=== PATIENT | male | born 1955 | race Caucasian/White ===

== ENCOUNTER 2019-04-13 14:34 | Emergency (ER) | payer MEDICARE ==
[~2019-04-13] VITALS: Ht 182.9 cm; Wt 127.5 kg
[2019-04-13] MEDS ORDERED: MELA3TAB60 PO (15:07)
[2019-04-13] MEDS ORDERED: TRAZ-186 PO (15:07)
[2019-04-13] MEDS ORDERED: CENT1TAB PO (15:07)
[2019-04-13] MEDS ORDERED: GRAL600T PO (15:07)
[2019-04-13] MEDS ORDERED: ACETAMINOPHEN 500 MG TAB PO ONE (15:45)
[2019-04-13] MEDS ORDERED: KETOROLAC 30 MG/ML VIAL (J1885) IM ONE (15:45)
[2019-04-13] MEDS ORDERED: LIDOCAINE 5% (LIDODERM) PATCH TD ONE (15:45)
[2019-04-13] MEDS ORDERED: LISI40TA PO (16:12)
[2019-04-13] MEDS ORDERED: ASPI81CH33 PO (16:12)
[2019-04-13] MEDS ORDERED: CHLO125TA PO (16:12)
[2019-04-13] MEDS ORDERED: XARE15TA PO (16:12)
[2019-04-13] MEDS ORDERED: OXYC-517 PO (16:12)
[2019-04-13] MEDS ORDERED: METO37.5 PO (16:12)
[2019-04-13] MEDS ORDERED: AMLO25TA PO (16:12)
[2019-04-13] MEDS ORDERED: POTA10TA17 PO (16:12)
[2019-04-13] MEDS ORDERED: PERCOCET 5MG/325MG TAB PO ONE (17:00)
[2019-04-13] MEDS ORDERED: PRED20TA PO (17:24)
[2019-04-13 17:30] VITALS: BP 148/78
[2019-04-13] MEDS ORDERED: **NOTE PATIENT COMMENT** MISC XX SCH (21:00)
== END 2019-04-13 17:39 | disposition home or self-care (01) ==
LOC: M ED 14:34
DX: M51.26 Other intervertebral disc displacement, lumbar region (principal); M48.07 Spinal stenosis, lumbosacral region; I10 Essential (primary) hypertension; G47.33 Obstructive sleep apnea (adult) (pediatric); F17.210 Nicotine dependence, cigarettes, uncomplicated
CPT/HCPCS: 96372; 99283; J1885

== ENCOUNTER 2020-01-13 10:28 | Inpatient (IN) | payer MEDICARE ==
[~2020-01-13] VITALS: Ht 182.9 cm; Wt 137.9 kg
[~2020-01-13 10:28] MED LIST: AMLO25TA PO; ASPI81CH33 PO; CENT1TAB PO; CHLO125TA PO; GRAL600T PO; LISI40TA PO; MELA3TAB7 PO; METO37.5 PO; OXYC-517 PO; POTA10TA17 PO; PRED20TA PO; TRAZ-186 PO; XARE15TA PO
[2020-01-13] MEDS ORDERED: NS 500 ML IV ONE (10:45)
[2020-01-13] MEDS ORDERED: AMLO10TA5 PO (10:56)
[2020-01-13] MEDS ORDERED: HYDR50TA70 PO (10:56)
[2020-01-13] MEDS ORDERED: METO1TAB87 PO (10:56)
[2020-01-13] MEDS ORDERED: NS 1,000 ML IV ONE ×2 (11:00→13:30)
[2020-01-13 11:21] LABS: BASO % 0.3 % (0.0-1.0); HEMATOCRIT 34.7 % (42.0-52.0); HEMOGLOBIN 11.5 g/dl (13.5-17.5); LYMPH # 1.6 10^3/uL (1.5-5.0); LYMPH % 11.7 % (24.0-44.0); MEAN CORPUSCULAR HEMOGLOBIN 35.2 pg (27.0-33.0); MEAN CORPUSCULAR HGB CONC 33.1 g/dl (32.0-36.5); MEAN CORPUSCULAR VOLUME 106.1 fl (80.0-96.0); MONO # 0.7 10^3/uL (0.0-0.8); MONO % 5.4 % (0.0-5.0); NEUTROPHILS # 10.9 10^3/uL (1.5-8.5); NEUTROPHILS % 81.8 % (36.0-66.0); PLATELET COUNT, AUTOMATED 211 10^3/uL (150-450); RED BLOOD COUNT 3.27 10^6/uL (4.30-6.10); WHITE BLOOD COUNT 13.3 10^3/uL (4.0-10.0)
[2020-01-13 11:32] LABS: INR 1.77; PROTHROMBIN TIME 20.4 SECONDS (11.8-14.0)
[2020-01-13 11:48] LABS: ALBUMIN 2.6 GM/DL (3.2-5.2); ALT/SGPT 149 U/L (12-78); BILIRUBIN,DIRECT 2.2 MG/DL (0.0-0.2); BILIRUBIN,TOTAL 3.6 MG/DL (0.2-1.0); BLOOD UREA NITROGEN 67 MG/DL (7-18); CALCIUM LEVEL 8.1 MG/DL (8.8-10.2); CARBON DIOXIDE LEVEL 19 MEQ/L (21-32); CHLORIDE LEVEL 91 MEQ/L (98-107); CK-MB VALUE MASS 15.8 NG/ML (<3.6); CPK CREATINE PHOSPHOKINASE 299 U/L (39-308); CREATININE FOR GFR 5.88 MG/DL (0.70-1.30); GLOMERULAR FILTRATION RATE 10.3 (>49); GLUCOSE, FASTING 99 MG/DL (70-100); LIPASE 47 U/L (73-393); MB/CK RELATIVE INDEX 5.28 (< OR =4); POTASSIUM SERUM 4.5 MEQ/L (3.5-5.1); SODIUM LEVEL 124 MEQ/L (136-145); TOTAL PROTEIN 5.9 GM/DL (6.4-8.2); TROPONIN I < 0.02 NG/ML (< 0.10)
[2020-01-13] MEDS ORDERED: ONDANSETRON 4MG/2ML VIAL IV ONE (12:15)
[2020-01-13] MEDS ORDERED: PANTOPRAZOLE SODIUM 40 MG in D5W 50 ML IV SCH (13:45)
[2020-01-13 13:48] LABS: CREATININE,RANDOM URINE 66.9 MG/DL; POTASSIUM RANDOM URINE 11.6 MEQ/L; TOTAL PROTEIN,RANDOM URINE 12.2 MG/DL (0.0-12.0)
[2020-01-13] MEDS ORDERED: OXAZEPAM 10 MG CAP PO PRN (14:00)
[2020-01-13 14:33] LABS: FERRITIN 2281 NG/ML (26-388); IRON (FE) 213 UG/DL (65-175); PERCENT SATURATION 108.1 % (19.7-50.0); TOTAL IRON BINDING CAPACITY 197 UG/DL (250-450)
[2020-01-13 15:07] LABS: FREE T4 0.99 NG/DL (0.76-1.46); MAGNESIUM LEVEL 1.2 MG/DL (1.8-2.4); THYROID STIMULATING HORMONE 0.856 uIU/ML (0.358-3.740)
[2020-01-13] MEDS ORDERED: hydrOXYzine 50 MG TAB PO PRN (15:15)
[2020-01-13] MEDS ORDERED: traZODone 50 MG TAB PO PRN (15:15)
[2020-01-13] MEDS ORDERED: oxyCODONE 5MG TAB PO ONE (15:15)
--- NOTE | 2020-01-13 15:39 | REP ---
REASON FOR EXAM: Hypotension. There are no priors for comparison. The lack of intravenous contrast markedly decreases the sensitivity of the exam. There is no gross mediastinal or hilar adenopathy. There are no pleural or pericardial effusions. For a description of the imaged upper abdomen, see the CT examination of the abdomen and pelvis report made the same day. Bone window technique throughout the exam shows age-related spinal degenerative changes. Evaluation of the lung martin shows basilar respiratory motion artifact obscuring the detail. No significant nodules, masses, or opacities are present. IMPRESSION: Negative limited CT examination of the chest. Electronically Signed by Cole Hernandez DO 01/13/2020 05:22 P
--- NOTE | 2020-01-13 15:52 | REP ---
REASON GIVEN FOR EXAM: Hypotension. The lack of administration of intravenous and oral bowel preparatory contrast decreases the sensitivity of the exam. There are no priors for comparison. There is an abnormal nodular surface to the liver and there is an abnormal caudate left lobe ratio. The images of the upper and mid abdomen obscured by respiratory motion artifact. There are no choleliths. There are no nephroliths. There is bilateral perinephric stranding. There is no hydronephrosis or hydroureter. There are no ureteroliths. Mode artifact from bilateral hip prostheses obscure multiple urinary bladder images. Small urinary bladder calculi cannot be ruled out. Limited evaluation of the intra-abdominal and intrapelvic bowel loops and their mesenteries show no gross abnormalities. Limited evaluation of the abdominal aorta and para-aortic regions show no gross abnormalities. Limited evaluation of the pancreas and adrenal glands show no gross abnormalities. The spleen is unremarkable in appearance although somewhat obscured but motion artifact. There is calcific atherosclerotic change seen in the abdominal aorta. No free fluid or free air is seen in the abdomen or pelvis. Bone window technique throughout the examination shows age-related chronic changes. IMPRESSION: There are cirrhotic features to the liver. This needs to be correlated clinically. Other findings and exam limitations as described above. There is no evidence of acute intra-abdominal or intrapelvic disease on this limited exam. Electronically Signed by Cole Hernandez DO 01/13/2020 05:22 P
[2020-01-13] MEDS: THIAMINE 200MG/2ML VIAL (J3411 PER 100MG) IV SCH ×2 (15:53→22:39)
--- NOTE | 2020-01-13 16:14 | HPE ---
DATE OF ADMISSION: 01/13/2020 CHIEF COMPLAINT: Black, tarry stools. HISTORY OF PRESENT ILLNESS: This is a 64-year-old alcoholic with liver cirrhosis, chronic atrial fibrillation, on Xarelto, who was in his usual state of health until Saturday, when he was driving back from getting blood tests done from his doctor's office with his niece when he had two to three episodes of black vomitus and black, tarry stools with complaints of dizziness and lightheadedness. He was drinking pints of vodka, because he was unable to get pain medications for his back for the past few days. He laid down in bed and put the fan on and had not been eating since Saturday. Patient on Saturday had some bilious emesis and had jet-black voluminous black, tarry stools twice Saturday night and once again Saturday morning, this time accompanied with shortness of breath with some epigastric discomfort without chest pain, pressure, or tightness, again with lightheadedness and dizziness but able to ambulate without falling. Patient says that he had had a prior colonoscopy with two polyps several years ago. No history of gastric varices or esophageal varices but does have a history of liver cirrhosis from alcohol use. Patient felt hot and cold without fever or chills last night. No prior episodes of this. He had been increasingly short of breath for several days and thought it was his chronic obstructive pulmonary disease (COPD). He does still smoke about one and one-half packs a day. Recently has been smoking just a few cigarettes. Patient otherwise denies any fever, chills, bright red blood per rectum, dysuria, urgency, frequency, polyuria, polydipsia, polyphagia, sore throat, changes in vision. He complains of some insomnia, unable to sleep for the last 4 days due to weakness and ongoing gastrointestinal (GI) bleed. Patient denies any nonsteroid anti-inflammatory use and says that he was using oxycodone 5 mg tablets, three tablets during the day, but ran out of prescription, which is why he had been drinking vodka in pints at home. PAST MEDICAL HISTORY: 1. Chronic atrial fibrillation. 2. Alcoholic liver cirrhosis. 3. Hypertension. 4. Chronic back pain. 5. Insomnia. 6. COPD. 7. Obstructive sleep apnea, not compliant. 8. Obesity, body mass index (BMI) of 39.3. 9. Active smoker. 10. Hypertension. PAST SURGICAL HISTORY: 1. Bilateral knee replacement times three. 2. Both hips replaced. SOCIAL HISTORY: Drinks a pint every day of vodka since his teenage years. Smokes one and one-half packs per day of cigarettes since the age of 16. No recreational drug use. Previous worked at [employer]. 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 No healthcare proxy. Full code. FAMILY HISTORY: Father at age 94 with cerebrovascular accident (CVA). No autopsy was performed. Mother at age 93 with coronary artery disease (CAD), myocardial infarction ([place]). He has one brother he does not speak to. REVIEW OF SYSTEMS: Per history of present illness (HPI). A 12-point system otherwise negative. PHYSICAL EXAMINATION: Temperature 97.9, pulse 143, respiratory rate 17, blood pressure 80/56, 98% on room air. GENERAL: Patient is awake, alert, oriented to person, place, and time, answering questions appropriately. No icterus. No jaundice. No pallor. No use of respiratory accessory muscles. No conversational dyspnea. HEENT: Pupils round, reactive. Extraocular muscles are intact. Normocephalic, atraumatic. Patient has no dried blood. Dry mucous membranes. No jugular venous distention (JVD), thyromegaly, cervical lymphadenopathy. No stridor on exam. LUNGS: Diminished with faint wheezing. Prolonged expiratory phase. HEART: S1, S2, irregularly irregular and tachycardic. ABDOMEN: Obese, Soft. Slightly tender in epigastric region. No rebound or guarding. No fluid wave. EXTREMITIES: Trace edema, bilateral lower extremities. EKG: Atrial fibrillation. Telemetry shows rate of 125. White count 13.3, hemoglobin 11.5, hematocrit 34.7, platelet count 211. Sodium 124, potassium 4.5, chloride 91, bicarbonate 19, BUN 67, creatinine 5.88, glucose 99, lactic acid 3.6, calcium 8.1. Iron 213, TIBC 1997, transferrin 108, ferritin 2281. Total bilirubin 3.6, direct bilirubin 2.2. AST 149, alkaline phosphatase 67. Ammonia 36. Total CK 299, MB fraction 15.8, troponin less than 0.02. Total protein 5.9, albumin 2.6. Microbiology: Two sets of blood cultures pending. CT chest, abdomen pelvis: Pending report. Blood type A positive, negative antibody screen. ASSESSMENT AND PLAN: This is a 64-year-old obese male, BMI of 39.3, obstructive sleep apnea (DEYSI), noncompliant, chronic atrial fibrillation, on Xarelto, hypertension, chronic alcohol abuse, active smoker, chronic back pain, presents to the emergency room with complaints of melena since Saturday and black vomitus. Patient is admitted for gastrointestinal (GI) bleed. CURRENT ISSUES: 1. ACUTE GI bleed with complaints of melena. Hemoglobin is 11.5. Patient complained of symptomatic anemia with lightheadedness and dizziness and worsening shortness of breath. This is in the setting of Xarelto use and alcoholic liver cirrhosis with probable portal gastropathy and possible peptic ulcer disease or alcoholic gastritis. He has been started on Protonix intravenous drip 80 mg intravenous (IV) bolus and 8 mg per hour, Carafate 1 gram suspension before food and at bedtime. Clear liquid diet for now. His Xarelto has been held due to active GI bleed. 2 Acute blood loss anemia secondary to melena, most likely upper GI bleed. General surgeon, Dr. Cardenas, has been consulted to schedule for esophagogastroduodenoscopy (EGD). We will need to see if he has clean base ulcers versus oozing versus variceal bleeding, currently on Protonix intravenous drip and Carafate. If varices are seen, we may need to use octreotide drip. At this time, patient has adequate IV access. If that becomes an issue, he may need a peripherally inserted central catheter (PICC) line or a central line placed by surgery. He is currently hemodynamically stable with systolic pressure improving after IV fluid hydration from 80/56 systolic to 120/61. He is 1.5 liter positive with no complaints of worsening shortness of breath. 3. COPD with wheezing, possible acute exacerbation. At this time, patient will be given nebulizer treatments around the clock with Xopenex, as the patient has significant tachycardia from his atrial fibrillation with rapid ventricular response (RVR). No steroid use for now due to active GI bleed. 4. Atrial fibrillation with RVR. Ventricular rate was 143 on arrival. Patient had chronic atrial fibrillation and will be resumed on his home metoprolol 25 twice a day. Xarelto will be held due to active bleeding. 5. Hypertension. Currently with low blood pressure. Will hold patient's lisinopril. He has been given IV fluids to improve his systolic pressure; however, for rate control he has been given 25 mg of Lopressor. 6. If needed, patient can be given IV boluses of normal saline to increase the blood pressure and be able to use the metoprolol for better rate control at 25 mg twice a day. Home dose for now but may be increased to every 6 hours for better rate control. Again, it has been explained to the patient that anticoagulation with Xarelto will be held in light of active GI bleed despite the risk of cerebrovascular accident (CVA). 7. Alcoholic liver cirrhosis. Patient is on Clinical Sarah [facility] Withdrawal Assessment (CIWA) protocol. Serax as needed every 6 hours for withdrawal symptoms. He has been given thiamine, multivitamin, and folic acid. IV fluids given for now. 8. Hyponatremia, most likely secondary to beer potomania. Monitor with every 6 hour metabolic panel. Try to avoid more than 12 mEq increase in the sodium due to central pontine myelolysis. 9. Acute kidney injury, creatinine of 5.88 due to significant diarrhea and vomiting with metabolic acidosis. At this time, patient has been given IV fluids. Will monitor strict intake and output, daily weights. Awaiting result of CT abdomen and pelvis to rule out obstructive causes. At this time it appears to be prerenal azotemia due to dehydration from both vomiting and diarrhea and continued beer and vodka use. 10. Metabolic acidosis secondary to renal failure. Will correct once the hydration is improved. 11. Abnormal liver function tests due to alcohol liver cirrhosis. Check hepatitis serology. 12. Abnormal cardiac markers due to severe anemia with possible demand-mediated ischemia. Will cycle cardiac markers. Unable to provide any anticoagulation due to active GI bleed. Monitor patient's blood pressure and transfuse blood if the hemoglobin is less than 9. 13. Code status is a full code. 14. Deep vein thrombosis (DVT) prophylaxis with compression stockings in light of acute GI bleed. MTDD
[2020-01-13] MEDS: FOLIC ACID 1 MG in NS 50 ML IV SCH (16:22)
--- NOTE | 2020-01-13 16:43 | CR.PDOC ---
General Surgery Consultation Date of Consultation 01/13/20 History and Physical CONSULT REPORT FOR: HOSPITALIST SERVICE (DELANO BARRETO MD) REASON FOR CONSULTATION: gastrointestinal bleeding HISTORY OF PRESENT ILLNESS: I'm being asked to consult on Mr. Johnson who presented himself to the emergency room today with complaints of three-day history of hematemesis and melena. He has a known history of alcoholic liver cirrhosis, continues to be an active drinker. He is also on Xarelto for chronic atrial fibrillation. He reports throwing up blood Saturday having some midepigastric discomfort. Patient reports some mild dizziness and lightheadedness. On Saturday he started having episodes of melena also had some bilious vomiting saturday evening. This prompted him to consult at the emergency room today and subsequently be admitted for suspicion of upper gastrointestinal bleeding probably related to his alcohol drinking and cirrhosis. He denies intake of any NSAIDs recently. He denies any prior episodes of similar symptoms. Last episode of melena was this morning. In the emergency room he is hemodynamically stable. His hemoglobin is 11.5 and hematocrit is 34.7. His platelets are 211 and INR is 1.7. He has elevated LFTs including a tot al bilirubin of 3.6 with a direct fraction of 2.2. PAST MEDICAL HISTORY: 1. Chronic atrial fibrillation 2. Alcoholic liver cirrhosis 3. Hypertension 4. Chronic back pain 5. Obstructive sleep apnea not on CPAP 6. Obesity BMI of 39.3 7. COPD PAST SURGICAL HISTORY: INCLUDES: 1. Bilateral hip replacement 2. Arthroscopic knee surgery PREVIOUS ANESTHESIA REACTIONS: Denies ALLERGIES: Please see below. FAMILY HISTORY: Noncontributory. HOME MEDICATIONS: Please see below. REVIEW OF SYSTEMS: GENERAL: Patient reports about 80 pounds weight gain for the past year. HEENT: Denies blurred vision and double vision. Denies ear symptoms. Denies hoarseness. NECK: Denies any neck pain CARDIOVASCULAR: Reports a vague midsternal chest discomfort. MUSCULOSKELETAL: Reports bed back, has been having problems with obtaining a medications for this. SKIN: Denies rash. NEUROLOGIC: Denies headache, stroke and transient ischemic attack. PSYCHIATRIC: Denies anxiety and depression. ENDOCRINE: Denies thyroid disease. HEMATOLOGY/ONCOLOGY: Patient is on Xarelto. Last intake was Saturday or Saturday. HEART: Denies any chest pains, palpitations, paroxysmal dyspnea, orthopnea. PULMONARY: Denies chronic cough, dyspnea and wheezing. GASTROINTESTINAL: See HPI. GENITOURINARY: Denies dysuria, frequency, hematuria and nocturia. ENDOCRINE: Denies polydipsia, polyphagia, polyuria, heat or cold intolerance. INFECTIOUS: Denies any recent upper respiratory tract infection, UTI, need for use of antibiotics. NUTRITION: Reports good appetite. PHYSICAL EXAMINATION: VITALS SIGNS: Please see below. GENERAL APPEARANCE: Patient seen at the critical care room, relatively comfortable in appearance. He is awake, alert and oriented. SKIN: Warm and dry. HEENT: Normocephalic, atraumatic. [place] palpebral conjunctiva, anicteric s clerae. Lips and mucosa appear dry. NECK: Supple, no thyromegaly. No obvious jugular venous distention. LUNGS: Clear to auscultation bilaterally. No wheezing appreciated. HEART: No chest wall abnormalities. irregular rate and rhythm. ABDOMEN: Abdomen is obese, soft, round. Small visible superficial abdominal veins. No umbilical herniation. Nontender on palpation. EXTREMITIES: No significant extremity edema ANCILLARIES: . LABORATORY DATA: Please see below. IMAGING STUDIES: His CT of abdomen and pelvis as well as a chest CT performed in the emergency room. He does have a cirrhotic-appearing liver. No associated ascites IMPRESSION AND PLAN: Upper gastrointestinal bleeding Liver cirrhosis Patient started having symptoms Saturday with hematemesis and has been having melena for the past 3 days. He looks to be try and he does have some mild acidosis. His hemoglobin is relatively stable at 11.5. His last intake, Xarelto was at least 2 days ago. We will proceed with an upper endoscopy and paper particular attention and local for esophageal varices reviewed and gastric repair see some other sources of possible bleed on the cirrhotic patient. I discussed with him possible need for intervention including variceal banding, injection or sclerosis. Consent was obtained from the patient. He currently is on an octreotide drip as well as a Protonix drip. Likewise is getting IV fluids for hydration. We will proceed with upper endoscopy with availability of the operating room.. Vital Signs Vital Signs Date Time Temp Pulse Resp B/P (MAP) Pulse Ox O2 Delivery O2 Flow Rate FiO2 01/13/20 15:57 96/50 01/13/20 15:47 91 93 Room Air 01/13/20 15:17 18 01/13/20 14:17 97.9 Laboratory Data Labs 24H Laboratory Tests 2 01/13/20 10:58: Immature Granulocyte % (Auto) 0.8, Neutrophils (%) (Auto) 81.8H, Lymphocytes (%) (Auto) 11.7L, Monocytes (%) (Auto) 5.4H, Eosinophils (%) (Auto) 0.0, Basophils (%) (Auto) 0.3, Neutrophils # (Auto) 10.9H, Lymphocytes # (Auto) 1.6, Monocytes # (Auto) 0.7, Eosinophils # (Auto) 0.0, Basophils # (Auto) 0.0, Reticulocyte # (auto) 79.4H, Nucleated Red Blood Cells % (auto) 0.0, Differential Slide Review Report, Peripheral Blood Smear Path Consult PERIPHERAL SMEAR, Percent Reticulocyte Count 2.5H, Reticulocyte Hemoglobin Equivalent 39.7H, Prothrombin Time 20.4H, Prothromb Time International Ratio 1.77, Anion Gap 14, Glomerular Filtration Rate 10.3L, Lactic Acid Level 3.6*H, Calcium Level 8.1L, Iron Level 213H, Total Iron Binding Capacity 197L, Transferrin % Saturation 108.1H, Ferritin 2281H, Total Bilirubin 3.6H, Direct Bilirubin 2.2H, Aspartate Amino Transf (AST/SGOT) 230H, Alanine Aminotransferase (ALT/SGPT) 149H, Alkaline Scout sphatase 67, Ammonia 36H, Total Creatine Kinase 299, Creatine Kinase MB 15.8H, Creatine Kinase MB Relative Index 5.28H, Troponin I < 0.02, Total Protein 5.9L, Albumin 2.6L, Albumin/Globulin Ratio 0.8, Lipase 47L 01/13/20 13:03: Urine Random Osmolality 271L, Urine Random Creatinine 66.9, Urine Random Total Protein 12.2H, Urine Random Sodium 64, Urine Random Potassium 11.6 01/13/20 13:06: Urine Color YELLOW, Urine Appearance CLEAR, Urine pH 5.0, Urine Specific [place] 1.005, Urine Protein NEGATIVE, Urine Glucose (UA) NEGATIVE, Urine Ketones NEGATIVE, Urine Blood 1+H, Urine Nitrite NEGATIVE, Urine Bilirubin NEGATIVE, Urine Urobilinogen 0.2, Urine Leukocyte Esterase NEGATIVE, Urine WBC (Auto) 1, Urine RBC (Auto) 4H, Urine Hyaline Casts (Auto) 0, Urine Bacteria (Auto) NEGATIVE, Urine Squamous Epithelial Cells 0, Urine Sperm (Auto) 01/13/20 14:10: Total Creatine Kinase 378H, Osmolality 304H, Magnesium Level 1.2L, Thyroid Stimulating Hormone (TSH) 0.856, Free Thyroxine 0.99 01/13/20 15:24: 01/13/20 15:55: CBC/BMP Laboratory Tests 01/13/20 10:58 Microbiology Microbiology 01/13/20 Blood Culture, Received Pending 01/13/20 Blood Culture, Received Pending Home Medications Scheduled Amlodipine Besylate (Amlodipine Besylate) 10 Mg Tablet, 10 MG PO DAILY, (Reported) Chlorthalidone (Chlorthalidone) 25 Mg Tablet, 25 MG PO DAILY, (Reported) Lisinopril (Lisinopril) 40 Mg Tablet, 40 MG PO DAILY, (Reported) Metoprolol Tartrate (Metoprolol Tartrate) 25 Mg Tablet, 25 MG PO BID, (Reported) Multivit-Min/FA/Lycopen/Lutein (Centrum Silver Tablet) 1 Each Tablet, 1 TAB PO DAILY, (Reported) Rivaroxaban (Xarelto) 15 Mg Tablet, 15 MG PO DAILY, (Reported) Scheduled PRN Hydroxyzine HCl (Hydroxyzine HCl) 50 Mg Tablet, 50 MG PO QHS PRN for SLEEP, (Reported) Oxycodone HCl (Oxycodone HCl) 5 Mg Tablet, 5 MG PO Q8H PRN for pain, (Reported) Trazodone HCl (Trazodone HCl) 50 Mg Tablet, 75 MG PO QHS PRN for SLEEP, (Reported) Allergies Coded Allergies: No Known Allergies (Unverified , 04/13/19) CONNER BEAN MD Jan 13, 2020 16:43
[2020-01-13 17:00] VITALS: BP 101/74
[2020-01-13] MEDS: METOPROLOL TART 25 MG TABLET PO SCH ×2 (17:40→21:00)
[2020-01-13] MEDS ORDERED: OCTREOTIDE ACETATE 1,200 MCG in NS 238.8 ML IV SCH (18:00)
[2020-01-13] MEDS: NS 1,000 ML IV SCH ×3 (18:41→22:39)
[2020-01-13] MEDS: MULTIVITAMINS/MINERALS THERAP 1 TAB PO SCH (18:41)
[2020-01-13] MEDS: ONDANSETRON 4MG/2ML VIAL IV SCH (18:41)
[2020-01-13] MEDS: SUCRALFATE SUSP 1GM/10ML UD PO SCH ×3 (18:41→22:38)
[2020-01-13 18:44] LABS: HEMATOCRIT 31.8 % (42.0-52.0); HEMOGLOBIN 10.4 g/dl (13.5-17.5)
[2020-01-13 19:07] LABS: CALCIUM LEVEL 7.2 MG/DL (8.8-10.2); CREATININE FOR GFR 4.95 MG/DL (0.70-1.30); GLOMERULAR FILTRATION RATE 12.6 (>49); POTASSIUM SERUM 4.2 MEQ/L (3.5-5.1)
[2020-01-13 20:30] VITALS: BP 114/69
[2020-01-13] MEDS ORDERED: LIDOCAINE 2% 100MG/5ML SDV (FOR ANES.) As Ordered ONE (20:46)
[2020-01-13] MEDS ORDERED: propofoL 200 MG/20 ML VIAL As Ordered ONE ×2 (20:46→21:26)
--- NOTE | 2020-01-13 21:43 | ROOR ---
Patient Name: Sebastian Johnson Procedure Date: 01/13/2020 7:50 PM Date of : 1955 Age: 64 Gender: Male Note Status: Finalized Procedure: Upper GI endoscopy Indications: Acute post hemorrhagic anemia Providers: Dale Cardenas MD Referring MD: 2. Inpatient 2. Inpatient Requesting Provider: Medicines: Monitored Anesthesia Care Complications: No immediate complications. Procedure: Pre-Anesthesia Assessment: - Prior to the procedure, a History and Physical was performed, and patient medications and allergies were reviewed. The patient is competent. The risks and benefits of the procedure and the sedation options and risks were discussed with the patient. All questions were answered and informed consent was obtained. Patient identification and proposed procedure were verified by the physician, the nurse and the anesthesiologist in the procedure room. Mental Status Examination: alert and oriented. Airway Examination: normal oropharyngeal airway and neck mobility. Respiratory Examination: clear to auscultation. CV Examination: irregularly irregular rate and rhythm. Prophylactic Antibiotics: The patient does not require prophylactic antibiotics. Prior Anticoagulants: The patient has taken Xarelto (rivaroxaban), last dose was 2 days prior to procedure. ASA Grade Assessment: III - A patient with severe systemic disease. After reviewing the risks and benefits, the patient was deemed in satisfactory condition to undergo the procedure. The anesthesia plan was to use monitored anesthesia care (MAC). Immediately prior to administration of medications, the patient was re-assessed for adequacy to receive sedatives. The heart rate, respiratory rate, oxygen saturations, blood pressure, adequacy of pulmonary ventilation, and response to care were monitored throughout the procedure. The physical status of the patient was re-assessed after the procedure. The Endoscope was introduced through the mouth, and advanced to the second part of duodenum. The upper GI endoscopy was accomplished without difficulty. The patient tolerated the procedure well. Findings: There is no endoscopic evidence of bleeding, areas of erosion, esophagitis or varices in the entire esophagus. Diffuse mild inflammation with hemorrhage characterized by adherent blood, congestion (edema), friability and linear erosions was found in the gastric body. For hemostasis, one hemostatic clip was successfully placed (MR conditional). There was no bleeding at the end of the procedure. No ulcers, but with diffuse friability, contact bleeding at the mid body. There is ome persistent slow oozing at the distal body that was clipped with good hemostasis. Diffuse granular mucosa was found in the duodenal bulb. The second portion of the duodenum was normal. Impression: - Acute gastritis with hemorrhage. Clip (MR conditional) was placed. - No specimens collected. Recommendation: - Admit the patient to [facility] for [facility] care. - Use Protonix (pantoprazole) 40 mg PO BID for 6 weeks. Dale Cardenas MD Dale Cardenas MD 01/13/2020 9:42:27 PM Electronically signed by Dale Cardenas MD Number of Addenda: 0 Note Initiated On: 01/13/2020 7:50 PM Estimated Blood Loss: Estimated blood loss was minimal.
[2020-01-13 22:30] VITALS: BP 101/75
[2020-01-13] MEDS: oxyCODONE 5MG TAB PO PRN (22:47)
[2020-01-13 23:00] VITALS: BP 98/65
[2020-01-13 23:30] VITALS: BP 106/64
[2020-01-14] VITALS (8 sets, daily range): BP systolic 96–133; BP diastolic 54–84
--- NOTE | 2020-01-14 00:19 | ECGEPIP ---
[facility] - ED Test Date: 2020-01-13 Pat Name: KATHIE FOFANA Department: Room: - Gender: Male Plant [employer]: : 1955 Requested By: Trini Rodriguez Order Number: [id number] Reading MD: Reynold Ray Measurements Intervals [place] Rate: 120 P: [place]: 0 QRS: 56 QRSD: 77 T: 56 QT: 311 QTc: 439 Interpretive Statements ATRIAL FIBRILLATION WITH RAPID VENTRICULAR RESPONSE Low QRS complex voltage in the limb leads Nonspecific ST-T wave abnormalities Comparison tracing not on file Electronically Signed on 01-14-2020 0:18:30 EDT by Reynold Ray
[2020-01-14] MEDS: ONDANSETRON 4MG/2ML VIAL IV SCH ×4 (00:38→17:54)
[2020-01-14 00:42] LABS: HEMATOCRIT 31.8 % (42.0-52.0); HEMOGLOBIN 10.6 g/dl (13.5-17.5)
[2020-01-14 01:25] LABS: CALCIUM LEVEL 7.3 MG/DL (8.8-10.2); CREATININE FOR GFR 4.88 MG/DL (0.70-1.30); GLOMERULAR FILTRATION RATE 12.8 (>49); POTASSIUM SERUM 4.4 MEQ/L (3.5-5.1)
[2020-01-14 07:47] LABS: BASO % 0.4 % (0.0-1.0); EOS # 0.1 10^3/uL (0.0-0.5); EOS % 0.6 % (0.0-3.0); HEMATOCRIT 30.2 % (42.0-52.0); HEMOGLOBIN 9.9 g/dl (13.5-17.5); LYMPH # 2.3 10^3/uL (1.5-5.0); LYMPH % 27.4 % (24.0-44.0); MEAN CORPUSCULAR HEMOGLOBIN 34.9 pg (27.0-33.0); MEAN CORPUSCULAR HGB CONC 32.8 g/dl (32.0-36.5); MEAN CORPUSCULAR VOLUME 106.3 fl (80.0-96.0); MONO # 0.6 10^3/uL (0.0-0.8); MONO % 7.6 % (0.0-5.0); NEUTROPHILS # 5.2 10^3/uL (1.5-8.5); NEUTROPHILS % 63.4 % (36.0-66.0); PLATELET COUNT, AUTOMATED 123 10^3/uL (150-450); RED BLOOD COUNT 2.84 10^6/uL (4.30-6.10); WHITE BLOOD COUNT 8.3 10^3/uL (4.0-10.0)
[2020-01-14 08:07] LABS: ALBUMIN 2.4 GM/DL (3.2-5.2); BILIRUBIN,TOTAL 1.6 MG/DL (0.2-1.0); CALCIUM LEVEL 7.1 MG/DL (8.8-10.2); CREATININE FOR GFR 4.49 MG/DL (0.70-1.30); GLOMERULAR FILTRATION RATE 14.1 (>49); MAGNESIUM LEVEL 1.3 MG/DL (1.8-2.4); POTASSIUM SERUM 4.1 MEQ/L (3.5-5.1); TOTAL PROTEIN 5.3 GM/DL (6.4-8.2)
[2020-01-14] MEDS: THIAMINE 200MG/2ML VIAL (J3411 PER 100MG) IV SCH ×2 (08:21→21:28)
[2020-01-14] MEDS: SUCRALFATE SUSP 1GM/10ML UD PO SCH ×4 (08:21→21:26)
[2020-01-14] MEDS: MULTIVITAMINS/MINERALS THERAP 1 TAB PO SCH (08:22)
[2020-01-14] MEDS: METOPROLOL TART 25 MG TABLET PO SCH ×2 (08:22→21:00)
[2020-01-14] MEDS: oxyCODONE 5MG TAB PO PRN ×3 (08:23→21:27)
[2020-01-14] MEDS ORDERED: NS 500 ML IV ONE (08:30)
[2020-01-14] MEDS ORDERED: PANTOPRAZOLE 40MG VIAL (C9113 PER 1) IV SCH (09:00)
[2020-01-14] MEDS: MAG SULF 1GM/100ML (MAG RUN) 1 GM in IV 1 EA IV SCH ×3 (09:57→12:11)
[2020-01-14] MEDS: NS 1,000 ML IV SCH ×2 (09:57→17:56)
--- NOTE | 2020-01-14 14:50 | IPNPDOC ---
Text Note Date of Service The patient was seen on 01/14/20. NOTE Subjective: Patient is a 64-year-old male with a PMHx of Alcoholic liver cirrhosis, Chronic A. fib (on Xarelto), HTN, COPD, DEYSI (not complaint with CPAP), Obesity, Chronic back pain, Insomnia, Active smoker who presented to the hospital with complaints of dark colored stool and vomiting of dark colored vomitus on Saturday. Patient continues to experience episodes of dark-colored stool Saturday and Saturday morning. Patient came to the emergency room after he began to experience some chest discomfort and shortness of breath. Patient was admitted to the hospitalist service for acute blood loss anemia in general surgery was consulted for EGD Patient was seen and examined at the bedside. Patient reports that he's feeling better. Denies any chest pain, shortness of breath or palpitations. Has not experienced any further nausea or vomiting. Has not had any bowel movements since the ER yesterday. Denies any urinary discomfort. Objective: Vitals (See below) General: Lying in bed, appears comfortable, AAOx3 HEENT: NC, AT CVS: +S1S2 Lungs: Fair air entry b/l, no appreciable wheezing, rhonchi or rales Abdomen: Soft, ND, NT Extremities: No evidence of LE edema, - Calf tenderness Assessment and plan: Acute blood loss anemia / symptomatic anemia - likely 2/2 upper GI bleed - 2/2 - Patient denies any recent nausea, vomiting episodes this morning. Has not had a bowel movement since yesterday when he was in the ER - Reports that he feels significantly better from the point of admission - Hemodynamically stable and afebrile - Hg remains stable; has not required any transfusions - Will continue to follow H&H - EGD 01/12: Acute gastritis with hemorrhage. s/p clip - s/p Octreotide drip - Will DC Protonix IV and transition to Protonix PO - Will advance diet - Case discussed with general surgery, Dr. Cardenas - on consultation; will continue to advance diet and adjust medications to PO form; will continue to hold Xarelto for 14 days Chronic COPD - No evidence of exacerbation - Chest CT 01/12: Negative limited CT examination of the chest. - c/w inhaled therapy as ordered Atrial fibrillation with RVR - Patient was tachycardic on admission - c/w Metoprolol for rate control - s/p Xarelto (re: acute GI bleed) HTN - BP well controlled currently - Chlorthalidone / Lisinopril / Amlodipine on hold for now - c/w metoprolol with hold parameters Alcoholic liver cirrhosis - Abdomen is benign on examination - AST / ALT improving; Ratio at 2:1 - CT abdomen / pelvis 01/12: There are cirrhotic features to the liver. This needs to be correlated clinically. Alcohol abuse - Advised cessation of alcohol consumption - c/w Thiamine, Folate, MVI - c/w [facility] Protocol Acute kidney injury - likely 2/2 pre-renal etiology - c/w IV fluid hydration - Nephrology has been called on consultation Hyponatremia - likely 2/2 hypotonic hypovolemic etiology - s/p IV fluid hydration - Will repeat BMP this afternoon - Nephrology has been called on consultation s/p Metabolic acidosis - possibly 2/2 renal failure DVT prophylaxis - c/w TEDs/Sequentials Disposition: - Awaiting improvement of renal function - Will monitor Na levels - Will ensure H&H stability VS,Dariae, I+O VS, Dariae, I+O Laboratory Tests 01/13/20 18:23 01/14/20 00:18 01/14/20 07:29 Vital Signs Date Time Temp Pulse Resp B/P (MAP) Pulse Ox O2 Delivery O2 Flow Rate FiO2 01/14/20 09:20 18 Room Air 01/14/20 08:23 130/70 01/14/20 08:22 85 01/14/20 06:00 97.4 93 I&O- Last 24 Hours up to 6 AM 01/14/20 06:00 Intake Total 3200 ml Output Total 1000 ml Balance 2200 ml ONUR SOLITARIO MD Jan 14, 2020 14:50
[2020-01-14 16:00] LABS: BASO % 0.4 % (0.0-1.0); EOS # 0.1 10^3/uL (0.0-0.5); EOS % 1.4 % (0.0-3.0); HEMATOCRIT 30.4 % (42.0-52.0); HEMOGLOBIN 9.9 g/dl (13.5-17.5); LYMPH # 2.2 10^3/uL (1.5-5.0); LYMPH % 26.9 % (24.0-44.0); MEAN CORPUSCULAR HEMOGLOBIN 35.4 pg (27.0-33.0); MEAN CORPUSCULAR HGB CONC 32.6 g/dl (32.0-36.5); MEAN CORPUSCULAR VOLUME 108.6 fl (80.0-96.0); MONO # 0.8 10^3/uL (0.0-0.8); MONO % 9.6 % (0.0-5.0); NEUTROPHILS # 4.9 10^3/uL (1.5-8.5); NEUTROPHILS % 61.2 % (36.0-66.0)
--- NOTE | 2020-01-14 16:00 | IPNPDOC ---
Text Note Date of Service The patient was seen on 01/14/20. NOTE I followed up in the patient today. Endoscopy done yesterday shows mainly terry ritis without any ulcerations nor any evidence of varices. He denies any abdominal pain. No clinical signs of bleeding. Vital signs Hemodynamically stable non-tachycardic On exam Patient looks very comfortable Abdomen is soft, nondistended, nontender Irregular, irregular heart rate Impression Upper GI bleed secondary to gastritis Liver cirrhosis Continue with twice a day PPI for at least 6 weeks. I'll advance him to a soft diet if he is able to tolerate it can go home with this type of diet. Continue to hold the surrounding toe for 2 weeks. Patient is advised to refrain from alcohol intake He probably should have an outpatient referral to gastroenterology with regards to his liver cirrhosis, abnormal LFTs. VS,Fishbone, I+O VS, Fishbone, I+O Laboratory Tests 01/13/20 18:23 01/14/20 00:18 01/14/20 07:29 Vital Signs Date Time Temp Pulse Resp B/P (MAP) Pulse Ox O2 Delivery O2 Flow Rate FiO2 01/14/20 14:00 97.3 93 19 133/84 (100) 99 Room Air I&O- Last 24 Hours up to 6 AM 01/14/20 05:59 Intake Total 2900 ml Output Total 625 ml Balance 2275 ml CONNER BEAN MD Jan 14, 2020 16:00
[2020-01-14] MEDS: FOLIC ACID 1 MG in NS 50 ML IV SCH (16:12)
[2020-01-14 17:27] LABS: CALCIUM LEVEL 7.1 MG/DL (8.8-10.2); CREATININE FOR GFR 4.21 MG/DL (0.70-1.30); GLOMERULAR FILTRATION RATE 15.2 (>49); MAGNESIUM LEVEL 2.1 MG/DL (1.8-2.4)
[2020-01-14] MEDS: GABAPENTIN 100 MG CAP PO SCH (17:54)
[2020-01-14] MEDS: PANTOPRAZOLE 40MG TAB (PROTONIX) PO SCH (21:27)
[2020-01-15] MEDS: ONDANSETRON 4MG/2ML VIAL IV SCH ×5 (00:48→23:43)
[2020-01-15 06:00] VITALS: BP 98/72
[2020-01-15] MEDS: SUCRALFATE SUSP 1GM/10ML UD PO SCH ×4 (07:56→20:22)
[2020-01-15] MEDS: METOPROLOL TART 25 MG TABLET PO SCH ×2 (09:00→20:24)
[2020-01-15] MEDS: PANTOPRAZOLE 40MG TAB (PROTONIX) PO SCH ×2 (09:34→20:24)
[2020-01-15] MEDS: MULTIVITAMINS/MINERALS THERAP 1 TAB PO SCH (09:34)
[2020-01-15] MEDS: THIAMINE 200MG/2ML VIAL (J3411 PER 100MG) IV SCH ×2 (09:34→20:22)
[2020-01-15] MEDS: GABAPENTIN 100 MG CAP PO SCH ×2 (09:34→20:23)
[2020-01-15] MEDS: oxyCODONE 5MG TAB PO PRN ×2 (09:45→20:23)
--- NOTE | 2020-01-15 09:48 | CR ---
DATE OF CONSULTATION: 01/14/2020 REQUESTING PHYSICIAN: Dr. Chandra Holley CONSULTING PHYSICIAN: Dr. Lomas REASON FOR CONSULTATION: Management of acute renal failure. CHIEF COMPLAINT: The patient presented to the hospital yesterday with hematemesis and melena. HISTORY OF PRESENT ILLNESS: Mr. Sebastian Johnson is a 64-year-old male with past medical history of hypertension, liver cirrhosis, chronic atrial fibrillation anticoagulated with Xarelto, and unknown baseline renal function. He presented to the emergency room yesterday with about 3-day history of coffee-ground emesis and black tarry stools and because of that the patient was dizzy and lightheaded. He kept taking his pain medications and also admits to drinking alcohol. He drank about a pint of vodka. He was admitted under the hospitalist service with acute upper gastrointestinal (GI) bleed. He was also in atrial fibrillation with rapid ventricular response (RVR) on arrival. The patient was found to have a creatinine of 5.8. He got volume resuscitated on arrival. He got emergent upper GI endoscopy done and two clips were placed. The nephrology service was called for further help in the management of this patient's acute renal failure. I saw and evaluated the patient today morning at the bedside. He was getting IV fluid hydration. The patient was feeling very hungry and he reports no more episodes of vomiting or melena after the procedure. The patient reports that his urine output is improving today as compared with yesterday. PAST MEDICAL HISTORY: Past medical history of liver cirrhosis, history of hypertension, chronic atrial fibrillation, history of alcohol abuse, hypertension, chronic back pain, chronic obstructive pulmonary disease (COPD), obstructive sleep apnea noncompliant with C-PAP. PAST SURGICAL HISTORY: Bilateral knee replacements and hip replacements. ALLERGIES: NO KNOWN DRUG ALLERGIES. FAMILY HISTORY: No significant family history of end-stage renal disease requiring hemodialysis. SOCIAL HISTORY: The patient lives at home. He drinks a pint of Vodka every day. He smokes one and half pack of cigarettes daily since age 16. REVIEW OF SYSTEMS: Constitutional: The patient was weak on arrival; however, he feels much better today. He denies any fevers or chills. Eyes: He denies any blurry vision or double vision. ENT: He denies any dysphagia or odynophagia. Cardiovascular: He denies any chest pain, but he did have atrial fibrillation with RVR on arrival yesterday. Respiratory: He denies any shortness of breath at this time. GI: He had melena and hematemesis on arrival; however, he denies any episodes at this time. Genitourinary: He reports improving urine output. Musculoskeletal: He denies any muscle aches and pains. Skin: He denies any rashes or ulcers. Hematology/Oncology: He had GI bleed on arrival. Skin: He denies any rashes or ulcers. Endocrine: He denies any history of diabetes. PEDIATRIC SPEECH LANGUAGE PATHOLOGIST: He denies any seizures or stroke. All other review of systems is negative. PHYSICAL EXAMINATION: General: The patient is awake, alert, oriented x3, morbidly obese, laying in the bed. Vital Signs: Temperature 97.4 degrees Fahrenheit, blood pressure 102/81, pulse is 93, respiratory rate of 20, saturating 93% on room air. The patient was hypotensive on arrival yesterday with a blood pressure of 80/56 recorded yesterday. Head and Neck Exam: Extraocular muscles intact. Pupils equally round and reactive to light. Mucous membranes are moist. Neck is supple. There is no jugular venous distention (JVD). Cardiovascular: S1, S2. Regular rate. No edema of the bilateral lower extremities. Respiratory: Chest is clear to auscultation bilaterally. Bilateral equal air entry. No rales or rhonchi. Abdomen: Soft, obese, positive bowel sounds. Nontender. No organomegaly was noted. Genitourinary: Bladder is not palpable. Musculoskeletal: No clubbing or cyanosis. Pulses are 2+. PEDIATRIC SPEECH LANGUAGE PATHOLOGIST: No focal deficit. Power is 5/5 in all extremities. Skin: No rashes or ulcers. LAB REVIEW: CBC showed a WBC of 8, hemoglobin is 9.9 and platelets are 123. INR was 1.7 yesterday. Urinalysis on arrival showed 1+ blood, no protein. BMP on arrival showed sodium 124, potassium 4.5, chloride 91, bicarb 19, BUN 67, creatinine 5.8, calcium 8.1, total bilirubin 3.6, AST 230, ALT 149, ammonia was 36. He had a lactate of 3.6 on arrival. BMP done today morning showed sodium 132, potassium 4, chloride 100, bicarb 23, BUN 55, creatinine 4.2, calcium 7.1, and magnesium is 2.1. Microbiology: Blood cultures negative. GI panel is negative. IMAGING: CT scan of the abdomen and pelvis was done on arrival which showed cirrhotic features of the liver, otherwise no acute intra-abdominal pathology. A CT of the chest was done yesterday which showed no acute findings. HOME MEDICATIONS INCLUDE: - amlodipine 10 mg daily - chlorthalidone 25 mg by mouth daily - hydroxyzine p.r.n. - lisinopril 40 mg daily - metoprolol 25 mg by mouth twice a day - multivitamin - oxycodone 5 mg by mouth every 8 hours p.r.n. pain - Xarelto 15 mg by mouth daily - trazodone 75 mg at bedtime p.r.n. to help with sleep CURRENT INPATIENT MEDICATIONS: - IV magnesium sulfate every 1 hour x3 doses - folic acid 1 mg IV daily - he was given normal saline bolus and is getting 100 mL an hour of IV fluid now - he was initially on octreotide drip which has been stopped - gabapentin 100 mg by mouth twice a day - hydroxyzine p.r.n. - metoprolol 25 mg by mouth twice a day - multivitamin - Zofran p.r.n. - oxycodone p.r.n. - Protonix 40 mg by mouth twice a day - Carafate 1 gram before meals and at bedtime - thiamine 100 mg IV twice a day - trazodone at bedtime ASSESSMENT: 64-year-old male with history of hypertension, alcoholic liver cirrhosis, morbid obesity, and COPD admitted at this time with acute upper GI bleed, status post esophagogastroduodenoscopy (EGD), and he has acute renal failure. PLAN: 1. Acute nonoliguric renal failure. It is most likely multifactorial secondary to use of SALOMÓN inhibitors and thiazide diuretic at home. 2. Hemorrhagic shock and hypotension on arrival. 3. History of liver cirrhosis and intravascular volume depletion because of hypoalbuminemia. The patient is responding well after IV fluid hydration and resuscitation. Continue to hold SALOMÓN inhibitors and diuretics. No need of aggressive IV fluid hydration. If the patient starts eating and drinking liquids, that should be enough to keep himself hydrated and I am hopeful that his renal function should keep on improving and should go to baseline over the next 2-3 days. 4. Hyponatremia. The patient had hypovolemic hyponatremia. Sodium level has improved to 132. No further need of aggressive normal saline hydration at this time. 5. Anemia secondary to upper GI bleed. The patient did not require any blood transfusion. He is status post EGD and two clips placement in the stomach. Continue current dose of Protonix and Carafate. 6. History of hypertension. The patient came in with hypotension and shock. Blood pressures are acceptable at this time. Okay to continue current dose of metoprolol only. 7. Atrial fibrillation with RVR. The patient had RVR on arrival; however, heart rate is better controlled with the current dose of metoprolol. Anticoagulation is on hold because of upper GI bleed. 8. History of liver cirrhosis. The patient does not have significant ascites. His blood pressures are stable, although albumin level is low. The patient does not need any IV albumin. The patient does not have hepatorenal syndrome. Acute kidney injury (VANDANA) is secondary to hypotension induced acute tubular necrosis (ATN). 9. History of alcohol abuse. The patient is on thiamine, folic acid and alcohol withdrawal precautions Thank you for involving me in the care of this patient. I shall be happy to follow the patient along with you tomorrow morning.
[2020-01-15 09:51] LABS: BASO # 0.1 10^3/uL (0.0-0.2); BASO % 0.7 % (0.0-1.0); EOS # 0.1 10^3/uL (0.0-0.5); EOS % 1.7 % (0.0-3.0); HEMATOCRIT 34.5 % (42.0-52.0); HEMOGLOBIN 11.4 g/dl (13.5-17.5); LYMPH # 2.1 10^3/uL (1.5-5.0); LYMPH % 27.8 % (24.0-44.0); MEAN CORPUSCULAR HEMOGLOBIN 35.4 pg (27.0-33.0); MEAN CORPUSCULAR VOLUME 107.1 fl (80.0-96.0); MONO # 0.6 10^3/uL (0.0-0.8); MONO % 7.8 % (0.0-5.0); NEUTROPHILS # 4.7 10^3/uL (1.5-8.5); NEUTROPHILS % 61.6 % (36.0-66.0); PLATELET COUNT, AUTOMATED 128 10^3/uL (150-450); RED BLOOD COUNT 3.22 10^6/uL (4.30-6.10); WHITE BLOOD COUNT 7.6 10^3/uL (4.0-10.0)
[2020-01-15 10:25] LABS: ALBUMIN 2.8 GM/DL (3.2-5.2); BILIRUBIN,TOTAL 1.1 MG/DL (0.2-1.0); CALCIUM LEVEL 7.3 MG/DL (8.8-10.2); CREATININE FOR GFR 3.41 MG/DL (0.70-1.30); GLOMERULAR FILTRATION RATE 19.4 (>49); MAGNESIUM LEVEL 1.9 MG/DL (1.8-2.4); POTASSIUM SERUM 4.1 MEQ/L (3.5-5.1); TOTAL PROTEIN 6.5 GM/DL (6.4-8.2)
--- NOTE | 2020-01-15 11:15 | IPNPDOC ---
Text Note Date of Service The patient was seen on 01/15/20. NOTE Subjective: Patient is a 64-year-old male with a PMHx of Alcoholic liver cirrhosis, Chronic A. fib (on Xarelto), HTN, COPD, DEYSI (not complaint with CPAP) , Obesity, Chronic back pain, Insomnia, Active smoker who presented to the hospital with complaints of dark colored stool and vomiting of dark colored vomitus on Saturday. Patient continues to experience episodes of dark-colored stool Saturday and Saturday morning. Patient came to the emergency room after he began to experience some chest discomfort and shortness of breath. Patient was admitted to the hospitalist service for acute blood loss anemia in general surgery was consulted for EGD Patient was seen and examined at the bedside. Patient appears to be comfortable, chest pain, shortness of breath or palpitations. Has not expense any nausea, vomiting, abdominal pain, has yet to have a bowel movement. Objective: Vitals (See below) General: Sitting up in bed, appears to be comfortable, awake and alert, oriented 3 HEENT: NC, AT CVS: +S1S2 Lungs: Auscultation reveals air entry bilaterally, without any auscultated rhonchi, crackles or wheezing Abdomen: Abdomen is soft, without any distention/tenderness Extremities: Lower extremities are free of any pitting edema, - Calf tenderness Assessment and plan: Acute blood loss anemia / symptomatic anemia - likely 2/2 upper GI bleed - 2/2 acute gastritis with hemorrhage - Denies any N/V, has not had any bowel movements in >24 hours - Remains hemodynamically stable and afebrile - Hg remains stable; has not required any transfusions - EGD 01/12: Acute gastritis with hemorrhage. s/p clip - s/p Octreotide drip; s/p Protonix IV - c/w Protonix and Carafate PO - Diet fully advanced - General surgery, Dr. Cardenas, on consultation; discussed and will continue to hold Xarelto for ~ 2 weeks from EGD Chronic COPD - No evidence of exacerbation - Chest CT 01/12: Negative limited CT examination of the chest. - c/w inhaled therapy as ordered Atrial fibrillation with RVR - Patient was tachycardic on admission - c/w Metoprolol for rate control - s/p Xarelto (re: acute GI bleed) HTN - BP well controlled currently - Chlorthalidone / Lisinopril / Amlodipine on hold for now - c/w metoprolol with hold parameters Alcoholic liver cirrhosis - Abdomen is benign on examination - AST / ALT improving; Ratio at 2:1 - CT abdomen / pelvis 01/12: There are cirrhotic features to the liver. This needs to be correlated clinically. Alcohol abuse - Advised cessation of alcohol consumption - c/w Thiamine, Folate, MVI - c/w [facility] Protocol Acute kidney injury - likely 2/2 pre-renal etiology - Cr continues to improve - c/w IV fluid hydration - Nephrology on consultation; appreciate their input Hyponatremia - likely 2/2 hypotonic hypovolemic etiology - s/p IV fluid hydration - Nephrology on consultation; appreciate their input s/p Metabolic acidosis - possibly 2/2 renal failure DVT prophylaxis - c/w TEDs/Sequentials Disposition: - Will continue to monitor for renal improvement - Will have PT evaluate - Anticipate DC within 24-48 hours VS,Fishbone, I+O VS, Fishbone, I+O Laboratory Tests 01/14/20 15:44 01/14/20 16:45 01/15/20 09:39 Vital Signs Date Time Temp Pulse Resp B/P (MAP) Pulse Ox O2 Delivery O2 Flow Rate FiO2 01/15/20 09:45 17 01/15/20 09:00 81 102/62 01/15/20 06:00 98.0 99 Room Air I&O- Last 24 Hours up to 6 AM 01/15/20 06:00 Intake Total 4100.2 ml Output Total 2550 ml Balance 1550.2 ml ONUR SOLITARIO MD Jan 15, 2020 11:15
[2020-01-15 14:00] VITALS: BP 104/58
[2020-01-15 14:16] LABS: CK-MB VALUE MASS 7.5 NG/ML (<3.6); MB/CK RELATIVE INDEX 2.76 (< OR =4); TROPONIN I 0.02 NG/ML (< 0.10)
--- NOTE | 2020-01-15 14:34 | ECGEPIP ---
[facility] Test Date: 2020-01-15 Pat Name: KATHIE FOFANA Department: Room: [place] [address] Gender: Male Pulper Tender: DEE DEE : 1955 Requested By: ONUR SOLITARIO Order Number: [id number] Reading MD: Annabel Lua Measurements Intervals [place] Rate: 92 P: NE: 0 QRS: 35 QRSD: 85 T: 43 QT: 359 QTc: 445 Interpretive Statements ATRIAL FIBRILLATION RATE SLOWER LOW QRS VOLTAGE NOW GENERALIZED ST & T-WAVE ABNORMALITY more MARKED throughout c/w 01/13/20 Electronically Signed on 01-15-2020 14:34:44 EDT by Annabel Lua
[2020-01-15] MEDS: FOLIC ACID 1 MG in NS 50 ML IV SCH (16:41)
--- NOTE | 2020-01-15 17:18 | IPNPDOC ---
Date Seen The patient was seen on 01/15/20. Progress Note SUBJECTIVE: Ed was seen and examined by the nephrology service this morning while lying in bed. When we entered the room for visit, he was sleeping. He reports resuming a normal diet, and is eating and drinking without any issues. He denies any nausea, vomiting, or abdominal pain. He is no longer receiving any IV fluid hydration as time. He denies any fever, chills, night sweats, chest pain, or shortness of breath either overnight or this morning. OBJECTIVE PHYSICAL EXAMINATION: VITAL SIGNS: Please see below. PHYSICAL EXAMINATION: VITAL SIGNS: Please see below. GENERAL APPEARANCE: Morbidly obese male lying in bed. No acute distress. Alert and oriented 3. HEENT: Normocephalic, atraumatic. Noninjected, anicteric sclerae. No conjunctival pallor. Moist mucous membranes. No pharyngeal erythema or exudate. Neck is supple with no thyromegaly, lymphadenopathy, or JVD. RESPIRATORY: Lungs are clear to auscultation bilaterally with no adventitious breath sounds appreciated. Symmetric chest expansion with adequate respiratory effort. Breathing room air. Speaking full sentences. CARDIOVASCULAR: Regular rate. +S1, S2. Fainter heart sounds likely due to habitus. No JVD. 2+ radial pulses bilaterally. ABDOMEN: Soft, obese. Nontender. Normoactive bowel sounds throughout. No guardi ng or rigidity appreciated. Difficult to appreciate for organomegaly due to habitus. EXTREMITIES: 1+ pitting edema of bilateral lower extremities, left greater than right. No clubbing or cyanosis appreciated. NEUROLOGICAL: Awake, alert and oriented 3. No focal neurologic deficits appreciated. Non-dysarthric speech. PSYCHIATRIC: Mood and affect appear appropriate LABORATORY DATA, IMAGING STUDIES, MICROBIOLOGY: Please see below. PROBLEMS: #Acute nonoliguric renal failure We do not know patient's baseline creatinine level, yet his renal function continues to improve and he is making a good amount of daily urine. IV fluid hydration has been stopped and he has resumed a regular diet. This was likely secondary to outpatient administration of thiazide diuretic and SALOMÓN inhibitor. #Hypovolemic hyponatremia This likely occurred as a result of dehydration from GI fluid losses over the past week. Serum sodium improved to 134 today. IV fluid hydration has been stopped and he is resumed a normal diet. #History of hypertension With the exception of metoprolol for atrial fibrillation RVR rate control, all of patient's home antihypertensive medications are on hold at this time due to his soft blood pressures. His pressures did increase slightly today. #Anemia likely due to upper GI bleed He underwent an EGD during this stay with placement of 2 clips in the stomach. Currently receiving both Carafate and Protonix. Hemoglobin improved significantly to 11 today. He did not require any blood transfusion. #Atrial fibrillation with rapid ventricular response. Patient was in atrial fibrillation with rapid ventricular response. Upon presentation the hospital. His heart rate is controlled today and he is currently receiving metoprolol. Due to the upper GI bleed. No anticoagulative medications are being administered. #History of liver cirrhosis Upon presentation, he had intravascular volume depletion due to low albumin. He responded well to IV fluid hydration and has resumed eating and drinking. IV fluid administration has been stopped. Hydration status is good and his renal function continues to improve. He endorses drinking a pint of vodka every other day for the 3 weeks preceding his presentation for this hospital stay. He is currently on folic acid, thiamine, and alcohol withdrawal precautions. Of note, he denies ever having needed to undergo a paracentesis previously. Thank you for involving the nephrology service in AIDS care. We will continue to follow along. Should questions arise from a renal standpoint, please contact us, thank you. VS, I&O, 24H, Fishbone Vital Signs/I&O Vital Signs Date Time Temp Pulse Resp B/P (MAP) Pulse Ox O2 Delivery O2 Flow Rate FiO2 01/15/20 14:00 97.8 105 19 104/58 (73) 98 Room Air I&O- Last 24 Hours up to 6 AM 01/15/20 06:00 Intake Total 4100.2 ml Output Total 2550 ml Balance 1550.2 ml Laboratory Data 24H LABS Laboratory Tests 2 01/15/20 09:39: Immature Granulocyte % (Auto) 0.4, Neutrophils (%) (Auto) 61.6, Lymphocytes (%) (Auto) 27.8, Monocytes (%) (Auto) 7.8H, Eosinophils (%) (Auto) 1.7, Basophils (%) (Auto) 0.7, Neutrophils # (Auto) 4.7, Lymphocytes # (Auto) 2.1, Monocytes # (Auto) 0.6, Eosinophils # (Auto) 0.1, Basophils # (Auto) 0.1, Nucleated Red Blood Cells % (auto) 0.0, Anion Gap 6L, Glomerular Filtration Rate 19.4L, Calcium Level 7.3L, Magnesium Level 1.9, Total Bilirubin 1.1H, Aspartate Amino Transf (AST/SGOT) 173H, Alanine Aminotransferase (ALT/SGPT) 117H, Alkaline Phosphatase 84, Total Protein 6.5#, Albumin 2.8L, Albumin/Globulin Ratio 0.8 01/15/20 13:37: Total Creatine Kinase 272, Creatine Kinase MB 7.5H, Creatine Kinase MB Relative Index 2.76, Troponin I 0.02 CBC/BMP Laboratory Tests 01/15/20 09:39 Microbiology Microbiology 01/13/20 Gastrointestinal Tract Panel (PCR) - Final, Complete 01/13/20 Blood Culture - Preliminary, Resulted No Growth after 48 hours. All Specime... 01/13/20 Blood Culture - Preliminary, Resulted No Growth after 48 hours. All Specime... GME ATTESTATION GME ATTESTATION My faculty preceptor for this patient encounter was physically present during the encounter and was fully available. All aspects of the patient interview, examination, medical decision making process, and medical care plan development were reviewed and approved by the faculty preceptor. The faculty preceptor is aware and concurs with the plan as stated in the body of this note and will attest to such by his/her cosignature. ATTENDING NOTE Acute non Oliguri VANDANA Liver cirrhosis Anemia sec to GI Bleed. s/p EGD and clipsx2 in stomach Hypovolemic hyponatremia Renal function improving. No need of IV fluid Keep SALOMÓN/Diuretics on hold. Na improving. SHANDRA WILSON D.O. Jan 15, 2020 17:18 ADAN PERALTA MD Jan 17, 2020 12:47
[2020-01-15 17:44] LABS: BASO % 0.5 % (0.0-1.0); EOS # 0.1 10^3/uL (0.0-0.5); HEMATOCRIT 31.7 % (42.0-52.0); HEMOGLOBIN 10.3 g/dl (13.5-17.5); LYMPH # 1.4 10^3/uL (1.5-5.0); LYMPH % 23.4 % (24.0-44.0); MEAN CORPUSCULAR HGB CONC 32.5 g/dl (32.0-36.5); MEAN CORPUSCULAR VOLUME 107.8 fl (80.0-96.0); MONO # 0.6 10^3/uL (0.0-0.8); MONO % 10.1 % (0.0-5.0); NEUTROPHILS # 3.9 10^3/uL (1.5-8.5); NEUTROPHILS % 63.3 % (36.0-66.0); PLATELET COUNT, AUTOMATED 109 10^3/uL (150-450); RED BLOOD COUNT 2.94 10^6/uL (4.30-6.10); WHITE BLOOD COUNT 6.1 10^3/uL (4.0-10.0)
[2020-01-15 18:13] LABS: CK-MB VALUE MASS 6.5 NG/ML (<3.6); CPK CREATINE PHOSPHOKINASE 256 U/L (39-308); MB/CK RELATIVE INDEX 2.54 (< OR =4); TROPONIN I < 0.02 NG/ML (< 0.10)
[2020-01-15 22:00] VITALS: BP 96/56
[2020-01-16] MEDS: ONDANSETRON 4MG/2ML VIAL IV SCH ×3 (05:43→17:08)
[2020-01-16] MEDS: SUCRALFATE SUSP 1GM/10ML UD PO SCH ×4 (05:44→21:42)
[2020-01-16] MEDS: oxyCODONE 5MG TAB PO PRN ×3 (05:45→21:44)
[2020-01-16 06:00] VITALS: BP_SYST 96; BP_SYST 99; BP_DIAS 59; BP_DIAS 60
[2020-01-16 06:45] LABS: BASO % 0.5 % (0.0-1.0); EOS # 0.1 10^3/uL (0.0-0.5); EOS % 1.8 % (0.0-3.0); HEMATOCRIT 32.7 % (42.0-52.0); HEMOGLOBIN 10.6 g/dl (13.5-17.5); LYMPH % 31.9 % (24.0-44.0); MEAN CORPUSCULAR HEMOGLOBIN 35.3 pg (27.0-33.0); MEAN CORPUSCULAR HGB CONC 32.4 g/dl (32.0-36.5); MONO # 0.6 10^3/uL (0.0-0.8); MONO % 9.8 % (0.0-5.0); NEUTROPHILS # 3.4 10^3/uL (1.5-8.5); NEUTROPHILS % 55.3 % (36.0-66.0); PLATELET COUNT, AUTOMATED 112 10^3/uL (150-450); WHITE BLOOD COUNT 6.1 10^3/uL (4.0-10.0)
[2020-01-16 07:09] LABS: ALBUMIN 2.7 GM/DL (3.2-5.2); BILIRUBIN,TOTAL 0.9 MG/DL (0.2-1.0); CALCIUM LEVEL 7.5 MG/DL (8.8-10.2); CREATININE FOR GFR 2.53 MG/DL (0.70-1.30); GLOMERULAR FILTRATION RATE 27.4 (>49); MAGNESIUM LEVEL 1.9 MG/DL (1.8-2.4); POTASSIUM SERUM 4.2 MEQ/L (3.5-5.1); TOTAL PROTEIN 6.1 GM/DL (6.4-8.2)
[2020-01-16] MEDS: METOPROLOL TART 25 MG TABLET PO SCH ×2 (07:15→21:00)
[2020-01-16] MEDS: THIAMINE 200MG/2ML VIAL (J3411 PER 100MG) IV SCH ×2 (09:10→21:45)
[2020-01-16] MEDS: GABAPENTIN 100 MG CAP PO SCH ×2 (09:10→21:42)
[2020-01-16] MEDS: PANTOPRAZOLE 40MG TAB (PROTONIX) PO SCH ×2 (09:10→21:42)
[2020-01-16] MEDS: MULTIVITAMINS/MINERALS THERAP 1 TAB PO SCH (09:10)
[2020-01-16 14:00] VITALS: BP 107/79
--- NOTE | 2020-01-16 15:14 | IPNPDOC ---
Text Note Date of Service The patient was seen on 01/16/20. NOTE SUBJECTIVE Mr. Johnson is a 64-year-old male with alcoholic liver cirrhosis. He also has atrial fibrillation for which he has been on chronic anticoagulation with Xarelto. Patient presented with fairly significant GI bleed. Patient was evaluated via upper endoscopy and found to have significant hemorrhagic gastritis; bleeding has been controlled with placement of a clip and treatment with proton pump inhibitor and he has not required transfusion. The patient complains of radicular symptoms due to disc disease. He states his pain is preventing him from participating with physical therapy. OBJECTIVE See vital signs below Physical exam: HENT: Neck is supple with no adenopathy or thyromegaly, he does not display scleral icterus or injection, oral mucosa is moist CV: Regular rate and rhythm with a normal S1 and S2 and no appreciable murmur or bruit. RESP: Clear to auscultation, no cough or wheezing. ABD: Soft, nontender, nondistended, morbid central obesity with a body mass index of 41.2 EXT: No peripheral edema, pedal and radial pulses are palpable, NEURO: Patient does exhibit some radicular pain, but does not have focal motor deficit. Review of laboratory data shows hemoglobin that has stabilized remarkably at 10.6. Platelets are 112. Creatinine has improved from 3.41, down to 2.53. Elevated liver enzymes are improved; AST, ALT of 173 and 117 respectively is improved to 121 and 95 respectively. ASSESSMENT/PLAN: 1. Upper GI bleed--use of anticoagulant contributory; on endoscopy patient is found to have acute gastritis with hemorrhage. This appears to be due to alcohol consumption; patient has had considerable consumption of vodka over the past few days. He is to abstain from alcohol where possible. He is not to resume his Xarelto for at least 2 weeks. 2. Acute kidney injury--creatinine is improving and patient is hemodynamically stable. The injury is felt to have resulted from hypotension related to hypovolemia causing acute tubular necrosis. He is improving with hydration. We appreciate the assistance of the nephrology service. 3. Chronic back pain--patient reports degenerative disc disease. He also reports radicular symptoms. He states he is in the process of arranging to have surgery. Apparently this was to take place in [place]. He has not had full formal consultation as yet. The patient is a suboptimal surgical candidate for multiple reasons--COPD, obstructive sleep apnea, morbid obesity, alcoholic cirrhosis with noncompliance, bleeding episode with anticoagulation, chronic atrial fibrillation. If he remains hemodynamically stable with no further bleeding episodes patient could be discharged to home tomorrow, provided he is sufficiently ambulatory. VS,Fishbone, I+O VS, Fishbone, I+O Laboratory Tests 01/15/20 17:19 01/16/20 05:56 Vital Signs Date Time Temp Pulse Resp B/P (MAP) Pulse Ox O2 Delivery O2 Flow Rate FiO2 01/16/20 14:58 18 01/16/20 07:15 96 102/62 01/16/20 06:15 95 Room Air 01/16/20 06:00 96.6 I&O- Last 24 Hours up to 6 AM 01/16/20 06:00 Intake Total 660 ml Output Total 4035 ml Balance -3375 ml YAKELIN RONDON MD Jan 16, 2020 15:14
[2020-01-16] MEDS: FOLIC ACID 1 MG in NS 50 ML IV SCH (17:08)
[2020-01-16 21:45] VITALS: BP 110/70
[2020-01-16 22:00] VITALS: BP 110/70
[2020-01-17] MEDS: ONDANSETRON 4MG/2ML VIAL IV SCH ×4 (05:59→17:42)
[2020-01-17 06:00] VITALS: BP 112/62
[2020-01-17 06:41] LABS: BASO % 0.5 % (0.0-1.0); EOS # 0.2 10^3/uL (0.0-0.5); EOS % 2.3 % (0.0-3.0); HEMOGLOBIN 10.3 g/dl (13.5-17.5); LYMPH % 30.6 % (24.0-44.0); MEAN CORPUSCULAR HEMOGLOBIN 35.5 pg (27.0-33.0); MEAN CORPUSCULAR HGB CONC 32.2 g/dl (32.0-36.5); MEAN CORPUSCULAR VOLUME 110.3 fl (80.0-96.0); MONO # 0.6 10^3/uL (0.0-0.8); MONO % 9.6 % (0.0-5.0); NEUTROPHILS # 3.7 10^3/uL (1.5-8.5); NEUTROPHILS % 56.2 % (36.0-66.0); WHITE BLOOD COUNT 6.6 10^3/uL (4.0-10.0)
[2020-01-17 07:12] LABS: ALBUMIN 2.6 GM/DL (3.2-5.2); BILIRUBIN,TOTAL 0.8 MG/DL (0.2-1.0); CALCIUM LEVEL 7.6 MG/DL (8.8-10.2); CREATININE FOR GFR 1.99 MG/DL (0.70-1.30); GLOMERULAR FILTRATION RATE 36.1 (>49); MAGNESIUM LEVEL 1.3 MG/DL (1.8-2.4); POTASSIUM SERUM 4.2 MEQ/L (3.5-5.1)
[2020-01-17 07:14] LABS: PLATELET COUNT, AUTOMATED 83 10^3/uL (150-450)
--- NOTE | 2020-01-17 08:06 | IPN ---
DATE OF VISIT: 01/16/2020 Mr. Johnson is seen this morning on his bedside. He is feeling well and denies any new complaints. He has no dyspnea, chest pain, nausea or vomiting. He has chronic back pain and reports that at home he drinks alcohol mostly because of the back pain and not feeling good. He has history of heavy smoking for about 50 years with chronic obstructive pulmonary disease (COPD) and also has obstructive sleep apnea. He was admitted with acute renal failure and kidney function has been improving. He also had hyponatremia, which has improved from 124 on admission up to 138 today. He is currently not receiving any IV fluids. On physical exam, patient is awake and alert and without any acute distress. Temperature 96.6 degrees Fahrenheit, heart rate 96 per minute and respiratory rate 18 per minute. Blood pressure 102/62 mmHg and oxygen saturation 95% on room air. His head is atraumatic. Neck supple and jugular venous distention (JVD) mildly elevated. Heart sounds are somewhat tachycardiac and lungs sound clear to auscultation. Abdomen is obese, soft and nontender. Liver is mildly enlarged about 5 cm below costal margin. Bowel sounds are normal. Extremities have no cyanosis or clubbing. Neurologically, he is awake, alert and oriented times three. Today's labs show sodium 138, potassium 4.2, CO2 27, BUN 40 and creatinine 2.53. Glucose 101 and calcium 7.5. Total protein 6.1 and albumin 2.7. WBC count 6.1, hemoglobin 10.6 and hematocrit 32.7. Platelets 112. PROBLEMS: 1. Acute renal failure superimposed on chronic kidney disease. Kidney function is improving nicely and patient has adequate oral intake. He does not need IV fluid anymore. Renal profile will be checked again tomorrow morning. His electrolytes are within normal range. 2. Hyponatremia. His hyponatremia has corrected completely. Does not need any IV fluid at this point. We will continue to monitor his electrolytes and kidney function. 3. Chronic back pain probably related to degenerative disc disease and chronic arthritis. At this point, I would recommend to avoid any nonsteroidal anti-inflammatory drug (NSAID) due to significant kidney disease. He should probably be evaluated by pain clinic for chronic back pain.
[2020-01-17] MEDS: SUCRALFATE SUSP 1GM/10ML UD PO SCH ×4 (08:07→20:50)
[2020-01-17] MEDS: oxyCODONE 5MG TAB PO PRN ×3 (08:07→20:52)
[2020-01-17] MEDS: THIAMINE 200MG/2ML VIAL (J3411 PER 100MG) IV SCH ×2 (08:08→20:53)
[2020-01-17] MEDS: PANTOPRAZOLE 40MG TAB (PROTONIX) PO SCH ×2 (08:09→20:50)
[2020-01-17] MEDS: METOPROLOL TART 25 MG TABLET PO SCH ×2 (08:14→20:51)
[2020-01-17] MEDS: GABAPENTIN 100 MG CAP PO SCH ×2 (08:14→20:50)
[2020-01-17] MEDS: MULTIVITAMINS/MINERALS THERAP 1 TAB PO SCH (08:14)
[2020-01-17 09:00] VITALS: BP 128/78
[2020-01-17] MEDS: MAG SULF 1GM/100ML (MAG RUN) 1 GM in IV 1 EA IV SCH ×3 (09:12→12:14)
[2020-01-17 10:39] LABS: URIC ACID 9.7 MG/DL (3.5-7.2)
[2020-01-17] MEDS ORDERED: predniSONE 20 MG TAB PO ONE (11:00)
--- NOTE | 2020-01-17 13:17 | IPN ---
DATE OF VISIT: 01/17/2020 Mr. Johnson is seen this morning on his bedside. He has a complaint of pain in his right knee. Denies any dyspnea, chest pain, nausea or vomiting. On physical exam, temperature 97.7 degrees Fahrenheit, heart rate 80 per minute and respiratory rate 18 per minute. Blood pressure 130/80 mmHg and oxygen saturation 93% on room air. His head is atraumatic. Neck supple and jugular venous distention (JVD) mildly elevated. Heart sounds are regular and lungs clear to auscultation. Abdomen soft and nontender and bowel sounds are present. Extremities without any cyanosis or clubbing. Right knee is swollen and mildly warm and tender. Lower extremities have no edema. Neurologically, he is awake, alert and oriented times three. Today's labs show WBC count 6.6, hemoglobin 10.3 and hematocrit 32.0. Platelets are 83,000. Sodium 139, potassium 4.2, CO2 33, BUN 29 and creatinine 1.99. Calcium 7.6 and magnesium 1.3. He is currently receiving intravenous magnesium. I ordered a STAT uric acid level and it came back 9.7. PROBLEMS: 1. Acute renal failure. Kidney function is improving nicely and his oral intake is adequate. I do not feel that any further IV fluid is indicated at this point. 2. Hypomagnesemia. This is nutritional and patient is already receiving intravenous magnesium. I feel that he should be placed on chronic oral magnesium supplement. 3. Right knee pain. Most likely this is acute and chronic gout. He has some effusion, tenderness and increased temperature. I am going to treat him with prednisone 20 mg twice a day and consider to start with uric acid lowering therapy at a later time. 4. Anemia. His anemia is stable and does not need any intervention at this point. [facility]
[2020-01-17 14:00] VITALS: BP 125/61
[2020-01-17] MEDS: FOLIC ACID 1 MG in NS 50 ML IV SCH (15:35)
[2020-01-17] MEDS ORDERED: oxyCODONE 5MG TAB PO ONE (16:00)
--- NOTE | 2020-01-17 17:28 | IPNPDOC ---
Text Note Date of Service The patient was seen on 01/17/20. NOTE SUBJECTIVE Mr. Johnson is a 64-year-old male with alcoholic liver cirrhosis. He also has atrial fibrillation for which he has been on chronic anticoagulation with Xarelto. The patient is status post intervention via endoscopy for GI bleed due to hemorrhagic gastritis. OBJECTIVE See vital signs below Physical exam: GENERAL: Awake, conversant HENT: Neck is supple with no adenopathy or thyromegaly, he does not display scleral icterus or injection, oral mucosa is moist CV: Regular rate and rhythm with a normal S1 and S2 and no appreciable murmur or bruit. RESP: Clear to auscultation, no cough or wheezing. ABD: Soft, nontender, nondistended, morbid central obesity with a body mass index of 41.2 EXT: No peripheral edema, pedal and radial pulses are palpable, some right knee swelling with pain NEURO: Patient does exhibit some radicular pain, but does not have focal motor deficit. Review of laboratory data shows hemoglobin that has stabilized remarkably at 10.3. Platelets are 83. Creatinine has improved from 2.53, down to 1.99. Elevated liver enzymes are improved; AST, ALT of 121 and 95 respectively is improved to 84 and 69 respectively. ASSESSMENT/PLAN: 1. Upper GI bleed--use of anticoagulant contributory; on endoscopy patient is found to have acute gastritis with hemorrhage. This appears to be due to alcohol consumption/alcoholic liver disease; patient has had considerable consumption of vodka over the past few days. He is to abstain from alcohol where possible. He is not to resume his Xarelto for at least 2 weeks. 2. Acute kidney injury--creatinine is improving and patient is hemodynamically stable. The injury is felt to have resulted from hypotension related to hypovolemia causing acute tubular necrosis. He has improved with hydration. We appreciate the assistance of the nephrology service. 3. Chronic back pain--patient reports degenerative disc disease. He also reports radicular symptoms. He states he is in the process of arranging to have surgery. Apparently this was to take place in [place]. He has not had full formal consultation as yet. The patient is a suboptimal surgical candidate for multiple reasons--COPD, obstructive sleep apnea, morbid obesity, alcoholic cirrhosis with noncompliance, bleeding episode with anticoagulation, chronic atrial fibrillation. Patient is being managed with oxycodone. 4. Right knee pain is being attributed to gout. Unfortunately agents such as indomethacin or prednisone would increase this patient's risk of recurrent GI bleed at this time. We'll make use of alternate pain meds. Will check uric acid level and perhaps start allopurinol. If he remains hemodynamically stable with no further bleeding episodes patient could be discharged to home tomorrow. Physical therapy reports that he has ambulated well, up to 300 feet with a walker. VS,Carlitosbone, I+O VS, Fishbone, I+O Laboratory Tests 01/17/20 06:13 Vital Signs Date Time Temp Pulse Resp B/P (MAP) Pulse Ox O2 Delivery O2 Flow Rate FiO2 01/17/20 16:23 16 01/17/20 14:00 98.6 85 125/61 (82) 94 Room Air I&O- Last 24 Hours up to 6 AM 01/17/20 06:00 Intake Total 1970 ml Output Total 3650 ml Balance -1680 ml YAKELIN RONDON MD Jan 17, 2020 17:28
[2020-01-17] MEDS: predniSONE 20 MG TAB PO SCH (20:51)
[2020-01-17 21:00] VITALS: BP 134/75
[2020-01-17 22:00] VITALS: BP 134/75
[2020-01-18] MEDS: ONDANSETRON 4MG/2ML VIAL IV SCH ×4 (05:00→17:54)
[2020-01-18] MEDS: oxyCODONE 5MG TAB PO PRN ×2 (05:05→21:28)
[2020-01-18 06:00] VITALS: BP 130/83
[2020-01-18 06:38] LABS: BASO % 0.1 % (0.0-1.0); HEMOGLOBIN 10.3 g/dl (13.5-17.5); LYMPH # 0.7 10^3/uL (1.5-5.0); LYMPH % 9.4 % (24.0-44.0); MEAN CORPUSCULAR HEMOGLOBIN 34.9 pg (27.0-33.0); MEAN CORPUSCULAR HGB CONC 32.2 g/dl (32.0-36.5); MEAN CORPUSCULAR VOLUME 108.5 fl (80.0-96.0); MONO # 0.4 10^3/uL (0.0-0.8); MONO % 5.4 % (0.0-5.0); NEUTROPHILS # 6.5 10^3/uL (1.5-8.5); NEUTROPHILS % 84.2 % (36.0-66.0); RED BLOOD COUNT 2.95 10^6/uL (4.30-6.10); WHITE BLOOD COUNT 7.7 10^3/uL (4.0-10.0)
[2020-01-18 06:43] LABS: PLATELET COUNT, AUTOMATED 85 10^3/uL (150-450)
[2020-01-18 07:16] LABS: ALBUMIN 2.6 GM/DL (3.2-5.2); BILIRUBIN,TOTAL 0.6 MG/DL (0.2-1.0); CALCIUM LEVEL 8.3 MG/DL (8.8-10.2); CREATININE FOR GFR 1.63 MG/DL (0.70-1.30); GLOMERULAR FILTRATION RATE 45.4 (>49); MAGNESIUM LEVEL 1.9 MG/DL (1.8-2.4); POTASSIUM SERUM 4.6 MEQ/L (3.5-5.1)
[2020-01-18 08:38] LABS: URIC ACID 8.4 MG/DL (3.5-7.2)
[2020-01-18] MEDS: GABAPENTIN 100 MG CAP PO SCH ×2 (08:53→21:27)
[2020-01-18] MEDS: MULTIVITAMINS/MINERALS THERAP 1 TAB PO SCH (08:53)
[2020-01-18] MEDS: THIAMINE 200MG/2ML VIAL (J3411 PER 100MG) IV SCH ×2 (08:53→21:26)
[2020-01-18] MEDS: predniSONE 20 MG TAB PO SCH ×2 (08:53→21:27)
[2020-01-18] MEDS: PANTOPRAZOLE 40MG TAB (PROTONIX) PO SCH ×2 (08:53→21:27)
[2020-01-18] MEDS: SUCRALFATE SUSP 1GM/10ML UD PO SCH ×4 (08:53→21:26)
[2020-01-18] MEDS: METOPROLOL TART 25 MG TABLET PO SCH ×2 (08:54→21:27)
[2020-01-18] MEDS: allopurinoL 100 MG TAB PO SCH (09:45)
[2020-01-18] MEDS: MAGNESIUM GLUCONATE 500 MG TAB PO SCH ×2 (10:58→21:26)
[2020-01-18] MEDS: FOLIC ACID 1 MG TAB PO SCH (10:59)
[2020-01-18 14:00] VITALS: BP 129/83
--- NOTE | 2020-01-18 14:37 | IPNPDOC ---
Text Note Date of Service The patient was seen on 01/18/20. NOTE SUBJECTIVE Mr. Johnson is a 64-year-old male with alcoholic liver cirrhosis. He also has atrial fibrillation for which he has been on chronic anticoagulation with Xarelto. The patient is status post intervention via endoscopy for GI bleed due to hemorrhagic gastritis. Patient has developed gout flare with pain and swelling to his right knee. He has been placed on prednisone. OBJECTIVE See vital signs below Physical exam: GENERAL: Awake, conversant HENT: Neck is supple with no adenopathy or thyromegaly, he does not display scleral icterus or injection, oral mucosa is moist CV: Regular rate and rhythm with a normal S1 and S2 and no appreciable murmur or bruit. RESP: Clear to auscultation, no cough or wheezing. ABD: Soft, nontender, nondistended, morbid central obesity with a body mass index of 41.2 EXT: No peripheral edema, pedal and radial pulses are palpable, some right knee swelling with pain NEURO: Patient does exhibit some radicular pain, but does not have focal motor deficit. SKIN: No jaundice Review of laboratory data shows hemoglobin that has stabilized remarkably at 10.3. Platelets are 85. Creatinine has improved from 1.99, down to 1.63. Uric acid is found to be elevated at 9.8. ASSESSMENT/PLAN: 1. Upper GI bleed--use of anticoagulant contributory; on endoscopy patient is found to have acute gastritis with hemorrhage. This appears to be due to alcohol consumption/alcoholic liver disease--manifestations have included elevated liver enzymes with acute alcoholic hepatitis, relative thrombocytopenia, coagulopathy. Patient has had considerable consumption of vodka over the past few days prior to admission. He is to abstain from alcohol where possible. He is not to resume his Xarelto for at least 2 weeks. 2. Acute kidney injury--creatinine is improving and patient is hemodynamically stable. The injury is felt to have resulted from hypotension related to hypovolemia causing acute tubular necrosis. He has improved with hydration. We appreciate the assistance of the nephrology service. He is not felt to have hepatorenal syndrome. 3. Chronic back pain--patient reports degenerative disc disease. He also reports radicular symptoms. He states he is in the process of arranging to have surgery. Apparently this was to take place in [place]. He has not had full formal consultation as yet. The patient is a suboptimal surgical candidate for multiple reasons--COPD, obstructive sleep apnea, morbid obesity, alcoholic cirrhosis with noncompliance, bleeding episode with anticoagulation, chronic atrial fibrillation. Patient is being managed with oxycodone. 4. Right knee pain is being attributed to gout. Prednisone could increase this patient's risk of recurrent GI bleed at this time. Will monitor closely, have started allopurinol. 5. Chronic atrial fibrillation--again, Xarelto being held for 2 weeks. Heart rate is controlled. VS,Fishbone, I+O VS, Fishbone, I+O Laboratory Tests 01/18/20 05:36 Vital Signs Date Time Temp Pulse Resp B/P (MAP) Pulse Ox O2 Delivery O2 Flow Rate FiO2 01/18/20 08:54 82 132/80 01/18/20 06:00 97.9 20 95 Room Air I&O- Last 24 Hours up to 6 AM 01/18/20 05:59 Intake Total 2330 ml Output Total 2720 ml Balance -390 ml YAKELIN RONDON MD Jan 18, 2020 14:37
--- NOTE | 2020-01-18 14:38 | IPN ---
DATE OF VISIT: 01/18/2020 Mr. Johnson is seen this morning on his bedside. He is feeling better and reports that his right knee pain is slightly better. However, when he gets up and walks then it hurts a lot. He is being treated for acute gout flare with prednisone. Patient presented with gastrointestinal (GI) bleed and was noticed to have gastritis on endoscopy. So, we are avoiding any NSAID. Patient denies any nausea, vomiting, dyspnea or chest pain. On physical exam, temperature 97.9 degrees Fahrenheit, heart rate 82 per minute and respiratory rate 20 per minute. Blood pressure 132/80 mmHg and oxygen saturation 95% on room air. Head is atraumatic. Neck supple and without jugular venous distention (JVD) or thyroid enlargement. Heart sounds are irregular in rhythm. Lungs clear to auscultation. Abdomen soft and nontender and bowel sounds are normal. Extremities without any cyanosis or clubbing. Right knee tenderness and warmth is slightly better today. He still has a slight knee effusion. Neurologically, he is awake, alert and oriented times three. Today's labs show WBC count 7.7, hemoglobin 10.3 and hematocrit 32.0. Platelets are 85,000. Sodium 135, potassium 4.6, CO2 35, BUN 21 and creatinine 1.63. Glucose 143 and uric acid is 8.4. Magnesium level is 1.9. PROBLEMS: 1. Acute renal failure. Kidney function is improving nicely and his oral intake is adequate. I do not feel that he needs any further IV fluid. 2. Gout in right knee. Patient has acute gout in his right knee and is currently on prednisone 20 mg twice a day. I am also starting him on allopurinol 100 mg daily in anticipation for discharge over next 24-48 hours. His prednisone can be stopped after 3 days and he should continue with allopurinol as an outpatient. 3. Muscle cramps and hypomagnesemia. Patient reports muscle cramps at night particularly in his arms. I am starting him on magnesium gluconate 500 mg twice a day to prevent hypomagnesemia. 4. Acute gastritis with GI bleed. His anticoagulation is currently on hold. His GI bleed has stopped and hematocrit is currently stable. Deferred to hospitalist service for resuming his anticoagulation when appropriate. DISPOSITION: I have feel that patient should not be discharged at least today due to acute gout in his right knee. He has difficulty ambulating and is currently on prednisone. We will also need to watch him for GI bleed while he is on prednisone.
[2020-01-18 22:00] VITALS: BP 131/82
[2020-01-19] MEDS: ONDANSETRON 4MG/2ML VIAL IV SCH ×3 (05:35→11:51)
[2020-01-19 05:44] LABS: BASO % 0.1 % (0.0-1.0); HEMATOCRIT 31.2 % (42.0-52.0); HEMOGLOBIN 10.1 g/dl (13.5-17.5); LYMPH % 11.5 % (24.0-44.0); MEAN CORPUSCULAR HEMOGLOBIN 34.9 pg (27.0-33.0); MEAN CORPUSCULAR HGB CONC 32.4 g/dl (32.0-36.5); MONO # 0.5 10^3/uL (0.0-0.8); MONO % 6.2 % (0.0-5.0); NEUTROPHILS # 6.8 10^3/uL (1.5-8.5); NEUTROPHILS % 80.8 % (36.0-66.0); PLATELET COUNT, AUTOMATED 92 10^3/uL (150-450); RED BLOOD COUNT 2.89 10^6/uL (4.30-6.10); WHITE BLOOD COUNT 8.4 10^3/uL (4.0-10.0)
[2020-01-19 06:00] VITALS: BP 155/83
[2020-01-19 06:10] LABS: ALBUMIN 2.4 GM/DL (3.2-5.2); BILIRUBIN,TOTAL 0.3 MG/DL (0.2-1.0); CALCIUM LEVEL 8.6 MG/DL (8.8-10.2); CREATININE FOR GFR 1.57 MG/DL (0.70-1.30); GLOMERULAR FILTRATION RATE 47.4 (>49); MAGNESIUM LEVEL 1.4 MG/DL (1.8-2.4); POTASSIUM SERUM 4.9 MEQ/L (3.5-5.1); TOTAL PROTEIN 5.7 GM/DL (6.4-8.2)
[2020-01-19] MEDS: MAGNESIUM GLUCONATE 500 MG TAB PO SCH (08:49)
[2020-01-19] MEDS: GABAPENTIN 100 MG CAP PO SCH (08:49)
[2020-01-19] MEDS: SUCRALFATE SUSP 1GM/10ML UD PO SCH ×2 (08:49→11:51)
[2020-01-19] MEDS: PANTOPRAZOLE 40MG TAB (PROTONIX) PO SCH (08:50)
[2020-01-19] MEDS: allopurinoL 100 MG TAB PO SCH (08:50)
[2020-01-19] MEDS: FOLIC ACID 1 MG TAB PO SCH (08:50)
[2020-01-19] MEDS: MULTIVITAMINS/MINERALS THERAP 1 TAB PO SCH (08:50)
[2020-01-19] MEDS: METOPROLOL TART 25 MG TABLET PO SCH (08:50)
[2020-01-19] MEDS: predniSONE 20 MG TAB PO SCH (08:50)
[2020-01-19] MEDS: THIAMINE 200MG/2ML VIAL (J3411 PER 100MG) IV SCH (08:51)
[2020-01-19] MEDS: oxyCODONE 5MG TAB PO PRN (08:58)
[2020-01-19] MEDS ORDERED: MAGN50TA PO (11:50)
[2020-01-19] MEDS ORDERED: ALLO10TA PO (11:50)
[2020-01-19] MEDS ORDERED: PANT40TA3 PO ×2 (11:50→16:27)
[2020-01-19] MEDS ORDERED: SUCR1ORA PO (11:59)
[2020-01-19] MEDS ORDERED: amLODIPine 10 MG TAB PO ONE (12:00)
[2020-01-19 12:32] VITALS: BP 141/97
--- NOTE | 2020-01-19 16:22 | DS.PDOC ---
Discharge Summary General Date of Admission Jan 13, 2020 at 13:32 Date of Discharge 01/19/20 Attending Physician: Vani De Anda MD Discharge Summary HISTORY OF PRESENT ILLNESS: This is a 64-year-old alcoholic with liver cirrhosis, chronic atrial fibrillation, on Xarelto, who was in his usual state of health until Saturday, when he was driving back from getting blood tests done from his doctor's office with his niece when he had two to three episodes of black vomitus and black, tarry stools with complaints of dizziness and lightheadedness. He was drinking pints of vodka, because he was unable to get pain medications for his back for the past few days. He laid down in bed and put the fan on and had not been eating since Saturday. Patient on Saturday had some bilious emesis and had jet- black voluminous black, tarry stools twice Saturday night and once again Saturday morning, this time accompanied with shortness of breath with some epigastric discomfort without chest pain, pressure, or tightness, again with lightheadedness and dizziness but able to ambulate without falling. Patient says that he had had a prior colonoscopy with two polyps several years ago. No history of gastric varices or esophageal varices but does have a history of liver cirrhosis from alcohol use. Patient felt hot and cold without fever or chills last night. No prior episodes of this. He had been increasingly short of breath for several days and thought it was his chronic obstructive pulmonary disease (COPD). He does still smoke about one and one-half packs a day. Recently has been smoking just a few cigarettes. Patient otherwise denies any fever, chills, bright red blood per rectum, dysuria, urgency, frequency, polyuria, polydipsia, polyphagia, sore throat, changes in vision. He complains of some insomnia, unable to sleep for the last 4 days due to weakness and ongoing gastrointestinal (GI) bleed. Patient denies any nonsteroid anti-inflammatory use and says that he was using oxycodone 5 mg tablets, three tablets during the day, but ran out of prescription, which is why he had been drinking vodka in pints at home. Patient was admitted for further evaluation of GI bleed HOSPITAL COURSE: The patient underwent endoscopy early into his admission for GI bleed, no acute hemorrhages found; however there was some gastritis believed to be the cause for potential hemorrhage. The patient was started on pantoprazole twice a daily, sucralfate. Xarelto was stopped and was suggested to be stopped for a total of 2 weeks. His acute kidney injury gradually improved with IV fluids and cessation of nephrotoxic medications. The patient had a gout flare with pain and swelling to his right knee developed during his hospitalization, this was treated with prednisone and allopurinol. Nephrology was consult to follow the patient during his hospital stay and will be following up with him after discharge as well. He had no episodes of hematemesis or rectal bleeding during the duration of his [facility] stay after the intervention. On 01/19/2020 the patient was discharged home in improved condition with instructions to follow-up with both his primary care provider and nephrology. He is instructed to not resume Xarelto until after 2 weeks' time. He is also instructed to contact medical professional or come to the ER immediately if he should see any more rectal bleeding, hematemesis either on or off his Xarelto in the future. Multiple medications were held due to his acute kidney injury and he is not to resume those medications until cleared by either nephrology or his primary care provider. The patient denied chest pain, shortness of breath, nausea, vomiting, fevers or chills on discharge is afternoon. PAST MEDICAL HISTORY: 1. Chronic atrial fibrillation. 2. Alcoholic liver cirrhosis. 3. Hypertension. 4. Chronic back pain. 5. Insomnia. 6. COPD. 7. Obstructive sleep apnea, not compliant. 8. Obesity, body mass index (BMI) of 39.3. 9. Active smoker. 10. Hypertension. PAST SURGICAL HISTORY: 1. Bilateral knee replacement times three. 2. Both hips replaced. SOCIAL HISTORY: Drinks a pint every day of vodka since his teenage years. Smokes one and one-half packs per day of cigarettes since the age of 16. No recreational drug use. Previous worked at [employer]. 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 No healthcare proxy. Full code. FAMILY HISTORY: Father at age 94 with cerebrovascular accident (CVA). No autopsy was performed. Mother at age 93 with coronary artery disease (CAD), myocardial infarction (RI). He has one brother he does not speak to. ALLERGIES: Please see below PHYSICAL EXAMINATION: VITAL SIGNS: Please see below GENERAL: AAOx 3, sitting up at the side of bed. Pleasant HENT: Neck is supple with no adenopathy or thyromegaly, he does not display scleral icterus or injection, oral mucosa is moist CV: Regular rate and rhythm with a normal S1 and S2 and no appreciable murmur or bruit. RESP: Clear to auscultation, no cough or wheezing. ABD: Soft, nontender, nondistended, obese EXT: No peripheral edema, pedal and radial pulses are palpable, no right knee swelling this AM NEURO: Patient does exhibit some radicular pain, but does not have focal motor deficit. SKIN: No jaundice LABORATORY: Please see below IMAGING: Endoscopy: - Acute gastritis with hemorrhage. Clip (MR conditional) was placed. ASSESSMENT: 64 y/o M admitted for treatment of GI bleed 2/2 to acute hemorrhagic gastritis discharging home today. PLAN: 1. Upper GI bleed 2/2 to acute hemorrhagic gastritis 2/2 to alcohol consumption/alcoholic liver disease (manifestations have included elevated liver enzymes with acute alcoholic hepatitis, relative thrombocytopenia, coagulopathy) -No further bleeding since intervention, cessation of xarelto -PPI BID, sucralfate should be continued after discharge -He is to abstain from alcohol if possible -He is not to resume his Xarelto for at least 2 weeks and to report any new s/s of bleeding immediately. 2. Acute nonoliguric renal failure likely multifactorial 2/2 to use of SALOMÓN inhibitors and thiazide diuretic at home. -Continue to hold nephrotoxic medications -Cr continues to improve slowly -Encouraging PO intake of fluids regularly -F/u with nephrology service after discharge 3. History of liver cirrhosis and intravascular volume depletion because of hypoalbuminemia, alcohol abuse. -BP stable. -AST/ALT improved -Alcohol cessation encouraged -F/u with PCP closely 4. Gout flare of right knee -Improved s/p prednisone, allopurinol -Will d/c with allopurinol -Avoid foods listed, given to patient -F/u with PCP 5. Chronic back pain 2/2 degenerative disc disease -Stable. -Resume home medications 6. COPD -Stable 7. DEYSI. -F/u with PCP -Encouraged wt loss 8. Chronic atrial fibrillation -Currently controlled. -Holding xarelto for 2 weeks after discharge (date given to patient to resume) -Monitor for s/s of bleeding. DISPOSITION: Discharged home in improved condition with f/u with both PCP and nephrology scheduled. TIME SPENT ON DISCHARGE: Greater than 30 minutes. Vital Signs/I&Os Vital Signs Date Time Temp Pulse Resp B/P (MAP) Pulse Ox O2 Delivery O2 Flow Rate FiO2 01/19/20 12:32 95 141/97 01/19/20 09:28 18 Room Air 01/19/20 06:00 98.3 97 I&O- Last 24 Hours up to 6 AM 01/19/20 06:00 Intake Total 2655 ml Output Total 1850 ml Balance 805 ml Laboratory Data Labs 24H Laboratory Tests 2 01/19/20 05:30: Immature Granulocyte % (Auto) 1.4, Neutrophils (%) (Auto) 80.8H, Lymphocytes (%) (Auto) 11.5L, Monocytes (%) (Auto) 6.2H, Eosinophils (%) (Auto) 0.0, Basophils (%) (Auto) 0.1, Neutrophils # (Auto) 6.8, Lymphocytes # (Auto) 1.0L, Monocytes # (Auto) 0.5, Eosinophils # (Auto) 0.0, Basophils # (Auto) 0.0, Nucleated Red Blood Cells % (auto) 0.0, Immature Platelet Fraction 5.3, Anion Gap 4L, Glomerular Filtration Rate 47.4L, Calcium Level 8.6L, Magnesium Level 1.4L, Total Bilirubin 0.3, Aspartate Amino Transf (AST/SGOT) 48H, Alanine Aminotransferase (ALT/SGPT) 46, Alkaline Phosphatase 54, Total Protein 5.7L, Albumin 2.4L, Albumin/Globulin Ratio 0.7 CBC/BMP Laboratory Tests 01/19/20 05:30 Microbiology Microbiology 01/13/20 Gastrointestinal Tract Panel (PCR) - Final, Complete 01/13/20 Blood Culture - Final, Complete NO GROWTH AFTER 5 DAYS 01/13/20 Blood Culture - Final, Complete NO GROWTH AFTER 5 DAYS Discharge Medications Scheduled Allopurinol (Allopurinol) 100 Mg Tablet, 100 MG PO DAILY Amlodipine Besylate (Amlodipine Besylate) 10 Mg Tablet, 10 MG PO DAILY, (Reported) Magnesium Gluconate (Mag-G) 27 Mg Tablet, 500 MG PO BID Metoprolol Tartrate (Metoprolol Tartrate) 25 Mg Tablet, 25 MG PO BID, (Reported) Multivit-Min/FA/Lycopen/Lutein (Centrum Silver Tablet) 1 Each Tablet, 1 TAB PO DAILY, (Reported) Pantoprazole Sodium (Pantoprazole Sodium) 40 Mg Tablet.dr, 40 MG PO BID Sucralfate (Sucralfate) 1 Gm/10 Ml Oral.susp, 1 GM PO ACHS Scheduled PRN Hydroxyzine HCl (Hydroxyzine HCl) 50 Mg Tablet, 50 MG PO QHS PRN for SLEEP, (Reported) Oxycodone HCl (Oxycodone HCl) 5 Mg Tablet, 5 MG PO Q8H PRN for pain, (Reported) Trazodone HCl (Trazodone HCl) 50 Mg Tablet, 75 MG PO QHS PRN for SLEEP, (R eported) Allergies Coded Allergies: No Known Allergies (Unverified , 04/13/19) Vani De Anda MD Jan 19, 2020 16:22
--- NOTE | 2020-01-19 19:02 | IPN ---
DATE: 01/19/2020 Mr. Johnson is seen this morning on his bedside. He is feeling much better and reports that his right knee pain has improved. He denies any dyspnea, chest pain, nausea or vomiting. He did not have any further black stools. His anticoagulation has been on hold due to GI bleed. PHYSICAL EXAMINATION: Temperature 98.3 degrees Fahrenheit, heart 72 per minute and respiratory rate 18 per minute. Blood pressure 155/83 mmHg and oxygen saturation 97% on room air. Head is atraumatic. Neck: Supple and without JVD or thyroid enlargement. Heart: Sounds are irregular in rhythm. Lungs: Clear to auscultation. Abdomen: Soft and nontender and bowel sounds are normal. Extremities: Without any cyanosis or clubbing. Right knee tenderness has improved. Neurologically, he is awake, alert and oriented x3. Today's labs show WBC count 8.4, hemoglobin 10.1 and hematocrit 31.2. Sodium 134, potassium 4.9, CO2 35, BUN 22 and creatinine 1.57. Calcium 8.6 and magnesium 1.4. PROBLEMS: 1. Acute renal failure superimposed on possible chronic kidney disease. Kidney function is gradually improving. He remains off diuretics and SALOMÓN inhibitor and I would recommend to continue holding his SALOMÓN inhibitor and diuretic at discharge. The patient should follow up as an outpatient. 2. Hypomagnesemia. This is a chronic issue and the patient should continue with oral magnesium supplement 500 mg twice a day. 3. Gout. His acute symptoms have improved. However, uric acid level was very high. He should continue with allopurinol 100 mg daily at this time and we will adjust the dose as an outpatient. 4. GI bleed and anemia. The patient did have gastritis while he was on anticoagulation and GI bleed has been stable. His anticoagulation will need to be resumed at some point due to atrial fibrillation. DISPOSITION: From renal standpoint, the patient can be discharged to home and follow up as an outpatient.
== END 2020-01-19 13:06 | disposition home or self-care (01) | DRG 377 ==
LOC: EDBD 10:28 → EDSEX 10:28 → M ED 10:28 → M ED INP 13:32 → ENRESERV 13:38 → M MSPAV 16:53
PROVIDERS: ADMIT General Practice; ATTEND Internal Medicine
PROC: 0W3P8ZZ Control Bleeding in Gastrointestinal Tract, Via Natural or Artificial Opening Endoscopic (ICD-10-PCS; principal; 2020-01-13 18:00)
DX: K29.71 Gastritis, unspecified, with bleeding (principal); R57.8 Other shock; D62 Acute posthemorrhagic anemia; I48.20 Chronic atrial fibrillation, unspecified; J44.1 Chronic obstructive pulmonary disease with (acute) exacerbation; N17.9 Acute kidney failure, unspecified; E87.2 Acidosis; I24.8 Other forms of acute ischemic heart disease; E87.1 Hypo-osmolality and hyponatremia; K70.30 Alcoholic cirrhosis of liver without ascites; Z79.01 Long term (current) use of anticoagulants; I10 Essential (primary) hypertension; E66.9 Obesity, unspecified; Z68.39 Body mass index [BMI] 39.0-39.9, adult; F17.210 Nicotine dependence, cigarettes, uncomplicated; G47.33 Obstructive sleep apnea (adult) (pediatric); Z96.651 Presence of right artificial knee joint; Z96.652 Presence of left artificial knee joint; Z91.19 Patient's noncompliance with other medical treatment and regimen; Z96.641 Presence of right artificial hip joint; Z96.642 Presence of left artificial hip joint; M10.9 Gout, unspecified; Z79.899 Other long term (current) drug therapy; M19.90 Unspecified osteoarthritis, unspecified site; E83.42 Hypomagnesemia

== ENCOUNTER 2020-06-12 14:03 | Inpatient (IN) | payer MEDICARE ==
[2020-06-12] VITALS (9 sets, daily range): BP systolic 102–136; BP diastolic 56–89
[~2020-06-12] VITALS: Ht 182.9 cm; Wt 139.0 kg
[~2020-06-12 14:03] MED LIST changes: +ALLO10TA PO; +AMLO1TAB25 PO; +HYDR50TA70 PO; +MAGN50TA PO; +METO1TAB87 PO; +PANT40TA29 PO; +SUCR1ORA PO; +allopurinoL 100 MG TAB PO SCH; +amLODIPine 10 MG TAB PO SCH
[2020-06-12] MEDS ORDERED: NS 1,000 ML IV SCH ×2 (14:19→16:43)
[2020-06-12] MEDS ORDERED: PANTOPRAZOLE 40MG VIAL (C9113 PER 1) IV ONE (14:30)
[2020-06-12] MEDS ORDERED: methylPREDNISolone 125MG 2ML VIAL IV ONE (14:30)
[2020-06-12] MEDS ORDERED: IPRATROPIUM 0.5MG/ALBUTEROL 2.5MG INH SOL UD 3ML (DUONEB) NEB ONE (14:30)
[2020-06-12] MEDS ORDERED: ALBUTEROL SULFATE 2.5 MG/0.5 ML INH NEB SOLN INH ONE (14:30)
[2020-06-12 14:46] LABS: BASO # 0.1 10^3/uL (0.0-0.2); BASO % 0.4 % (0.0-1.0); HEMOGLOBIN 13.9 g/dl (13.5-17.5); LYMPH # 1.5 10^3/uL (1.5-5.0); LYMPH % 10.7 % (24.0-44.0); MEAN CORPUSCULAR HGB CONC 31.6 g/dl (32.0-36.5); MONO # 0.8 10^3/uL (0.0-0.8); MONO % 5.7 % (0.0-5.0); NEUTROPHILS # 11.9 10^3/uL (1.5-8.5); NEUTROPHILS % 82.2 % (36.0-66.0); PLATELET COUNT, AUTOMATED 282 10^3/uL (150-450); RED BLOOD COUNT 4.49 10^6/uL (4.30-6.10); WHITE BLOOD COUNT 14.5 10^3/uL (4.0-10.0)
[2020-06-12] MEDS ORDERED: XARE15TA PO (14:47)
[2020-06-12 14:57] LABS: INR 2.2; PARTIAL THROMBOPLASTIN TIME 30.1 SECONDS (24.2-38.5); PROTHROMBIN TIME 24.9 SECONDS (12.5-14.3)
[2020-06-12] MEDS ORDERED: DIGOXIN INJ 0.5 MG/2 ML AMP (J1160) IV STA (15:01)
[2020-06-12] MEDS ORDERED: ZOLP10TA2 PO (15:07)
[2020-06-12] MEDS ORDERED: MAGN500T6 PO (15:07)
[2020-06-12] MEDS ORDERED: CHLO125TA PO (15:07)
--- NOTE | 2020-06-12 15:07 | REP ---
INDICATION: sob. COMPARISON: Comparison is made with a CT study of the chest from January 13, 2020.. TECHNIQUE: Portable semi-erect AP radiograph. FINDINGS: Monitoring electrodes are seen. Mild cardiac enlargement is observed unchanged. Pulmonary vasculature is cephalized. No infiltrate is seen. Pleural angles are sharp. The aorta is calcific and tortuous. No significant bony abnormality. IMPRESSION: Mild cardiomegaly. No acute infiltrate seen. Pulmonary vascular cephalization. <Electronically signed by Humberto Monsivais > 06/12/20 [id number]
[2020-06-12 15:13] LABS: ALBUMIN 3.4 GM/DL (3.2-5.2); ALT/SGPT 34 U/L (12-78); AMYLASE 40 U/L (25-115); BILIRUBIN,DIRECT 0.4 MG/DL (0.0-0.2); BILIRUBIN,TOTAL 0.9 MG/DL (0.2-1.0); BLOOD UREA NITROGEN 34 MG/DL (7-18); CALCIUM LEVEL 9.1 MG/DL (8.8-10.2); CARBON DIOXIDE LEVEL 12 MEQ/L (21-32); CHLORIDE LEVEL 91 MEQ/L (98-107); CK-MB VALUE MASS 7.5 NG/ML (<3.6); CPK CREATINE PHOSPHOKINASE 123 U/L (39-308); CREATININE FOR GFR 2.09 MG/DL (0.70-1.30); GLUCOSE, FASTING 55 MG/DL (70-100); LIPASE 50 U/L (73-393); POTASSIUM SERUM 3.3 MEQ/L (3.5-5.1); SODIUM LEVEL 134 MEQ/L (136-145); TOTAL PROTEIN 7.2 GM/DL (6.4-8.2); TROPONIN I < 0.02 NG/ML (< 0.10)
[2020-06-12] MEDS ORDERED: DEXTROSE 50% 50 ML SYRINGE As Ordered ONE (15:21)
[2020-06-12] MEDS ORDERED: DEXTROSE 50% 50 ML SYRINGE IV STA (15:23)
[2020-06-12] MEDS ORDERED: PIPERACILLIN/TAZOBACTAM SOD 4.5 GM in D5W MINI-BAG PLUS 50 ML IV ONE (15:30)
[2020-06-12] MEDS ORDERED: ONDANSETRON 4MG/2ML VIAL IV ONE (15:30)
[2020-06-12] MEDS ORDERED: NS 2,990 ML in IV 1 EA IV ONE (15:30)
[2020-06-12 15:37] LABS: MAGNESIUM LEVEL 1.7 MG/DL (1.8-2.4)
[2020-06-12 15:50] LABS: C REACTIVE PROTEIN QUANTITATIV < 0.30 MG/DL (0.00-0.30)
[2020-06-12 16:21] LABS: ACETAMINOPHEN LEVEL < 2.0 UG/ML (10.0-30.0); ETHYL ALCOHOL (ETHANOL) 0.099 % (0.000-0.010); SALICYLATE LEVEL 2.1 MG/DL (5.0-30.0)
--- NOTE | 2020-06-12 16:22 | REP ---
INDICATION: abdominal pain. COMPARISON: Comparison chest CT study January 13, 2020.. TECHNIQUE: Helical scanning is acquired. 3 mm axial images are generated and reviewed. Coronal and sagittal MPR images are generated. FINDINGS: Digital preliminary straight cutter machine radiographs show cardiac enlargement. There is extensive vascular calcification in the aorta and great vessels. Vascular calcifications seen extensively in the distribution of the left coronary artery. There is no evidence of pleural or pericardial effusion. Mild cardiac enlargement is present. No infiltrate is seen in the lung martin. There is no evidence of atelectasis, lung mass, or significant pulmonary nodule. No adrenal abnormality is seen. Fatty infiltration of the liver is noted. There are degenerative changes in the thoracic spine. No significant bony abnormality. IMPRESSION: Extensive vascular calcification including coronary artery vascular calcification. Mild cardiac enlargement. Otherwise no acute disease. <Electronically signed by Humberto Monsivais > 06/12/20 [id number]
--- NOTE | 2020-06-12 16:25 | REP ---
INDICATION: abdominal pain COMPARISON: Comparison CT study of the abdomen and pelvis January 13, 2020.. TECHNIQUE: Helical scanning is acquired in 4 mm axial images were reformatted. Coronal and sagittal MPR images were generated and reviewed. FINDINGS: Preliminary digital greeting card editor radiograph shows bilateral hip prostheses. Bowel gas pattern is normal. There is diffuse fatty infiltration of the liver. I somewhat nodular liver contour is again seen question cirrhosis. No abnormality is noted in the gallbladder or the pancreas. There is no evidence of ascites. The umbilical vein appears to have been recannulated. No renal abnormality is observed. Normal adrenal glands are seen. No retroperitoneal mass or adenopathy is seen. Extensive vascular calcification is seen in a normal caliber aorta. Normal appendix is seen in the right lower quadrant. There is mild diverticulosis affecting the sigmoid colon. Mural thickening is seen in the sigmoid colon which may reflect early diverticulitis or enterocolitis. No pericolonic streaking is appreciated. Urinary bladder is intact. [place] artifact is seen obscuring the prostate and seminal vesicles. No bony destructive lesion. IMPRESSION: Status post bilateral hip arthroplasty. Fatty infiltration of the liver. Nodular liver contour consistent with cirrhosis with 3 cannulation of the umbilical vein. Diverticulosis of the sigmoid colon mural thickening question early diverticulitis. Normal appendix. Otherwise unremarkable. <Electronically signed by Humberto Monsivais > 06/12/20 [id number]
[2020-06-12] MEDS ORDERED: LORazepam 2 MG TAB PO PRN (16:45)
[2020-06-12] MEDS ORDERED: ACETAMINOPHEN TAB 650MG DOSE (2X325MG) PO PRN (16:45)
[2020-06-12] MEDS ORDERED: hydrOXYzine 50 MG TAB PO PRN (16:45)
[2020-06-12] MEDS ORDERED: SODIUM BICARBONATE 8.4% INJ 50 ML SYRINGE IV STA (17:04)
--- NOTE | 2020-06-12 17:07 | HPEPDOC ---
General Date of Admission Jun 12, 2020 at 16:37 Date of Service: Jun 12, 2020 Chief Complaint The patient is a 65-year-old male admitted with a reason for visit of Metabolic Acidosis. Source: Patient Exam Limitations: No limitations Timing/Duration: Day(s) Severity: Severe Associated Symptoms: Nausea, Vomiting History of Present Illness Patient is 65 years old male with past medical history of EtOH abuse, liver cirrhosis, atrial fibrillation on Xarelto presented hospital with coffee-ground emesis and black stool. Patient stated that for past 2 days he heavily drinking hard liqueur and he developed black stool with multiple episodes of vomiting. Of note patient was hospitalized in January 2020 with the same symptoms, EGD was done and showed Acute gastritis with hemorrhage. Clip (MR conditional) was placed. In ER patient was found to have atrial fibrillation with rapid ventricular rate, hemoglobin 13.9, leukocytes count 14.5, blood gas showed pH is 7.09, HCO3 9.5, anion gap 34, lactic acid 21. CT abdomen pelvis showed tatus post bilateral hip arthroplasty. Fatty infiltration of the liver. Nodular liver contour consistent with cirrhosis with 3 cannulation of the umbilical vein. Diverticulosis of the sigmoid colon mural thickening question early diverticulitis. CT chest showed Extensive vascular calcification including coronary artery vascular calcification. Mild cardiac enlargement Home Medications Scheduled Allopurinol (Allopurinol) 100 Mg Tablet, 100 MG PO DAILY Amlodipine Besylate (Amlodipine Besylate) 10 Mg Tablet, 10 MG PO DAILY, (Reported) Chlorthalidone (Chlorthalidone) 25 Mg Tablet, 25 MG PO DAILY, (Reported) Magnesium Gluconate (Magnesium Gluconate) 27 Mg Tablet, 500 MG PO DAILY, (Reported) Metoprolol Tartrate (Metoprolol Tartrate) 25 Mg Tablet, 25 MG PO BID, (Reported) Multivit-Min/FA/Lycopen/Lutein (Centrum Silver Tablet) 1 Each Tablet, 1 TAB PO DAILY, (Reported) Rivaroxaban (Xarelto) 15 Mg Tablet, 15 MG PO DAILY, (Reported) Zolpidem Tartrate (Zolpidem Tartrate) 10 Mg Tablet, 10 MG PO QHS, (Reported) Scheduled PRN Hydroxyzine HCl (Hydroxyzine HCl) 50 Mg Tablet, 50 MG PO QHS PRN for SLEEP, (Reported) Allergies Coded Allergies: No Known Allergies (Unverified , 04/13/19) Past Medical History Medical History Past medical history of liver cirrhosis, history of hypertension, chronic atrial fibrillation, history of alcohol abuse, hypertension, chronic back pain, chronic obstructive pulmonary disease (COPD), obstructive sleep apnea noncompliant with C-PAP. Surgical History Bilateral knee replacements and hip replacements. Family History I personally reviewed family history and found not pertinent Social History * Smoker: current smoker Alcohol: heavy Drugs: denies A-FIB/CHADSVASC A-FIB History Current/History of A-Fib/PAF?: Yes Current PO Anticoag Therapy: Yes Review of Systems Constitutional: Denies: Chills, Fever Eyes: Denies: Pain ENT: Denies: Head Aches Skin: Denies: Rash Pulmonary: Reports: Dyspnea Cardiovascular: Reports: Palpitations; Denies: Chest Pain Gastrointestinal: Reports: Nausea, Vomiting Genitourinary: Denies: Dysuria, Frequency Hematologic: Denies: Bruising Endocrine: Denies: Polydipsia, Polyphagia Musculoskeletal: Denies: Neck Pain Neurological: Denies: Weakness Psych: Reports: Anxiety Physical Examination General Exam: Positive: Alert, Cooperative ENT Exam: Positive: Atraumatic Neck Exam: Positive: Supple; Negative: JVD Chest Exam: Positive: Clear to auscultation Heart Exam: Positive: Tachycardic Telemetry: Positive: Atrial fibrillation Abdomen Exam: Positive: BS Hypoactive, Soft, Hepatospenomegaly Extremity Exam: Negative: Cyanosis Skin Exam: Positive: Nl turgor and temperature Neuro Exam: Positive: Strength at 5/5 X4 ext, Cranial Nerves 3-12 NL Psych Exam: Positive: Anxiety Vital Signs Vital Signs Date Time Temp Pulse Resp B/P (MAP) Pulse Ox O2 Delivery O2 Flow Rate FiO2 06/12/20 16:18 156 93 06/12/20 15:30 117/69 (85) 06/12/20 14:21 98.5 24 Room Air Laboratory Data Labs 24H Laboratory Tests 2 06/12/20 14:19: Immature Granulocyte % (Auto) 1.0, Neutrophils (%) (Auto) 82.2H, Lymphocytes (%) (Auto) 10.7L, Monocytes (%) (Auto) 5.7H, Eosinophils (%) (Auto) 0.0, Basophils (%) (Auto) 0.4, Neutrophils # (Auto) 11.9H, Lymphocytes # (Auto) 1.5, Monocytes # (Auto) 0.8, Eosinophils # (Auto) 0.0, Basophils # (Auto) 0.1, Nucleated Red Blood Cells % (auto) 0.0, Prothrombin Time 24.9H, Prothromb Time International Ratio 2.20, Activated Partial Thromboplast Time 30.1, Anion Gap 31H, Glomerular Filtration Rate 34.0L, Lactic Acid Level 21.0*H, Calcium Level 9.1, Magnesium Level 1.7L, Total Bilirubin 0.9, Direct Bilirubin 0.4H, Aspartate Amino Transf (AST/SGOT) 58H, Alanine Aminotransferase (ALT/SGPT) 34, Alkaline Phosphatase 63, Total Creatine Kinase 123, Creatine Kinase MB 7.5H, Creatine Kinase MB Relative Index 6.10H, Troponin I < 0.02, C-Reactive Protein, Quantitative < 0.30, Total Protein 7.2, Albumin 3.4, Albumin/Globulin Ratio 0.9, Amylase Level 40, Lipase 50L, Thyroid Stimulating Hormone (TSH) 0.530, Salicylates Level 2.1L, Acetam inophen Level < 2.0L, Ethyl Alcohol Level 0.099H 06/12/20 15:04: Coronavirus (COVID-19)(PCR) NEGATIVE, Influenza Type A (RT-PCR) NEGATIVE, Influenza Type B (RT-PCR) NEGATIVE, Respiratory Syncytial Virus (PCR) NEGATIVE 06/12/20 16:09: POC pH (Misc Panel) 7.097*L, POC Base Excess (Misc Panel) -20.0L, POC Saturated Percent O2 (Misc) 96, POC pO2 (Misc Panel) 114.0H, POC pCO2 (Misc Panel) 31.0L, POC HCO3 (Misc Panel) 9.5L, POC Total CO2 (Misc Panel) 10.0L 06/12/20 16:22: Bedside Glucose (Misc Panel) 123H 06/12/20 16:29: CBC/BMP Laboratory Tests 06/12/20 14:19 Microbiology Microbiology 06/12/20 Blood Culture, Received Pending Assessment/Plan Patient is 65 years old male with past medical history of EtOH abuse, liver cirrhosis, atrial fibrillation on Xarelto presented hospital with coffee-ground emesis and black stool. Patient stated that for past 2 days he heavily drinking hard liqueur and he developed black stool with multiple episodes of vomiting. Of note patient was hospitalized in January 2020 with the same symptoms, EGD was done and showed Acute gastritis with hemorrhage. Clip (MR conditional) was placed. In ER patient was found to have atrial fibrillation with rapid ventricular rate, hemoglobin 13.9, leukocytes count 14.5, blood gas showed pH is 7.09, HCO3 9.5, anion gap 34, lactic acid 21. CT abdomen pelvis showed tatus post bilateral hip arthroplasty. Fatty infiltration of the liver. Nodular liver contour consistent with cirrhosis with 3 cannulation of the umbilical vein. Diverticulosis of the sigmoid colon mural thickening question early diverticulitis. CT chest showed Extensive vascular calcification including coronary artery vascular calcification. Mild cardiac enlargement Problems (1) Metabolic acidosis Status: Acute Problem Text: Patient developed lactic acidosis non-hypoxic, most likely secondary to alcoholic ketoacidosis Banana bag Also there is possibility for methanol and ethylene glycol metabolites We will check urine and serum osmolality BMP every 4 hours Bicarbonate drip Appreciate/agree with officer captain consult (2) Atrial fibrillation with RVR Status: Acute Problem Text: Lopressor IV with parameters Metoprolol 50 mg now telemetry (3) Alcohol abuse Status: Acute Problem Text: CIWA (4) GI bleed Status: Acute Problem Text: Patient reported black stool and hematemesis In January of 2020 pt was diagnosed with Acute gastritis with hemorrhage. Clip (MR conditional) was placed PPI Hemoglobin stable H&H every 6 hours Plan / VTE VTE Prophylaxis Ordered?: No VTE Exclusion Pharmacological: Active Bleeding AMERICO DENIS DO Jun 12, 2020 17:07
[2020-06-12] MEDS ORDERED: METOPROLOL 5 MG/5 ML VIAL IV PRN (17:15)
[2020-06-12] MEDS ORDERED: METOPROLOL TART 50 MG TAB PO ONE (17:30)
[2020-06-12] MEDS ORDERED: SODIUM BICARBONATE 150 MEQ in D5W 1,000 ML IV SCH (18:00)
[2020-06-12] MEDS ORDERED: POTASSIUM CHLORIDE 10 MEQ SR TABLET PO ONE (18:00)
[2020-06-12] MEDS: ONDANSETRON 4MG/2ML VIAL IV PRN (18:14)
[2020-06-12] MEDS: MAGNESIUM GLUCONATE 500 MG TAB PO SCH (18:16)
[2020-06-12] MEDS: MULTIVITAMINS/MINERALS THERAP 1 TAB PO SCH (18:17)
[2020-06-12] MEDS ORDERED: D5W/0.9% SODIUM CHLORIDE 1,000 ML IV ONE (18:30)
[2020-06-12] MEDS ORDERED: LORazepam 2 MG/ML VIAL IV PRN (18:30)
[2020-06-12 18:51] LABS: VENOUS BASE EXCESS -22.1 (-2.0-2.0); VENOUS HCO3 8.5 MEQ/L (23.0-27.0); VENOUS O2 SATURATION 91.5 % (60.0-80.0); VENOUS PARTIAL PRESSURE CO2 35.6 mmHg (38.0-50.0); VENOUS PARTIAL PRESSURE O2 86.2 mmHg (30.0-50.0); VENOUS PH 6.997 UNITS (7.330-7.430); VENOUS STANDARD HCO3 8.9 MEQ/L; VENOUS TOTAL CO2 9.6 MEQ/L (24.0-28.0)
[2020-06-12 19:06] LABS: AMPHETAMINES LEVEL URINE NEGATIVE (NEGATIVE); BARBITURATES URINE NEGATIVE (NEGATIVE); BENZODIAZEPINES URINE NEGATIVE (NEGATIVE); CANNABINOIDS URINE NEGATIVE (NEGATIVE); COCAINE METABOLITE URINE NEGATIVE (NEGATIVE); METHADONE URINE NEGATIVE (NEGATIVE); OPIATES URINE NEGATIVE (NEGATIVE); PHENCYCLIDINE URINE NEGATIVE (NEGATIVE)
[2020-06-12 19:18] LABS: CALCIUM LEVEL 8.5 MG/DL (8.8-10.2); CREATININE FOR GFR 2.24 MG/DL (0.70-1.30); GLOMERULAR FILTRATION RATE 31.4 (>49); POTASSIUM SERUM 3.7 MEQ/L (3.5-5.1)
[2020-06-12 19:21] LABS: ACETONE/KETONE 19.59 MG/DL (<2.81); MAGNESIUM LEVEL 1.6 MG/DL (1.8-2.4); PHOSPHORUS LEVEL 6.5 MG/DL (2.5-4.9)
[2020-06-12 19:28] LABS: ACETAMINOPHEN LEVEL < 2.0 UG/ML (10.0-30.0); ETHYL ALCOHOL (ETHANOL) 0.019 % (0.000-0.010); SALICYLATE LEVEL < 1.7 MG/DL (5.0-30.0); THYROID STIMULATING HORMONE 0.535 uIU/ML (0.358-3.740)
--- NOTE | 2020-06-12 19:39 | ECGEPIP ---
[facility] - ED Test Date: 2020-06-12 Pat Name: KATHIE FOFANA Department: Room: - Gender: Male Pathologist: SHASHI : 1955 Requested By: Sara aSntos Order Number: [id number] Reading MD: Sara Santos Measurements Intervals [place]man Rate: 137 P: RI: 0 QRS: 86 QRSD: 77 T: 79 QT: 305 QTc: 461 Interpretive Statements ATRIAL FIBRILLATION WITH RAPID VENTRICULAR RESPONSE NONSPECIFIC T-WAVE ABNORMALITY ABNORMAL RHYTHM ECG RIGHTWARD AXIS CW 01/15/[address] T WAVE CHANGES Electronically Signed on 06-12-2020 19:39:07 EST by Sara Santos
[2020-06-12] MEDS: THIAMINE 100 MG TAB PO SCH (19:52)
[2020-06-12] MEDS: METOPROLOL TART 25 MG TABLET PO SCH (19:52)
[2020-06-12] MEDS: PANTOPRAZOLE 40MG VIAL (C9113 PER 1) IV SCH (19:53)
[2020-06-12] MEDS ORDERED: MAG SULF 1GM/100ML (MAG RUN) 1 GM in IV 1 EA IV ONE (20:00)
[2020-06-12] MEDS ORDERED: KCL 10MEQ/100ML SWI (KRUN) 10 MEQ in IV 1 EA IV ONE (21:00)
[2020-06-12 21:40] LABS: CALCIUM LEVEL 8.1 MG/DL (8.8-10.2); CREATININE FOR GFR 2.52 MG/DL (0.70-1.30); GLOMERULAR FILTRATION RATE 27.4 (>49); POTASSIUM SERUM 3.9 MEQ/L (3.5-5.1)
[2020-06-12] MEDS ORDERED: MULTIVITAMIN -ADULT INJECTION 10 ML, THIAMINE INJection 100 MG, FOLIC ACID 1 MG in NS 1... IV ONE (22:00)
[2020-06-12 22:58] LABS: ABG BASE EXCESS -12.7 (-2.0-2.0); ABG HCO3 14.1 MEQ/L (22.0-26.0); ABG O2 SATURATION 92.7 % (95.0-99.0); ABG PARTIAL PRESSURE CO2 35.6 mmHg (35.0-45.0); ABG PARTIAL PRESSURE O2 77.5 mmHg (75.0-100.0); ABG STANDARD HCO3 14.6 MEQ/L (22.0-26.0); ABG TOTAL CO2 15.2 MEQ/L (23.0-31.0)
[2020-06-12 22:59] LABS: ABG pH (ARTERIAL) 7.215 UNITS (7.350-7.450)
[2020-06-13] VITALS (13 sets, daily range): BP systolic 138–164; BP diastolic 74–99
[2020-06-13] MEDS: ONDANSETRON 4MG/2ML VIAL IV PRN (00:39)
[2020-06-13] MEDS ORDERED: GLUCAGON INJ 1MG VIAL SC PRN (00:45)
[2020-06-13] MEDS ORDERED: GLUCOSE 4GM CHEW TABLET PO PRN (00:45)
[2020-06-13] MEDS ORDERED: DEXTROSE 50% 50 ML SYRINGE IV PRN (00:45)
[2020-06-13 02:02] LABS: ACETONE/KETONE 10.48 MG/DL (<2.81); ALBUMIN 3.1 GM/DL (3.2-5.2); CALCIUM LEVEL 7.7 MG/DL (8.8-10.2); CREATININE FOR GFR 2.62 MG/DL (0.70-1.30); GLOMERULAR FILTRATION RATE 26.2 (>49); PHOSPHORUS LEVEL 2.9 MG/DL (2.5-4.9); POTASSIUM SERUM 4.5 MEQ/L (3.5-5.1)
[2020-06-13] MEDS ORDERED: SODIUM BICARBONATE 75 MEQ in NS 0.45% 1,000 ML IV SCH (02:30)
[2020-06-13] MEDS: SUCRALFATE SUSP 1GM/10ML UD PO SCH ×4 (02:47→17:44)
[2020-06-13] MEDS: OCTREOTIDE ACETATE 1,200 MCG in NS 238.8 ML IV SCH (03:00)
[2020-06-13 03:10] LABS: BASO % 0.1 % (0.0-1.0); HEMATOCRIT 37.1 % (42.0-52.0); HEMOGLOBIN 12.1 g/dl (13.5-17.5); LYMPH # 0.6 10^3/uL (1.5-5.0); LYMPH % 3.8 % (24.0-44.0); MEAN CORPUSCULAR HEMOGLOBIN 30.9 pg (27.0-33.0); MEAN CORPUSCULAR HGB CONC 32.6 g/dl (32.0-36.5); MEAN CORPUSCULAR VOLUME 94.9 fl (80.0-96.0); MONO # 0.7 10^3/uL (0.0-0.8); MONO % 4.8 % (0.0-5.0); NEUTROPHILS # 13.9 10^3/uL (1.5-8.5); NEUTROPHILS % 90.8 % (36.0-66.0); RED BLOOD COUNT 3.91 10^6/uL (4.30-6.10); WHITE BLOOD COUNT 15.3 10^3/uL (4.0-10.0)
[2020-06-13 03:11] LABS: VENOUS BASE EXCESS -1.8 (-2.0-2.0); VENOUS HCO3 23.6 MEQ/L (23.0-27.0); VENOUS O2 SATURATION 99.1 % (60.0-80.0); VENOUS PARTIAL PRESSURE CO2 42.5 mmHg (38.0-50.0); VENOUS PARTIAL PRESSURE O2 155.7 mmHg (30.0-50.0); VENOUS PH 7.362 UNITS (7.330-7.430); VENOUS TOTAL CO2 24.9 MEQ/L (24.0-28.0)
[2020-06-13 03:17] LABS: PLATELET COUNT, AUTOMATED 145 10^3/uL (150-450)
[2020-06-13 03:30] LABS: PROTHROMBIN TIME 23.1 SECONDS (12.5-14.3)
[2020-06-13 03:35] LABS: CALCIUM LEVEL 7.5 MG/DL (8.8-10.2); CREATININE FOR GFR 2.55 MG/DL (0.70-1.30); MAGNESIUM LEVEL 1.4 MG/DL (1.8-2.4); POTASSIUM SERUM 3.7 MEQ/L (3.5-5.1)
[2020-06-13] MEDS: MAG SULF 1GM/100ML (MAG RUN) 1 GM in IV 1 EA IV SCH ×3 (06:19→08:39)
[2020-06-13] MEDS ORDERED: SLF 3 ML SYR IV PRN (06:30)
[2020-06-13 06:42] LABS: BASO % 0.1 % (0.0-1.0); HEMATOCRIT 37.5 % (42.0-52.0); HEMOGLOBIN 12.3 g/dl (13.5-17.5); LYMPH # 0.7 10^3/uL (1.5-5.0); LYMPH % 5.2 % (24.0-44.0); MEAN CORPUSCULAR HEMOGLOBIN 30.9 pg (27.0-33.0); MEAN CORPUSCULAR HGB CONC 32.8 g/dl (32.0-36.5); MEAN CORPUSCULAR VOLUME 94.2 fl (80.0-96.0); MONO # 0.6 10^3/uL (0.0-0.8); NEUTROPHILS # 12.8 10^3/uL (1.5-8.5); NEUTROPHILS % 90.3 % (36.0-66.0); PLATELET COUNT, AUTOMATED 115 10^3/uL (150-450); RED BLOOD COUNT 3.98 10^6/uL (4.30-6.10); WHITE BLOOD COUNT 14.1 10^3/uL (4.0-10.0)
--- NOTE | 2020-06-13 06:53 | CR ---
NEPHROLOGY CONSULTATION REQUESTING PHYSICIAN: Dr. Flaco Smalls CONSULTING PHYSICIAN: Dr. Lomas REASON FOR CONSULTATION: Management of severe metabolic acidosis CHIEF COMPLAINT: The patient presented to the hospital today in the Emergency Room with nausea, vomiting and shortness of breath. HISTORY OF PRESENT ILLNESS: Sebastian Johnson is a 65-year-old male with a past medical history of hypertension, chronic gout, history of alcohol abuse, chronic kidney disease stage 4, at baseline with a baseline creatinine of around 1.5 as of January 2020. He has a history of heavy alcohol drinking and alcohol associated liver cirrhosis, atrial fibrillation, on anticoagulation, multiple other comorbidities as mentioned below. He was heavily drinking vodka, hard liquor for the last 3 days after he tried to cut down his opioid pain medications. He started having coffee ground emesis and black, tarry stools, and he was getting more and more short of breath. When he presented to the Emergency Room he was found to be in atrial fibrillation with rapid ventricular rate. He was found to have severe high anion gap metabolic acidosis with lactic acidosis. He was admitted under the Hospitalist Service. Nephrology Service was called for further help in the management of this patient with severe metabolic acidosis. He had a lactic acid level of 21 on arrival. He had a creatinine of 2 on arrival. The patient needed my immediate attention. I emergently saw the patient in the ICU tonight. The patient was able to provide some history. He was awake and in moderately severe respiratory distress. He was getting IV fluid hydration. PAST MEDICAL HISTORY: The patient's past medical history is significant for: 1. Liver cirrhosis. 2. Hypertension. 3. Chronic atrial fibrillation. 4. Alcohol abuse. 5. Hypertension. 6. Chronic kidney disease stage 3 to early stage 4, baseline creatinine of around 1.5 to 1.7. 7. COPD, noncompliant with CPAP. PAST SURGICAL HISTORY: The patient's past surgical history is significant for: 1. Status post bilateral knee replacements. 2. Hip replacement. ALLERGIES: No known drug allergies. FAMILY HISTORY: No significant family history of end-stage renal disease. SOCIAL HISTORY: The patient is an active smoker. He is a heavy alcohol drinker. He denies any other drug abuse. REVIEW OF SYSTEMS: Constitutional: He reports feeling very weak and tired. He denies any fevers or chills. Eyes: He denies any blurry vision, double vision. ENT: He denies any dysphagia or odynophagia. Cardiovascular: He reports palpitations. Respiratory: He reports shortness of breath. GI: He reports coffee ground emesis and melena. Genitourinary: He reports decreased urine output. Musculoskeletal: He reports knees pains and hip pains and back pain. Skin: He denies any rashes or ulcers. Psych: He denies any depression/anxiety. Hematological/Oncological: He denies any easy bleeding or bruising. HEALTH PROMOTER: He denies any strokes or weakness. All other review of systems is negative. PHYSICAL EXAMINATION: GENERAL APPEARANCE: The patient is awake, alert, oriented x3, morbidly obese, laying in the bed. VITAL SIGNS: Temperature is 99 degrees Fahrenheit, blood pressure is 104/65, pulse is 133, respiratory rate of 26, saturating 93% on nasal cannula at one liter. INTAKE AND OUTPUT: Urine output recorded so far as only 325 mL. HEAD AND NECK: Extraocular muscles intact. Pupils are equally round and reactive to light. Mucous membranes are dry. Neck is supple. There is no jugular venous distention. CARDIOVASCULAR: S1, S2, tachycardia, irregular heart rate. EXTREMITIES: No edema of the bilateral lower extremities. RESPIRATORY: The patient has mild expiratory wheezing. Otherwise no active rales or rhonchi. Bilaterally good air entry. ABDOMEN: Soft, obese, positive bowel sounds. I could not appreciate any ascites, no organomegaly. GENITOURINARY: He has an indwelling Godinez catheter. A small amount of dark urine was observed in the bag. MUSCULOSKELETAL: No clubbing, no cyanosis. Pulses are 2+. HEALTH PROMOTER: No focal deficits. Power is 5/5 in all extremities. LABORATORY REVIEW: CBC showed a WBC of 14.5, hemoglobin 13.9, platelets are 282. INR is 2.2. Urinalysis showed 2+ protein and trace ketones. Random osmolarity was 467. Point of care pH was 7.09. Pco2 was 31, pO2 was 114. Bicarbonate was 9.5. O2 sat was not available. BMP on arrival showed sodium 134, potassium 3.3, chloride 91, bicarbonate 12, anion gap 31, BUN 34, creatinine 2.09, sugar was 55, lactic acid was 21, magnesium 1.7. Total bilirubin 0.9, direct bilirubin 0.4, AST 58, ALT 34, alkaline phosphatase is 63, CKMB 7.5, amylase is 40, lipase is 50, TSH is 0.53. Repeat BMP done now after initial resuscitation showed sodium of 132, potassium 3.9, chloride 90, bicarbonate 14, anion gap 28, BUN 36, creatinine is 2.5. Glucose 267, lactic acid level is 19.4 now. Serum osmolality was 316, phosphorous is 6.5, magnesium is 1.6. Alcohol level initially was 0.099. A repeat one after 6 hours was 0.019. Beta hydroxybutyrate was 19.5. Microbiology: Blood cultures are pending. IMAGING: A CAT scan of the abdomen and pelvis was done which showed bilateral hip arthroplasty, fatty infiltration of the liver, nodular liver contour consistent with cirrhosis, diverticulosis of the sigmoid colon, early diverticulitis, normal appendix. A CT of the chest was done which showed extensive vascular calcifications including coronary artery vascular calcifications, mild cardiac enlargement. CURRENT INPATIENT MEDICATIONS: The patient's medications at this time in the ICU include: 1. IV normal saline bolus 2.9 liters. 2. Multivitamin IV. 3. Magnesium Sulfate one gram IV times one dose. 4. He is getting D5W with 150 mEq of bicarbonate at 120 mL an hour. 5. Zosyn 4.5 grams IV times one dose was given. 6. He is on Albuterol p.r.n. 7. He was supposed to receive Allopurinol, Amlodipine and Chlorthalidone which have all been stopped. 8. He got a stat dose of D50 50 mL IV times one dose. 9. He got Digoxin 0.5 mg IV times one dose. 10. He is on Folic Acid one mg p.o. daily. 11. Ativan p.r.n. 12. Magnesium Gluconate 500 mg p.o. daily. 13. Solu-Medrol 125 mg IV times one dose was given. 14. He got Lopressor 5 mg IV q. one hour and 25 mg p.o. twice daily. 15. Multivitamin one tablet p.o. daily. 16. Zofran p.r.n. 17. Protonix 40 mg IV twice daily. 18. Potassium Chloride 40 mEq p.o. times one dose was given and he was also given sodium bicarbonate 50 mEq IV times one dose stat. 19. Thiamine 100 mg p.o. twice daily. 20. He is going to be started on a banana bag soon at 120 mL an hour. ASSESSMENT: A 65-year-old male with a past medical history of chronic kidney disease stage 3 to early stage 4, hypertension, alcohol abuse, chronic gout, admitted this time with alcohol induced lactic acidosis and ketoacidosis along with atrial fibrillation with rapid ventricular rate and acute renal failure superimposed on chronic kidney disease. PLAN: 1. High anion gap metabolic acidosis it is secondary to a combination of alcohol induced lactic acidosis and ketoacidosis. The patient is getting bicarbonate containing fluid. I have ordered an ABG. Continue fingerstick blood sugar monitoring every 4 hourly. Continue the banana bag at this time. The patient is making around 30 mL of urine an hour. If I do not see further improvement of the renal function, I would have a low threshold to start this patient on dialysis. However in the last 6-8 hours with IV fluid hydration, I have seen some improvement in his bicarbonate level. His lactic acidosis is also slowly improving. 2. Hypokalemia - The patient got oral and IV potassium. Potassium level is within the acceptable range. I am going to add potassium in the IV fluid hydration as well. 3. Hypomagnesemia - The patient got magnesium sulfate one gram IV times one dose. 4. Ethanol intoxication - The patient's ethanol level is slowly improving. He is getting a Multivitamin in the IV fluid. He is also getting oral thiamine and folic acid daily. 5. Atrial fibrillation with rapid ventricular rate - The patient got IV Digoxin and IV Metoprolol. We also need to correct is acidosis. 6. History of hypertension - blood pressure is low and he is dehydrated. Hold all the antihypertensives at this time. 7. Chronic gout secondary to chronic kidney disease hold the current dose of Allopurinol at this time until the renal function gets better. 8. Chronic hip pain and knee pains avoid use of NSAIDs at this time. Thank you for involving me in the care of this patient. I shall be happy to follow the patient along with you tomorrow morning. [facility]
[2020-06-13 07:10] LABS: CALCIUM LEVEL 7.9 MG/DL (8.8-10.2); CREATININE FOR GFR 2.25 MG/DL (0.70-1.30); GLOMERULAR FILTRATION RATE 31.2 (>49); POTASSIUM SERUM 3.5 MEQ/L (3.5-5.1)
[2020-06-13 08:02] LABS: ABG BASE EXCESS 3.9 (-2.0-2.0); ABG HCO3 30.7 MEQ/L (22.0-26.0); ABG O2 SATURATION 87.3 % (95.0-99.0); ABG PARTIAL PRESSURE CO2 55.5 mmHg (35.0-45.0); ABG PARTIAL PRESSURE O2 56.8 mmHg (75.0-100.0); ABG STANDARD HCO3 27.7 MEQ/L (22.0-26.0); ABG TOTAL CO2 32.4 MEQ/L (23.0-31.0)
[2020-06-13] MEDS ORDERED: MULTIVITAMINS/MINERALS THERAP 1 TAB PO SCH (09:00)
[2020-06-13] MEDS ORDERED: CHLORTHALIDONE 25 MG TAB PO SCH (09:00)
[2020-06-13] MEDS: FOLIC ACID 1 MG TAB PO SCH (09:26)
[2020-06-13] MEDS: MAGNESIUM GLUCONATE 500 MG TAB PO SCH ×2 (09:26→23:36)
[2020-06-13] MEDS: THIAMINE 100 MG TAB PO SCH ×2 (09:26→20:35)
[2020-06-13] MEDS: MULTIVITAMINS/MINERALS THERAP 1 TAB PO SCH (09:27)
[2020-06-13] MEDS: PANTOPRAZOLE 40MG VIAL (C9113 PER 1) IV SCH ×2 (09:27→20:35)
[2020-06-13] MEDS: METOPROLOL TART 25 MG TABLET PO SCH ×2 (09:27→20:35)
--- NOTE | 2020-06-13 12:26 | IPNPDOC ---
Text Note Date of Service The patient was seen on 06/13/20. NOTE Subjective: Overnight patient developed a few episodes of bloody bowel moveme nts. Patient developed hypoxia and he was placed on a 2 L of oxygen. Objective: GENERAL APPEARANCE: Morbidly obese male HEENT: no scleral icterus, plus JVD, EOMI CARDIOVASCULAR: S1S2 LUNGS: Mild bilateral crackles at the base ABDOMEN: Obese, nontender MUSCULOSKELETAL: no cyanosis, no swelling INTEGUMENT: no generalized palor NEUROLOGICAL: cranial nerve function from 2-12 intact intact, follows commands, speech not dysarthric Assessment/Plan Patient is 65 years old male with past medical history of EtOH abuse, liver cirrhosis, atrial fibrillation on Xarelto presented hospital with coffee-ground emesis and black stool. Patient stated that for past 2 days he heavily drinking hard liqueur and he developed black stool with multiple episodes of vomiting. Of note patient was hospitalized in January 2020 with the same symptoms, EGD was done and showed Acute gastritis with hemorrhage. Clip (MR conditional) was placed. In ER patient was found to have atrial fibrillation with rapid ventricular rate, hemoglobin 13.9, leukocytes count 14.5, blood gas showed pH is 7.09, HCO3 9.5, anion gap 34, lactic acid 21. CT abdomen pelvis showed tatus post bilateral hip arthroplasty. Fatty infiltration of the liver. Nodular liver contour consistent with cirrhosis with 3 cannulation of the umbilical vein. Diverticulosis of the sigmoid colon mural thickening question early diverticulitis. CT chest showed Extensive vascular calcification including coronary artery vascular calcification. Mild cardiac enlargement Problems (1) Metabolic acidosis Patient developed lactic acidosis non-hypoxic, most likely secondary to alcoholic ketoacidosis Patient received Banana bag and bicarbonate with positive effect. ABG markedly improved BMP every 4 hours Continue IV normal saline (2) Atrial fibrillation with RVR Heart rate under control Lopressor IV with parameters Metoprolol PO telemetry (3) Alcohol abuse CIWA (4) GI bleed Patient reported black stool and hematemesis In January of 2020 pt was diagnosed with Acute gastritis with hemorrhage. Clip (MR conditional) was placed PPI Hemoglobin stable H&H every 6 hours Continue octreotide drip Will start ceftriaxone Appreciate/agree with GI consult Liver cirrhosis Follow-up with GI in the outpatient settings Hyponatremia Most likely secondary to aggressive IV fluid replacement Bicarbonate stopped, started IV normal saline VS,Fishbone, I+O VS, Fishbone, I+O Laboratory Tests 06/12/20 14:19 06/12/20 18:34 06/12/20 21:09 06/13/20 01:07 06/13/20 03:03 06/13/20 06:28 Vital Signs Date Time Temp Pulse Resp B/P (MAP) Pulse Ox O2 Delivery O2 Flow Rate FiO2 06/13/20 09:27 92 143/67 06/13/20 08:00 99.1 26 92 Nasal Cannula 2.0 I&O- Last 24 Hours up to 6 AM0 06/13/20 06:00 Intake Total 7085 ml Output Total 770 ml Balance 6315 ml AMERICO DENIS DO Jun 13, 2020 12:26
[2020-06-13] MEDS ORDERED: NS 1,000 ML IV SCH (12:30)
[2020-06-13 13:05] LABS: CALCIUM LEVEL 8.2 MG/DL (8.8-10.2); CREATININE FOR GFR 2.09 MG/DL (0.70-1.30); POTASSIUM SERUM 3.4 MEQ/L (3.5-5.1)
[2020-06-13] MEDS ORDERED: cefTRIAXone SOD 2 GM in D5W MINI-BAG PLUS 50 ML IV SCH (14:00)
[2020-06-13] MEDS: SLF 3 ML SYR IV SCH ×2 (14:00→20:36)
[2020-06-13] MEDS ORDERED: POTASSIUM CHLORIDE 10 MEQ SR TABLET PO ONE (14:45)
[2020-06-13 15:28] LABS: HEMOGLOBIN A1c 5.7 %
[2020-06-13] MEDS: HumaLOG INSULIN (NovoLOG) PER UNIT SC SCH ×2 (17:45→20:35)
[2020-06-13 19:31] LABS: CALCIUM LEVEL 8.1 MG/DL (8.8-10.2); CREATININE FOR GFR 1.98 MG/DL (0.70-1.30); GLOMERULAR FILTRATION RATE 36.2 (>49); POTASSIUM SERUM 3.1 MEQ/L (3.5-5.1)
[2020-06-13] MEDS ORDERED: POTASSIUM CHLORIDE 10% LIQ 20 MEQ/15 ML UDC PO ONE (22:30)
[2020-06-13] MEDS ORDERED: IPRATROPIUM 0.5MG/ALBUTEROL 2.5MG INH SOL UD 3ML (DUONEB) NEB PRN (23:00)
--- NOTE | 2020-06-13 23:47 | IPN ---
PROGRESS NOTE DATE: 06/13/2020. SUBJECTIVE: Patient seen and examined this morning at the bedside in the Intensive Care Unit. Apparently patient had a few episodes of bloody bowel movement overnight and he was made n.p.o. and is pending gastroenterology consultation. His high anion gap metabolic acidosis has resolved with serum bicarbonate, now in the low 30's. His bicarbonate containing I.V. fluids were discontinued this morning and because of n.p.o. status, he was started on low dose maintenance fluids with normal saline at 40 cc an hour. PHYSICAL EXAMINATION: VITAL SIGNS: Temperature 99.0, pulse 73, respiratory rate 24 to 26, blood pressure 138/83, saturating 92% on 2 liters nasal cannula. INTAKE: Yesterday was 5200. OUTPUT: Urine output yesterday was 500, but urine output today is almost 3 liters. Weight in the bed scale today was not recorded. GENERAL: Patient is seen lying in bed, a morbidly obese male,. HEENT: Extraocular muscles are intact. Oral mucosa is moist. Nasal cannula is in place. Neck veins are a little difficult to assess, but do appear elevated. CARDIAC: Heart sounds are irregular S1, S2. There is no leg edema. RESPIRATORY: There are diminished breath sounds at the bases. There is occasional expiratory wheeze. There is no accessory muscle use. ABDOMEN: Markedly obese and nontender. EXTREMITIES: Negative for localized swelling. GENITOURINARY: Shows Godinez catheter. LABORATORY DATA: Sodium 128, potassium 3.4, bicarbonate 33, BUN 30, creatinine 2.0. Lactic acid down trended to 2.8. Hemoglobin 12.3, white count 14.1, platelets 115,000. Blood cultures showed no growth for 24 hours times two sets. IMAGING STUDIES: CT abdomen and pelvis done yesterday showed no evidence of ascites, no adenopathy. INPATIENT MEDICATIONS: He is on I.V. Ceftriaxone. He received multiple runs of magnesium sulfate I.V. His sodium bicarbonate I.V. fluids were stopped earlier this morning. He received normal saline at 40 cc an hour while he was n.p.o. Once he was written for clear liquid diet, his I.V. fluids were discontinued altogether. He is on Octreotide drip. Insulin was adjusted by the primary team. His magnesium was increased to b.i.d. He continues on Metoprolol, Protonix 40 mg I.V. b.i.d. He received potassium chloride 40 mEq p.o. times one. His remainder of medications are unchanged from prior. PROBLEMS: 1. Status post high anion gap metabolic acidosis secondary to alcohol induced lactic acidosis and ketoacidosis: It has resolved, actually his serum bicarbonate levels are up to the low 30's. His bicarbonate containing I.V. fluids were stopped earlier this morning. His renal function has also improved. As he is on a clear liquid diet, I am stopping his I.V. fluids at this time. His lactic acid levels have normalized. 2. VANDANA on CKD stage 3 to stage 4: His baseline creatinine appears to be around 1.6 to 1.9. His renal function has recovered towards baseline. He received aggressive I.V. fluids. He is now requiring nasal cannula. I am discontinuing him off of I.V. fluids at this time. He has made close to 3 liters of urine thus far today. Hence, I am holding off on giving him any sort of diuretic. In addition, he is also potassium and magnesium depleted and these need to be repleted prior to starting any diuretic. 3. Hypervolemic hyponatremia: When I look back at his older labs, the patient's sodium level always runs low and it may be related to his alcoholism, however at present, he also received aggressive I.V. fluids on this admission and is now requiring low dose supplemental oxygen. He may be a little bit on the wet side with some hypervolemia contributing to the hyponatremia. His I.V. fluids are discontinued. Will possibly start him on diuretics tomorrow. 4. Hypokalemia: He is receiving oral supplementation and his electrolytes need to be corrected as he is chronically diuretic dependent (takes Chlorthalidone at home). 5. Hypomagnesemia: He is receiving both I.V. and oral magnesium supplementation 6. Hypertension: He takes Amlodipine and Chlorthalidone at home and both are held at present. I would plan to resume him on diuretic tomorrow once his electrolytes are repleted as long as his renal function stays stable.
[2020-06-14] VITALS (7 sets, daily range): BP systolic 132–151; BP diastolic 71–87
[2020-06-14] MEDS: SUCRALFATE SUSP 1GM/10ML UD PO SCH ×5 (00:39→23:25)
[2020-06-14] MEDS: OCTREOTIDE ACETATE 1,200 MCG in NS 238.8 ML IV SCH (00:39)
[2020-06-14 01:33] LABS: CALCIUM LEVEL 7.5 MG/DL (8.8-10.2); CREATININE FOR GFR 1.71 MG/DL (0.70-1.30); GLOMERULAR FILTRATION RATE 42.9 (>49); POTASSIUM SERUM 3.5 MEQ/L (3.5-5.1)
[2020-06-14] MEDS ORDERED: zolPIDEM TARTRATE 5 MG TAB PO ONE ×2 (02:15→22:00)
[2020-06-14] MEDS: SLF 3 ML SYR IV SCH ×3 (06:00→20:53)
[2020-06-14 06:06] LABS: BASO % 0.1 % (0.0-1.0); HEMATOCRIT 36.9 % (42.0-52.0); HEMOGLOBIN 12.2 g/dl (13.5-17.5); LYMPH # 0.7 10^3/uL (1.5-5.0); LYMPH % 8.4 % (24.0-44.0); MEAN CORPUSCULAR HEMOGLOBIN 31.1 pg (27.0-33.0); MEAN CORPUSCULAR HGB CONC 33.1 g/dl (32.0-36.5); MEAN CORPUSCULAR VOLUME 94.1 fl (80.0-96.0); MONO # 0.5 10^3/uL (0.0-0.8); MONO % 6.1 % (0.0-5.0); NEUTROPHILS # 7.1 10^3/uL (1.5-8.5); NEUTROPHILS % 84.9 % (36.0-66.0); RED BLOOD COUNT 3.92 10^6/uL (4.30-6.10); WHITE BLOOD COUNT 8.4 10^3/uL (4.0-10.0)
[2020-06-14 06:31] LABS: CALCIUM LEVEL 7.6 MG/DL (8.8-10.2); CREATININE FOR GFR 1.59 MG/DL (0.70-1.30); GLOMERULAR FILTRATION RATE 46.6 (>49); POTASSIUM SERUM 3.2 MEQ/L (3.5-5.1)
[2020-06-14 06:42] LABS: PLATELET COUNT, AUTOMATED 79 10^3/uL (150-450)
[2020-06-14] MEDS: HumaLOG INSULIN (NovoLOG) PER UNIT SC SCH ×4 (07:54→20:52)
--- NOTE | 2020-06-14 07:58 | REP ---
INDICATION: sob. COMPARISON: Portable chest dated 06/12/2020. TECHNIQUE: Single AP portable view with the patient upright. FINDINGS: Cardiomegaly is unchanged. Cephalization of the pulmonary vasculature is unchanged. There are no focal infiltrates or pleural effusions. IMPRESSION: No interval change. <Electronically signed by Rip Escobar > 06/14/20 0750
[2020-06-14] MEDS ORDERED: POTASSIUM CHLORIDE 10 MEQ SR TABLET PO SCH (09:00)
[2020-06-14] MEDS: MAGNESIUM GLUCONATE 500 MG TAB PO SCH ×2 (09:25→20:51)
[2020-06-14] MEDS: MULTIVITAMINS/MINERALS THERAP 1 TAB PO SCH (09:25)
[2020-06-14] MEDS: FOLIC ACID 1 MG TAB PO SCH (09:25)
[2020-06-14] MEDS: THIAMINE 100 MG TAB PO SCH ×2 (09:25→20:51)
[2020-06-14] MEDS: PANTOPRAZOLE 40MG VIAL (C9113 PER 1) IV SCH ×2 (09:26→20:53)
[2020-06-14] MEDS: METOPROLOL TART 25 MG TABLET PO SCH ×2 (09:26→20:52)
[2020-06-14] MEDS ORDERED: CEPACOL LOZENGE PO PRN (09:45)
[2020-06-14 10:45] LABS: MAGNESIUM LEVEL 2.1 MG/DL (1.8-2.4)
--- NOTE | 2020-06-14 11:59 | IPNPDOC ---
Text Note Date of Service The patient was seen on 06/14/20. NOTE Subjective: No any acute events overnight. Patient stated that he is doing be tter today and he is hungry. Objective: GENERAL APPEARANCE: Morbidly obese male HEENT: no scleral icterus, plus JVD, EOMI CARDIOVASCULAR: S1S2 LUNGS: Mild bilateral crackles at the base ABDOMEN: Obese, nontender MUSCULOSKELETAL: no cyanosis, no swelling INTEGUMENT: no generalized palor NEUROLOGICAL: cranial nerve function from 2-12 intact intact, follows commands, speech not dysarthric Assessment/Plan Patient is 65 years old male with past medical history of EtOH abuse, liver cir rhosis, atrial fibrillation on Xarelto presented hospital with coffee-ground emesis and black stool. Patient stated that for past 2 days he heavily drinking hard liqueur and he developed black stool with multiple episodes of vomiting. Of note patient was hospitalized in January 2020 with the same symptoms, EGD was done and showed Acute gastritis with hemorrhage. Clip (MR conditional) was placed. In ER patient was found to have atrial fibrillation with rapid ventricular rate, hemoglobin 13.9, leukocytes count 14.5, blood gas showed pH is 7.09, HCO3 9.5, anion gap 34, lactic acid 21. CT abdomen pelvis showed tatus post bilateral hip arthroplasty. Fatty infiltration of the liver. Nodular liver contour consistent with cirrhosis with 3 cannulation of the umbilical vein. Diverticulosis of the sigmoid colon mural thickening question early diverticulitis. CT chest showed Extensive vascular calcification including coronary artery vascular calcification. Mild cardiac enlargement Problems Metabolic acidosis Resolved Patient developed lactic acidosis non-hypoxic, most likely secondary to alcoh olic ketoacidosis Patient received Banana bag and bicarbonate with positive effect. ABG markedly improved Atrial fibrillation with RVR Heart rate under control Lopressor IV with parameters Metoprolol PO telemetry Anticoagulation on hold due to recent GI bleed Alcohol abuse [facility] GI bleed Patient reported black stool and hematemesis In January of 2020 pt was diagnosed with Acute gastritis with hemorrhage. Clip (MR conditional) was placed PPI Hemoglobin stable H&H every 6 hours I talked to Dr. Kee he recommended to discontinue antibiotic therapy and octreotide. Liver cirrhosis Follow-up with GI in the outpatient settings Hypervolemic Hyponatremia Improved Most likely secondary to aggressive IV fluid replacement Bicarbonate stopped, started IV normal saline Hypokalemia Replaced Hypertension Continue home medications VS,Fishbone, I+O VS, Fishbone, I+O Laboratory Tests 06/13/20 12:33 06/13/20 18:55 06/14/20 01:03 06/14/20 05:45 Vital Signs Date Time Temp Pulse Resp B/P (MAP) Pulse Ox O2 Delivery O2 Flow Rate FiO2 06/14/20 09:26 78 151/86 06/14/20 04:00 2.0 06/14/20 04:00 98.6 16 94 Nasal Cannula I&O- Last 24 Hours up to 6 AM 06/14/20 06:00 Intake Total 2980 ml Output Total 5400 ml Balance -2420 ml AMERICO DENIS DO Jun 14, 2020 11:59
[2020-06-14] MEDS ORDERED: amLODIPine 10 MG TAB PO ONE (12:00)
[2020-06-14] MEDS: SPIRONOLACTONE 12.5MG PER 1/2 TABLET PO SCH (12:13)
[2020-06-14 13:23] LABS: CALCIUM LEVEL 8.2 MG/DL (8.8-10.2); CREATININE FOR GFR 1.56 MG/DL (0.70-1.30); GLOMERULAR FILTRATION RATE 47.6 (>49); POTASSIUM SERUM 3.3 MEQ/L (3.5-5.1)
[2020-06-14] MEDS ORDERED: CHLORTHALIDONE 25 MG TAB PO ONE (14:00)
[2020-06-14] MEDS ORDERED: KCL 10MEQ/100ML SWI (KRUN) 10 MEQ in IV 1 EA IV ONE (15:00)
--- NOTE | 2020-06-14 21:08 | IPN ---
NEPHROLOGY PROGRESS NOTE DATE: 06/14/2020 SUBJECTIVE: The patient is seen and examined sitting out of bed to the chair this morning in the Intensive Care Unit. He denies any overnight complaints. Denies any repeat bloody bowel movement. He was advanced to a full liquid diet. He is polyuric at present and laboratory studies show increasing metabolic alkalosis and renal function has recovered to baseline. His Godinez catheter is being removed. VITAL SIGNS: Temperature 97.8, pulse 80, respiratory rate 22, blood pressure 149/77, saturating 93-97% on one liter nasal cannula. Intake yesterday was 4.5 liters. Urine output yesterday was 4 liters. Net positive 500 mL. Urine output this far today is already greater than 4 liters. Weight on the bed scale today is 140 kg. PHYSICAL EXAMINATION: GENERAL APPEARANCE: The patient is seen sitting out of bed to the chair, obese, male, awake alert, oriented x3 in no apparent distress. HEENT: The extraocular muscles are intact. Oral mucosa is moist. Nasal cannula is in place. NECK: Neck veins are a little difficult to assess but do not look elevated while he is sitting upright. HEART: Irregular. S1, S2. EXTREMITIES: No leg edema nor dependent edema. RESPIRATORY: There is prolonged expiration. Breath sounds are distant due to body habitus. No accessory muscle use and no audible crackles. ABDOMEN: Significantly obese and nontender. GENITOURINARY: Godinez catheter was removed. NEUROLOGICAL: He is oriented x3, interactive and conversational. LABORATORY STUDIES: Sodium 131, potassium 3.3, bicarbonate 38, BUN 17, creatinine 1.5, magnesium 2.1, hemoglobin 12.2. Blood cultures no growth for 48 times two sets. INPATIENT MEDICATIONS: He received oral and IV potassium supplementation. Primary Team stopped the Ceftriaxone and the Octreotide. He was started on Amlodipine 10 mg p.o. daily and Spironolactone 12.5 mg p.o. daily. Primary Team also gave him Chlorthalidone 25 mg p.o. times one. PROBLEMS: 1. Acute kidney injury on chronic kidney disease stage 3B his creatinine has recovered to baseline. This is the best renal function he appears to have on available old labs. He is polyuric at present and autodiuresing. He made almost 4 liters of urine in the past 24 hours and thus far today he has already made more than 4 liters of urine. He is total body potassium deplete and he needs aggressive potassium supplementation. I am also starting him on Spironolactone. His Godinez catheter is being discontinued. 2. Metabolic alkalosis - The patient presented initially with high anion gap metabolic acidosis related to alcohol induced lactic acidosis and ketoacidosis. That issue resolved and now the patient is significantly alkalotic with serum bicarbonate of 38 on the latest chemistry. I think most likely this is in compensation for underlying respiratory acidosis. His last blood gas showed a pco2 of 55. 3. Hypervolemic hyponatremia - The patient is chronically hyponatremic and it is likely related to alcoholism and also chronic thiazine diuretic use as an outpatient. I would keep him off thiazides as they can worsen hyponatremia. Lasix and Spironolactone will probably be a better combination for him. His sodium levels are expected to improve with his auto diuresing and correction of volume status. 4. Hypokalemia - This patient is total body potassium deplete as evidenced by the fact that his potassium levels were low even when he was admitted with a high anion gap metabolic acidosis. He needs aggressive supplementation and he is started on Spironolactone. I would keep him off of Dyazide at present until potassium is corrected. 5. Hypomagnesemia he is receiving IV and oral supplementation. It is improving. 6. Hypertension okay to continue Amlodipine. We will hold Chlorthalidone in view of chronic hyponatremia and total body potassium depletion and also in view of his polyuria.
[2020-06-15] VITALS (9 sets, daily range): BP systolic 115–166; BP diastolic 77–94
[2020-06-15 05:15] LABS: BASO % 0.1 % (0.0-1.0); EOS % 0.4 % (0.0-3.0); HEMATOCRIT 41.1 % (42.0-52.0); HEMOGLOBIN 13.5 g/dl (13.5-17.5); LYMPH # 0.9 10^3/uL (1.5-5.0); LYMPH % 10.7 % (24.0-44.0); MEAN CORPUSCULAR HEMOGLOBIN 31.5 pg (27.0-33.0); MEAN CORPUSCULAR HGB CONC 32.8 g/dl (32.0-36.5); MONO # 0.4 10^3/uL (0.0-0.8); MONO % 4.3 % (0.0-5.0); NEUTROPHILS # 7.1 10^3/uL (1.5-8.5); NEUTROPHILS % 83.9 % (36.0-66.0); RED BLOOD COUNT 4.28 10^6/uL (4.30-6.10); WHITE BLOOD COUNT 8.4 10^3/uL (4.0-10.0)
[2020-06-15 05:17] LABS: PLATELET COUNT, AUTOMATED 82 10^3/uL (150-450)
[2020-06-15 05:48] LABS: ALBUMIN 3.1 GM/DL (3.2-5.2); BILIRUBIN,TOTAL 1.1 MG/DL (0.2-1.0); CREATININE FOR GFR 1.3 MG/DL (0.70-1.30); GLOMERULAR FILTRATION RATE 58.8 (>49); MAGNESIUM LEVEL 1.8 MG/DL (1.8-2.4); POTASSIUM SERUM 3.2 MEQ/L (3.5-5.1); TOTAL PROTEIN 6.7 GM/DL (6.4-8.2)
[2020-06-15] MEDS: SUCRALFATE SUSP 1GM/10ML UD PO SCH ×4 (06:29→23:23)
[2020-06-15] MEDS: SLF 3 ML SYR IV SCH ×3 (06:29→22:29)
[2020-06-15] MEDS: POTASSIUM CHLORIDE 10 MEQ SR TABLET PO SCH ×2 (07:05→08:53)
[2020-06-15] MEDS: THIAMINE 100 MG TAB PO SCH (08:51)
[2020-06-15] MEDS: amLODIPine 10 MG TAB PO SCH (08:51)
[2020-06-15] MEDS: MULTIVITAMINS/MINERALS THERAP 1 TAB PO SCH (08:51)
[2020-06-15] MEDS: FOLIC ACID 1 MG TAB PO SCH (08:51)
[2020-06-15] MEDS: SPIRONOLACTONE 12.5MG PER 1/2 TABLET PO SCH (08:52)
[2020-06-15] MEDS: HumaLOG INSULIN (NovoLOG) PER UNIT SC SCH ×4 (08:52→21:00)
[2020-06-15] MEDS: METOPROLOL TART 25 MG TABLET PO SCH ×3 (08:52→22:29)
[2020-06-15] MEDS: PANTOPRAZOLE 40MG VIAL (C9113 PER 1) IV SCH ×2 (08:52→22:27)
[2020-06-15] MEDS ORDERED: CHLORTHALIDONE 25 MG TAB PO SCH (09:00)
[2020-06-15] MEDS ORDERED: FUROSEMIDE 40MG/4ML VIAL (J1940) IV SCH (11:00)
--- NOTE | 2020-06-15 11:00 | IPNPDOC ---
Text Note Date of Service The patient was seen on 06/15/20. NOTE Subjective: No any acute events overnight. Patient denies fever, chills, nausea, vomiting or diarrhea dysuria. Patient continues to have shortness of breath requiring 2 L of oxygen via nasal cannula Objective: GENERAL APPEARANCE: Morbidly obese male HEENT: no scleral icterus, plus JVD, EOMI CARDIOVASCULAR: S1S2 LUNGS: Mild bilateral crackles at the base ABDOMEN: Obese, nontender MUSCULOSKELETAL: no cyanosis, no swelling INTEGUMENT: no generalized palor NEUROLOGICAL: cranial nerve function from 2-12 intact intact, follows commands, speech not dysarthric Assessment/Plan Patient is 65 years old male with past medical history of EtOH abuse, liver cirrhosis, atrial fibrillation on Xarelto presented hospital with coffee-ground emesis and black stool. Patient stated that for past 2 days he heavily drinking hard liqueur and he developed black stool with multiple episodes of vomiting. Of note patient was hospitalized in January 2020 with the same symptoms, EGD was done and showed Acute gastritis with hemorrhage. Clip (MR conditional) was placed. In ER patient was found to have atrial fibrillation with rapid ventricular rate, hemoglobin 13.9, leukocytes count 14.5, blood gas showed pH is 7.09, HCO3 9.5, anion gap 34, lactic acid 21. CT abdomen pelvis showed tatus post bilateral hip arthroplasty. Fatty infiltration of the liver. Nodular liver contour consistent with cirrhosis with 3 cannulation of the umbilical vein. Diverticulosis of the sigmoid colon mural thickening question early diverticulitis. CT chest showed Extensive vascular calcification including coronary artery vascular calcification. Mild cardiac enlargement Problems Metabolic acidosis Resolved Patient developed lactic acidosis non-hypoxic, most likely secondary to alcoholic ketoacidosis Patient received Banana bag and bicarbonate with positive effect. ABG markedly improved Acute hypoxemic respiratory failure Patient requires 2-3 L of oxygen via nasal cannula Most likely due to volume overload, BNP over 3000 Started Lasix IV 40 mg twice a day Echo Cardiac diet Atrial fibrillation with RVR Heart rate under control Lopressor IV with parameters I increased her dose of Metoprolol PO to 25 mg 3 times a day telemetry Anticoagulation on hold due to recent GI bleed Alcohol abuse [facility] GI bleed Patient reported black stool and hematemesis In January of 2020 pt was diagnosed with Acute gastritis with hemorrhage. Clip (MR conditional) was placed PPI Hemoglobin stable H&H every 6 hours I talked to Dr. Kee he recommended to discontinue antibiotic therapy and octreotide, no evidence of varices in previous EGD Liver cirrhosis Follow-up with GI in the outpatient settings Hypervolemic Hyponatremia Improved Most likely secondary to aggressive IV fluid replacement Bicarbonate stopped, started IV normal saline Hypokalemia Replaced Hypertension Continue home medications VS,Fishbone, I+O VS, Fishbone, I+O Laboratory Tests 06/14/20 12:47 06/15/20 04:53 Vital Signs Date Time Temp Pulse Resp B/P (MAP) Pulse Ox O2 Delivery O2 Flow Rate FiO2 06/15/20 08:52 100 131/85 06/15/20 08:00 3.0 06/15/20 07:35 97.6 20 94 Nasal Cannula I&O- Last 24 Hours up to 6 AM 06/15/20 06:00 Intake Total 3171 ml Output Total 4925 ml Balance -1754 ml AMERICO DENIS DO Jun 15, 2020 11:00
[2020-06-15] MEDS ORDERED: POTASSIUM CHLORIDE 10 MEQ SR TABLET PO ONE (11:15)
[2020-06-15] MEDS: MAGNESIUM GLUCONATE 500 MG TAB PO SCH ×2 (11:40→22:28)
[2020-06-15] MEDS: FUROSEMIDE 40MG/4ML VIAL (J1940) IV SCH ×2 (11:40→16:57)
[2020-06-15] MEDS ORDERED: KCL 10MEQ/100ML SWI (KRUN) 10 MEQ in IV 1 EA IV ONE (12:00)
[2020-06-15 13:18] LABS: CALCIUM LEVEL 8.3 MG/DL (8.8-10.2); CREATININE FOR GFR 1.34 MG/DL (0.70-1.30); GLOMERULAR FILTRATION RATE 56.8 (>49); POTASSIUM SERUM 3.7 MEQ/L (3.5-5.1)
[2020-06-15 18:28] LABS: CREATININE FOR GFR 1.45 MG/DL (0.70-1.30); GLOMERULAR FILTRATION RATE 51.8 (>49); POTASSIUM SERUM 3.7 MEQ/L (3.5-5.1)
[2020-06-15] MEDS: zolPIDEM TARTRATE 5 MG TAB PO SCH (22:27)
--- NOTE | 2020-06-15 22:59 | IPN ---
NEPHROLOGY PROGRESS NOTE DATE: 06/15/2020 SUBJECTIVE: The patient was seen and examined this morning at the bedside. He complains of back pain. He is upset that is opioid was discontinued outpatient. He tells me that he was medicating with alcohol and is very frustrated by his inability to get a chronic opioid prescription. He denies any chest pain, nausea, vomiting or diarrhea. He reports that he has no shortness of breath as long as he is not exerting himself. PHYSICAL EXAMINATION: VITAL SIGNS: Temperature 98.4, pulse 84, respiratory rate 20, blood pressure 131/77, saturating 92% on 3 liters nasal cannula. INTAKE AND OUTPUT: Intake yesterday was 2500. Urine output yesterday was 5300, net negative 2700. Weight in the bed scale today is not recorded. GENERAL APPEARANCE: The patient is seen lying in bed, morbidly obese male, barrel chest, in no apparent distress. HEENT: The extraocular muscles are intact. Tongue is moist. NECK: Supple. Jugular veins are elevated. HEART: Regular, S1, S2. There is no leg edema. LUNGS: Diminished breath sounds that are distant bilaterally with prolonged expiration. ABDOMEN: Very obese and nontender. NEUROLOGICAL: He is oriented x3. No focal deficit. SKIN: Dry and normal temperature. No pallor. LABORATORY STUDIES: White count 8.4, hemoglobin 13.5, platelet count 82. Sodium 135, potassium 3.7, bicarbonate 41, BUN 14, creatinine 1.4. INPATIENT MEDICATIONS: His Spironolactone was increased to 25 mg daily. Primary Team started Lasix 40 mg IV twice daily along with Lopressor 25 mg p.o. three times daily. PROBLEMS: 1. Metabolic alkalosis serum bicarbonate is greater than 40. It is most likely in compensation for a chronic respiratory acidosis but there is no blood caths the past couple of days to confirm and his metabolic alkalosis may also be secondary to his significant polyuria. Primary Service has also started Lasix which tends to cause increase in alkalemia. 2. Hypervolemic hyponatremia his sodium levels are coming up. He was polyuric even before loop diuretic was started. His sodium will continue to correct as he diuresis. 3. Hypokalemia He is on Spironolactone 25 mg daily. He will need aggressive potassium supplementation to keep up with his urinary potassium losses as he diureses. 4. Hypoxemia the patient is requiring supplemental oxygen. He may have COPD underlying. I would suspect the same given his significant metabolic alkalosis. There is also mild to moderate fluid overload. He is vigorously diuresing. Echocardiogram is pending. Primary Team started Lasix. I suggest to increase the Spironolactone as well to keep up with his potassium losses. 5. Status post acute kidney injury - renal function has recovered back to baseline. 6. Disposition - renal function has recovered to baseline. Primary Service is managing diuretics. Nephrology will sign off.
[2020-06-16] VITALS (10 sets, daily range): BP systolic 127–139; BP diastolic 70–97
[2020-06-16 00:45] LABS: BLOOD UREA NITROGEN 16 MG/DL (7-18); CALCIUM LEVEL 8.6 MG/DL (8.8-10.2); CARBON DIOXIDE LEVEL 50 MEQ/L (21-32); CHLORIDE LEVEL 86 MEQ/L (98-107); CREATININE FOR GFR 1.47 MG/DL (0.70-1.30); GLUCOSE, FASTING 142 MG/DL (70-100); POTASSIUM SERUM 3.7 MEQ/L (3.5-5.1); SODIUM LEVEL 134 MEQ/L (136-145)
[2020-06-16 06:13] LABS: BASO % 0.2 % (0.0-1.0); EOS # 0.2 10^3/uL (0.0-0.5); EOS % 1.8 % (0.0-3.0); HEMATOCRIT 42.3 % (42.0-52.0); HEMOGLOBIN 13.2 g/dl (13.5-17.5); LYMPH # 1.3 10^3/uL (1.5-5.0); LYMPH % 15.5 % (24.0-44.0); MEAN CORPUSCULAR HEMOGLOBIN 30.6 pg (27.0-33.0); MEAN CORPUSCULAR HGB CONC 31.2 g/dl (32.0-36.5); MEAN CORPUSCULAR VOLUME 97.9 fl (80.0-96.0); MONO # 0.5 10^3/uL (0.0-0.8); NEUTROPHILS # 6.2 10^3/uL (1.5-8.5); NEUTROPHILS % 75.6 % (36.0-66.0); PLATELET COUNT, AUTOMATED 77 10^3/uL (150-450); RED BLOOD COUNT 4.32 10^6/uL (4.30-6.10); WHITE BLOOD COUNT 8.2 10^3/uL (4.0-10.0)
[2020-06-16] MEDS: SLF 3 ML SYR IV SCH ×3 (06:43→21:46)
[2020-06-16] MEDS: SUCRALFATE SUSP 1GM/10ML UD PO SCH ×3 (06:43→17:16)
[2020-06-16 06:58] LABS: BILIRUBIN,TOTAL 1.1 MG/DL (0.2-1.0); CALCIUM LEVEL 8.2 MG/DL (8.8-10.2); CREATININE FOR GFR 1.35 MG/DL (0.70-1.30); GLOMERULAR FILTRATION RATE 56.3 (>49); MAGNESIUM LEVEL 1.6 MG/DL (1.8-2.4); POTASSIUM SERUM 3.5 MEQ/L (3.5-5.1); TOTAL PROTEIN 6.6 GM/DL (6.4-8.2)
[2020-06-16] MEDS ORDERED: MAG SULF 1GM/100ML (MAG RUN) 1 GM in IV 1 EA IV ONE (08:00)
[2020-06-16] MEDS: PANTOPRAZOLE 40MG VIAL (C9113 PER 1) IV SCH ×2 (08:34→21:45)
[2020-06-16] MEDS: MAGNESIUM GLUCONATE 500 MG TAB PO SCH ×2 (08:34→21:45)
[2020-06-16] MEDS: HumaLOG INSULIN (NovoLOG) PER UNIT SC SCH ×4 (08:34→21:00)
[2020-06-16] MEDS: SPIRONOLACTONE 25 MG TAB PO SCH (08:35)
[2020-06-16] MEDS: POTASSIUM CHLORIDE 10 MEQ SR TABLET PO SCH (08:35)
[2020-06-16] MEDS: FUROSEMIDE 40MG/4ML VIAL (J1940) IV SCH ×2 (08:35→17:17)
[2020-06-16] MEDS: FOLIC ACID 1 MG TAB PO SCH (08:35)
[2020-06-16] MEDS: METOPROLOL TART 25 MG TABLET PO SCH ×3 (08:36→21:44)
[2020-06-16] MEDS: MULTIVITAMINS/MINERALS THERAP 1 TAB PO SCH (08:36)
[2020-06-16] MEDS: amLODIPine 10 MG TAB PO SCH (08:37)
--- NOTE | 2020-06-16 11:11 | IPNPDOC ---
Text Note Date of Service The patient was seen on 06/16/20. NOTE Subjective: No any acute events overnight. Patient stated that his breathing improved. Objective: GENERAL APPEARANCE: Morbidly obese male HEENT: no scleral icterus, plus JVD, EOMI CARDIOVASCULAR: S1S2 LUNGS: Mild bilateral crackles at the base ABDOMEN: Obese, nontender MUSCULOSKELETAL: no cyanosis, no swelling INTEGUMENT: no generalized palor NEUROLOGICAL: cranial nerve function from 2-12 intact intact, follows commands, speech not dysarthric Assessment/Plan Patient is 65 years old male with past medical history of EtOH abuse, liver cirrhosis, atrial fibrillation on Xarelto presented hospital with coffee-ground emesis and black stool. Patient stated that for past 2 days he heavily drinking hard liqueur and he developed black stool with multiple episodes of vomiting. Of note patient was hospitalized in January 2020 with the same symptoms, EGD was done and showed Acute gastritis with hemorrhage. Clip (MR conditional) was placed. In ER patient was found to have atrial fibrillation with rapid ventricular rate, hemoglobin 13.9, leukocytes count 14.5, blood gas showed pH is 7.09, HCO3 9.5, anion gap 34, lactic acid 21. CT abdomen pelvis showed tatus post bilateral hip arthroplasty. Fatty infiltration of the liver. Nodular liver contour consistent with cirrhosis with 3 cannulation of the umbilical vein. Diverticulosis of the sigmoid colon mural thickening question early diverticulitis. CT chest showed Extensive vascular calcification including co ronary artery vascular calcification. Mild cardiac enlargement Problems Metabolic acidosis Resolved Patient developed lactic acidosis non-hypoxic, most likely secondary to alcoholic ketoacidosis Patient received Banana bag and bicarbonate with positive effect. ABG markedly improved Acute hypoxemic respiratory failure Patient requires 2-3 L of oxygen via nasal cannula Most likely due to volume overload, BNP over 3000 Started Lasix IV 40 mg twice a day Await Echo Cardiac diet Atrial fibrillation with RVR Heart rate under control Lopressor IV with parameters I increased her dose of Metoprolol PO to 25 mg 3 times a day telemetry Anticoagulation on hold due to recent GI bleed Alcohol abuse [facility] GI bleed Patient reported black stool and hematemesis In January of 2020 pt was diagnosed with Acute gastritis with hemorrhage. Clip (MR conditional) was placed PPI Hemoglobin stable H&H every 6 hours I talked to Dr. Kee he recommended to discontinue antibiotic therapy and octreotide, no evidence of varices in previous EGD Liver cirrhosis Follow-up with GI in the outpatient settings Hypervolemic Hyponatremia Improved Most likely secondary to aggressive IV fluid replacement Bicarbonate stopped, started IV normal saline Hypokalemia Replaced Hypertension Continue home medications VANDANA Resolved Kidney function at baseline Secondary to dehydration VS,Fishbone, I+O VS, Fishbone, I+O Laboratory Tests 06/15/20 11:59 06/15/20 17:47 06/15/20 23:56 06/16/20 05:27 Vital Signs Date Time Temp Pulse Resp B/P (MAP) Pulse Ox O2 Delivery O2 Flow Rate FiO2 06/16/20 08:37 90 135/89 06/16/20 08:00 1.0 06/16/20 07:51 97.7 18 97 Nasal Cannula I&O- Last 24 Hours up to 6 AM 06/16/20 06:00 Intake Total 1020 ml Output Total 3350 ml Balance -2330 ml AMERICO DENIS DO Jun 16, 2020 11:11
[2020-06-16] MEDS: PERCOCET 5MG/325MG TAB PO PRN ×3 (12:32→21:43)
[2020-06-16 13:00] LABS: BLOOD UREA NITROGEN 19 MG/DL (7-18); CALCIUM LEVEL 8.3 MG/DL (8.8-10.2); CARBON DIOXIDE LEVEL 51 MEQ/L (21-32); CHLORIDE LEVEL 85 MEQ/L (98-107); CREATININE FOR GFR 1.34 MG/DL (0.70-1.30); GLOMERULAR FILTRATION RATE 56.8 (>49); GLUCOSE, FASTING 106 MG/DL (70-100); POTASSIUM SERUM 3.7 MEQ/L (3.5-5.1); SODIUM LEVEL 135 MEQ/L (136-145)
--- NOTE | 2020-06-16 16:58 | CR.PDOC ---
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 He was admitted twice in the pat year with alcohol related medical issues, most recently with metabolic acidosis. ALLERGIES: Please see below. HOME MEDICATIONS: Please see below. PAST MEDICAL HISTORY: 1. cirrhosis 2. atrial fib 3. CAD 4.stage 3-4 CKD, creatinine 1-5-1.9 5. morbid obsity 6. sleep apnea, has CPAP does not wear 7. COPD PAST SURGICAL HISTORY: 1. bilateral knee replacements 2. bilateral hip replacements FAMILY HISTORY: Father: d. old age Mother: d. 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 States he did not drink excessively until the past year. Illicit drug use: denies IV drug use: denies Other relevant social factors: served in [employer]; was quite evasive about his experience, stating "I don't want to talk about that". Stated he served "all over" and was in the for 2 years starting at age 18 REVIEW OF SYSTEMS: CONSTITUTIONAL: denie fevers, chills HEENT: no vision changes, no dysphagia CARDIOVASCULAR: A fib RESPIRATORY: dyspnea, wheezing GENITOURINARY: denies dysuria MUSCULOSKELETAL: chronic back pain reports history of lumbar spondylosis, nerve root compression GASTROINTESTINAL: history of black tarry stools improved since admission SKIN: tanner lumps/bumps NEUROLOGICAL: denies tremors, headaches PSYCHIATRIC: denies depression/anxiety ENDOCRINE: denies thirst or excessive hunger HEMATOLOGIC/LYMPHATIC: denies swollen or painful nodes ALLERGIC/IMMUNOLOGIC: na PHYSICAL EXAMINATION: VITAL SIGNS: Please see below. GENERAL APPEARANCE: morbidly obese male in no distress HEENT: pharynx clear RESPIRATORY: scattered wheezes, occasional dyspnea when not seated upright CARDIOVASCULAR: irregular ABDOMEN: obese, +BS. no guarding or rebound EXTREMITIES: no clubbing or edema NEUROLOGICAL: no tremor, good motor strength, oriented x 3 PSYCHIATRIC: appears euthymic LABORATORY DATA: Please see below. ASSESSMENT/PLAN: 1. cirrhosis 2. CKD' 3. chronic nonmalignant pain I explained the purpose of [facility] for Symptom Treatment to Mr. Johnson. We discussed how his drinking behaviors limit treatment options for pain management and also will limit his life span. He expressed the desire to stop drinking alcohol and feels he can be successful with this if his back pain is managed. He was previously prescribed oxycocone/APAP 7.5/325 mg tab 1 tab po tid prn. He was presviously followed by a pain clinic in [place]. He has had spine injections that have not benefitted him in the past. I will make a follow up appointment for him in my clinic for some point in the near future; he understands he will be subjected to regular UDS, possible pill counts, etc and he stated that was fine with him. He understands the goal for his pain management is to get his OTHER medical conditions in better control. I will contact airport planner tomorrow regarding his expected discharge from [facility]. (The patient stated he thinks it will be in 2 to 3 days ). Vital Signs/I&O Vital Signs Date Time Temp Pulse Resp B/P (MAP) Pulse Ox O2 Delivery O2 Flow Rate FiO2 06/16/20 15:51 97.3 79 18 139/97 (111) 93 Nasal Cannula 1.0 I&O- Last 24 Hours up to 6 AM 06/16/20 06:00 Intake Total 1020 ml Output Total 3350 ml Balance -2330 ml Laboratory Data Labs 24H Laboratory Tests 2 06/15/20 17:47: Anion Gap 4L, Glomerular Filtration Rate 51.8, Calcium Level 8.0L 06/15/20 22:14: Bedside Glucose (Misc Panel) 135H 06/15/20 23:56: Anion Gap , Glomerular Filtration Rate 51.0, Calcium Level 8.6L 06/16/20 05:27: Anion Gap 1L, Glomerular Filtration Rate 56.3, Calcium Level 8.2L, Immature Granulocyte % (Auto) 0.9, Neutrophils (%) (Auto) 75.6H, Lymphocytes (%) (Auto) 15.5L, Monocytes (%) (Auto) 6.0H, Eosinophils (%) (Auto) 1.8, Basophils (%) (Auto) 0.2, Neutrophils # (Auto) 6.2, Lymphocytes # (Auto) 1.3L, Monocytes # (Auto) 0.5, Eosinophils # (Auto) 0.2, Basophils # (Auto) 0.0, Nucleated Red B lood Cells % (auto) 0.0, Immature Platelet Fraction 8.8, Magnesium Level 1.6L, Total Bilirubin 1.1H, Aspartate Amino Transf (AST/SGOT) 257H, Alanine Aminotransferase (ALT/SGPT) 136H, Alkaline Phosphatase 89, Total Protein 6.6, Albumin 3.0L, Albumin/Globulin Ratio 0.8 06/16/20 11:48: Anion Gap , Glomerular Filtration Rate 56.8, Calcium Level 8.3L 06/16/20 12:20: Bedside Glucose (Misc Panel) 130H CBC/BMP Laboratory Tests 06/15/20 17:47 06/15/20 23:56 06/16/20 05:27 06/16/20 11:48 Microbiology Microbiology 06/12/20 Blood Culture - Preliminary, Resulted No Growth after 72 hours. All specime... 06/12/20 Blood Culture - Preliminary, Resulted No Growth after 72 hours. All specime... Allergies Coded Allergies: No Known Allergies (Unverified , 04/13/19) Home Medications Scheduled Allopurinol (Allopurinol) 100 Mg Tablet, 100 MG PO DAILY for 30 Days, #14 Amlodipine Besylate (Amlodipine Besylate) 10 Mg Tablet, 10 MG PO DAILY, (Reported) Chlorthalidone (Chlorthalidone) 25 Mg Tablet, 25 MG PO DAILY, (Reported) Magnesium Gluconate (Magnesium Gluconate) 27 Mg Tablet, 500 MG PO DAILY, (Reported) Metoprolol Tartrate (Metoprolol Tartrate) 25 Mg Tablet, 25 MG PO BID, (Reported) Multivit-Min/FA/Lycopen/Lutein (Centrum Silver Tablet) 1 Each Tablet, 1 TAB PO DAILY, (Reported) Rivaroxaban (Xarelto) 15 Mg Tablet, 15 MG PO DAILY, (Reported) Zolpidem Tartrate (Zolpidem Tartrate) 10 Mg Tablet, 10 MG PO QHS, (Reported) Scheduled PRN Hydroxyzine HCl (Hydroxyzine HCl) 50 Mg Tablet, 50 MG PO QHS PRN for SLEEP, (Reported) Geni BERRY [employer] Jun 16, 2020 16:58
[2020-06-16 18:54] LABS: CALCIUM LEVEL 8.4 MG/DL (8.8-10.2); CREATININE FOR GFR 1.46 MG/DL (0.70-1.30); GLOMERULAR FILTRATION RATE 51.4 (>49); POTASSIUM SERUM 3.7 MEQ/L (3.5-5.1)
[2020-06-16] MEDS: zolPIDEM TARTRATE 5 MG TAB PO SCH (21:45)
[2020-06-17] VITALS (8 sets, daily range): BP systolic 131–167; BP diastolic 73–99
[2020-06-17] MEDS: SUCRALFATE SUSP 1GM/10ML UD PO SCH ×4 (00:01→17:00)
[2020-06-17 00:50] LABS: BLOOD UREA NITROGEN 22 MG/DL (7-18); CALCIUM LEVEL 8.9 MG/DL (8.8-10.2); CARBON DIOXIDE LEVEL 50 MEQ/L (21-32); CHLORIDE LEVEL 86 MEQ/L (98-107); GLOMERULAR FILTRATION RATE 46.3 (>49); GLUCOSE, FASTING 115 MG/DL (70-100); POTASSIUM SERUM 3.7 MEQ/L (3.5-5.1); SODIUM LEVEL 134 MEQ/L (136-145)
[2020-06-17 05:28] LABS: BASO % 0.3 % (0.0-1.0); EOS # 0.4 10^3/uL (0.0-0.5); HEMATOCRIT 42.9 % (42.0-52.0); HEMOGLOBIN 13.8 g/dl (13.5-17.5); LYMPH # 1.7 10^3/uL (1.5-5.0); LYMPH % 14.8 % (24.0-44.0); MEAN CORPUSCULAR HEMOGLOBIN 31.7 pg (27.0-33.0); MEAN CORPUSCULAR HGB CONC 32.2 g/dl (32.0-36.5); MEAN CORPUSCULAR VOLUME 98.6 fl (80.0-96.0); MONO # 0.9 10^3/uL (0.0-0.8); MONO % 7.9 % (0.0-5.0); NEUTROPHILS # 8.5 10^3/uL (1.5-8.5); NEUTROPHILS % 72.8 % (36.0-66.0); PLATELET COUNT, AUTOMATED 93 10^3/uL (150-450); RED BLOOD COUNT 4.35 10^6/uL (4.30-6.10); WHITE BLOOD COUNT 11.7 10^3/uL (4.0-10.0)
[2020-06-17 05:53] LABS: BILIRUBIN,TOTAL 1.1 MG/DL (0.2-1.0); CALCIUM LEVEL 8.5 MG/DL (8.8-10.2); CREATININE FOR GFR 1.65 MG/DL (0.70-1.30); GLOMERULAR FILTRATION RATE 44.7 (>49); MAGNESIUM LEVEL 1.6 MG/DL (1.8-2.4); POTASSIUM SERUM 4.7 MEQ/L (3.5-5.1); TOTAL PROTEIN 7.3 GM/DL (6.4-8.2)
[2020-06-17] MEDS: SLF 3 ML SYR IV SCH ×3 (06:35→21:37)
[2020-06-17] MEDS: METOPROLOL TART 25 MG TABLET PO SCH ×3 (08:33→21:36)
[2020-06-17] MEDS: MULTIVITAMINS/MINERALS THERAP 1 TAB PO SCH (08:33)
[2020-06-17] MEDS: HumaLOG INSULIN (NovoLOG) PER UNIT SC SCH ×4 (08:33→21:00)
[2020-06-17] MEDS: POTASSIUM CHLORIDE 10 MEQ SR TABLET PO SCH (08:34)
[2020-06-17] MEDS: MAGNESIUM GLUCONATE 500 MG TAB PO SCH ×2 (08:34→21:35)
[2020-06-17] MEDS: SPIRONOLACTONE 25 MG TAB PO SCH (08:34)
[2020-06-17] MEDS: FUROSEMIDE 40MG/4ML VIAL (J1940) IV SCH ×2 (08:34→16:57)
[2020-06-17] MEDS: FOLIC ACID 1 MG TAB PO SCH (08:35)
[2020-06-17] MEDS: PERCOCET 5MG/325MG TAB PO PRN ×3 (08:35→21:45)
[2020-06-17] MEDS: amLODIPine 10 MG TAB PO SCH (08:35)
[2020-06-17] MEDS: PANTOPRAZOLE 40MG VIAL (C9113 PER 1) IV SCH ×2 (08:36→21:37)
--- NOTE | 2020-06-17 08:47 | ECHO ---
DATE OF PROCEDURE: 06/15/2020 Age: 65 Gender: Male Height: 72 inches Weight: 140 kg REFERRING PHYSICIAN: Flaco Smalls DO INDICATION: Dyspnea, unspecified. MEASUREMENTS: 2D Measurements: Intraventricular septum 1.20 cm Posterior wall 1.23 cm Left ventricle diastole 5.2 cm Aortic root 3.0 cm Inferior vena cava 2.4 cm with more than 50% respiratory variation Doppler Measurements: No aortic stenosis No aortic regurgitation No mitral stenosis No mitral regurgitation Very mild tricuspid regurgitation No pulmonic regurgitation Aortic valve velocity 107 cm/s LVOT velocity 92.7 cm/s Estimated right ventricle systolic pressure 28-33 mmHg Estimated right atrial pressure of 5-10 mmHg Pulmonary artery acceleration time 127 msec MITRAL ANNULAR TISSUE DOPPLER E prime septal 9.1 cm/s, E prime lateral 13.2 cm/s DESCRIPTION: Rhythm appeared to be atrial fibrillation with controlled ventricular response. This was a technically difficult echocardiogram. The study was performed with the patient supine. This was a 2D, M-mode, color flow Doppler, and pulsed wave Doppler examination including mitral annular tissue Doppler. CONCLUSIONS: * Borderline concentric left ventricular hypertrophy. Normal regional left ventricular (LV) wall motion and wall thickening. Normal left ventricular (LV) systolic function. Left ventricular ejection fraction (LVEF) estimated to be 60% by visual assessment. Left ventricular (LV) diastolic function cannot be adequately determined due to presence of atrial fibrillation. * Visual appearance of at least moderate left atrial dilatation. * Normal right ventricle size and systolic function. Estimated right ventricle systolic pressure near the upper limits of normal to slightly elevated. Suggestive of normal central venous pressure (5-10 mmHg). * Technically difficult echocardiogram. MTDD
--- NOTE | 2020-06-17 11:02 | IPNPDOC ---
Text Note Date of Service The patient was seen on 06/17/20. NOTE Subjective: No any acute events overnight. Patient stated that his breathing improved. Objective: GENERAL APPEARANCE: Morbidly obese male HEENT: no scleral icterus, plus JVD, EOMI CARDIOVASCULAR: S1S2 LUNGS: Mild bilateral crackles at the base ABDOMEN: Obese, nontender MUSCULOSKELETAL: no cyanosis, no swelling INTEGUMENT: no generalized pallor NEUROLOGICAL: cranial nerve function from 2-12 intact intact, follows commands, speech not dysarthric Assessment/Plan Patient is 65 years old male with past medical history of EtOH abuse, liver cirrhosis, atrial fibrillation on Xarelto presented hospital with coffee-ground emesis and black stool. Patient stated that for past 2 days he heavily drinking hard liqueur and he developed black stool with multiple episodes of vomiting. Of note patient was hospitalized in January 2020 with the same symptoms, EGD was done and showed Acute gastritis with hemorrhage. Clip (MR conditional) was placed. In ER patient was found to have atrial fibrillation with rapid ventricular rate, hemoglobin 13.9, leukocytes count 14.5, blood gas showed pH is 7.09, HCO3 9.5, anion gap 34, lactic acid 21. CT abdomen pelvis showed tatus post bilateral hip arthroplasty. Fatty infiltration of the liver. Nodular liver contour consistent with cirrhosis with 3 cannulation of the umbilical vein. Diverticulosis of the sigmoid colon mural thickening question early diverticulitis. CT chest showed Extensive vascular calcification including coronary artery vascular calcification. Mild cardiac enlargement Problems Metabolic acidosis Resolved Patient developed lactic acidosis non-hypoxic, most likely secondary to alcoholic ketoacidosis Patient received Banana bag and bicarbonate with positive effect. ABG markedly improved Acute hypoxemic respiratory failure Patient requires 2-3 L of oxygen via nasal cannula Most likely due to volume overload, BNP over 3000 Started Lasix IV 40 mg twice a day Echo Borderline concentric left ventricular hypertrophy. Normal regional left ventricular (LV) wall motion and wall thickening. Normal left ventricular (LV) systolic function. Left ventricular ejection fraction (LVEF) estimated to be 60% by visual assessment. Left ventricular (LV) diastolic function cannot be adequately determined due to presence of atrial fibrillation. Visual appearance of at least moderate left atrial dilatation. Normal right ventricle size and systolic function. Estimated right ventricle systolic pressure near the upper limits of normal to slightly elevated. Suggestive of normal central venous pressure (5-10 mmHg). Technically difficult echocardiogram. CHF exacerbation Diastolic Most likely due to fluid overload secondary to aggressive treatment of metabolic acidosis Cardiac diet Atrial fibrillation with RVR Heart rate under control Lopressor IV with parameters I increased her dose of Metoprolol PO to 25 mg 3 times a day telemetry Alcohol abuse [facility] GI bleed Patient reported black stool and hematemesis In January of 2020 pt was diagnosed with Acute gastritis with hemorrhage. Clip (MR conditional) was placed PPI Hemoglobin stable H&H every 6 hours I talked to Dr. Kee he recommended to discontinue antibiotic therapy and octreotide, no evidence of varices in previous EGD Liver cirrhosis Follow-up with GI in the outpatient settings Hypervolemic Hyponatremia Improved Most likely secondary to aggressive IV fluid replacement Bicarbonate stopped, started IV normal saline Hypokalemia Replaced Hypertension Continue home medications VANDANA Resolved Kidney function at baseline Secondary to dehydration Atrial fibrillation Restarted oral anticoagulation. No signs of bleeding. VS,Fishbone, I+O VS, Fishbone, I+O Laboratory Tests 06/16/20 11:48 06/16/20 17:47 06/16/20 23:41 06/17/20 05:03 Vital Signs Date Time Temp Pulse Resp B/P (MAP) Pulse Ox O2 Delivery O2 Flow Rate FiO2 06/17/20 08:35 20 Nasal Cannula 2.0 06/17/20 08:35 99 137/99 06/17/20 07:46 98.2 90 I&O- Last 24 Hours up to 6 AM 06/17/20 06:00 Intake Total 1740 ml Output Total 2000 ml Balance -260 ml AMERICO DENIS DO Jun 17, 2020 11:02
[2020-06-17] MEDS: IPRATROPIUM 0.5MG/ALBUTEROL 2.5MG INH SOL UD 3ML (DUONEB) NEB SCH ×3 (11:22→18:09)
[2020-06-17 13:16] LABS: CALCIUM LEVEL 9.1 MG/DL (8.8-10.2); CREATININE FOR GFR 1.57 MG/DL (0.70-1.30); GLOMERULAR FILTRATION RATE 47.3 (>49); POTASSIUM SERUM 3.7 MEQ/L (3.5-5.1)
[2020-06-17] MEDS: RIVAROXABAN 15 MG TAB (XARELTO) PO SCH (13:18)
[2020-06-17] MEDS ORDERED: HEPARIN SOD (PORCINE) 5000UNITS/ML 1ML VIAL/SYRINGE SQ SCH (14:00)
[2020-06-17 18:43] LABS: BLOOD UREA NITROGEN 27 MG/DL (7-18); CALCIUM LEVEL 8.8 MG/DL (8.8-10.2); CARBON DIOXIDE LEVEL 53 MEQ/L (21-32); CHLORIDE LEVEL 83 MEQ/L (98-107); CREATININE FOR GFR 1.61 MG/DL (0.70-1.30); GLOMERULAR FILTRATION RATE 45.9 (>49); GLUCOSE, FASTING 177 MG/DL (70-100); POTASSIUM SERUM 3.5 MEQ/L (3.5-5.1); SODIUM LEVEL 130 MEQ/L (136-145)
[2020-06-17] MEDS: zolPIDEM TARTRATE 5 MG TAB PO SCH (21:35)
[2020-06-18] MEDS: SUCRALFATE SUSP 1GM/10ML UD PO SCH ×2 (00:44→05:52)
[2020-06-18] MEDS: IPRATROPIUM 0.5MG/ALBUTEROL 2.5MG INH SOL UD 3ML (DUONEB) NEB SCH ×4 (02:46→11:34)
[2020-06-18] MEDS: SLF 3 ML SYR IV SCH (05:52)
[2020-06-18 06:00] VITALS: BP 124/75
[2020-06-18 06:33] LABS: BASO % 0.3 % (0.0-1.0); EOS # 0.3 10^3/uL (0.0-0.5); EOS % 3.7 % (0.0-3.0); HEMATOCRIT 42.8 % (42.0-52.0); HEMOGLOBIN 13.5 g/dl (13.5-17.5); LYMPH # 1.7 10^3/uL (1.5-5.0); LYMPH % 19.2 % (24.0-44.0); MEAN CORPUSCULAR HEMOGLOBIN 31.8 pg (27.0-33.0); MEAN CORPUSCULAR HGB CONC 31.5 g/dl (32.0-36.5); MEAN CORPUSCULAR VOLUME 100.9 fl (80.0-96.0); MONO # 0.7 10^3/uL (0.0-0.8); MONO % 8.1 % (0.0-5.0); NEUTROPHILS # 6.1 10^3/uL (1.5-8.5); NEUTROPHILS % 67.7 % (36.0-66.0); RED BLOOD COUNT 4.24 10^6/uL (4.30-6.10); WHITE BLOOD COUNT 8.9 10^3/uL (4.0-10.0)
[2020-06-18 06:43] LABS: PLATELET COUNT, AUTOMATED 93 10^3/uL (150-450)
[2020-06-18 07:46] LABS: ALBUMIN 3.3 GM/DL (3.2-5.2); BILIRUBIN,TOTAL 0.8 MG/DL (0.2-1.0); CALCIUM LEVEL 8.8 MG/DL (8.8-10.2); CREATININE FOR GFR 1.58 MG/DL (0.70-1.30); GLOMERULAR FILTRATION RATE 46.9 (>49); MAGNESIUM LEVEL 1.6 MG/DL (1.8-2.4); POTASSIUM SERUM 3.4 MEQ/L (3.5-5.1); TOTAL PROTEIN 6.9 GM/DL (6.4-8.2)
[2020-06-18] MEDS: RIVAROXABAN 15 MG TAB (XARELTO) PO SCH (08:26)
[2020-06-18] MEDS: PANTOPRAZOLE 40MG VIAL (C9113 PER 1) IV SCH (08:26)
[2020-06-18] MEDS: FUROSEMIDE 40MG/4ML VIAL (J1940) IV SCH (08:26)
[2020-06-18] MEDS: FOLIC ACID 1 MG TAB PO SCH (08:27)
[2020-06-18] MEDS: SPIRONOLACTONE 25 MG TAB PO SCH (08:27)
[2020-06-18] MEDS: MAGNESIUM GLUCONATE 500 MG TAB PO SCH (08:27)
[2020-06-18] MEDS: POTASSIUM CHLORIDE 10 MEQ SR TABLET PO SCH (08:32)
[2020-06-18 08:35] VITALS: BP 149/87
[2020-06-18] MEDS: MULTIVITAMINS/MINERALS THERAP 1 TAB PO SCH (08:35)
[2020-06-18] MEDS: amLODIPine 10 MG TAB PO SCH (08:35)
[2020-06-18] MEDS: METOPROLOL TART 25 MG TABLET PO SCH (08:35)
[2020-06-18] MEDS: PERCOCET 5MG/325MG TAB PO PRN (08:37)
[2020-06-18] MEDS: HumaLOG INSULIN (NovoLOG) PER UNIT SC SCH (08:38)
[2020-06-18] MEDS ORDERED: ALDA25TA2 PO (10:12)
[2020-06-18] MEDS ORDERED: FOLI1TAB11 PO (10:12)
[2020-06-18] MEDS ORDERED: CARA1TAB6 PO (10:12)
[2020-06-18] MEDS ORDERED: METO1TAB87 PO (10:12)
[2020-06-18] MEDS ORDERED: OXYC1TAB15 PO (10:12)
[2020-06-18] MEDS ORDERED: KLOR10TA76 PO (10:12)
[2020-06-18] MEDS ORDERED: FURO40TA2 PO (10:12)
--- NOTE | 2020-06-18 20:47 | DS.PDOC ---
Discharge Summary General Date of Admission Jun 12, 2020 at 16:37 Date of Discharge 06/18/2020 Discharge Summary PRIMARY CARE PHYSICIAN: Natanael Rosales MD ATTENDING AT TIME OF DISCHARGE: Dr. Nevin Oliver, DO DISCHARGE DIAGNOS(E)S: Upper GI bleed Acute hypoxemic respiratory failure Acute diastolic CHF decompensation Metabolic acidosis Atrial fibrillation with rapid ventricular response Leukocytosis Alcohol abuse Liver cirrhosis Hypervolemic hyponatremia Hypokalemia Hypertension Acute kidney injury HPI & HOSPITAL COURSE: 65-year-old male presented to the hospital with coffee-ground emesis and black stool. The patient reports that since being discharged from the pain clinic he has been self-medicating his pain with alcohol for the past few days. He had multiple episodes of vomiting. He had a similar hospitalization in January 2020 where EGD showed acute gastritis with hemorrhage. Upon this admission he was found to have atrial fibrillation with RVR, fluid overload, metabolic acidosis (likely secondary to alcoholic ketoacidosis). Patient was treated with diuresis for fluid overload and acute decompensation of CHF, which also helped resolved his acute acute hypoxemic respiratory failure, metabolic acidosis, and hypervolemic hyponatremia. His home dose of metoprolol tartrate was increased to 3 times a day which was sufficient to keep his heart rate under control. Previous EGD did not show varices, therefore antibiotic therapy and octreotide is not necessary for his GI bleed. This was treated conservatively with Carafate. H&H is stable, bleeding appears to have stopped, he was restarted on oral anticoagulation. The patient has shown remarkable improvement, and does appear to be stable for discharge at this time. Regarding ongoing pain management, he was seen and evaluated by Geni Mejia NP while inpatient who has agreed to take him on her clinic. The patient is agreeable to this plan, and feels that if his pain is adequately controlled he will not need to drink alcohol. PHYSICAL EXAMINATION ON DISCHARGE: GENERAL: Awake, alert, is in no acute distress at this time. CARDIOVASCULAR EXAMINATION: Regular rate and rhythm, with no rubs, gallops, or murmur. RESPIRATORY EXAMINATION: Clear to auscultation bilaterally with no wheezes, rales, or rhonchi. ABDOMINAL EXAMINATION: Soft, nontender, nondistended. Bowel sounds present. EXTREMITIES: No clubbing or edema noted. 2+ pulses in the radial bilaterally. DISPOSITION: Home DISCHARGE INSTRUCTIONS: Follow-up with her primary care physician within 7-14 days. He will also need to be seen at the pain clinic within 7 days, as I have only prescribe 7 days worth of oxycodone. Recommend cardiac diet/DASH diet, limit sodium intake. Activity as tolerated. If symptoms return, or if you experience worsening of your symptoms, please call your doctor or return to the emergency department. DISCHARGE MEDICATIONS: Continue taking from home: Allopurinol 100 mg daily Amlodipine 10 mg daily Chlorthalidone 25 mg daily Hydroxyzine 50 mg by mouth daily at bedtime as needed for sleep Magnesium 500 mg by mouth daily Multivitamin 1 tablet daily Xarelto 15 mg daily Zolpidem 10 mg by mouth daily at bedtime New Medications: Folic acid 1 mg by mouth daily Furosemide 1 tablet by mouth daily Metoprolol tartrate by mouth 3 times a day (this was increased from his prior home dose of twice a day) Oxycodone/acetaminophen 7.5-325 by mouth 3 times a day Potassium chloride 40 mEq by mouth daily Spironolactone 25 mg by mouth daily Carafate 1 tablet by mouth 4 times a day Vital Signs/I&Os Vital Signs Date Time Temp Pulse Resp B/P (MAP) Pulse Ox O2 Delivery O2 Flow Rate FiO2 06/18/20 09:07 17 Room Air 06/18/20 08:37 96 06/18/20 08:35 78 149/87 06/18/20 06:00 97.9 2.0 I&O- Last 24 Hours up to 6 AM 06/18/20 06:00 Intake Total 960 ml Output Total 2200 ml Balance -1240 ml Laboratory Data Labs 24H Laboratory Tests 2 06/18/20 06:02: Immature Granulocyte % (Auto) 1.0, Neutrophils (%) (Auto) 67.7H, Lymphocytes (%) (Auto) 19.2L, Monocytes (%) (Auto) 8.1H, Eosinophils (%) (Auto) 3.7H, Basophils (%) (Auto) 0.3, Neutrophils # (Auto) 6.1, Lymphocytes # (Auto) 1.7, Monocytes # (Auto) 0.7, Eosinophils # (Auto) 0.3, Basophils # (Auto) 0.0, Nucleated Red Blood Cells % (auto) 0.0, Immature Platelet Fraction 11.9H, Anion Gap 2L, Glomerular Filtration Rate 46.9L, Calcium Level 8.8, Magnesium Level 1.6L, Total Bilirubin 0.8, Aspartate Amino Transf (AST/SGOT) 168H, Alanine Aminotransferase (ALT/SGPT) 108H, Alkaline Phosphatase 106, Total Protein 6.9, Albumin 3.3, Albumin/Globulin Ratio 0.9 CBC/BMP Laboratory Tests 06/18/20 06:02 Microbiology Microbiology 06/12/20 Blood Culture - Final, Complete NO GROWTH AFTER 5 DAYS 06/12/20 Blood Culture - Final, Complete NO GROWTH AFTER 5 DAYS Discharge Medications Scheduled Allopurinol (Allopurinol) 100 Mg Tablet, 100 MG PO DAILY Amlodipine Besylate (Amlodipine Besylate) 10 Mg Tablet, 10 MG PO DAILY, (Reported) Chlorthalidone (Chlorthalidone) 25 Mg Tablet, 25 MG PO DAILY, (Reported) Folic Acid (Folic Acid) 1 Mg Tablet, 1 MG PO DAILY Furosemide (Furosemide) 40 Mg Tablet, 1 TAB PO DAILY Magnesium Gluconate (Magnesium Gluconate) 27 Mg Tablet, 500 MG PO DAILY, (Reported) Metoprolol Tartrate (Metoprolol Tartrate) 25 Mg Tablet, 25 MG PO TID Multivit-Min/FA/Lycopen/Lutein (Centrum Silver Tablet) 1 Each Tablet, 1 TAB PO DAILY, (Reported) Potassium Chloride (Klor-Con M10) 10 Meq Tab.er.prt, 40 MEQ PO DAILY Rivaroxaban (Xarelto) 15 Mg Tablet, 15 MG PO DAILY, (Reported) Spironolactone (Aldactone) 25 Mg Tablet, 25 MG PO DAILY Sucralfate (Carafate) 1 Gm Tablet, 1 TAB PO QID Zolpidem Tartrate (Zolpidem Tartrate) 10 Mg Tablet, 10 MG PO QHS, (Reported) Scheduled PRN Hydroxyzine HCl (Hydroxyzine HCl) 50 Mg Tablet, 50 MG PO QHS PRN for SLEEP, (Reported) Oxycodone HCl/Acetaminophen (Oxycodon-Acetaminophen 7.5-325) 1 Each Tablet, 1 TAB PO TIDP PRN for pain Allergies Coded Allergies: No Known Allergies (Unverified , 04/13/19) NEVIN OLIVER DO Jun 18, 2020 20:47
[2020-06-18] MEDS ORDERED: POTASSIUM CHLORIDE 10 MEQ SR TABLET PO ONE (21:00)
== END 2020-06-18 12:35 | disposition home or self-care (01) | DRG 377 ==
LOC: M ED 14:03 → M ED INP 16:37 → ENRESERV 17:00 → M ICU 17:47 → M PCU 06-15 05:52 → M MSPAV 06-17 15:18
PROVIDERS: ADMIT Internal Medicine; ATTEND Neuromusculoskeletal Medicine & OMM
DX: K92.2 Gastrointestinal hemorrhage, unspecified (principal); J96.01 Acute respiratory failure with hypoxia; I50.33 Acute on chronic diastolic (congestive) heart failure; E87.2 Acidosis; I48.20 Chronic atrial fibrillation, unspecified; N18.4 Chronic kidney disease, stage 4 (severe); N17.9 Acute kidney failure, unspecified; E87.1 Hypo-osmolality and hyponatremia; E87.4 Mixed disorder of acid-base balance; I13.0 Hypertensive heart and chronic kidney disease with heart failure and stage 1 through stage 4 chronic kidney disease, or unspecified chronic kidney disease; F10.129 Alcohol abuse with intoxication, unspecified; K70.30 Alcoholic cirrhosis of liver without ascites; E83.42 Hypomagnesemia; F17.200 Nicotine dependence, unspecified, uncomplicated; E87.6 Hypokalemia; M10.30 Gout due to renal impairment, unspecified site; K76.0 Fatty (change of) liver, not elsewhere classified; K57.30 Diverticulosis of large intestine without perforation or abscess without bleeding; I25.10 Atherosclerotic heart disease of native coronary artery without angina pectoris; M54.5 Low back pain; E66.01 Morbid (severe) obesity due to excess calories; G47.33 Obstructive sleep apnea (adult) (pediatric); Z91.19 Patient's noncompliance with other medical treatment and regimen; Z96.643 Presence of artificial hip joint, bilateral; Z96.653 Presence of artificial knee joint, bilateral; Z79.01 Long term (current) use of anticoagulants; Z79.899 Other long term (current) drug therapy; Z20.828 Contact with and (suspected) exposure to other viral communicable diseases

== ENCOUNTER 2020-09-23 08:56 | Observation (INO) | payer MEDICARE ==
[~2020-09-23] VITALS: Ht 170.2 cm; Wt 131.2 kg
[~2020-09-23 08:56] MED LIST changes: +ALDA25TA2 PO; +CARA1TAB6 PO; +FOLI1TAB11 PO; +FURO40TA2 PO; +KLOR10TA76 PO; -LISI40TA PO; +LISI40TA4 PO; +MAGN500T6 PO; +OXYC1TAB15 PO; +ZOLP10TA2 PO; -allopurinoL 100 MG TAB PO SCH; -amLODIPine 10 MG TAB PO SCH
[2020-09-23] MEDS ORDERED: NITR0.4S14 SL (09:10)
[2020-09-23] MEDS ORDERED: PANTOPRAZOLE 40MG VIAL (C9113 PER 1) IV ONE (09:55)
[2020-09-23 10:42] LABS: BASO % 0.1 % (0.0-1.0); EOS % 0.1 % (0.0-3.0); HEMATOCRIT 45.9 % (42.0-52.0); HEMOGLOBIN 15.8 g/dl (13.5-17.5); LYMPH # 2.8 10^3/uL (1.5-5.0); LYMPH % 20.8 % (24.0-44.0); MEAN CORPUSCULAR HEMOGLOBIN 31.7 pg (27.0-33.0); MEAN CORPUSCULAR HGB CONC 34.4 g/dl (32.0-36.5); MEAN CORPUSCULAR VOLUME 92.2 fl (80.0-96.0); MONO # 1.4 10^3/uL (0.0-0.8); MONO % 10.6 % (2.0-8.0); NEUTROPHILS # 9.1 10^3/uL (1.5-8.5); NEUTROPHILS % 67.9 % (36.0-66.0); PLATELET COUNT, AUTOMATED 199 10^3/uL (150-450); RED BLOOD COUNT 4.98 10^6/uL (4.30-6.10); WHITE BLOOD COUNT 13.3 10^3/uL (4.0-10.0)
[2020-09-23 10:52] LABS: INR 1.72; PARTIAL THROMBOPLASTIN TIME 30.4 SECONDS (24.2-38.5); PROTHROMBIN TIME 20.5 SECONDS (12.5-14.3)
[2020-09-23] MEDS ORDERED: FOLI1TAB11 PO (10:53)
[2020-09-23] MEDS ORDERED: SPIR-10 PO (10:53)
[2020-09-23] MEDS ORDERED: METO1TAB87 PO ×2 (10:53)
[2020-09-23] MEDS ORDERED: ALLO100T PO (10:53)
[2020-09-23] MEDS ORDERED: OXYC10TA3 PO (10:53)
[2020-09-23] MEDS ORDERED: POTA10TA67 PO (10:53)
[2020-09-23] MEDS ORDERED: SUCR1TAB56 PO (10:53)
[2020-09-23] MEDS ORDERED: FURO40TA2 PO (10:53)
[2020-09-23 11:31] LABS: CALCIUM LEVEL 9.3 MG/DL (8.8-10.2); CREATININE FOR GFR 1.86 MG/DL (0.70-1.30); GLOMERULAR FILTRATION RATE 38.9 (>49); POTASSIUM SERUM 3.9 MEQ/L (3.5-5.1)
[2020-09-23 11:32] LABS: ALBUMIN 3.5 GM/DL (3.2-5.2); BILIRUBIN,DIRECT 0.2 MG/DL (0.0-0.2); BILIRUBIN,TOTAL 1.2 MG/DL (0.2-1.0); TOTAL PROTEIN 7.5 GM/DL (6.4-8.2)
[2020-09-23 13:05] LABS: RSV AMPLIFICATION NEGATIVE (NEGATIVE)
[2020-09-23] MEDS: IPRATROPIUM 0.5MG/ALBUTEROL 2.5MG INH SOL UD 3ML (DUONEB) NEB SCH ×2 (16:00→23:39)
--- NOTE | 2020-09-23 16:03 | HPEPDOC ---
General Date of Admission 09/23/20 Date of Service: Sep 23, 2020 Chief Complaint The patient is a 65-year-old male admitted with a reason for visit of Blood In Stool. Source: Patient, RN/MD History of Present Illness This is a 65-year-old male with a past medical history of DEYSI, Morbid obesity, COPD, hypertension, gout, history of alcohol abuse, cirrhosis of liver, atria l fibrillation on xarelto , chronic kidney disease stage 4, with a baseline creatinine of around 1.6 presented to ED with black tarry stools since last night. He had 3 episodes. No abdominal pain. He did have upper abdominal pain, nausea and vomiting which lasted for 2 days earlier this week when he could not even keep his food down. However that got better 2 days ago. He did not have any blood or cofee grounds int eh vomitus . It was bilious. He reports he last drank 2 beers 5 days ago. He was admitted for GIB. Home Medications Scheduled Allopurinol (Allopurinol) 100 Mg Tablet, 100 MG PO DAILY, (Reported) Amlodipine Besylate (Amlodipine Besylate) 10 Mg Tablet, 10 MG PO DAILY, (Reported) Folic Acid (Folic Acid) 1 Mg Tablet, 1 MG PO DAILY, (Reported) Furosemide (Furosemide) 40 Mg Tablet, 40 MG PO DAILY, (Reported) Metoprolol Tartrate (Metoprolol Tartrate) 25 Mg Tablet, 50 MG PO QAM, (Reported) Metoprolol Tartrate (Metoprolol Tartrate) 25 Mg Tablet, 25 MG PO QHS, (Reported) Pantoprazole Sodium (Pantoprazole Sodium) 40 Mg Tablet.dr, 40 MG PO DAILY Potassium Chloride (Potassium Chloride) 10 Meq Tab.er.prt, 10 MEQ PO DAILY, (Reported) Spironolactone (Spironolactone) 25 Mg Tablet, 25 MG PO DAILY, (Reported) Sucralfate (Sucralfate) 1 Gm Tablet, 1 GM PO ACHS, (Reported) Scheduled PRN Nitroglycerin (Nitroglycerin) 0.4 Mg Tab.subl, 0.4 MG SL NITRO PRN for CHEST PAIN, (Reported) Oxycodone HCl/Acetaminophen (Oxycodone-Acetaminophen 10-325) 1 Each Tablet, 1 TAB PO TID PRN for PAIN, (Reported) Zolpidem Tartrate (Zolpidem Tartrate) 10 Mg Tablet, 10 MG PO QHS PRN for SLEEP, (Reported) Allergies Coded Allergies: No Known Allergies (Unverified , 04/13/19) Past Medical History Medical History Chronic atrial fibrillation. Alcoholic liver cirrhosis. CKD stage 4 Hypertension. Chronic back pain. Insomnia. COPD. Obstructive sleep apnea, not compliant. Morbid Obesity, body mass index (BMI) 45.7 Active smoker. Hypertension. Gout Surgical History Bilateral knee replacement times three. Both hips replaced. Family History Father at age 94 with cerebrovascular accident (CVA). Mother at age 93 with coronary artery disease (CAD), myocardial infarction (ID). He has one brother he does not speak to. Social History * Smoker: current smoker Alcohol: heavy (drinks vodka every day) A-FIB/CHADSVASC A-FIB History Current/History of A-Fib/PAF?: Yes Current PO Anticoag Therapy: Yes Review of Systems Constitutional: Denies: Chills, Fever, Night Sweats Eyes: Denies: Pain, Vision change ENT: Denies: Head Aches, Ear Pain, Dysphagia Skin: Denies: Rash, Lesions, Breakdown Pulmonary: Denies: Dyspnea, Cough Cardiovascular: Denies: Chest Pain, Palpitations, Orthopnea, Paroxysmal Noc. Dyspnea, Lt [place] Gastrointestinal: Reports: Nausea, Vomiting, Abdominal Pain, Melena Genitourinary: Denies: Dysuria, Frequency, Incontinence, Retention Musculoskeletal: Reports: Back Pain Physical Examination General Exam: Positive: Alert, Cooperative, No Acute Distress Eye Exam: Positive: PERRLA, Conjunctiva & lids normal, EOMI; Negative: Sclera icteric ENT Exam: Positive: Atraumatic, Mucous membr. moist/pink, Pharynx Normal Chest Exam: Positive: Clear to auscultation, Normal air movement Heart Exam: Positive: Rate Normal, Regular Rhythm, Normal S1, Normal S2; Negative: Murmurs, Rubs Abdomen Exam: Positive: Normal bowel sounds, Soft, Other (very obese); Negative: Tenderness Extremity Exam: Negative: Clubbing, Cyanosis, Edema Skin Exam: Positive: Nl turgor and temperature; Negative: Breakdown, Lesion Vital Signs Vital Signs Date Time Temp Pulse Resp B/P (MAP) Pulse Ox O2 Delivery O2 Flow Rate FiO2 09/23/20 11:59 93 18 133/80 (97) 96 Room Air 09/23/20 08:57 98.0 Laboratory Data Labs 24H Laboratory Tests 2 09/23/20 10:01: Immature Granulocyte % (Auto) 0.5, Neutrophils (%) (Auto) 67.9H, Lymphocytes (%) (Auto) 20.8L, Monocytes (%) (Auto) 10.6H, Eosinophils (%) (Auto) 0.1, Basophils (%) (Auto) 0.1, Neutrophils # (Auto) 9.1H, Lymphocytes # (Auto) 2.8, Monocytes # (Auto) 1.4H, Eosinophils # (Auto) 0.0, Basophils # (Auto) 0.0, Nucleated Red Blood Cells % (auto) 0.0, Prothrombin Time 20.5H, Prothromb Time International Ratio 1.72, Activated Partial Thromboplast Time 30.4, Urine Color YELLOW, Urine Appearance HAZY, Urine pH 6.0, Urine Specific [place] 1.011, Urine Protein NEGATIVE, Urine Glucose (UA) NEGATIVE, Urine Ketones NEGATIVE, Urine Blood NEGATIVE, Urine Nitrite NEGATIVE, Urine Bilirubin NEGATIVE, Urine Urobilinogen 0.2, Urine Leukocyte Esterase NEGATIVE, Urine WBC (Auto) 1, Urine RBC (Auto) 0, Urine Hyaline Casts (Auto) 1, Urine Bacteria (Auto) NEGATIVE, Urine Squamous Epithelial Cells 0, Urine Sperm (Auto) , Anion Gap 8, Glomerular Filtration Rate 38.9L, Calcium Level 9.3, Total Bilirubin 1.2H, Direct Bilirubin 0.2, Aspartate Amino Transf (AST/SGOT) 77H, Alanine Aminotransferase (ALT/SGPT) 29, Alkaline Phosphatase 62, Total Protein 7.5, Albumin 3.5, Albumin/Globulin Ratio 0.9, Amylase Level 64, Lipase 226 09/23/20 10:25: POC Glucose (Misc Panel) 113H, POC Sodium (Misc Panel) 127L, POC Potassium (Misc Panel) 3.4L, POC Chloride (Misc Panel) 85L, POC Total CO2 (Misc Panel) 34.0H, POC Blood Urea Nitrogen (Misc Panel 43H, POC Ionized Calcium (Misc Panel) 4.2L, POC Creatinine (Misc Panel) 1.8H, POC Hematocrit (Misc Panel) 50.0 09/23/20 12:14: CBC/BMP Laboratory Tests 09/23/20 10:01 Assessment/Plan This is a 65-year-old male with a past medical history of DEYSI, Morbid obesity, COPD, hypertension, gout, history of alcohol abuse, cirrhosis of liver, atrial fibrillation on xarelto , chronic kidney disease stage 4, with a baseline creatinine of around 1.6 presented to ED with black tarry stools since last night. He had 3 episodes. No abdominal pain. He did have upper abdominal pain, nausea and vomiting which lasted for 2 days earlier this week when he could not even keep his food down. However that got better 2 days ago. He did not have any blood or cofee grounds int eh vomitus . It was bilious. He reports he last drank 2 beers 5 days ago. He was admitted for GIB. GIB hb in normal range, no drop from before could be related to acute gastritis on the back ground of being on xarelto had EGD in Jun 2020 found to have gastritis , no varices. will start PPI infusion continue sucralfate. monitor cbc. Hypertension continue metoprolol and amlodipine Afib rate controlled continue metoprolol, stop xarelto Morbid obesity / DEYSI untreated. COPD not on any meds at home. Alcoholic cirrhosis will hold lasix and spironolactone tonight. patient also on Chlorthalidone at home will stop it. Hyponatremia likely related to diuretics on the back ground of cirrhosis of liver will stop chlorthalidone CKD stage 4 baseline creatinine about 1.6. creatinine close to baseline. Plan / VTE VTE Prophylaxis Ordered?: Yes TOMÁS LAZARO MD Sep 23, 2020 13:05
[2020-09-23] MEDS: SUCRALFATE 1 GM TAB PO SCH ×2 (16:05→21:04)
[2020-09-23] MEDS: PANTOPRAZOLE SODIUM 40 MG in D5W 50 ML IV SCH ×2 (16:05→21:03)
[2020-09-23 16:25] VITALS: BP 134/62
[2020-09-23] MEDS: PERCOCET 5MG/325MG TAB PO PRN (17:26)
[2020-09-23 18:09] LABS: HEMATOCRIT 44.7 % (42.0-52.0); HEMOGLOBIN 15.5 g/dl (13.5-17.5); MEAN CORPUSCULAR HEMOGLOBIN 32.1 pg (27.0-33.0); MEAN CORPUSCULAR HGB CONC 34.7 g/dl (32.0-36.5); MEAN CORPUSCULAR VOLUME 92.5 fl (80.0-96.0); PLATELET COUNT, AUTOMATED 161 10^3/uL (150-450); RED BLOOD COUNT 4.83 10^6/uL (4.30-6.10); WHITE BLOOD COUNT 10.8 10^3/uL (4.0-10.0)
[2020-09-23] MEDS ORDERED: METOPROLOL TART 25 MG TABLET PO SCH (21:00)
[2020-09-23 22:00] VITALS: BP 128/65
[2020-09-24] MEDS: PANTOPRAZOLE SODIUM 40 MG in D5W 50 ML IV SCH ×3 (02:18→09:40)
[2020-09-24] MEDS: PERCOCET 5MG/325MG TAB PO PRN ×2 (02:18→10:50)
[2020-09-24 06:00] VITALS: BP 126/70
[2020-09-24 06:31] LABS: BASO % 0.4 % (0.0-1.0); EOS # 0.1 10^3/uL (0.0-0.5); EOS % 0.7 % (0.0-3.0); HEMATOCRIT 43.6 % (42.0-52.0); HEMOGLOBIN 14.9 g/dl (13.5-17.5); LYMPH # 3.2 10^3/uL (1.5-5.0); LYMPH % 35.4 % (24.0-44.0); MEAN CORPUSCULAR HEMOGLOBIN 31.5 pg (27.0-33.0); MEAN CORPUSCULAR HGB CONC 34.2 g/dl (32.0-36.5); MEAN CORPUSCULAR VOLUME 92.2 fl (80.0-96.0); MONO % 10.7 % (2.0-8.0); NEUTROPHILS # 4.7 10^3/uL (1.5-8.5); NEUTROPHILS % 52.4 % (36.0-66.0); PLATELET COUNT, AUTOMATED 135 10^3/uL (150-450); RED BLOOD COUNT 4.73 10^6/uL (4.30-6.10); WHITE BLOOD COUNT 9.1 10^3/uL (4.0-10.0)
[2020-09-24 06:58] LABS: CALCIUM LEVEL 8.7 MG/DL (8.8-10.2); CREATININE FOR GFR 1.83 MG/DL (0.70-1.30); GLOMERULAR FILTRATION RATE 39.6 (>49)
[2020-09-24] MEDS: IPRATROPIUM 0.5MG/ALBUTEROL 2.5MG INH SOL UD 3ML (DUONEB) NEB SCH (07:18)
[2020-09-24] MEDS ORDERED: FOLIC ACID 1 MG TAB PO SCH (09:00)
[2020-09-24] MEDS ORDERED: allopurinoL 100 MG TAB PO SCH (09:00)
[2020-09-24] MEDS ORDERED: POTASSIUM CHLORIDE 10 MEQ SR TABLET PO ONE (09:00)
[2020-09-24] MEDS ORDERED: FUROSEMIDE 40 MG TAB PO SCH (09:00)
[2020-09-24] MEDS ORDERED: SPIRONOLACTONE 25 MG TAB PO SCH (09:00)
[2020-09-24] MEDS ORDERED: METOPROLOL TART 50 MG TAB PO SCH (09:00)
[2020-09-24] MEDS ORDERED: PANT40TA29 PO (09:09)
[2020-09-24] MEDS: SUCRALFATE 1 GM TAB PO SCH ×2 (09:36→10:49)
[2020-09-24 09:38] VITALS: BP 136/82
--- NOTE | 2020-09-24 11:26 | DS.PDOC ---
Discharge Summary General Date of Admission Sep 23, 2020 at 08:57 Date of Discharge 09/24/20 Discharge Summary PROCEDURES PERFORMED DURING STAY: [None]. DISCHARGE DIAGNOSES: GIB second episode on the back ground of Xarelto. Hyponatremia Hypokalemia SECONDARY DIAGNOSIS: Cirrhosis of liver, No varices Gastritis in jun 2020. DEYSI, Morbid obesity, COPD, hypertension, gout, history of alcohol abuse, atrial fibrillation on xarelto, chronic kidney disease stage 4, with a baseline creatinine of around 1.6 COMPLICATIONS/CHIEF COMPLAINT: Gi Bleed. HOSPITAL COURSE: This is a 65-year-old male with a past medical history of DEYSI, Morbid obesity, COPD, hypertension, gout, history of alcohol abuse, cirrhosis of liver, atrial fibrillation on xarelto , chronic kidney disease stage 4, with a baseline creatinine of around 1.6 presented to ED with black tarry stools since last night. He had 3 episodes. No abdominal pain. He did have upper abdominal pain, nausea and vomiting which lasted for 2 days earlier this week when he could not even keep his food down. However that got better 2 days ago. He did not have any blood or cofee grounds int eh vomitus . It was bilious. He reports he last drank 2 beers 5 days ago. He was admitted for GIB. GIB hb in normal range, no drop from before could be related to acute gastritis on the back ground of being on xarelto had EGD in Jun 2020 found to have gastritis , no varices. will start PPI infusion continue sucralfate. CBC stable did not need any transfusion Will need Colonoscopy as outpatient. Hypertension continue metoprolol and amlodipine Afib rate controlled continue metoprolol, stop xarelto Morbid obesity / DEYSI untreated. COPD not on any meds at home. Alcoholic cirrhosis will hold lasix and spironolactone tonight. patient also on Chlorthalidone at home will stop it. Hyponatremia likely related to diuretics on the back ground of cirrhosis of liver will stop chlorthalidone CKD stage 4 baseline creatinine about 1.6. creatinine close to baseline. DISCHARGE MEDICATIONS: Please see below. ALLERGIES: Please see below. PHYSICAL EXAMINATION ON DISCHARGE: VITAL SIGNS: Please see below. General Exam: Positive: Alert, Cooperative, No Acute Distress Eye Exam: Positive: PERRLA, Conjunctiva & lids normal, EOMI; Negative: Sclera icteric ENT Exam: Positive: Atraumatic, Mucous membr. moist/pink, Pharynx Normal Chest Exam: Positive: Clear to auscultation, Normal air movement Heart Exam: Positive: Rate Normal, Regular Rhythm, Normal S1, Normal S2; Negative: Murmurs, Rubs Abdomen Exam: Positive: Normal bowel sounds, Soft, Other (very obese); Negative: Tenderness Extremity Exam: Negative: Clubbing, Cyanosis, Edema Skin Exam: Positive: Nl turgor and temperature; Negative: Breakdown, Lesion LABORATORY DATA: Please see below. ACTIVITY: [As tolerated]. DIET: As tolerated DISCHARGE PLAN: Home DISCHARGE INSTRUCTIONS: PMD in 1 week Needs referral to GI for colonoscopy DISCHARGE CONDITION: [Stable]. TIME SPENT ON DISCHARGE: 35 minutes. Vital Signs/I&Os Vital Signs Date Time Temp Pulse Resp B/P (MAP) Pulse Ox O2 Delivery O2 Flow Rate FiO2 09/24/20 10:50 18 Room Air 09/24/20 09:38 104 136/82 09/24/20 06:00 97.2 93 I&O- Last 24 Hours up to 6 AM 09/24/20 06:00 Intake Total 1460 ml Output Total 700 ml Balance 760 ml Laboratory Data Labs 24H Laboratory Tests 2 09/23/20 12:14: Coronavirus (COVID-19)(PCR) NEGATIVE, Influenza Type A (RT-PCR) NEGATIVE, Influenza Type B (RT-PCR) NEGATIVE, Respiratory Syncytial Virus (PCR) NEGATIVE 09/23/20 17:34: Nucleated Red Blood Cells % (auto) 0.0 09/24/20 05:39: Nucleated Red Blood Cells % (auto) 0.0, Immature Granulocyte % (Auto) 0.4, Neutrophils (%) (Auto) 52.4, Lymphocytes (%) (Auto) 35.4, Monocytes (%) (Auto) 10.7H, Eosinophils (%) (Auto) 0.7, Basophils (%) (Auto) 0.4, Neutrophils # (Auto) 4.7, Lymphocytes # (Auto) 3.2, Monocytes # (Auto) 1.0H, Eosinophils # (Auto) 0.1, Basophils # (Auto) 0.0, Anion Gap 9, Glomerular Filtration Rate 39.6L, Calcium Level 8.7L CBC/BMP Laboratory Tests 09/23/20 17:34 09/24/20 05:39 Discharge Medications Scheduled Allopurinol (Allopurinol) 100 Mg Tablet, 100 MG PO DAILY, (Reported) Amlodipine Besylate (Amlodipine Besylate) 10 Mg Tablet, 10 MG PO DAILY, (Reported) Folic Acid (Folic Acid) 1 Mg Tablet, 1 MG PO DAILY, (Reported) Furosemide (Furosemide) 40 Mg Tablet, 40 MG PO DAILY, (Reported) Metoprolol Tartrate (Metoprolol Tartrate) 25 Mg Tablet, 50 MG PO QAM, (Reported) Metoprolol Tartrate (Metoprolol Tartrate) 25 Mg Tablet, 25 MG PO QHS, (Reported) Pantoprazole Sodium (Pantoprazole Sodium) 40 Mg Tablet.dr, 40 MG PO DAILY Potassium Chloride (Potassium Chloride) 10 Meq Tab.er.prt, 10 MEQ PO DAILY, (Reported) Spironolactone (Spironolactone) 25 Mg Tablet, 25 MG PO DAILY, (Reported) Sucralfate (Sucralfate) 1 Gm Tablet, 1 GM PO ACHS, (Reported) Scheduled PRN Nitroglycerin (Nitroglycerin) 0.4 Mg Tab.subl, 0.4 MG SL NITRO PRN for CHEST PAIN, (Reported) Oxycodone HCl/Acetaminophen (Oxycodone-Acetaminophen 10-325) 1 Each Tablet, 1 TAB PO TID PRN for PAIN, (Reported) Zolpidem Tartrate (Zolpidem Tartrate) 10 Mg Tablet, 10 MG PO QHS PRN for SLEEP, (Reported) Allergies Coded Allergies: No Known Allergies (Unverified , 04/13/19) TOMÁS LAZARO MD Sep 24, 2020 11:26
--- NOTE | 2020-09-25 07:56 | ECGEPIP ---
[facility] - ED Test Date: 2020-09-23 Pat Name: KATHIE FOFANA Department: Room: - Gender: Male Patient Relations Manager: RAIZA : [id number] Requested By: DALY Zee Order Number: [id number] Reading MD: Trini Rodriguez Measurements Intervals [place] Rate: 93 P: [place]: QRS: 52 QRSD: 74 T: 46 QT: 374 QTc: 465 Interpretive Statements Atrial fibrillation Nonspecific ST and T wave abnormality decreased rate 06/12/20 Electronically Signed on 09-25-2020 7:56:18 EDT by Trini Rodriguez
== END 2020-09-24 11:22 | disposition home or self-care (01) ==
LOC: M ED 08:56 → M ED INP 08:57 → M MSPAV 16:27
PROVIDERS: ADMIT Internal Medicine Nephrology; ATTEND Internal Medicine Nephrology
DX: K92.2 Gastrointestinal hemorrhage, unspecified (principal); Z79.01 Long term (current) use of anticoagulants; E87.1 Hypo-osmolality and hyponatremia; E87.6 Hypokalemia; I48.20 Chronic atrial fibrillation, unspecified; K70.30 Alcoholic cirrhosis of liver without ascites; K29.70 Gastritis, unspecified, without bleeding; G47.33 Obstructive sleep apnea (adult) (pediatric); Z91.19 Patient's noncompliance with other medical treatment and regimen; E66.01 Morbid (severe) obesity due to excess calories; Z68.42 Body mass index [BMI] 45.0-49.9, adult; G47.00 Insomnia, unspecified; J44.9 Chronic obstructive pulmonary disease, unspecified; I12.9 Hypertensive chronic kidney disease with stage 1 through stage 4 chronic kidney disease, or unspecified chronic kidney disease; M10.9 Gout, unspecified; N18.4 Chronic kidney disease, stage 4 (severe); Z79.899 Other long term (current) drug therapy; F17.200 Nicotine dependence, unspecified, uncomplicated
CPT/HCPCS: 36415; 80047; 80048; 80076; 81001; 82150; 83690; 85025; 85027; 85610; 85730; 86850; 86900; 86901; 87631; 93005; 93041; 94640; 96365; 96366; 96375; 99285; C9113; G0378

== ENCOUNTER → 2020-12-21 | Outpatient (CLI) | payer MEDICARE ==
[~2020-12-21] MED LIST changes: +ALBU8.5H; +ALLO100T PO; +CHLO125TA; +NITR0.4S14 SL; +OXYC10TA3 PO; +POTA10TA67 PO; +SPIR-10 PO; +SUCR1TAB56 PO
== END ==
LOC: M LABSMTC 11:49
PROVIDERS: ATTEND Anesthesiology
DX: Z01.818 Encounter for other preprocedural examination (principal); Z11.52 Encounter for screening for COVID-19

== ENCOUNTER 2020-12-26 07:57 | Day surgery (SDC) | payer MEDICARE ==
[~2020-12-26] VITALS: Ht 175.3 cm; Wt 133.5 kg
[~2020-12-26 07:57] MED LIST changes: +LR 1,000 ML IV ONE; -OXYC1TAB15 PO; +OXYC7.5T3 PO
[2020-12-26] MEDS ORDERED: OXYMETAZOLINE 0.05% NASAL SPRAY (AFRIN) As Ordered ONE (09:49)
[2020-12-26] MEDS ORDERED: ALBUTEROL SULFATE 2.5 MG/0.5 ML INH NEB SOLN INH ONE (10:00)
[2020-12-26] MEDS ORDERED: fentaNYL 100 MCG/2 ML INJECTION (J3010) As Ordered ONE (10:54)
[2020-12-26] MEDS ORDERED: LIDOCAINE 2% 100MG/5ML SDV (FOR ANES.) As Ordered ONE (10:54)
[2020-12-26] MEDS ORDERED: dexameTHASONE 4 MG/ML 1ML VIAL (J1100 PER 1MG) As Ordered ONE ×2 (10:54→11:09)
[2020-12-26] MEDS ORDERED: MIDAZOLAM INJ 2MG/2ML VIAL (J2250 PER 1MG) As Ordered ONE (10:54)
[2020-12-26] MEDS ORDERED: SUGAMMADEX SODIUM 500 MG/5 ML VIAL (BRIDION) As Ordered ONE (10:54)
[2020-12-26] MEDS ORDERED: PHENYLephrine 500MCG 5ML (100MCG/ML) SYRINGE As Ordered ONE (10:54)
[2020-12-26] MEDS ORDERED: ONDANSETRON 4MG/2ML VIAL As Ordered ONE (10:54)
[2020-12-26] MEDS ORDERED: ROCURONIUM BROMIDE 50 MG/5 ML VIAL As Ordered ONE (10:54)
[2020-12-26] MEDS ORDERED: propofoL 200 MG/20 ML VIAL As Ordered ONE (10:54)
[2020-12-26] MEDS ORDERED: METOCLOPRAMIDE INJ 10MG/2ML VIAL (J2765 PER 1) As Ordered ONE (10:54)
[2020-12-26] MEDS ORDERED: ACETAMINOPHEN 1000MG 100ML IV BTL (OFIRMEV) (J0131 PER 10MG) As Ordered ONE (10:59)
[2020-12-26] MEDS ORDERED: LR 1,000 ML IV SCH ×2 (11:45)
[2020-12-26] MEDS ORDERED: fentaNYL 100 MCG/2 ML INJECTION (J3010) IV PRN (11:45)
[2020-12-26] MEDS ORDERED: ONDANSETRON 4MG/2ML VIAL IV PRN (11:45)
--- NOTE | 2020-12-26 12:23 | POST-OPPD ---
Postoperative Procedure Note Date Of Procedure: Dec 26, 2020 Time Of Procedure: 11:11 PREOPERATIVE DIAGNOSIS: [Laryngeal mass] POSTOPERATIVE DIAGNOSIS: [Same] FINDINGS: [Same] PROCEDURE: [Suspension microlaryngoscopy and biopsy of laryngeal mass] SURGEON: [Moise] CLOTH DRIER: [Kristel] ANESTHESIA: [None] SPECIMENS: [Laryngeal mass left side] ESTIMATED BLOOD LOSS: [Less than 5 mL] REPLACED: [None] DRAINS: [None] COMPLICATIONS: [9] POSTOPERATIVE CONDITION: [Stable] Sebastian is a 65-year-old gentleman who was seen in the office and diagnosed with the above condition. Decision was made in consultation with the patient after explanation of the risks and benefits to undergo the above-named procedure. He was admitted through same day surgery program and taken to the operating room where he was ministered general anesthetic by intravenous injection. He was then intubated endotracheally. The upper dentition was protected with a tooth guard. The Dedo laryngoscope was placed into the airway and advanced to the laryngeal area. 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 The laryngeal surface of the epiglottis and the false cord on the left side. The post cricoid area, vallecula, and puriform areas were clear. The Lewy suspension apparatus was connected to the laryngoscope. This was secured to [place] stand. The microscope was brought into position. The left vocal cord mass was visualized. The cup biopsy forceps were used to harvest tissue from this area. Hemostasis was achieved with pledgets soaked in Afrin. These were then removed. The Lewy suspension apparatus was released. The microscope was swung out of position and the laryngoscope was removed from the airway. Patient was then a llowed to recover from the anesthetic and taken to the postanesthesia care area in stable condition. Reynold Phipps MD Dec 26, 2020 12:23
[2020-12-26 12:45] VITALS: BP 120/75
== END 2020-12-26 13:04 | disposition home or self-care (01) ==
LOC: M SDC 07:57
PROVIDERS: ATTEND Otolaryngology
DX: D14.1 Benign neoplasm of larynx (principal); J34.2 Deviated nasal septum; I48.91 Unspecified atrial fibrillation; I10 Essential (primary) hypertension; I25.10 Atherosclerotic heart disease of native coronary artery without angina pectoris; M10.9 Gout, unspecified; E78.5 Hyperlipidemia, unspecified; R01.0 Benign and innocent cardiac murmurs; N28.9 Disorder of kidney and ureter, unspecified; K57.90 Diverticulosis of intestine, part unspecified, without perforation or abscess without bleeding; K74.60 Unspecified cirrhosis of liver; Z86.718 Personal history of other venous thrombosis and embolism; F17.210 Nicotine dependence, cigarettes, uncomplicated; F10.21 Alcohol dependence, in remission; G47.33 Obstructive sleep apnea (adult) (pediatric); Z79.899 Other long term (current) drug therapy; Z79.01 Long term (current) use of anticoagulants
CPT/HCPCS: 31536; 88305; J0131; J1100; J2250; J2370; J2405; J2765; J3010

== ENCOUNTER 2021-02-14 14:59 | Emergency (ER) | payer MEDICARE ==
[~2021-02-14] VITALS: Ht 175.3 cm; Wt 135.5 kg
[~2021-02-14 14:59] MED LIST changes: -LR 1,000 ML IV ONE
[2021-02-14 15:00] VITALS: BP 130/83
== END 2021-02-14 18:50 | disposition left against medical advice (07) ==
LOC: M ED 14:59
DX: Z53.29 Procedure and treatment not carried out because of patient's decision for other reasons (principal)

== ENCOUNTER 2021-04-25 12:58 | Emergency (ER) | payer MEDICARE ==
[~2021-04-25] VITALS: Ht 182.9 cm; Wt 131.8 kg
[~2021-04-25 12:58] MED LIST changes: -KLOR10TA76 PO; +POTA-136 PO
[2021-04-25 13:41] VITALS: BP 174/89
--- NOTE | 2021-04-25 14:17 | REPVR ---
PROCEDURE INFORMATION: Exam: CT Head Without Contrast Exam date and time: 04/25/2021 2:04 PM Age: 65 years old Clinical indication: Injury or trauma. TECHNIQUE: Imaging protocol: Computed tomography of the head without contrast. Radiation optimization: All CT scans at this facility use at least one of these dose optimization techniques: automated exposure control; mA and/or kV adjustment per patient size (includes targeted exams where dose is matched to clinical indication); or iterative reconstruction. COMPARISON: No relevant prior studies available. FINDINGS: Brain: There are occasional foci of low density in the reddy radiata and centrum semiovale, likely reflecting areas of gliosis, demyelination, and/or ischemic change. Cerebral ventricles: No ventriculomegaly. Paranasal sinuses: Visualized sinuses are unremarkable. No fluid levels. Mastoid air cells: Visualized mastoid air cells are well aerated. Bones/joints: Unremarkable. No acute fracture. Soft tissues: Unremarkable. IMPRESSION: 1. No posttraumatic intracranial findings. Please see details above. 2. There are occasional foci of low density in the reddy radiata and centrum semiovale, likely reflecting areas of gliosis, demyelination, and/or ischemic change. Electronically signed by: Parmindre Coronado On 04/25/2021 14:16:31 PM
--- NOTE | 2021-04-25 15:02 | REP ---
INDICATION: trauma COMPARISON: None. TECHNIQUE: Three views of the left shoulder FINDINGS: There is an acute angulated displaced fracture through the mid humeral shaft with overlying soft tissue swelling. IMPRESSION: Acute displaced fracture through the mid humeral shaft. <Electronically signed by Jensen Tadeo > 04/25/21 [id number]
--- NOTE | 2021-04-25 15:03 | REP ---
INDICATION: trauma COMPARISON: None. TECHNIQUE: Two views of the left humerus FINDINGS: There is an oblique significantly displaced fracture through the mid humeral shaft with overlying soft tissue swelling. IMPRESSION: Oblique displaced fracture through the mid humeral shaft.. <Electronically signed by Jensen Tadeo > 04/25/21 [id number]
--- NOTE | 2021-04-25 15:04 | REP ---
INDICATION: trauma COMPARISON: None. TECHNIQUE: AP, lateral, bilateral oblique views of the left elbow. FINDINGS: There is a known displaced fracture through the mid umol shaft. The elbow demonstrates age-related changes without acute fracture or dislocation and no obvious effusion or elevation to the fat pads. IMPRESSION: Age-related changes at the elbow. <Electronically signed by Jnesen Tadeo > 04/25/21 [id number]
--- OUTSIDE RECORDS SUMMARY | 2021-04-25 15:16 | CCD | Continuity of Care Document ---
Author Author Sebastian PHIPPS MD Organization Unknown Address [address] [facility], [address] [place] [address] Phone [phone] Care Team Providers Care Restorative Art Embalmer Name Role Phone Reynold Ray M.D. 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 Social History Type Date Description Comments Sex Unknown Smokeless Tobacco Never Used Smokeless Tobacco ETOH Use Pint a week Tobacco Use Start: 07/08/71 Patient is a current smoker, smo kes every day 1-2 cigs qd hx 1 - 1 1/2ppd Recreational Drug Use Current Drug User Brandonan a Smoking Status Reviewed: 12/15/20 Patient is a current smoker, smokes every day 1-2 cigs qd hx 1 - 1 1/2ppd Allergies, Adverse Reactions, Alerts Description No Known Drug Allergies Medications Active Medications SIG Qnty Indications Ordering Provide r Date Potassium Chloride Clotilde ER 10Meq Tablets ER 1 tab by mouth every day Unknown Amlodipine Besylate 10mg Tablets 1 by mouth every day Unknown Nitrostat 0.4mg Tablets Sub 1 sl every 5min x3 as needed for chest pain Unknown Oxycodone-Acetaminophen 5-325mg Ta blets 1 tab by mouth every 8 hours as needed Unknown Multivitamin Tablets 1 tab by mouth every day Unknown Allopurinol 100mg Tablets 1 by mouth every day Unknown Furosemide 40mg Tablets 1 by mouth every day Unknown Xarelto 15mg Tablets Take One Tablet By Mouth Every Day With Food Unknown Albuterol Sulfate HFA 108(90Base) mcg/Act Aerosol Inhale Two Puffs By Mouth Four Times A Day as Needed Unknown Folic Acid 1mg Tablets 1 tab by mouth every day 90tabs Unknown Metoprolol Tartrate 25mg Tablets 1 tab by mouth three times a day Unknown 00 Spironolactone 25mg Tablets Take One Tablet By Mouth Every Day Unknown Zolpidem Tartrate 10mg Tablets Take One Tablet By Mouth AT Bedtime as Needed as Directed Maximum Daily Dose 1 Unknown History Medications Hydrocodone-Acetaminophen 5-325mg Tablets 1 tab by mouth every 4 hours as needed reference #: [id number] 30tabs Reynold Phipps MD 12/26/2020 - 12/30/2020 Immunizations Description No Information Available Vital Signs Date Vital Result Comment 04/04/2021 1:32pm BP Systolic 110 mmHg BP Diastolic 80 mmHg Heart Rate 71 /min O2 % BldC Oximetry 92 % Height 68.5 inches 5'8.50" Weight 305.00 lb BMI (Body Mass Index) 45.7 kg/m2 [place] Body Weight 154 lb Weight 138.348 kg BSA (Body Surface Area) 2.46 m2 01/03/2021 9:53am BP Systolic 114 mmHg BP Diastolic 80 mmHg Heart Rate 59 /min O2 % BldC Oximetry 95 % Height 68.5 inches 5'8.50" Weight 304.00 lb BMI (Body Mass Index) 45.5 kg/m2 [place] Body Weight 154 lb Weight 137.894 kg BSA (Body Surface Area) 2.46 m2 Results Test Acquired Date Facility Test Result H/L Range Note Laboratory test finding 12/26/2020 [facility] Main Lab [address] [place] [address] [phone] Pathology Request For Service (SEE NOTE) 1 1 FINAL DIAGNOSIS 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 12/27/2020 - 1016 CLINICAL DIAGNOSIS Left laryngeal lesion 12/26/2020 - 1538 GROSS DIAGNOSIS Received in formalin labeled "left laryngeal biopsy" and consists of multiple fragments of tissue, 2 x 2 x 0.2 cm in aggregate. All in one. -OA 12/26/2020 - 1538 Signed MATHEW SHIELDS MD 12/27/2020 1018 Procedures Date Code Description Status 01/03/2021 80140 Office/Outpatient Established Mo d MDM 30-39 Min Completed 12/26/2020 95016 Laryngoscopy Direct Biopsy W/Ope rating Microscope Completed 12/15/2020 05237 Office/Outpatient New Moderate M DM 45-59 Minutes Completed 12/15/2020 83991 Laryngoscopy Flexible Fiberoptic Diagnostic Completed Medical Devices Description No Information Available Encounters Type Date Location Provider Dx Diagnosis Office Visit 01/03/2021 10:00a [facility] Pravin Grace B97.7 Papillomavirus as the cause of diseases classified elsewhere 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 Office Visit 12/15/2020 1:00p [facility] Pravin Grace 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 Assessments Date Code Description Provider 04/04/2021 B97.7 Papillomavirus as the cause of d iseases classified elsewhere Reynold Phipps MD 01/03/2021 B97.7 Papillomavirus as the cause of d iseases classified elsewhere Reynold Phipps MD 01/03/2021 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 [facility] Closed [address] [address] [phone]
--- OUTSIDE RECORDS SUMMARY | 2021-04-25 15:16 | CCD | Continuity of Care Document ---
Author Author Sebastian PHIPPS MD Organization Unknown Address [address] [facility], [address] [place] [address] Phone [phone] Care Team Providers Care Kayaking Instructor Name Role Phone Reynold Ray M.D. AUTM [phone] Natanael Rosales M.D AUTM [phone] AUTM Unavailable Sdio AUTM [phone] Problems Active Problems Provider Date Essential hypertension [...] every 4 hours as needed reference #: [id number] 30tabs Reynold Phipps MD 12/26/2020 - 12/30/2020 Immunizations Description No Information Available Vital Signs Date Vital Result Comment 04/04/2021 1:32pm BP Systolic 110 mmHg BP Diastolic 80 mmHg Heart Rate 71 /min O2 % BldC Oximetry 92 % Height 68.5 inches 5'8.50" Weight 305.00 lb BMI (Body Mass Index) 45.7 kg/m2 [place] Body Weight 154 lb Weight 138.348 kg BSA (Body Surface Area) 2.46 m2 01/03/2021 9:53am BP Systolic 114 mmHg BP Diastolic 80 mmHg Heart Rate 59 /min O2 % BldC Oximetry 95 % Height 68.5 inches 5'8.50" Weight 304.00 lb BMI (Body Mass Index) 45.5 kg/m2 [place] Body Weight 154 lb Weight 137.894 kg BSA (Body Surface Area) 2.46 m2 Results Test Acquired Date Facility Test Result H/L Range Note Laboratory test finding 12/26/2020 [facility] Main Lab [address] [place] [address] [phone] Pathology Request For Service (SEE NOTE) 1 [...] 1018 Procedures Date Code Description Status 01/03/2021 30703 Office/Outpatient Established Mo d MDM 30-39 Min Completed 12/26/2020 15791 Laryngoscopy Direct Biopsy W/Ope rating Microscope Completed 12/15/2020 13491 Office/Outpatient New Moderate M DM 45-59 Minutes Completed 12/15/2020 54063 Laryngoscopy Flexible Fiberoptic Diagnostic Completed Medical Devices Description No Information Available Encounters Type Date Location Provider Dx Diagnosis Office Visit 01/03/2021 10:00a [facility] Pravin Grace B97.7 Papillomavirus as the cause of diseases classified elsewhere 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 [facility] Closed [address] [address] [phone]
--- OUTSIDE RECORDS SUMMARY | 2021-04-25 15:16 | CCD | Continuity of Care Document ---
Author Author Sebastian PHIPPS MD Organization Unknown Address [address] [facility], [address] [place] [address] Phone [phone] Care Team Providers Care Wire Temperer Name Role Phone Reynold Ray M.D. AUTM [phone] Natanael Rosales M.D AUTM [phone] AUTM Unavailable Sdio AUTM [phone] Problems Active Problems Provider Date Essential hypertension [...] every 4 hours as needed reference #: [id number] 30tabs Reynold Phipps MD 12/26/2020 - 12/30/2020 Immunizations Description No Information Available Vital Signs Date Vital Result Comment 04/04/2021 1:32pm BP Systolic 110 mmHg BP Diastolic 80 mmHg Heart Rate 71 /min O2 % BldC Oximetry 92 % Height 68.5 inches 5'8.50" Weight 305.00 lb BMI (Body Mass Index) 45.7 kg/m2 [place] Body Weight 154 lb Weight 138.348 kg BSA (Body Surface Area) 2.46 m2 01/03/2021 9:53am BP Systolic 114 mmHg BP Diastolic 80 mmHg Heart Rate 59 /min O2 % BldC Oximetry 95 % Height 68.5 inches 5'8.50" Weight 304.00 lb BMI (Body Mass Index) 45.5 kg/m2 [place] Body Weight 154 lb Weight 137.894 kg BSA (Body Surface Area) 2.46 m2 Results Test Acquired Date Facility Test Result H/L Range Note Laboratory test finding 12/26/2020 [facility] Main Lab [address] [place] [address] [phone] Pathology Request For Service (SEE NOTE) 1 [...] 1018 Procedures Date Code Description Status 01/03/2021 50191 Office/Outpatient Established Mo d MDM 30-39 Min Completed 12/26/2020 25444 Laryngoscopy Direct Biopsy W/Ope rating Microscope Completed 12/15/2020 65978 Office/Outpatient New Moderate M DM 45-59 Minutes Completed 12/15/2020 30061 Laryngoscopy Flexible Fiberoptic Diagnostic Completed Medical Devices Description No Information Available Encounters Type Date Location Provider Dx Diagnosis Office Visit 01/03/2021 10:00a [facility] Pravin Grace B97.7 Papillomavirus as the cause of diseases classified elsewhere 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 [facility] Cl[facility] [address] [address] [phone]
--- OUTSIDE RECORDS SUMMARY | 2021-04-25 15:17 | CCD | Continuity of Care Document ---
Author Author Sebastian PHIPPS MD Organization Unknown Address [address] [facility], [address] [place] [address] Phone [phone] Care Team Providers Care Manager Facility Name Role Phone Reynold Ray M.D. AUTM [phone] Natnaael Rosales M.D AUTM [phone] AUTM Unavailable Sdio AUTM [phone] Problems Active Problems Provider Date Essential hypertension [...] every 4 hours as needed reference #: [id number] 30tabs Reynold Phipps MD 12/26/2020 - 12/30/2020 Immunizations Description No Information Available Vital Signs Date Vital Result Comment 04/04/2021 1:32pm BP Systolic 110 mmHg BP Diastolic 80 mmHg Heart Rate 71 /min O2 % BldC Oximetry 92 % Height 68.5 inches 5'8.50" Weight 305.00 lb BMI (Body Mass Index) 45.7 kg/m2 [place] Body Weight 154 lb Weight 138.348 kg BSA (Body Surface Area) 2.46 m2 01/03/2021 9:53am BP Systolic 114 mmHg BP Diastolic 80 mmHg Heart Rate 59 /min O2 % BldC Oximetry 95 % Height 68.5 inches 5'8.50" Weight 304.00 lb BMI (Body Mass Index) 45.5 kg/m2 [place] Body Weight 154 lb Weight 137.894 kg BSA (Body Surface Area) 2.46 m2 Results Test Acquired Date Facility Test Result H/L Range Note Laboratory test finding 12/26/2020 [facility] Main Lab [address] [place] [address] [phone] Pathology Request For Service (SEE NOTE) 1 [...] 1018 Procedures Date Code Description Status 01/03/2021 20514 Office/Outpatient Established Mo d MDM 30-39 Min Completed 12/26/2020 66888 Laryngoscopy Direct Biopsy W/Ope rating Microscope Completed 12/15/2020 20049 Office/Outpatient New Moderate M DM 45-59 Minutes Completed 12/15/2020 62392 Laryngoscopy Flexible Fiberoptic Diagnostic Completed Medical Devices Description No Information Available Encounters Type Date Location Provider Dx Diagnosis Office Visit 01/03/2021 10:00a [facility] Pravin Grace B97.7 Papillomavirus as the cause of diseases classified elsewhere 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 [facility] Closed [address] [address] [phone]
--- OUTSIDE RECORDS SUMMARY | 2021-04-25 15:17 | CCD | Continuity of Care Document ---
Author Author Sebastian PHIPPS MD Organization Unknown Address [address] [facility], [address] [place] [address] Phone [phone] Care Team Providers Care Felt Carbonizer Name Role Phone Reynold Ray M.D. AUTM [phone] Natanael Rosales M.D AUTM [phone] AUTM Unavailable Sdio AUTM [phone] Problems Active Problems Provider Date Essential hypertension [...] every 4 hours as needed reference #: [id number] 30tabs Reynold Phipps MD 12/26/2020 - 12/30/2020 Immunizations Description No Information Available Vital Signs Date Vital Result Comment 04/04/2021 1:32pm BP Systolic 110 mmHg BP Diastolic 80 mmHg Heart Rate 71 /min O2 % BldC Oximetry 92 % Height 68.5 inches 5'8.50" Weight 305.00 lb BMI (Body Mass Index) 45.7 kg/m2 [place] Body Weight 154 lb Weight 138.348 kg BSA (Body Surface Area) 2.46 m2 01/03/2021 9:53am BP Systolic 114 mmHg BP Diastolic 80 mmHg Heart Rate 59 /min O2 % BldC Oximetry 95 % Height 68.5 inches 5'8.50" Weight 304.00 lb BMI (Body Mass Index) 45.5 kg/m2 [place] Body Weight 154 lb Weight 137.894 kg BSA (Body Surface Area) 2.46 m2 Results Test Acquired Date Facility Test Result H/L Range Note Laboratory test finding 12/26/2020 [facility] Main Lab [address] [place] [address] [phone] Pathology Request For Service (SEE NOTE) 1 [...] 1018 Procedures Date Code Description Status 01/03/2021 04541 Office/Outpatient Established Mo d MDM 30-39 Min Completed 12/26/2020 10994 Laryngoscopy Direct Biopsy W/Ope rating Microscope Completed 12/15/2020 58917 Office/Outpatient New Moderate M DM 45-59 Minutes Completed 12/15/2020 42342 Laryngoscopy Flexible Fiberoptic Diagnostic Completed Medical Devices Description No Information Available Encounters Type Date Location Provider Dx Diagnosis Office Visit 01/03/2021 10:00a [facility] Pravin Grace B97.7 Papillomavirus as the cause of diseases classified elsewhere 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 [facility] Closed [address] [address] [phone]
--- OUTSIDE RECORDS SUMMARY | 2021-04-25 15:19 | CCD ---
Author Author [facility] Organization [facility] Address Unknown Phone Unavailable Care Team Providers Care Electronic Sales And Service Technician Name Role Phone Reji Luis Unavailable Unavailable PORTER, A HUEY PA Unavailable Unavailable PORTER, A HUEY PA Unavailable Unavailable PORTER, A HUEY PA Unavailable Unavailable PORTER, A HUEY PA Unavailable Unavailable PORTER, A HUEY PA Unavailable Unavailable PORTER, A HUEY PA Unavailable Unavailable PORTER, A HUEY PA Unavailable Unavailable PORTER, A HUEY PA Unavailable Unavailable PORTER, A HUEY PA Unavailable Unavailable PORTER, A HUEY PA Unavailable Unavailable PORTER, A HUEY PA Unavailable Unavailable PORTER, A HUEY PA Unavailable Unavailable PORTER, A HUEY PA Unavailable Unavailable Shalom MODI MD Unavailable Unavailable Shalom MODI MD Unavailable Unavailable Shalom MODI MD Unavailable Unavailable Shalom MODI MD Unavailable Unavailable Shalom MODI MD Unavailable Unavailable Shalom MODI MD Unavailable Unavailable Shalom MODI MD Unavailable Unavailable Shalom MODI MD Unavailable Unavailable Shalom MODI MD Unavailable Unavailable Shalom MODI MD Unavailable Unavailable Shalom MODI MD Unavailable Unavailable Shalom MODI MD Unavailable Unavailable Shalom MODI MD Unavailable Unavailable Shalom MODI MD Unavailable Unavailable Shalom MODI MD Unavailable Unavailable Shalom MODI MD Unavailable Unavailable Shalom MODI MD Unavailable Unavailable Shalom MODI MD Unavailable Unavailable Shalom MODI MD Unavailable Unavailable Shalom MODI MD Unavailable Unavailable Shalom MODI MD Unavailable Unavailable Shalom MODI MD Unavailable Unavailable Shalom MODI MD Unavailable Unavailable Shalom MODI MD Unavailable Unavailable Shalom MODI MD Unavailable Unavailable Shalom MODI MD Unavailable Unavailable Shalom MODI MD Unavailable Unavailable Shalom MODI MD Unavailable Unavailable Shalom MODI MD Unavailable Unavailable Shalom MODI MD Unavailable Unavailable Shalom MODI MD Unavailable Unavailable Shalom MODI MD Unavailable Unavailable Shalom MODI MD Unavailable Unavailable Shalom MODI MD Unavailable Unavailable Shalom MODI MD Unavailable Unavailable Shalom MODI MD Unavailable Unavailable Shalom MODI MD Unavailable Unavailable Shalom MODI MD Unavailable Unavailable Shalom MODI MD Unavailable Unavailable Shalom MODI MD Unavailable Unavailable Shalom MODI MD Unavailable Unavailable Shalom MODI MD Unavailable Unavailable Shalom MODI MD Unavailable Unavailable Shalom MODI MD Unavailable Unavailable Shalom MODI MD Unavailable Unavailable Shalom MODI MD Unavailable Unavailable Shalom MODI MD Unavailable Unavailable Shalom MODI MD Unavailable Unavailable Shalom MODI MD Unavailable Unavailable Shalom MODI MD Unavailable Unavailable Shalom MODI MD Unavailable Unavailable Shalom MODI MD Unavailable Unavailable Shalom MODI MD Unavailable Unavailable Shalom MODI MD Unavailable Unavailable Shalom MODI MD Unavailable Unavailable Shalom MODI MD Unavailable Unavailable Shalom MODI MD Unavailable Unavailable Shalom MODI MD Unavailable Unavailable Shalom MODI MD Unavailable Unavailable Shalom MODI MD Unavailable Unavailable Shalom MODI MD Unavailable Unavailable Shalom MODI MD Unavailable Unavailable Shalom MODI MD Unavailable Unavailable Shalom MODI MD Unavailable Unavailable Shalom MODI MD Unavailable Unavailable Shalom MODI MD Unavailable Unavailable Shalom MODI MD Unavailable Unavailable Shalom MODI MD Unavailable Unavailable Shalom MODI MD Unavailable Unavailable Shalom MODI MD Unavailable Unavailable Shalom MODI MD Unavailable Unavailable Shalom MODI MD Unavailable Unavailable Shalom MODI MD Unavailable Unavailable Shalom MODI MD Unavailable Unavailable JUAN, Shalom KEY MD Unavailable Unavailable JUAN, Shalom KEY MD Unavailable Unavailable JUAN, Shalom KEY MD Unavailable Unavailable JUAN, Shalom KEY MD Unavailable Unavailable JUAN, Shalom KEY MD Unavailable Unavailable JUAN, J YESI GRAJEDA Unavailable Unavailable JUAN, J YESI GRAJEDA Unavailable Unavailable JUAN, J YESI GRAJEDA Unavailable Unavailable JUAN, J YESI GRAJEDA Unavailable Unavailable JUAN, J YESI GRAJEDA Unavailable Unavailable JUAN, J YESI GRAJEDA Unavailable Unavailable JUAN, J YESI GRAJEDA Unavailable Unavailable JUAN, J YESI GRAJEDA Unavailable Unavailable JUAN, J YESI GRAJEDA Unavailable Unavailable JUAN, J YESI GRAJEDA Unavailable Unavailable JUAN, J YESI GRAJEDA Unavailable Unavailable JUAN, J YESI GRAJEDA Unavailable Unavailable JUAN, J YESI GRAJEDA Unavailable Unavailable JUAN, J YESI MD Unavailable Unavailable JUAN, J YESI GRAJEDA Unavailable Unavailable Hadian, Natanael Unavailable Unavailable Hadian, Natanael Unavailable Unavailable Hadian, Natanael Unavailable Unavailable Hadian, Natanael Unavailable Unavailable Hadian, Natanael Unavailable Unavailable Hadian, Natanael Unavailable Unavailable Hadian, Natanael Unavailable Unavailable Hadian, Nataneal Unavailable Unavailable Hadian, Natanael Unavailable Unavailable Hadian, Natanael Unavailable Unavailable Hadian, Natanael Unavailable Unavailable Hadian, Natanael Unavailable Unavailable Hadian, Natanael Unavailable Unavailable Hadian, Natanael Unavailable Unavailable Hadian, Natanael Unavailable Unavailable Hadian, Natanael Unavailable Unavailable Hadian, Natanael Unavailable Unavailable Hadian, Natanael Unavailable Unavailable Hadian, Natanael Unavailable Unavailable Hadian, Natanael Unavailable Unavailable Hadian, Natanael Unavailable Unavailable Hadian, Natanael Unavailable Unavailable Hadian, Natanael Unavailable Unavailable Hadian, Natanael Unavailable Unavailable Hadian, Natanael Unavailable Unavailable Hadian, Natanael Unavailable Unavailable Hadian, Natanael Unavailable Unavailable Hadian, Natanael Unavailable Unavailable Hadian, Natanael Unavailable Unavailable Hadian, Natanael Unavailable Unavailable Hadian, Natanael Unavailable Unavailable Hadian, Natanael Unavailable Unavailable Hadian, Natanael Unavailable Unavailable Hadian, Natanael Unavailable Unavailable Hadian, Natanael Unavailable Unavailable Hadian, Natanael Unavailable Unavailable Hadian, Natanael Unavailable Unavailable Hadian, Natanael Unavailable Unavailable Hadian, Natanael Unavailable Unavailable Hadian, Natanael Unavailable Unavailable Hadian, Natanael Unavailable Unavailable Hadian, Natanael Unavailable Unavailable Leela Nguyen Unavailable Nguyen, R Regis PA Unavailable Nguyen, R Regis PA Unavailable Nguyen, R Regis PA Unavailable Nguyen, R Regis PA Unavailable Nguyen, R Regis PA Unavailable Nguyen, R Regis PA Unavailable Nguyen, R Regis PA Unavailable Nguyen, R Regis PA Unavailable Nguyen, R Regis PA Unavailable Nguyen, R Regis PA Unavailable Marcelino FARMER M.D. Unavailable Unavailable Marcelino FARMER M.D. Unavailable Unavailable Marcelino FARMER M.D. Unavailable Unavailable Marcelino FARMER M.D. Unavailable Unavailable Marcelino FARMER M.D. Unavailable Unavailable Marcelino FARMER M.D. Unavailable Unavailable Marcelino FARMER M.D. Unavailable Unavailable Marcelino FARMER PARRY M.D. Unavailable Unavailable Marcelino FARMER M.D. Unavailable Unavailable Marcelino FARMER M.D. Unavailable Unavailable Marcelino FARMER PARRY M.D. Unavailable Unavailable Marcelino FARMER M.D. Unavailable Unavailable Marcelino FARMER M.D. Unavailable Unavailable Marcelino FARMER PARRY M.D. Unavailable Unavailable DOWD, EMILIANO CATHERINE DISTRIBUTED GENERATION PROJECT MANAGER Unavailable Unavailable DOWD, EMILIANO CATHERINE DISTRIBUTED GENERATION PROJECT MANAGER Unavailable Unavailable DOWD, EMILIANO CATHERINE DISTRIBUTED GENERATION PROJECT MANAGER Unavailable Unavailable DOWD, EMILIANO CATHERINE DISTRIBUTED GENERATION PROJECT MANAGER Unavailable Unavailable DOWD, EMILIANO CATHERINE DISTRIBUTED GENERATION PROJECT MANAGER Unavailable Unavailable DOWD, EMILIANO CATHERINE DISTRIBUTED GENERATION PROJECT MANAGER Unavailable Unavailable DOWD, EMILIANO CATHERINE DISTRIBUTED GENERATION PROJECT MANAGER Unavailable Unavailable DOWD, EMILIANO CATHERINE DISTRIBUTED GENERATION PROJECT MANAGER Unavailable Unavailable DOWD, EMILIANO CATHERINE DISTRIBUTED GENERATION PROJECT MANAGER Unavailable Unavailable DOWD, EMILIANO CATHERINE DISTRIBUTED GENERATION PROJECT MANAGER Unavailable Unavailable DOWD, EMILIANO CATHERINE DISTRIBUTED GENERATION PROJECT MANAGER Unavailable Unavailable DOWD, EMILIANO CATHERINE DISTRIBUTED GENERATION PROJECT MANAGER Unavailable Unavailable DOWD, EMILIANO CATHERINE DISTRIBUTED GENERATION PROJECT MANAGER Unavailable Unavailable DOWD, EMILIANO CATHERINE DISTRIBUTED GENERATION PROJECT MANAGER Unavailable Unavailable DOWD, EMILIANO CATHERINE DISTRIBUTED GENERATION PROJECT MANAGER Unavailable Unavailable DOWD, EMILIANO CATHERINE DISTRIBUTED GENERATION PROJECT MANAGER Unavailable Unavailable DOWD, EMILIANO CATHERINE DISTRIBUTED GENERATION PROJECT MANAGER Unavailable Unavailable DOWD, EMILIANO CATHERINE DISTRIBUTED GENERATION PROJECT MANAGER Unavailable Unavailable DOWD, EMILIANO CATHERINE DISTRIBUTED GENERATION PROJECT MANAGER Unavailable Unavailable DOWD, EMILIANO CATHERINE DISTRIBUTED GENERATION PROJECT MANAGER Unavailable Unavailable DOWD, EMILIANO CATHERINE DISTRIBUTED GENERATION PROJECT MANAGER Unavailable Unavailable DOWD, EMILIANO CATHERINE DISTRIBUTED GENERATION PROJECT MANAGER Unavailable Unavailable DOWD, EMILIANO CATHERINE DISTRIBUTED GENERATION PROJECT MANAGER Unavailable Unavailable DOWD, EMILIANO CATHERINE DISTRIBUTED GENERATION PROJECT MANAGER Unavailable Unavailable DOWD, EMILIANO CATHERINE DISTRIBUTED GENERATION PROJECT MANAGER Unavailable Unavailable DOWD, EMILIANO CATHERINE DISTRIBUTED GENERATION PROJECT MANAGER Unavailable Unavailable DOWD, EMILIANO CATHERINE DISTRIBUTED GENERATION PROJECT MANAGER Unavailable Unavailable DOWD, EMILIANO CATHERINE DISTRIBUTED GENERATION PROJECT MANAGER Unavailable Unavailable DOWD, EMILIANO CATHERINE DISTRIBUTED GENERATION PROJECT MANAGER Unavailable Unavailable DOWD, EMILIANO CATHERINE DISTRIBUTED GENERATION PROJECT MANAGER Unavailable Unavailable DOWD, EMILIANO CATHERINE DISTRIBUTED GENERATION PROJECT MANAGER Unavailable Unavailable DOWD, EMILIANO CATHERINE DISTRIBUTED GENERATION PROJECT MANAGER Unavailable Unavailable DOWD, EMILIANO CATHERINE DISTRIBUTED GENERATION PROJECT MANAGER Unavailable Unavailable DOWD, EMILIANO CATHERINE DISTRIBUTED GENERATION PROJECT MANAGER Unavailable Unavailable DOWD, EMILIANO CATHERINE DISTRIBUTED GENERATION PROJECT MANAGER Unavailable Unavailable DOWD, EMILIANO CATHERINE DISTRIBUTED GENERATION PROJECT MANAGER Unavailable Unavailable DOWD, EMILIANO CATHERINE DISTRIBUTED GENERATION PROJECT MANAGER Unavailable Unavailable DOWD, EMILIANO CATHERINE DISTRIBUTED GENERATION PROJECT MANAGER Unavailable Unavailable DOWD, EMILIANO CATHERINE DISTRIBUTED GENERATION PROJECT MANAGER Unavailable Unavailable DOWD, EMILIANO CATHERINE DISTRIBUTED GENERATION PROJECT MANAGER Unavailable Unavailable DOWD, EMILIANO CATHERINE DISTRIBUTED GENERATION PROJECT MANAGER Unavailable Unavailable DOWD, EMILIANO CATHERINE DISTRIBUTED GENERATION PROJECT MANAGER Unavailable Unavailable DOWD, EMILIANO CATHERINE DISTRIBUTED GENERATION PROJECT MANAGER Unavailable Unavailable DOWD, EMILIANO CATHERINE DISTRIBUTED GENERATION PROJECT MANAGER Unavailable Unavailable DOWD, EMILIANO CATHERINE DISTRIBUTED GENERATION PROJECT MANAGER Unavailable Unavailable DOWD, EMILIANO CATHERINE DISTRIBUTED GENERATION PROJECT MANAGER Unavailable Unavailable DOWD, EMILIANO CATHERINE DISTRIBUTED GENERATION PROJECT MANAGER Unavailable Unavailable DOWD, EMILIANO CATHERINE DISTRIBUTED GENERATION PROJECT MANAGER Unavailable Unavailable DOWD, EMILIANO CATHERINE DISTRIBUTED GENERATION PROJECT MANAGER Unavailable Unavailable DOWD, EMILIANO CATHERINE DISTRIBUTED GENERATION PROJECT MANAGER Unavailable Unavailable Shalom MODI MD Unavailable Unavailable Shalom MODI MD Unavailable Unavailable Shalom MODI MD Unavailable Unavailable Shalom MODI MD Unavailable Unavailable Shalom MODI MD Unavailable Unavailable Shalom MODI MD Unavailable Unavailable Shalom MODI MD Unavailable Unavailable Shalom MODI MD Unavailable Unavailable Shalom MODI MD Unavailable Unavailable Shalom MODI MD Unavailable Unavailable Shalom MODI MD Unavailable Unavailable Shalom MODI MD Unavailable Unavailable Shalom MODI MD Unavailable Unavailable Shalom MODI MD Unavailable Unavailable Shalom MODI MD Unavailable Unavailable Shalom MODI MD Unavailable Unavailable Shalom MODI MD Unavailable Unavailable Shalom MODI MD Unavailable Unavailable Shalom MODI MD Unavailable Unavailable Shalom MODI MD Unavailable Unavailable Shalom MODI MD Unavailable Unavailable Shalom MODI MD Unavailable Unavailable Shalom MODI MD Unavailable Unavailable Shalom MODI MD Unavailable Unavailable Shalom MODI MD Unavailable Unavailable Shalom MODI MD Unavailable Unavailable Shalom MODI MD Unavailable Unavailable Shalom MODI MD Unavailable Unavailable Shalom MODI MD Unavailable Unavailable Shalom MODI MD Unavailable Unavailable Shalom MODI MD Unavailable Unavailable Shalom MODI MD Unavailable Unavailable Shalom MODI MD Unavailable Unavailable Shalom MODI MD Unavailable Unavailable Shalom MODI MD Unavailable Unavailable Shalom MODI MD Unavailable Unavailable Shalom MODI MD Unavailable Unavailable Shalom MODI MD Unavailable Unavailable Shalom MODI MD Unavailable Unavailable Shalom MODI MD Unavailable Unavailable Shalom MODI MD Unavailable Unavailable Shalom MODI MD Unavailable Unavailable Shalom MODI MD Unavailable Unavailable Shalom MODI MD Unavailable Unavailable Shalom MODI MD Unavailable Unavailable Shalom MODI MD Unavailable Unavailable Shalom MODI MD Unavailable Unavailable Shalom MODI MD Unavailable Unavailable Shalom MODI MD Unavailable Unavailable Shalom MODI MD Unavailable Unavailable Shalom MODI MD Unavailable Unavailable Shalom MODI MD Unavailable Unavailable Shalom MODI MD Unavailable Unavailable Shalom MODI MD Unavailable Unavailable Shalom MODI MD Unavailable Unavailable Shalom MODI MD Unavailable Unavailable Shalom MODI MD Unavailable Unavailable Shalom OMDI MD Unavailable Unavailable Shalom MODI MD Unavailable Unavailable Shalom MODI MD Unavailable Unavailable Shalom MODI MD Unavailable Unavailable Shalom MODI MD Unavailable Unavailable Shalom MODI MD Unavailable Unavailable Shalom MODI MD Unavailable Unavailable Shalom MODI MD Unavailable Unavailable Shalom MODI MD Unavailable Unavailable Shalom MODI MD Unavailable Unavailable Shalom MODI MD Unavailable Unavailable Shalom MODI MD Unavailable Unavailable Shalom MODI MD Unavailable Unavailable Shalom MODI MD Unavailable Unavailable Shalom MODI MD Unavailable Unavailable Shalom MODI MD Unavailable Unavailable Shalom MODI MD Unavailable Unavailable Shalom MODI MD Unavailable Unavailable Shalom MODI MD Unavailable Unavailable Shalom MODI MD Unavailable Unavailable Shalom MODI MD Unavailable Unavailable Shalom MODI MD Unavailable Unavailable Shalom MODI MD Unavailable Unavailable Shalom MODI MD Unavailable Unavailable Shalom MODI MD Unavailable Unavailable Shalom MODI MD Unavailable Unavailable Shalom MODI MD Unavailable Unavailable Shalom MODI MD Unavailable Unavailable Shalom MODI MD Unavailable Unavailable Shalom MODI MD Unavailable Unavailable Shalom MODI MD Unavailable Unavailable Shalom MODI MD Unavailable Unavailable Shalom MODI MD Unavailable Unavailable Shalom MODI MD Unavailable Unavailable Shalom MODI MD Unavailable Unavailable Shalom MODI MD Unavailable Unavailable Shalom MODI MD Unavailable Unavailable Nano Kirk MD Unavailable Unavailable Ross, H Christiana PRODUCT DESIGNER Unavailable [phone] Ross, H Christiana PRODUCT DESIGNER Unavailable [phone] Ross, H Christiana PRODUCT DESIGNER Unavailable [phone] Ross, H Christiana PRODUCT DESIGNER Unavailable [phone] Ross, H Christiana PRODUCT DESIGNER Unavailable [phone] Ross, H Christiana PRODUCT DESIGNER Unavailable [phone] Ross, H Christiana PRODUCT DESIGNER Unavailable [phone] Ross, H Christiana PRODUCT DESIGNER Unavailable [phone] Qandah, Basem Raj Aziz DO Unavailable Unavailab le Qandah, Basem Raj Aziz DO Unavailable Unavailab le Qandah, Basem Raj Aziz DO Unavailable Unavailab le Qandah, Basem Raj Aziz DO Unavailable Unavailab le Qandah, Basem Raj Aziz DO Unavailable Unavailab le Qandah, Basem Raj Aziz DO Unavailable Unavailab le Qandah, Basem Raj Aziz DO Unavailable Unavailab le Qandah, Basem Raj Aziz DO Unavailable Unavailab le Qandah, Basem Raj Aziz DO Unavailable Unavailab le Qandah, Basem Raj Aziz DO Unavailable Unavailab le Qandah, Basem Raj Aziz DO Unavailable Unavailab le Qandah, Basem Raj Aziz DO Unavailable Unavailab le Qandah, Basem Raj Aziz DO Unavailable Unavailab le Qandah, Basem Raj Aziz DO Unavailable Unavailab le Qandah, Basem Raj Aziz DO Unavailable Unavailab le Qandah, Basem Raj Aziz DO Unavailable Unavailab le Qandah, Basem Raj Aziz DO Unavailable Unavailab le Qandah, Basem Raj Aziz DO Unavailable Unavailab le Qandah, Basem Raj Aziz DO Unavailable Unavailab le Qandah, Basem Raj Aziz DO Unavailable Unavailab le Qandah, Basem Raj Aziz DO Unavailable Unavailab le Qandah, Basem Raj Aziz DO Unavailable Unavailab le Qandah, Basem Raj Aziz DO Unavailable Unavailab le Qandah, Basem Raj Aziz DO Unavailable Unavailab le Qandah, Basem Raj Aziz DO Unavailable Unavailab le Qandah, Basem Raj Aziz DO Unavailable Unavailab le Qandah, Basem Raj Aziz DO Unavailable Unavailab le Qandah, Basem Raj Aziz DO Unavailable Unavailab le Qandah, Basem Raj Aziz DO Unavailable Unavailab le Qandah, Basem Raj Aziz DO Unavailable Unavailab le Qandah, Basem Raj Aziz DO Unavailable Unavailab le Qandah, Basem Raj Aziz DO Unavailable Unavailab le Qandah, Basem Raj Aziz DO Unavailable Unavailab le Qandah, Basem Raj Aziz DO Unavailable Unavailab le Qandah, Basem Raj Aziz DO Unavailable Unavailab le Qandah, Basem Raj Aziz DO Unavailable Unavailab le Qandah, Basem Raj Aziz DO Unavailable Unavailab le Qandah, Basem Raj Aziz DO Unavailable Unavailab le Qandah, Basem Raj Aziz DO Unavailable Unavailab le Qandah, Basem Raj Aziz DO Unavailable Unavailab le Qandah, Basem Raj Aziz DO Unavailable Unavailab le Qandah, Basem Raj Aziz DO Unavailable Unavailab le Qandah, Basem Raj Aziz DO Unavailable Unavailab le Qandah, Basem Raj Aziz DO Unavailable Unavailab le Qandah, Basem Raj Aziz DO Unavailable Unavailab le Qandah, Basem Raj Aziz DO Unavailable Unavailab le Qandah, Basem Raj Aziz DO Unavailable Unavailab le Qandah, Basem Raj Aziz DO Unavailable Unavailab le Qandah, Basem Raj Aziz DO Unavailable Unavailab le Qandah, Basem Raj Aziz DO Unavailable Unavailab le Qandah, Basem Raj Aziz DO Unavailable Unavailab le Qandah, Basem Raj Aziz DO Unavailable Unavailab le Qandah, Basem Raj Aziz DO Unavailable Unavailab le Qandah, Basem Raj Aziz DO Unavailable Unavailab le Qandah, Basem Raj Aziz DO Unavailable Unavailab le Qandah, Basem Raj Aziz DO Unavailable Unavailab le Qandah, Basem Raj Aziz DO Unavailable Unavailab le Qandah, Basem Raj Aziz DO Unavailable Unavailab le Qandah, Basem Raj Aziz DO Unavailable Unavailab le Qandah, Basem Raj Aziz DO Unavailable Unavailab le Qandah, Basem Raj Aziz DO Unavailable Unavailab le Qandah, Basem Raj Aziz DO Unavailable Unavailab le Qandah, Basem Raj Aziz DO Unavailable Unavailab le Qandah, Basem Raj Aziz DO Unavailable Unavailab le Qandah, Basem Raj Aziz DO Unavailable Unavailab le Qandah, Basem Raj Aziz DO Unavailable Unavailab le Qandah, Basem Arj Aziz DO Unavailable Unavailab le Qandah, Basem Raj Aziz DO Unavailable Unavailab le Qandah, Basem Raj Aziz DO Unavailable Unavailab le Qandah, Basem Raj Aziz DO Unavailable Unavailab le Qandah, Basem Raj Aziz DO Unavailable Unavailab le Qandah, Basem Raj Aziz DO Unavailable Unavailab le Qandah, Basem Raj Aziz DO Unavailable Unavailab le Qandah, Basem Raj Aziz DO Unavailable Unavailab le Qandah, Basem Raj Aziz DO Unavailable Unavailab le Qandrell, Basenano Dangelo DO Unavailable Unavailab le Bolla, Akua Jones MD Unavailable Unavailable Bolgabi, Akua Jones MD Unavailable Unavailable Bolla, Akua Jones MD Unavailable Unavailable Bolgabi, Akua Jones MD Unavailable Unavailable Bolla, Akua Jones MD Unavailable Unavailable Bolgabi, Akua Jones MD Unavailable Unavailable Bolla, Akua Jones MD Unavailable Unavailable Bolla, Akua Jones MD Unavailable Unavailable Bolla, Akua Jones MD Unavailable Unavailable Bolgabi, Akua Jones MD Unavailable Unavailable Bolla, Akua Jones MD Unavailable Unavailable Bolla, Akua Jones MD Unavailable Unavailable Bolla, Akua Jones MD Unavailable Unavailable Bolla, Akua Jones MD Unavailable Unavailable Bolla, Akua Jones MD Unavailable Unavailable Bolla, Akua Jones MD Unavailable Unavailable Bolla, Akua Jones MD Unavailable Unavailable Bolla, Akua Jones MD Unavailable Unavailable Bolgabi, Akua Jones MD Unavailable Unavailable Bolgabi, Akua Jones MD Unavailable Unavailable Bolgabi, Akua Jones MD Unavailable Unavailable Bolgabi, Akua Jones MD Unavailable Unavailable Bolgabi, Akua Jones MD Unavailable Unavailable BolAkua ashley MD Unavailable Unavailable Bolgabi, Akua Jones MD Unavailable Unavailable Bolgabi, Akua Jones MD Unavailable Unavailable BolAkua ashley MD Unavailable Unavailable Bolgabi, Akua Jones MD Unavailable Unavailable Bolgabi, Akua Jones MD Unavailable Unavailable BolAkua ashley MD Unavailable Unavailable BolAkua ashley MD Unavailable Unavailable BolAkua ashley MD Unavailable Unavailable BolAkua ashley MD Unavailable Unavailable Bolgabi, Akua Jones MD Unavailable Unavailable BolAkua ashley MD Unavailable Unavailable BolAkua ashley MD Unavailable Unavailable BolAkua ashley MD Unavailable Unavailable BolAkua ashley MD Unavailable Unavailable BolAkua ashley MD Unavailable Unavailable BolAkua ashley MD Unavailable Unavailable Bolgabi, Akua Jones MD Unavailable Unavailable BolAkua ashley MD Unavailable Unavailable Bolgabi, Akua Jones MD Unavailable Unavailable BolAkua ashley MD Unavailable Unavailable Bolgabi, Akua Jones MD Unavailable Unavailable Bolgabi, Akua Jones MD Unavailable Unavailable Bolgabi, Akua Jones MD Unavailable Unavailable Bolla, Akua Jones MD Unavailable Unavailable BolAkua ashley MD Unavailable Unavailable Shalom KERNS MD Unavailable Unavailable Shalom KERNS MD Unavailable Unavailable Shalom KERNS MD Unavailable Unavailable Shalom KERNS MD Unavailable Unavailable Shalom KERNS MD Unavailable Unavailable Shalom KERNS MD Unavailable Unavailable Shalom KERNS MD Unavailable Unavailable Shalom KERNS MD Unavailable Unavailable Shalom KERNS MD Unavailable Unavailable Shalom KERNS MD Unavailable Unavailable Shalom KERNS MD Unavailable Unavailable Shalom KERNS MD Unavailable Unavailable Shalom KERNS MD Unavailable Unavailable Shalom KERNS MD Unavailable Unavailable Shalom KERNS MD Unavailable Unavailable Shalom KERNS MD Unavailable Unavailable Shalom KERNS MD Unavailable Unavailable Shalom KERNS MD Unavailable Unavailable Shalom KERNS MD Unavailable Unavailable Shalom KERNS MD Unavailable Unavailable Shalom KERNS MD Unavailable Unavailable Shalom KERNS MD Unavailable Unavailable Shalom KERNS MD Unavailable Unavailable Shalom KERNS MD Unavailable Unavailable Shalom KERNS MD Unavailable Unavailable Shalom KERNS MD Unavailable Unavailable Shalom KERNS MD Unavailable Unavailable Shalom KERNS MD Unavailable Unavailable Shalom KERNS MD Unavailable Unavailable Shalom KERNS MD Unavailable Unavailable Shalom KERNS MD Unavailable Unavailable Shalom KERNS MD Unavailable Unavailable Shalom KERNS MD Unavailable Unavailable Shalom KERNS MD Unavailable Unavailable Shalom KERNS MD Unavailable Unavailable Shalom KERNS MD Unavailable Unavailable Shalom KERNS MD Unavailable Unavailable Shalom KERNS MD Unavailable Unavailable Shalom KERNS MD Unavailable Unavailable Shalom KERNS MD Unavailable Unavailable Shalom KERNS MD Unavailable Unavailable Shalom KERNS MD Unavailable Unavailable Shalom KERNS MD Unavailable Unavailable Shalom KERNS MD Unavailable Unavailable Shalom KERNS MD Unavailable Unavailable Shalom KERNS MD Unavailable Unavailable Shalom KERNS MD Unavailable Unavailable Shalom KERNS MD Unavailable Unavailable Shalom KERNS MD Unavailable Unavailable Shalom KERNS MD Unavailable Unavailable Shalom KERNS MD Unavailable Unavailable Shalom KERNS MD Unavailable Unavailable Shalom KERNS MD Unavailable Unavailable Shalom KERNS MD Unavailable Unavailable Shalom KERNS MD Unavailable Unavailable Shalom KERNS MD Unavailable Unavailable Shalom KERNS MD Unavailable Unavailable Shalom KERNS MD Unavailable Unavailable Shalom KERNS MD Unavailable Unavailable Shalom KERNS MD Unavailable Unavailable Shalom KERNS MD Unavailable Unavailable Shalom KERNS MD Unavailable Unavailable Shalom KERNS MD Unavailable Unavailable Shalom KERNS MD Unavailable Unavailable Shalom KERNS MD Unavailable Unavailable Shalom KERNS MD Unavailable Unavailable Shalom KERNS MD Unavailable Unavailable Shalom KERNS MD Unavailable Unavailable Shalom KERNS MD Unavailable Unavailable Shalom KERNS MD Unavailable Unavailable Shalom KERNS MD Unavailable Unavailable Shalom KERNS MD Unavailable Unavailable Hadian, Natanael Unavailable Unavailable Hadian, Natanael Unavailable Unavailable Hadian, Natanael Unavailable Unavailable Hadian, Natanael Unavailable Unavailable Hadian, Natanael Unavailable Unavailable Hadian, Natanael Unavailable Unavailable Hadian, Natanael Unavailable Unavailable Hadian, Natanael Unavailable Unavailable Hadian, Natanael Unavailable Unavailable Hadian, Natanael Unavailable Unavailable Hadian, Natanael Unavailable Unavailable Hadian, Natanael Unavailable Unavailable Hadian, Natanael Unavailable Unavailable Hadian, Natanael Unavailable Unavailable Hadian, Natanael Unavailable Unavailable Hadian, Natanael Unavailable Unavailable Hadian, Natanael Unavailable Unavailable Hadian, Natanael Unavailable Unavailable Hadian, Natanael Unavailable Unavailable Hadian, Natanael Unavailable Unavailable Hadian, Natanael Unavailable Unavailable Hadian, Natanael Unavailable Unavailable Hadian, Natanael Unavailable Unavailable Hadian, Natanael Unavailable Unavailable Hadian, Natanael Unavailable Unavailable Hadian, Natanael Unavailable Unavailable Hadian, Natanael Unavailable Unavailable Hadian, Natanael Unavailable Unavailable Hadian, Natanael Unavailable Unavailable Hadian, Natanael Unavailable Unavailable Hadian, Natanael Unavailable Unavailable Hadian, Natanael Unavailable Unavailable Hadian, Natanael Unavailable Unavailable Hadian, Natanael Unavailable Unavailable Hadian, Natanael Unavailable Unavailable Hadian, Natanael Unavailable Unavailable Hadian, Natanael Unavailable Unavailable Hadian, Natanael Unavailable Unavailable Hadian, Natanael Unavailable Unavailable Hadian, Natanael Unavailable Unavailable Hadian, Natanael Unavailable Unavailable Hadian, Natanael Unavailable Unavailable ZEGIL, D HARIS CRIMINALIST TECHNICIAN Unavailable Unavailable ZEGIL, D HARIS CRIMINALIST TECHNICIAN Unavailable Unavailable ZEGIL, D HARIS CRIMINALIST TECHNICIAN Unavailable Unavailable SOUTH PAL MD Unavailable Unavailable SOUTH PAL MD Unavailable Unavailable SOUTH PAL MD Unavailable Unavailable SOUTH PAL MD Unavailable Unavailable SOUTH PAL MD Unavailable Unavailable SOUTH PAL MD Unavailable Unavailable SOUTH PAL MD Unavailable Unavailable SOUTH PAL MD Unavailable Unavailable SOUTH PAL MD Unavailable Unavailable SOUTH PAL MD Unavailable Unavailable SOUTH PAL MD Unavailable Unavailable SOUTH PAL MD Unavailable Unavailable SOUTH PAL MD Unavailable Unavailable DEMARCO, SOUTH GRAJEDA Unavailable Unavailable DEMARCO, SOUTH GRAJEDA Unavailable Unavailable DEMARCO, SOUTH GRAJEDA Unavailable Unavailable DEMARCO, SOUTH GRAJEDA Unavailable Unavailable DEMARCO, SOUTH GRAJEDA Unavailable Unavailable DEMARCO, SOUTH GRAJEDA Unavailable Unavailable DEMARCO, SOUTH GRAJEDA Unavailable Unavailable DEMARCO, SOUTH GRAJEDA Unavailable Unavailable DEMARCO, SOUTH GRAJEDA Unavailable Unavailable DEMARCO, SOUTH GRAJEDA Unavailable Unavailable DEMARCO, SOUTH GRAJEDA Unavailable Unavailable DEMARCO, SOUTH GRAJEDA Unavailable Unavailable DEMARCO, SOUTH GRAJEDA Unavailable Unavailable DEMARCO, SOUTH GRAJEDA Unavailable Unavailable DEMARCO, SOUTH GRAJEDA Unavailable Unavailable DEMARCO, SOUTH GRAJEDA Unavailable Unavailable DEMARCO, SOUTH GRAJEDA Unavailable Unavailable DEMARCO, SOUTH GRAJEDA Unavailable Unavailable DEMARCO, SOUTH GRAJEDA Unavailable Unavailable DEMARCO, SOUTH GRAJEDA Unavailable Unavailable DEMARCO, SOUTH GRAJEDA Unavailable Unavailable DEMARCO, SOUTH GRAJEDA Unavailable Unavailable DEMARCO, SOUTH GRAJEDA Unavailable Unavailable DEMARCO, SOUTH GRAJEDA Unavailable Unavailable DEMARCO, SOUTH GRAJEDA Unavailable Unavailable DEMARCO, SOUTH GRAJEDA Unavailable Unavailable DEMARCO, SOUTH GRAJEDA Unavailable Unavailable DEMARCO, SOUTH GRAJEDA Unavailable Unavailable DEMARCO, SOUTH GRAJEDA Unavailable Unavailable DEMARCO, SOUTH GRAJEDA Unavailable Unavailable DEMARCO, SOUTH GRAJEDA Unavailable Unavailable DEMARCO, SOUTH GRAJEDA Unavailable Unavailable DEMARCO, SOUTH GRAJEDA Unavailable Unavailable DEMARCO, SOUTH GRAJEDA Unavailable Unavailable DEMARCO, SOUTH GRAJEDA Unavailable Unavailable DEMARCO, SOUTH GRAJEDA Unavailable Unavailable DEMARCO, SOUTH GRAJEDA Unavailable Unavailable DEMARCO, SOUTH GRAJEDA Unavailable Unavailable DEMARCO, SOUTH GRAJEDA Unavailable Unavailable DEMARCO, SOUTH GRAJEDA Unavailable Unavailable DEMARCO, SOUTH GRAJEDA Unavailable Unavailable DEMARCO, SOUTH GRAJEDA Unavailable Unavailable Jessica Kirk MD, ND Unavailable [phone] Jessica Kirk MD, ND Unavailable [phone] Jessica Kirk MD, ND Unavailable [phone] Jessica Kirk MD, ND Unavailable [phone] Jessica Kirk MD, ND Unavailable [phone] Jessica Kirk MD, ND Unavailable [phone] Jessica Kirk MD, ND Unavailable [phone] Jessica Kirk MD, ND Unavailable [phone] Jessica Kirk MD, ND Unavailable [phone] Jessica Kirk MD, ND Unavailable [phone] Jessica Kirk MD, ND Unavailable [phone] Reagan GRAJEDA, Jessica ND Unavailable [phone] Reagan GRAJEDADanaly ND Unavailable [phone] Reagan GRAJEDADanaly ND Unavailable [phone] Reagan GRAJEDAJessica ND Unavailable [phone] Reagan GRAJEDADanaly ND Unavailable [phone] Reagan GRAJEDADanaly ND Unavailable [phone] Reagan GRAJEDADanaly ND Unavailable [phone] Reagan GRAJEDADanaly ND Unavailable [phone] Reagan GRAJEDADanaly ND Unavailable [phone] Reagan GRAJEDAJessica ND Unavailable [phone] Reagan GRAJEDAJessica ND Unavailable [phone] Reagan GRAJEDAJessica ND Unavailable [phone] Reagan GRAJEDAJessica ND Unavailable [phone] Reagan GRAJEDAJessica ND Unavailable [phone] Reagan GRAJEDAJessica ND Unavailable [phone] Reagan GRAJEDAJessica ND Unavailable [phone] Reagan GRAJEDAJessica ND Unavailable [phone] Reagan GRAJEDAJessica ND Unavailable [phone] Reagan GRAJEDAJessica ND Unavailable [phone] Reagan GRAJEDAJessica ND Unavailable [phone] Bandar Spangler JR Unavailable Unavailable Bandar Spangler JR Unavailable Unavailable Bandar Spangler JR Unavailable Unavailable Bandar Spangler JR Unavailable Unavailable Bandar Spangler JR Unavailable Unavailable Bandar Spangler JR Unavailable Unavailable Bandar Spangler JR Unavailable Unavailable Bandar Spangler JR Unavailable Unavailable VanArnam JR, W Carlos PA Unavailable Unavailable VanArnam JR, W Carlos PA Unavailable Unavailable VanArnam JR, W Carlos PA Unavailable Unavailable VanArnam JR, W Carlos PA Unavailable Unavailable VanArnam JR, W Carlos PA Unavailable Unavailable VanArnam JR, W Carlos PA Unavailable Unavailable VanArnam JR, W Carlos PA Unavailable Unavailable VanArnam JR, W Carlos PA Unavailable Unavailable VanArnam JR, W Carlos PA Unavailable Unavailable VanArnam JR, W Carlos PA Unavailable Unavailable VanArnam JR, W Carlos PA Unavailable Unavailable VanArnam JR, W Carlos PA Unavailable Unavailable VanArnam JR, W Carlos PA Unavailable Unavailable VanArnam JR, W Carlos PA Unavailable Unavailable VanArnam JR, W Carlos PA Unavailable Unavailable VanArnam JR, W Carlos PA Unavailable Unavailable VanArnam JR, W Carlos PA Unavailable Unavailable VanArnam JR, W Carlos PA Unavailable Unavailable VanArnam JR, W Carlos PA Unavailable Unavailable VanArnam JR, W Carlos PA Unavailable Unavailable VanArnam JR, W Carlos PA Unavailable Unavailable VanArnam JR, W Carlos PA Unavailable Unavailable VanArnam JR, W Carlos PA Unavailable Unavailable VanArnam JR, W Carlos PA Unavailable Unavailable VanArnam JR, W Carlos PA Unavailable Unavailable VanArnam JR, W Carlos PA Unavailable Unavailable VanArnam JR, W Carlos PA Unavailable Unavailable VanArnam JR, W Carlos PA Unavailable Unavailable VanArnam JR, W Carlos PA Unavailable Unavailable VanArnam JR, W Carlos PA Unavailable Unavailable VanArnam JR, W Carlos PA Unavailable Unavailable VanArnam JR, W Carlos PA Unavailable Unavailable VanArnam JR, W Carlos PA Unavailable Unavailable VanArnam JR, W Carlos PA Unavailable Unavailable VanArnam JR, W Carlos PA Unavailable Unavailable Pradip Earl MD Unavailable Unavailable Shalom Saab MD Unavailable [phone] Shalom Saab MD Unavailable [phone] Shalom Saab MD Unavailable [phone] Shalom Saab MD Unavailable [phone] Shalom Saab MD Unavailable [phone] Shalom Saab MD Unavailable [phone] Shalom Saab MD Unavailable [phone] Shalom Saab MD Unavailable [phone] Shalom Saab MD Unavailable [phone] Shalom Saab MD Unavailable [phone] Shalom Saab MD Unavailable [phone] Pradip Earl MD Unavailable Unavailable Pradip Earl MD Unavailable Unavailable Carangelo, Jose PA Unavailable Unavailable Carangelo, Jose PA Unavailable Unavailable Carangelo, Jose PA Unavailable Unavailable Carangelo, Jose PA Unavailable Unavailable Carangelo, Jose PA Unavailable Unavailable Carangelo, Jose PA Unavailable Unavailable Carangelo, Jose PA Unavailable Unavailable Carangelo, Jose PA Unavailable Unavailable Carangelo, Jose PA Unavailable Unavailable Carangelo, Jose PA Unavailable Unavailable Carangelo, Jose PA Unavailable Unavailable Carangelo, Jose PA Unavailable Unavailable Carangelo, Jose PA Unavailable Unavailable Carangelo, Jose PA Unavailable Unavailable Carangelo, Jose PA Unavailable Unavailable Carangelo, Jose PA Unavailable Unavailable Carangelo, Jose PA Unavailable Unavailable Carangelo, Jose PA Unavailable Unavailable Carangelo, Jose PA Unavailable Unavailable Carangelo, Jose PA Unavailable Unavailable Carangelo, Jose PA Unavailable Unavailable Carangelo, Jose PA Unavailable Unavailable Carangelo, Jose PA Unavailable Unavailable Carangelo, Jose PA Unavailable Unavailable Carangelo, Jose PA Unavailable Unavailable Carangelo, Jose PA Unavailable Unavailable Carangelo, Jose PA Unavailable Unavailable Carangelo, Jose PA Unavailable Unavailable Carangelo, Jose PA Unavailable Unavailable Carangelo, Jose PA Unavailable Unavailable Nguyen, R Regis PA Unavailable Unavailable Pradip Phipps PH.D., M.D. Unavailable Unavailable Pradip Phipps PH.D., M.D. Unavailable Unavailable Pradip Phipps PH.D., M.D. Unavailable Unavailable Pradip Phipps PH.D., M.D. Unavailable Unavailable Pradip Phipps PH.D., M.D. Unavailable Unavailable Pradip Phipps PH.D., M.D. Unavailable Unavailable Pradip Phipps PH.D., M.D. Unavailable Unavailable Pradip Phipps PH.D., M.D. Unavailable Unavailable Pradip Phipps PH.D., M.D. Unavailable Unavailable Pradip Phipps PH.D., M.D. Unavailable Unavailable Pradip Phipps PH.D., M.D. Unavailable Unavailable Pradip Phipps PH.D., M.D. Unavailable Unavailable Moise, C Reynold PH.D., M.D. Unavailable Unavailable Moise, C Reynold PH.D., M.D. Unavailable Unavailable Moise, C Reynold PH.D., M.D. Unavailable Unavailable Moise, C Reynold PH.D., M.D. Unavailable Unavailable Moise, C Reynold PH.D., M.D. Unavailable Unavailable Moise, C Reynold PH.D., M.D. Unavailable Unavailable Moise, C Reynold PH.D., M.D. Unavailable Unavailable Moise, C Reynold PH.D., M.D. Unavailable Unavailable Moise, C Reynold PH.D., M.D. Unavailable Unavailable Moise, C Reynold PH.D., M.D. Unavailable Unavailable Moise, C Reynold PH.D., M.D. Unavailable Unavailable Moise, C Reynold PH.D., M.D. Unavailable Unavailable Moise, C Reynold PH.D., M.D. Unavailable Unavailable Moise, C Reynold PH.D., M.D. Unavailable Unavailable Moise, C Reynold PH.D., M.D. Unavailable Unavailable Moise, C Reynold PH.D., M.D. Unavailable Unavailable Moise, C Reynold PH.D., M.D. Unavailable Unavailable Moise, C Reynold PH.D., M.D. Unavailable Unavailable Moise, C Reynold PH.D., M.D. Unavailable Unavailable Moise, C Reynold PH.D., M.D. Unavailable Unavailable Moise, C Reynold PH.D., M.D. Unavailable Unavailable Moise, C Reynold PH.D., M.D. Unavailable Unavailable Moise, C Reynold PH.D., M.D. Unavailable Unavailable Moise, C Reynold PH.D., M.D. Unavailable Unavailable Moise, C Reynold PH.D., M.D. Unavailable Unavailable Moise, C Reynold PH.D., M.D. Unavailable Unavailable Moise, C Reynold PH.D., M.D. Unavailable Unavailable Moise, C Reynold PH.D., M.D. Unavailable Unavailable Moise, C Reynold PH.D., M.D. Unavailable Unavailable Moise, C Reynold PH.D., M.D. Unavailable Unavailable Moise, C Reynold PH.D., M.D. Unavailable Unavailable Moise, C Reynold PH.D., M.D. Unavailable Unavailable Moise, C Reynold PH.D., M.D. Unavailable Unavailable Moise, C Renyold PH.D., M.D. Unavailable Unavailable Moise, C Reynold PH.D., M.D. Unavailable Unavailable Moise, C Reynold PH.D., M.D. Unavailable Unavailable Moise, C Reynold PH.D., M.D. Unavailable Unavailable Moise, C Reynold PH.D., M.D. Unavailable Unavailable Moise, C Reynold PH.D., M.D. Unavailable Unavailable Moise, C Reynold PH.D., M.D. Unavailable Unavailable Moise, C Reynold PH.D., M.D. Unavailable Unavailable Moise, C Reynold PH.D., M.D. Unavailable Unavailable Moise, C Reynold PH.D., M.D. Unavailable Unavailable Moise, C Reynold PH.D., M.D. Unavailable Unavailable Moise, C Reynold PH.D., M.D. Unavailable Unavailable Moise, C Reynold PH.D., M.D. Unavailable Unavailable Moise, C Reynold PH.D., M.D. Unavailable Unavailable Moise, C Reynold PH.D., M.D. Unavailable Unavailable Moise, C Reynold PH.D., M.D. Unavailable Unavailable Moise, C Reynold PH.D., M.D. Unavailable Unavailable Moise, C Reynold PH.D., M.D. Unavailable Unavailable Moise, C Reynold PH.D., M.D. Unavailable Unavailable Moise, C Reynold PH.D., M.D. Unavailable Unavailable Moise, C Reynold PH.D., M.D. Unavailable Unavailable Moise, C Reynold PH.D., M.D. Unavailable Unavailable Moise, C Reynold PH.D., M.D. Unavailable Unavailable Moise, C Reynold PH.D., M.D. Unavailable Unavailable Moise, C Reynold PH.D., M.D. Unavailable Unavailable Moise, C Reynold PH.D., M.D. Unavailable Unavailable Moise, C Reynold PH.D., M.D. Unavailable Unavailable Moise, C Reynold PH.D., M.D. Unavailable Unavailable Moise, C Reynold PH.D., M.D. Unavailable Unavailable Moise, C Reynold PH.D., M.D. Unavailable Unavailable Moise, C Reynold PH.D., M.D. Unavailable Unavailable Moise, C Reynold PH.D., M.D. Unavailable Unavailable Moise, C Reynold PH.D., M.D. Unavailable Unavailable Moise, C Reynold PH.D., M.D. Unavailable Unavailable Moise, C Reynold PH.D., M.D. Unavailable Unavailable Pradip Phipps PH.D., M.Bonnie. Unavailable Unavailable Pradip Phipps PH.D., M.Bonnie. Unavailable Unavailable Re-disclosure Warning The records that you are about to access may contain information from federally-assisted alcohol or drug abuse programs. If such information is present, then the following federally mandated warning applies: This information has been disclosed to you from records protected by federal confidentiality rules (42 CFR part 2). The federal rules prohibit you from making any further disclosure of this information unless further disclosure is expressly permitted by the written consent of the person to whom it pertains or as otherwise permitted by 42 CFR part 2. A general authorization for the release of medical or other information is NOT sufficient for this purpose. The Federal rules restrict any use of the information to criminally investigate or prosecute any alcohol or drug abuse patient.The records that you are about to access may contain highly sensitive health information, the redisclosure of which is protected by Article 27-F of the [facility] Public Health law. If you continue you may have access to information: Regarding HIV / AIDS; Provided by facilities licensed or operated by the [facility] Office of Mental Health; or Provided by the [facility] Office for People With Developmental Disabilities. If such information is present, then the following [facility] mandated warning applies: This information has been disclosed to you from confidential records which are protected by state law. State law prohibits you from making any further disclosure of this information without the specific written consent of the person to whom it pertains, or as otherwise permitted by law. Any unauthorized further disclosure in violation of state law may result in a fine or penitentiary sentence or both. A general authorization for the release of medical or other information is NOT sufficient authorization for further disc losure. Allergies and Adverse Reactions Type Description Substance Reaction Status Data Source(s ) Drug allergy Drug allergy No Known Allergies [facility] Propensity to adverse reactions IBUPROFEN Ibuprofen Acti ve [facility] Encounters Encounter Providers Location Date Indications Data Source(s ) Emergency Attender: Regis Hicks nder: Regis Diazender: Krista Earl MDAttender: Krista Earl MD ED-ED 03/21/2021 0 6:58:00 PM EDT - 03/22/2021 09:45:00 AM EDT CP, SOB [facility] CP, SOB Patient discharged. Outpatient Attender: YESI MODI MDReferrer: Natanael Fer chan 03/17/2021 01:38:33 PM EDT [facility] Outpatient Attender: Natanael Bobby CPSCAORT-CPSGNIMD 021 09:01:00 AM EDT - 02/20/2021 09:02:00 AM EDT [facility] Patient discharged. Emergency Attender: HUEY ARANDA ED-ED 02/14 08:34:00 PM EDT - 02/14/2021 09:46:00 PM EDT BIG LUMP ON LEFT LEG [facility] BIG LUMP ON LEFT LEG Patient discharged. Outpatient Attender: Carlos Spangler JRReferrer: Natanael Eun danielson 02/13/2021 02:35:53 PM EDT [facility] Recurring Patient Referrer: Natanael Rosales 02/02/2021 01:03: 06 PM EDT [facility] Recurring Patient Referrer: Natanael Rosales 02/02/2021 01:02: 59 PM EDT [facility] Outpatient Attender: YESI MODI MDReferrer: Natanael Fer chan 01/25/2021 12:09:31 PM EDT [facility] Recurring Patient Referrer: Natanael Rosales 01/25/2021 11:37: 30 AM EDT [facility] Recurring Patient Referrer: Natanael Rosales 01/25/2021 11:36: 30 AM EDT [facility] Recurring Patient Referrer: Natanael Rosales 01/25/2021 11:36: 24 AM EDT [facility] Recurring Patient Referrer: Natanael Rosales 01/25/2021 11:31: 59 AM EDT [facility] Outpatient Admitter: YESI MODI MD MOB-MOB.PAT 0 01/25/2021 09:13:56 AM EDT - 01/25/2021 09:14:01 AM EDT [facility] Outpatient Attender: YESI MODI MDAdmitter: YESI MODI MD MOB-MOB.PAT 01/25/2021 12:00:00 AM EDT - 01/25/2021 11:34:[address] [facility] Outpatient Attender: Reynold Phipps PH.Michell, Marcelino Magaña/Darnell capps/Teri 01/03/2021 10:00:00 AM EDT [facility] Patient Referrer: Natanael Rosales 12/26/2020 11:07: 02 AM EDT [facility] Inpatient Attender: NEVIN KERNS MDAt tender: YESI MODI MDAdmitter: YESI MODI MD [id number] 12/26/2020 08:25:16 AM EDT - 02/03/2021 07:09:[address] [facility] Patient discharged. Outpatient Attender: Jessica RUVALCABAORT-CPSGNIMD 12/23/2020 10:34:00 AM EDT - 12/23/2020 10:35:00 AM EDT [facility] pital Patient discharged. Outpatient Attender: Reynold Phipps PH.Michell, MJaswinder Magaña/Dranell capps/Teri 12/15/2020 01:00:00 PM EDT [facility] ([facility] jean, ) Outpatient Attender: Max Saab MD CPSCAORT-[id number] 03/2021 02:34:00 PM EDT - 12/14/2020 02:35:[facility] Out[facility] Attender: Natanael Rosales CPSCAORT-CPSGNIMD 08:21:00 AM EDT - 12/07/2020 08:22:00 AM EDT [facility] Patient discharged. Outpatient Attender: Max Saab MD CPSCAORT-IMAPD 2020 11:35:00 AM EDT - 12/06/2020 11:36:00 AM EDT A-FIB,CHEST PAIN [facility] A-FIB,CHEST PAIN Patient discharged. Outpatient Attender: Max Saab MD CPSCAORT-CARPD 2020 12:52:00 PM EDT - 11/29/2020 12:53:00 PM EDT A-FIB,CHEST PAIN [facility] A-FIB,CHEST PAIN Patient discharged. Outpatient Attender: Max Saab MD [id number]-[id number] 01/2021 08:32:00 AM EDT - 11/11/2020 08:33:00 AM EDT [facility] Patient discharged. Outpatient Attender: YESI MODI MDAdmitter: YESI MODI MD MOB-MOB.PAT 11/09/2020 11:01:17 AM EDT - 11/09/2020 12:51:[address] [facility] Outpatient Admitter: YESI MODI MD MOB-MOB.PAT 0 11/09/2020 10:03:45 AM EDT - 11/09/2020 10:03:52 AM EDT [facility] Outpatient Attender: Natanael Rosales ED-LAB 02:37:00 PM EDT - 11/08/2020 02:38:00 PM EDT [id number] [facility] [id number] Patient discharged. Outpatient Attender: Natanael Rosales CPSCAORT-CPSGNIMD 021 01:59:00 PM EDT - 11/08/2020 02:00:00 PM EDT [facility] Patient discharged. Outpatient Attender: YESI MODI MDReferrer: Natanael chan 10/27/2020 11:50:52 AM EDT [facility] Recurring Patient Referrer: Natanael Rosales 10/27/2020 10:49: 03 AM EDT [facility] Inpatient Attender: NEVIN KERNS MDAt tender: YESI MDOI MDAdmitter: YESI MODI MD [id number] 10/13/2020 01:37:[address] [facility] Recurring Patient Referrer: Natanael Rosales 10/06/2020 08:17: 07 AM EDT [facility] Outpatient Attender: YESI Noonan: Natanael Monroe rocio 09/29/2020 05:21:27 PM EDT [facility] Outpatient Attender: YESI MODI MDReferrer: Natanael Monroe rocio 09/15/2020 09:14:37 PM EST [facility] Recurring Patient Referrer: Natanael Isaacsjonah 09/15/2020 01:30: 47 PM EST [facility] Outpatient SJ-SJ 09/13/2020 11:43:[address] [facility] Outpatient Referrer: SOUTH PAL MD [facility] 09/13/2020 12:00:[address] [facility] Recurring Patient Referrer: Natanael Isaacsjonah 08/29/2020 03:25: 25 PM EST [facility] Outpatient Attender: Natanael Rosales CPSCAORT-CPSGNIMD 021 02:54:00 PM EST - 07/21/2020 02:55:00 PM EST [facility] Patient discharged. Robert Watson MD: [id number] [address], [place] [address], Ph. Attender: Robert Watson MD [place] - [facility] Main Office 06/06/2020 12:00:00 AM EST [facility] ([facility]) Office Visit Attender: Jose Rees [facility] 05/20/2020 12:15:00 PM EST [facility] ([facility]) Outpatient Attender: Jessica Kirk MDAttender: Jessica Kirk MD ED-[id number] 02/24/2020 09:19:00 AM EDT - 02/24/2020 09:20:00 AM EDT [facility] Patient discharged. Outpatient Attender: Christiana Luis RNPAttender: Christiana Swenson NP ED-LAB 01/11/2020 03:28:00 PM EDT - 01/11/2020 03:29:00 PM EDT [id number] [facility] [id number] Patient discharged. Outpatient Attender: Antolin Ramirez DO CPSCAORT-IMACN 020 09:48:00 AM EDT - 12/01/2019 09:49:00 AM EDT LUMBAR SPONDYLOSIS W/ RADICULOPATHY [facility] LUMBAR SPONDYLOSIS W/ RADICULOPATHY Patient discharged. Outpatient Attender: Antolin Ramirez ED-IMAG 020 10:43:00 AM EDT - 11/24/2019 10:44:00 AM EDT M51.36 [facility] M51.36 Patient discharged. Outpatient Attender: SOHAN FARMER M.D. ED-SDCSDC 020 01:22:00 PM EDT - 09/22/2019 02:20:00 PM EDT BACK PAIN [facility] BACK PAIN Patient discharged. Emergency Attender: Regis ARANDA ED-ED 020 03:29:00 PM EST - 08/28/2019 04:25:00 PM EST sore throat [facility] sore throat Patient discharged. Emergency Attender: [facility] ED-ED 03/2019 11:58:00 PM EDT - 03/17/2019 05:01:00 AM EDT SOB,confused [facility] SOB,confused Patient discharged. Outpatient Attender: CATHERINE DOWD NP -HCCANTPC 11:48:00 AM EDT - 10/28/2018 11:49:00 AM EDT [facility] Emergency Attender: [facility] ED-ED 03/2019 01:37:00 PM EDT - 10/14/2018 04:41:00 PM EDT SOB, LEFT HIP PAIN [facility] SOB, LEFT HIP PAIN Medications Medication Brand Name Start Date Product Form Dose Route Admi nistrative Instructions Pharmacy Instructions Status Indications Reaction Description Data Source(s) 100 mg 04/12/2021 12:00:00 AM EDT tablet 90 TAKE ONE TABLET BY MOUTH EVERY DAY TAKE ONE TABLET BY MOUTH EVERY DAY SOLD: 04/13/2021 [facility] 10 mg 04/12/2021 12:00:00 AM EDT tablet 120 TAKE ONE TO TWO TABLETS BY MOUTH EVERY 4 HOURS NEEDED FOR PAIN MAXIMUM DAILY DOSE = 8 TAKE ONE TO TWO TABLETS BY MOUTH EVERY 4 HOURS NEEDED FOR PAIN MAXIMUM DAILY DOSE = 8 SOLD: 04/13/2021 [facility] 10 mg 03/28/2021 12:00:00 AM EDT tablet 128 TAKE ONE TO TWO TABLETS BY MOUTH EVERY 4 HOURS NEEDED FOR PAIN MAXIMUM DAILY DOSE = 8 TAKE ONE TO TWO TABLETS BY MOUTH EVERY 4 HOURS NEEDED FOR PAIN MAXIMUM DAILY DOSE = 8 SOLD: 03/28/2021 [facility] 250 mg 03/22/2021 12:00:00 AM EDT tablet 4 TAKE ONE TABLET BY MOUTH EVERY DAY TAKE ONE TABLET BY MOUTH EVERY DAY SOLD: 03/22/2021 [facility] 2.5 mg /3 mL (0.083 %) 03/22/2021 12:00:00 AM EDT solu tion for nebulization 75 INHALE THE CONTENTS OF ONE VIAL VIA NEBU LIZER EVERY 6 HOURS INHALE THE CONTENTS OF ONE VIAL VIA NEBULIZER EVERY 6 HOURS SOLD: 03/22/2021 [facility] 90 mcg/actuation 03/22/2021 12:00:00 AM EDT HFA aerosol inha ler 18 INHALE TWO PUFFS BY MOUTH EVERY 4 HOURS NEEDED FOR SHORTNESS OF BREATH INHALE TWO PUFFS BY MOUTH EVERY 4 HOURS NEEDED FOR SHORTNESS OF BREATH SOLD: 03/22/2021 [facility] 10 mg 03/15/2021 12:00:00 AM EDT tablet 240 TAKE ONE TO TWO TABLETS BY MOUTH EVERY 4 HOURS NEEDED FOR PAIN MAXIMUM DAILY DOSE = 8 TAKE ONE TO TWO TABLETS BY MOUTH EVERY 4 HOURS NEEDED FOR PAIN MAXIMUM DAILY DOSE = 8 SOLD: 03/22/2021 [facility] 10 mg 03/01/2021 12:00:00 AM EDT tablet 30 TAKE ONE TABLET BY MOUTH AT BEDTIME NEEDED MAXIMUM DAILY DOSE = 1 TAKE ONE TABLET BY MOUTH AT BEDTIME NEEDED MAXIMUM DAILY DOSE = 1 SOLD: 04/07/2021 [facility] 10 mg 03/01/2021 12:00:00 AM EDT tablet 30 TAKE ONE TABLET BY MOUTH AT BEDTIME NEEDED MAXIMUM DAILY DOSE = 1 TAKE ONE TABLET BY MOUTH AT BEDTIME NEEDED MAXIMUM DAILY DOSE = 1 SOLD: 03/04/2021 [facility] 20 mg 02/28/2021 12:00:00 AM EDT tablet 5 TAKE ONE TABLET BY MOUTH EVERY DAY FOR 5 DAYS TAKE ONE TABLET BY MOUTH EVERY DAY FOR 5 DAYS SOLD: 02/28/2021 [facility] 10 mg 02/27/2021 12:00:00 AM EDT tablet 30 TAKE ONE TABLET BY MOUTH EVERY DAY TAKE ONE TABLET BY MOUTH EVERY DAY SOLD: 03/04/2021 [facility] 10 mg 02/27/2021 12:00:00 AM EDT tablet 30 TAKE ONE TABLET BY MOUTH EVERY DAY TAKE ONE TABLET BY MOUTH EVERY DAY SOLD: 04/07/2021 [facility] 10 mg 02/23/2021 12:00:00 AM EDT tablet 240 TAKE 1-2 TABLETS BY MOUTH EVERY 4 HOURS NEEDED FOR PAIN MAXIMUM DAILY DOSE = 8 TAKE 1-2 TABLETS BY MOUTH EVERY 4 HOURS NEEDED FOR PAIN MAXIMUM DAILY DOSE = 8 SOLD: 02/23/2021 [facility] 20 mg 02/20/2021 12:00:00 AM EDT tablet 10 TAKE TWO TABLETS BY MOUTH ONCE DAILY FOR 5 DAYS TAKE TWO TABLETS BY MOUTH ONCE DAILY FOR 5 DAYS SOLD: 02/20/2021 [facility] 25 mg 02/20/2021 12:00:00 AM EDT capsule 10 TAKE ONE CAPSULE BY MOUTH TWICE A DAY WITH FOOD OR MILK FOR 5 DAYS TAKE ONE CAPSULE BY MOUTH TWICE A DAY WI TH FOOD OR MILK FOR 5 DAYS SOLD: 02/20/2021 [facility] Clindamycin 300 MG Oral Capsule CLINDAMYCIN HCL 02/15/2021 12:00 :00 AM EDT capsule 40 TAKE ONE CAPSULE BY MOUTH FOUR T IMES A DAY TAKE ONE CAPSULE BY MOUTH FOUR TIMES A DAY SOLD: 02/15/2021 [facility] 15 mg 02/07/2021 12:00:00 AM EDT tablet 240 TAKE 1-2 TABLETS BY MOUTH EVERY 4 HOURS NEEDED FOR PAIN MAXIMUM DAILY DOSE = 8 TAKE 1-2 TABLETS BY MOUTH EVERY 4 HOURS NEEDED FOR PAIN MAXIMUM DAILY DOSE = 8 SOLD: 02/07/2021 [facility] rivaroxaban 15 MG Oral Tablet rivaroxaban (Xarelto) 15 MG TABS rivaroxaban (Xarelto) 15 MG TABS 02/06/2021 12:00:00 AM EDT 15 mg Oral active Take 1 tablet (15 mg total) by mouth daily [facility] Oxycodone Hydrochloride 15 MG Oral Table t oxyCODONE (ROXICODONE) 15 MG immediate release tablet oxyCODONE (ROXICODONE) 15 MG immediate release tablet 02/03/2021 12:00:00 AM EDT 15 mg Oral active Take 1 tablet (15 mg total) by mouth every 4 (four) hours as needed Max Daily Amount: [address] [facility] 25 mg 02/01/2021 12:00:00 AM EDT tablet 90 TAKE ONE TABLET BY MOUTH THREE TIMES A DAY WITH FOOD TAKE ONE TABLET BY MOUTH THREE TIMES A DAY WITH FOOD S OLD: 02/04/2021 [facility] 40 mg 02/01/2021 12:00:00 AM EDT tablet 30 TAKE ONE TABLET BY MOUTH EVERY DAY TAKE ONE TABLET BY MOUTH EVERY DAY SOLD: 02/04/2021 [facility] 1 mg 02/01/2021 12:00:00 AM EDT tablet 30 TAKE ONE TABLET BY MOUTH EVERY DAY TAKE ONE TABLET BY MOUTH EVERY DAY SOLD: 04/07/2021 [facility] 40 mg 02/01/2021 12:00:00 AM EDT tablet 30 TAKE ONE TABLET BY MOUTH EVERY DAY TAKE ONE TABLET BY MOUTH EVERY DAY SOLD: 03/04/2021 [facility] 1 mg 02/01/2021 12:00:00 AM EDT tablet 30 TAKE ONE TABLET BY MOUTH EVERY DAY TAKE ONE TABLET BY MOUTH EVERY DAY SOLD: 03/04/2021 [facility] 40 mg 02/01/2021 12:00:00 AM EDT tablet 30 TAKE ONE TABLET BY MOUTH EVERY DAY TAKE ONE TABLET BY MOUTH EVERY DAY SOLD: 04/07/2021 [facility] 1 mg 02/01/2021 12:00:00 AM EDT tablet 30 TAKE ONE TABLET BY MOUTH EVERY DAY TAKE ONE TABLET BY MOUTH EVERY DAY SOLD: 02/04/2021 [facility] Potassium Chloride 10 MEQ Extended Release Oral Tablet POTAS SIUM CHLORIDE 02/01/2021 12:00:00 AM EDT tablet extended release 60 TAKE ONE TABLET BY MOUTH TWICE A DAY WITH FOOD TAKE ONE TABLET BY MOUTH TWICE A DAY WITH FOOD SOLD: 02/04/2021 [facility] Potassium Chloride 10 MEQ Extended Release Oral Tablet POTAS SIUM CHLORIDE 02/01/2021 12:00:00 AM EDT tablet extended release 60 TAKE ONE TABLET BY MOUTH TWICE A DAY WITH FOOD TAKE ONE TABLET BY MOUTH TWICE A DAY WITH FOOD SOLD: 03/04/2021 [facility] 25 mg 02/01/2021 12:00:00 AM EDT tablet 30 TAKE ONE TABLET BY MOUTH EVERY DAY TAKE ONE TABLET BY MOUTH EVERY DAY SOLD: 02/04/2021 [facility] 25 mg 02/01/2021 12:00:00 AM EDT tablet 30 TAKE ONE TABLET BY MOUTH EVERY MORNING WITH FOOD TAKE ONE TABLET BY MOUTH EVERY MORNING WITH FOOD SOLD: 02/04/2021 [facility] 25 mg 02/01/2021 12:00:00 AM EDT tablet 90 TAKE ONE TABLET BY MOUTH THREE TIMES A DAY WITH FOOD TAKE ONE TABLET BY MOUTH THREE TIMES A DAY WITH FOOD S OLD: 04/07/2021 [facility] 25 mg 02/01/2021 12:00:00 AM EDT tablet 30 TAKE ONE TABLET BY MOUTH EVERY DAY TAKE ONE TABLET BY MOUTH EVERY DAY SOLD: 02/28/2021 [facility] 25 mg 02/01/2021 12:00:00 AM EDT tablet 90 TAKE ONE TABLET BY MOUTH THREE TIMES A DAY WITH FOOD TAKE ONE TABLET BY MOUTH THREE TIMES A DAY WITH FOOD S OLD: 03/04/2021 [facility] 25 mg 02/01/2021 12:00:00 AM EDT tablet 30 TAKE ONE TABLET BY MOUTH EVERY DAY TAKE ONE TABLET BY MOUTH EVERY DAY SOLD: 04/07/2021 [facility] Oxycodone Hydrochloride 10 MG Oral Tablet Oxycodone HC l TABS 20 mg Oxycodone HCl TABS 20 mg 01/31/2021 11:02:11 AM EDT 20 mg Oral active 20 mg, Oral, Every 4 hours PRN, severe pain (7-10), Starting on Sat01/31/21 at 1102, For 149 hours, Post-op [facility] Medication administered onsite oxyCODONE (ROXICODONE) immediate release tablet 15 mg 01/31/2021 11:01:59 AM EDT 15 mg Oral active 15 mg, O ral, Every 4 hours PRN, moderate pain (4-6), Starting on Sat01/31/21 at 1101, For 149 hours, Post-op [facility] Medication administered onsite fentaNYL Citrate (PF) (SUBLIMAZE) injection 25 mcg [id number] -32 01/31/2021 11:00:00 AM EDT 25 ug Intravenous completed 25 mcg, Intravenous, Once, On Sat01/31/21 at 1100, For [address] [facility] Medication administered onsite POLYETHYLENE GLYCOL 3350 142 MG/ML Oral Solution polyethylene glycol (GLYCOLAX) packet 17 g polyethylene glycol (GLYCOLAX) packet 17 g 01/31/2021 09:00:00 AM EDT 17 g Oral active 17 g, Or al, Daily, First dose on Sat01/31/21 at 0900, Post-op
Start POD #[address]
[facility] Medication administered onsite Amlodipine 10 MG Oral Tablet amLODIPine (NORVASC) tabl et 10 mg amLODIPine (NORVASC) tablet 10 mg 01/31/2021 09:00:00 AM EDT 10 mg Oral active 10 mg, Oral, Daily, First dose on Sat01/31/21 at 0900, Post-op [facility] Medication administered onsite Chlorthalidone 25 MG Oral Tablet chlorthalidone (HYGRO TEN) tablet 25 mg chlorthalidone (HYGROTEN) tablet 25 mg 01/31/2021 09:00:00 AM EDT 2 5 mg Oral active 25 mg, Oral, Daily, First dose on Sat01/31/21 at 0900, Post-op [facility] Medication administered onsite Bisacodyl 10 MG Rectal Suppository bisacodyl (DULCOLAX ) suppository 10 mg bisacodyl (DULCOLAX) suppository 10 mg 01/31/2021 12:00:00 AM EDT 10 mg Rectal active 10 mg, Rectal, Daily PRN, constipation, Starting on Sat01/31/21 at 0000, For 4 days, Post-op
For post-op day #1, #3, and #4 Hold for BM
[facility] Medication administered onsite cefazolin (ANCEF) injection 2 g drug or medication 01/30/2021 11:00 :00 PM EDT 2 g Intravenous aborted Perioperative Pharmacoprophy laxis 2 g, Intravenous, Administer over 6 Minutes, Every 8 hours (relative), First dose (after last modification) on Sat01/30/21 at 2300, Post-op
Start 4 hours after pre-op dose, then every 8 hours until hemovac removed. Give a minimum of 3 doses. Time pre-op dose hun RN may administer IV push or infuse this medication through syringe adapter set ref [id number]. Flush line after use
[facility] Perioperative Pharmacoprophylaxis Medication administered onsite Docusate Sodium 50 MG / sennosides, HALF-WAY 8.6 MG Oral Tablet senna-docusate (PERICOLACE) 8.6-50 MG 2 tablet senna-docusate (PERICOLACE) 8.6-50 MG 2 tablet 01/30/2021 09:00:00 PM EDT 2 {tbl} Oral active 2 tablet, Oral, Nightly, First dose on Sat01/30/21 at 2100, Post-op
hold for loose stools
[facility] Medication administered onsite Acetaminophen 500 MG Oral Tablet acetaminophen (TYLENO L) tablet 1,000 mg acetaminophen (TYLENOL) tablet 1,000 mg 01/30/2021 09:00:00 PM EDT 1000 mg Oral active 1,000 mg, Oral , Every 6 hours (scheduled), First dose on Sat01/30/21 at 2100, Post-op [facility] Medication administered onsite Metoprolol Tartrate 25 MG Oral Tablet me toprolol tartrate (LOPRESSOR) tablet 25 mg metoprolol tartrate (LOPRESSOR) tablet 25 mg 01/30/2021 09:00:00 PM EDT 25 mg Oral active 25 mg, Ora l, 3 times daily, First dose on Sat01/30/21 at 2100, Post-op [facility] Medication administered onsite Hydroxyzine Hydrochloride 25 MG Oral Tablet hydrOXYzin e (ATARAX) tablet 50 mg hydrOXYzine (ATARAX) tablet 50 mg 01/30/2021 09:00:00 PM EDT 50 mg Oral active 50 mg, Oral, Nightly PRN, For insomnia, Starting on Sat01/30/21 at 2100, Post-op [facility] Medication administered onsite Zolpidem tartrate 5 MG Oral Tablet zolpidem (AMBIEN) t ablet 10 mg zolpidem (AMBIEN) tablet 10 mg 01/30/2021 09:00:00 PM EDT 10 mg Oral active 10 mg, Oral, Nightly PRN, sleep, Starting on Sat01/30/21 at 2100, For 7 days, Post-op [facility] Medication administered onsite Methocarbamol 500 MG Oral Tablet methocarbamol (ROBAXI N) tablet 750 mg methocarbamol (ROBAXIN) tablet 750 mg 01/30/2021 08:59:58 PM EDT 75 0 mg Oral active 750 mg, Oral, 4 times daily PRN, muscle spasms, Starting on Sat01/30/21 at 2059, Post-op [facility] Medication administered onsite oxyCODONE (ROXICODONE) immediate release tablet 15 mg 01/30/2021 08:59:37 PM EDT 15 mg Oral aborted 15 mg, O ral, Every 4 hours PRN, severe pain (7- 10), Starting on Sat01/30/21 at 2059, For 163 hours, Post-op [facility] Medication administered onsite cefazolin (ANCEF) injection 2 g drug or medication 01/30/2021 07:00 :00 PM EDT 2 g Intravenous aborted Perioperative Pharmacoprophy laxis 2 g, Intravenous, Administer over 6 Minutes, Every 8 hours (relative), First dose on Sat01/30/21 at 1900, Post-op
Start 4 hours after pre-op dose, then every 8 hours until hemovac removed. Give a minimum of 3 doses. Time pre-op dose hun RN may administer IV push or infuse this medication through syringe adapter set ref [id number]. Flush line after use
[facility] Perioperative Pharmacoprophylaxis Medication administered onsite Folic Acid 1 MG Oral Tablet folic acid (FOLVITE) table t 1 mg folic acid (FOLVITE) tablet 1 mg 01/30/2021 06:00:00 PM EDT 1 mg Oral active 1 mg, Oral, Daily, First dose on Sat01/30/21 at 1800, Post-op [facility] Medication administered onsite Furosemide 40 MG Oral Tablet furosemide (LASIX) tablet 40 mg furosemide (LASIX) tablet 40 mg 01/30/2021 06:00:00 PM EDT 40 mg Oral activ e 40 mg, Oral, Daily, First dose on Sat01/30/21 at 1800, Post-op [facility] Medication administered onsite Allopurinol 100 MG Oral Tablet allopurinol (ZYLOPRIM) tablet 100 mg allopurinol (ZYLOPRIM) tablet 100 mg 01/30/2021 05:00:00 PM EDT 100 mg Oral active 100 mg, Oral, Daily, First dose on Sat01/30/21 at 1700 , Post-op [facility] Medication administered onsite Spironolactone 25 MG Oral Tablet spironolactone (ALDAC TONE) tablet 25 mg spironolactone (ALDACTONE) tablet 25 mg 01/30/2021 05:00:00 PM EDT 25 mg Oral active 25 mg, Oral, Da maritza, First dose on Sat01/30/21 at 1700, Post- op
For administration and preparation considerations, refer to [facility] Drugs in the Workplace Policy on Intranet.
[facility] Medication administered onsite potassium chloride SA (K-DUR,KLOR-CON) CR tablet 10 mEq [id number] 01/30/2021 05:00:00 PM EDT 10 meq Oral active 10 mEq, Oral, Daily, First dose on Sat01/30/21 at 1700, Post-op [facility] Medication administered onsite sodium chloride 0.9% (NS) infusion 0890-3482-72 01/30/2021 05:00:00 P M EDT Intravenous aborted at 100 mL/hr, Intravenous, Continuous, Starting on Sat01/30/21 at 1700, Post-op [facility] Medication administered onsite Mineral Oil 1000 MG/ML Enema mineral oil enema 1 enema mineral oil enema 1 enema 01/30/2021 04:44:16 PM EDT 1 {enema} Rectal active 1 enema, Rectal, Daily PRN, constipation, if bisacodyl is ineffective, Starting on Sat01/30/21 at 1644, Post-op
hold for loose stools
[facility] Medication administered onsite Oxycodone Hydrochloride 10 MG Oral Tablet Oxycodone HC l TABS 10 mg Oxycodone HCl TABS 10 mg 01/30/2021 04:44:16 PM EDT 10 mg Oral aborted 10 mg, Oral, Every 4 hours PRN, severe pain (7-10), Starting on Sat01/30/21 at 1644, For 7 days, Post-op [facility] Medication administered onsite Methocarbamol 500 MG Oral Tablet methocarbamol (ROBAXI N) tablet 500 mg methocarbamol (ROBAXIN) tablet 500 mg 01/30/2021 04:44:16 PM EDT 50 0 mg Oral aborted 500 mg, Oral, 4 times daily PRN, muscle spasms, Starting on Sat01/30/21 at 1644, Post-op [facility] Medication administered onsite Nitroglycerin 0.4 MG Sublingual Tablet n itroglycerin (NITROSTAT) SL tablet 0.4 mg nitroglycerin (NITROSTAT) SL tablet 0.4 mg 01/30/2021 04:44:16 P M EDT 0.4 mg Sublingual active 0.4 mg, S ublingual, Every 5 min PRN, chest pain, Starting on Sat01/30/21 at 1644, Post-op
May administer up to 3 doses per episode.
[facility] Medication administered onsite Ondansetron 4 MG Disintegrating Oral Tab let ondansetron (ZOFRAN-ODT) disintegrating tablet 4 mg ondansetron (ZOFRAN-ODT) disintegrating tablet 4 mg 01/30/2021 04:44:16 PM EDT 4 mg Oral active 4 mg, Oral, Every 4 hours PRN, nausea, vomiting, Starting on Sat01/30/21 at 1644, Post-op [facility] Medication administered onsite ondansetron (ZOFRAN) injection 4 mg [id number] 01/30/2021 04:44:1 6 PM EDT 4 mg Intravenous active 4 mg, In travenous, Every 4 hours PRN, nausea, vomiting, Starting on Sat01/30/21 at 1644, Post-op [facility] Medication administered onsite Calcium Carbonate 500 MG Chewable Tablet calcium carbonate (TUMS) chewable tablet 500-1,000 mg calcium carbonate (TUMS) chewable tablet 500-1,000 mg 01/30/2021 04:44:15 PM EDT mg Oral active 500-1,000 mg, Oral, Every 4 hours PRN, indigestion, moderate or severe, Starting on Sat01/30/21 at 1644, Post-op [facility] Medication administered onsite fentaNYL Citrate (PF) (SUBLIMAZE) injection 50 mcg [id number] -[id number] 01/30/2021 04:44:15 PM EDT 50 ug Intravenous active 50 mcg, Intravenous, Every 3 hours PRN, for severe breakthrough pain (7-10) if oral opioid ineffective within one hour, Starting on Sat01/30/21 at 1644, For 7 days, Post-op [facility] Medication administered onsite Benzocaine 6 MG / Menthol 10 MG Oral Joaquin enge benzocaine-menthol (CHLORASEPTIC) 1 lozenge benzocaine-menthol (CHLORASEPTIC) 1 lozenge 01/30/2021 04:44 :15 PM EDT 1 {lozenge} Oral active 1 lozenge, O ral, Every 2 hour PRN, sore throat, Starting on Sat01/30/21 at 1644, Post-op [facility] Medication administered onsite Albuterol 0.83 MG/ML Inhalant Solution a lbuterol (PROVENTIL) nebulizer solution 2.5 mg albuterol (PROVENTIL) nebulizer solution 2.5 mg 2020 04:44:14 PM EDT 2.5 mg active 2.5 mg, Nebulization, RT every 4 hours as needed, wheezing, shortness of breath, Starting on Sat01/30/21 at 1644, Post-op [facility] Medication administered onsite HYDROmorphone (DILAUDID) injection 0.5 mg [id number] 01/30/2021 02:17:02 PM EDT 0.5 mg Intravenous aborted 0.5 mg, Intravenous, Every 5 min PRN, severe pain (7-10), Starting on Sat01/30/21 at 1417, For 5 doses, PACU (only) [facility] Medication administered onsite fentaNYL Citrate (PF) (SUBLIMAZE) injection 25 mcg [id number] 01/30/2021 02:17:02 PM EDT 25 ug Intravenous completed 25 mcg, Intravenous, Every 5 min PRN, moderate pain (4 to 6), Starting on Sat01/30/21 at 1417, For 5 doses, PACU (only) 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
To be administered just prior to to transport to operating room
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
To be administered just prior to to transport to operating room
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
To be administered just prior to to transport to operating room
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
To be administered just prior to to transport to operating room. Hold if patient is diabetic or if stress dose yaneli roids are ordered
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
Swish for 30 seconds and spit in pre-induction unit
[facility] Medication administered onsite Magnesium Chloride 0.50592 MEQ/ML / Pota ssium Chloride 0.0497 MEQ/ML / Sodium Acetate 0.0163 MEQ/ML / Sodium Chloride 0.0899 MEQ/ML / Sodium gluconate 5.02 MG/ML Injectable Solution [Normosol-R] electrolyte-R (NORMOSOL-R/PLASMALYTE-R) solution electrolyte-R (NORMOSOL-R/PLASMALYTE-R) solution 01/30 10:00:00 AM EDT Intravenous aborted at 1 00 mL/hr, Intravenous, Continuous, Starting on Sat01/30/[address] [facility] Medication administered onsite 2 % 01/25/2021 12:00:00 AM EDT ointment 22 APPLY TO EACH NARE WITH A COTTON SWAB TWO TIMES A DAY STARTING 5 DAYS BEFORE SURGERY APPLY TO EACH NARE WITH A COTTON SWAB TWO TIMES A DAY STARTING 5 DAYS BEFORE SURGERY SOLD: 01/25/2021 [facility] Mupirocin 0.02 MG/MG Topical Ointment mupirocin (BACTR OBAN) 2 % ointment mupirocin (BACTROBAN) 2 % ointment 01/25/2021 12:00:00 AM EDT Topical aborted Apply topically 2 (t wo) times a day for 5 days Apply with a cotton swab to each nare twice a day starting the five days prior to surgery. [facility] 10-325 mg 01/17/2021 12:00:00 AM EDT tablet 240 TAKE 1 TO 2 TABLETS BY MOUTH EVERY 4 HOURS NEEDED FOR PAIN MAXIMUM DAILY DOSE = 8 TAKE 1 TO 2 TABLETS BY MOUTH EVERY 4 HOURS NEEDED FOR PAIN MAXIMUM DAILY DOSE = 8 SOLD: 01/18/2021 [facility] 150 mg/mL 01/05/2021 12:00:00 AM EDT syringe 8 INJECT 130MG UNDER THE SKIN EVERY 12 HOURS INJECT 130MG UNDER THE SKIN EVERY 12 HOURS SOLD: 01/06/2021 [facility] 50 mg 01/05/2021 12:00:00 AM EDT tablet 30 TAKE ONE TABLET BY MOUTH AT BEDTIME NEEDED FOR INSOMNIA TAKE ONE TABLET BY MOUTH AT BEDTIME N EEDED FOR INSOMNIA SOLD: 01/06/2021 [facility] Acetaminophen 325 MG / Hydrocodone Bitartrate 5 MG Ora l Tablet Hydrocodone-Acetaminophen 12/26/2020 12:00:00 AM EDT ORAL completed [facility] ([facility], ) 10-325 mg 12/24/2020 12:00:00 AM EDT tablet 90 TAKE ONE TABLET BY MOUTH THREE TIMES A DAY NEEDED FOR PAIN MAXIMUM DAILY DOSE = 3 TAKE ONE TABLET BY MOUTH THREE TIMES A DAY NEEDED FOR PAIN MAXIMUM DAILY DOSE = 3 SOLD: 12/25/2020 [facility] 15 mg 12/08/2020 12:00:00 AM EDT tablet 90 TAKE ONE TABLET BY MOUTH EVERY DAY WITH FOOD TAKE ONE TABLET BY MOUTH EVERY DAY WITH FOOD SOLD: 04/07/2021 [facility] 15 mg 12/08/2020 12:00:00 AM EDT tablet 90 TAKE ONE TABLET BY MOUTH EVERY DAY WITH FOOD TAKE ONE TABLET BY MOUTH EVERY DAY WITH FOOD SOLD: 12/08/2020 [facility] 90 mcg/actuation 12/07/2020 12:00:00 AM EDT HFA aerosol inha ler 8 INHALE TWO PUFFS BY MOUTH FOUR TIMES A DAY NEEDED INHALE TWO PUFFS BY MOUTH FOUR TIMES A DAY NEEDED SOLD: 02/07/2021 [facility] 90 mcg/actuation 12/07/2020 12:00:00 AM EDT HFA aerosol inha ler 8 INHALE TWO PUFFS BY MOUTH FOUR TIMES A DAY NEEDED INHALE TWO PUFFS BY MOUTH FOUR TIMES A DAY NEEDED SOLD: 12/08/2020 [facility] 10-325 mg 11/26/2020 12:00:00 AM EDT tablet 90 TAKE 1 TABLET BY MOUTH 3 TIMES A DAY NEEDED FOR PAIN MAXIMUM DAILY DOSE = 3 TAKE 1 TABLET BY MOUTH 3 TIMES A DAY NEEDED FOR PAIN MAXIMUM DAILY DOSE = 3 SOLD: 11/26/2020 [facility] 10 mg 10/31/2020 12:00:00 AM EDT tablet 30 TAKE ONE TABLET BY MOUTH AT BEDTIME NEEDED DIRECTED MAXIMUM DAILY DOSE = 1 TAKE ONE TABLET BY MOUTH AT BEDTIME NEEDED DIRECTED MAXIMUM DAILY DOSE = 1 SOLD: 12/25/2020 [facility] 10 mg 10/31/2020 12:00:00 AM EDT tablet 30 TAKE ONE TABLET BY MOUTH AT BEDTIME NEEDED DIRECTED MAXIMUM DAILY DOSE = 1 TAKE ONE TABLET BY MOUTH AT BEDTIME NEEDED DIRECTED MAXIMUM DAILY DOSE = 1 SOLD: 01/25/2021 [facility] 10 mg 10/31/2020 12:00:00 AM EDT tablet 30 TAKE ONE TABLET BY MOUTH AT BEDTIME NEEDED DIRECTED MAXIMUM DAILY DOSE = 1 TAKE ONE TABLET BY MOUTH AT BEDTIME NEEDED DIRECTED MAXIMUM DAILY DOSE = 1 SOLD: 11/07/2020 [facility] 10-325 mg 10/27/2020 12:00:00 AM EDT tablet 90 TAKE 1 TABLET BY MOUTH 3 TIMES A DAY NEEDED FOR PAIN MAXIMUM DAILY DOSE = 3 TAKE 1 TABLET BY MOUTH 3 TIMES A DAY NEEDED FOR PAIN MAXIMUM DAILY DOSE = 3 SOLD: 10/28/2020 [facility] 10-325 mg 09/29/2020 12:00:00 AM EDT tablet 90 TAKE ONE TABLET BY MOUTH THREE TIMES A DAY NEEDED FOR PAIN MAXIMUM DAILY DOSE = THREE TABLETS TAKE ONE TABLET BY MOUTH THREE TIMES A DAY NEEDED FOR PAIN MAXIMUM DAILY DOSE = THREE TABLETS SOLD: 09/29/2020 [facility] pantoprazole 40 MG Delayed Release Oral Tablet PANTOPRAZOLE SODIUM 09/24/2020 12:00:00 AM EDT tablet,delayed release (DR/EC) 30 T CASEY ONE TABLET BY MOUTH EVERY DAY TAKE ONE TABLET BY MOUTH EVERY DAY SOLD: 09/24/2020 [facility] 10-325 mg 08/30/2020 12:00:00 AM EST tablet 90 TAKE 1 TABLET BY MOUTH 3 TIMES A DAY NEEDED FOR PAIN MAXIMUM DAILY DOSE = 3 TAKE 1 TABLET BY MOUTH 3 TIMES A DAY NEEDED FOR PAIN MAXIMUM DAILY DOSE = 3 SOLD: 08/31/2020 [facility] 10-325 mg 08/02/2020 12:00:00 AM EST tablet 90 TAKE ONE TABLET BY MOUTH THREE TIMES A DAY NEEDED MAXIMUM DAILY DOSE = THREE TABLETS TAKE ONE TABLET BY MOUTH THREE TIMES A DAY NEEDED MAXIMUM DAILY DOSE = THREE TABLETS SOLD: 08/02/2020 [facility] 90 mcg/actuation 07/27/2020 12:00:00 AM EST HFA aerosol inha ler 8 INHALE 2 PUFFS BY MOUTH FOUR TIMES DAILY NEEDED INHALE 2 PUFFS BY MOUTH FOUR TIMES DAILY NEEDED SOLD: 08/02/2020 [facility] 25 mg 07/22/2020 12:00:00 AM EST tablet 30 TAKE ONE TABLET BY MOUTH EVERY MORNING WITH FOOD TAKE ONE TABLET BY MOUTH EVERY MORNING WITH FOOD SOLD: 07/25/2020 [facility] 10 mg 07/22/2020 12:00:00 AM EST tablet 30 TAKE ONE TABLET BY MOUTH AT BEDTIME NEEDED MAXIMUM DAILY DOSE = 1 TAKE ONE TABLET BY MOUTH AT BEDTIME NEEDED MAXIMUM DAILY DOSE = 1 SOLD: 10/01/2020 [facility] 40 mg 07/22/2020 12:00:00 AM EST tablet 30 TAKE ONE TABLET BY MOUTH EVERY DAY TAKE ONE TABLET BY MOUTH EVERY DAY SOLD: 08/31/2020 [facility] 25 mg 07/22/2020 12:00:00 AM EST tablet 90 TAKE ONE TABLET BY MOUTH THREE TIMES A DAY WITH FOOD TAKE ONE TABLET BY MOUTH THREE TIMES A DAY WITH FOOD S OLD: 10/28/2020 [facility] 1 mg 07/22/2020 12:00:00 AM EST tablet 30 TAKE ONE TABLET BY MOUTH EVERY DAY TAKE ONE TABLET BY MOUTH EVERY DAY SOLD: 10/28/2020 [facility] 10 mg 07/22/2020 12:00:00 AM EST tablet 30 TAKE ONE TABLET BY MOUTH AT BEDTIME NEEDED MAXIMUM DAILY DOSE = 1 TAKE ONE TABLET BY MOUTH AT BEDTIME NEEDED MAXIMUM DAILY DOSE = 1 SOLD: 08/28/2020 [facility] 10 mg 07/22/2020 12:00:00 AM EST tablet 30 TAKE ONE TABLET BY MOUTH AT BEDTIME NEEDED MAXIMUM DAILY DOSE = 1 TAKE ONE TABLET BY MOUTH AT BEDTIME NEEDED MAXIMUM DAILY DOSE = 1 SOLD: 07/25/2020 [facility] 25 mg 07/22/2020 12:00:00 AM EST tablet 30 TAKE ONE TABLET BY MOUTH EVERY MORNING WITH FOOD TAKE ONE TABLET BY MOUTH EVERY MORNING WITH FOOD SOLD: 08/28/2020 [facility] 40 mg 07/22/2020 12:00:00 AM EST tablet 30 TAKE ONE TABLET BY MOUTH EVERY DAY TAKE ONE TABLET BY MOUTH EVERY DAY SOLD: 09/24/2020 [facility] 1 mg 07/22/2020 12:00:00 AM EST tablet 30 TAKE ONE TABLET BY MOUTH EVERY DAY TAKE ONE TABLET BY MOUTH EVERY DAY SOLD: 09/24/2020 [facility] 25 mg 07/22/2020 12:00:00 AM EST tablet 90 TAKE ONE TABLET BY MOUTH THREE TIMES A DAY WITH FOOD TAKE ONE TABLET BY MOUTH THREE TIMES A DAY WITH FOOD S OLD: 09/24/2020 [facility] Potassium Chloride 10 MEQ Extended Release Oral Tablet POTAS SIUM CHLORIDE 07/22/2020 12:00:00 AM EST tablet extended release 30 TAKE ONE TABLET BY MOUTH EVERY DAY WITH FOOD TAKE ONE TABLET BY MOUTH EVERY DAY WITH FOOD SOLD: 01/06/2021 [facility] 25 mg 07/22/2020 12:00:00 AM EST tablet 30 TAKE ONE TABLET BY MOUTH EVERY DAY TAKE ONE TABLET BY MOUTH EVERY DAY SOLD: 07/25/2020 [facility] 1 gram 07/22/2020 12:00:00 AM EST tablet 120 TAKE ONE TABLET BY MOUTH FOUR TIMES A DAY ON EMPTY STOMACH TAKE ONE TABLET BY MOUTH FOUR TIMES A DA Y ON EMPTY STOMACH SOLD: 12/08/2020 [facility] Potassium Chloride 10 MEQ Extended Release Oral Tablet POTAS SIUM CHLORIDE 07/22/2020 12:00:00 AM EST tablet extended release 30 TAKE ONE TABLET BY MOUTH EVERY DAY WITH FOOD TAKE ONE TABLET BY MOUTH EVERY DAY WITH FOOD SOLD: 12/08/2020 [facility] 25 mg 07/22/2020 12:00:00 AM EST tablet 90 TAKE ONE TABLET BY MOUTH THREE TIMES A DAY WITH FOOD TAKE ONE TABLET BY MOUTH THREE TIMES A DAY WITH FOOD S OLD: 08/28/2020 [facility] 1 gram 07/22/2020 12:00:00 AM EST tablet 120 TAKE ONE TABLET BY MOUTH FOUR TIMES A DAY ON EMPTY STOMACH TAKE ONE TABLET BY MOUTH FOUR TIMES A DA Y ON EMPTY STOMACH SOLD: 10/28/2020 [facility] Potassium Chloride 10 MEQ Extended Release Oral Tablet POTAS SIUM CHLORIDE 07/22/2020 12:00:00 AM EST tablet extended release 30 TAKE ONE TABLET BY MOUTH EVERY DAY WITH FOOD TAKE ONE TABLET BY MOUTH EVERY DAY WITH FOOD SOLD: 10/28/2020 [facility] 25 mg 07/22/2020 12:00:00 AM EST tablet 90 TAKE ONE TABLET BY MOUTH THREE TIMES A DAY WITH FOOD TAKE ONE TABLET BY MOUTH THREE TIMES A DAY WITH FOOD S OLD: 07/25/2020 [facility] 40 mg 07/22/2020 12:00:00 AM EST tablet 30 TAKE ONE TABLET BY MOUTH EVERY DAY TAKE ONE TABLET BY MOUTH EVERY DAY SOLD: 07/25/2020 [facility] 25 mg 07/22/2020 12:00:00 AM EST tablet 30 TAKE ONE TABLET BY MOUTH EVERY DAY TAKE ONE TABLET BY MOUTH EVERY DAY SOLD: 08/31/2020 [facility] 1 gram 07/22/2020 12:00:00 AM EST tablet 120 TAKE ONE TABLET BY MOUTH FOUR TIMES A DAY ON EMPTY STOMACH TAKE ONE TABLET BY MOUTH FOUR TIMES A DA Y ON EMPTY STOMACH SOLD: 09/24/2020 [facility] 25 mg 07/22/2020 12:00:00 AM EST tablet 30 TAKE ONE TABLET BY MOUTH EVERY MORNING WITH FOOD TAKE ONE TABLET BY MOUTH EVERY MORNING WITH FOOD SOLD: 12/08/2020 [facility] Potassium Chloride 10 MEQ Extended Release Oral Tablet POTAS SIUM CHLORIDE 07/22/2020 12:00:00 AM EST tablet extended release 30 TAKE ONE TABLET BY MOUTH EVERY DAY WITH FOOD TAKE ONE TABLET BY MOUTH EVERY DAY WITH FOOD SOLD: 09/24/2020 [facility] 25 mg 07/22/2020 12:00:00 AM EST tablet 30 TAKE ONE TABLET BY MOUTH EVERY DAY TAKE ONE TABLET BY MOUTH EVERY DAY SOLD: 09/24/2020 [facility] 1 gram 07/22/2020 12:00:00 AM EST tablet 120 TAKE ONE TABLET BY MOUTH FOUR TIMES A DAY ON EMPTY STOMACH TAKE ONE TABLET BY MOUTH FOUR TIMES A DA Y ON EMPTY STOMACH SOLD: 08/31/2020 [facility] 25 mg 07/22/2020 12:00:00 AM EST tablet 30 TAKE ONE TABLET BY MOUTH EVERY DAY TAKE ONE TABLET BY MOUTH EVERY DAY SOLD: 10/28/2020 [facility] 1 mg 07/22/2020 12:00:00 AM EST tablet 30 TAKE ONE TABLET BY MOUTH EVERY DAY TAKE ONE TABLET BY MOUTH EVERY DAY SOLD: 07/25/2020 [facility] 1 gram 07/22/2020 12:00:00 AM EST tablet 120 TAKE ONE TABLET BY MOUTH FOUR TIMES A DAY ON EMPTY STOMACH TAKE ONE TABLET BY MOUTH FOUR TIMES A DA Y ON EMPTY STOMACH SOLD: 07/25/2020 [facility] 25 mg 07/22/2020 12:00:00 AM EST tablet 30 TAKE ONE TABLET BY MOUTH EVERY MORNING WITH FOOD TAKE ONE TABLET BY MOUTH EVERY MORNING WITH FOOD SOLD: 01/06/2021 [facility] Potassium Chloride 10 MEQ Extended Release Oral Tablet POTAS SIUM CHLORIDE 07/22/2020 12:00:00 AM EST tablet extended release 30 TAKE ONE TABLET BY MOUTH EVERY DAY WITH FOOD TAKE ONE TABLET BY MOUTH EVERY DAY WITH FOOD SOLD: 08/31/2020 [facility] 25 mg 07/22/2020 12:00:00 AM EST tablet 30 TAKE ONE TABLET BY MOUTH EVERY DAY TAKE ONE TABLET BY MOUTH EVERY DAY SOLD: 01/06/2021 [facility] 25 mg 07/22/2020 12:00:00 AM EST tablet 30 TAKE ONE TABLET BY MOUTH EVERY MORNING WITH FOOD TAKE ONE TABLET BY MOUTH EVERY MORNING WITH FOOD SOLD: 09/24/2020 [facility] Potassium Chloride 10 MEQ Extended Release Oral Tablet POTAS SIUM CHLORIDE 07/22/2020 12:00:00 AM EST tablet extended release 30 TAKE ONE TABLET BY MOUTH EVERY DAY WITH FOOD TAKE ONE TABLET BY MOUTH EVERY DAY WITH FOOD SOLD: 07/25/2020 [facility] 25 mg 07/22/2020 12:00:00 AM EST tablet 30 TAKE ONE TABLET BY MOUTH EVERY DAY TAKE ONE TABLET BY MOUTH EVERY DAY SOLD: 12/08/2020 [facility] 1 mg 07/22/2020 12:00:00 AM EST tablet 30 TAKE ONE TABLET BY MOUTH EVERY DAY TAKE ONE TABLET BY MOUTH EVERY DAY SOLD: 08/28/2020 [facility] 40 mg 07/22/2020 12:00:00 AM EST tablet 30 TAKE ONE TABLET BY MOUTH EVERY DAY TAKE ONE TABLET BY MOUTH EVERY DAY SOLD: 10/28/2020 [facility] 40 mg 07/22/2020 12:00:00 AM EST tablet 30 TAKE ONE TABLET BY MOUTH EVERY DAY TAKE ONE TABLET BY MOUTH EVERY DAY SOLD: 12/08/2020 [facility] 25 mg 07/22/2020 12:00:00 AM EST tablet 30 TAKE ONE TABLET BY MOUTH EVERY MORNING WITH FOOD TAKE ONE TABLET BY MOUTH EVERY MORNING WITH FOOD SOLD: 10/28/2020 [facility] 25 mg 07/22/2020 12:00:00 AM EST tablet 90 TAKE ONE TABLET BY MOUTH THREE TIMES A DAY WITH FOOD TAKE ONE TABLET BY MOUTH THREE TIMES A DAY WITH FOOD S OLD: 01/06/2021 [facility] 1 mg 07/22/2020 12:00:00 AM EST tablet 30 TAKE ONE TABLET BY MOUTH EVERY DAY TAKE ONE TABLET BY MOUTH EVERY DAY SOLD: 12/08/2020 [facility] 40 mg 07/22/2020 12:00:00 AM EST tablet 30 TAKE ONE TABLET BY MOUTH EVERY DAY TAKE ONE TABLET BY MOUTH EVERY DAY SOLD: 01/06/2021 [facility] 25 mg 07/22/2020 12:00:00 AM EST tablet 90 TAKE ONE TABLET BY MOUTH THREE TIMES A DAY WITH FOOD TAKE ONE TABLET BY MOUTH THREE TIMES A DAY WITH FOOD S OLD: 12/08/2020 [facility] 1 mg 07/22/2020 12:00:00 AM EST tablet 30 TAKE ONE TABLET BY MOUTH EVERY DAY TAKE ONE TABLET BY MOUTH EVERY DAY SOLD: 01/06/2021 [facility] 7.5-325 mg 07/13/2020 12:00:00 AM EST tablet 63 TAKE 1 TABLET BY MOUTH 3 TIMES A DAY NEEDED FOR PAIN MAXIMUM DAILY DOSE = 3 TAKE 1 TABLET BY MOUTH 3 TIMES A DAY NEEDED FOR PAIN MAXIMUM DAILY DOSE = 3 SOLD: 07/14/2020 [facility] 7.5-325 mg 07/07/2020 12:00:00 AM EST tablet 21 TAKE 1 TABLET BY MOUTH 3 TIMES A DAY NEEDED FOR PAIN MAXIMUM DAILY DOSE = 3 TAKE 1 TABLET BY MOUTH 3 TIMES A DAY NEEDED FOR PAIN MAXIMUM DAILY DOSE = 3 SOLD: 07/08/2020 [facility] 1 gram 06/18/2020 12:00:00 AM EST tablet 120 TAKE 1 TABLET BY MOUTH FOUR TIMES DAILY TAKE 1 TABLET BY MOUTH FOUR TIMES DAILY SOLD: 06/18/2020 [facility] 25 mg 06/18/2020 12:00:00 AM EST tablet 30 TAKE 1 TABLET BY MOUTH ONCE DAILY TAKE 1 TABLET BY MOUTH ONCE DAILY SOLD: 06/18/2020 [facility] 25 mg 06/18/2020 12:00:00 AM EST tablet 90 TAKE 1 TABLET BY MOUTH THREE TIMES DAILY TAKE 1 TABLET BY MOUTH THREE TIMES DAILY SOLD: 06/18/2020 [facility] 10 mEq 06/18/2020 12:00:00 AM EST tablet,ER particles/cry stals 30 TAKE 1 TABLET BY MOUTH ONCE DAILY TAKE 1 TABLET BY MOUTH ONCE DAILY SOLD: 06/18/2020 [facility] 1 mg 06/18/2020 12:00:00 AM EST tablet 30 TAKE ONE TABLET BY MOUTH EVERY DAY TAKE ONE TABLET BY MOUTH EVERY DAY SOLD: 06/18/2020 [facility] 40 mg 06/18/2020 12:00:00 AM EST tablet 30 TAKE 1 TABLET BY MOUTH ONCE DAILY TAKE 1 TABLET BY MOUTH ONCE DAILY SOLD: 06/18/2020 [facility] 7.5-325 mg 06/17/2020 12:00:00 AM EST tablet 63 TAKE ONE TABLET BY MOUTH THREE TIMES A DAY NEEDED FOR PAIN MAXIMUM DAILY DOSE = THREE TABLETS TAKE ONE TABLET BY MOUTH THREE TIMES A DAY NEEDED FOR PAIN MAXIMUM DAILY DOSE = THREE TABLETS SOLD: 06/18/2020 [facility] tizanidine 4 MG Oral Tablet TIZANIDINE HCL 06/06/2020 12:00:00 AM EST tablet 21 TAKE ONE TABLET BY MOUTH THREE TIMES A DAY NEEDED T CASEY ONE TABLET BY MOUTH THREE TIMES A DAY NEEDED SOLD: 06/06/2020 [facility] 25 mg 05/21/2020 12:00:00 AM EST tablet 42 TAKE ONE TABLET BY MOUTH TWICE A DAY TAKE ONE TABLET BY MOUTH TWICE A DAY SOLD: 05/24/2020 [facility] 7.5-325 mg 05/14/2020 12:00:00 AM EST tablet 45 TAKE 1 TABLET BY MOUTH EVERY 8 HOURS NEEDED MAXIMUM DAILY DOSE = 3 TABLETS TAKE 1 TABLET BY MOUTH EVERY 8 HOURS NEEDED MAXIMUM DAILY DOSE = 3 TABLETS SOLD: 05/14/2020 [facility] 50 mg 05/12/2020 12:00:00 AM EST tablet 30 TAKE ONE TABLET BY MOUTH EVERY DAY AT BEDTIME NEEDED FOR INSOMNIA TAKE ONE TABLET BY MOUTH EVERY DAY AT BEDTIME NEEDED FOR INSOMNIA SOLD: 06/18/2020 [facility] 10 mg 05/12/2020 12:00:00 AM EST tablet 30 TAKE ONE TABLET BY MOUTH EVERY DAY TAKE ONE TABLET BY MOUTH EVERY DAY SOLD: 09/24/2020 [facility] 50 mg 05/12/2020 12:00:00 AM EST tablet 30 TAKE ONE TABLET BY MOUTH EVERY DAY AT BEDTIME NEEDED FOR INSOMNIA TAKE ONE TABLET BY MOUTH EVERY DAY AT BEDTIME NEEDED FOR INSOMNIA SOLD: 05/14/2020 [facility] 10 mg 05/12/2020 12:00:00 AM EST tablet 30 TAKE ONE TABLET BY MOUTH EVERY DAY TAKE ONE TABLET BY MOUTH EVERY DAY SOLD: 12/08/2020 [facility] 10 mg 05/12/2020 12:00:00 AM EST tablet 30 TAKE ONE TABLET BY MOUTH EVERY DAY TAKE ONE TABLET BY MOUTH EVERY DAY SOLD: 05/14/2020 [facility] 10 mg 05/12/2020 12:00:00 AM EST tablet 30 TAKE ONE TABLET BY MOUTH EVERY DAY TAKE ONE TABLET BY MOUTH EVERY DAY SOLD: 10/28/2020 [facility] 10 mg 05/12/2020 12:00:00 AM EST tablet 30 TAKE ONE TABLET BY MOUTH EVERY DAY TAKE ONE TABLET BY MOUTH EVERY DAY SOLD: 02/04/2021 [facility] 10 mg 05/12/2020 12:00:00 AM EST tablet 30 TAKE ONE TABLET BY MOUTH EVERY DAY TAKE ONE TABLET BY MOUTH EVERY DAY SOLD: 08/28/2020 [facility] 10 mg 05/12/2020 12:00:00 AM EST tablet 30 TAKE ONE TABLET BY MOUTH EVERY DAY TAKE ONE TABLET BY MOUTH EVERY DAY SOLD: 06/18/2020 [facility] 10 mg 05/12/2020 12:00:00 AM EST tablet 30 TAKE ONE TABLET BY MOUTH EVERY DAY TAKE ONE TABLET BY MOUTH EVERY DAY SOLD: 07/25/2020 [facility] 10 mg 05/12/2020 12:00:00 AM EST tablet 30 TAKE ONE TABLET BY MOUTH EVERY DAY TAKE ONE TABLET BY MOUTH EVERY DAY SOLD: 01/06/2021 [facility] 7.5-325 mg 04/29/2020 12:00:00 AM EDT tablet 45 TAKE ONE TABLET BY MOUTH EVERY 8 HOURS NEEDED MAXIMUM DAILY DOSE = 3 TAKE ONE TABLET BY MOUTH EVERY 8 HOURS NEEDED MAXIMUM DAILY DOSE = 3 SOLD: 04/30/2020 [facility] 7.5-325 mg 04/16/2020 12:00:00 AM EDT tablet 45 TAKE ONE TABLET BY MOUTH EVERY 8 HOURS NEEDED MAXIMUM DAILY DOSE = 3 TAKE ONE TABLET BY MOUTH EVERY 8 HOURS NEEDED MAXIMUM DAILY DOSE = 3 SOLD: 04/16/2020 [facility] 7.5-325 mg 04/02/2020 12:00:00 AM EDT tablet 45 TAKE ONE TABLET BY MOUTH EVERY 8 HOURS NEEDED MAXIMUM DAILY DOSE = THREE TABLETS TAKE ONE TABLET BY MOUTH EVERY 8 HOURS NEEDED MAXIMUM DAILY DOSE = THREE TABLETS SOLD: 04/02/2020 [facility] 0.6 mg 03/23/2020 12:00:00 AM EDT tablet 21 TAKE ONE TABLET BY MOUTH THREE TIMES A DAY FOR 7 DAYS TAKE ONE TABLET BY MOUTH THREE TIMES A DAY FOR 7 DAYS SOLD: 03/25/2020 [facility] 7.5-325 mg 03/17/2020 12:00:00 AM EDT tablet 45 TAKE ONE TABLET BY MOUTH EVERY 8 HOURS NEEDED MAXIMUM DAILY DOSE = 3 TAKE ONE TABLET BY MOUTH EVERY 8 HOURS NEEDED MAXIMUM DAILY DOSE = 3 SOLD: 03/19/2020 [facility] 40 mg 03/15/2020 12:00:00 AM EDT tablet 30 TAKE ONE TABLET BY MOUTH EVERY DAY TAKE ONE TABLET BY MOUTH EVERY DAY SOLD: 04/16/2020 [facility] 25 mg 03/15/2020 12:00:00 AM EDT tablet 30 TAKE ONE TABLET BY MOUTH EVERY DAY TAKE ONE TABLET BY MOUTH EVERY DAY SOLD: 05/14/2020 [facility] 25 mg 03/15/2020 12:00:00 AM EDT tablet 30 TAKE ONE TABLET BY MOUTH EVERY DAY TAKE ONE TABLET BY MOUTH EVERY DAY SOLD: 04/16/2020 [facility] 40 mg 03/15/2020 12:00:00 AM EDT tablet 30 TAKE ONE TABLET BY MOUTH EVERY DAY TAKE ONE TABLET BY MOUTH EVERY DAY SOLD: 03/21/2020 [facility] 25 mg 03/15/2020 12:00:00 AM EDT tablet 30 TAKE ONE TABLET BY MOUTH EVERY DAY TAKE ONE TABLET BY MOUTH EVERY DAY SOLD: 03/21/2020 [facility] 40 mg 03/15/2020 12:00:00 AM EDT tablet 30 TAKE ONE TABLET BY MOUTH EVERY DAY TAKE ONE TABLET BY MOUTH EVERY DAY SOLD: 07/03/2020 [facility] 25 mg 03/15/2020 12:00:00 AM EDT tablet 30 TAKE ONE TABLET BY MOUTH EVERY DAY TAKE ONE TABLET BY MOUTH EVERY DAY SOLD: 06/18/2020 [facility] 40 mg 03/15/2020 12:00:00 AM EDT tablet 30 TAKE ONE TABLET BY MOUTH EVERY DAY TAKE ONE TABLET BY MOUTH EVERY DAY SOLD: 05/14/2020 [facility] 7.5-325 mg 03/03/2020 12:00:00 AM EDT tablet 45 TAKE ONE TABLET BY MOUTH EVERY 8 HOURS NEEDED MAXIMUM DAILY DOSE = 3 TAKE ONE TABLET BY MOUTH EVERY 8 HOURS NEEDED MAXIMUM DAILY DOSE = 3 SOLD: 03/04/2020 [facility] 100 mg 02/24/2020 12:00:00 AM EDT tablet 30 TAKE ONE TABLET BY MOUTH EVERY DAY TAKE ONE TABLET BY MOUTH EVERY DAY SOLD: 10/28/2020 [facility] 10 mg 02/24/2020 12:00:00 AM EDT tablet 30 TAKE ONE TABLET BY MOUTH EVERY DAY AT BEDTIME NEEDED MAXIMUM DAILY DOSE = ONE TABLET TAKE ONE TABLET BY MOUTH EVERY DAY AT BEDTIME NEEDED MAXIMUM DAILY DOSE = ONE TABLET SOLD: 03/04/2020 [facility] 10 mg 02/24/2020 12:00:00 AM EDT tablet 30 TAKE ONE TABLET BY MOUTH EVERY DAY AT BEDTIME NEEDED MAXIMUM DAILY DOSE = ONE TABLET TAKE ONE TABLET BY MOUTH EVERY DAY AT BEDTIME NEEDED MAXIMUM DAILY DOSE = ONE TABLET SOLD: 05/16/2020 [facility] 100 mg 02/24/2020 12:00:00 AM EDT tablet 30 TAKE ONE TABLET BY MOUTH EVERY DAY TAKE ONE TABLET BY MOUTH EVERY DAY SOLD: 12/08/2020 [facility] 15 mg 02/24/2020 12:00:00 AM EDT tablet 30 TAKE ONE TABLET BY MOUTH EVERY DAY WITH FOOD TAKE ONE TABLET BY MOUTH EVERY DAY WITH FOOD SOLD: 04/16/2020 [facility] 100 mg 02/24/2020 12:00:00 AM EDT tablet 30 TAKE ONE TABLET BY MOUTH EVERY DAY TAKE ONE TABLET BY MOUTH EVERY DAY SOLD: 08/28/2020 [facility] 15 mg 02/24/2020 12:00:00 AM EDT tablet 30 TAKE ONE TABLET BY MOUTH EVERY DAY WITH FOOD TAKE ONE TABLET BY MOUTH EVERY DAY WITH FOOD SOLD: 05/14/2020 [facility] 90 mcg/actuation 02/24/2020 12:00:00 AM EDT HFA aerosol inha ler 18 INHALE ONE PUFF BY MOUTH EVERY 4 HOURS NEEDED INHALE ONE PUFF BY MOUTH EVERY 4 HOURS NEEDED SOLD: 03/04/2020 [facility] 100 mg 02/24/2020 12:00:00 AM EDT tablet 30 TAKE ONE TABLET BY MOUTH EVERY DAY TAKE ONE TABLET BY MOUTH EVERY DAY SOLD: 09/24/2020 [facility] 15 mg 02/24/2020 12:00:00 AM EDT tablet 25 TAKE ONE TABLET BY MOUTH EVERY DAY WITH FOOD TAKE ONE TABLET BY MOUTH EVERY DAY WITH FOOD SOLD: 03/04/2020 [facility] 10 mg 02/24/2020 12:00:00 AM EDT tablet 30 TAKE ONE TABLET BY MOUTH EVERY DAY AT BEDTIME NEEDED MAXIMUM DAILY DOSE = ONE TABLET TAKE ONE TABLET BY MOUTH EVERY DAY AT BEDTIME NEEDED MAXIMUM DAILY DOSE = ONE TABLET SOLD: 04/20/2020 [facility] 15 mg 02/24/2020 12:00:00 AM EDT tablet 30 TAKE ONE TABLET BY MOUTH EVERY DAY WITH FOOD TAKE ONE TABLET BY MOUTH EVERY DAY WITH FOOD SOLD: 06/18/2020 [facility] 100 mg 02/24/2020 12:00:00 AM EDT tablet 30 TAKE ONE TABLET BY MOUTH EVERY DAY TAKE ONE TABLET BY MOUTH EVERY DAY SOLD: 07/25/2020 [facility] 100 mg 02/24/2020 12:00:00 AM EDT tablet 30 TAKE ONE TABLET BY MOUTH EVERY DAY TAKE ONE TABLET BY MOUTH EVERY DAY SOLD: 06/18/2020 [facility] 15 mg 02/24/2020 12:00:00 AM EDT tablet 30 TAKE ONE TABLET BY MOUTH EVERY DAY WITH FOOD TAKE ONE TABLET BY MOUTH EVERY DAY WITH FOOD SOLD: 07/25/2020 [facility] 100 mg 02/24/2020 12:00:00 AM EDT tablet 30 TAKE ONE TABLET BY MOUTH EVERY DAY TAKE ONE TABLET BY MOUTH EVERY DAY SOLD: 05/14/2020 [facility] 100 mg 02/24/2020 12:00:00 AM EDT tablet 30 TAKE ONE TABLET BY MOUTH EVERY DAY TAKE ONE TABLET BY MOUTH EVERY DAY SOLD: 02/04/2021 [facility] 15 mg 02/24/2020 12:00:00 AM EDT tablet 30 TAKE ONE TABLET BY MOUTH EVERY DAY WITH FOOD TAKE ONE TABLET BY MOUTH EVERY DAY WITH FOOD SOLD: 08/28/2020 [facility] 100 mg 02/24/2020 12:00:00 AM EDT tablet 30 TAKE ONE TABLET BY MOUTH EVERY DAY TAKE ONE TABLET BY MOUTH EVERY DAY SOLD: 04/16/2020 [facility] 100 mg 02/24/2020 12:00:00 AM EDT tablet 30 TAKE ONE TABLET BY MOUTH EVERY DAY TAKE ONE TABLET BY MOUTH EVERY DAY SOLD: 01/06/2021 [facility] 100 mg 02/24/2020 12:00:00 AM EDT tablet 15 TAKE ONE TABLET BY MOUTH EVERY DAY TAKE ONE TABLET BY MOUTH EVERY DAY SOLD: 03/04/2020 [facility] 15 mg 02/24/2020 12:00:00 AM EDT tablet 30 TAKE ONE TABLET BY MOUTH EVERY DAY WITH FOOD TAKE ONE TABLET BY MOUTH EVERY DAY WITH FOOD SOLD: 09/24/2020 [facility] 10 mg 01/14/2020 12:00:00 AM EDT tablet 30 TAKE ONE TABLET BY MOUTH EVERY DAY TAKE ONE TABLET BY MOUTH EVERY DAY SOLD: 04/16/2020 [facility] 25 mg 01/14/2020 12:00:00 AM EDT tablet 60 TAKE ONE TABLET BY MOUTH TWICE A DAY TAKE ONE TABLET BY MOUTH TWICE A DAY SOLD: 04/16/2020 [facility] 10 mg 01/14/2020 12:00:00 AM EDT tablet 30 TAKE ONE TABLET BY MOUTH EVERY DAY TAKE ONE TABLET BY MOUTH EVERY DAY SOLD: 03/21/2020 [facility] 25 mg 01/14/2020 12:00:00 AM EDT tablet 60 TAKE ONE TABLET BY MOUTH TWICE A DAY TAKE ONE TABLET BY MOUTH TWICE A DAY SOLD: 03/21/2020 [facility] 50 mg 01/10/2020 12:00:00 AM EDT tablet 30 TAKE ONE TABLET BY MOUTH AT BEDTIME NEEDED FOR INSOMNIA TAKE ONE TABLET BY MOUTH AT BEDTIME N EEDED FOR INSOMNIA SOLD: 04/16/2020 [facility] 50 mg 01/10/2020 12:00:00 AM EDT tablet 30 TAKE ONE TABLET BY MOUTH AT BEDTIME NEEDED FOR INSOMNIA TAKE ONE TABLET BY MOUTH AT BEDTIME N EEDED FOR INSOMNIA SOLD: 03/21/2020 [facility] 50 mg 12/09/2019 12:00:00 AM EDT tablet 45 TAKE ONE AND ONE-HALF TABLETS BY MOUTH AT BEDTIME TAKE ONE AND ONE-HALF TABLETS BY MOUTH AT BEDTIME SOLD : 04/16/2020 [facility] 50 mg 12/09/2019 12:00:00 AM EDT tablet 45 TAKE ONE AND ONE-HALF TABLETS BY MOUTH AT BEDTIME TAKE ONE AND ONE-HALF TABLETS BY MOUTH AT BEDTIME SOLD : 05/14/2020 [facility] 50 mg 12/09/2019 12:00:00 AM EDT tablet 45 TAKE ONE AND ONE-HALF TABLETS BY MOUTH AT BEDTIME TAKE ONE AND ONE-HALF TABLETS BY MOUTH AT BEDTIME SOLD : 03/21/2020 [facility] Prednisone 20 MG Oral Tablet prednisone 20 mg tablet prednisone 20 mg tablet completed prednisone 20 MG Oral Tablet PL[facility]ID[facility] ([facility]) pantoprazole 40 MG Delayed Release Oral Tablet pantoprazole 40 mg tablet,delayed release TAKE ONE TABLET BY MOUTH TWICE A DAY pantoprazole 40 mg tablet,delayed release TAKE ONE TABLET BY MOUTH TWICE A DAY completed pantoprazole 40 MG Delayed Release Oral Tablet [facility] ([facility]) Sucralfate 100 MG/ML Oral Suspension sucralfate 100 mg /mL oral suspension sucralfate 100 mg/mL oral suspension c ompleted sucralfate 100 MG/ML Oral Suspension [facility] ([facility]) albuterol sulfate HFA 90 mcg/actuation aerosol inhaler [id number] completed [id number] 200 ACTUAT albuterol 0.09 MG/ACTUAT Metered Dose Inhaler PLACIDO ([facility]) Acetaminophen 325 MG / Oxycodone Hydroch loride 5 MG Oral Tablet oxycodone- acetaminophen 5 mg-325 mg tablet oxycodone-acetaminophen 5 mg-325 mg tablet completed acetaminop hen 325 MG / oxycodone hydrochloride 5 MG Oral Tablet [facility] ([facility]) rivaroxaban 15 MG Oral Tablet rivaroxaban (Xarelto) 15 MG TABS rivaroxaban (Xarelto) 15 MG TABS 1 {tbl} Oral aborted Take 1 tablet by mouth daily [facility] pantoprazole 40 MG Delayed Release Oral Tablet pantoprazole (PROTONIX) 40 MG tablet pantoprazole (PROTONIX) 40 MG tablet 40 mg Oral aborted Take 40 mg [address] mouth [address] [facility] Sucralfate 1000 MG Oral Tablet sucralfate (CARAFATE) 1 g tablet sucralfate (CARAFATE) 1 g tablet 1 g Oral aborted Take 1 g by mouth 4 (four) times a day [facility] Spironolactone 25 MG Oral Tablet spironolactone (ALDAC TONE) 25 MG tablet spironolactone (ALDACTONE) 25 MG tablet 25 mg Oral aborted Take 25 mg [address] mouth [address] [facility] 1 ML Enoxaparin sodium 150 MG/ML Prefill ed Syringe enoxaparin (LOVENOX) 150 MG/ML injection enoxaparin (LOVENOX) 150 MG/ML injection 130 mg Subcutaneous aborted Inject 130 mg under the skin every 12 (twelve) hours [facility] Daily Gabriel (THERAGRAN) per tablet 85137-683-02 1 {tbl} Oral aborted Take 1 tablet by mouth daily [facility] Nitroglycerin 0.4 MG Sublingual Tablet n itroglycerin 0.[address] ONE TABLET UNDER THE TONGUE EVERY 5 MINUTES FOR UP TO 3 DOSES NEEDED FOR CHEST PAIN. IF CHEST PAIN STILL PERSISTS CONTACT 911 nitroglycerin 0.[address] ONE TABLET UNDER THE TONGUE EVERY 5 MINUTES FOR UP TO 3 DOSES NEEDED FOR CHEST PAIN. IF CHEST PAIN STILL PERSISTS CONTACT 911 completed nitroglycerin 0.4 MG Sublingual Tablet [facility]IDO ([facility]) Oxycodone Hydrochloride 5 MG Oral Tablet oxycodone 5 m g tablet oxycodone 5 mg tablet completed oxycodone hydro chloride 5 MG Oral Tablet [facility]IDO ([facility]) Lisinopril 40 MG Oral Tablet lisinopril 40 mg tablet TAKE ONE TABLET BY MOUTH EVERY DAY lisinopril 40 mg tablet TAKE ONE TABLET BY MOUTH EVERY DAY completed lisinopril 40 MG Oral Tablet PLACIDO ([facility]) gabapentin 300 MG Oral Tablet [Gralise] Gralise 300 mg tablet,extended release TAKE THREE TABLETS BY MOUTH EVERY DAY Gralise 300 mg tablet,extended release TAKE THREE TABLETS BY MOUTH EVERY DAY completed Once-Daily gabapentin 300 MG Oral Tablet [Gralise] PLACIDO ([facility]) Acetaminophen 325 MG / Oxycodone Hydroch loride 7.5 MG Oral Tablet oxycodone- acetaminophen 7.5 mg-325 mg tablet oxycodone-acetaminophen 7.5 mg-325 mg tablet completed acetam inophen 325 MG / oxycodone hydrochloride 7.5 MG Oral Tablet [facility] ([facility]) Hydroxyzine Hydrochloride 25 MG Oral Tab let hydroxyzine HCl 25 mg tablet TAKE 1 TABLET BY MOUTH AT BEDTIME NEEDED FOR INSOMNIA hydroxyzine HCl 25 mg tablet TAKE 1 TABLET BY MOUTH AT BEDTIME NEEDED FOR INSOMNIA completed hydroxyzine hydrochloride 25 MG Oral Tab let [facility] ([facility]) Acetaminophen 325 MG / Oxycodone Hydroch loride 10 MG Oral Tablet oxyCODONE- acetaminophen (PERCOCET) 10-325 MG per tablet oxyCODONE-acetaminophen (PERCOCET) 10-325 MG per tablet 1 {tbl} Oral aborted Take 1 tablet by mouth every 4 (four) hours as needed for pain MDD [address] [facility] Colchicine 0.6 MG Oral Tablet colchicine 0.6 mg tablet colch icine 0.6 mg tablet completed colchicine 0.6 MG Oral Tablet [facility] ([facility]) Insurance Providers Payer name Policy type / Coverage type Policy ID Covered alliance party ID Covered alliance party's relationship to kim Policy Kim Plan Information MEDICARE [id number] Attending [id number] A AETNA MEDICARE Medicare [id number] Aetna Medicare F MEBVRTTY SELF MEBVR TTY AETNA MEDICARE [id number] Geno 10 [id number] AETNA MEDICARE [id number] Geno MEBVR TTY Aetna Medicare F [id number] SELF 10 [id number] INSURANCE COVID-19 COVID Geno C OVID INSURANCE COVID-19 [id number] Aetna Medicare F MEBVRTTY SELF MEBVR TTY AETNA MEDICARE ADVANTAGE [id number] Retired MEBVRTTY AETNA MEDICARE ADVANTAGE MEBVRTTY Other MEBVRTTY AETNA MEDICARE [id number] SP [id number] AETNA MEDICARE MEBVRTTY SP MEBVR TTY AETNA MEDICARE [id number] SP [id number] AETNA MEDICARE ADVANTAGE MEBVRTTY Other MEBVRTTY MEDICARE [id number] Other [id number] AETNA MEDICARE ADVANTAGE [id number] Other [id number] AETNA MEDICARE ADVANTAGE [id number] Other [id number] AETNA MEDICARE ADVANTAGE [id number] S [id number] AETNA MEDICARE [id number] SP [id number] MEDICARE [id number] SP [id number] A MEDICARE [id number] SP [id number] AETNA MEDICARE O [id number] S [id number] AETNA MEDICARE ADVANTAGE [id number] Other [id number] WELLCARE [id number] Other [id number] AETNA MEDICARE [id number] SP [id number] WELLCARE [id number] SP [id number] AETNA MEDICARE ADVANTAGE [id number] S [id number] WELLCARE -RECURRING [id number] 18 [id number] MEDICARE -RECURRING [id number] 18 [id number] MEDICARE [id number] S [id number] A MEDICARE [id number] S [id number] A MEDICAID [id number] S [id number] AETNA MEDICARE MEBVRTTY SP MEBVR TTY MEDICARE [id number] S [id number] WELLCARE [id number] S [id number] MEDICARE [id number] S [id number] A MEDICARE [id number] S [id number] A AETNA MEDICARE ADVANTAGE [id number] Retired [id number] MEDICARE [id number] Retired [id number] AETNA MEDICARE ADVANTAGE MEBVRTTY Other MEBVRTTY FINANCIAL ASSISTANCE [id number] Other [id number] AETNA MEDICARE ADVANTAGE [id number] Other [id number] AETNA MEDICARE ADVANTAGE [id number] Retired [id number] Problems, Conditions, and Diagnoses Code Display Name Description Problem Type Effective Dates Data Source(s) Z79.01 alf (current) use 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 joetal Z96.643 Presence of artificial hip joint, bilate ral PRESENCE OF ARTIFICIAL HIP JOINT, BILATERAL Diagnosis 03/21/2021 06:58:00 PM EDT [facility] joetal F17.200 Nicotine dependence, unspecified, uncomp licated NICOTINE DEPENDENCE, UNSPECIFIED, UNCOMPLICATED Diagnosis 03/21/2021 06:58:00 PM [facility] I25.2 Old myocardial infarction OLD MYOCARDIAL INFARCTION Di agnosis 03/21/2021 06:58:00 PM [facility] I10 Essential (primary) hypertension ESSENTIAL (PRIMARY) H YPERTENSION Diagnosis 03/21/2021 06:58:00 PM [facility] I25.10 Atherosclerotic heart diseas e of [place] coronary artery without angina pectoris ATHSCL HEART DISEASE OF [place] CORONARY ARTERY W/O ANG PCTRS Diagnosis 03/21/2021 06:58:00 PM [facility] J44.9 Chronic obstructive pulmonary disease, u nspecified CHRONIC OBSTRUCTIVE PULMONARY DISEASE, UNSPECIFIED Diagnosis 03/21/2021 06:58:00 PM [facility] Z20.822 CONTACT WITH AND (SUSPECTED) EXPOSURE TO COVID-19 CONTACT WITH AND (SUSPECTED) EXPOSURE TO COVID-19 Diagnosis 03/21/2021 06:58:00 PM EDT [facility] 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, right ankle and foot ID IOPATHIC GOUT, RIGHT ANKLE AND FOOT Diagnosis 02/20/2021 09:01:00 AM T [facility] R22.42 Localized swelling, mass and lump, left lower limb LOCALIZED SWELLING, MASS AND LUMP, LEFT LOWER LIMB Diagnosis 02/14/2021 08:34:00 PM EDT [facility] M48.062 Spinal stenosis, lumbar region with neur ogenic claudication SPINAL STENOSIS, LUMBAR REGION WITH NEUROGENIC CLAUDICATION Diagnosis 0 12/23/2020 10:34:[address] [facility] J38.3 Other diseases of vocal cords OTHER DISEASES OF VOCAL CORDS Diagnosis 12/23/2020 10:34:[address] [facility] Z01.818 Encounter for other preprocedural examin ation ENCOUNTER FOR OTHER PREPROCEDURAL EXAMINATION Diagnosis 12/23/2020 10:34:[address] [facility] I10 Essential (primary) hypertension ESSENTIAL (PRIMARY) H YPERTENSION Diagnosis 12/07/2020 08:21:00 AM T [facility] J44.9 Chronic obstructive pulmonary disease, u nspecified CHRONIC OBSTRUCTIVE PULMONARY DISEASE, UNSPECIFIED Diagnosis 12/07/2020 08:21:00 AM EDT [facility] F17.200 Nicotine dependence, unspecified, uncomp licated NICOTINE DEPENDENCE, UNSPECIFIED, UNCOMPLICATED Diagnosis 12/07/2020 08:21:[address] [facility] Z12.2 Encounter for screening for malignant ne oplasm of respiratory organs ENCNTR SCREEN FOR MALIGNANT NEOPLASM OF RESPIRATORY ORGANS Diagnosis 12/07/2020 08:21:[address] [facility] R49.0 Dysphonia DYSPHONIA Diagnosis 12/07/2020 08:21:[address] [facility] I07.1 Rheumatic tricuspid insufficiency RHEUMATIC TRIC USPID INSUFFICIENCY Diagnosis 12/06/2020 11:35:[address] [facility] I34.0 Nonrheumatic mitral (valve) insufficienc y NONRHEUMATIC MITRAL (VALVE) INSUFFICIENCY Diagnosis 12/06/2020 11:35:00 AM [facility] I51.7 Cardiomegaly CARDIOMEGALY Diagnosis 12/06/2020 11:35:[address] [facility] I50.30 Unspecified diastolic (congestive) heart failure UNSPECIFIED DIASTOLIC (CONGESTIVE) HEART FAILURE Diagnosis 12/06/2020 11:35:[address] [facility] R07.9 Chest pain, unspecified CHEST PAIN, UNSPECIFIED Diagno sis 12/06/2020 11:35:[address] [facility] I48.91 Unspecified atrial fibrillation UNSPECIFIED ATRI AL FIBRILLATION Diagnosis 12/06/2020 11:35:[address] [facility] G47.33 Obstructive sleep apnea (adult) (pediatr ic) OBSTRUCTIVE SLEEP APNEA (ADULT) (PEDIATRIC) Diagnosis 11/29/2020 12:52:00 PM [facility] E66.9 Obesity, unspecified OBESITY, UNSPECIFIED Diagnosis 11/29/2020 12:52:[address] [facility] F17.210 Nicotine dependence, cigarettes, uncompl icated NICOTINE DEPENDENCE, CIGARETTES, UNCOMPLICATED Diagnosis 11/29/2020 12:52:[address] [facility] E78.5 Hyperlipidemia, unspecified HYPERLIPIDEMIA, UNSPECIFIE D Diagnosis 11/29/2020 12:52:[address] [facility] N18.30 CHRONIC KIDNEY DISEASE, STAGE 3 UNSPECIF IED CHRONIC KIDNEY DISEASE, STAGE 3 UNSPECIFIED Diagnosis 11/11/2020 08:32:00 AM [facility] I12.9 Hypertensive chronic kidney disease with stage 1 through stage 4 chronic kidney disease, or unspecified chronic kidney disease HYPERTENSIVE CHRONIC KIDNEY DISEASE W STG 1-4/UNSP CHR KDNY Diagnosis 11/11/2020 08:32:00 A M EDT [facility] I48.21 PERMANENT ATRIAL FIBRILLATION PERMANENT ATRIAL FIBRILL ATION Diagnosis 11/11/2020 08:32:00 AM EDT [facility] M48.062 Spinal stenosis, lumbar region with neur ogenic claudication Spinal stenosis, lumbar region with neur Diagnosis 11/09/2020 11:01:[address] [facility] M51.36 Other intervertebral disc degeneration, lumbar region Other intervertebral disc degeneration, Diagnosis 11/09/2020 11:01:[address] [facility] U07.1 COVID-19 COVID-19 Diagnosis 11/09/2020 10:03:[address] [facility] Z01.818 Encounter for other preprocedural examin ation ENCOUNTER FOR OTHER PREPROCEDURAL EXAMINATION Diagnosis 11/08/2020 02:37:00 PM EDT [facility] Z86.79 Personal history of other diseases of th e circulatory system PERSONAL HISTORY OF OTHER DISEASES OF THE CIRCULATORY SYSTEM Diagnosis 01:59:00 PM EDT [facility] M54.9 Dorsalgia, unspecified DORSALGIA, UNSPECIFIED Diagnosi s 11/08/2020 01:59:00 PM EDT [facility] I48.91 Atrial fibrillation Atrial fibrillation [id number] 01/30/2021 12:00:[address] [facility] J44.9 COPD (chronic obstructive pulmonary dise ase) COPD (chronic obstructive pulmonary disease) [id number] 01/30/2021 12:00:[address] [facility] K21.9 GERD (gastroesophageal reflux disease) G ERD (gastroesophageal reflux disease) [id number] 01/30/2021 12:00:[address] [facility] E78.5 Hyperlipidemia Hyperlipidemia [id number] 01/30/2021 12:00: [address] [facility] I10 Hypertension Hypertension [id number] 01/30/2021 12:00:[address] [facility] G47.30 Sleep apnea Sleep apnea [id number] 01/30/2021 12:00:[address] 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 Problem 12/15/2020 12:00:00 AM EDT [facility] ([facility], ) [id number] Essential hypertension Essential hypertension Problem 12/12/2020 12:00:00 AM [facility] ([facility], ) Surgeries/Procedures Procedure Description Date Indications Data Source(s) CT THORAX W/CONTRAST MATERIAL CT THORAX W/DYE 03/21/2021 12:00:00 A M [facility] Low osmolar contrast material, 300-399 mg/ml iodine co ncentration, per ml Locm 300-399mg/ml iodine,1ml Long 03/21/2021 12:00:00 AM [facility] [address]26 X-RAY EXAM CHEST 1 VIEW 03/21/2021 12:00:00 AM [facility] ECG ROUTINE ECG W/LEAST 12 LDS TRCG ONLY W/O I&R ELECTROCARD IOGRAM TRACING 03/21/2021 12:00:00 AM [facility] [address]99 SARS-COV-2 COVID-19 AMP PRB 03/21/2021 12:00:00 AM [facility] COLLECTION VENOUS BLOOD VENIPUNCTURE ROUTINE VENIPUNCTURE 12:00:00 AM [facility] THROMBOPLASTIN TIME PARTIAL PLASMA/WHOLE BLOOD THROMBOPLASTI N TIME PARTIAL 03/21/2021 12:00:00 AM [facility] PROTHROMBIN TIME PROTHROMBIN TIME 03/21/2021 12:00:00 AM [facility] BLOOD COUNT COMPLETE AUTO&AUTO DIFRNTL WBC COUNT COMPLETE CB C W/AUTO DIFF WBC 03/21/2021 12:00:00 AM [facility] NATRIURETIC PEPTIDE ASSAY OF NATRIURETIC PEPTIDE 03/21/2021 12:00:0 0 AM [facility] TROPONIN QUANTITATIVE ASSAY OF TROPONIN QUANT 03/21/2021 12:00:00 A M [facility] LIPASE ASSAY OF LIPASE 03/21/2021 12:00:00 AM [facility] COMPREHENSIVE METABOLIC PANEL COMPREHEN METABOLIC PANEL 03/08 12:00:00 AM [facility] FIBRIN DGRADJ PRODUCTS D-DIMER QUANTITATIVE FIBRIN DEGRADATI ON QUANT 03/21/2021 12:00:00 AM [facility] Non-covered item or service NON-COVERED ITEM OR SERVICE 03/08 12:00:00 AM [facility] PRESSURIZED/NONPRESSURIZED INHALATION TREATMENT AIRWAY INHAL ATION TREATMENT 03/21/2021 12:00:00 AM [facility] EMERGENCY DEPT VISIT HIGH SEVERITY&THREAT FUNCJ EMERGENCY DE PT VISIT 03/21/2021 12:00:00 AM [facility] outpatient clinic visit for assessment and ma nagement of a patient Hospital Outpatient Clinic Visit 02/20/2021 12:00:[address] [facility] EMERGENCY DEPARTMENT VISIT MODERATE SEVERITY EMERGENCY DEPT VISIT 02/14/2021 12:00:00 AM [facility] PHOSPHORUS INORGANIC <td>PHOSPHORUS</td><td>STAT< /td><td>02/03/2021 11:55 AM EDT</td><td></td><td> </td> 02/03/2021 11:55:[address] [facility] MAGNESIUM <td>MAGNESIUM</td><td>STAT</ td><td>02/03/2021 11:55 AM EDT</td><td></td><td> </td> 02/03/2021 11:55:[address] [facility] BLOOD COUNT HEMATOCRIT <td>HEMATOCRIT</td><td>Timed </td><td>02/02/2021 6:31 AM EDT</td><td></td><td> </td> 02/02/2021 06:31:[address] [facility] URNLS DIP STICK/TABLET REAGENT AUTO MICROSCOPY <td>URI NALYSIS, MICROSCOPIC ONLY</td><td>Routine</td><td>02/01/2021 3:00 PM EDT</td><td></td><td> </td> 02/01/2021 03:00:[address] [facility] BLOOD COUNT HEMATOCRIT <td>HEMATOCRIT</td><td>Timed </td><td>02/01/2021 5:01 AM EDT</td><td></td><td> </td> 02/01/2021 05:01:[address] [facility] BLOOD COUNT COMPLETE AUTOMATED <td>CBC</td><td>Routine </td><td>01/31/2021 5:00 AM EDT</td><td></td><td> </td> 01/31/2021 05:00:[address] [facility] BASIC METABOLIC PANEL CALCIUM TOTAL <td>BASIC METABOLI C PANEL</td><td>Routine</td><td>01/31/2021 5:00 AM EDT</td><td></td><td> </td> 01/31/2021 05:00:[address] [facility] RADEX SPINE 1 VIEW SPECIFY LEVEL <td>XR OR SPINE LUMBA R CONTINUATION</td><td>STAT</td><td>01/30/2021 3:13 PM EDT</td><td></td><td> </td> 01/30/2021 03:13:[address] [facility] XR OR SPINE LUMBAR <td>XR OR SPINE LUMBAR</td>< td>STAT</td><td>01/30/2021 11:57 AM EDT</td><td></td><td> </td> 01/30/2021 11:57:[address] [facility] KAM FACETEC&FORAMOT 1 SEGMENT LUMBAR <td>LAMINECTOMY, SPINE, THORACOLUMBAR, 3 OR MORE LEVELS, WITH DECOMPRESSION</td><td></td><td>01/30/2021 11:17 AM EDT</td><td> Degenerative lumbar disc Spinal stenosis of lumbar region with neurogenic claudication</td><td></td> 01/30/2021 11:17:00 AM EDT - 01/30/2021 02:59:00 PM EDT Spinal stenosis of lumbar region with neurogenic claudicationDegenerative lumbar disc [facility] Spinal stenosis of lumbar region with ne urogenic claudication Degenerative lumbar disc THROMBOPLASTIN TIME PARTIAL PLASMA/WHOLE BLOOD <td>APTT</td><td>Routine</td><td>01/25/2021 10:55 AM EDT</td><td> Degenerative lumbar disc Spinal stenosis of lumbar region with neurogenic claudication</td><td> </td> 01/25/2021 10:55:00 AM EDT Spinal stenosis of lumbar region with ne urogenic claudicationDegenerative lumbar disc [facility] Spinal stenosis of lumbar region with ne urogenic claudication Degenerative lumbar disc PROTHROMBIN TIME <td>PROTIME-INR</td><td>Rout ine</td><td>01/25/2021 10:55 AM EDT</td><td> Degenerative lumbar disc Spinal stenosis of lumbar region with neurogenic claudication</td><td> </td> 01/25/2021 10:55:00 AM EDT Spinal stenosis of lumbar region with ne urogenic claudicationDegenerative lumbar disc [facility] Spinal stenosis of lumbar region with ne urogenic claudication Degenerative lumbar disc BLOOD COUNT COMPLETE AUTOMATED <td>CBC</td><td>Routine </td><td>01/25/2021 10:55 AM EDT</td><td> Degenerative lumbar disc Spinal stenosis of lumbar region with neurogenic claudication</td><td> </td> 01/25/2021 10:55:00 AM EDT Spinal stenosis of lumbar region with ne urogenic claudicationDegenerative lumbar disc [facility] Spinal stenosis of lumbar region with ne urogenic claudication Degenerative lumbar disc BLOOD TYPING ABO <td>TYPE AND SCREEN</td><td> Routine</td><td>01/25/2021 10:55 AM EDT</td><td> Degenerative lumbar disc Spinal stenosis of lumbar region with neurogenic claudication</td><td> </td> 01/25/2021 10:55:00 AM EDT Spinal stenosis of lumbar region with ne urogenic claudicationDegenerative lumbar disc [facility] Spinal stenosis of lumbar region with ne urogenic claudication Degenerative lumbar disc HEMOGLOBIN GLYCOSYLATED A1C <td>HEMOGLOBIN A1C</td><td>Routine</td><td>01/25/2021 10:55 AM EDT</td><td> Degenerative lumbar disc Spinal stenosis of lumbar region with neurogenic claudication</td><td> </td> 01/25/2021 10:55:00 AM EDT Spinal stenosis of lumbar region with ne urogenic claudicationDegenerative lumbar disc [facility] Spinal stenosis of lumbar region with ne urogenic claudication Degenerative lumbar disc COMPREHENSIVE METABOLIC PANEL <td>COMPREHENSIVE METABO LIC PANEL</td><td>Routine</td><td>01/25/2021 10:55 AM EDT</td><td> Degenerative lumbar disc Spinal stenosis of lumbar region with neurogenic claudication</td><td> </td> 01/25/2021 10:55:00 AM EDT Spinal stenosis of lumbar region with ne urogenic claudicationDegenerative lumbar disc [facility] Spinal stenosis of lumbar region with ne urogenic claudication Degenerative lumbar disc OFFICE OUTPATIENT VISIT 25 MINUTES 01/03/2021 12:00:00 AM [facility] ([facility], ) Laryngoscopy Direct Biopsy W/Operating Microscope 12/26/2020 12:00:00 AM [facility] ([facility] ) LARYNGOSCOPY FLEXIBLE FIBEROPTIC DIAGNOSTIC 12/15/2020 12:00:00 AM [facility] ([facility], ) OFFICE OUTPATIENT NEW 45 MINUTES 12/15/2020 12:00:00 A M [facility] ([facility] ) ECHO TTHRC R-T 2D W/WOM-MODE COMPL SPEC&COLR DOP TTE W/DOPPL ER COMPLETE 12/06/2020 12:00:[address] [facility] Injection, perflutren lipid microspheres, per ml 12/06 12:00:[address] [facility] Technetium tc-99m sestamibi, diagnostic, per study dose 11/29/2020 12:00:[address] [facility] MYOCARDIAL SPECT MULTIPLE STUDIES HT MUSCLE IMAGE SPECT MULT 11/29/2020 12:00:[address] [facility] CV STRS TST XERS&/OR RX CONT ECG TRCG ONLY CARDIOVASCULAR ST RESS TEST 11/29/2020 12:00:[address] [facility] Injection, regadenoson, 0.1 mg 11/29/2020 12:00:[address] [facility] ECG ROUTINE ECG W/LEAST 12 LDS TRCG ONLY W/O I&R ELECTROCARD IOGRAM TRACING 11/11/2020 12:00:[address] [facility] ECG ROUTINE ECG W/LEAST 12 LDS TRCG ONLY W/O I&R <td>E CG 12- LEAD</td><td>Routine</td><td>11/09/2020 12:45 PM EDT</td><td> Other intervertebral disc degeneration, lumbar region Spinal stenosis of lumbar region with neurogenic claudication</td><td></td> 11/09/2020 12:45:32 PM EDT Spinal stenosis of lumbar region with ne urogenic claudicationOther intervertebral disc degeneration, lumbar region [facility] Spinal stenosis of lumbar region with ne urogenic claudication Other intervertebral disc degeneration, lumbar region BILIRUBIN UNCONJ (INDIRECT) <td>BILIRUBIN UNCONJ (INDIRECT)</td><td>Routine</td><td>11/09/2020 12:35 PM EDT</td><td></td><td> </td> 11/09/2020 12:35:[address] [facility] THROMBOPLASTIN TIME PARTIAL PLASMA/WHOLE BLOOD <td>APTT</td><td>Routine</td><td>11/09/2020 12:35 PM EDT</td><td> Other intervertebral disc degeneration, lumbar region Spinal stenosis of lumbar region with neurogenic claudication</td><td> </td> 11/09/2020 12:35:00 PM EDT Spinal stenosis of lumbar region with ne urogenic claudicationOther intervertebral disc degeneration, lumbar region [facility] Spinal stenosis of lumbar region with ne urogenic claudication Other intervertebral disc degeneration, lumbar region PROTHROMBIN TIME <td>PROTIME-INR</td><td>Rout ine</td><td>11/09/2020 12:35 PM EDT</td><td> Other intervertebral disc degeneration, lumbar region Spinal stenosis of lumbar region with neurogenic claudication</td><td> </td> 11/09/2020 12:35:00 PM EDT Spinal stenosis of lumbar region with ne urogenic claudicationOther intervertebral disc degeneration, lumbar region [facility] Spinal stenosis of lumbar region with ne urogenic claudication Other intervertebral disc degeneration, lumbar region BLOOD COUNT COMPLETE AUTOMATED <td>CBC</td><td>Routine </td><td>11/09/2020 12:35 PM EDT</td><td> Other intervertebral disc degeneration, lumbar region Spinal stenosis of lumbar region with neurogenic claudication</td><td> </td> 11/09/2020 12:35:00 PM EDT Spinal stenosis of lumbar region with ne urogenic claudicationOther intervertebral disc degeneration, lumbar region [facility] Spinal stenosis of lumbar region with ne urogenic claudication Other intervertebral disc degeneration, lumbar region BLOOD TYPING ABO <td>TYPE AND SCREEN</td><td> Routine</td><td>11/09/2020 12:35 PM EDT</td><td> Other intervertebral disc degeneration, lumbar region Spinal stenosis of lumbar region with neurogenic claudication</td><td> </td> 11/09/2020 12:35:00 PM EDT Spinal stenosis of lumbar region with ne urogenic claudicationOther intervertebral disc degeneration, lumbar region [facility] Spinal stenosis of lumbar region with ne urogenic claudication Other intervertebral disc degeneration, lumbar region HEMOGLOBIN GLYCOSYLATED A1C <td>HEMOGLOBIN A1C</td><td>Routine</td><td>11/09/2020 12:35 PM EDT</td><td> Other intervertebral disc degeneration, lumbar region Spinal stenosis of lumbar region with neurogenic claudication</td><td> </td> 11/09/2020 12:35:00 PM EDT Spinal stenosis of lumbar region with ne urogenic claudicationOther intervertebral disc degeneration, lumbar region [facility] Spinal stenosis of lumbar region with ne urogenic claudication Other intervertebral disc degeneration, lumbar region BILIRUBIN DIRECT <td>BILIRUBIN, DIRECT</td><t d>Routine</td><td>11/09/2020 12:35 PM EDT</td><td></td><td> </td> 11/09/2020 12:35:[address] [facility] COMPREHENSIVE METABOLIC PANEL <td>COMPREHENSIVE METABO LIC PANEL</td><td>Routine</td><td>11/09/2020 12:35 PM EDT</td><td> Other intervertebral disc degeneration, lumbar region Spinal stenosis of lumbar region with neurogenic claudication</td><td> </td> 11/09/2020 12:35:00 PM EDT Spinal stenosis of lumbar region with ne urogenic claudicationOther intervertebral disc degeneration, lumbar region [facility] Spinal stenosis of lumbar region with ne urogenic claudication Other intervertebral disc degeneration, lumbar region Results ID Date Data Source [id number] 03/22/2021 07:21:00 AM EDT [facility] Name Value Range Interpretation Code Description Data Simran rce(s) Supporting Document(s) Troponin I 0.000-0.056 Normal (applies to non-numeric resu lts) [facility] ID Date Data Source [id number] 03/22/2021 01:28:00 AM EDT [facility] Imaging Services Department Imaging Report [address], [place] [address] %(RAD)RES..mtdd.print.filter("line") Name: SEBASTIAN FOFANA Leela : 1955 Age/Sex: 65M Ordering Provider: ROSI Poon Med Rec #: [id number] Reg Status: REG ER Room #: Date of Service: 03/21/21 Report Number: [id number] cc:ROSI Poon; Natanael Rosales MD Send Report To: EXAM: CTA Chest with Intravenous Contrast for PE evaluation CLINICAL HISTORY: Elevated D dimer SOB TECHNIQUE: Axial CTA images of the chest with intravenous contrast using a pulmonary embolism protocol. Multiplanar reconstructed images were created and reviewed. All CT scans at this facility use dose modulation, iterative reconstruction, and/or weight-based dosing when appropriate to reduce radiation dose to as low as reasonably achievable. CONTRAST: With; 100/370 was administered without incident. COMPARISON: None provided. FINDINGS: PULMONARY ARTERIES: No evidence of central or segmental pulmonary embolism is seen. AORTA: There is no evidence for aneurysm or dissection of the thoracic aorta. LUNGS: The lungs appear clear. PLEURAL SPACES: No pneumothorax evident. No pleural effusions. HEART: Normal heart size. No significant pericardial effusion. LYMPH NODES: No lymphadenopathy is evident. BONES: No focal osseous abnormality or acute fracture. Old rib fractures posteriorly on the left UPPER ABDOMEN: Images of the upper abdomen demonstrate a nodular contour of theliver.Impressions: 1. No pulmonary M was impaired no dissection, acute fracture or pneumothorax. 2. No consolidation or effusion. 3. Nodular liver suggest cirrhosis. Time portable performed: Fluoroscopy time in seconds: Number of Exposures: Contrast Agent in ml: Isovue 370 Method of Administration: Existing IV REPORT SIGNATURE ON FILE Reported By: Michele Choe MD 03/22/21127 Dictation Date/Time: 03/22/21127 Transcribed Date/Time: 03/22/21127 Pipeline Inspector: Name Value Range Interpretation Code Description Data Simran rce(s) Supporting Document(s) ID Date Data Source [id number] 03/21/2021 11:09:00 PM EDT [facility] Name Value Range Interpretation Code Description Data Simran rce(s) Supporting Document(s) Troponin I 0.000-0.056 Normal (applies to non-numeric resu lts) [facility] ID Date Data Source [id number] 03/21/2021 09:10:00 PM EDT [facility] Name Value Range Interpretation Code Description Data Simran rce(s) Supporting Document(s) Respiratory specimen severe acute respir atory syndrome coronavirus 2 (SARS-CoV-2) RNA Negative (qualifier value) [facility] This lab was ordered by [facility] leon and reported by . ID Date Data Source [id number] 03/21/2021 09:42:00 PM EDT [facility] Name Value Range Interpretation Code Description Data Simran rce(s) Supporting Document(s) SARS-CoV-2 RNA Negative Normal (applies to non-numeric r esults) [facility] Negative results should be treated as pr esumptive and, if inconsistent with clinical signs and symptoms or necessary for patient management, should be tested with different authorized or cleared molecular tests. Negative results do not preclude SARS-CoV-2 infection and should not be used as the sole basis for patient management decisions. Negative results should be considered in the context of a patient???s recent exposures, history and the presence of clinical signs and symptoms consistent with COVID-19. This test has not been FDA cleared or approved; this test has been authorized by FDA under an Emergency Use Authorization for use by laboratories certified under the Clinical Laboratory Improvement Amendments of 1988 (CLIA), 42 U.S.C. ???263a, to perform moderate complexity/high complexity tests and at the Point of Care (POC), i.e., in patient care settings operating under a CLIA Certificate of Waiver, Certificate of Compliance, or Certificate of Accreditation. Factsheets for healthcare providers: https://www.fda.gov/media/991119/download Factsheets for patients: https://www.fda.gov/media/089906/download The ID NOW Instrument is a rapid molecular in vitro diagnostic test utilizing an isothermal nucleic acid amplification technology intended for the qualitative detection of nucleic acid from the SARS-CoV-2 viral RNA. THIS IS A STATE REPORTABLE COMMUNICABLE DISEASE. Manual entry verified by Arabella Tan 03/21/21 2141 ID Date Data Source [id number] 03/21/2021 11:09:00 PM EDT [facility] Name Value Range Interpretation Code Description Data Simran rce(s) Supporting Document(s) D-Dimer,Quant 0.19-0.50 Above high normal [facility] The negative predictive value for DVT or PE is at 98% when the result is below the cut off value of 0.50 mg/L FEU. Increases in D-Dimer concentration observed with thromboembolic events can be variable due to localization, size, and age of thrombus. Therefore, a thromboembolic event cannot be diagnosed with certainty on the basis of the reference range. D-Dimers may also be elevated for a variety of disorders including: advanced age, , coronary disease, cancer, liver disease, infection, inflammation, hematoma, DIC, trauma, post surgery, diabetes, thrombolytic therapy, stress, and general hospitialization. D-Dimer levels may be decreased in patients on anticoagulant therapy. ID Date Data Source [id number] 03/21/2021 10:32:00 PM EDT [facility] Name Value Range Interpretation Code Description Data Simran rce(s) Supporting Document(s) PT 9.1-10.8 Above high normal [facility] ospital INR Normal (applies to non-numeric results) [facility] The use of INR is restricted to patients on stable oral anticoagulant. Therapeutic Range: 2.0 - 3.0 High Risk Range: 2.5 - 3.5 ID Date Data Source [id number] [facility] Value Range Interpretation Code Description Data Simran rce(s) Supporting Document(s) PTT 23.5-34.6 Normal (applies to non-numeric results) [facility] ID Date Data Source [id number] 03/21/2021 07:43:00 PM T [facility] Name Value Range Interpretation Code Description Data Simran rce(s) Supporting Document(s) B-Type Natriuretic Peptide BNP <125 Above high normal [facility] Results of this test should always be us ed in conjunction with the patients medical history, clinical presentation, and other findings. ID Date Data Source [id number] 03/21/2021 07:43:00 PM [facility] Name Value Range Interpretation Code Description Data Simran rce(s) Supporting Document(s) Sodium 134 mmol/L 136-145 Below low normal [facility] Potassium 3.5-5.1 Normal (applies to non-numeric resul ts) [facility] Chloride 92 mmol/L 98-107 Below low normal [facility] sp[facility] Carbon Dioxide CO2 21-32 Normal (applies to non-numer ic results) [facility] Anion Gap 5.0-16.0 Normal (applies to non-numeric resul ts) [facility] BUN 29 mg/dL 7-18 Above high normal [facility] Creatinine,Serum 0.8-1.5 Normal (applies to non-numeric results) [facility] GFR >60 Normal (applies to non-numeric results) [facility] Glucose Level 120 mg/dL 60-99 Above high normal [facility] Reference range is only applicable when patient is fasting Note the following drug interference: Sulfasalazine Sulfapyridine Can see falsely depressed Can see falsely elevated result with up to 17% results with up to 11% decrease in measurement increase in measurement Recommend patients be collected for this test prior to administration of either drug. Calcium 8.5-10.1 Normal (applies to non-numeric resul ts) [facility] Bilirubin,Total 0.1-1.9 Normal (applies to non-numeric results) [facility] SGOT(AST) 63 U/L 15-37 Above high normal [facility] Note the following drug interference: Sulfasalazine Sulfapyridine Can see falsely depressed Can see falsely elevated result with up to 10% results with up to 10% decrease in measurement increase in measurement Recommend patients be collected for this test prior to administration of either drug. SGPT(ALT) 26 U/L 12-78 Normal (applies to non-numeric resul ts) [facility] Note the following drug interference: Sulfasalazine Sulfapyridine Can see falsely depressed Can see falsely elevated result with up to 29% results with up to 10% decrease in measurement increase in measurement Recommend patients be collected for this test prior to administration of either drug. Alkaline Phosphatase 79 U/L 38-126 Normal (applies to non-num angelia results) [facility] can increase Alkaline Phosp le vels up to 2 times the normal adult value. Normal values for children and adolescents are 2 to 3 times the normal adult value. Total Protein 6.0-8.2 Normal (applies to non-numeric re sults) [facility] Albumin Level 3.4-5.0 Below low normal [facility] ID Date Data Source [id number] 03/21/2021 07:43:00 PM EDT [facility] Name Value Range Interpretation Code Description Data Simran rce(s) Supporting Document(s) Troponin I 0.000-0.056 Normal (applies to non-numeric resu lts) [facility] ID Date Data Source [id number] 03/21/2021 07:43:00 PM EDT [facility] Name Value Range Interpretation Code Description Data Simran rce(s) Supporting Document(s) Lipase 31 U/L 73-393 Below low normal [facility] spital ID Date Data Source [id number] 03/21/2021 07:20:00 PM EDT [facility] Name Value Range Interpretation Code Description Data Simran rce(s) Supporting Document(s) White Blood Count 3.5-10.5 Normal (applies to non-numeri c results) [facility] Red Blood Count 4.30-5.70 Normal (applies to non-numeric results) [facility] Hemoglobin 13.5-17.5 Normal (applies to non-numeric resul ts) [facility] Hematocrit 38.8-50.0 Normal (applies to non-numeric resul ts) [facility] Mean Corpuscular Volume 81.2-95.1 Normal (applies to non- numeric results) [facility] Mean Corpuscular Hgb 25.6-32.2 Normal (applies to non-num angelia results) [facility] Mean Corpuscular Hgb Conc 32.0-36.0 Normal (applies to no n-numeric results) [facility] Red Cell Distribution Width 11.8-15.6 Normal (appli es to non-numeric results) [facility] Platelet Count 188 x10 3/uL 150-450 Normal (applies to non-numeric results) [facility] Mean Platelet Volume 9.4-12.4 Normal (applies to non-num angelia results) [facility] Neutrophils% (Auto) 31.0-71.0 Normal (applies to non-nume max results) [facility] Lymphocytes% (Auto) 20.0-55.0 Below low normal [facility] Monocytes% (Auto) 4.0-12.0 Normal (applies to non-numeri c results) [facility] Eosinophils% (Auto) 1.0-8.0 Normal (applies to non-nume max results) [facility] Basophils% (Auto) 0.0-2.0 Normal (applies to non-numeri c results) [facility] Immature Granulocytes% (Auto) 0.0-2.0 Normal (trey lies to non-numeric results) [facility] Neutrophils# (Auto) 1.50-6.20 Normal (applies to non-nume max results) [facility] Lymphocytes# (Auto) 1.20-4.00 Normal (applies to non-nume max results) [facility] Monocytes# (Auto) 0.00-0.90 Normal (applies to non-numeri c results) [facility] Eosinophils# (Auto) 0.00-0.50 Normal (applies to non-nume max results) [facility] Basophils# (Auto) 0.00-0.20 Normal (applies to non-numeri c results) [facility] Immature Granulocytes# (Auto) 0.00-7.00 No rmal (applies to non-numeric results) [facility] ID Date Data Source [id number] 03/22/2021 05:07:00 AM EDT [facility] Department Imaging Report [address], [place] [address] %(RAD)RES..mtdd.print.filter("line") Name: SEBASTIAN FOFANA : 1955 Age/Sex: 65M Ordering Provider: Krista Earl MD Med Rec #: [id number] Reg Status: [facility] ER Room #: Date of Service: 03/21/21 Report Number: [id number] cc:Natanael Rosales MD Send Report To: [id number] XRP/XR Chest Xray Portable Reason for exam: shortness of breath FINDINGS: The lungs are well expanded with mild pulmonary vascular congestion. The cardiac silhouette is mildly enlarged. No acute osseous abnormality. IMPRESSION: Mild pulmonary vascular congestion and mild cardiomegaly. Time portable performed: 1999 Fluoroscopy time in seconds: Number of Exposures: Contrast Agent in ml: Method of Administration: REPORT SIGNATURE ON FILE Reported By: Jann Brody MD <Electronically signed by Jann Brody MD> 03/22/21 1031 Dictation Date/Time: 03/21/211944 Transcribed Date/Time: 03/22/21 0507 Pipeline Inspector: ROE Name Value Range Interpretation Code Description Data Simran rce(s) Supporting Document(s) ID Date Data Source [id number] 03/17/2021 01:38:33 PM EDT [facility] PCName: Sebastian PengB: 4Provider: Maira Modi: 03/17/2021 Reason For Tonia Fofana is here today for Lumbar spine. Patient denies any symptoms of or pending results for COVID 19 or contact with anyone with COVID 19. Patient refuses Covid vaccine as of 03/17/2021. Sebastian Fofana is an established patient here for follow up. Surgery DOS: 01/30/21. Surgery Description: L3-S1 Laminectomy. Patient states the injury occurred after a fall. 3/4 years ago. Patient is retired. History of Present IllnessFollow-up lumbar surgeryOccasional low back painPreoperative leg pain is goneNo neurological plaintsNo signs of infectionStates he is ambulating better now before surgeryWorking on increasing his endurance Results/DataXRays were ordered, obtained and interpreted today in the office. Indication: pain/dysfunction. Site: Lumbar Spine Views: 2 Views, AP/Lateral Standing Findings:. degenerative disc disease of a severe degree. Results/Reese a OtherBelow diagnostic testing were independently reviewed as well as reviewed the official corresponding reports:MRI lumbar [facility] 12/01/2019: L3-4 right synovial cyst with severe central stenosis; L4-5 severe stenosis; L5-S1 foraminal narrowingMRI lumbar SOS 09/29/2020: Comparison 12/01/2019-no significant change. L3-4 severe stenosis; L4-5 severe stenosis; L5- S1 moderate stenosis. Multilevel DDDReviewed in detail the results of the diagnostic testing. Reviewed the pertinent applicable clinical implications relating to the patient. Also provided a copy of the results for their personal records. Assessment 1. Lower back pain (724.2) (M54.5) Condition: Chronicetiology: age-related spine/joint degenerationlevels: L3-4, L4-5 and L5- S1 Plan X-Ray I Lumbosacral - 2 views (XRays were ordered, obtained and interpreted today inthe office. Indication: pain/dysfunction.); Status:Complete; Done: 17Mar2021 Perform:SOS22; Due:31Mar2021; Last Updated By:Haris Somers; 03/17/2021 1:29:05 PM;Ordered; For:Lower back pain; Ordered By:Yesi Modi; Plan, Assessment and Recommendation(s) Follow up as needed, if not improving, or getting worse. Long discussion reviewing the differ ent treatment conservative options(observation, medication(s), physical therapy, health care assistant, acupuncture, pain clinic, home exercise program, etc.)--- with pros and cons, potential risks/potential benefits of each option, as well as the chances of successes/failures of each option.At this time, they wish to proceed with:Home exercise program This document was dictated and electronically signed using [employer] Speaking software. A reasonable attempt at proof reading has been made to minimize errors. Please call with any questions. Signatures Electronically signed by : Yesi Modi M.D.; Mar 17 2021 1:38PM EST (Author) Name Value Range Interpretation Code Description Data Simran rce(s) Supporting Document(s) ID Date Data Source [id number] 02/13/2021 02:35:53 PM EDT [facility] PCName: Aubreycolby AleksandarB: 4Provider: Liang Montgomery: 02/13/2021 Reason For Koficolby Fofana is here today for Lumbar spine. Patient denies any symptoms of or pending results for COVID 19 or contact with anyone with COVID 19. Sebastian has not had the Covid vaccine. Sebastian Fofana is here for first post-op appointment. Post Op #1, L3-S1 laminectomy on 01/30/21, taking oxycodone for pain, ambulates with cane Surgery DOS: 01/30/21. Surgery Description: L3-S1 Laminectomy. Patient states the injury occurred after a fall. 3/4 years ago. Patient is retired. History of Present IllnessPatient is a 65-year-old male presents to the office for his first postop visit following lumbar surgery on 01/30/2021. Complaining of low back soreness. Denies any signs of infection. Still has radicular pain in his lower extremities with prolonged standing. He is finding the ability to walk further without needing his walker like he did preoperatively. AssessmentLow back painAftercare following musculoskeletal surgery PlanPatient is status post lumbar laminectomy/foraminotomies on 01/30/2021. I encouraged him to continue with walking and normal ADLs. Follow-up in 4 weeks. Work / School Note Sebastian Fofana is retired. DisclaimersThis document was dictated and electronically signed using [employer] Speaking software. A reasonable attempt at proof reading has been made to minimize errors. Please call with any questions. Signatures Electronically signed by : Romulo Chan; Feb 13 2021 1:06PM EST (Author) Electronically signed by : Yesi Modi M.D.; Feb 13 2021 2:35PM EST Name Value Range Interpretation Code Description Data Simran rce(s) Supporting Document(s) ID Date Data Source [id number] 02/03/2021 04:29:34 PM [facility]FORMATIONPatient MRN Name Date of Age Gend*PT [id number] Sebastian Fofana 1955 65 years M IPPT Location Admission Date/Time Visit ID Attending [id number] 01/30/21 0852 --- Yesi Modi MD([id number]) EPI ID CSN Admitting Provider [id number] Yesi Modi MD([id number]) Attestation signed by Yesi Modi MD at 02/03/2021 4:29 PMSignature: CICI Quinonezate: February 03, 2021Time: 4:29 PM --ORTHOPEDIC DISCHARGE SUMMARYPatient Name: Sebastian Fofana of : 1955 Age 65 yearsPrimary Physician: Fernando Fernandes MD PCP Rltmoqtem Date: 01/30/2021 Discharge Date: 02/03/2021dmission Provider: Yesi Modi MD Discharge Provider: Robert Clarke Diagnoses:Principal Problem: Spinal stenosis of lumbar region with neurogenic claudicationActive Problems: Sleep apnea Hypertension Hyperlipidemia GERD (gastroesophageal reflux disease) DVT (deep venous thrombosis) COPD (chronic obstructive pulmonary disease) Atrial fibrillationResolved Problems: * No resolved hospital problems. *Surgical Procedures:Procedure(s) with comments:LUMBAR 3 4 4 5 5 SACRAL 1 LAMINECTOMY FORAMINOTOMIES (N/A) - [facility] Hospital Course:Patient was admitted through ambulatory unit. Patient underwent procedurewithout any complications. Postoperatively, patient had DVT prophylaxis withMechanical means. Hospital course was uneventful. Patient had physical therapywhile in the hospital. Pain control was maintained with IV and oral painmedications initially and transitioned to only oral when tolerating pain withoutany IV medications. Once discharge criteria was met, the patient was found to bestable for discharge. Please see discharge instructions and medications forfurther details.Discharge disposition: He will be discharged from [facility] to home in stable condition.Discharge Weight Bearing Status:WBATDischarge Medications:Patient was instructed to refrain from driving or operating machinery untilcleared by surgeon.Current Discharge Medication ListCONTINUE these medications which have NOT CHANGED Detailsalbuterol (PROVENTIL HFA;VENTOLIN HFA) 108 (90 Base) MCG/ACT inhaler Inhale 2puffs every 4 (four) hours as needed for wheezingallopurinol (ZYLOPRIM) 100 MG tablet Take 100 mg by mouth dailyamLODIPine (NORVASC) 10 MG t ablet Take 10 mg by mouth dailychlorthalidone (HYGROTEN) 25 MG tablet Take 25 mg by mouth dailyenoxaparin (LOVENOX) 150 MG/ML injection Inject 130 mg under the skin every 12(twelve) hoursfolic acid (FOLVITE) 1 MG tablet Take 1 mg by mouth dailyfurosemide (LASIX) 40 MG tablet Take 40 mg by mouth dailyhydrOXYzine (ATARAX) 50 MG tablet Take 50 mg by mouth nightly as needed (Forinsomnia)metoprolol tartrate (LOPRESSOR) 25 MG tablet Take 25 mg by mouth 3 (three) timesa daynitroglycerin (NITROSTAT) 0.[address] 0.4 mg under the tongue every 5(five) minutes as needed for chest painoxyCODONE-acetaminophen (PERCOCET) 10-325 MG per tablet Take 1 tablet by mouthevery 4 (four) hours as needed for pain MDD 8 tabletspotassium chloride SA (K-DUR,KLOR-CON) 10 MEQ tablet Take 10 mEq by mouth dailyrivaroxaban (Xarelto) 15 MG TABS Take 1 tablet by mouth dailyspironolactone (ALDACTONE) 25 MG tablet Take 25 mg by mouth dailyzolpidem (AMBIEN) 10 MG tablet Take 10 mg by mouth nightly as needed for sleepSTOP taking these medications mupirocin (BACTROBAN) 2 % ointmentFollow Up Instructions:An After Visit Summary was printed and given to the patient.Items needing special attention: noneDischarge Exam:Blood Pressure: BP: 110/83 Pulse: Heart Rate: 103Temperature: Temp: 99 F Respirations: Resp: 16Admission Weight: Weight: (!) 137 kg (302 lb) O2 Saturation: SpO2: 95 %Discharge Weight: Weight: (!) 137 kg (302 lb) BMI: Body mass index is 45.93kg/m .Physical ExamGeneral: A/O x 3, NAD.Respiratory: Breathing unlaboredOrthopedic: lumbar spine exam: Dressing clean, dry and intact. Sensation intactbilaterally. Strength intact bilaterally, 5/5 DF/PF bilaterally.Diagnostics:Lab ResultsComponent Value Date WBC 7.1 01/31/2021 HGB 12.1 (L) 01/31/2021 HCT 35.6 (L) 02/02/2021 MCV 98.0 (H) 01/31/2021 PLT 120 (L) 01/31/2021ab ResultsComponent Value Date INR 1.14 01/25/2021 PROTIME 11.8 01/25/2021ab ResultsComponent Value Date CREATININE 1.54 (H) 01/31/2021 BUN 29 (H) 01/31/2021 NA 133 (L) 01/31/2021 K 4.8 01/31/2021 CL 93 (L) 01/31/2021 CO2 33 (H) 01/31/2021 GLU 140 (H) 01/31/2021ignificant Imaging:noneConsults:noneSignature: [phone]: February 03, 2021Time: 8:31 AM Name Value Range Interpretation Code Description Data Simran rce(s) Supporting Document(s) ID Date Data Source [id number] 02/03/2021 02:19:59 PM EDT [facility] [place] phillip JULIAN Name Value Range Interpretation Code Description Data Simran rce(s) Supporting Document(s) PHOSPHORUS 3.7 mg/dL (2.5-4.5) [facility] [place] IESHA ID Date Data Source [id number] 02/03/2021 02:19:59 PM EDT [facility] [place] [facility] Name Value Range Interpretation Code Description Data Simran rce(s) Supporting Document(s) MAGNESIUM 1.8 mg/dL (1.7-2.4) [facility] [place] [facility] ID Date Data Source [id number] 02/02/2021 08:18:04 AM EDT [facility] [place] [facility] JULIAN Name Value Range Interpretation Code Description Data Simran rce(s) Supporting Document(s) HCT 35.6 % (41.0-53.0) L [facility] [place] [facility] ID Date Data Source [id number] 02/01/2021 05:02:40 PM EDT [facility] [place] [facility] Name Value Range Interpretation Code Description Data Simran rce(s) Supporting Document(s) COLOR [facility] [place] [facility] APPEARANCE [facility] [place] [facility] SPEC GRAV URINE 1.013 (1.003-1.030) [facility] PH URINE 5.5 (5.0-7.5) [facility] [place] [facility] LEUK ESTERASE (NEG) [facility] [place] [facility] NITRITE URINE (NEG) [facility] [place] [facility] PROTEIN URINE (NEG) [facility] [place] [facility] GLUCOSE URINE (NEG) [facility] [place] [facility] KETONE URINE (NEG) [facility] [place] [facility] [place] UROBILINOGEN 0.2 mg/dL (0-1.0) [facility] [place] [facility] [place] BILIRUBIN URINE (NEG) [facility] [place] [facility] BLOOD/HGB URINE (NEG) [facility] [place] [facility] EPITHELIAL CELLS (NEG) [facility] [place] [facility] HYALINE CASTS 1.2 [LPF] (0-5) [facility] [place] [facility] BACTERIA (NEG) [facility] [place] [facility] URINE WBC 1.3 [HPF] (0-8) [facility] [place] [facility] URINE RBC 0.5 [HPF] (0-3) [facility] [place] [facility] ID Date Data Source [id number] 02/01/2021 06:00:53 AM EDT [facility] [place] [facility] Name Value Range Interpretation Code Description Data Simran rce(s) Supporting Document(s) HCT 36.3 % (41.0-53.0) L [facility] [place] [facility] ID Date Data Source [id number] 01/31/2021 05:58:15 AM EDT [facility] [place] [facility] Name Value Range Interpretation Code Description Data Simran rce(s) Supporting Document(s) SODIUM 133 mmol/L (136-145) L [facility] [place] [facility] POTASSIUM 4.8 mmol/L (3.6-5.2) [facility] [place] [facility] CHLORIDE 93 mmol/L (100-108) L [facility] [place] [facility] CO2 33 mmol/L (22-31) H [facility] [place] [facility] ANION GAP 7 mmol/L (7-16) [facility] [place] [facility] UREA NITROGEN 29 mg/dL (7-24) H [facility] CREATININE 1.54 mg/dL (0.80-1.30) [facility] BUN/CREAT RATIO 18.8 RATIO (10.0-20.0) [facility] GLUCOSE 140 mg/dL (70-99) [facility] CALCIUM 7.9 mg/dL (8.4-10.2) L [facility] GFR 45 ml/min/1.73m2 (>59) L [facility] GFR ( AMER) 55 ml/min/1.73m2 (>59) L [facility] GFR INTERPRETATION [facility] --NORMAL KIDNEY FUNCTION OR MILD DISEASE - GFR >OR= 60CHRONIC KIDNEY DISEASE - GFR 15 - 59RENAL FAILURE - GFR <15 Est. GFR calculation based on the MDRDstudy equation, which assumes a steadystate for creatinine. Est. GFR should notbe used for medication dosing. ID Date Data Source [id number] 01/31/2021 05:25:46 AM EDT [facility] Name Value Range Interpretation Code Description Data Simran rce(s) Supporting Document(s) WBC 7.1 10*3/uL (4.1-11.0) [facility] RBC 3.68 10*6/uL (4.60-6.10) L [facility] HGB 12.1 g/dL (13.5-18.0) [facility] HCT 36.0 % (41.0-53.0) [facility] PERFORMED AT [address] [place] [address] [address] [place] [address] MCV 98.0 fL (80.0-95.0) [facility] MCH 33.0 pg (27.0-32.0) [facility] MCHC 33.7 g/dL (32.0-36.0) [facility] RDW 14.6 % (10.5-14.5) [facility] PLT 120 10*3/uL (150-450) [facility] MPV 9.1 fL (7.1-10.7) [facility] ID Date Data Source [id number] 01/30/2021 03:17:02 PM EDT [address] [id number] Name: SEBASTIAN PENGB: 1955Sex: MOrdering Provider: YESI MODIAuthorizing Prov: YESI MODIReferrjuve Provider: Procedure Performed: / XR OR SPINE LUMBAR CONTINUATIONExam Date: 01/30/2021 15:13MRN: [id number] Number: [id number] Class: InpatientAccount #: [id number] for Exam: Degenerative lumbar disc [M51.36]Spinal stenosis of lumbar region with neurogenic claudication [M48.062]Technique: Lateral view obtained.Comparison: NoneFindings: Spine labeling performed from L1-S1. Superior localizer tip posterior to L3-L4 disc space and inferior localizer tip posterior to L5-S1 disc space.IMPRESSION: Intraoperative localization.Report electronically signed by: Alexander Quiñones On 01/30/2021 3:17 PMWorkstation ID: [id number] Name Value Range Interpretation Code Description Data Simran rce(s) Supporting Document(s) ID Date Data Source [id number] 01/30/2021 02:40:45 PM EDT [facility] NT INFORMATIONPatient MRN Name Date of Age Gend*PT [id number] Sebastian Fofana 1955 65 years M SDCXPT Location Admission Date/Time [facility] --- Yesi Modi MD([id number]) EPI ID CSN Admitting Provider [id number] Yesi Modi MD([id number])Operative ReportPatient Name: Sebastian Fofana of : 1955 Age 65 yearsPrimary Physician: Fernando Fernandes MD PCP Hjst of Surgery: 1Diagnostic InformationPre- Op Diagnosis: Lumbar yeisfbsf-plbgsscirtmvrwDuup-Ct Diagnosis: SameProcedure(s) Procedure(s) with comments:LUMBAR 3 4 4 5 5 SACRAL 1 LAMINECTOMY FORAMINOTOMIES (N/A) - MEDTRONICSurgical StaffSurgeon: VERN Quinonezurgical Staff: OR Capital Project Engineer: Gonzalo Garcia, RN; So Gutierrez, JOSE ANTONIOurgical Assist: ROSI YingOR Relief Capital Project Engineer: Lyndsey Rogers RNOR Relief Scrub: Gaurav Crowe Scrub Person: Citlalli Gómez; Alexander Wilson Child Care Supervisor is a Physician's Cvt Rn (ROSI), the Orthopedic Resident wasnot availableAnesthesiaAnesthesia Staff: Anesthesiologist: FORTINO BuitragoRNA: Vlad Mrash CRNAAnesthesia: *Anesthesia ServicesOperative DescriptionProcedure:1. L3 and L4 and L5 and S1 laminectomies with partial facetectomies andbilateral foraminotomies with decompression of the cauda equina in the midlineat each level as well as decompression of bilateral L3, L4, L5 and S1 nerveroots.Anesthesia: GeneralEBL 200 ccFluid: CrystalloidComplications: NoneDrains: HemovacIndications: Patient is a 65 years Male with back pain and leg pain.Evaluation including x-rays and MRI did show multilevel lumbar stenosis.Options were reviewed with risks and benefits with the choice of operativeintervention-no guarantees given. Again did review what the surgery wouldinvolve including risks and benefits as well as the chances of successes andfailures and potential complications with no guarantees given.Operative findings: Severe multilevel lumbar stenosis noted. Also of note, asmall spike of bone causing incidental durotomy that was repaired primarily forwatertight closure.Antibiotics: Intravenous Kefzol was given within one hour of incision time andordered to be stopped within 24 hours of surgery.Procedure:Patient operating room and received antibiotics as above. General anesthesia.Godinez catheter was placed. Then rolled onto the Deion table in the proneposition on the Rah frame. All pressure points checked and padded. Nextpatient back was prepped and draped in usual fashion using ChloraPrep system.Please note throughout the procedure, 3.5 loupe magnification was used.Physician senior office assistant needed to assist in a safe transfer the patient from thesupine position on the stretcher to the prone position on the operating roomtable/frame. Next use skin knife, midline incision from L3 to S1. Carried deeply until thefascia was encounter. Fascia incised on each side using electrocautery andcarried down to the level of lamina. Intra operative x-rays obtained forlocalization. Next Leksell, inferior 1/2 spinous process of L3, all of L4, allthe L5 and the superior 1/2 of S1 was removed. Next using the Kerrison rongeurs,a nice wide midline laminectomy performed by removing the inferior 1/2 lamina ofL3, all of L4, of L5 and the superior half of S1. This decompressed the caudaequina in the midline nicely each level. Physician senior office assistant needed for softtissue retraction, suctioning for visualization and for protection of theneuralelements during this part of the procedure.Again using the Kerrison rongeurs, lateral recesses were decompressed byperforming partial facetectomies and bilateral foraminotomies decompress thebilateral L3, L4, L5 and S1 nerve roots. Physician senior office assistant needed for softtissue retraction, suctioning for visualization and for protection of the neuralelements during this part of the procedure as well.Of note-a small spike of bone causing incidental durotomy was repaired primarilywith watertight closure using 5-0 Prolene in a qonzgd-en-uthnk fashion.Valsalva 5 count revealed no CSF egressWound wascopiously irrigated. Wound was hemostatic. Deep drain inserted.Fascia closed using #1 Vicryl suture. Subcutaneous tissues injected 30 cc of0.5% marcaine with epinephrine. Skin closed using 2 0 Vicryl for subcu and 3-0Monocryl for skin with application Steri-Strips and sterile dressing.Patient rolled onto stretcher, extubated, moving all 4 extremities and broughtto recovery room stable condition. Physician senior office assistant needed to assist in thesafe transfer the patient from the prone position on the operating table/frameto the supine position on the patient's stretcher.Operative InformationSpecimen(s): @ORSPECMN@Grafts/Implants: * No implants in log *All tasks completed under the direction of the primary surgeonYesi Modi MD Name Value Range Interpretation Code Description Data Simran rce(s) Supporting Document(s) ID Date Data Source [id number] 01/30/2021 12:04:43 PM EDT [address] [address]Gakxlmv Name: SEBASTIAN PENGB: 1955Sex: MOrdering Provider: YESI MODIAuthorizing Prov: YESI MODIReferrjuve Provider: Procedure Performed: / XR OR SPINE LUMBARExam Date: 01/30/2021 11:57MRN: [id number] Number: [id number] Class: InpatientAccount #: [id number] for Exam: Degenerative lumbar disc [M51.36]Spinal stenosis of lumbar region with neurogenic claudication [M48.062]Technique: Lateral view obtained.Comparison: NoneFindings: Localizing needles at the levels of L2-3 and L5-S1.IMPRESSION: Loc alizing needles at L2-3 and L5-S1.Report electronically signed by: HUEY TAYLOR On 01/30/2021 12:04 PMWorkstation ID: [id number] Name Value Range Interpretation Code Description Data [facility] rce(s) Supporting Document(s) ID Date Data Source [id number] 01/30/2021 11:42:01 AM EDT [facility] NT INFORMATIONPatient MRN Name Date of Age Gend*PT [id number] Sebastian Fofana 1955 65 years M SDCXPT Location Admission Date/Time Visit ID Attending Provider --- --- --- --- EPI ID CSN Admitting Provider [id number] ---AirwayPatient location during procedure: ORUrgency: electiveDifficult airway: noAdvanced airway equipment used: noStaffingPerformed by: Vlad Marsh CRNAAnesthesiologist: Naseem Medrano MDIndications and Patient ConditionIndications for airway management: anesthesiaPreoxygenated: yesPatient position: sniffingIn-line stabilization: noMask ventilation: 1 - vent by maskFinal Airway/ApproachesFinal airway type: ETTNumber of attempts at final approach: 1Number of other approaches attempted: 0Final Airway DetailsFinal ETT airway: ETT - singleCuffed: yesTechnique used for successful ETT placement: direct laryngoscopyCricoid pressure: yesRSI: noInsertion site: oralBlade type/size: MAC 3.5ETT size: 7.5 mmMeasured from: lipsETT to lips: 23 cmPlacement verified by: + [id number] view: grade IIa - partial view of glottis Name Value Range Interpretation Code Description Data Simran rce(s) Supporting Document(s) ID Date Data Source [id number] 01/30/2021 11:05:20 AM EDT [facility] NT INFORMATIONPatient MRN Name Date of Age Gend*PT [id number] Sebastian Fofana 1955 65 years M SDCXPT Location Admission Date/Time Visit ID [facility] 0852 --- Yesi Modi MD([id number]) EPI ID CSN Admitting Provider [id number] Yesi Modi MD([id number])Pre- op note/discusson/H&P review:Long discussion today.Options were reviewedProcedure was reviewedRisks/potential complications were reviewedSebastian Fofana wishes to proceed with surgeryNo guarantees givenPlease refer to the patient's H&P completed within 30 days prior to admissionfor details.I have reviewed the patient's H&P and there are no significant changes in thepatient's history nor physical exam.--Yesi Modi MD Name Value Range Interpretation Code Description Data Simran rce(s) Supporting Document(s) ID Date Data Source [id number] 01/25/2021 02:13:16 PM EDT [facility] NT INFORMATIONPatient MRN Name Date of Age Gend*PT [id number] Sebastian Fofana 1955 65 years M OPPT Location Admission Date/Time Visit ID Attending Provider --- --- --- Yesi Modi MD([id number]) EPI ID CSN Admitting Provider [id number] Yesi Modi MD([id number])OUTPATIENT / OBSERVATIONAL SURGICAL OR INVASIVE PROCEDUREName: Sebastian Fofana : 1955 Sex: male Care Provider: Fernando Fernandes MDAttending Physician: Dr. Modi.HISTORY OF PRESENT ILLNESS: 65 years old white male with a 5+ year history oflow back pain. Pain has been progressive and most severe over the last 3 years.He is getting pain from the low back that radiates to bilateral legs. Symptomsare aggravated with standing. He denies any numbness, tingling, or falls.Patient met with Dr. Modi, options were discussed, and he has now electedto undergo surgical intervention.Patient was previously scheduled for this procedure in November but was postponed dueto request for cardiac or stratification.PAST MEDICAL HISTORY:Past Medical History:Diagnosis Date Atrial fibrillation Cardiac murmur Chest pain Abnormal EKG on 11/09/2020; will require cardiac clearance prior to surgery;apparently he has been noncompliant with cardiac appointments Cirrhosis Remote history; states he has cut down on his drinking COPD (chronic obstructive pulmonary disease) Has seen Dr. Marr in the [facility] in the past. Has not seen him recently Degenerative lumbar disc DVT (deep venous thrombosis) 2014 Right lower extremity; was anticoagulated Early cataract left GERD (gastroesophageal reflux disease) Gout Hyperlipidemia Hypertension Lesion of vocal cord Loosening of tooth Tooth #4 lower; advised to address prior to surgery Renal calculi Sleep apnea does not use CPAP Spinal stenosis of lumbar region with neurogenic claudication TIA (transient ischemic attack) remotePAST SURGICAL HISTORY:Past Surgical History:Procedure Laterality Date CATARACT EXTRACTION W/ INTRAOCULAR LENS IMPLANT Right KNEE ARTHROSCOPY Bilateral X3 each side TOTAL HIP ARTHROPLASTY Bilateral VOCAL CORD LESIONALLERGIES:AllergiesAllergen Reactions Motrin [Ibuprofen] Other (See Comments) Patient stated it rips up his stomachMEDICATIONS:Prior to Admission medicationsMedication Sig Start Date End Date Taking? Authorizing Provideralbuterol (PROVENTIL HFA;VENTOLIN HFA) 108 (90 Base) MCG/ACT inhaler Inhale 2puffs every 4 (four) hours as needed for wheezing Historical Provider, MDallopurinol (ZYLOPRIM) 100 MG tablet Take 100 mg by mouth daily HistoricalProvider, MDamLODIPine (NORVASC) 10 MG tablet Take 10 mg by mouth daily HistoricalProvider, Fortinohlorthalidone (HYGROTEN) 25 MG tablet Take 25 mg by mouth daily HistoricalProvider, enoxaparin (LOVENOX) 150 MG/ML injection Inject 130 mg under the skin every 12(twelve) hours Historical Provider, folic acid (FOLVITE) 1 MG tablet Take 1 mg by mouth daily HistoricalProvider, furosemide (LASIX) 40 MG tablet Take 40 mg by mouth daily HistoricalProvider, hydrOXYzine (ATARAX) 50 MG tablet Take 50 mg by mouth nightly as needed (Forinsomnia) Historical Provider, Ewaetoprolol tartrate (LOPRESSOR) 25 MG tablet Take 25 mg by mouth 3 (three) timesa day Historical Provider, nitroglycerin (NITROSTAT) 0.[address] 0.4 mg under the tongue every 5(five) minutes as needed for chest pain Historical Provider, oxyCODONE-acetaminophen (PERCOCET) 10-325 MG per tablet Take 1 tablet by mouthevery 4 (four) hours as needed for pain MDD 8 tablets Historical Provider, Catalinootassium chloride SA (K-DUR,KLOR-CON) 10 MEQ tablet Take 10 mEq by mouth dailyHistorical Provider, Vernpironolactone (ALDACTONE) 25 MG tablet Take 25 mg by mouth daily HistoricalProvider, zolpidem (AMBIEN) 10 MG tablet Take 10 mg by mouth nightly as needed for sleepHistorical Provider, CICIaily Gabriel (THERAGRAN) per tablet Take 1 tablet by mouth daily 01/25/21Historical Provider, MDpantoprazole (PROTONIX) 40 MG tablet Take 40 mg by mouth daily 01/25/21Historical Provider, MDspironolactone (ALDACTONE) 25 MG tablet Take 25 mg by mouth daily 01/25/21Historical Provider, Vernucralfate (CARAFATE) 1 g tablet Take 1 g by mouth 4 (four) times a day 01/25/21Historical Provider, Reyna HistoryTobacco Use Smoking status: Current Every Day Smoker Packs/day: 1.00 Years: 39.00 Pack years: 39.00 Types: Cigarettes Smokeless tobacco: Never UsedVaping Use Vaping Use: Never usedSubstance Use Topics Alcohol use: Yes Comment: 1 pint per week Drug use: Yes Types: Marijuana Comment: 0-1/monthFamily HistoryProblem Relation Age of Onset Dementia Mother Stroke Father Malig Hyperthermia Neg HxREVIEW OF SYSTEMS:Respiratory: Reports dyspnea on exertion and shortness of breath at rest.Reports chronic productive cough- phlegm, color unknown.Cardiovascular: Denies any chest pain, pressure or tightness. Denies anyparoxysmal nocturnal dyspnea or orthopnea.GI: Denies nausea, vomiting, diarrhea, constipation or melena.Musculoskeletal: Reports pain to the low back and bilateral legs as above. Usesa cane or walker for ambulation.Neurologic: Denies any numbness, tingling, tremors or syncope.Vascular: Denies any edema. Denies claudication.PHYSICAL EXAM:GENERAL: He is a 65 years old, pleasant white male, in no acute distress at timeof examination. Vitals on arrival to the office are BP 121/56 (BP Location: Leftupper arm, Patient Position: Sitting) | Pulse 59 | Ht 1.727 m (5' 8") | Wt(!) 137 kg (302 lb) | SpO2 93% | BMI 45.92 kg/m Body mass index is 45.92kg/m ..Skin is pink, warm, and dry.NECK: He has a grade 3 airway. Neck is supple, midline, without cervicaladenopathy. No thyromegaly. No carotid bruits.MENTAL / NEUROLOGICAL STATUS: [id number]: Clear to auscultation. No wheezes, rhonchi or crackles.HEART: Rate rhythm regular. S1, S2. No murmur, rub or gallop.ABDOMEN: Bowel sounds positive times four. Soft, non tender. No reboundtenderness. No hepatosplenomegaly. Negative CVAT.EXTREMITIES: Pulses are symmetrical. No edema.OPERATIVE SITE: Denies rash or lesion.Anesthesia complications: Denies degenerative lumbar disc; spinal stenosis oflumbar region with neurogenic claudicationCSHA Frailty Scale :: 5/10 Mildly Frail (more evident slowing and need help inhigh order IADLs (finances, transportation, heavy housework, medications).Typically, mild frailty progressively impairs shopping and walking outsidealone, meal preparation and housework).Stop Bang Questionnaire - Total Score:ASSESSMENT: Primary Diagnosis/Indication: Degenerative lumbar disc; spinalstenosis of lumbar region with neurogenic claudication.PLAN: Procedure: Lumbar 12313 sacral 1 laminectomy foraminotomies.Patient was previously scheduled to postpone for above surgery. He has sincebeen seen by cardiology for restratification. Will need office visit notes andany testing completed.01/25/2021 11:46 Adelita [place] document or parts of this document, were dictated using [employer] software. A reasonable attempt at proofreading has beenmade to minimize errors. Please call with any questions or corrections.* Name Value Range Interpretation Code Description Data Simran rce(s) Supporting Document(s) ID Date Data Source [id number] 01/25/2021 12:09:31 PM EDT [facility], PCName: Sebastian PengB: 4Provider: Juan YesiS: 01/25/2021 Reason For Tonia Fofana is here today for Lumbar spine. Sebastian has not had the Covid vaccine. Sebastian Fofana is an established patient here for follow up and Sebastian Fofana is here for a history and physical. Surgery Description: L3-S1 Laminectomy. Expected DOS: 01/30/2021. Patient states the injury occurred after a fall. 3/4 years ago. Patient is retired. History of Present IllnessAgain no new significant clinical changes compared to last office visitStates he stopped his Xarelto and now taking LovenoxStates instructed per cardiology last dose of Lovenox 01/28/2021 PM for surgery 01/30/2021lso had his vocal cord surgeryMore surgery planned after his lower back surgeryChronic low back painEpisodic bilateral lower extremity painPhysical therapy 2019Also saw pain management in [facility] and [place]--injections not helpfulAlso saw neurosurgery in [place], Dr. Akhtar The patient complains of pain in the lumbar spine . The pain radiates to both, buttock(s), thigh(s) and leg(s) . Right worse than left The patient denies signs of bladder dysfunction, bowel dysfunction, cancer/metastasis, infection and myelopathy . The pain is achy . The pain severity is rated 8 out of 10. Pain is aggravated by standing and walking . There is no numbness or weakness. Results/Data OtherBelow diagnostic testing were independently reviewed as well as reviewed the official corresponding reports:MRI lumbar [facility] 12/01/2019: L3-4 right synovial cyst with severe central stenosis; L4-5 severe stenosis; L5-S1 foraminal narrowingMRI lumbar SOS 09/29/2020: Comparison 12/01/2019-no significant change. L3-4 severe stenosis; L4-5 severe stenosis; L5- S1 moderate stenosis. Multilevel DDDReviewed in detail the results of the diagnostic testing. Reviewed the pertinent applicable clinical implications relating to the patient. Also provided a copy of the results for their personal records. Assessment 1. Degenerative lumbar disc (722.52) (M51.36) 2. Spinal stenosis of lumbar region with neurogenic claudication (724.03) (M48.062) 3. Synovial cyst (727.40) (M71.30) Condition: Chronicetiology: age-related spine/joint degenerationlevels: L3-4, L4-5 and L5-S1 PlanAgain--long discussion reviewing the different treatment conservative options(observation, medication(s), physical therapy, health care assistant, acupuncture, pain clinic, home exercise program, another Orthopedic/spine opinion, additional testing, etc.)--- with pros and cons, potential risks/potential benefits of each option, as well as the chances of successes/failures of each option.Also discussed the option of surgery with pros and cons, risks and benefits as well as the risks of not having surgery. Also discussed the option of getting a second surgical opinion, if desired.Again at this time, they wish to proceed with:Surgery-lumbar laminectomyPlan L3-S1 laminectomy/foraminotomies This document was dictated and electronically signed using [employer] software. A reasonable attempt at proof reading has been made to minimize errors. Please call with any questions. Signatures Electronically signed by : Yesi Modi M.D.; Jan 25 2021 12:09PM EST (Author) Name Value Range Interpretation Code Description Data Simran rce(s) Supporting Document(s) ID Date Data Source [id number] 01/25/2021 07:52:06 PM EDT [facility] [place] [facility] SPEC EXP DATE 1PATI ENT ABO/Rh A POSITIVEANTIBODY SCREEN NEGATIVETESTING SITE PERFORMED AT [address] [place] [id number] COMMENT BLOOD TYPE CONFIRMED. Name Value Range Interpretation Code Description Data Simran rce(s) Supporting Document(s) TYPE AND SCREEN [facility] [place] [facility] ID Date Data Source [id number] 01/25/2021 05:59:55 PM EDT [facility] [place] [place] [facility] Name Value Range Interpretation Code Description Data Simran rce(s) Supporting Document(s) SODIUM 131 mmol/L (136-145) L [facility] [place] [place] [facility] POTASSIUM 3.6 mmol/L (3.6-5.2) [facility] [place] [place] [facility] CHLORIDE 91 mmol/L (100-108) L [facility] [place] [place] [facility] CO2 33 mmol/L (22-31) H [facility] [place] [place] [facility] ANION GAP 7 mmol/L (7-16) [facility] [place] [place] [facility] UREA NITROGEN 39 mg/dL (7-24) H [facility] [place] [place] [facility] CREATININE 1.73 mg/dL (0.80-1.30) H [facility] [place] [place] [facility] BUN/CREAT RATIO 22.5 RATIO (10.0-20.0) [facility] GLUCOSE 114 mg/dL (70-99) H [facility] [place] [place] [facility] CALCIUM 9.1 mg/dL (8.4-10.2) [facility] [place] [facility] TOTAL PROTEIN 7.2 g/dL (6.4-8.2) [facility] [place] [facility] ALBUMIN 3.7 g/dL (3.2-4.5) [facility] [place] [facility] GLOBULIN 3.5 g/dL (2.7-4.3) [facility] [place] [facility] ALB/GLOB RATIO 1.1 RATIO [facility] [place] [place] [facility] ALKALINE PHOSPHATASE 52 U/L (45-117) [facility] BILIRUBIN,TOTAL 0.5 mg/dL (0.0-1.0) [facility] [place] [facility] PLEASE NOTE:Total bilirubin results may be falselyelevated in patients taking Eltrombopag. AST (SGOT) 35 U/L (11-39) [facility] [place] [place] [facility] ALT (SGPT) 17 U/L (12-78) [facility] GFR 40 ml/min/1.73m2 (>59) L [facility] [place] GFR ( AMER) 48 ml/min/1.73m2 (>59) L [facility] GFR INTERPRETATION [facility] --NORMAL KIDNEY FUNCTION OR MILD DISEASE - GFR >OR= 60CHRONIC KIDNEY DISEASE - GFR 15 - 59RENAL FAILURE - GFR <15 Est. GFR calculation based on the MDRDstudy equation, which assumes a steadystate for creatinine. Est. GFR should notbe used for medication dosing. ID Date Data Source [id number] 01/25/2021 05:47:52 PM EDT [facility] Name Value Range Interpretation Code Description Data Simran rce(s) Supporting Document(s) APTT 32.5 s (22.0-34.3) Lab [facility] ID Date Data Source [id number] 01/25/2021 05:47:52 PM EDT [facility] [place] [facility] JULIAN Name Value Range Interpretation Code Description Data Simran rce(s) Supporting Document(s) PT 11.8 s (9.2-11.9) [facility] INR 1.14 [facility] SUGGESTED THERAPEUTIC RANGES USING INR F ORSTABILIZED ANTICOAGULATED PATIENTS:STANDARD DOSE THERAPY INR 2.0-3.0 DVT, PE, PREVENT DVT OR EMBOLISMHIGH DOSE THERAPY INR 2.5-3.5 PREVENT EMBOLISM FROM MECHANICAL HEART VALVE ID Date Data Source [id number] 01/25/2021 05:24:31 PM EDT [facility] Name Value Range Interpretation Code Description Data Simran rce(s) Supporting Document(s) HEMOGLOBIN A1C @ 5.8 % (4.0-6.0) [facility] Performed using Siemens Sher[place] immunoassa y.Care must be taken when interpreting BbM5uolocaxd in patients with a hemoglobin variantor decreased erythrocyte lifespan. Values 5.7 - 6.4% suggest prediabetes.Values >=6.5% are diagnostic for diabetes.REFERENCE: DIABETES CARE 2018: 41(S13-S27). EST AVERAGE GLUCOSE 120 mg/dL [facility] ID Date Data Source [id number] 01/25/2021 05:06:17 PM EDT [facility] [place] [facility] Name Value Range Interpretation Code Description Data Simran rce(s) Supporting Document(s) WBC 9.7 10*3/uL (4.1-11.0) [facility] [place] [facility] [place] RBC 4.26 10*6/uL (4.60-6.10) L [facility] [place] [facility] HGB 14.0 g/dL (13.5-18.0) [facility] [place] [facility] HCT 41.9 % (41.0-53.0) [facility] [place] [facility] MCV 98.5 fL (80.0-95.0) H [facility] [place] [facility] MCH 32.8 pg (27.0-32.0) H [facility] [place] [facility] MCHC 33.3 g/dL (32.0-36.0) [facility] [place] [facility] RDW 14.6 % (10.5-14.5) H [facility] [place] [facility] [place] PLT 186 10*3/uL (150-450) [facility] [place] [facility] MPV 10.2 fL (7.1-10.7) [facility] [place] [facility] [place] ID Date Data Source [id number] 01/30/2021 12:00:13 PM EDT [facility] [place] [facility] J[facility] Name Value Range Interpretation Code Description Data Simran rce(s) Supporting Document(s) SARS-COV-2 ROBERT [facility] [place] [facility] J[facility]IAN Not DetectedReference range: Not Detecte d This nucleic acid amplification test was developed and its performance characteristics determined by [employer]. Nucleic acid amplification tests include RT-PCR and TMA. This test has not been FDA cleared or approved. This test has been authorized by FDA under an Emergency Use Authorization (EUA). This test is only authorized for the duration of time the declaration that circumstances exist justifying the authorization of the emergency use of in vitro diagnostic tests for detection of SARS-CoV-2 virus and/or diagnosis of COVID-19 infection under section 564(b)(1) of the Act, 21 U.S.C. 360bbb-3(b) (1), unless the authorization is terminated or revoked sooner. When diagnostic testing is negative, the possibility of a false negative result should be considered in the context of a patient's recent exposures and the presence of clinical signs and symptoms consistent with COVID- 19. An individual without symptoms of COVID- 19 and who is not shedding S ARS-CoV-2 virus would expect to have a negative (not detected) result in this assay. Performed At: [employer] [place], [place] [id number] Yamile Mary Lou PhD Ph:[phone] ID Date Data Source [id number] 01/23/2021 09:13:00 AM EDT [facility] Name Value Range Interpretation Code Description Data Simran rce(s) Supporting Document(s) SARS coronavirus 2 RNA Not Detected [facility] This lab was ordered by [facility] [place] [facility] and reported by [facility]. 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 12/27/2020 - 1016 CLINICAL DIAGNOSIS Left laryngeal lesion 12/26/2020 - 1538 GROSS DIAGNOSIS Received in formalin labeled "left laryngeal biopsy" and consists of multiple fragments of tissue, 2 x 2 x 0.2 cm in aggregate. All in one. -OA 12/26/2020 - 153 Signed MATHEW SHIELDS MD 12/27/2020 1018 ID Date Data Source [id number] 12/21/2020 12:00:00 PM EDT [facility] Name Value Range Interpretation Code Description Data Simran rce(s) Supporting Document(s) SARS-CoV-2 (COVID-19) RNA [Presence] in Respiratory specimen by ROBERT with probe detection Not Detected [facility] This lab was ordered by [facility] and reported by [employer]. ID Date Data Source [id number] 12/12/2020 07:47:00 AM EDT [facility] Name: SEBASTIAN FOFANA : 1955 Age/Sex: 65M Ordering Provider: Max Saab MD Med Rec #: [id number] Reg Status: DEP REF Room #: Date of Service: 12/06/20 Report Number: [id number] cc:Natanael Rosales MD; Max Saab MD Send Report To: NMSPECT No Charge [id number] SPECT/NMSPECT No Charge Reason for exam: ATRIAL FIBRILLATION BY ELECTROCARDIOGRAM, CHEST PAIN UNSPECIFIED TYPE FINDINGS: Please see dictated report dated 11/29/2020 @ [address] Khoa Gómez. Fluoroscopy time in seconds: CT Dose in mSv: Contrast Agent in ml: Method of Administration: Intraveneous REPORT SIGNATURE ON FILE Reported By: Khoa Gómez MD 12/12/20 0748 Dictation Date/Time: 11/29/201410 Transcribed Date/Time: 12/12/20746 Pipeline Inspector: AGNES Name Value Range Interpretation Code Description Data Simran rce(s) Supporting Document(s) ID Date Data Source [id number] 12/06/2020 11:37:00 AM EDT [facility] Name: SEBASTIAN FOFANA : 1955 A ge/Sex: 65M Ordering Provider: Max Saab MD Med Rec #: [id number] Reg Status:REG REF Room #: Date of Service: 12/06/20 Report Number: [id number] cc: Max Saab MD; Natanael Rosales MD Send Report To: Echocardiogram Complete Ordering Phys: MAMTA, Accession Number: [id number] Exam Date: 12/06/2020 11:54 Indications: AFIB CHEST PAIN BP 172 / 80 Rhythm: Atrial fibrillation Technical Quality: Very technically difficult study Contrast: Definity Total Dose (mL): 2 MEASUREMENTS (Male / Female) Normal Values 2D ECHO Measurement LV Diastolic Diameter PLAX 5.3 cm 4.2 - 6.0 / 3.9 - 5.4 cm LV Systolic Diameter PLAX 3.5 cm 2.1 - 4.0 cm IVS Diastolic Thickness 1.3 cm 0.6 - 1.1 / 0.6 - 1.0 cm LVPW Diastolic Thickness 1.3 cm 0.6 - 1.1 / 0.6 - 1.0 LV Relative Wall Thickness 0.48 LVOT Diameter 2 cm Aortic Root Diameter 3.5 cm Aortic Root Diameter Index 1.3 cm/m2 LA Systolic Diameter LX 5.5 cm 3.0 - 4.1 / 2.7 - 3.9 cm LA Volume Index 29.5 cm3/m2 16 - 28 cm3/m2 DOPPLER Measurement AV Peak Velocity 123 cm/s AV Peak Gradient 6.1 mmHg LVOT Peak Velocity 97.3 cm/s LVOT Peak Gradient 3.8 mmHg AV Area Cont Eq vti 2.4 cm2 AV Area Cont Eq pk 2.5 cm2 Mitral E Point Velocity 94.7 cm/s MV Area PHT 5 cm2 MV Deceleration Time 152 ms TR Peak Velocity 269 cm/s TR Peak Gradient 28.9 mmHg PV Peak Velocity 110 cm/s PV Peak Gradient 4.8 mmHg Mitral E to LV E' Lateral Ratio 7.4 LV E' Septal Velocity 8.7 cm/s Mitral E to LV E' Septal Ratio 10.9 FINDINGS Left Ventricle: Normal LV size with left ventricular ejection fraction 50-55%. LVH with grade I diastolic dysfunction. No regional wall motion abnormalities. Right Ventricle: Right ventricular dilatation. Right Atrium: Severe right atrial dilation. Normal collapse of IVC Left Atrium: Moderate LAE (5.0 cm) Intravenous Agitated Saline: Mitral Valve: Mild mitral regurgitation. Aortic Valve: No aortic stenosis. No aortic regurgitation. Aortic valve not well visualized. Tricuspid Valve: Tricuspid valve not well visualized. Mild tricuspid regurgitation. Right ventricular systolic pressure is approximately 32 mmHg. Pulmonic Valve: Pulmonic valve not well visualized. Pericardium: Normal pericardium. Aorta: Normal size aortic root. CONCLUSIONS 1 Normal LV size with left ventricular ejection fraction 50- 55%. LVH with grade I diastolic dysfunction. No regional wall motion abnormalities. 2 Mild mitral regurgitation. Moderate LAE (5.0 cm) 3 Mild pulmonary hypertension (estimated PA systolic pressure 32 mmHg). Right ventricular dilatation. 4 Normal pericardium. REPORT SIGNATURE ON FILE 12/06/20 1533 Reported By: Max Saab MD <Electronically signed by Max Saab MD in OV> Exam Date/Time: 12/06/20 1137 Order #: [id number] Dictation Date/Time: 12/06/20 1154 Transcribed Date/Time: Pipeline Inspector: Name Value Range Interpretation Code Description Data Simran rce(s) Supporting Document(s) ID Date Data Source [id number] 11/29/2020 12:54:00 PM EDT [facility] Name: SEBASTIAN FOFANA : 1955 Age/Sex: 65M Ordering Provider: Max Saab MD Med Rec #: [id number] Reg Status: DEP REF Room #: Date of Service: 11/29/20 Report Number: [id number] cc:Natanael Rosales MD; Max Saab MD Send Report To: NMSPECT Nasim Spect Ex/Rest Mult Ht (in): 70 Wt (lb): 299 Tech/RN: Gunner Ureña Accession Number: [id number] Procedure: Myocardial Perfusion Study Indications: Persistent atrial fibrillation IMAGE PROTOCOL Rest/Stress 1 Day Radiopharm Dose(mCi) Duration(min) Img Date Img Time Rest: Tc-99m 35.1 12/06/2020 Sestamibi Stress: Tc-99m 36.7 20 12/06/2020 Sestamibi Administration Site: Intravenous SPECT RESULTS Technical Quality: Raw Data Analysis: Summed Stress Score: Summed Rest Score: 0 Summed Difference Score:0 Perfusion: FUNCTION Resting LV EF: % EDV: ml Post Stress LV EF: % EDVI: ml/m2 TID: ESV: ml ESVI: ml/m2 Technical Quality: LV Size Function: LV Regional Function: The review of post stress and rest images demonstrate the following scintigraphic activity: The left ventricle is normal in size. There is a moderate size reverse distribution defect involving the inferior wall, with normal wall thickness and wall motion. This finding most likely represents diaphragmatic attenuation artifact. There are no definitive reversible perfusion defects consistent with ischemia. There are no definitive fixed perfusion defects consistent with scar/infarct The summed stress score is 5, the summed rest score is 15. The SDS score is 0 There is no transient ischemic dilatation There is normal wall thickness and wall motion. By gated SPECT the post stress LVEF is 66% Right Ventricle: IMPRESSIONS No definitive scintigraphic activity consistent with significant ischemia or scar Findings consistent with diaphragmatic attenuation artifact is noted. There is no transient ischemic dilatation. Normal wall thickness and wall motion By gated SPECT the post-stress LVEF is 66%. Fluoroscopy time in seconds: CT Dose in mSv: Contrast Agent in ml: Method of Administration: Intraveneous REPORT SIGNATURE ON FILE Reported By: Khoa Gómez MD <Electronically signed by Khoa Gómez MD in OV> 12/09/20 1636 Dictation Date/Time: 11/29/20 1411 Transcribed Date/Time: Pipeline Inspector: Name Value Range Interpretation Code Description Data Simran rce(s) Supporting Document(s) ID Date Data Source [id number] 11/29/2020 12:54:00 PM EDT [facility] Name: SEBASTIAN FOFANA : 1955 A ge/Sex: 65M Ordering Provider: Max Saab MD Med Rec #: [id number] Reg Status:REG REF Room #: Date of Service: 11/29/20 Report Number: [id number] cc: Max Saab MD; Natanael Rosales MD Send Report To: [facility] Stress Test Accession Number: [id number] Ht (in): 70 Wt (lb): 299 Tech/RN: Yulissa Napoles RN Procedure: [facility] Stress Test Indications: Chest Pain,Atrial Fibrillation Patient History: Hyperlipidemia, Atrial Fibrillation, Hypertension, Smoker, COPD, Obesity, Sleep Apnea Cardiac Medications: STRESS TEST: [facility] Stress Test Exercise Duration (min:sec) 02:30 METS: 1.0 Expected Exercise Duration: Resting HR (bpm): 93 Resting BP (mmHg): 136 / 88 Peak HR (bpm): 111 Peak BP (mmHg): 142 / 80 MPHR: 154 Target HR: 131 % MPHR: 72 Double Product: 74806 BP Response: Stress Termination: On completion of Protocol Stress Summary: The patient had a maximal dose of 0.4 mg of regadenoson bolus over 10 seconds. There was no chest pain. The test was terminated upon protocol completion. The recovery period was uneventful. The patient had myocardial perfusion imaging per protocol. ECG ANALYSIS Resting ECG: Atrial fibrillation, nonspecific ST changes Stress ECG: No ischemic EKG changes. CONCLUSIONS Normal EKG response to regadenoson with no ischemic changes noted. Nonischemic clinical response SPECT imaging to be completed REPORT SIGNATURE ON FILE 11/29/20 1426 Reported By: Daquan shafer MD <Electronically signed by Daquan Maldonado MD in OV> Exam Date/Time: 11/29/20 1254 Order #: [id number] Dictation Date/Time: 11/29/20 1304 Transcribed Date/Time: Pipeline Inspector: Name Value Range Interpretation Code Description Data Simran rce(s) Supporting Document(s) ID Date Data Source [id number] 11/09/2020 03:29:28 PM [facility]T [facility] INFORMATIONPatient MRN Name Date of Age Gend*PT [id number] Sebastian Fofana 1955 65 years M OPPT Location Admission Date/Time Visit ID Attending Provider --- --- --- Yesi Modi MD([id number]) EPI ID CSN Admitting Provider [id number] Yesi Modi MD([id number])OUTPATIENT / OBSERVATIONAL SURGICAL OR INVASIVE PROCEDUREName: Sebastian Fofana : 1955 Sex: male Care Provider: Fernando Fernandes MDAttending Physician: Dr. Modi.HISTORY OF PRESENT ILLNESS: 65 years old male . He has had a long history oflumbar sacral pain. He states that his pain radiates from his lumbar regioninto both of his legs accompanied by weakness. He also experiences numbness andtingling. He uses a walker and/or cane to ambulate. A diagnosis of spinalstenosis has been made. The patient has been seen and evaluated by , and treatment options have been reviewed with him. He is nowelecting for L3-4 L4-5 L5-S1 laminectomy with foraminotomies. These proceduresare scheduled on 11/14/2020.PAST MEDICAL HISTORY:Past Medical History:Diagnosis Date Chest pain Abnormal EKG on 11/09/2020; will require cardiac clearance prior to surgery;apparently he has been noncompliant with cardiac appointments Cirrhosis Remote history; states he has cut down on his drinking COPD (chronic obstructive pulmonary disease) Has seen Dr. Marr in the [facility] in the past. Has not seen him recently DVT (deep venous thrombosis) 2014 Right lower extremity; was anticoagulated GERD (gastroesophageal reflux disease) Hyperlipidemia Hypertension Loosening of tooth Tooth #4 lower; advised to address prior to surgery Sleep apnea does not use CPAPPAST SURGICAL HISTORY:Past Surgical History:Procedure Laterality Date CATARACT EXTRACTION Bilateral JOINT REPLACEMENT Bilateral Hips KNEE ARTHROSCOPY Bilateral X3 each sideALLERGIES: No Known Drug AllergiesMEDICATIONS:Prior to Admission medicationsMedication Sig Start Date End Date Taking? Authorizing Provideralbuterol (PROVENTIL HFA;VENTOLIN HFA) 108 (90 Base) MCG/ACT inhaler Inhale 2puffs every 4 (four) hours as needed for wheezing Historical Provider, Jaspreetllopurinol (ZYLOPRIM) 100 MG tablet Take 100 mg by mouth daily HistoricalProvider, MDamLODIPine (NORVASC) 10 MG tablet Take 10 mg by mouth daily HistoricalProvider, MDchlorthalidone (HYGROTEN) 25 MG tablet Take 25 mg by mouth daily HistoricalProvider, MDfolic acid (FOLVITE) 1 MG tablet Take 1 mg by mouth daily HistoricalProvider, MDfurosemide (LASIX) 40 MG tablet Take 40 mg by mouth daily HistoricalProvider, MDmetoprolol tartrate (LOPRESSOR) 25 MG tablet Take 25 mg by mouth 3 (three) timesa day Historical Provider, nitroglycerin (NITROSTAT) 0.[address] 0.4 mg under the tongue every 5(five) minutes as needed for chest pain Historical Provider, oxyCODONE-acetaminophen (PERCOCET) 10-325 MG per tablet Take 1 tablet by mouthevery 8 (eight) hours as needed for pain Historical Provider, MDpantoprazole (PROTONIX) 40 MG tablet Take 40 mg by mouth daily HistoricalProvider, MDpotassium chloride SA (K-DUR,KLOR-CON) 10 MEQ tablet Take 10 mEq by mouth dailyHistorical Provider, MDspironolactone (ALDACTONE) 25 MG tablet Take 25 mg by mouth daily HistoricalProvider, MDsucralfate (CARAFATE) 1 g tablet Take 1 g by mouth 4 (four) times a dayHistorical Provider, zolpidem (AMBIEN) 10 MG tablet Take 10 mg by mouth nightly as needed for sleepHistorical Provider, VERNocial HistoryTobacco Use Smoking status: Current Every Day Smoker Packs/day: 1.00 Years: 35.00 Pack years: 35.00 Types: Cigarettes Smokeless tobacco: Never UsedSubstance Use Topics Alcohol use: Yes Comment: 1 pint per week Drug use: Yes Types: Marijuana Comment: rare;last 2 weeks agoFamily HistoryProblem Relation Age of Onset Dementia Mother Stroke FatherREVIEW OF SYSTEMS:Respiratory: Denies any shortness of breath, cough, yellow sputum production orwheezing.Cardiovascular: Denies any chest pain, pressure or tightness. Denies anyparoxysmal nocturnal dyspnea or orthopnea.GI: Denies nausea, vomiting, diarrhea, constipation or melena.Neurologic: Denies any numbness, tingling, tremors or syncope.Vascular: Denies any edema. Denies claudication.PHYSICAL EXAM:GENERAL: He is a 65 years old, pleasant obese male, in no acute distress at timeof examination. Vitals on arrival to the office are BP 130/88 (BP Location: Leftupper arm, Patient Position: Sitting) | Pulse 75 | Ht 1.727 m (5' 8") | Wt(!) 133.8 kg (294 lb 14.4 oz) | SpO2 92% | BMI 44.84 kg/m Body mass index is44.84 kg/m ..Skin is pink, warm, and dry.NECK: He has a grade 4 airway. Neck is supple, midline, without cervicaladenopathy. No thyromegaly. No carotid bruits.MENTAL / NEUROLOGICAL STATUS: [id number]: Clear to auscultation. No wheezes, rhonchi or crackles.HEART: Rate rhythm regular. S1, S2. No murmur, rub or gallop.ABDOMEN: Bowel sounds positive times four. Soft, non tender. No reboundtenderness. No hepatosplenomegaly. Negative CVAT.EXTREMITIES: Pulses are symmetrical. Trace edema.OPERATIVE SITE: Clean and dry.Anesthesia complications: None knownCSHA Frailty Scale :: 4/10 Vulnerable (while not dependent on others for dailyhelp, often symptoms limit activities. A common complaint is being "slowed up",and /or being tired during the day).Stop Bang Questionnaire - Total Score:ASSESSMENT: Primary Diagnosis/Indication: Spinal stenosis lumbar region withneurogenic claudication.PLAN: Procedure: L3-4 L4-5 L5-S1 laminectomy with foraminotomies.Patient was advised to seek dental attention regarding his loose tooth.11/09/2020 3:26 PMKathljosafat Pereira, Adelitas document or parts of this document, were dictated using [employer] speaking software. A reasonable attempt at proofreading has beenmade to minimize errors. Please call with any questions or corrections.* Name Value Range Interpretation Code Description Data Simran rce(s) Supporting Document(s) ID Date Data Source [id number] 11/09/2020 12:56:[address] [facility] Name Value Range Interpretation Code Description Data Simran rce(s) Supporting Document(s) EKG [facility] [id number] [file] [id number] ID Date Data Source [id number] 11/10/2020 12:05:26 PM EDT [facility] [place] [facility] Name Value Range Interpretation Code Description Data Simran rce(s) Supporting Document(s) SPECIMEN DESCRIPTION [facility] STAPH SCREEN RESULTS (ONEGSA) A [facility] [place] COMMENT [facility] [place] [facility] [place] GENE TO DETECT STAPH AUREUS. (2) RT-P CR WAS PERFORMED FOR THE mecA AND [employer] GENES TO DETECT METHICILLIN RESISTANCE IN STAPH AUREUS. ID Date Data Source [id number] 11/09/2020 07:32:43 PM EDT [facility] [place] [facility] [place] SPEC EXP DATE 11/15/2020ATI ENT ABO/Rh A POSITIVEANTIBODY SCREEN NEGATIVETESTING SITE PERFORMED AT [address] [place] [address] Name Value Range Interpretation Code Description Data Simran rce(s) Supporting Document(s) TYPE AND SCREEN [facility] [place] [facility] [place] ID Date Data Source [id number] 11/09/2020 06:27:22 PM EDT [facility] [place] [facility] [place] Name Value Range Interpretation Code Description Data Simran rce(s) Supporting Document(s) APTT 26.8 s (22.0-34.3) [facility] [place] [facility] [place] [facility] ID Date Data Source [id number] 11/09/2020 06:27:22 PM EDT [facility] [place] [facility] [place] Name Value Range Interpretation Code Description Data Simran rce(s) Supporting Document(s) PT 11.2 s (9.2-11.9) [facility] [place] [facility] [place] INR 1.08 [facility] [place] [facility] [place] SUGGESTED THERAPEUTIC RANGES USING INR F ORSTABILIZED ANTICOAGULATED PATIENTS:STANDARD DOSE THERAPY INR 2.0-3.0 DVT, PE, PREVENT DVT OR EMBOLISMHIGH DOSE THERAPY INR 2.5-3.5 PREVENT EMBOLISM FROM MECHANICAL HEART VALVE ID Date Data Source [id number] 11/09/2020 06:10:49 PM EDT [facility] [place] [facility] Name Value Range Interpretation Code Description Data Simran rce(s) Supporting Document(s) HEMOGLOBIN A1C @ 5.5 % (4.0-6.0) [facility] [place] ph[facility]ip JULIAN Performed using Siemens [place] immunoassa y.Care must be taken when interpreting [id number] in patients with a hemoglobin variantor decreased erythrocyte lifespan. Values 5.7 - 6.4% suggest prediabetes.Values >=6.5% are diagnostic for diabetes.REFERENCE: DIABETES CARE 2018: 41(S13-S27). EST AVERAGE GLUCOSE 111 mg/dL [facility] ID Date Data Source [id number] 11/09/2020 06:09:18 PM EDT [facility] [place] [facility] Name Value Range Interpretation Code Description Data Simran rce(s) Supporting Document(s) SODIUM 133 mmol/L (136-145) L [facility] [place] [facility] POTASSIUM 3.6 mmol/L (3.6-5.2) [facility] [place] [facility] CHLORIDE 91 mmol/L (100-108) L [facility] [place] [facility] CO2 32 mmol/L (22-31) H [facility] [place] [facility] ANION GAP 10 mmol/L (7-16) [facility] [place] [facility] UREA NITROGEN 46 mg/dL (7-24) H [facility] [place] [facility] CREATININE 1.83 mg/dL (0.80-1.30) H [facility] [place] [facility] BUN/CREAT RATIO 25.1 RATIO (10.0-20.0) H [facility] GLUCOSE 122 mg/dL (70-99) H [facility] [place] [facility] CALCIUM 10.0 mg/dL (8.4-10.2) [facility] [place] [facility] TOTAL PROTEIN 7.9 g/dL (6.4-8.2) [facility] [place] [facility] ALBUMIN 4.1 g/dL (3.2-4.5) [facility] [place] [facility] GLOBULIN 3.8 g/dL (2.7-4.3) [facility] [place] [facility] ALB/GLOB RATIO 1.1 RATIO [facility] [place] [facility] ALKALINE PHOSPHATASE 66 U/L (45-117) [facility] BILIRUBIN,TOTAL 1.2 mg/dL (0.0-1.0) H [facility] [place] [facility] PLEASE NOTE:Total bilirubin results may be falselyelevated in patients taking Eltrombopag. AST (SGOT) 30 U/L (11-39) [facility] [place] [facility] ALT (SGPT) 20 U/L (12-78) [facility] [place] [facility] GFR 37 ml/min/1.73m2 (>59) L [facility] [place] [facility] GFR ( AMER) 45 ml/min/1.73m2 (>59) L [facility] [place] [facility] GFR INTERPRETATION [facility] --NORMAL KIDNEY FUNCTION OR MILD DISEASE - GFR >OR= 60CHRONIC KIDNEY DISEASE - GFR 15 - 59RENAL FAILURE - GFR <15 Est. GFR calculation based on the MDRDstudy equation, which assumes a steadystate for creatinine. Est. GFR should notbe used for medication dosing. ID Date Data Source [id number] 11/09/2020 06:09:18 PM EDT [facility] [place] [facility] Name Value Range Interpretation Code Description Data Simran rce(s) Supporting Document(s) BILIRUBIN,UNCONJ. 0.8 mg/dL (0.0-0.7) H [facility] [place] [facility] ID Date Data Source [id number] 11/09/2020 06:09:18 PM EDT [facility] [place] [facility] Name Value Range Interpretation Code Description Data Simran rce(s) Supporting Document(s) BILIRUBIN,CONJUGATED 0.4 mg/dL (0.0-0.3) H [facility] ID Date Data Source [id number] 11/09/2020 05:54:09 PM EDT [facility] [place] [facility] Name Value Range Interpretation Code Description Data Simran rce(s) Supporting Document(s) WBC 12.7 10*3/uL (4.1-11.0) H [facility] [place] [facility] RBC 4.84 10*6/uL (4.60-6.10) [facility] [place] [facility] HGB 15.9 g/dL (13.5-18.0) [facility] [place] [facility] HCT 47.1 % (41.0-53.0) [facility] [place] [facility] MCV 97.3 fL (80.0-95.0) H [facility] [place] [facility] MCH 32.9 pg (27.0-32.0) H [facility] [place] [facility] MCHC 33.8 g/dL (32.0-36.0) [facility] [place] [facility] RDW 14.9 % (10.5-14.5) H [facility] [place] Vahid Payan PLT 211 10*3/uL (150-450) [facility] [place] [facility]an MPV 11.2 fL (7.1-10.7) H [facility] [place] phillip JULIAN ID Date Data Source [id number] 11/09/2020 10:15:00 AM EDT [facility] Name Value Range Interpretation Code Description Data Simran rce(s) Supporting Document(s) SARS coronavirus 2 RNA Not Detected [facility] [place] This lab was ordered by [facility] [place] [facility] and reported by [employer]. ID Date Data Source [id number] 11/10/2020 03:09:05 PM EDT [facility] phillip JULIAN Name Value Range Interpretation Code Description Data Simran rce(s) Supporting Document(s) SARS-COV-2 ROBERT [facility] [place] [facility] JULIAN Not DetectedReference range: Not Detecte d This nucleic acid amplification test was developed and its performance characteristics determined by [employer]. Nucleic acid amplification tests include RT-PCR and TMA. This test has not been FDA cleared or approved. This test has been authorized by FDA under an Emergency Use Authorization (EUA). This test is only authorized for the duration of time the declaration that circumstances exist justifying the authorization of the emergency use of in vitro diagnostic tests for detection of SARS-CoV-2 virus and/or diagnosis of COVID-19 infection under section 564(b)(1) of the Act, 21 U.S.C. 360bbb-3(b) (1), unless the authorization is terminated or revoked sooner. When diagnostic testing is negative, the possibility of a false negative result should be considered in the context of a patient's recent exposures and the presence of clinical signs and symptoms consistent with COVID- 19. An individual without symptoms of COVID- 19 and who is not shedding S ARS-CoV-2 virus would expect to have a negative (not detected) result in this assay. Performed At: [employer] [place], [place] [id number] Quan Greer PhD Ph:[phone] ID Date Data Source [id number] 11/08/2020 04:14:00 PM EDT [facility] Name Value Range Interpretation Code Description Data Simran rce(s) Supporting Document(s) Sodium 135 mmol/L 136-145 Below low normal [facility] Potassium 3.5-5.1 Normal (applies to non-numeric resul ts) [facility] Chloride 94 mmol/L 98-107 Below low normal [facility] Carbon Dioxide CO2 21-32 Normal (applies to non-numer ic results) [facility] Anion Gap 5.0-16.0 Above high normal [facility] BUN 41 mg/dL 7-18 Above high normal [facility] Creatinine,Serum 0.8-1.5 Above high normal [facility] GFR 43 mL/min >60 Below low normal [facility] Glucose Level 115 mg/dL 60-99 Above high normal [facility] Reference range is only applicable when patient is fasting Note the following drug interference: Sulfasalazine Sulfapyridine Can see falsely depressed Can see falsely elevated result with up to 17% results with up to 11% decrease in measurement increase in measurement Recommend patients be collected for this test prior to administration of either drug. Calcium 8.5-10.1 Above high normal [facility] Bilirubin,Total 0.1-1.9 Normal (applies to non-numeric results) [facility] SGOT(AST) 38 U/L 15-37 Above high normal [facility] Note the following drug interference: Sulfasalazine Sulfapyridine Can see falsely depressed Can see falsely elevated result with up to 10% results with up to 10% decrease in measurement increase in measurement Recommend patients be collected for this test prior to administration of either drug. SGPT(ALT) 33 U/L 12-78 Normal (applies to non-numeric resul ts) [facility] Note the following drug interference: Sulfasalazine Sulfapyridine Can see falsely depressed Can see falsely elevated result with up to 29% results with up to 10% decrease in measurement increase in measurement Recommend patients be collected for this test prior to administration of either drug. Alkaline Phosphatase 68 U/L 38-126 Normal (applies to non-num angelia results) [facility] can increase Alkaline Phosp le vels up to 2 times the normal adult value. Normal values for children and adolescents are 2 to 3 times the normal adult value. Total Protein 6.0-8.2 Normal (applies to non-numeric re sults) [facility] Albumin Level 3.4-5.0 Normal (applies to non-numeric re sults) [facility] ID Date Data Source [id number] 11/08/2020 03:44:00 PM EDT [facility] Name Value Range Interpretation Code Description Data Simran rce(s) Supporting Document(s) White Blood Count 3.5-10.5 Above high normal [facility] Red Blood Count 4.30-5.70 Normal (applies to non-numeric results) [facility] Hemoglobin 13.5-17.5 Normal (applies to non-numeric resul ts) [facility] Hematocrit 38.8-50.0 Normal (applies to non-numeric resul ts) [facility] Mean Corpuscular Volume 81.2-95.1 Normal (applies to non- numeric results) [facility] Mean Corpuscular Hgb 25.6-32.2 Normal (applies to non-num angelia results) [facility] Mean Corpuscular Hgb Conc 32.0-36.0 Normal (applies to no n-numeric results) [facility] Red Cell Distribution Width 11.8-15.6 Normal (appli es to non-numeric results) [facility] Platelet Count 279 x10 3/uL 150-450 Normal (applies to non-numeric results) [facility] Mean Platelet Volume 9.4-12.4 Normal (applies to non-num angelia results) [facility] Neutrophils% (Auto) 31.0-71.0 Above high normal [facility] Lymphocytes% (Auto) 20.0-55.0 Below low normal [facility] Monocytes% (Auto) 4.0-12.0 Normal (applies to non-numeri c results) [facility] Eosinophils% (Auto) 1.0-8.0 Normal (applies to non-nume max results) [facility] Basophils% (Auto) 0.0-2.0 Normal (applies to non-numeri c results) [facility] Immature Granulocytes% (Auto) 0.0-2.0 Normal (trey lies to non-numeric results) [facility] Neutrophils# (Auto) 1.50-6.20 Above high normal [facility] Lymphocytes# (Auto) 1.20-4.00 Normal (applies to non-nume max results) [facility] Monocytes# (Auto) 0.00-0.90 Normal (applies to non-numeri c results) [facility] Eosinophils# (Auto) 0.00-0.50 Normal (applies to non-nume max results) [facility] Basophils# (Auto) 0.00-0.20 Normal (applies to non-numeri c results) [facility] Immature Granulocytes# (Auto) 0.00-7.00 No rmal (applies to non-numeric results) [facility] ID Date Data Source [id number] 10/27/2020 11:54:04 AM EDT [facility] PCName: Sebastian PengB: 4Provider: Maira Modi: 10/27/2020 Reason For Tonia Fofana is here today for Lumbar spine. Sebastian has not had the Covid vaccine. Sebastian Fofana is an established patient here for follow up. Surgery Description: L3-S1 laminectomy/foramintomies. Expected DOS: 11/14/2020. Patient states the injury occurred after a fall. 3/4 years ago. Patient is retired. History of Present IllnessStill no new significant clinical changes compared to last office visitChronic low back painEpisodic bilateral lower extremity painPhysical ther apy 2019Also saw pain management in [facility] and [place]--injections not helpfulAlso saw neurosurgery in [place], Dr. Akhtar The patient complains of pain in the lumbar spine . The pain radiates to both, buttock(s), thigh(s) and leg(s) . Right worse than left The patient denies signs of bladder dysfunction, bowel dysfunction, cancer/metastasis, infection and myelopathy . The pain is achy . The pain severity is rated 8 out of 10. Pain is aggravated by standing and walking . There is no numbness or weakness. Results/Data OtherBelow diagnostic testing were independently reviewed as well as reviewed the official corresponding reports:MRI lumbar [facility] 12/01/2019: L3-4 right synovial cyst with severe central stenosis; L4-5 severe stenosis; L5-S1 foraminal narrowingMRI lumbar SOS 09/29/2020: Comparison 12/01/2019-no significant change. L3-4 severe stenosis; L4-5 severe stenosis; L5-S1 moderate stenosis. Multilevel DDDReviewed in detail the results of the diagnostic testing. Reviewed the pertinent applicable clinical implications relating to the patient. Also provided a copy of the results for their personal records. Assessment 1. Spinal stenosis of lumbar region with neurogenic claudication (724.03) (M48.062) 2. Lower back pain (724.2) (M54.5) 3. Degenerative lumbar disc (722.52) (M51.36) Condition: Chronicetiology: age-related spine/joint degenerationlevels: L3-4, L4-5 and L5-S1 PlanAgain--long discussion reviewing the different treatment conservative options(observation, medication(s), physical therapy, health care assistant, acupuncture, pain clinic, home exercise program, another Orthopedic/spine opinion, additional testing, etc.)--- with pros and cons, potential risks/potential benefits of each option, as well as the chances of successes/failures of each option.Also discussed the option of surgery with pros and cons, risks and benefits as well as the risks of not having surgery. Also discussed the option of getting a second surgical opinion, if desired.At this time, they wish to proceed with:Surgery-lumbar laminectomyPlan L3-S1 laminectomy/foraminotomies This document was dictated and electronically signed using Law[employer]ite software. A reasonable attempt at proof reading has been made to minimize errors. Please call with any questions. Signatures Electronically signed by : Yesi Modi M.D.; Oct 27 2020 11:50AM EST (Author) Electronically signed by : Yesi Modi M.D.; Oct 27 2020 11:54AM EST (Author) Name Value Range Interpretation Code Description Data Simran rce(s) Supporting Document(s) ID Date Data Source [id number] 09/29/2020 05:21:27 PM EDT [facility] PCName: Sebastian PengB: 4Provider: Maira Modi: 09/29/2020 Reason For VisitEdcolby Fofana is here today for Lumbar spine. Sebastian has not had the Covid vaccine. Sebastian Fofana is here for evaluation of MRI results. Patient is here for same day MRI results. The patient is currently residing at home. Other DOI/DOO: 3-4 years. Patient states the injury occurred after a fall. The patient has had a course of physical therapy for greater than 4 weeks. Physical therapy and/or home exercise program has not been effective. The patient's pain is managed by . Patient is retired. History of Present IllnessPatient is seen in follow up from last visit. Since last visit he has been evaluated with an MRI. No new significant clinical changes compared to last office visitChronic low back painEpisodic bilateral lower extremity painPhysical therapy 2019Also saw pain management in [facility] and [place]--injections not helpfulAlso saw neurosurgery in [place], Dr. Akhtar The patient complains of pain in the lumbar spine . The pain radiates to both, buttock(s), thigh(s) and leg(s) . Right worse than left The patient denies signs of bladder dysfunction, bowel dysfunction, cancer/metastasis, infection and myelopathy . The pain is achy . The pain severity is rated 8 out of 10. Pain is aggravated by standing and walking . There is no numbness or weakness. Results/Data XRays previously taken at [facility] were reviewed today. Site: Lumbar Spine Views: 2 Views, AP/Lateral Standing Findings:. degenerative disc disease of a moderate degree. Results/Data OtherBelow diagnostic testing were independently reviewed as well as reviewed the official corresponding reports:MRI lumbar [facility] 12/01/2019: L3-4 right synovial cyst with severe central stenosis; L4-5 severe stenosis; L5-S1 foraminal narrowingMRI lumbar [facility] 09/29/2020: Comparison 12/01/2019-no significant change. L3-4 severe stenosis; L4-5 severe stenosis; L5-S1 moderate stenosis. Multilevel DDDReviewed in detail the results of the diagnostic testing. Reviewed the pertinent applicable clinical implications relating to the patient. Also provided a copy of the results for their personal records. Assessment 1. Degenerative lumbar disc (722.52) (M51.36) 2. Spinal stenosis of lumbar region with neurogenic claudication (724.03) (M48.062) Condition: Chronicetiology: age-related spine/joint degenerationlevels: L3-4, L4-5 and L5-S1 Plan You need to quit smoking.; Status:Complete; Done: 29Sep2020 Last Updated By:Benigno Love; 09/29/2020 2:49:27 PM;Ordered; For:SocHx: Current every day smoker; Ordered By:Yesi Modi; Long discussion reviewing the different treatment conservative options(observation, medication(s), physical therapy, health care assistant, acupuncture, pain clinic, home exercise program, another Orthopedic/spine opinion, additional testing, etc.)--- with pros and cons, potential risks/potential benefits of each option, as well as the chances of successes/failures of each option.Also discussed the option of surgery with pros and cons, risks and benefits as well as the risks of not having surgery. Also discussed the option of getting a second surgical opinion, if desired.At this time, they wish to proceed with:Surgery-lumbar laminectomyPlan L3-S1 laminectomy/foraminotomies This document was dictated and electronically signed using LawBite software. A reasonable attempt at proof reading has been made to minimize errors. Please call with any questions. Signatures Electronically signed by : Yesi Modi M.D.; Sep 29 2020 5:21PM EST (Author) Name Value Range Interpretation Code Description Data Simran rce(s) Supporting Document(s) ID Date Data Source [id number] 09/29/2020 02:59:00 PM EDT [facility] PATIENT MR#: [id number] NAME: SEBASTIAN COYNE RDATE OF : 4REFERRING PHYSICIAN: Yesi ModiEXJED DATE: 09/29/2020XAM: MR Lumbosacral Spine Without ContrastINDICATION: Low back pain.COMPARISON: Lumbar spine x-ray dated 09/15/2020. Lumbar spine MRI dated12/01/2019.TECHNIQUE: Multiplanar multisequence MR imaging of the lumbosacral spine wasperformed on a 1.5T GE Scanner using various scan planes and pulse sequences. Intravenous contrast was not administered.FINDINGS: For the purposes of nomenclature, the most inferior intervertebraldisc level fully included within the axial series will be designated L5-S1. Mild chronic anterior wedging of the T12 vertebral body. No edema to suggestacute fracture. Diffuse moderate disc desiccation and and height lossthroughout the lumbar spine. Normal lumbar lordosis. Conus terminates at L1and is unremarkable.T11-T12: Sagittal images only. Left foraminal disc protrusion causes mild tomoderate narrowing of the left neural foramen. No significant spinal canalstenosis or right neural foraminal narrowing. No change.T12-L1: Broad-based left paracentral disc protrusion and mild facet degenerativechanges causes mild narrowing of the left lateral recess. No significant spinalcanal stenosis or neural foraminal narrowing. No change. L1-L2: Small broad-based disc protrusion and mild facet degenerative changesresults in mild narrowing of the left lateral recess. No significant spinalcanal stenosis or neural foraminal narrowing. No change.L2-L3: Diffuse disc bulge with foraminal components, facet hypertrophy, andligamentum flavum t hickening results in mild spinal canal stenosis, mild lateralrecess narrowing, and mild bilateral neural foraminal narrowing, left greaterthan right. No change.L3-L4: Diffuse disc bulge with foraminal components, facet hypertrophy, andligamentum flavum thickening results in severe spinal canal stenosis, severelateral recess narrowing and moderate to severe bilateral neural foraminalnarrowing, right greater than left. No change. There is laxity of nerve rootsabove this level.L4-L5: Diffuse disc bulge with foraminal components, severe facet degenerativechanges, and ligamentum flavum thickening results in severe spinal canalstenosis, severe lateral recess narrowing, and moderate to severe right andmoderate left neural foraminal narrowing. There is compression of the exitingright L4 nerve root. No change.L5-S1: Prominence of the epidural fat. Diffuse disc bulge and moderate facetdegenerative changes result in moderate canal stenosis, moderate bilateralneural foraminal narrowing greater on the left, severe left and mild rightneural foraminal narrowing. No change fromThere is moderate fatty infiltration of the paraspinal musculature.IMPRESSION: No significant change from previous MRI. Advanced multilevel lumbar spinedegenerative changes with severe spinal canal stenosis at L3-L4 and L4-L5. Moderate to severe bilateral neural foraminal narrowing at L3- L4. Moderate tosevere right and moderate left neural foraminal narrowing at L4- L5.Read by: Katya ToneyTranscribed by: Katya ToneyTranscribed Date: 09/29/2020 2:59:29 PMElectronically signed by: Katya ToneyDate signed: 09/29/2020 2:59:29 PM Name Value Range Interpretation Code Description Data Simran rce(s) Supporting Document(s) ID Date Data Source [id number] 09/23/2020 12:14:00 PM EDT [facility] Name Value Range Interpretation Code Description Data Simran rce(s) Supporting Document(s) SARS coronavirus 2 RNA [Presence] in Res piratory specimen by ROBERT with probe detection NEGATIVE [facility] This lab was ordered by [facility] a nd reported by [facility]. ID Date Data Source [id number] 09/15/2020 09:14:37 PM EST [facility] PCName: Sebastian PengB: 4Provider: Maira Modi: 09/15/2020 Reason For Tonia Fofana is here today for Lumbar spine. Sebastian has not had the Covid vaccine. Sebastian Fofana is a new patient. Images imported from [facility]. Patient reports pain in Lumbar spine radiating down both legs. Patient states he cannot stand for long periods of time. Patient reports throbbing pain in both legs, R>L The patient is currently residing at home. Other DOI/DOO: 3-4 years. Patient states the injury occurred after a fall. The patient has had a course of physical therapy for greater than 4 weeks. Physical therapy and/or home exercise program has not been effective. The patient's pain is managed by . Patient is retired. History of Present IllnessChronic low back painEpisodic bilateral lower extremity painPhysical therapy 2019Also saw pain management in [facility] and [place]--injections not helpfulAlso saw neurosurgery in Dr. Hermilo Harp The patient complains of pain in the lumbar spine . The pain radiates to both, buttock(s), thigh(s) and leg(s) . Right worse than left The patient denies signs of bladder dysfunction, bowel dysfunction, cancer/metastasis, infection and myelopathy . The pain is achy . The pain severity is rated 8 out of 10. Pain is aggravated by standing and walking . There is no numbness or weakness. Results/DataXRays were ordered, obtained and interpreted today in the office. Indication: pain/dysfunction. Site: Lumbar Spine Views: 2 Views, AP/Lateral Standing Findings:. degenerative disc disease of a moderate degree. Results/Data OtherBelow diagnostic testing were independently reviewed as well as reviewed the official corresponding reports:MRI [facility] 12/01/2019: L3-4 right synovial cyst with severe central stenosis; L4-5 severe stenosis; L5-S1 foraminal narrowingReviewed in detail the results of the diagnostic testing. Reviewed the pertinent applicable clinical implications relating to the patient. Also provided a copy of the results for their personal records. Assessment 1. Lower back pain (724.2) (M54.5) 2. Degenerative lumbar disc (722.52) (M51.36) 3. Spinal stenosis of lumbar region with neurogenic claudication (724.03) (M48.062) 4. Synovial cyst (727.40) (M71.30) Condition: Chronicetiology: age-related spine/joint degenerationlevels: L3-4, L4-5 and L5- S1 Plan X-Ray I Lumbosacral - 2 views (XRays were ordered, obtained and interpreted today inthe office. Indication: pain/dysfunction.); Status:Complete; Done: 15Sep2020 Perform:SOS22; Due:29Sep2020; Last Updated By:Haleigh Tate; 09/15/2020 2:02:59 PM;Ordered; For:Lower back pain; Ordered By:Yesi Modi; You need to quit smoking.; Status:Complete; Done: 15Sep2020 Last Updated By:Benigno Love; 09/15/2020 1:50:18 PM;Ordered; For:SocHx: Current every day smoker; Ordered By:Yesi Modi; MRI (SOS) Referral Diagnostic Diagnostic Status: Need Information - FinancialAuthorization Requested for: 15Sep2020 Ordered;For: Lower back pain; Ordered By: Yesi Modi Performed: Order Comments: Wide [place]ore. Same Day Follow Up Due: 29Sep2020; Last Updated By: Catherine Rodríguez; 09/15/2020 2:25:06 PMPatient will follow up with: : Dr. Modi---same day follow upMRI Ordered Contrast : 01: without gadoLaterality: : _Not Applicable Plan, Assessment and Recommendation(s) Schedule appointment: After further diagnostic testing is completed and a vailable for review. Long discussion reviewing the different treatment conservative options(observation, medication(s), physical therapy, health care assistant, acupuncture, pain clinic, home exercise program, another Orthopedic/spine opinion, additional testing, etc.)--- with pros and cons, potential risks/potential benefits of each option, as well as the chances of successes/failures of each option.Also discussed the option of surgery with pros and cons, risks and benefits as well as the risks of not having surgery. Also discussed the option of getting a second surgical opinion, if desired.At this t yandel, they wish to proceed with:Surgery-lumbar laminectomyNeed updated MRI lumbar spine for preoperative planning This document was dictated and electronically signed using LawBite software. A reasonable attempt at proof reading has been made to minimize errors. Please call with any questions. Signatures Electronically signed by : Yesi Modi M.D.; Sep 15 2020 9:14PM EST (Author) Name Value Range Interpretation Code Description Data [facility] rce(s) Supporting Document(s) ID Date Data Source [id number] 09/13/2020 11:36:[address] [facility] Name Value Range Interpretation Code Description Data [facility] rce(s) Supporting Document(s) &PDF [facility] FSNWBr7fWySPFnRz65/ANKufYPPbg1FeELhpHNt7DEtoQINmO2NizWzwUNdAR5xKDIWTN7UMHFZBHM7f [facility] [file] GIw6LEj6/vocational education professional/FZ6ZECGPMpbDOAgWICG85FyFZBlCVq OjHEGiEsGN+qUz6AKZLYaOHqWYfRWyyED9LAoo4P4/WI/ipztQ4EnlnFbRNmtSkOR+dF8Z8aXty5fhS2 MkBFdmW0D86rFsmrzC1oisU1a3qvWTgDcR6JYvV26BKlQVnV+D2/e84Xm3VgCFCUqVNffMDRQehHBuj7 E5y5iy94o45IZsV3ZAJwtg4r0j6Y1bvK3M69NkuH0E SFifdtN9hRdS7QYPc38Ndm3NjZmoVt8yUFor894O7lBuGLFl5SgKTV+qPEyWHpxhGIZhGMYK+QfBURo1 DHepwqAiiPSwKI5JSxEsDP1cam5YXiQvMHYaHadBQya3MYbcLT7DhFUaS4gKDirgS5ElQ7FvsSufJR7A jPRjRY4JAM7nK7alTeRbEij6l7WtkoSnuPRmnmNxxO X7A9KajC3bH9LbI5LmBGB9fPAlQ4KvjJ8WsQA1cBOnYSSbRTDrS5s5UPW7FT4HUI5jjCxvCkW2Oh4ArU g8PPVaQr9YoXS9URRyJ18jPP6WPh5+QWpuqFOdAR7GXmoM8L75RQJCOt0uRuepZLwxqNGLUVcaxlJWPr wXXCUACLOWILXPTcFOBqcGMEVNMTIJ0CPF8OjbkRXF [file] scheduling clerk/4wT9jjFO9u2ZYAttczn23Ea0Nm3A+20TxDsdCKl38eLJVvpuG+cjjhn6zRAb1iwpwqZYNqr02Jq39 Xx5HpXsExb3pC7nxmaxjhHtyv4jqdi0zZVNNC9l8gEBnc3Rada+13ruCNlefSlPsTkLqo04kp0sbKP8K W/1cDoEu96/uD+LSLutTltRn4hlGKrh5OQ+FeO2fkP qo5m5F4Eb/bovuCfEYpBF6t8Q2un4Id2MZoLiAsPsOhwawXJwfCl81jCMxAKmRw/GMcNQSkwzO6diMkV RWbWFYQ9R8f2cN9RpwW+1XiX9tQpmM+6kqjw1aDe8nGvQHHl1/PdiijjApPJzIHoRv9v1C2+JP2dom3f liOJwVz+TvF+hlIvEQC2CeqkJeAhPr//V/gvOGSyyw 7XCG3ap2QlVTKeCPynuvRuCozRAzC2FVVmg9RjPYp5HM3WBTZfBBtpNF9GL9IeRTL1E8D0KsO9cPVqIX 0uX3WsAcHyLY4hyXclIE0OfUMnOQHiL56eaZ9mIV03SHfoB67rd5UIlTNcDP5WEMHyP2JZS0ElT4ruxK pxDOv8T3mkcJrbqDVnFlFyHATgK6KyOPG9PfYcDlgg wZYzCBhxNcpeuJKIYSYlLUKbDPzpQF1FCRHmvqCyEvLkSCJbLUw+Wi0Go8ZeZULmUVmMfg4uxYstEAWA BQ8e3D/j0DSJMrquZIgh6aZIdSUToNDCuOMLuSrVZsVDrmCnpjp9rcY7kPUF/x5STF67gLqj5pAMkO8q KZLSYOMHKLRSVFZSPOTM7p9rsmgSGVeITKTKYJSYwG rKXprRtxT40rYw9h+n/+L4nSxon0+W9TQHc2GLaMnxr9q3V7mOwHKkK/HDxZINKxTmCmA8vd6i4cYkD9 w0F6AnpjbEfvnGPfqtDRkAEWN2je9FkYnJxzho1n0eXiq22udv324j8kCyQX39zrPvfkR8l/Wdy/e7tk TrHDTHexNCUfSKXX44GOLUNVAQSSBNOEPYKWXTLWTN [file] AgICAgICAgICAgICAgICAgICAgICAgICAgICAgICAgICAgICAgICAgICAgICAgICAgICAgICAgICAgIC AxLIDeBHDkWKHxPZDjZETuBBZzOA3IPMEfKYFfEFJn ICAgICAgICAgICAgICAgICAgICAgICAgICAgICAgICAgICAgICAgICAgICAgICAgICAgICAgICAgICAg GDWhMBAwDAJrQLCqFDWfMGMpAIIzVOJiLNNaYAQlVN3ZXFIpUHLkRVLsJPIqJOVyHYAaATAiEAGgCPGz ICAgICAgICAgICAgICAgICAgICAgICAgICAgICAgIC VdXBAlCZDqDCPjQQQhVJRyHFWdSOFgZWDzGJZiRDFpRRGqJBSgBCKwCE2EHADzDPPhKNGoJFQyGMDhZR AgICAgICAgICAgICAgICAgICAgICAgICAgICAgICAgICAgICAgICAgICAgICAgICAgICAgICAgICAgIC HvNTIyEDWlQNKcPXDbQPNsIUFbCGKzEZ2ZHFSuRCMt ICAgICAgICAgICAgICAgICAgICAgICAgICAgICAgICAgICAgICAgICAgICAgICAgICAgICAgICAgICAg FJOgTGAiPBVvDQKaEVMmGZKmPGUtXXDkRZUlVWDxRPYzAN9XTBZnXKRiDKLoJYGvFFRrJLLwHKLsWQIs ICAgICAgICAgICAgICAgICAgICAgICAgICAgICAgIC NpPALsGOTxLMGhKSCoNHEmESYlYDSbFLWbOEIyCOJiUXIuVCHgXMIxEQVcML4SVXDxQUMtFHOcEBTbQX AgICAgICAgICAgICAgICAgICAgICAgICAgICAgICAgICAgICAgICAgICAgICAgICAgICAgICAgICAgIC QkRVPgEPCrBBBkHHWsOCJtVCGaBIHiFLMfHP7GLLOr ICAgICAgICAgICAgICAgICAgICAgICAgICAgICAgICAgICAgICAgICAgICAgICAgICAgICAgICAgICAg GMLhQJJdBPFrIGSnUKFrWWUiBOMkLCApYESlLEOsMPJmYGEdCH0JIBLeGEUfUREzMIFiBYLxLLSqGEBq ICAgICAgICAgICAgICAgICAgICAgICAgICAgICAgIC DwACXvJUWlIUMfNPUeLMIzHBTaYFUdKINjSCKtWXUvWZUuORRmSIScQYVjGJAtYF0FNVQuJAGiQQVkJB AgICAgICAgICAgICAgICAgICAgICAgICAgICAgICAgICAgICAgICAgICAgICAgICAgICAgICAgICAgIC XvUEKqTNCsQUUvISLjEDTgHWOnESItCBEnZYBeOT1B PA31qGLci2U9AORqIS2vxle/Vs4JBCyxqrGigGHwCX7GDeRcXI3ntu1BXdYpNI5uqy3SLFdBWyVfG4C4 rTHbCVOsDHMWNoDdQ15eLNglOz67TMkkLECjRoLqMIj5Iq6XBwGaK2kiCAPzYiR3GHMbHoM9QKIwFxLb XRwoXV8Uj4FgsKPbPQi+Qy9UBZ0xl8WaYSd9FSDuTV 8zwf5GFYcWXoUjL1D3yPKgQ6F2LJlyDk7OEFPiXPKcXgrpSCSYKXjsMR7HLX9lsqX1OU9MoFDaVNLjQL WvwFQoYCc3O20tsYZvCQzpTT2DZLK+Sapphire+Ej7TFNPjEIEdAGYfCsMtVFJVCiDqV35cdKUbUSAaQSF0WR KyBj3REWItT4HjfaYuqVkebcQqKOJaMIZCXG8TSOwi cgKgsDXxdHfoZX90hNyeNR1POz6TSxOlRV4zzh3JpTAqYz9FWWW1OA5SQHSrOJRxXESgRZA1CJVuNfKs RFquOMMiHOStIMU1XLYkMFWnNP5RPxGaEWUoYvK0XHXtBBFgYZFxld2NRNNePEG3TGqyWqWlRJZaWGId RShnEUUhZTIiHMjgGTSdZIPaFH2SJnFqPQGhELVvTQ FqDODlDRYgkf9GYGKyRKLcDdO3OINeKGCgWIWxKGpgMLKiDIY9VcK7ZHXzEBRqIF0WHgKpFPRiUYG7XF RqPLDyFOZivw5DTMDfGVPlOxv3HjIySWUdQFPtIOazQKLoTHQ6PLC5UUDgDDXzSD3PQmCaRYFqVDrsGK tkZMZsRKVgmu4KCFHvSQBjSADkWGKhDXCkHHFfXHff EFAhRGA8YJFzGFByBHPpTF4SWaMjXDXhIDz1BUglTINjVWZidl4TSGLcOBFxTtK1EGJuKPSbFWHbBEgk QXWjCGZfQvgdJRYhHJZiOT9NLaXuQTTcKLO9DSQzMDJgXKRuzj4SPWDjKCUyHVEdAvIyMEMhPICpUQdy PQGeFSK2IxmrZFEhDNMyQV0IOlOsFTBcQWIlASMxAQ KoCOOani4AGXXzWDGnBTW5MsWgVXUbRVXnWRdoDACaUHJ5IdeqWJXsCWDlBM9PSmOtYRBfJlSyGQTpBP JmZWUaba0PRSRlTWLdJAA8VbNaPDBrNCEyMIqhBEIwPJS3JhQ6DSAkTVHcPQ3WInNjADRdSglbHDKdHY QyQETwla8MUXOdBPXsCBx2CeKeFIOyASQbQWehJCPj BHZeMHzfSMVlPZMwHC2PJwZxXNHvKxS6RrRzJBTqNPBfkw4OBDOuTPFaKJK3XbLfCAWvPFJdKYmeMBOa ZRAjJvE1OGGuFKOgVV3WAfVvEFCsIBH4JBGvUQAkQGLxgc8KVBFsNZC1FCL2GFDcHZPmFATkWWnnGBJd PPXjENY9PSDoZGFxLX3MZaDaECYdUVA2VWdrFBOvWQ Hzjh6EUCJqNPR3DVK4RoXkLYTyPDExYSttCPVaTURtYNFmWYEdVDHePM2JReLaDLHiRhC0NbhvREOnVW Hlqb4HRVMzQNP7MrM0KjRqQDTrCMTdDDevWCXcJJW6BCY7WJQfIGYxKA2RRtLvGVjcVMEMVvo2ILkcJ6 i3GHG3VO6NX9Iel2LqEWXdPZRJBQdkQA0feyDkSZIl Zp7DQ1mOZzmzUEPnMtAoPoLpMca5ZsD1VKIxZwR0LVD2OlJeFUshVX8bIBIlTKJdS3BxAVK0GOM0Qdoz LZClXPqkVAYlDuS9MLIfToQsOU0NGt7LVqC4DAU4wAGrVz0GBeauHTUMObIgHG0BKIc= ID Date Data Source [id number] 06/12/2020 03:04:00 PM EST [facility] Name Value Range Interpretation Code Description Data Simran rce(s) Supporting Document(s) SARS coronavirus 2 RNA [Presence] in Res piratory specimen by ROBERT with probe detection [facility] This lab was ordered by [facility] a nd reported by [facility]. Procedure Social History Code Duration Value Status Description Data Source(s ) Alcohol intake 01/31/2021 12:00:00 AM EDT Current drinker of al cohol (finding) completed Current drinker of alcohol (finding) [facility] Alcohol intake 01/25/2021 12:00:00 AM EDT Current drinker of al cohol (finding) completed Current drinker of alcohol (finding) [facility] Tobacco use and exposure 11/09/2020 12:00:00 AM EDT Never used co mpleted Never used [facility] Cigarette pack-years 11/09/2020 12:00:00 AM EDT UNK completed [facility] Cigarettes smoked current (pack per day) - Reported 11/10/19 12:00:00 AM EDT UNK completed [facility] Smoking 11/09/2020 12:00:00 AM EDT Current every day smoker co mpleted Current every day smoker [facility] Alcohol intake 11/09/2020 12:00:00 AM EDT Current drinker of al cohol (finding) completed Current drinker of alcohol (finding) [facility] Vital Signs ID Date Data Source UNK Name Value Range Interpretation Code Description Data Source(s) Diastolic blood pressure 80 mm[Hg] 80 mm[Hg] [facility] ([facility], ) Body height 68.5 [in_i] 68.5 [in_i] [facility] ([facility], ) 5'8.50" Body weight 305.00 [lb_av] 305.00 [lb_av] [facility] Systolic blood pressure 110 mm[Hg] 110 mm[Hg] M [facility] ([facility]) Heart rate 71 /min 71 /min [facility] ([facility]) Oxygen saturation in Arterial blood by Pulse oximetry 92 % 92 % [facility] ([facility]) Body mass index (BMI) [Ratio] 45.7 kg/m2 45.7 k g/m2 [facility] ([facility]) [place] body weight 154 [lb_av] 154 [lb_av] [facility] Body weight 138.348 kg 138.348 kg [facility] ([facility]) Body surface area Derived from formula 2.46 m2 2.46 m2 [facility] ([facility]) Systolic blood pressure 110 mm[Hg] 110 mm[Hg] [facility] Diastolic blood pressure 83 mm[Hg] 83 mm[Hg] [facility] Heart rate 103 /min 103 /min [facility] Body temperature 37.22 Angie 37.22 Angie [facility] Oxygen saturation in Arterial blood by Pulse oximetry 95 % 95 % [facility] Respiratory rate 16 /min 16 /min [facility] Body height 172.[address] [facility] Body weight 136.[address] [facility] Body mass index (BMI) [Ratio] 45.93 kg/m2 45.93 kg/m2 [facility] Systolic blood pressure 121 mm[Hg] 121 mm[Hg] S [facility] Diastolic blood pressure 56 mm[Hg] 56 mm[Hg] [facility] Heart rate 59 /min 59 /min [facility] Body height 172.[address] [facility] Body weight 136.[address] [facility] Body mass index (BMI) [Ratio] 45.92 kg/m2 45.92 kg/m2 [facility] Oxygen saturation in Arterial blood by Pulse oximetry 93 % 93 % [facility] Systolic blood pressure 114 mm[Hg] 114 mm[Hg] M EDE[facility] ([facility], ) Heart rate 59 /min 59 /min [facility] ([facility], ) Body height 68.5 [in_i] 68.5 [in_i] [facility] ([facility], ) 5'8.50" [place] body weight 154 [lb_av] 154 [lb_av] [facility] Diastolic blood pressure 80 mm[Hg] 80 mm[Hg] [facility] ([facility]) Oxygen saturation in Arterial blood by Pulse oximetry 95 % 95 % [facility] ([facility]) Body weight 304.00 [lb_av] 304.00 [lb_av] [facility] ([facility], ) Body mass index (BMI) [Ratio] 45.5 kg/m2 45.5 k g/m2 [facility] ([facility]) Body weight 137.894 kg 137.894 kg [facility] ([facility], ) Body surface area Derived from formula 2.46 m2 2.46 m2 [facility] ([facility]) Oxygen saturation in Arterial blood by Pulse oximetry 95 % 95 % [facility] ([facility]) Body height 68.5 [in_i] 68.5 [in_i] [facility] ([facility], ) 5'8.50" Body weight 304.00 [lb_av] 304.00 [lb_av] [facility] ([facility]) Body mass index (BMI) [Ratio] 45.5 kg/m2 45.5 k g/m2 [facility] ([facility]) [place] body weight 154 [lb_av] 154 [lb_av] [facility] ([facility]) Body weight 137.894 kg 137.894 kg [facility] ([facility]) Body surface area Derived from formula 2.46 m2 2.46 m2 [facility] ([facility]) Systolic blood pressure 110 mm[Hg] 110 mm[Hg] [facility] Diastolic blood pressure 82 mm[Hg] 82 mm[Hg] [facility] ([facility]) Heart rate 86 /min 86 /min [facility] ([facility]) Oxygen saturation in Arterial blood by Pulse oximetry 93 % 93 % [facility] ([facility]) Body height 68.5 [in_i] 68.5 [in_i] [facility] ([facility]) 5'8.50" Body weight 290.00 [lb_av] 290.00 [lb_av] [facility] Body mass index (BMI) [Ratio] 43.4 kg/m2 43.4 k g/m2 [facility] ([facility]) [place] body weight 154 [lb_av] 154 [lb_av] [facility] Body weight 131.544 kg 131.544 kg [facility] ([facility]) Body surface area Derived from formula 2.41 m2 2.41 m2 [facility] ([facility]) Systolic blood pressure 130 mm[Hg] 130 mm[Hg] [facility] Diastolic blood pressure 88 mm[Hg] 88 mm[Hg] [facility] Heart rate 75 /min 75 /min [facility] Body height 172.[address] [facility] Body weight 133.[address] [facility] Body mass index (BMI) [Ratio] 44.84 kg/m2 44.84 kg/m2 [facility] Oxygen saturation in Arterial blood by Pulse oximetry 92 % 92 % [facility] Diastolic blood pressure 95 mm[Hg] 95 mm[Hg] [facility] ([facility]) Body height 72 [in_i] 72 [in_i] [facility] ([facility]) Body mass index (BMI) [Ratio] 40.6 kg/m2 40.6 k g/m2 [facility] ([facility]) Systolic blood pressure 137 mm[Hg] 137 mm[Hg] A THENA ([facility]) Body weight 299.5 [lb_av] 299.5 [lb_av] [facility] ([facility]) Body height 72 [in_i] 72 [in_i] [facility] ([facility]) 6'0" Body weight 190.00 [lb_av] 190.00 [lb_av] [facility] T ([facility]) Body mass index (BMI) [Ratio] 25.8 kg/m2 25.8 k g/m2 [facility] ([facility]) ID Date Data Source [id number] 04/11/2021 09:48:00 AM EDT [facility] Name Value Range Interpretation Code Description Data Source(s) Weight Measurement Method 8 8 [facility] Weight 4640 4640 [facility] pital Temperature Source 1 1 [facility] Temperature 98 98 [facility] spital Respiratory Effort 1 1 [facility] Respiratory Rate 19 19 [facility] Pulse Assessment Method 4 4 [facility] Pulse Rate 95 95 [facility] pital Height 72 72 [facility] 169/85 169/85 [facility] Weight Measurement Method 8 8 [facility] Weight 4640 4640 [facility] pital Temperature Source 7 7 [facility] Temperature 98.3 98.3 [facility] spital Respiratory Effort 1 1 [facility] Respiratory Rate 20 20 [facility] Pulse Assessment Method 4 4 [facility] Pulse Rate 105 105 [facility] 72 [facility] Blood Pressure 126/69 126/69 [facility] ID Date Data Source [id number] 03/09/2021 10:58:00 AM EDT [facility] Name Value Range Interpretation Code Description Data Source(s) Weight (Calculated Kilograms) 127.14 127.14 [facility] Height (Calculated Centimeters) 180.34 180. 34 [facility] Body Mass Index (BMI) 39.1 39.1 [facility] ID Date Data Source [id number] 04/11/2021 09:39:00 AM EDT [facility] spital Name Value Range Interpretation Code Description Data Source(s) Weight 4800 4800 [facility] pital Temperature Source 7 7 [facility] Temperature 98 98 [facility] spital Respiratory Effort 1 1 [facility] Respiratory Rate 18 18 [facility] Pulse Assessment Method 4 4 [facility] Pulse Rate 85 85 [facility] 140/111 140/111 [facility] Weight 4800 4800 [facility] pital Temperature Source 7 7 [facility] Temperature 98 98 [facility] spital Respiratory Effort 1 1 [facility] Respiratory Rate 18 18 [facility] Pulse Assessment Method 4 4 [facility] Pulse Rate 112 112 [facility] Blood Pressure 133/89 133/89 [facility] Weight 4800 4800 [facility] pital Temperature Source 7 7 [facility] Temperature 98 98 [facility] spital Respiratory Effort 1 1 [facility] Respiratory Rate 18 18 [facility] Pulse Assessment Method 4 4 [facility] Pulse Rate 112 112 [facility] pital ID Date Data Source [id number] 01/31/2021 08:26:00 AM EDT [facility] Name Value Range Interpretation Code Description Data Source(s) Weight (Calculated Kilograms) 127.14 127.14 [facility] Height (Calculated Centimeters) 180.34 180. 34 [facility] Body Mass Index (BMI) 39.1 39.1 [facility] ID Date Data Source [id number] 12/15/2020 12:35:00 AM EDT [facility] Name Value Range Interpretation Code Description Data Source(s) Weight (Calculated Kilograms) 127.14 127.14 [facility] Height (Calculated Centimeters) 180.34 180. 34 [facility] Body Mass Index (BMI) 39.1 39.1 [facility] ID Date Data Source [id number] 02/20/2021 07:24:00 AM EDT [facility] Name Value Range Interpretation Code Description Data Source(s) Weight (Calculated Kilograms) 127.14 127.14 [facility] Height (Calculated Centimeters) 180.34 180. 34 [facility] Body Mass Index (BMI) 39.1 39.1 [facility] ID Date Data Source [id number] 12/22/2020 09:21:00 AM EDT [facility] Name Value Range Interpretation Code Description Data Source(s) Weight (Calculated Kilograms) 127.14 127.14 [facility] Height (Calculated Centimeters) 180.34 180. 34 [facility] Body Mass Index (BMI) 39.1 39.1 [facility] ID Date Data Source [id number] 12/16/2020 08:16:00 AM T [facility] Name Value Range Interpretation Code Description Data Source(s) Weight (Calculated Kilograms) 127.14 127.14 [facility] Weight 4784 4784 [facility] Height (Calculated Centimeters) 180.34 180. 34 [facility] Height 70 70 [facility] Body Mass Index (BMI) 39.1 39.1 [facility] Weight (Calculated Kilograms) 127.14 127.14 [facility] Weight 4784 4784 [facility] Height (Calculated Centimeters) 180.34 180. 34 [facility] Height 70 70 [facility] Body Mass Index (BMI) 39.1 39.1 [facility] ID Date Data Source [id number] 11/29/2020 09:47:00 AM EDT [facility] Name Value Range Interpretation Code Description Data Source(s) Weight (Calculated Kilograms) 127.14 127.14 [facility] Height (Calculated Centimeters) 180.34 180. 34 [facility] Body Mass Index (BMI) 39.1 39.1 [facility] ID Date Data Source [id number] 11/18/2020 07:36:00 AM EDT [facility] Name Value Range Interpretation Code Description Data Source(s) Weight (Calculated Kilograms) 127.14 127.14 [facility] Height (Calculated Centimeters) 180.34 180. 34 [facility] Body Mass Index (BMI) 39.1 39.1 [facility] ID Date Data Source [id number] 07/22/2020 12:33:00 AM EST [facility] Name Value Range Interpretation Code Description Data Source(s) Weight (Calculated Kilograms) 127.14 127.14 [facility] Height (Calculated Centimeters) 180.34 180. 34 [facility] Body Mass Index (BMI) 39.1 39.1 [facility] ID Date Data Source [id number] 05/27/2020 08:06:00 AM EST [facility] Name Value Range Interpretation Code Description Data Source(s) Weight (Calculated Kilograms) 127.14 127.14 [facility] Height (Calculated Centimeters) 180.34 180. 34 [facility] Body Mass Index (BMI) 39.1 39.1 [facility] Weight (Calculated Kilograms) 127.14 127.14 [facility] Height (Calculated Centimeters) 180.34 180. 34 [facility] Body Mass Index (BMI) 39.1 39.1 [facility] Weight (Calculated Kilograms) 127.14 127.14 [facility] Height (Calculated Centimeters) 180.34 180. 34 [facility] Body Mass Index (BMI) 39.1 39.1 [facility] ID Date Data Source [id number] 04/11/2021 09:39:00 AM EDT [facility] Name Value Range Interpretation Code Description Data Source(s) Weight 4656 4656 [facility] pital Height 72 72 [facility] pital Weight Measurement Method 8 8 [facility] Weight 4656 4656 [facility] pital Temperature 97.1 97.1 [place] [facility] spital Respiratory Effort 1 1 [facility] Respiratory Rate 18 18 [facility] Pulse Rate 75 75 [facility]ital Height 72 72 [facility] pital Blood Pressure 148/84 148/84 [facility] Weight Measurement Method 8 8 [facility] Weight 4656 4656 [facility] pital Temperature 97.1 97.1 [place] [facility] sp[facility] Respiratory Effort 1 1 [facility] Respiratory Rate 18 18 [facility] Pulse Rate 75 75 [facility] pital Height 72 72 [facility] pital Blood Pressure 148/84 148/84 [facility] Weight 4656 4656 [facility] pital Respiratory Rate 17 17 [facility] Pulse Rate 80 80 [facility] pital Height 72 72 [facility] pital Weight 4656 4656 [facility] pital Height 72 72 [facility] pital ID Date Data Source [id number] 04/11/2021 09:39:00 AM EDT [place] [facility] Name Value Range Interpretation Code Description Data Source(s) Weight Measurement Method 8 8 [facility] Weight 4480 4480 [facility] pital Temperature Source 7 7 [facility] Temperature 97.4 97.4 [place] [facility] Respiratory Effort 1 1 [facility] Respiratory Rate 18 18 [facility] Pulse Assessment Method 4 4 [facility] Pulse Rate 98 98 [facility] pital Blood Pressure 142/98 142/98 [facility] Weight Measurement Method 8 8 [facility] Weight 4480 4480 [facility] pital Temperature Source 7 7 [facility] Temperature 97.4 97.4 [place] [facility] Respiratory Effort 1 1 [facility] Respiratory Rate 18 18 [facility] Pulse Assessment Method 4 4 [facility] Pulse Rate 98 98 [facility] pital Blood Pressure 142/98 142/98 [facility] ID Date Data Source [id number] 04/11/2021 09:39:00 AM EDT [place] [facility] Name Value Range Interpretation Code Description Data Source(s) Weight Measurement Method 8 8 [facility] Weight 4648 4648 [facility] pital Temperature Source 7 7 [facility] Temperature 100.3 100.3 [place] [facility] Respiratory Effort 1 1 [facility] Respiratory Rate 20 20 [facility] Pulse Assessment Method 4 4 [facility] Pulse Rate 141 141 [facility] pital Height 72 72 [facility] pital Blood Pressure 128/80 128/80 [facility] Weight Measurement Method 8 8 [facility] Weight 4648 4648 [facility] pital Temperature Source 7 7 [facility] Temperature 100.3 100[facility] Res[facility] Effort 1 1 [facility] Respiratory Rate 20 20 [facility] Pulse Assessment Method 4 4 [facility] Pulse Rate 141 141 [facility] pital Height 72 72 [facility] pital Blood Pressure 128/80 128/80 [facility] ID Date Data Source [id number] 04/11/2021 09:39:00 AM EDT [facility] Name Value Range Interpretation Code Description Data Source(s) Weight Measurement Method 8 8 [facility] Weight 4560 4560 [facility] pital Temperature Source 1 1 [facility] Temperature 98.8 98.8 [facility] Respiratory Effort 1 1 [facility] Respiratory Rate 20 20 [facility] Pulse Assessment Method 4 4 [facility] Pulse Rate 133 133 [facility] pital Height 72 72 [facility] pital Blood Pressure 126/98 126/98 [facility] Weight Measurement Method 8 8 [facility] Weight 4560 4560 [facility] pital Temperature Source 7 7 [facility] Temperature 98.2 98.2 [place] [facility] spital Respiratory Effort 1 1 [facility] Respiratory Rate 20 20 [facility] Pulse Assessment Method 4 4 [facility] Pulse Rate 123 123 [facility] pital Height 72 72 [facility] pital Blood Pressure 125/68 125/68 [facility] Weight Measurement Method 8 8 [facility] Weight 4560 4560 [facility] pital Temperature Source 7 7 [facility] Temperature 98.2 98.2 [facility] Respiratory Effort 1 1 [facility] Respiratory Rate 22 22 [facility] Pulse Assessment Method 4 4 [facility] Pulse Rate 113 113 [facility] pital Height 72 72 [facility] pital Blood Pressure 130/100 130/100 [facility] Weight Measurement Method 8 8 [facility] [facility] Weight 4560 4560 [facility] pital Temperature Source 7 7 [facility] Temperature 98.2 98.2 [facility] Res[facility] Effort 1 1 [facility] Respiratory Rate 22 22 [facility] Pulse Assessment Method 4 4 [facility] Pulse Rate 113 113 [facility] pital Height 72 72 [facility] pital Blood Pressure 130/100 130/100 [facility] Weight Measurement Method 8 8 [facility] Weight 4560 4560 [facility] pital Temperature Source 7 7 [facility] Temperature 98.2 98.2 [facility] Respiratory Effort 1 1 [facility] Respiratory Rate 22 22 [facility] Pulse Assessment Method 4 4 [facility] Pulse Rate 113 113 [facility] pital Height 72 72 [facility] pital Blood Pressure 130/100 130/100 [facility] Weight Measurement Method 8 8 [facility] Weight 4560 4560 [facility] pital Temperature Source 7 7 [facility] Temperature 98.2 98.2 [facility] Respiratory Effort 1 1 [facility] Respiratory Rate 22 22 [facility] Pulse Assessment Method 4 4 [facility] Pulse Rate 113 113 [facility] pital Height 72 72 [facility] pital Blood Pressure 130/100 130/100 [facility] Patient Treatment Plan of Care Planned Activity Planned Date Details Description Data Source (s) rivaroxaban 15 MG Oral Tablet 02/06/2021 12:00:[address] [facility] Oxycodone Hydrochloride 15 MG Oral Tablet 02/03/2021 12:00:[address] [facility] oxyCODONE (ROXICODONE) immediate release tablet 15 mg 01/31/2021 11:01:59 AM EDT [facility] Bisacodyl 10 MG Rectal Suppository 01/31/2021 12:00:[address] [facility] Hydroxyzine Hydrochloride 25 MG Oral Tablet 01/30/2021 09:00:[address] [facility] Nitroglycerin 0.4 MG Sublingual Tablet 01/30/2021 04:44:[address] [facility] Ondansetron 4 MG Disintegrating Oral Tablet 01/30/2021 04:44:[address] [facility] ondansetron (ZOFRAN) injection 4 mg 01/30/2021 04:44:[address] [facility] Mineral Oil 1000 MG/ML Enema 01/30/2021 04:44:[address] [facility] Calcium Carbonate 500 MG Chewable Tablet 01/30/2021 04:44:[address] [facility] Benzocaine 6 MG / Menthol 10 MG Oral Lozenge 01/30/2021 04:44:[address] [facility] Mupirocin 0.02 MG/MG Topical Ointment 01/25/2021 12:00:[address] [facility] rivaroxaban [address] [facility] Daily Gabriel (THERAGRAN) per tablet [facility] 1 ML Enoxaparin sodium 150 MG/ML Prefilled Syringe [facility] pantoprazole 40 MG Delayed Release Oral Tablet [facility] Sucralfate [address] [facility] Spironolactone [address] [facility] Acetaminophen 325 MG / Oxycodone Hydrochloride [address] [facility] Sucralfate 100 MG/ML Oral Suspension PLACIDO ([facility]) Prednisone 20 MG Oral Tablet PLACIDO ([facility]) pantoprazole 40 MG Delayed Release Oral Tablet PLACIDO ([facility]) Acetaminophen 325 MG / Oxycodone Hydrochloride 7.5 MG Oral Tablet PLACIDO ([facility]) Acetaminophen 325 MG / Oxycodone Hydrochloride 5 MG Oral Tablet PLACIDO ([facility]) Oxycodone Hydrochloride 5 MG Oral Tablet PLACIDO ([facility]) Nitroglycerin 0.4 MG Sublingual Tablet PLACIDO ([facility]) Lisinopril 40 MG Oral Tablet PLACIDO ([facility]) Hydroxyzine Hydrochloride 25 MG Oral Tablet PLACIDO ([facility]) gabapentin 300 MG Oral Tablet [Gralise] PLACIDO ([facility]) Colchicine 0.6 MG Oral Tablet PLACIDO ([facility]) albuterol sulfate HFA 90 mcg/actuation aerosol inhaler PLACIDO ([facility])
[2021-04-25] MEDS ORDERED: HYDR-3713 PO (15:28)
[2021-04-25] MEDS ORDERED: PERCOCET 5MG/325MG TAB PO ONE ×2 (15:45→16:00)
[2021-04-25] MEDS ORDERED: PERC5TAB12 PO (16:45)
[2021-04-25] MEDS ORDERED: MORPHINE 2 MG/ML 1ML VIAL (J2270) IM ONE (17:30)
--- NOTE | 2021-04-25 17:44 | HPE ---
HISTORY AND PHYSICAL DATE OF ADMISSION: 04/25/2021 CHIEF COMPLAINT: Left midshaft humerus fracture. HISTORY OF PRESENT ILLNESS: This patient was consulted to me by Dr. Trini Sánchez at approximately 2:25 p.m. today. The patient presented to the emergency department after a ground-level fall and FOOSH, upper extremity pain. A CT of the head was negative. No other injuries. MEDICAL HISTORY: Per Dr. Sánchez, includes: 1. Obstructive sleep apnea (DEYSI). 2. Atrial fibrillation, on Xarelto. 3. Hypertension. 4. Morbid obesity. Patient was using alcohol at the time of the injury. PHYSICAL EXAMINATION: This is a closed, neurovascularly intact injury, according to the QMP. Radiographs were reviewed of the elbow that showed no acute injury. Radiographs of the humerus demonstrated a short oblique, relatively midshaft fracture that appears widely displaced. ASSESSMENT AND PLAN: This 65-year-old man with a complex medical history, including atrial fibrillation, on Xarelto, with a widely displaced left midshaft humerus fracture. His options would be nonoperative management in a sugar-tong splint followed by Abarcamichael burnett verus open reduction, internal fixation with plate fixation. This is complicated by the fact that he is on anticoagulation. After a discussion with Dr. Sánchez, decision was made to have outpatient followup early this week to discuss his options and in the meantime place him in a sugar-tong type splint with either cuff and collar or sling for pain control. It sounds like the patient does have some supports at home with his . Myself and Dr. Sánchez are in agreement with the plan, and if anything changes she will reach out and let me know, but for now the plan is to followup as an outpatient this week to discuss options.
== END 2021-04-25 18:25 | disposition home or self-care (01) ==
LOC: EDBD 12:58 → M ED 12:58
DX: S42.332A Displaced oblique fracture of shaft of humerus, left arm, initial encounter for closed fracture (principal); W18.39XA Other fall on same level, initial encounter; Y92.018 Other place in single-family (private) house as the place of occurrence of the external cause; I12.9 Hypertensive chronic kidney disease with stage 1 through stage 4 chronic kidney disease, or unspecified chronic kidney disease; N18.9 Chronic kidney disease, unspecified; I48.91 Unspecified atrial fibrillation; G47.33 Obstructive sleep apnea (adult) (pediatric); K74.69 Other cirrhosis of liver; M10.9 Gout, unspecified; E66.8 Other obesity; Z79.899 Other long term (current) drug therapy; Z79.01 Long term (current) use of anticoagulants; F17.210 Nicotine dependence, cigarettes, uncomplicated
CPT/HCPCS: 29105; 70450; 73030; 73060; 73080; 96372; 99284; J2270

== ENCOUNTER 2021-05-05 13:02 | Inpatient (IN) | payer MEDICARE ==
[~2021-05-05] VITALS: Ht 182.9 cm; Wt 151.8 kg
[~2021-05-05 13:02] MED LIST changes: -ALBU8.5H; +ALBU8.5H INH; +HYDR-3713 PO; +LIDOCAINE 2% 100MG/5ML SDV (FOR ANES.) As Ordered ONE; +MIDAZOLAM INJ 2MG/2ML VIAL (J2250 PER 1MG) As Ordered ONE; +ONDANSETRON 4MG/2ML VIAL As Ordered ONE; +PERC5TAB12 PO; +PHENYLephrine 500MCG 5ML (100MCG/ML) SYRINGE As Ordered ONE; +ROCURONIUM BROMIDE 50 MG/5 ML VIAL As Ordered ONE; +SUGAMMADEX SODIUM 500 MG/5 ML VIAL (BRIDION) As Ordered ONE; +dexameTHASONE 4 MG/ML 1ML VIAL (J1100 PER 1MG) As Ordered ONE; +ePHEDrine SULFATE 25 MG/5 ML(5MG/ML) SYRINGE As Ordered ONE; +fentaNYL 250 MCG/5 ML INJECTION (J3010) As Ordered ONE; +propofoL 200 MG/20 ML VIAL As Ordered ONE
[2021-05-05] MEDS ORDERED: propofoL 200 MG/20 ML VIAL As Ordered ONE (16:30)
[2021-05-05] MEDS ORDERED: SUGAMMADEX SODIUM 500 MG/5 ML VIAL (BRIDION) As Ordered ONE (16:30)
[2021-05-05] MEDS ORDERED: ROCURONIUM BROMIDE 50 MG/5 ML VIAL As Ordered ONE ×3 (16:30→20:06)
[2021-05-05] MEDS ORDERED: TRANEXAMIC ACID 100 MG/ML 10ML VIAL As Ordered ONE ×5 (16:35→21:16)
[2021-05-05] MEDS ORDERED: ceFAZolin 2 GM/D5W 50 ML IV BAG (J0690 PER 500MG) As Ordered ONE (17:17)
[2021-05-05] MEDS ORDERED: ceFAZolin 1GM VIAL (J0690 PER 500MG) As Ordered ONE ×2 (17:18→21:13)
[2021-05-05] MEDS ORDERED: ceFAZolin SOD 2 GM in IV 1 EA IV ONE (17:30)
[2021-05-05] MEDS ORDERED: ceFAZolin SOD 1 GM in D5W MINI-BAG PLUS 50 ML IV ONE (17:30)
[2021-05-05] MEDS ORDERED: BUPIVACAINE HCL 0.25% 30ML VIAL As Ordered ONE (17:47)
[2021-05-05] MEDS ORDERED: ACETAMINOPHEN 1000MG 100ML IV BTL (OFIRMEV) (J0131 PER 10MG) As Ordered ONE (18:16)
[2021-05-05] MEDS ORDERED: VANCOMYCIN 1000MG/20ML VIAL As Ordered ONE ×2 (21:01→21:13)
--- NOTE | 2021-05-05 21:58 | REPVR ---
PROCEDURE INFORMATION: Exam: FL Fluoroscopy, Up to 1 Hour Physician Time; Radiologist Not Present For Fluoroscopy Exam date and time: 05/05/2021 9:18 PM Age: 65 years old Clinical indication: Symptoms: Humeral intramedullary nail insertion; Additional info: Left orif, humeral intramedullary nail insertional TECHNIQUE: Imaging protocol: Fluoroscopy , up to 1 hour physician or other qualified health health care specialist time. This radiologist did not supervise this procedure. Exam supervised by facility personnel. Report for radiation dosage reporting and documentation only. COMPARISON: No relevant prior studies available. RADIATION DOSE METRICS: Fluoroscopy time (seconds): 58.9 seconds Number of fluoro spot images: 15 Reference air kerma (SIRENA): Not provided. FINDINGS: Procedural imaging: The submitted images demonstrate a long bone which is apparently the humerus. There is a ventral placement of a metallic plate across the site of fracture with several screws affixing the plate and an additional screw which does not cross the plate but apparently crosses the site of fracture. Notes: Fluoroscopy supervised by facility personnel. See also separate procedure report. IMPRESSION: Fluoroscopy dosage documentation. See also separate procedure notes. Electronically signed by: Colton Hood On 05/05/2021 21:57:57 PM
[2021-05-05] MEDS ORDERED: LABETALOL 100MG/20ML VIAL As Ordered ONE (22:45)
[2021-05-05] MEDS ORDERED: METOCLOPRAMIDE INJ 10MG/2ML VIAL (J2765 PER 1) IV PRN (23:00)
[2021-05-05] MEDS ORDERED: fentaNYL 100 MCG/2 ML INJECTION (J3010) IV PRN (23:00)
[2021-05-05] MEDS ORDERED: ONDANSETRON 4MG/2ML VIAL IV PRN (23:00)
[2021-05-05] MEDS ORDERED: oxyCODONE 5MG TAB PO PRN (23:00)
[2021-05-05] MEDS ORDERED: LR 1,000 ML IV SCH (23:00)
[2021-05-05] MEDS ORDERED: ALBUTEROL SULFATE 2.5 MG/0.5 ML INH NEB SOLN INH ONE (23:15)
[2021-05-05] MEDS ORDERED: FUROSEMIDE 20MG/2ML VIAL (J1940) IV ONE (23:25)
[2021-05-05] MEDS ORDERED: FUROSEMIDE 20MG/2ML VIAL (J1940) As Ordered ONE (23:28)
[2021-05-05] MEDS ORDERED: FUROSEMIDE 100MG/10ML VIAL (J1940) As Ordered ONE (23:28)
[2021-05-05 23:34] LABS: HEMOGLOBIN 9.9 g/dl (13.5-17.5); MEAN CORPUSCULAR HEMOGLOBIN 31.2 pg (27.0-33.0); MEAN CORPUSCULAR HGB CONC 30.9 g/dl (32.0-36.5); MEAN CORPUSCULAR VOLUME 100.9 fl (80.0-96.0); PLATELET COUNT, AUTOMATED 179 10^3/uL (150-450); RED BLOOD COUNT 3.17 10^6/uL (4.30-6.10); WHITE BLOOD COUNT 9.4 10^3/uL (4.0-10.0)
--- NOTE | 2021-05-05 23:36 | REPVR ---
PROCEDURE INFORMATION: Exam: XR Left Hand Exam date and time: 05/05/2021 11:22 PM Age: 65 years old Clinical indication: Swelling; Hand; Left; Additional info: L hand swelling and pain TECHNIQUE: Imaging protocol: XR Left hand. Views: 1 or 2 views. COMPARISON: CR Elbow, complete LEFT 04/25/2021 1:52 PM FINDINGS: Bones/joints: No acute fracture or dislocation. Soft tissues: Diffuse soft tissue swelling of the hand and distal forearm extending into the proximal fingers. IMPRESSION: 1. Diffuse soft tissue swelling. 2. Otherwise negative limited left hand. Electronically signed by: Colton Hood On 05/05/2021 23:36:02 PM
[2021-05-06] VITALS (17 sets, daily range): BP systolic 118–162; BP diastolic 57–84; O2SAT 89–97
[2021-05-06] MEDS ORDERED: MORPHINE 1MG/ML IN 0.9% NACL 100ML IV BAG As Ordered ONE (00:16)
[2021-05-06] MEDS ORDERED: NALOXONE INJ 0.4MG/1ML VIAL (J2310 PER 1MG) IV PRN (00:20)
[2021-05-06] MEDS ORDERED: NS 1,000 ML IV SCH (00:20)
[2021-05-06] MEDS ORDERED: ONDANSETRON 4MG/2ML VIAL IV PRN (00:20)
[2021-05-06] MEDS ORDERED: diphenhydrAMINE 50MG/ML VIAL (J1200) IV PRN (00:20)
[2021-05-06] MEDS ORDERED: EPIDURAL/PCA KEYS XX PRN (00:20)
[2021-05-06] MEDS ORDERED: MOM 30ML SUSPENSION UDC PO PRN (00:25)
[2021-05-06] MEDS ORDERED: LORazepam 2 MG TAB PO PRN (00:25)
--- NOTE | 2021-05-06 00:54 | HPEPDOC ---
[facility] Medical History & Physical Date of Admission May 06, 2021 Date of Service: May 06, 2021 Attending Physician: TIFFANIE ARANA MD History and Physical CHIEF COMPLAINT: [65 y/o male transferred from [facility] for orif of left humeral fracture] HISTORY OF PRESENT ILLNESS: [This is a 65 y/o male with a pmh of a-fib on xarelto, htn, liver cirrhosis, copd, gout, fatou who does not wear cpap and obesity who was originally seen in our ED on 04/25 after he suffered a fall and was subsequently diagnosed with a left humeral fracture. At that time, it was decided that patient was safe to go home with a splint on his arm and follow up for outpatient surgery. Before that could happen, he presented to [facility] and was found to be hyponatremic with elevated white count and was admitted for workup and treatment as well as pain control. During his stay with [facility], he developed persistent severe left arm pain and edema. A duplex us of the extremity showed a large hematoma had formed. At this time, hospital physicians at [facility] reached out to one of our orthopedic surgeons, Dr. Hernandez, for recommendations and who facilitated transfer to us for urgent surgical intervention. I saw patient in the PACU on 05/06 after patient underwent ORIF of left humeral fracture with left humeral intramedullary nail insertion. He is alert but still somewhat groggy from anesthesia and agitated secondary to pain. He tells me that other than the pain in his arm, he has been feeling mostly well. Patient denies any chest pain, palpitations, sob, wheezing, abd pain, n/v/d/c, dysuria, pedal edema, paresthesias. While in pacu, patient developed some acute hypoxia requiring 3L nasal cannula, tachycardia up to 120s.] PAST MEDICAL HISTORY: 1. [See HPI PAST SURGICAL HISTORY: 1. [Colonoscopy]. 2. [Endoscopy]. 3. [B/l total hip arthroplasties 4. Unspec. b/l knee surgeries]. SOCIAL HISTORY: Tobacco use:[Former smoker. States that he quit yesterday] ETOH: [Admits to drinking one pint of bourbon per week] Illicit drug use: [Occasional marijuana] FAMILY HISTORY: Reviewed - none pertinent ALLERGIES: Please see below. REVIEW OF SYSTEMS: CONSTITUTIONAL: [Denies fevers, chills]. HEENT: [Denies uri sx]. CARDIOVASCULAR: [Denies chest pain, palpitations]. RESPIRATORY: [Denies sob, wheezing]. GASTROINTESTINAL: [Denies abd pain, n/v/d/c]. GENITOURINARY: [Denies dysuria]. SKIN: [Denies rash]. MUSCULOSKELETAL: [See HPI]. NEUROLOGICAL: [Denies syncope, paresthesias]. ENDOCRINE: [Denies hx of dm]. HEMATOLOGIC/LYMPHATIC: [Hx of dvt]. HOME MEDICATIONS: Please see below. PHYSICAL EXAMINATION: VITAL SIGNS: Please see below. GENERAL APPEARANCE: [Overweight 65 y/o male resting in bed in PACU. His left arm is in a sling. Patient is somnolent but easily arousable. He does not appear to be in any acute distress]. HEENT: [No mass or lesion. EOMI. No scleral icterus. Nares patent. Voice hoarse. Oral mucosa moist]. CARDIOVASCULAR: [Tachy rate, irregularly irregular rhythm. No murmurs, rubs, gallops]. LUNGS: [Decreased breath sounds throughout. No wheezing, rales, rhonchi]. ABDOMEN: [Soft, nontender]. MUSCULOSKELETAL: [Left upper extremity in a sling. The arm is noted to be diffusely edematous and ecchymotic. No palpation or manual manipulation of the limb is attempted by me]. EXTREMITIES: [No pedal edema appreciated. No overlying skin changes. Pulses intact]. NEUROLOGICAL: [Speech clear. A+Ox3. No focal deficits]. PSYCHIATRIC: [Mood and affect appear appropriate]. LABORATORY DATA: See below. IMAGING: [Hand XR: FINDINGS: Bones/joints: No acute fracture or dislocation. Soft tissues: Diffuse soft tissue swelling of the hand and distal forearm extending into the proximal fingers. IMPRESSION: 1. Diffuse soft tissue swelling. 2. Otherwise negative limited left hand. ] MICROBIOLOGY: Please see below. ASSESSMENT: [This is a 65 y/o male with a pmh of a-fib on xarelto, htn, liver cirrhosis, copd, gout, fatou who does not wear cpap and obesity who was originally seen in our ED on 04/25 after he suffered a fall and was subsequently diagnosed with a left humeral fracture. Before outpatient repair, patient admitted to [facility] for management of electrolyte abnormalities. During his stay there, developed a large hematoma and severe pain in the left upper extremity. Patient transferred here for surgical intervention. [facility]]. . PLAN: 1. [Left humeral fx - S/p orif with orthopedics - begin morphine quality control expert for pain control - bowel regimen - surgical f/u per ortho - admit to pcu 2. A-fib - pt had transient episode of rvr while in the pacu most likely 2/2 pain - will place pt on tele and monitor rate - continue at home metoprolol - will continue to hold xarelto for now, will ask day team to coordinate with ortho when it is safe to restart anticoagulation 3. Alcoholic liver cirrhosis - pt continues to drink, will place them on ciwa protocol - will check ammonia level - liver enzymes showing 2:1 ast:alt ratio, typical of alcoholic liver dz 4. COPD - pt requiring oxygen at this time, however this is more likely secondary to anesthesia - will continue o2 titrated to 88-92 - monitor - continue at home inhalers 5. CKD - cr at baseline 6. HTN - continue amlodipine, lasix, spironolactone 7. Gout - continue allopurinol DVT prophylaxis - mechanical for now]. Vital Signs Vital Signs Date Time Temp Pulse Resp B/P (MAP) Pulse Ox O2 Delivery O2 Flow Rate FiO2 05/06/21 00:27 95 24 130/78 (95) 100 Nasal Cannula 2.0 05/06/21 00:04 97.5 Laboratory Data Labs 24H Laboratory Tests 2 05/05/21 23:23: Nucleated Red Blood Cells % (auto) 0.0 CBC/BMP Laboratory Tests 05/05/21 23:23 Home Medications Scheduled Allopurinol (Allopurinol) 100 Mg Tablet, 100 MG PO DAILY Amlodipine Besylate (Amlodipine Besylate) 10 Mg Tablet, 10 MG PO DAILY Folic Acid (Folic Acid) 1 Mg Tablet, 1 MG PO DAILY Furosemide (Furosemide) 40 Mg Tablet, 40 MG PO DAILY Metoprolol Tartrate (Metoprolol Tartrate) 25 Mg Tablet, 25 MG PO TID Potassium Chloride (Potassium Chloride) 10 Meq Tab.er.prt, 10 MEQ PO DAILY Rivaroxaban (Xarelto) 15 Mg Tablet, 15 MG PO DAILY Spironolactone (Spironolactone) 25 Mg Tablet, 25 MG PO DAILY Scheduled PRN Albuterol Sulfate (Albuterol Sulfate Hfa) 8.5 Gm Hfa.aer.ad, 2 PUFFS INH QID PRN for SHORTNESS OF BREATH Nitroglycerin (Nitroglycerin) 0.4 Mg Tab.subl, 0.4 MG SL NITRO PRN for CHEST PAIN Oxycodone HCl/Acetaminophen (Oxycodone-Acetaminophen 10-325) 1 Each Tablet, 1 TAB PO TID PRN for PAIN Oxycodone HCl/Acetaminophen (Percocet 5-325 mg Tablet) 1 Each Tablet, 1 TAB PO Q6H PRN for PAIN Zolpidem Tartrate (Zolpidem Tartrate) 10 Mg Tablet, 10 MG PO QHS PRN for SLEEP Allergies Coded Allergies: No Known Allergies (Unverified , 05/02/21) A-FIB/CHADSVASC A-FIB History Current/History of A-Fib/PAF?: Yes Current PO Anticoag Therapy: Yes Attending Note Attending Note TIME OF SERVICE 1205AM is a 65 yr old M w a hx of A fib, COPD, CKD and liver disease who had a left humus shaft fx that was initially managed conservatively but the patient developed a hematoma and underwent urgent surgery yesterday. At the time of my assessment he appeared to be in pain and his left arm was wrapped in clean and dry dressings with a wound vac and BOUBACAR drain. We will admit him to our service, control his pain w a MEDICAL GENETICS DIRECTOR pump, monitor for alcohol w/d and infection. Rest per ROSI Gilliam's H&P DARRIUS GILLIAM May 06, 2021 00:54 TIFFANIE ARANA MD May 06, 2021 05:11
[2021-05-06] MEDS ORDERED: MIRALAX *UNIT DOSE* 17GM PACKET PO PRN (01:00)
[2021-05-06] MEDS ORDERED: ALBUTEROL 90 MCG/ACT 8GM HFA INHALER INH PRN (01:00)
[2021-05-06] MEDS ORDERED: NITROGLYCERIN 0.4 MG SUBL TABLET SL PRN (01:00)
[2021-05-06 01:09] LABS: HEMATOCRIT 30.5 % (42.0-52.0); HEMOGLOBIN 9.6 g/dl (13.5-17.5); MEAN CORPUSCULAR HEMOGLOBIN 31.8 pg (27.0-33.0); MEAN CORPUSCULAR HGB CONC 31.5 g/dl (32.0-36.5); PLATELET COUNT, AUTOMATED 175 10^3/uL (150-450); RED BLOOD COUNT 3.02 10^6/uL (4.30-6.10); WHITE BLOOD COUNT 14.8 10^3/uL (4.0-10.0)
--- OUTSIDE RECORDS SUMMARY | 2021-05-06 01:20 | CCD | Continuity of Care Document ---
Author Author Sebastian HERNANDEZ MD Organization Unknown Address [address] , [facility] [place] [address] Phone [phone] Care Team Providers Care Bag Repairer Name Role Phone Reynold Ray M.D. AUTM [phone] Natanael Rosales M.D AUTM [phone] AUTM Unavailable Sdio AUTM [phone] AUTM Unavailable Problems Active Problems Provider Date Essential hypertension [...] 1/2ppd Recreational Drug Use Current Drug User Marijuan a Smoking Status Reviewed: 12/15/20 Patient is a current smoker, smokes every day 1-2 cigs qd hx 1 - 1 1/2ppd Allergies and adverse reactions Description No Known Drug Allergies Medications Active [...] every 4 hours as needed reference #: [id number] 30tabs Reynold Phipps MD 12/26/2020 - 12/30/2020 Immunizations Description No Information Available Vital Signs Date Vital Result Comment 04/27/2021 1:52pm Body Temperature 96.8 F 04/04/2021 1:32pm BP Systolic 110 mmHg BP Diastolic 80 mmHg Heart Rate 71 /min O2 % BldC Oximetry 92 % Height 68.5 inches 5'8.50" Weight 305.00 lb BMI (Body Mass Index) 45.7 kg/m2 [place] Body Weight 154 lb Weight 138.348 kg BSA (Body Surface Area) 2.46 m2 Results Test Acquired Date Facility Test Result H/L Range Note Laboratory test finding 12/26/2020 [facility] Main [facility] [address] [place], [place] [id number] [phone] Pathology Request For Service (SEE NOTE) 1 1 FINAL DIAGNOSIS 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 12/27/2020 - 1016 CLINICAL DIAGNOSIS Left laryngeal lesion 12/26/2020 - 1537 GROSS DIAGNOSIS Received in formalin labeled "left laryngeal biopsy" and consists of multiple fragments of tissue, 2 x 2 x 0.2 cm in aggregate. All in one. -OA 12/26/2020 - 1537 Signed MATHEW SHIELDS MD 12/27/2020 1018 Procedures Date Code Description Status 04/27/2021 11438 Office/Outpatient New Moderate M DM 45-59 Minutes Completed 04/27/2021 32870 Office/Outpatient New Moderate M DM 45-59 Minutes Completed 01/03/2021 20698 Office/Outpatient Established Mo d MDM 30-39 Min Completed 12/26/2020 80839 Laryngoscopy Direct Biopsy W/Ope rating Microscope Completed 12/15/2020 26485 Office/Outpatient New Moderate M DM 45-59 Minutes Completed 12/15/2020 20591 Laryngoscopy Flexible Fiberoptic Diagnostic Completed Medical Devices Description No Information Available Encounters Type Date Location Provider Dx Diagnosis Office Visit 04/27/2021 2:15p [facility] Wayne lynch MD S42.302A Unsp fracture of shaft of humerus, left arm, init Office Visit 01/03/2021 10:00a [facility] Pravin Grace 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 [facility] Closed [address] [place] [id number] [phone]
--- OUTSIDE RECORDS SUMMARY | 2021-05-06 01:20 | CCD | Continuity of Care Document ---
Author Author Sebastian HERNANDEZ MD Organization Unknown Address [address] , [facility] [place] [address] Phone [phone] Care Team Providers Care Restaurant Area Director Name Role Phone Reynold Ray M.D. AUTM [phone] Natanael Rosales M.D AUTM [phone] AUTM Unavailable Sdio AUTM [phone] AUTM Unavailable Problems Active Problems Provider Date [...] every 4 hours as needed reference #: [id number] 30tabs Reynold Phipps MD 12/26/2020 - 12/30/2020 Immunizations Description No Information Available Vital Signs Date Vital Result Comment 04/27/2021 1:52pm Body Temperature 96.8 F 04/04/2021 1:32pm BP Systolic 110 mmHg BP Diastolic 80 mmHg Heart Rate 71 /min O2 % BldC Oximetry 92 % Height 68.5 inches 5'8.50" Weight 305.00 lb BMI (Body Mass Index) 45.7 kg/m2 [place] Body Weight 154 lb Weight 138.348 kg BSA (Body Surface Area) 2.46 m2 Results Test Acquired Date Facility Test Result H/L Range Note Laboratory test finding 12/26/2020 [facility] Main Lab [address] [place], [place] [id number] [phone] Pathology Request For Service (SEE NOTE) 1 [...] 1018 Procedures Date Code Description Status 04/27/2021 18329 Office/Outpatient New Moderate M DM 45-59 Minutes Completed 01/03/2021 32889 Office/Outpatient Established Mo d MDM 30-39 Min Completed 12/26/2020 69506 Laryngoscopy Direct Biopsy W/Ope rating Microscope Completed 12/15/2020 42685 Office/Outpatient New Moderate M DM 45-59 Minutes Completed 12/15/2020 53966 Laryngoscopy Flexible Fiberoptic Diagnostic Completed Medical Devices Description No Information Available Encounters Type Date Location Provider Dx Diagnosis Office Visit 01/03/2021 10:00a [facility] Pravin Grace 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 [facility] Closed [address] [address] [phone]
--- OUTSIDE RECORDS SUMMARY | 2021-05-06 01:20 | CCD | Continuity of Care Document ---
Author Author Sebastian HERNANDEZ MD Organization Unknown Address [address] , [facility] [place] [address] Phone [phone] Care Team Providers Care Ground Equipment Mechanic Name Role Phone Reynold Ray M.D. AUTM [phone] Natanael Rosales M.D AUTM [phone] AUTM Unavailable Sdio AUTM [phone] AUTM Unavailable Problems Active Problems Provider Date [...] every 4 hours as needed reference #: [id number] 30tabs Reynold Pihpps MD 12/26/2020 - 12/30/2020 Immunizations Description No Information Available Vital Signs Date Vital Result Comment 04/27/2021 1:52pm Body Temperature 96.8 F 04/04/2021 1:32pm BP Systolic 110 mmHg BP Diastolic 80 mmHg Heart Rate 71 /min O2 % BldC Oximetry 92 % Height 68.5 inches 5'8.50" Weight 305.00 lb BMI (Body Mass Index) 45.7 kg/m2 [place] Body Weight 154 lb Weight 138.348 kg BSA (Body Surface Area) 2.46 m2 Results Test Acquired Date Facility Test Result H/L Range Note Laboratory test finding 12/26/2020 [facility] [address] [place], [place] [id number] [phone] Pathology Request For Service (SEE NOTE) 1 [...] 1018 Procedures Date Code Description Status 04/27/2021 83152 Office/Outpatient New Moderate M DM 45-59 Minutes Completed 01/03/2021 29727 Office/Outpatient Established Mo d MDM 30-39 Min Completed 12/26/2020 00778 Laryngoscopy Direct Biopsy W/Ope rating Microscope Completed 12/15/2020 91545 Office/Outpatient New Moderate M DM 45-59 Minutes Completed 12/15/2020 59975 Laryngoscopy Flexible Fiberoptic Diagnostic Completed Medical Devices Description No Information Available Encounters Type Date Location Provider Dx Diagnosis Office Visit 01/03/2021 10:00a [facility] Pravin Grace 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 [facility] Closed [address] [address] [phone]
[2021-05-06 01:23] LABS: ALBUMIN 2.6 GM/DL (3.2-5.2); ALT/SGPT 21 U/L (12-78); BILIRUBIN,TOTAL 1.1 MG/DL (0.2-1.0); BLOOD UREA NITROGEN 23 MG/DL (7-18); CALCIUM LEVEL 8.3 MG/DL (8.8-10.2); CARBON DIOXIDE LEVEL 32 MEQ/L (21-32); CHLORIDE LEVEL 94 MEQ/L (98-107); CK-MB VALUE MASS 1.9 NG/ML (<3.6); CPK CREATINE PHOSPHOKINASE 175 U/L (39-308); CREATININE FOR GFR 1.46 MG/DL (0.70-1.30); GLOMERULAR FILTRATION RATE 51.4 (>49); GLUCOSE, FASTING 165 MG/DL (70-100); MAGNESIUM LEVEL 1.5 MG/DL (1.8-2.4); MB/CK RELATIVE INDEX 1.09 (< OR =4); NT-PRO BNP 494 PG/ML (<125); POTASSIUM SERUM 4.9 MEQ/L (3.5-5.1); SODIUM LEVEL 130 MEQ/L (136-145); TOTAL PROTEIN 5.8 GM/DL (6.4-8.2); TROPONIN I < 0.02 NG/ML (< 0.10)
--- OUTSIDE RECORDS SUMMARY | 2021-05-06 01:23 | CCD ---
Author Author [facility] Address Unknown Phone Unavailable Care Team Providers Care Hotel Valet Attendant Name Role Phone PORTER, A HUEY PA Unavailable Unavailable PORTER, [...] Unavailable PORTER, A HUEY PA Unavailable Unavailable Nguyen, R Regis PA Unavailable Nguyen, R Regis PA Unavailable Nguyen, R Regis PA Unavailable Nguyen, R Regis PA Unavailable Nguyen, R Regis PA Unavailable Nguyen, R Regis PA Unavailable Nguyen, R Regis PA Unavailable Nguyen, R Regis PA Unavailable Nguyen, R Regis PA Unavailable Nguyen, R Regis PA Unavailable Nguyen, R Regis PA Unavailable DARIAN, M.D. PARRY M.D. Unavailable Unavailable DARAIN, M.D. PARRY M.D. Unavailable Unavailable DARIAN, M.D. PARRY M.D. Unavailable Unavailable DARIAN, M.D. PARRY M.D. Unavailable Unavailable DARIAN, M.D. PARRY M.D. Unavailable Unavailable DARIAN, M.D. PARRY M.D. Unavailable Unavailable DARIAN, M.D. PARRY M.D. Unavailable Unavailable DARIAN, M.D. PARRY M.D. Unavailable Unavailable DARIAN, M.D. PARRY M.D. Unavailable Unavailable DARIAN, M.D. PARRY M.D. Unavailable Unavailable DARIAN, M.D. PARRY M.D. Unavailable Unavailable DARIAN, M.D. PARRY M.D. Unavailable Unavailable DARIAN, M.D. PARRY M.D. Unavailable Unavailable DARIAN, M.D. PARRY M.D. Unavailable Unavailable DOWD, EMILIANO CATEHRINE DRY CLEANING TEACHER Unavailable Unavailable DOWD, EMILIANO CATHERINE DRY CLEANING TEACHER Unavailable Unavailable DOWD, EMILIANO CATHERINE DRY CLEANING TEACHER Unavailable Unavailable DOWD, EMILIANO CATHERINE DRY CLEANING TEACHER Unavailable Unavailable DOWD, EMILIANO CATHERINE DRY CLEANING TEACHER Unavailable Unavailable DOWD, EMILIANO CATHERINE DRY CLEANING TEACHER Unavailable Unavailable DOWD, EMILIANO CATHERINE DRY CLEANING TEACHER Unavailable Unavailable DOWD, EMILIANO CATHERINE DRY CLEANING TEACHER Unavailable Unavailable DOWD, EMILIANO CATHERINE DRY CLEANING TEACHER Unavailable Unavailable DOWD, EMILIANO CATHERINE DRY CLEANING TEACHER Unavailable Unavailable DOWD, EMILIANO CATHERINE DRY CLEANING TEACHER Unavailable Unavailable DOWD, EMILIANO CATHERINE DRY CLEANING TEACHER Unavailable Unavailable DOWD, EMILIANO CATHERINE DRY CLEANING TEACHER Unavailable Unavailable DOWD, EMILIANO CATHERINE DRY CLEANING TEACHER Unavailable Unavailable DOWD, EMILIANO CATHERINE DRY CLEANING TEACHER Unavailable Unavailable DOWD, EMILIANO CATHERINE DRY CLEANING TEACHER Unavailable Unavailable DOWD, EMILIANO CATHERINE DRY CLEANING TEACHER Unavailable Unavailable DOWD, EMILIANO CATHERINE DRY CLEANING TEACHER Unavailable Unavailable DOWD, EMILIANO CATHERINE DRY CLEANING TEACHER Unavailable Unavailable DOWD, EMILIANO CATHERINE DRY CLEANING TEACHER Unavailable Unavailable DOWD, EMILIANO CATHERINE DRY CLEANING TEACHER Unavailable Unavailable DOWD, EMILIANO CATHERINE DRY CLEANING TEACHER Unavailable Unavailable DOWD, EMILIANO CATHERINE DRY CLEANING TEACHER Unavailable Unavailable DOWD, EMILIANO CATHERINE DRY CLEANING TEACHER Unavailable Unavailable DOWD, EMILIANO CATHERINE DRY CLEANING TEACHER Unavailable Unavailable DOWD, EMILIANO CATHERINE DRY CLEANING TEACHER Unavailable Unavailable DOWD, EMILIANO CATHERINE DRY CLEANING TEACHER Unavailable Unavailable DOWD, EMILIANO CATHERINE DRY CLEANING TEACHER Unavailable Unavailable DOWD, EMILIANO CATHERINE DRY CLEANING TEACHER Unavailable Unavailable DOWD, EMILIANO CATHERINE DRY CLEANING TEACHER Unavailable Unavailable DOWD, EMILIANO CATHERINE DRY CLEANING TEACHER Unavailable Unavailable DOWD, EMILIANO CATHERINE DRY CLEANING TEACHER Unavailable Unavailable DOWD, EMILIANO CATHERINE DRY CLEANING TEACHER Unavailable Unavailable DOWD, EMILIANO CATHERINE DRY CLEANING TEACHER Unavailable Unavailable DOWD, EMILIANO CATHERINE DRY CLEANING TEACHER Unavailable Unavailable DOWD, EMILIANO CATHERINE DRY CLEANING TEACHER Unavailable Unavailable DOWD, EMILIANO CATHERINE DRY CLEANING TEACHER Unavailable Unavailable DOWD, EMILIANO CATHERINE DRY CLEANING TEACHER Unavailable Unavailable DOWD, EMILIANO CATHERINE DRY CLEANING TEACHER Unavailable Unavailable DOWD, EMILIANO CATHERINE DRY CLEANING TEACHER Unavailable Unavailable DOWD, EMILIANO CATHERINE DRY CLEANING TEACHER Unavailable Unavailable DOWD, EMILIANO CATHERINE DRY CLEANING TEACHER Unavailable Unavailable DOWD, EMILIANO CATHERINE DRY CLEANING TEACHER Unavailable Unavailable DOWD, EMILIANO CATHERINE DRY CLEANING TEACHER Unavailable Unavailable DOWD, EMILIANO CATHERINE DRY CLEANING TEACHER Unavailable Unavailable DOWD, EMILIANO CATHERINE DRY CLEANING TEACHER Unavailable Unavailable DOWD, EMILIANO CATHERINE DRY CLEANING TEACHER Unavailable Unavailable DOWD, EMILIANO CATHERINE DRY CLEANING TEACHER Unavailable Unavailable DOWD, EMILIANO CATHERINE DRY CLEANING TEACHER Unavailable Unavailable DOWD, EMILIANO CATHERINE DRY CLEANING TEACHER Unavailable Unavailable Pravin Kirk MD Unavailable Unavailable Qandah, Basem Raj Aziz DO Unavailable Unavailab [...] Basem Raj Aziz DO Unavailable Unavailab le Hadian, Natanael Unavailable Unavailable Hadian, Natanael Unavailable [...] Natanael Unavailable Unavailable Hadian, Natanael Unavailable Unavailable Reagan GRAJEDA, Jessica ND Unavailable [phone] Reagan GRAJEDA, Jessica ND Unavailable + [phone] Reagan GRAJEDA, Jessica ND Unavailable + [phone] Reagan GRAJEDA, Jessica ND Unavailable + [phone] Reagan GRAJEDA, Jessica ND Unavailable + [phone] Reagan GRAJEDA, Jessica ND Unavailable + [phone] Reagan GRAJEDA, Jessica ND Unavailable [phone] Reagan GRAJEDA, Jessica ND Unavailable + 6 Reagan GRAJEDA, Jessica ND Unavailable + 6 Reagan GRAJEDA, Jessica ND Unavailable [phone] Reagan GRAJEDA, Jessica ND Unavailable [phone] Reagan GRAJEDA, Jessica ND Unavailable + 6 Reagan GRAJEDA, Jessica ND Unavailable [phone] Reagan GRAJEDA, Jessica ND Unavailable [phone] Reagan GRAJEDA, Jessica ND Unavailable [phone] Reagan GRAJEDA, Jessica ND Unavailable [phone] Reagan GRAJEDAJessica ND Unavailable [phone] Reagan GRAJEDAJessica ND Unavailable [phone] Reagan GRAJEDAJessica ND Unavailable [phone] Reagan GRAJEDAJessica ND Unavailable [phone] Reagan GRAJEDAJessica ND Unavailable [phone] Reagan GRAJEDAJessica ND Unavailable [phone] Reagan GRAJEDAJessica ND Unavailable [phone] Reagan GRAJEDAJessica ND Unavailable [phone] Reagan GRAJEDAJessica ND Unavailable [phone] Reagan GRAJEDAJessica ND Unavailable [phone] Reagan GRAJEDAJessica ND Unavailable [phone] Reagan GRAJEDAJessica ND Unavailable [phone] Reagan GRAJEDAJessica ND Unavailable [phone] Reagan GRAJEDAJessica ND Unavailable [phone] Reagan GRAJEDAJessica ND Unavailable [phone] Pradip Earl MD Unavailable Unavailable Shalom Saab MD Unavailable [phone] Shalom Saab MD Unavailable [phone] Shalom Saab MD Unavailable [phone] Shalom Saab MD Unavailable [phone] Shalom Saab MD Unavailable [phone] Shalom Saab MD Unavailable [phone] Shalom Saab MD Unavailable [phone] Shalom Saab MD Unavailable [phone] Shalom Saab MD Unavailable [phone] Shalom Saab MD Unavailable [phone] Shalom Saab MD Unavailable [phone] Carangelo, Jose PA Unavailable Unavailable Carangelo, Jose [...] Unavailable Unavailable Carangelo, Jose PA Unavailable Unavailable Pradip Phipps PH.D., M.D. Unavailable Unavailable Moise, Pradip Flaherty PH.D., M.D. Unavailable Unavailable Moise, Pradip Flaherty PH.D., M.D. Unavailable Unavailable MoisePradip PH.D., M.D. Unavailable Unavailable MoisePradip PH.D., M.D. Unavailable Unavailable MoisePradip PH.D., M.D. Unavailable Unavailable MoisePradip PH.D., M.D. Unavailable Unavailable MoisePradip PH.D., M.D. Unavailable Unavailable MoisePradip PH.D., M.D. Unavailable Unavailable MoisePradip PH.D., M.D. Unavailable Unavailable MoisePradip PH.D., M.D. Unavailable Unavailable MoisePradip PH.D., M.D. Unavailable Unavailable MoisePradip PH.D., M.D. Unavailable Unavailable MoisePradip PH.D., M.D. Unavailable Unavailable MoisePradip PH.D., M.D. Unavailable Unavailable MoisePradip PH.D., M.D. Unavailable Unavailable MoisePradip PH.D., M.D. Unavailable Unavailable Moise, C Reynold [...] Moise, C Reynold PH.D., M.D. Unavailable Unavailable Miose, C Reynold PH.D., M.D. Unavailable Unavailable Moise, [...] Moise, C Reynold PH.D., M.D. Unavailable Unavailable Reji Luis Unavailable Unavailable DORINDA, Shalom KEY MD Unavailable Unavailable DORINDA, Shalom KEY MD Unavailable Unavailable DORINDA, J YESI MD Unavailable Unavailable Shalom MODI MD Unavailable [...] Unavailable Unavailable Shalom MODI MD Unavailable Unavailable hSalom MODI MD Unavailable Unavailable Shalom MODI MD [...] Unavailable Unavailable Shalom MODI MD Unavailable Unavailable DORINDAShalom MD Unavailable Unavailable DORINDAShalom MD Unavailable Unavailable DORINDAShalom MD Unavailable Unavailable DORINDAShalom MD Unavailable Unavailable DORINDAShalom MD Unavailable Unavailable DORINDAShalom MD Unavailable Unavailable DORINDAShalom MD Unavailable Unavailable DORINDAShalom MD Unavailable Unavailable DORINDAShalom SMILEY MD Unavailable Unavailable DORINDAShalom MD Unavailable Unavailable DORINDAShalom SMILEY MD Unavailable Unavailable DORINDAShalom SMILEY MD Unavailable Unavailable DORINDAShalom MD Unavailable Unavailable DORINDAShalom MD Unavailable Unavailable DORINDAShalom MD Unavailable Unavailable DORINDAShalom MD Unavailable Unavailable DORINDAShalom MD Unavailable Unavailable DORINDAShalom SMILEY MD Unavailable Unavailable DORINDAShalom MD Unavailable Unavailable DORINDAShalom SMILEY MD Unavailable Unavailable DORINDAShalom SMILEY MD Unavailable Unavailable DORINDAShalom SMILEY MD Unavailable Unavailable DORINDAShalom SMILEY MD Unavailable Unavailable DORINDAShalom SMILEY MD Unavailable Unavailable Shalom MODI MD Unavailable Unavailable DORINDAShalom SMILEY MD Unavailable Unavailable DORINDAShalom SMILEY MD Unavailable Unavailable DORINDAShalom MD Unavailable Unavailable DORINDAShalom SMILEY MD Unavailable Unavailable DORINDAShalom SMILEY MD Unavailable Unavailable DORINDAShalom MD Unavailable Unavailable DORINDAShalom MD Unavailable Unavailable DORINDAShalom MD Unavailable Unavailable DORINDAShalom MD Unavailable Unavailable DORINDAShalom MD Unavailable Unavailable DORINDAShalom SMILEY MD Unavailable Unavailable DORINDAShalom MD Unavailable Unavailable Hadian, Natanael Unavailable Unavailable [...] Natanael Unavailable Unavailable Hadian, Natanael Unavailable Unavailable BiedronPravin MD Unavailable Unavailable BiedronPravin MD Unavailable Unavailable BidorindaronPravin MD Unavailable Unavailable BiedronPravin MD Unavailable Unavailable BiedronPravin MD Unavailable Unavailable BiedronPravin MD Unavailable Unavailable BiPravin berry MD Unavailable Unavailable BiPravin berry MD Unavailable Unavailable BiPravin berry MD Unavailable Unavailable Shalom MODI MD Unavailable [...] Unavailable Unavailable Shalom MODI MD Unavailable Unavailable DORINDAShalom BRADY MD Unavailable Unavailable Shalom MODI MD Unavailable Unavailable Shalom MODI MD Unavailable Unavailable Shalom MODI MD Unavailable Unavailable Shalom MODI MD Unavailable Unavailable Shalom MODI MD Unavailable Unavailable DORINDAShalom BRADY MD Unavailable Unavailable DORINDA, J YESI MD Unavailable Unavailable Shalom MODI MD Unavailable [...] Unavailable Unavailable Shalom MODI MD Unavailable Unavailable Shalmo MODI MD Unavailable Unavailable Ross, H Christiana JR. JAVA DEVELOPER Unavailable [phone] Ross, H Christiana JR. JAVA DEVELOPER Unavailable [phone] Ross, H Christiana JR. JAVA DEVELOPER Unavailable [phone] Ross, H Christiana JR. JAVA DEVELOPER Unavailable [phone] Ross, H Christiana JR. JAVA DEVELOPER Unavailable [phone] Ross, H Christiana JR. JAVA DEVELOPER Unavailable [phone] Ross, H Christiana JR. JAVA DEVELOPER Unavailable [phone] Ross, H Christiana JR. JAVA DEVELOPER Unavailable [phone] Akua Watson MD Unavailable Unavailable Akua Watson MD Unavailable Unavailable Akua Watson MD Unavailable Unavailable Akua Watson MD Unavailable Unavailable Akua Watson MD Unavailable Unavailable Akua Watson MD Unavailable Unavailable Akua Watson MD Unavailable Unavailable Akua Watson MD Unavailable Unavailable Akua Watson MD Unavailable Unavailable Akua Watson MD Unavailable Unavailable Akua Watson MD Unavailable Unavailable Akua Watson MD Unavailable Unavailable Akua Watson MD Unavailable Unavailable Akua Watson MD Unavailable Unavailable Akua Watson MD Unavailable Unavailable Akua Watson MD Unavailable Unavailable Akua Watson MD Unavailable Unavailable Akua Watson MD Unavailable Unavailable Akua Watson MD Unavailable Unavailable Akua Watson MD Unavailable Unavailable Akua Watson MD Unavailable Unavailable Akua Watson MD Unavailable Unavailable Akua Watson MD Unavailable Unavailable Akua Watson MD Unavailable Unavailable Akua Watson MD Unavailable Unavailable Akua Watson MD Unavailable Unavailable Akua Watson MD Unavailable Unavailable Akua Watson MD Unavailable Unavailable Akua Watson MD Unavailable Unavailable BolAkua ashley MD Unavailable Unavailable BolAkua ashley MD Unavailable Unavailable BolAkua ashley MD Unavailable Unavailable Bolla, S Robert GRAJEDA Unavailable Unavailable Bolla, S Robert GRAJEDA Unavailable Unavailable Bolla, S Robert GRAJEDA Unavailable Unavailable Bolla, S Robert GRAJEDA Unavailable Unavailable Bolla, S Robert GRAJEDA Unavailable Unavailable Bolla, Akua Jones MD Unavailable Unavailable Bolla, S Robert GRAJEDA Unavailable Unavailable Bolla, S Robert GRAJEDA Unavailable Unavailable Bolla, S Robert GRAJEDA Unavailable Unavailable Bolla, S Robert GRAJEDA Unavailable Unavailable Bolla, S Robert GRAJEDA Unavailable Unavailable Bolla, S Robert GRAJEDA Unavailable Unavailable Bolla, S Robert GRAJEDA Unavailable Unavailable Bolla, S Robert GRAJEDA Unavailable Unavailable Bolla, S Robert GRAJEDA Unavailable Unavailable Bolla, S Robert GRAJEDA Unavailable Unavailable Bolgabi, Akua Jones MD Unavailable Unavailable Shalom KERNS MD Unavailable [...] Unavailable Unavailable Shalom KERNS MD Unavailable Unavailable ZEGIL D HARIS COMPENSATION PROGRAMS MANAGER Unavailable Unavailable ZEGIL, D HARIS COMPENSATION PROGRAMS MANAGER Unavailable Unavailable ZEGIL D HARIS COMPENSATION PROGRAMS MANAGER Unavailable Unavailable SOUTH PAL MD Unavailable Unavailable SOUTH PAL MD Unavailable Unavailable SOUTH PAL MD Unavailable Unavailable SOUTH PAL MD Unavailable Unavailable SOUTH PAL MD Unavailable Unavailable SOUTH PAL MD Unavailable Unavailable DEMARCOSOUTH MD Unavailable Unavailable DEMARCOSOUTH MD Unavailable Unavailable DEMARCOSOUTH MD Unavailable Unavailable DEMARCOSOUTH MD Unavailable Unavailable DEMARCOSOUTH MD Unavailable Unavailable DEMARCOSOUTH MD Unavailable Unavailable DEMARCOSOUTH MD Unavailable Unavailable DEMARCOSOUTH MD Unavailable Unavailable SOUTH PAL MD Unavailable Unavailable SOUTH PAL MD Unavailable Unavailable DEMARCOSOUTH MD Unavailable Unavailable DEMARCOSOUTH MD Unavailable Unavailable SOUTH PAL MD Unavailable Unavailable DEMARCOSOUTH MD Unavailable Unavailable SOUTH PAL MD Unavailable Unavailable SOUTH PAL MD Unavailable Unavailable DEMARCOSOUTH MD Unavailable Unavailable DEMARCOSOUTH MD Unavailable Unavailable DEMARCOSOUTH MD Unavailable Unavailable DEMARCOSOUTH MD Unavailable Unavailable DEMARCOSOUTH MD Unavailable Unavailable DEMARCOSOUTH MD Unavailable Unavailable DEMARCO, DIA MD Unavailable Unavailable DEMARCO, DIA MD Unavailable Unavailable DEMARCO, DIA MD Unavailable Unavailable DEMARCO, DIA MD Unavailable Unavailable DEMARCO, DIA MD Unavailable Unavailable DEMARCO, DIA MD Unavailable Unavailable DEMARCO, DIA MD Unavailable Unavailable DEMARCO, DIA MD Unavailable Unavailable DEMARCO, DIA MD Unavailable Unavailable DEMARCO, DIA MD Unavailable Unavailable DEMARCO, DIA MD Unavailable Unavailable DEMARCO, DIA MD Unavailable Unavailable DEMARCO, DIA MD Unavailable Unavailable DEMARCO, DIA MD Unavailable Unavailable DEMARCO, DIA MD Unavailable Unavailable DEMARCO, DIA MD Unavailable Unavailable DEMARCO, DIA MD Unavailable Unavailable DEMARCO, DIA MD Unavailable Unavailable DEMARCO, DIA MD Unavailable Unavailable DEMARCO, DIA MD Unavailable Unavailable DEMARCO, DIA MD Unavailable Unavailable DEMARCO, DIA MD Unavailable Unavailable DEMARCO, DIA MD Unavailable Unavailable DEMARCO, DIA MD Unavailable Unavailable DEMARCO, DIA MD Unavailable Unavailable DEMARCO, DIA MD Unavailable Unavailable DEMARCO, DIA MD Unavailable Unavailable Porcartyler Chapincito MD Unavailable Unavailable Porcartyler Chapincito Unavailable Unavailable Porcartyler Chapincito MD Unavailable Unavailable Porcartyler Chapincito MD Unavailable Unavailable Porcartyler Chapincito MD Unavailable Unavailable Porcartyler Chapincito MD Unavailable Unavailable Porcartyler Chapincito Unavailable Unavailable Porcartyler Chapincito Unavailable Unavailable Porcari Chapincito Unavailable Unavailable Porcartyler Chapincito MD Unavailable Unavailable Porcartyler Chapincito MD Unavailable Unavailable Porcartyler Chapincito Unavailable Unavailable Porcari Chapincito Unavailable Unavailable Porcari Chapincito MD Unavailable Unavailable Porcari Chapincito Unavailable Unavailable Porcartyler Chapincito MD Unavailable Unavailable PorcarChapincito scott MD Unavailable Unavailable Porcartyler Chapincito MD Unavailable Unavailable Porcartyler Chapincito Unavailable Unavailable Porcari Chapincito Unavailable Unavailable Porcari Chapincito MD Unavailable Unavailable Porcari Chapincito MD Unavailable Unavailable Porcari Chapincito MD Unavailable Unavailable Porcari Chapincito Unavailable Unavailable Porcartyler Chapincito Unavailable Unavailable Porcari Chapincito Unavailable Unavailable Porcari Chapincito Unavailable Unavailable Porcari Chapincito MD Unavailable Unavailable Porcari, Chapincito MD Unavailable Unavailable VanArnam JR, W Carlos PA [...] Unavailable Unavailable Pradip Earl MD Unavailable Unavailable Pradip Earl MD Unavailable Unavailable Leela Nguyen Unavailable Unavailable Re-disclosure Warning The records that [...] is protected by Article 27-F of the [facility] Public Health law. If you continue you may have access to information: Regarding HIV / AIDS; Provided by facilities licensed or operated by the [facility] Office of Mental Health; or Provided by the [facility] Office for People With Developmental Disabilities. If such information is present, then the following [facility] mandated warning applies: This information has been [...] law may result in a fine or correction sentence or both. A general authorization for the release of medical or other information is NOT sufficient authorization for further disc losure. Allergies and Adverse Reactions Type Description Substance Reaction Status Data Source(s ) Drug allergy Drug allergy No Known Allergies [facility] Propensity to adverse reactions IBUPROFEN Ibuprofen Acti ve [facility] Encounters Encounter Providers Location Date Indications Data Source(s ) Outpatient CPSCAORT-[id number] 05/04/2021 09:41:00 AM EDT [facility] Inpatient Attender: Chapincito Dias MDA ttender: Krista Earl MDAttender: Krista Earl MDAdmitter: Chapincito Dias MD ED-MSP 2020 04:20:00 PM EDT - 05/05/2021 11:30:00 AM EDT DEHYDRATION [facility] DEHYDRATION Patient discharged. Outpatient Attender: Wayne Magaña/Janelle/Kai hilton 04/27/2021 02:15:00 PM EDT [facility] ([facility] Emergency Attender: Regis Hicks nder: Regis Diazender: Krista Earl MDAttender: Krista Earl MD ED-ED 03/21/2021 0 6:58:00 PM EDT - 03/22/2021 09:45:00 AM EDT CP, SOB [facility] CP, SOB Patient discharged. Outpatient Attender: YESI MODI MDReferrer: Natanael Monroe rocio 03/17/2021 01:38:33 PM EDT [facility] Outpatient Attender: Natanael Bobby CPSCAORT-CPSGNIMD 021 09:01:00 AM EDT - 02/20/2021 09:02:00 AM EDT [facility] Patient discharged. Emergency Attender: HUEY AARNDA ED-ED 02/14 08:34:00 PM EDT - 02/14/2021 09:46:00 PM EDT BIG LUMP ON LEFT LEG [facility] BIG LUMP ON LEFT LEG Patient discharged. Outpatient Attender: Carlos Spangler JRReferrer: Natanael Eun danielson 02/13/2021 02:35:53 PM EDT [facility] Recurring Patient Referrer: Natanael Fernyjonah 02/02/2021 01:03: 06 PM EDT [facility] Recurring Patient Referrer: Natanael Rosales 02/02/2021 01:02: 59 PM EDT [facility] Outpatient Attender: YESI MODI MDReferrer: Natanael Fer chan 01/25/2021 12:09:31 PM EDT [facility] Recurring Patient Referrer: Natanael Rosales 01/25/2021 11:37: 30 AM EDT [facility] Recurring Patient Referrer: Natanael Rosales 01/25/2021 11:36: 30 AM EDT [facility] Recurring Patient Referrer: Natanael Rosales 01/25/2021 11:36: 24 AM EDT [facility] Recurring Patient Referrer: Natanael Rosales 01/25/2021 11:31: 59 AM EDT [facility] Outpatient Admitter: YESI MODI MD MOB-MOB.PAT 0 01/25/2021 09:13:56 AM EDT - 01/25/2021 09:14:01 AM EDT [facility] Outpatient Attender: YESI MODI MDAdmitter: YESI MODI MD MOB-MOB.PAT 01/25/2021 12:00:00 AM EDT - 01/25/2021 11:34:54 AM EDT [facility] Outpatient Attender: Reynold Phipps PH.Michell, Marcelino Magaña/Darnell capps/Teri 01/03/2021 10:00:00 AM EDT [facility] ([facility]) Recurring Patient Referrer: Natanael Rosales 12/26/2020 11:07: 02 AM EDT [facility] Inpatient Attender: NEVIN KERNS MDAt tender: YESI MODI MDAdmitter: YESI MODI MD [id number] 12/26/2020 08:25:16 AM EDT - 02/03/2021 07:09:00 PM EDT [facility] Patient discharged. Outpatient Attender: Jessica DE LA ROSA-CPSGNIMBonnie 12/23/2020 10:34:00 AM EDT - 12/23/2020 10:35:00 AM EDT [facility] Patient discharged. Outpatient Attender: Reynold Phipps PH.Bonnie., MJaswinder Magaña/Janelle/Percy capps/Teri 12/15/2020 01:00:00 PM EDT [facility] ([facility]) Outpatient Attender: Max Saab MD CPSCAORT-[id number] 03/2021 02:34:00 PM EDT - 12[facility]14[facility] Attender: Natanael Rosales CPSCAORT-CPSGNIMD 08:21:00 AM EDT - 12/07/2020 08:22:00 AM EDT [facility] Patient discharged. Outpatient Attender: Max FUNESCASHEMAR-IMAPD 2020 11:35:00 AM EDT - 12/06/2020 11:36:00 AM EDT A-FIB,CHEST PAIN [facility] A-FIB,CHEST PAIN Patient discharged. Outpatient Attender: Max Saab MD CPSCAORT-CARPD 2020 12:52:00 PM EDT - 11/29/2020 12:53:00 PM EDT A-FIB,CHEST PAIN [facility] A-FIB,CHEST PAIN Patient discharged. Outpatient Attender: Max Saab MD CPSCASHEMAR-[id number] 01/2021 08:32:00 AM EDT - 11/11/2020 08:33:00 AM EDT [facility] Patient discharged. Outpatient Attender: YESI MODI MDAdmitter: YESI MODI MD MOB-MOB.PAT 11/09/2020 11:01:17 AM EDT - 11/09/2020 12:51:05 PM EDT [facility] Outpatient Admitter: YESI MODI MD MOB-MOB.PAT 0 11/09/2020 10:03:45 AM EDT - 11/09/2020 10:03:52 AM EDT [facility] Outpatient Attender: Natanael Rosales ED-LAB 02:37:00 PM EDT - 11/08/2020 02:38:00 PM EDT [id number] [facility] [id number] Patient discharged. Outpatient Attender: Natanael Rosales CPSCAORT-CPSGNIMD 021 01:59:00 PM EDT - 11/08/2020 02:00:00 PM EDT [facility] Patient discharged. Outpatient Attender: YESI MODI MDReferrer: Natanael chan 10/27/2020 11:50:52 AM EDT [facility] Recurring Patient Referrer: Natanael Rosales 10/27/2020 10:49: 03 AM EDT [facility] Inpatient Attender: NEVIN KERNS MDAt tender: YESI MODI MDAdmitter: YESI MODI MD [id number] 10/13/2020 01:37:52 PM EDT [facility] Recurring Patient Referrer: Natanael Rosales 10/06/2020 08:17: 07 AM EDT [facility] [facility] Outpatient Attender: YESI MODI MDReferrer: Natanael Monroe rocio 09/29/2020 05:21:27 PM EDT [facility] Outpatient Attender: YESI COLMENARESEFANO MDReferrer: Natanael Monroe rocio 09/15/2020 09:14:37 PM EST [facility] Recurring Patient Referrer: Natanael Isaacsjonah 09/15/2020 01:30: 47 PM EST [facility] Outpatient [facility] 09/13/2020 11:43:13 PM EST [facility] Outpatient Referrer: SOUTH PAL MD [facility] 09/13/2020 12:00:00 AM EST [facility] Recurring Patient Referrer: Natanael Bobby 08/29/2020 03:25: 25 PM EST [facility] Outpatient Attender: Natanael Isaacsjonah CPSCAORT-CPSGNIMD 021 02:54:00 PM EST - 07/21/2020 02:55:00 PM EST [facility] Patient discharged. Robert Watson MD: [id number] [address], [facility] [place] [address], Ph. Attender: Robert Watson MD [facility] - Main Office 06/06/2020 12:00:00 AM EST [facility] ([facility]) Office Visit Attender: Jose Rees [facility] Office 05/20/2020 12:15:00 PM EST [facility] ([facility]) Outpatient Attender: Jessica Kirk MDAttender: Jessica Kirk MD ED-HCCDEKPCP 02/24/2020 09:19:00 AM EDT - 02/24/2020 09:20:00 AM EDT [facility] Patient discharged. Outpatient Attender: Christiana Luis RNPAttender: Christiana Swenson NP ED-LAB 01/11/2020 03:28:00 PM EDT - 01/11/2020 03:29:00 PM EDT [id number] [facility] [id number] Patient discharged. Outpatient Attender: Antolin Ramirez CPSCAORT-IMACN 020 09:48:00 AM EDT - 12/01/2019 09:49:00 AM EDT LUMBAR SPONDYLOSIS W/ RADICULOPATHY [facility] LUMBAR SPONDYLOSIS W/ RADICULOPATHY Patient discharged. Outpatient Attender: Antolin Ramirez ED-IMAGH 020 10:43:00 AM EDT - 11/24/2019 10:44:00 AM EDT M51.36 [facility] M51.36 Patient discharged. Outpatient Attender: SOHAN FARMER M.D. ED-SDDC 020 01:22:00 PM EDT - 09/22/2019 02:20:00 PM EDT BACK PAIN [facility] BACK PAIN Patient discharged. Emergency Attender: Regis ARANDA ED-ED 020 03:29:00 PM EST - 08/28/2019 04:25:00 PM EST sore throat [facility] sore throat Patient discharged. Emergency Attender: HARIS LEE [facility] ED-ED 03/2019 11:58:00 PM EDT - 03/17/2019 05:01:00 AM EDT SOB,confused [facility] SOB,confused Patient discharged. Outpatient Attender: [facility] 11:48:00 AM EDT - 10/28/2018 11:49:00 AM EDT [facility] Emergency Attender: HARIS LEE [facility] ED-ED 03/2019 01:37:00 PM EDT - 10/14/2018 04:41:00 PM EDT SOB, LEFT HIP PAIN [facility] SOB, LEFT HIP PAIN Medications Medication Brand Name Start Date Product Form Dose Route Admi nistrative Instructions Pharmacy Instructions Status Indications Reaction Description Data Source(s) 10 mg 04/27/2021 12:00:00 AM EDT tablet 120 TAKE 1-2 TABLETS BY MOUTH EVERY 4 HOURS NEEDED MAXIMUM DAILY DOSE = EIGHT TABLETS TAKE 1-2 TABLETS BY MOUTH EVERY 4 HOURS NEEDED MAXIMUM DAILY DOSE = EIGHT TABLETS SOLD: 04/27/2021 [facility] 5-325 mg 04/25/2021 12:00:00 AM EDT tablet 8 TAKE ONE TABLET BY MOUTH EVERY 6 HOURS NEEDED FOR PAIN MAXIMUM DAILY DOSE = FOUR TABLETS TAKE ONE TABLET BY MOUTH EVERY 6 HOURS NEEDED FOR PAIN MAXIMUM DAILY DOSE = FOUR TABLETS SOLD: 04/25/2021 [facility] Acetaminophen 325 MG / Hydrocodone Bitartrate 5 MG Ora l Tablet 5-325 mg HYDROCODONE/ACETAMINOPHEN 04/25/2021 12:00:00 AM EDT tablet 12 TAKE ONE TABLET BY MOUTH EVERY 6 HOURS NEEDED FOR PAIN MAXIMUM DAILY DOSE = 4 TAKE ONE TABLET BY MOUTH EVERY 6 HOURS NEEDED FOR PAIN MAXIMUM DAILY DOSE = 4 SOLD: 04/25/2021 [facility] 100 mg 04/12/2021 12:00:00 AM EDT tablet [...] tablet (15 mg total) by mouth daily [facility] Oxycodone Hydrochloride 15 MG Oral Table t oxyCODONE (ROXICODONE) 15 MG immediate release tablet oxyCODONE (ROXICODONE) 15 MG immediate release tablet 02/03/2021 12:00:00 AM EDT 15 mg Oral active Take 1 tablet (15 mg total) by mouth every 4 (four) hours as needed Max Daily Amount: 90 mg [facility] 25 mg 02/01/2021 12:00:00 AM EDT [...] Sat01/31/21 at 1102, For 149 hours, Post-op [facility] Medication administered onsite oxyCODONE (ROXICODONE) immediate release tablet 15 mg 01/31/2021 11:01:59 AM EDT 15 mg Oral active 15 mg, O ral, Every 4 hours PRN, moderate pain (4-6), Starting on Sat01/31/21 at 1101, For 149 hours, Post-op [facility] Medication administered onsite fentaNYL Citrate (PF) (SUBLIMAZE) injection 25 mcg [id number] 01/31/2021 11:00:00 AM EDT 25 ug Intravenous completed 25 mcg, Intravenous, Once, On Sat01/31/21 at 1100, For 1 dose [facility] Medication administered onsite POLYETHYLENE GLYCOL 3350 142 MG/ML Oral Solution polyethylene glycol (GLYCOLAX) packet 17 g polyethylene glycol (GLYCOLAX) packet 17 g 01/31/2021 09:00:00 AM EDT 17 g Oral active 17 g, Or al, Daily, First dose on Sat01/31/21 at 0900, Post-op
Start POD #1
[facility] Medication administered onsite Amlodipine 10 MG Oral Tablet amLODIPine (NORVASC) tabl et 10 mg amLODIPine (NORVASC) tablet 10 mg 01/31/2021 09:00:00 AM EDT 10 mg Oral active 10 mg, Oral, Daily, First dose on Sat01/31/21 at 0900, Post-op [facility] Medication administered onsite Chlorthalidone 25 MG Oral Tablet chlorthalidone (HYGRO TEN) tablet 25 mg chlorthalidone (HYGROTEN) tablet 25 mg 01/31/2021 09:00:00 AM EDT 2 5 mg Oral active 25 mg, Oral, Daily, First dose on Sat01/31/21 at 0900, Post-op [facility] Medication administered onsite Bisacodyl 10 MG Rectal Suppository bisacodyl (DULCOLAX ) suppository 10 mg bisacodyl (DULCOLAX) suppository 10 mg 01/31/2021 12:00:00 AM EDT 10 mg Rectal active 10 mg, Rectal, Daily PRN, constipation, Starting on Sat01/31/21 at 0000, For 4 days, Post-op
For post-op day #1, #3, and #4 Hold for BM
[facility] Medication administered onsite cefazolin (ANCEF) injection [...] this medication through syringe adapter set ref [id number]. Flush line after use
[facility] Perioperative Pharmacoprophylaxis Medication administered onsite Docusate Sodium 50 MG / sennosides, [facility] 8.6 MG Oral Tablet senna-docusate (PERICOLACE) 8.6-50 MG 2 tablet senna-docusate (PERICOLACE) 8.6-50 MG 2 tablet 01/30/2021 09:00:00 PM EDT 2 {tbl} Oral active 2 tablet, Oral, Nightly, First dose on Sat01/30/21 at 2100, Post-op
hold for loose stools
[facility] Medication administered onsite Acetaminophen 500 MG Oral Tablet acetaminophen (TYLENO L) tablet 1,000 mg acetaminophen (TYLENOL) tablet 1,000 mg 01/30/2021 09:00:00 PM EDT 1000 mg Oral active 1,000 mg, Oral , Every 6 hours (scheduled), First dose on Sat01/30/21 at 2100, Post-op [facility] Medication administered onsite Metoprolol Tartrate 25 MG Oral Tablet me toprolol tartrate (LOPRESSOR) tablet 25 mg metoprolol tartrate (LOPRESSOR) tablet 25 mg 01/30/2021 09:00:00 PM EDT 25 mg Oral active 25 mg, Ora l, 3 times daily, First dose on Sat01/30/21 at 2100, Post-op [facility] Medication administered onsite Hydroxyzine Hydrochloride 25 MG Oral Tablet hydrOXYzin e (ATARAX) tablet 50 mg hydrOXYzine (ATARAX) tablet 50 mg 01/30/2021 09:00:00 PM EDT 50 mg Oral active 50 mg, Oral, Nightly PRN, For insomnia, Starting on Sat01/30/21 at 2100, Post-op [facility] Medication administered onsite Zolpidem tartrate 5 MG Oral Tablet zolpidem (AMBIEN) t ablet 10 mg zolpidem (AMBIEN) tablet 10 mg 01/30/2021 09:00:00 PM EDT 10 mg Oral active 10 mg, Oral, Nightly PRN, sleep, Starting on Sat01/30/21 at 2100, For 7 days, Post-op [facility] Medication administered onsite Methocarbamol 500 MG Oral Tablet methocarbamol (ROBAXI N) tablet 750 mg methocarbamol (ROBAXIN) tablet 750 mg 01/30/2021 08:59:58 PM EDT 75 0 mg Oral active 750 mg, Oral, 4 times daily PRN, muscle spasms, Starting on Sat01/30/21 at 2058, Post-op [facility] Medication administered onsite oxyCODONE (ROXICODONE) immediate release tablet 15 mg 01/30/2021 08:59:37 PM EDT 15 mg Oral aborted 15 mg, O ral, Every 4 hours PRN, severe pain (7- 10), Starting on Sat01/30/21 at 2058, For 163 hours, Post-op [facility] Medication administered onsite cefazolin (ANCEF) injection [...] this medication through syringe adapter set ref [id number]. Flush line after use
[facility] Perioperative Pharmacoprophylaxis Medication administered onsite Folic Acid 1 MG Oral Tablet folic acid (FOLVITE) table t 1 mg folic acid (FOLVITE) tablet 1 mg 01/30/2021 06:00:00 PM EDT 1 mg Oral active 1 mg, Oral, Daily, First dose on Sat01/30/21 at 1800, Post-op [facility] Medication administered onsite Furosemide 40 MG Oral Tablet furosemide (LASIX) tablet 40 mg furosemide (LASIX) tablet 40 mg 01/30/2021 06:00:00 PM EDT 40 mg Oral activ e 40 mg, Oral, Daily, First dose on Sat01/30/21 at 1800, Post-op [facility] Medication administered onsite Allopurinol 100 MG Oral Tablet allopurinol (ZYLOPRIM) tablet 100 mg allopurinol (ZYLOPRIM) tablet 100 mg 01/30/2021 05:00:00 PM EDT 100 mg Oral active 100 mg, Oral, Daily, First dose on Sat01/30/21 at 1700 , Post-op [facility] Medication administered onsite Spironolactone 25 MG Oral Tablet spironolactone (ALDAC TONE) tablet 25 mg spironolactone (ALDACTONE) tablet 25 mg 01/30/2021 05:00:00 PM EDT 25 mg Oral active 25 mg, Oral, Da maritza, First dose on Sat01/30/21 at 1700, Post- op
For administration and preparation considerations, refer to [facility] in the Workplace Policy on Intranet.
[facility] Medication administered onsite potassium chloride SA (K-DUR,KLOR-CON) CR tablet 10 mEq [id number] 01/30/2021 05:00:00 PM EDT 10 meq Oral active 10 mEq, Oral, Daily, First dose on Sat01/30/21 at 1700, Post-op [facility] Medication administered onsite sodium chloride 0.9% (NS) infusion 7314-9625-49 01/30/2021 05:00:00 P M EDT Intravenous aborted at 100 mL/hr, Intravenous, Continuous, Starting on Sat01/30/21 at 1700, Post-op [facility] Medication administered onsite Mineral Oil 1000 MG/ML Enema mineral oil enema 1 enema mineral oil enema 1 enema 01/30/2021 04:44:16 PM EDT 1 {enema} Rectal active 1 enema, Rectal, Daily PRN, constipation, if bisacodyl is ineffective, Starting on Sat01/30/21 at 1644, Post-op
hold for loose stools
[facility] Medication administered onsite Oxycodone Hydrochloride 10 MG Oral Tablet Oxycodone HC l TABS 10 mg Oxycodone HCl TABS 10 mg 01/30/2021 04:44:16 PM EDT 10 mg Oral aborted 10 mg, Oral, Every 4 hours PRN, severe pain (7-10), Starting on Sat01/30/21 at 1644, For 7 days, Post-op [facility] Medication administered onsite Methocarbamol 500 MG Oral Tablet methocarbamol (ROBAXI N) tablet 500 mg methocarbamol (ROBAXIN) tablet 500 mg 01/30/2021 04:44:16 PM EDT 50 0 mg Oral aborted 500 mg, Oral, 4 times daily PRN, muscle spasms, Starting on Sat01/30/21 at 1644, Post-op [facility] Medication administered onsite Nitroglycerin 0.4 MG Sublingual Tablet n itroglycerin (NITROSTAT) SL tablet 0.4 mg nitroglycerin (NITROSTAT) SL tablet 0.4 mg 01/30/2021 04:44:16 P M EDT 0.4 mg Sublingual active 0.4 mg, S ublingual, Every 5 min PRN, chest pain, Starting on Sat01/30/21 at 1644, Post-op
May administer up to 3 doses per episode.
[facility] Medication administered onsite Ondansetron 4 MG Disintegrating Oral Tab let ondansetron (ZOFRAN-ODT) disintegrating tablet 4 mg ondansetron (ZOFRAN-ODT) disintegrating tablet 4 mg 01/30/2021 04:44:16 PM EDT 4 mg Oral active 4 mg, Oral, Every 4 hours PRN, nausea, vomiting, Starting on Sat01/30/21 at 1644, Post-op [facility] Medication administered onsite ondansetron (ZOFRAN) injection 4 mg [id number] 01/30/2021 04:44:1 6 PM EDT 4 mg Intravenous active 4 mg, In travenous, Every 4 hours PRN, nausea, vomiting, Starting on Sat01/30/21 at 1644, Post-op [facility] Medication administered onsite Calcium Carbonate 500 MG Chewable Tablet calcium carbonate (TUMS) chewable tablet 500-1,000 mg calcium carbonate (TUMS) chewable tablet 500-1,000 mg 01/30/2021 04:44:15 PM EDT mg Oral active 500-1,000 mg, Oral, Every 4 hours PRN, indigestion, moderate or severe, Starting on Sat01/30/21 at 1644, Post-op [facility] Medication administered onsite fentaNYL Citrate (PF) (SUBLIMAZE) injection 50 mcg [id number] 01/30/2021 04:44:15 PM EDT 50 ug Intravenous active 50 mcg, Intravenous, Every 3 hours PRN, for severe breakthrough pain (7-10) if oral opioid ineffective within one hour, Starting on Sat01/30/21 at 1644, For 7 days, Post-op [facility] Medication administered onsite Benzocaine 6 MG / Menthol 10 MG Oral Joaquin enge benzocaine-menthol (CHLORASEPTIC) 1 lozenge benzocaine-menthol (CHLORASEPTIC) 1 lozenge 01/30/2021 04:44 :15 PM EDT 1 {lozenge} Oral active 1 lozenge, O ral, Every 2 hour PRN, sore throat, Starting on Sat01/30/21 at 1644, Post-op [facility] Medication administered onsite Albuterol 0.83 MG/ML Inhalant Solution a lbuterol (PROVENTIL) nebulizer solution 2.5 mg albuterol (PROVENTIL) nebulizer solution 2.5 mg 2020 04:44:14 PM EDT 2.5 mg active 2.5 mg, Nebulization, RT every 4 hours as needed, wheezing, shortness of breath, Starting on Sat01/30/21 at 1644, Post-op [facility] Medication administered onsite HYDROmorphone (DILAUDID) injection 0.5 mg [id number] 01/30/2021 02:17:02 PM EDT 0.5 mg Intravenous aborted 0.5 mg, Intravenous, Every 5 min PRN, severe pain (7-10), Starting on Sat01/30/21 at 1417, For 5 doses, PACU (only) [facility] Medication administered onsite fentaNYL Citrate (PF) (SUBLIMAZE) injection 25 mcg [id number] 01/30/2021 02:17:02 PM EDT 25 ug Intravenous completed 25 mcg, Intravenous, Every 5 min PRN, moderate pain (4 to 6), Starting on Sat01/30/21 at 1417, For 5 doses, PACU (only) [facility] Medication administered onsite Acetaminophen 500 MG Oral Tablet acetaminophen (TYLENO L) tablet 1,000 mg acetaminophen (TYLENOL) tablet 1,000 mg 01/30/2021 10:00:00 AM EDT 1000 mg Oral completed 1,000 mg, Oral , call center support representative, On Sat01/30/21 at 1000, For 1 dose, Pre-op
To be administered just prior to to transport to operating room
[facility] Medication administered onsite ondansetron (ZOFRAN) injection 4 mg [id number] 01/30/2021 10:00:0 0 AM EDT 4 mg Intravenous completed 4 mg, In travenous, call center support representative, On Sat01/30/21 at 1000, For 1 dose, Pre-op
To be administered just prior to to transport to operating room
[facility] Medication administered onsite 2 ML Metoclopramide 5 MG/ML Prefilled Sy ringe metoclopramide (REGLAN) injection 10 mg metoclopramide (REGLAN) injection 10 mg 01/30/2021 10:00:00 AM E DT 10 mg Intravenous completed 10 mg, I ntravenous, call center support representative, On Sat01/30/21 at 1000, For 1 dose, Pre-op
To be administered just prior to to transport to operating room
[facility] Medication administered onsite dexamethasone (DECADRON) injection 4 mg [id number] 01/31/20 10:00:00 AM EDT 4 mg Intravenous completed 4 mg, Intr avenous, call center support representative, On Sat01/30/21 at 1000, For 1 dose, Pre-op
To be administered just prior to to transport to operating room. Hold if patient is diabetic or if stress dose yaneli roids are ordered
[facility] Medication administered onsite chlorhexidine gluconate 1.2 MG/ML Mouthw kellen chlorhexidine (PERIDEX) 0.12 % oral solution 15 mL chlorhexidine (PERIDEX) 0.12 % oral solution 15 mL 10:00:00 AM EDT 15 mL Mouth/Throat completed 15 mL, Mouth/Throat, call center support representative, On Sat01/30/21 at 1000, For 1 dose, Pre-op
Swish for 30 seconds and spit in pre-induction unit
[facility] Medication administered onsite Magnesium Chloride 0.82570 MEQ/ML / Pota ssium Chloride 0.0497 MEQ/ML / Sodium Acetate 0.0163 MEQ/ML / Sodium Chloride 0.0899 MEQ/ML / Sodium gluconate 5.02 MG/ML Injectable Solution [Normosol-R] electrolyte-R (NORMOSOL-R/PLASMALYTE-R) solution electrolyte-R (NORMOSOL-R/PLASMALYTE-R) solution 01/30 10:00:00 AM EDT Intravenous aborted at 1 00 mL/hr, Intravenous, Continuous, Starting on Sat01/30/21 at 1000 [facility] Medication administered onsite 2 % 01/25/2021 [...] starting the five days prior to surgery. [facility] 10-325 mg 01/17/2021 12:00:00 AM EDT [...] 12/26/2020 12:00:00 AM EDT ORAL completed [facility] ([facility]) 10-325 mg 12/24/2020 12:00:00 AM EDT tablet [...] TIMES A DAY NEEDED SOLD: 12/08/2020 [facility] 10-325 mg 11/26/2020 12:00:00 AM EDT [...] DAILY DOSE = THREE TABLETS SOLD: 09/29/2020 [facility] pantoprazole 40 MG Delayed Release [...] DA Y ON EMPTY STOMACH SOLD: 12/08/2020 [facility] Potassium Chloride 10 MEQ Extended [...] DA Y ON EMPTY STOMACH SOLD: 10/28/2020 [facility] Potassium Chloride 10 MEQ Extended [...] TABLET BY MOUTH EVERY DAY SOLD: 09/24/2020 [facility] 1 gram 07/22/2020 12:00:00 AM EST tablet 120 TAKE ONE TABLET BY MOUTH FOUR TIMES A DAY ON EMPTY STOMACH TAKE ONE TABLET BY MOUTH FOUR TIMES A DA Y ON EMPTY STOMACH SOLD: 08/31/2020 [facility] 25 mg 07/22/2020 12:00:00 AM EST tablet 30 TAKE ONE TABLET BY MOUTH EVERY DAY TAKE ONE TABLET BY MOUTH EVERY DAY SOLD: 10/28/2020 [facility] 1 mg 07/22/2020 12:00:00 AM EST tablet 30 TAKE ONE TABLET BY MOUTH EVERY DAY TAKE ONE TABLET BY MOUTH EVERY DAY SOLD: 07/25/2020 [facility] 1 gram 07/22/2020 12:00:00 AM EST [...] TABLET BY MOUTH ONCE DAILY SOLD: 06/18/2020 [facility] 1 mg 06/18/2020 12:00:00 AM EST [...] DAY WITH FOOD SOLD: 05/14/2020 [facility] 100 mg 02/24/2020 12:00:00 AM EDT tablet 30 TAKE ONE TABLET BY MOUTH EVERY DAY TAKE ONE TABLET BY MOUTH EVERY DAY SOLD: 09/24/2020 [facility] 10 mg 02/24/2020 12:00:00 AM [...] MOUTH EVERY DAY SOLD: 01/06/2021 [facility] 15 mg 02/24/2020 12:00:00 AM [...] 20 MG Oral Tablet [facility] ([facility]) pantoprazole 40 MG Delayed Release Oral Tablet pantoprazole 40 mg tablet,delayed release TAKE ONE TABLET BY MOUTH TWICE A DAY pantoprazole 40 mg tablet,delayed release TAKE ONE TABLET BY MOUTH TWICE A DAY completed pantoprazole 40 MG Delayed Release Oral Tablet [facility] ([facility]) Sucralfate 100 MG/ML Oral Suspension sucralfate 100 mg /mL oral suspension sucralfate 100 mg/mL oral suspension c ompleted sucralfate 100 MG/ML Oral Suspension [facility] ([facility]) albuterol sulfate HFA 90 mcg/actuation aerosol inhaler [id number] completed [id number] 200 ACTUAT albuterol 0.09 MG/ACTUAT Metered Dose Inhaler [facility] ([facility]) Acetaminophen 325 MG / Oxycodone Hydroch loride 5 MG Oral Tablet oxycodone- acetaminophen 5 mg-325 mg tablet oxycodone-acetaminophen 5 mg-325 mg tablet completed acetaminop hen 325 MG / oxycodone hydrochloride 5 MG Oral Tablet [facility] ([facility]) rivaroxaban 15 MG Oral Tablet rivaroxaban (Xarelto) 15 MG TABS rivaroxaban (Xarelto) 15 MG TABS 1 {tbl} Oral aborted Take 1 tablet by mouth daily [facility] pantoprazole 40 MG Delayed Release Oral Tablet pantoprazole (PROTONIX) 40 MG tablet pantoprazole (PROTONIX) 40 MG tablet 40 mg Oral aborted Take 40 mg by mouth daily [facility] Sucralfate 1000 MG Oral Tablet sucralfate (CARAFATE) 1 g tablet sucralfate (CARAFATE) 1 g tablet 1 g Oral aborted Take 1 g by mouth 4 (four) times a day [facility] Spironolactone 25 MG Oral Tablet spironolactone (ALDAC TONE) 25 MG tablet spironolactone (ALDACTONE) 25 MG tablet 25 mg Oral aborted Take 25 mg by mouth daily [facility] 1 ML Enoxaparin sodium 150 MG/ML Prefill ed Syringe enoxaparin (LOVENOX) 150 MG/ML injection enoxaparin (LOVENOX) 150 MG/ML injection 130 mg Subcutaneous aborted Inject 130 mg under the skin every 12 (twelve) hours [facility] Daily Gabriel (THERAGRAN) per tablet [id number] 1 {tbl} Oral aborted Take 1 tablet by mouth daily [facility] Nitroglycerin 0.4 MG Sublingual Tablet n [...] 0.4 MG Sublingual Tablet [facility] ([facility]) Oxycodone Hydrochloride 5 MG Oral Tablet oxycodone 5 m g tablet oxycodone 5 mg tablet completed oxycodone hydro chloride 5 MG Oral Tablet [facility] ([facility]) Lisinopril 40 MG Oral Tablet lisinopril 40 mg tablet TAKE ONE TABLET BY MOUTH EVERY DAY lisinopril 40 mg tablet TAKE ONE TABLET BY MOUTH EVERY DAY completed lisinopril 40 MG Oral Tablet [facility] ([facility]) gabapentin 300 MG Oral Tablet [Gralise] Gralise 300 mg tablet,extended release TAKE THREE TABLETS BY MOUTH EVERY DAY Gralise 300 mg tablet,extended release TAKE THREE TABLETS BY MOUTH EVERY DAY completed Once-Daily gabapentin 300 MG Oral Tablet [Gralise] [facility] ([facility]) Acetaminophen 325 MG / Oxycodone Hydroch loride 7.5 MG Oral Tablet oxycodone- acetaminophen 7.5 mg-325 mg tablet oxycodone-acetaminophen 7.5 mg-325 mg tablet completed acetam inophen 325 MG / oxycodone hydrochloride 7.5 MG Oral Tablet [facility] ([facility]) Hydroxyzine Hydrochloride 25 MG Oral Tab let hydroxyzine HCl 25 mg tablet TAKE 1 TABLET BY MOUTH AT BEDTIME NEEDED FOR INSOMNIA hydroxyzine HCl 25 mg tablet TAKE 1 TABLET BY MOUTH AT BEDTIME NEEDED FOR INSOMNIA completed hydroxyzine hydrochloride 25 MG Oral Tab let [facility] ([facility]) Acetaminophen 325 MG / Oxycodone Hydroch loride 10 MG Oral Tablet oxyCODONE- acetaminophen (PERCOCET) 10-325 MG per tablet oxyCODONE-acetaminophen (PERCOCET) 10-325 MG per tablet 1 {tbl} Oral aborted Take 1 tablet by mouth every 4 (four) hours as needed for pain MDD 8 tablets [facility] Colchicine 0.6 MG Oral Tablet colchicine 0.6 mg tablet colch icine 0.6 mg tablet completed colchicine 0.6 MG Oral Tablet [facility] ([facility]) Insurance Providers Payer name Policy type / Coverage type Policy ID Covered constitution party ID Covered constitution party's relationship to kim Policy Kim Plan Information MEDICARE [id number] Attending [id number] A AETNA MEDICARE Medicare [id number] 20 [id number] AETNA MEDICARE [id number] Geno MEBVR TTY Aetna Medicare F [id number] SELF [id number] Aetna Medicare F MEBVRTTY SELF MEBVR TTY AETNA MEDICARE [id number] Geno 10 [id number] INSURANCE COVID-19 COVID Geno C OVID INSURANCE COVID-19 [id number] AETNA MEDICARE ADVANTAGE [id number] Retired MEBVRTTY Aetna Medicare F MEBVRTTY SELF MEBVR TTY AETNA MEDICARE ADVANTAGE [id number] Retired [id number] AETNA MEDICARE [id number] SP 10 [id number] AETNA MEDICARE MEBVRTTY SP MEBVR TTY AETNA MEDICARE [id number] SP [id number] AETNA MEDICARE ADVANTAGE [id number] Other MEBVRTTY MEDICARE [id number] Other [id number] AETNA MEDICARE ADVANTAGE [id number] Other [id number] AETNA MEDICARE ADVANTAGE [id number] Other [id number] AETNA MEDICARE ADVANTAGE [id number] S [id number] AETNA MEDICARE [id number] SP [id number] MEDICARE [id number] SP [id number] A MEDICARE [id number] SP [id number] AETNA MEDICARE O [id number] S [id number] AETNA MEDICARE ADVANTAGE [id number] Other [id number] WELLCARE [id number] Other [id number] AETNA MEDICARE [id number] SP [id number] WELLCARE [id number] SP [id number] AETNA MEDICARE ADVANTAGE [id number] S [id number] WELLCARE -RECURRING [id number] 18 [id number] MEDICARE -RECURRING [id number] 18 [id number] MEDICARE [id number] S [id number] A MEDICARE [id number] S [id number] A MEDICAID [id number] AETNA MEDICARE MEBVRTTY SP MEBVR TTY MEDICARE [id number] S [id number] AETNA MEDICARE ADVANTAGE MEBVRTTY Other MEBVRTTY FINANCIAL ASSISTANCE [id number] Other [id number] WELLCARE [id number] S [id number] MEDICARE [id number] S [id number] A MEDICARE [id number] S [id number] A AETNA MEDICARE ADVANTAGE [id number] Retired [id number] MEDICARE [id number] Retired [id number] AETNA MEDICARE ADVANTAGE MEBVRTTY Other MEBVRTTY AETNA MEDICARE ADVANTAGE [id number] Other [id number] Problems, Conditions, and Diagnoses Code Display Name Description Problem Type Effective Dates Data Source(s) 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 ASSISTED (CURRENT) USE OF ANTICOAGULANTS Diagnosis 03/21/2021 06:58[facility].899 Other half-way (current) drug therapy O THER CHECK OUT CLERK (CURRENT) DRUG THERAPY Diagnosis 03/21/2021 06:58:00 PM EDT [facility] Z96.643 Presence of artificial hip joint, bilate ral PRESENCE OF ARTIFICIAL HIP JOINT, BILATERAL Diagnosis 03/21/2021 06:58:00 PM EDT [facility] F17.200 Nicotine dependence, unspecified, uncomp licated NICOTINE DEPENDENCE, UNSPECIFIED, UNCOMPLICATED Diagnosis 03/21/2021 06:58:00 PM [facility] I25.2 Old myocardial infarction OLD MYOCARDIAL INFARCTION Di agnosis 03/21/2021 06:58:00 PM [facility] I10 Essential (primary) hypertension ESSENTIAL (PRIMARY) H YPERTENSION Diagnosis 03/21/2021 06:58:00 PM [facility] I25.10 Atherosclerotic heart diseas e of [place] coronary artery without angina pectoris ATHSCL HEART DISEASE OF [place] CORONARY ARTERY W/O ANG PCTRS Diagnosis 03/21/2021 06:58:00 PM EDT [facility] J44.9 Chronic obstructive pulmonary disease, u nspecified CHRONIC OBSTRUCTIVE PULMONARY DISEASE, UNSPECIFIED Diagnosis 03/21/2021 06:58:00 PM EDT [facility] Z20.822 CONTACT WITH AND (SUSPECTED) EXPOSURE TO COVID-19 CONTACT WITH AND (SUSPECTED) EXPOSURE TO COVID-19 Diagnosis 03/21/2021 06:58:00 PM EDT [facility] 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, right ankle and foot ID IOPATHIC GOUT, RIGHT ANKLE AND FOOT Diagnosis 02/20/2021 09:01:00 AM EDT [facility] R22.42 Localized swelling, mass and lump, left lower limb LOCALIZED SWELLING, MASS AND LUMP, LEFT LOWER LIMB Diagnosis 02/14/2021 08:34:00 PM EDT [facility] M48.062 Spinal stenosis, lumbar region with neur ogenic claudication SPINAL STENOSIS, LUMBAR REGION WITH NEUROGENIC CLAUDICATION Diagnosis 0 12/23/2020 10:34:00 AM [facility] 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 F17.200 Nicotine dependence, unspecified, uncomp licated NICOTINE DEPENDENCE, UNSPECIFIED, UNCOMPLICATED Diagnosis 12/07/2020 08:21:00 AM [facility] Z12.2 Encounter for screening for malignant ne oplasm of respiratory organs ENCNTR SCREEN FOR MALIGNANT NEOPLASM OF RESPIRATORY ORGANS Diagnosis 12/07/2020 08:21:00 AM [facility] R49.0 Dysphonia DYSPHONIA Diagnosis 12/07/2020 08:21:[address] [facility] I07.1 Rheumatic tricuspid insufficiency RHEUMATIC TRIC USPID INSUFFICIENCY Diagnosis 12/06/2020 11:35:00 AM [facility] I34.0 Nonrheumatic mitral (valve) insufficienc y NONRHEUMATIC MITRAL (VALVE) INSUFFICIENCY Diagnosis 12/06/2020 11:35:00 AM [facility] I51.7 Cardiomegaly CARDIOMEGALY Diagnosis 12/06/2020 11:35:00 A M [facility] I50.30 Unspecified diastolic (congestive) heart failure UNSPECIFIED DIASTOLIC (CONGESTIVE) HEART FAILURE Diagnosis 12/06/2020 11:35:00 AM [facility] R07.9 Chest pain, unspecified CHEST PAIN, UNSPECIFIED Diagno sis 12/06/2020 11:35:00 AM [facility] I48.91 Unspecified atrial fibrillation UNSPECIFIED ATRI AL FIBRILLATION Diagnosis 12/06/2020 11:35:00 AM [facility] G47.33 Obstructive sleep apnea (adult) (pediatr ic) OBSTRUCTIVE SLEEP APNEA (ADULT) (PEDIATRIC) Diagnosis 11/29/2020 12:52:00 PM [facility] E66.9 Obesity, unspecified OBESITY, UNSPECIFIED Diagnosis 11/29/2020 12:52:00 PM [facility] F17.210 Nicotine dependence, cigarettes, uncompl icated NICOTINE DEPENDENCE, CIGARETTES, UNCOMPLICATED Diagnosis 11/29/2020 12:52:00 PM [facility] E78.5 Hyperlipidemia, unspecified HYPERLIPIDEMIA, UNSPECIFIE D Diagnosis 11/29/2020 12:52:00 PM [facility] N18.30 CHRONIC KIDNEY DISEASE, STAGE 3 UNSPECIF IED CHRONIC KIDNEY DISEASE, STAGE 3 UNSPECIFIED Diagnosis 11/11/2020 08:32:00 AM [facility] I12.9 Hypertensive chronic kidney disease with stage 1 through stage 4 chronic kidney disease, or unspecified chronic kidney disease HYPERTENSIVE CHRONIC KIDNEY DISEASE W STG 1-4/UNSP CHR KDNY Diagnosis 11/11/2020 08:32:00 A M [facility] I48.21 PERMANENT ATRIAL FIBRILLATION PERMANENT ATRIAL FIBRILL ATION Diagnosis 11/11/2020 08:32:00 AM EDT [facility] M48.062 Spinal stenosis, lumbar region with neur ogenic claudication Spinal stenosis, lumbar region with neur Diagnosis 11/09/2020 11:01:17 AM EDT [facility] M51.36 Other intervertebral disc degeneration, lumbar region Other intervertebral disc degeneration, Diagnosis 11/09/2020 11:01:17 AM EDT [facility] U07.1 COVID-19 COVID-19 Diagnosis 11/09/2020 10:03:45 AM ED T [facility] Z01.818 Encounter for other preprocedural examin ation ENCOUNTER FOR OTHER PREPROCEDURAL EXAMINATION Diagnosis 11/08/2020 02:37:00 PM EDT [facility] Z86.79 Personal history of other diseases of th e circulatory system PERSONAL HISTORY OF OTHER DISEASES OF THE CIRCULATORY SYSTEM Diagnosis 01:59:00 PM EDT [facility] M54.9 Dorsalgia, unspecified DORSALGIA, UNSPECIFIED Diagnosi s 11/08/2020 01:59:00 PM EDT [facility] I48.91 Atrial fibrillation Atrial fibrillation [id number] 01/30/2021 12:00:00 AM EDT [facility] J44.9 COPD (chronic obstructive pulmonary dise ase) COPD (chronic obstructive pulmonary disease) [id number] 01/30/2021 12:00:00 AM EDT [facility] K21.9 GERD (gastroesophageal reflux disease) G ERD (gastroesophageal reflux disease) [id number] 01/30/2021 12:00:00 AM EDT [facility] E78.5 Hyperlipidemia Hyperlipidemia [id number] 01/30/2021 12:00: 00 AM EDT [facility] I10 Hypertension Hypertension [id number] 01/30/2021 12:00:00 A M EDT [facility] G47.30 Sleep apnea Sleep apnea [id number] 01/30/2021 12:00:00 AM EDT [facility] M48.062 Spinal stenosis of lumbar region with ne urogenic claudication Spinal stenosis of lumbar region with neurogenic claudication [id number] 01/30/2021 12:00:00 AM EDT [facility] B97.7 Human papilloma virus infection Human papilloma virus infection Problem 01/03/2021 12:00:00 AM EDT [facility] ([facility], ) 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 Problem 12/15/2020 12:00:00 AM EDT [facility] ([facility], ) [id number] Essential hypertension Essential hypertension Problem 12/12/2020 12:00:00 AM EDT [facility] ([facility], ) Surgeries/Procedures Procedure Description Date Indications Data Source(s) IADNA MYCOPLSM PNEUMONIAE AMPLIFIED PROBE [facility] AMPLIF[facility] PROBE TQ 04/30/20 12:[facility] NOS AMPLIFIED PROBE TQ EACH ORGANISM 04/30/2021 12:00:00 AM [facility] [id number] 04/30/2021 12:00:00 AM [facility] PROTHROMBIN TIME PROTHROMBIN TIME 04/30/2021 12:00:00 AM [facility] BLOOD COUNT COMPLETE AUTO&AUTO DIFRNTL WBC COUNT COMPLETE CB C W/AUTO DIFF WBC 04/30/2021 12:00:00 AM [facility] MAGNESIUM 04/30/2021 12:00:00 AM [facility] COMPREHENSIVE METABOLIC PANEL COMPREHEN METABOLIC PANEL 04/08 12:00:00 AM [facility] Injection, magnesium sulfate, per 500 mg 04/30/2021 12 :00:00 AM [facility] Non-covered item or service NON-COVERED ITEM OR SERVICE 04/08 12:00:00 AM [facility] Injection, morphine sulfate, up to 10 mg 04/30/2021 12 :00:00 AM [facility] OFFICE OUTPATIENT NEW 45 MINUTES 04/27/2021 12:00:00 A M EDT [facility] ([facility], ) OFFICE OUTPATIENT NEW 45 MINUTES 04/27/2021 12:00:00 A M [facility] ([facility], ) CT THORAX W/CONTRAST MATERIAL CT THORAX W/DYE 03/21/2021 12:00:00 A M [facility] Low osmolar contrast material, 300-399 mg/ml iodine co ncentration, per ml Locm 300-399mg/ml iodine,1ml Long 03/21/2021 12:00:00 AM [facility] [address] X-RAY EXAM CHEST 1 VIEW 03/21/2021 12:00:00 AM [facility] ECG ROUTINE ECG W/LEAST 12 LDS TRCG ONLY W/O I&R ELECTROCARD IOGRAM TRACING 03/21/2021 12:00:00 AM [facility] [address] SARS-COV-2 COVID-19 AMP PRB 03/21/2021 12:00:00 AM [facility] COLLECTION VENOUS BLOOD VENIPUNCTURE ROUTINE VENIPUNCTURE 12:00:00 AM [facility] THROMBOPLASTIN TIME PARTIAL PLASMA/WHOLE BLOOD THROMBOPLASTI N TIME PARTIAL 03/21/2021 12:00:00 AM [facility] NATRIURETIC PEPTIDE ASSAY OF NATRIURETIC PEPTIDE 03/21/2021 12:00:0 0 AM [facility] TROPONIN QUANTITATIVE ASSAY OF TROPONIN QUANT 03/21/2021 12:00:00 A M [facility] LIPASE ASSAY OF LIPASE 03/21/2021 12:00:00 AM [facility] FIBRIN DGRADJ PRODUCTS D-DIMER QUANTITATIVE FIBRIN DEGRADATI ON QUANT 03/21/2021 12:00:00 AM [facility] PRESSURIZED/NONPRESSURIZED INHALATION TREATMENT AIRWAY INHAL ATION TREATMENT 03/21/2021 12:00:00 AM [facility] EMERGENCY DEPT VISIT HIGH SEVERITY&THREAT FUNCJ EMERGENCY DE PT VISIT 03/21/2021 12:00:00 AM [facility] outpatient clinic visit for assessment and ma nagement of a patient Hospital Outpatient Clinic Visit 02/20/2021 12:00:00 AM [facility] EMERGENCY DEPARTMENT VISIT MODERATE SEVERITY EMERGENCY DEPT VISIT 02/14/2021 12:00:00 AM EDT [facility] PHOSPHORUS INORGANIC <td>PHOSPHORUS</td><td>STAT< /td><td>02/03/2021 11:55 AM EDT</td><td></td><td> </td> 02/03/2021 11:55:00 AM EDT [facility] MAGNESIUM <td>MAGNESIUM</td><td>STAT</ td><td>02/03/2021 11:55 AM EDT</td><td></td><td> </td> 02/03/2021 11:55:00 AM EDT [facility] BLOOD COUNT HEMATOCRIT <td>HEMATOCRIT</td><td>Timed </td><td>02/02/2021 6:31 AM EDT</td><td></td><td> </td> 02/02/2021 06:31:00 AM EDT [facility] URNLS DIP STICK/TABLET REAGENT AUTO MICROSCOPY <td>URI NALYSIS, MICROSCOPIC ONLY</td><td>Routine</td><td>02/01/2021 3:00 PM EDT</td><td></td><td> </td> 02/01/2021 03:00:00 PM EDT [facility] BLOOD COUNT HEMATOCRIT <td>HEMATOCRIT</td><td>Timed </td><td>02/01/2021 5:01 AM EDT</td><td></td><td> </td> 02/01/2021 05:01:00 AM EDT [facility] BLOOD COUNT COMPLETE AUTOMATED <td>CBC</td><td>Routine </td><td>01/31/2021 5:00 AM EDT</td><td></td><td> </td> 01/31/2021 05:00:00 AM EDT [facility] BASIC METABOLIC PANEL CALCIUM TOTAL <td>BASIC METABOLI C PANEL</td><td>Routine</td><td>01/31/2021 5:00 AM EDT</td><td></td><td> </td> 01/31/2021 05:00:00 AM EDT [facility] RADEX SPINE 1 VIEW SPECIFY LEVEL <td>XR OR SPINE LUMBA R CONTINUATION</td><td>STAT</td><td>01/30/2021 3:13 PM EDT</td><td></td><td> </td> 01/30/2021 03:13:14 PM EDT [facility] XR OR SPINE LUMBAR <td>XR OR SPINE LUMBAR</td>< td>STAT</td><td>01/30/2021 11:57 AM EDT</td><td></td><td> </td> 01/30/2021 11:57:41 AM EDT [facility] KAM FACETEC&FORAMOT 1 SEGMENT LUMBAR <td>LAMINECTOMY, SPINE, THORACOLUMBAR, 3 OR MORE LEVELS, WITH DECOMPRESSION</td><td></td><td>01/30/2021 11:17 AM EDT</td><td> Degenerative lumbar disc Spinal stenosis of lumbar region with neurogenic claudication</td><td></td> 01/30/2021 11:17:00 AM EDT - 01/30/2021 02:59:00 PM EDT Spinal stenosis of lumbar region with neurogenic claudicationDegenerative lumbar disc [facility] Spinal stenosis of lumbar region with ne urogenic claudication Degenerative lumbar disc THROMBOPLASTIN TIME PARTIAL PLASMA/WHOLE BLOOD <td>APTT</td><td>Routine</td><td>01/25/2021 10:55 AM EDT</td><td> Degenerative lumbar disc Spinal stenosis of lumbar region with neurogenic claudication</td><td> </td> 01/25/2021 10:55:00 AM EDT Spinal stenosis of lumbar region with ne urogenic claudicationDegenerative lumbar disc [facility] Spinal stenosis of lumbar region with ne urogenic claudication Degenerative lumbar disc PROTHROMBIN TIME <td>PROTIME-INR</td><td>Rout ine</td><td>01/25/2021 10:55 AM EDT</td><td> Degenerative lumbar disc Spinal stenosis of lumbar region with neurogenic claudication</td><td> </td> 01/25/2021 10:55:00 AM EDT Spinal stenosis of lumbar region with ne urogenic claudicationDegenerative lumbar disc [facility] Spinal stenosis of lumbar region with ne urogenic claudication Degenerative lumbar disc BLOOD COUNT COMPLETE AUTOMATED <td>CBC</td><td>Routine </td><td>01/25/2021 10:55 AM EDT</td><td> Degenerative lumbar disc Spinal stenosis of lumbar region with neurogenic claudication</td><td> </td> 01/25/2021 10:55:00 AM EDT Spinal stenosis of lumbar region with ne urogenic claudicationDegenerative lumbar disc [facility] Spinal stenosis of lumbar region with ne urogenic claudication Degenerative lumbar disc BLOOD TYPING ABO <td>TYPE AND SCREEN</td><td> Routine</td><td>01/25/2021 10:55 AM EDT</td><td> Degenerative lumbar disc Spinal stenosis of lumbar region with neurogenic claudication</td><td> </td> 01/25/2021 10:55:00 AM EDT Spinal stenosis of lumbar region with ne urogenic claudicationDegenerative lumbar disc [facility] Spinal stenosis of lumbar region with ne urogenic claudication Degenerative lumbar disc HEMOGLOBIN GLYCOSYLATED A1C <td>HEMOGLOBIN A1C</td><td>Routine</td><td>01/25/2021 10:55 AM EDT</td><td> Degenerative lumbar disc Spinal stenosis of lumbar region with neurogenic claudication</td><td> </td> 01/25/2021 10:55:00 AM EDT Spinal stenosis of lumbar region with ne urogenic claudicationDegenerative lumbar disc [facility] Spinal stenosis of lumbar region with ne urogenic claudication Degenerative lumbar disc COMPREHENSIVE METABOLIC PANEL <td>COMPREHENSIVE METABO LIC PANEL</td><td>Routine</td><td>01/25/2021 10:55 AM EDT</td><td> Degenerative lumbar disc Spinal stenosis of lumbar region with neurogenic claudication</td><td> </td> 01/25/2021 10:55:00 AM EDT Spinal stenosis of lumbar region with ne urogenic claudicationDegenerative lumbar disc [facility] Spinal stenosis of lumbar region with ne urogenic claudication Degenerative lumbar disc OFFICE OUTPATIENT VISIT 25 MINUTES 01/03/2021 12:00:00 AM [facility] ([facility], ) Laryngoscopy Direct Biopsy W/Operating Microscope 12/26/2020 12:00:00 AM [facility] ([facility], ) LARYNGOSCOPY FLEXIBLE FIBEROPTIC DIAGNOSTIC 12/15/2020 12:00:00 AM [facility] ([facility], ) OFFICE OUTPATIENT NEW 45 MINUTES 12/15/2020 12:00:00 A M [facility] ([facility], ) ECHO TTHRC R-T 2D W/WOM-MODE COMPL SPEC&COLR DOP TTE W/DOPPL ER COMPLETE 12/06/2020 12:00:00 AM [facility] Injection, perflutren lipid microspheres, per ml 12/06 12:00:00 AM [facility] Technetium tc-99m sestamibi, diagnostic, per study dose 11/29/2020 12:00:00 AM [facility] MYOCARDIAL SPECT MULTIPLE STUDIES HT MUSCLE IMAGE SPECT MULT 11/29/2020 12:00:00 AM EDT [facility] CV STRS TST XERS&/OR RX CONT ECG TRCG ONLY CARDIOVASCULAR ST RESS TEST 11/29/2020 12:00:00 AM EDT [facility] Injection, regadenoson, 0.1 mg 11/29/2020 12:00:00 AM EDT [facility] ECG ROUTINE ECG W/LEAST 12 LDS TRCG ONLY W/O I&R ELECTROCARD IOGRAM TRACING 11/11/2020 12:00:00 AM EDT [facility] ECG ROUTINE ECG W/LEAST 12 LDS TRCG ONLY W/O I&R <td>E CG 12- LEAD</td><td>Routine</td><td>11/09/2020 12:45 PM EDT</td><td> Other intervertebral disc degeneration, lumbar region Spinal stenosis of lumbar region with neurogenic claudication</td><td></td> 11/09/2020 12:45:32 PM EDT Spinal stenosis of lumbar region with ne urogenic claudicationOther intervertebral disc degeneration, lumbar region [facility] Spinal stenosis of lumbar region with ne urogenic claudication Other intervertebral disc degeneration, lumbar region BILIRUBIN UNCONJ (INDIRECT) <td>BILIRUBIN UNCONJ (INDIRECT)</td><td>Routine</td><td>11/09/2020 12:35 PM EDT</td><td></td><td> </td> 11/09/2020 12:35:00 PM EDT [facility] THROMBOPLASTIN TIME PARTIAL PLASMA/WHOLE BLOOD <td>APTT</td><td>Routine</td><td>11/09/2020 12:35 PM EDT</td><td> Other intervertebral disc degeneration, lumbar region Spinal stenosis of lumbar region with neurogenic claudication</td><td> </td> 11/09/2020 12:35:00 PM EDT Spinal stenosis of lumbar region with ne urogenic claudicationOther intervertebral disc degeneration, lumbar region [facility] Spinal stenosis of lumbar region with ne urogenic claudication Other intervertebral disc degeneration, lumbar region PROTHROMBIN TIME <td>PROTIME-INR</td><td>Rout ine</td><td>11/09/2020 12:35 PM EDT</td><td> Other intervertebral disc degeneration, lumbar region Spinal stenosis of lumbar region with neurogenic claudication</td><td> </td> 11/09/2020 12:35:00 PM EDT Spinal stenosis of lumbar region with ne urogenic claudicationOther intervertebral disc degeneration, lumbar region [facility] Spinal stenosis of lumbar region with ne urogenic claudication Other intervertebral disc degeneration, lumbar region BLOOD COUNT COMPLETE AUTOMATED <td>CBC</td><td>Routine </td><td>11/09/2020 12:35 PM EDT</td><td> Other intervertebral disc degeneration, lumbar region Spinal stenosis of lumbar region with neurogenic claudication</td><td> </td> 11/09/2020 12:35:00 PM EDT Spinal stenosis of lumbar region with ne urogenic claudicationOther intervertebral disc degeneration, lumbar region [facility] Spinal stenosis of lumbar region with ne urogenic claudication Other intervertebral disc degeneration, lumbar region BLOOD TYPING ABO <td>TYPE AND SCREEN</td><td> Routine</td><td>11/09/2020 12:35 PM EDT</td><td> Other intervertebral disc degeneration, lumbar region Spinal stenosis of lumbar region with neurogenic claudication</td><td> </td> 11/09/2020 12:35:00 PM EDT Spinal stenosis of lumbar region with ne urogenic claudicationOther intervertebral disc degeneration, lumbar region [facility] Spinal stenosis of lumbar region with ne urogenic claudication Other intervertebral disc degeneration, lumbar region HEMOGLOBIN GLYCOSYLATED A1C <td>HEMOGLOBIN A1C</td><td>Routine</td><td>11/09/2020 12:35 PM EDT</td><td> Other intervertebral disc degeneration, lumbar region Spinal stenosis of lumbar region with neurogenic claudication</td><td> </td> 11/09/2020 12:35:00 PM EDT Spinal stenosis of lumbar region with ne urogenic claudicationOther intervertebral disc degeneration, lumbar region [facility] Spinal stenosis of lumbar region with ne urogenic claudication Other intervertebral disc degeneration, lumbar region BILIRUBIN DIRECT <td>BILIRUBIN, DIRECT</td><t d>Routine</td><td>11/09/2020 12:35 PM EDT</td><td></td><td> </td> 11/09/2020 12:35:00 PM EDT [facility] COMPREHENSIVE METABOLIC PANEL <td>COMPREHENSIVE METABO LIC PANEL</td><td>Routine</td><td>11/09/2020 12:35 PM EDT</td><td> Other intervertebral disc degeneration, lumbar region Spinal stenosis of lumbar region with neurogenic claudication</td><td> </td> 11/09/2020 12:35:00 PM EDT Spinal stenosis of lumbar region with ne urogenic claudicationOther intervertebral disc degeneration, lumbar region [facility] Spinal stenosis of lumbar region with ne urogenic claudication Other intervertebral disc degeneration, lumbar region Results ID Date Data Source [id number] 05/05/2021 07:58:00 AM EDT [facility] Name Value Range Interpretation Code Description Data Simran rce(s) Supporting Document(s) Sodium 130 mmol/L 136-145 Below low normal [facility] Potassium 3.5-5.1 Normal (applies to non-numeric resul ts) [facility] Chloride 94 mmol/L 98-107 Below low normal [facility] Carbon Dioxide CO2 21-32 Normal (applies to non-numer ic results) [facility] Anion Gap 5.0-16.0 Normal (applies to non-numeric resul ts) [facility] BUN 20 mg/dL 7-18 Above high normal [facility] Creatinine,Serum 0.8-1.5 Normal (applies to non-numeric results) [facility] GFR >60 Normal (applies to non-numeric results) [facility] Glucose Level 93 mg/dL 60-99 Normal (applies to non-numeric re sults) [facility] Reference range is only applicable when patient is fasting Note the following drug interference: Sulfasalazine Sulfapyridine Can see falsely depressed Can see falsely elevated result with up to 17% results with up to 11% decrease in measurement increase in measurement Recommend patients be collected for this test prior to administration of either drug. Calcium 8.5-10.1 Normal (applies to non-numeric resul ts) [facility] Bilirubin,Total 0.1-1.9 Normal (applies to non-numeric results) [facility] SGOT(AST) 44 U/L 15-37 Above high normal [facility] Note the following drug interference: Sulfasalazine Sulfapyridine Can see falsely depressed Can see falsely elevated result with up to 10% results with up to 10% decrease in measurement increase in measurement Recommend patients be collected for this test prior to administration of either drug. SGPT(ALT) 21 U/L 12-78 Normal (applies to non-numeric resul ts) [facility] Note the following drug interference: Sulfasalazine Sulfapyridine Can see falsely depressed Can see falsely elevated result with up to 29% results with up to 10% decrease in measurement increase in measurement Recommend patients be collected for this test prior to administration of either drug. Alkaline Phosphatase 78 U/L 38-126 Normal (applies to non-num angelia results) [facility] can increase Alkaline Phosp le vels up to 2 times the normal adult value. Normal values for children and adolescents are 2 to 3 times the normal adult value. Total Protein 6.0-8.2 Normal (applies to non-numeric re sults) [facility] Albumin Level 3.4-5.0 Below low normal [facility] ID Date Data Source [id number] 05/05/2021 06:51:00 AM EDT [facility] Name Value Range Interpretation Code Description Data Simran rce(s) Supporting Document(s) White Blood Count 3.5-10.5 Normal (applies to non-numeri c results) [facility] Red Blood Count 4.30-5.70 Below low normal [facility] Hemoglobin 13.5-17.5 Below low normal [facility] Hematocrit 38.8-50.0 Below low normal [facility] Mean Corpuscular Volume 81.2-95.1 Above high normal [facility] Mean Corpuscular Hgb 25.6-32.2 Normal (applies to non-num angelia results) [facility] Mean Corpuscular Hgb Conc 32.0-36.0 Below low normal [facility] Red Cell Distribution Width 11.8-15.6 Above high normal [facility] Platelet Count 194 x10 3/uL 150-450 Normal (applies to non-numeric results) [facility] Mean Platelet Volume 9.4-12.4 Normal (applies to non-num angelia results) [facility] Neutrophils% (Auto) 31.0-71.0 Normal (applies to non-nume max results) [facility] Lymphocytes% (Auto) 20.0-55.0 Below low normal [facility] Monocytes% (Auto) 4.0-12.0 Normal (applies to non-numeri c results) [facility] Eosinophils% (Auto) 1.0-8.0 Normal (applies to non-nume max results) [facility] Basophils% (Auto) 0.0-2.0 Normal (applies to non-numeri c results) [facility] Immature Granulocytes% (Auto) 0.0-2.0 Normal (trey lies to non-numeric results) [facility] Neutrophils# (Auto) 1.50-6.20 Normal (applies to non-nume max results) [facility] Lymphocytes# (Auto) 1.20-4.00 Normal (applies to non-nume max results) [facility] Monocytes# (Auto) 0.00-0.90 Normal (applies to non-numeri c results) [facility] Eosinophils# (Auto) 0.00-0.50 Normal (applies to non-nume max results) [facility] Basophils# (Auto) 0.00-0.20 Normal (applies to non-numeri c results) [facility] Immature Granulocytes# (Auto) 0.00-7.00 No rmal (applies to non-numeric results) [facility] ID Date Data Source [id number] 05/04/2021 06:04:00 PM EDT [facility] Name Value Range Interpretation Code Description Data Simran rce(s) Supporting Document(s) SARS-CoV-2 RNA Negative Normal (applies to non-numeric r esults) [facility] Negative results should be treated as pr [...] Certificate of Accreditation. Factsheets for healthcare providers: https://www.fda.gov/media/385341/download Factsheets for patients: https://www.fda.gov/media/612766/download The ID NOW Instrument is a rapid molecular in vitro diagnostic test utilizing an isothermal nucleic acid amplification technology intended for the qualitative detection of nucleic acid from the SARS-CoV-2 viral RNA. THIS IS A STATE REPORTABLE COMMUNICABLE DISEASE. Manual entry verified by Miah Medina 05/04/211802 ID Date Data Source [id number] 05/03/2021 07:52:00 AM EDT [facility] Name Value Range Interpretation Code Description Data Simran rce(s) Supporting Document(s) Sodium 130 mmol/L 136-145 Below low normal [facility] Potassium 3.5-5.1 Normal (applies to non-numeric resul ts) [facility] Chloride 93 mmol/L 98-107 Below low normal [facility] Carbon Dioxide CO2 21-32 Normal (applies to non-numer ic results) [facility] Anion Gap 5.0-16.0 Normal (applies to non-numeric resul ts) [facility] BUN 22 mg/dL 7-18 Above high normal [facility] Creatinine,Serum 0.8-1.5 Normal (applies to non-numeric results) [facility] GFR >60 Normal (applies to non-numeric results) [facility] Glucose Level 105 mg/dL 60-99 Above high normal [facility] Reference range is only applicable [...] Normal (applies to non-numeric resul ts) [facility] ID Date Data Source [id number] 05/02/2021 07:20:00 AM EDT [facility] Name Value Range Interpretation Code Description Data Simran rce(s) Supporting Document(s) White Blood Count 3.5-10.5 Above high normal [facility] Red Blood Count 4.30-5.70 Below low normal [facility] Hemoglobin 13.5-17.5 Below low normal [facility] Hematocrit 38.8-50.0 Below low normal [facility] Mean Corpuscular Volume 81.2-95.1 Above high normal [facility] Mean Corpuscular Hgb 25.6-32.2 Normal (applies to non-num angelia results) [facility] Mean Corpuscular Hgb Conc 32.0-36.0 Below low normal [facility] Red Cell Distribution Width 11.8-15.6 Above high normal [facility] Platelet Count 210 x10 3/uL 150-450 Normal (applies to non-numeric results) [facility] Mean Platelet Volume 9.4-12.4 Normal (applies to non-num angelia results) [facility] Total Cells Counted (Manual) 100 Normal (applies to non-numeric results) [facility] Neutrophils% (Manual) 62 % 31-71 Normal (applies to non-nu meric results) [facility] Lymphocytes% (Manual) 27 % 20-55 Normal (applies to non-nu meric results) [facility] Monocytes% (Manual) 5 % 4-12 Normal (applies to non-nume max results) [facility] Eosinophils% (Manual) 2 % 1-8 Normal (applies to non-nu meric results) [facility] Basophils% (Manual) 1 % 0-2 Normal (applies to non-nume mxa results) [facility] Myelocytes% (Manual) 3 % 0-0 Above high normal [facility] Platelet Estimate (Manual) Agreement Normal (applie s to non-numeric results) [facility] Slide Reviewed By Normal (applies to non-numeri c results) [facility] Slide has been reviewed and findings con firmed by a technologist/power tool repair technician. ID Date Data Source [id number] 05/02/2021 07:13:00 AM EDT [facility] Name Value Range Interpretation Code Description Data Simran rce(s) Supporting Document(s) Sodium 129 mmol/L 136-145 Below low normal [facility] Potassium 3.5-5.1 Normal (applies to non-numeric resul ts) [facility] Chloride 92 mmol/L 98-107 Below low normal [facility] Carbon Dioxide CO2 21-32 Normal (applies to non-numer ic results) [facility] Anion Gap 5.0-16.0 Normal (applies to non-numeric resul ts) [facility] BUN 23 mg/dL 7-18 Above high normal [facility] Creatinine,Serum 0.8-1.5 Normal (applies to non-numeric results) [facility] GFR >60 Normal (applies to non-numeric results) [facility] Glucose Level 102 mg/dL 60-99 Above high normal [facility] Reference range is only applicable [...] Normal (applies to non-numeric resul ts) [facility] ID Date Data Source [id number] 05/02/2021 07:13:00 AM EDT [facility] Name Value Range Interpretation Code Description Data Simran rce(s) Supporting Document(s) Magnesium 1.8-2.4 Normal (applies to non-numeric resul ts) [facility] ID Date Data Source [id number] 05/01/2021 08:45:00 AM [facility] Name Value Range Interpretation Code Description Data Simran rce(s) Supporting Document(s) PT 9.1-10.8 Normal (applies to non-numeric results) [facility] INR Normal (applies to non-numeric results) [facility] The use of INR is restricted to patients on stable oral anticoagulant. Therapeutic Range: 2.0 - 3.0 High Risk Range: 2.5 - 3.5 ID Date Data Source [id number] 05/01/2021 08:45:00 AM [facility] Name Value Range Interpretation Code Description Data Simran rce(s) Supporting Document(s) PTT 23.5-34.6 Below low normal [facility] ID Date Data Source [id number] 05/01/2021 08:34:00 AM [facility] Name Value Range Interpretation Code Description Data Simran rce(s) Supporting Document(s) Sodium 131 mmol/L 136-145 Below low normal [facility] Potassium 3.5-5.1 Normal (applies to non-numeric resul ts) [facility] Chloride 96 mmol/L 98-107 Below low normal [facility] Carbon Dioxide CO2 21-32 Normal (applies to non-numer ic results) [facility] Anion Gap 5.0-16.0 Normal (applies to non-numeric resul ts) [facility] BUN 26 mg/dL 7-18 Above high normal [facility] Creatinine,Serum 0.8-1.5 Normal (applies to non-numeric results) [facility] GFR >60 Normal (applies to non-numeric results) [facility] Glucose Level 121 mg/dL 60-99 Above high normal [facility] Reference range is only applicable [...] Normal (applies to non-numeric resul ts) [facility] ID Date Data Source [id number] 05/01/2021 07:19:00 AM EDT [facility] Name Value Range Interpretation Code Description Data Simran rce(s) Supporting Document(s) White Blood Count 3.5-10.5 Above high normal [facility] Red Blood Count 4.30-5.70 Below low normal [facility] Hemoglobin 13.5-17.5 Below low normal [facility] Hematocrit 38.8-50.0 Below low normal [facility] Mean Corpuscular Volume 81.2-95.1 Normal (applies to non- numeric results) [facility] Mean Corpuscular Hgb 25.6-32.2 Normal (applies to non-num angelia results) [facility] Mean Corpuscular Hgb Conc 32.0-36.0 Normal (applies to no n-numeric results) [facility] Red Cell Distribution Width 11.8-15.6 Normal (appli es to non-numeric results) [facility] Platelet Count 193 x10 3/uL 150-450 Normal (applies to non-numeric results) [facility] Mean Platelet Volume 9.4-12.4 Normal (applies to non-num angelia results) [facility] Neutrophils% (Auto) 31.0-71.0 Normal (applies to non-nume max results) [facility] Lymphocytes% (Auto) 20.0-55.0 Below low normal [facility] Monocytes% (Auto) 4.0-12.0 Normal (applies to non-numeri c results) [facility] Eosinophils% (Auto) 1.0-8.0 Normal (applies to non-nume max results) [facility] Basophils% (Auto) 0.0-2.0 Normal (applies to non-numeri c results) [facility] Immature Granulocytes% (Auto) 0.0-2.0 Normal (trey lies to non-numeric results) [facility] Neutrophils# (Auto) 1.50-6.20 Above high normal [facility] Lymphocytes# (Auto) 1.20-4.00 Normal (applies to non-nume max results) [facility] Monocytes# (Auto) 0.00-0.90 Above high normal [facility] Eosinophils# (Auto) 0.00-0.50 Normal (applies to non-nume max results) [facility] Basophils# (Auto) 0.00-0.20 Normal (applies to non-numeri c results) [facility] Immature Granulocytes# (Auto) 0.00-7.00 No rmal (applies to non-numeric results) [facility] ID Date Data Source [id number] 05/02/2021 03:30:00 PM EDT [facility] Imaging Services Department Imaging Report [address], [place] [address] %(RAD)RES..mtdd.print.filter("line") Name: SEBASTIAN FOFANA : 1955 Age/Sex: 65M Ordering Provider: Sebastian Mars, Med Rec #: [id number] Reg Status: ADM IN Room #: 156-2 Date of Service: 05/01/21 Report Number: [id number] cc:Sebastian Olivarez Reason, DO; Natanael Rosales MD Send Report To: [id number] US/US Dup Upper Ext Vein Lt Reason for exam: Swelling left arm/Fractured humerus Technique: Ultrasound imaging performed using color flow and spectral Doppler interrogation. FINDINGS: Duplex sonography of the major deep venous system to the left upper extremity does not well evaluate the proximal brachial vein due to marked soft tissue swelling. There is no other evidence of DVT demonstrated on the currentstudy. Duplex color sonography does demonstrate flow and compressibility where possible in the subclavian, axial and visualized portions of the mid and distal brachial vein. Again, the proximal brachial vein is not adequately visualized. IMPRESSION: Limited evaluation of the proximal brachial vein due to soft tissueswelling. There is otherwise no evidence of DVT demonstrated on the current study. REPORT SIGNATURE ON FILE Reported By: David De Los Santos MD <Electronically signed by David De Los Santos MD> 05/03/21 1138 Dictation Date/Time: 05/01/21 1745 Transcribed Date/Time: 05/02/21 1530 Ditch Tender: AMELIA Name Value Range Interpretation Code Description Data Simran rce(s) Supporting Document(s) ID Date Data Source [id number] 04/30/2021 01:16:00 PM [facility] Name Value Range Interpretation Code Description Data Simran rce(s) Supporting Document(s) PT 9.1-10.8 Above high normal [facility] INR Normal (applies to non-numeric results) [facility] The use of INR is restricted to patients on stable oral anticoagulant. Therapeutic Range: 2.0 - 3.0 High Risk Range: 2.5 - 3.5 ID Date Data Source [id number] 04/30/2021 01:15:00 PM [facility] Name Value Range Interpretation Code Description Data Simran rce(s) Supporting Document(s) Sodium 126 mmol/L 136-145 Below low normal [facility] Potassium 3.5-5.1 Normal (applies to non-numeric resul ts) [facility] Chloride 89 mmol/L 98-107 Below low normal [facility] Carbon Dioxide CO2 21-32 Normal (applies to non-numer ic results) [facility] Anion Gap 5.0-16.0 Normal (applies to non-numeric resul ts) [facility] BUN 26 mg/dL 7-18 Above high normal [facility] Creatinine,Serum 0.8-1.5 Normal (applies to non-numeric results) [facility] GFR 54 mL/min >60 Below low normal [facility] Glucose Level 115 mg/dL 60-99 Above high normal [facility] Reference range is only applicable [...] Normal (applies to non-numeric resul ts) [facility] Bilirubin,Total 0.1-1.9 Normal (applies to non-numeric results) [facility] SGOT(AST) 61 U/L 15-37 Above high normal [facility] Note the following drug interference: Sulfasalazine Sulfapyridine Can see falsely depressed Can see falsely elevated result with up to 10% results with up to 10% decrease in measurement increase in measurement Recommend patients be collected for this test prior to administration of either drug. SGPT(ALT) 23 U/L 12-78 Normal (applies to non-numeric resul ts) [facility] Note the following drug interference: Sulfasalazine Sulfapyridine Can see falsely depressed Can see falsely elevated result with up to 29% results with up to 10% decrease in measurement increase in measurement Recommend patients be collected for this test prior to administration of either drug. Alkaline Phosphatase 67 U/L 38-126 Normal (applies to non-num angelia results) [facility] can increase Alkaline Phosp le vels up to 2 times the normal adult value. Normal values for children and adolescents are 2 to 3 times the normal adult value. Total Protein 6.0-8.2 Normal (applies to non-numeric re sults) [facility] Albumin Level 3.4-5.0 Below low normal [facility] ID Date Data Source [id number] 04/30/2021 01:15:00 PM EDT [facility] Name Value Range Interpretation Code Description Data Simran rce(s) Supporting Document(s) Magnesium 1.8-2.4 Below low normal [facility] ID Date Data Source [id number] 04/30/2021 12:59:00 PM EDT [facility] Name Value Range Interpretation Code Description Data Simran rce(s) Supporting Document(s) White Blood Count 3.5-10.5 Above high normal [facility] Red Blood Count 4.30-5.70 Below low normal [facility] Hemoglobin 13.5-17.5 Below low normal [facility] Hematocrit 38.8-50.0 Below low normal [facility] Mean Corpuscular Volume 81.2-95.1 Normal (applies to non- numeric results) [facility] Mean Corpuscular Hgb 25.6-32.2 Normal (applies to non-num angelia results) [facility] Mean Corpuscular Hgb Conc 32.0-36.0 Normal (applies to no n-numeric results) [facility] Red Cell Distribution Width 11.8-15.6 Normal (appli es to non-numeric results) [facility] Platelet Count 233 x10 3/uL 150-450 Normal (applies to non-numeric results) [facility] Mean Platelet Volume 9.4-12.4 Normal (applies to non-num angelia results) [facility] Neutrophils% (Auto) 31.0-71.0 Normal (applies to non-nume max results) [facility] Lymphocytes% (Auto) 20.0-55.0 Below low normal [facility] Monocytes% (Auto) 4.0-12.0 Normal (applies to non-numeri c results) [facility] Eosinophils% (Auto) 1.0-8.0 Normal (applies to non-nume max results) [facility] Basophils% (Auto) 0.0-2.0 Normal (applies to non-numeri c results) [facility] Immature Granulocytes% (Auto) 0.0-2.0 Normal (trey lies to non-numeric results) [facility] Neutrophils# (Auto) 1.50-6.20 Above high normal [facility] Lymphocytes# (Auto) 1.20-4.00 Normal (applies to non-nume max results) [facility] Monocytes# (Auto) 0.00-0.90 Above high normal [facility] Eosinophils# (Auto) 0.00-0.50 Normal (applies to non-nume max results) [facility] Basophils# (Auto) 0.00-0.20 Normal (applies to non-numeri c results) [facility] Immature Granulocytes# (Auto) 0.00-7.00 No rmal (applies to non-numeric results) [facility] ID Date Data Source [id number] 04/30/2021 12:35:00 PM EDT [facility] Name Value Range Interpretation Code Description Data Simran rce(s) Supporting Document(s) Respiratory specimen severe acute respir atory syndrome coronavirus 2 (SARS-CoV-2) RNA Not Detected [facility] This lab was ordered by [facility] leon and reported by . ID Date Data Source [id number] 04/30/2021 01:41:00 PM EDT [facility] Name Value Range Interpretation Code Description Data Simran rce(s) Supporting Document(s) RP Internal Control Passed Normal (applies to non-nume max results) [facility] Adenovirus None Detect Normal (applies to non-numeric resu lts) [facility] Coronavirus 229E None Detect Normal (applies to non-numeri c results) [facility] Coronavirus HKU1 None Detect Normal (applies to non-numeri c results) [facility] Coronavirus NL63 None Detect Normal (applies to non-numeri c results) [facility] Coronavirus OC43 None Detect Normal (applies to non-numeri c results) [facility] SARS-CoV-2 Not Detect Normal (applies to non-numeric resul ts) [facility] Negative results do not preclude SARS-Co V-2 infection and should not be used as the sole basis for treatment or other patient management decisions. Negative results must be combined with clinical observations, patient history, and epidemiological information. Testing was performed using the [employer] real-time nested multiplexed PCR Respiratory Panel 2.1 This test has not been FDA cleared or approved. This test has been authorized by FDA under an (Emergency Use Authorization) EUA for use by authorized laboratories. This test is only authorized for the duration of the declaration that circumstances exist justifying the authorization of emergency use of in vitro diagnostic tests for detection and/or diagnosis of SARS-CoV-2. Fact sheets for this EUA assay can be found at the following links: General: https://www.cdc.gov/COVID19 Healthcare Professionals: https://www.cdc.gov/coronavirus/2019-nCoV/guidance-hcp.html THIS IS A STATE REPORTABLE COMMUNICABLE DISEASE. Human Metapneumovirus None Detect Normal (applies to non-n umeric results) [facility] Rhino/Enterovirus None Detect Normal (applies to non-numer ic results) [facility] Influenza A None Detect Normal (applies to non-numeric res ults) [facility] Influenza B None Detect Normal (applies to non-numeric res ults) [facility] Parainfluenza Virus 1 None Detect Normal (applies to non-n umeric results) [facility] Parainfluenza Virus 2 None Detect Normal (applies to non-n umeric results) [facility] Parainfluenza Virus 3 None Detect Normal (applies to non-n umeric results) [facility] Parainfluenza Virus 4 None Detect Normal (applies to non-n umeric results) [facility] Respiratory Syncytial Virus None Detect Norm al (applies to non-numeric results) [facility] Bordetella Parapertussis None Detect Normal (applies to non-numeric results) [facility] Bordetella Pertussis None Detect Normal (applies to non-nu meric results) [facility] Chlamydia Pneumoniae None Detect Normal (applies to non-nu meric results) [facility] Mycoplasma Pneumoniae None Detect Normal (applies to non-n umeric results) [facility] Methodology: Multiplexed PCR Refer ence Range: None detected ID Date Data Source [id number] 03/22/2021 07:21:00 AM EDT [facility] Name Value Range Interpretation Code Description Data Simran rce(s) Supporting Document(s) Troponin I 0.000-0.056 Normal (applies to non-numeric resu lts) [facility] ID Date Data Source [id number] 03/22/2021 01:28:00 AM EDT [facility] Imaging Services Department Imaging Report [address], [place] [address] %(RAD)RES..mtdd.print.filter("line") Name: SEBASTIAN FOFANA : 1955 Age/Sex: 65M Ordering Provider: ROSI Poon Med Rec #: [id number] Reg Status: REG ER Room #: Date of Service: 03/21/21 Report Number: [id number] cc:ROSI Poon; Natanael Rosales MD Send Report [...] 03/22/21127 Dictation Date/Time: 03/22/21127 Transcribed Date/Time: 03/22/21127 Ditch Tender: Name Value Range Interpretation Code Description Data Simran rce(s) Supporting Document(s) ID Date Data Source [id number] 03/21/2021 11:09:00 PM EDT [facility] Name Value Range Interpretation Code Description Data Simran rce(s) Supporting Document(s) Troponin I 0.000-0.056 Normal (applies to non-numeric resu lts) [facility] ID Date Data Source [id number] 03/21/2021 09:10:00 PM EDT [facility] Name Value Range Interpretation Code Description Data Simran rce(s) Supporting Document(s) Respiratory specimen severe acute respir atory syndrome coronavirus 2 (SARS-CoV-2) RNA Negative (qualifier value) [facility] This lab was ordered by [facility] leon and reported by . ID Date Data Source [id number] 03/21/2021 09:42:00 PM EDT [facility] Name Value Range Interpretation Code Description Data Simran rce(s) Supporting Document(s) SARS-CoV-2 RNA Negative Normal (applies to non-numeric r esults) [facility] Negative results should be treated as pr [...] Certificate of Accreditation. Factsheets for healthcare providers: https://www.fda.gov/media/472425/download Factsheets for patients: https://www.fda.gov/media/388895/download The ID NOW Instrument is a rapid molecular in vitro diagnostic test utilizing an isothermal nucleic acid amplification technology intended for the qualitative detection of nucleic acid from the SARS-CoV-2 viral RNA. THIS IS A STATE REPORTABLE COMMUNICABLE DISEASE. Manual entry verified by Arabella Tan 03/21/212140 ID Date Data Source [id number] 03/21/2021 11:09:00 PM EDT [facility] Name Value Range Interpretation Code Description Data Simran rce(s) Supporting Document(s) D-Dimer,Quant 0.19-0.50 Above high normal [facility] The negative predictive value for [...] on anticoagulant therapy. ID Date Data Source [id number] 03/21/2021 10:32:00 PM EDT [facility] Name Value Range Interpretation Code Description Data Simran rce(s) Supporting Document(s) PT 9.1-10.8 Above high normal [facility] INR Normal (applies to non-numeric results) [facility] The use of INR is restricted to patients on stable oral anticoagulant. Therapeutic Range: 2.0 - 3.0 High Risk Range: 2.5 - 3.5 ID Date Data Source [id number] 03/21/2021 10:32:00 PM [facility] Name Value Range Interpretation Code Description Data Simran rce(s) Supporting Document(s) PTT 23.5-34.6 Normal (applies to non-numeric results) [facility] ID Date Data Source [id number] 03/21/2021 07:43:00 PM [facility] Name Value Range Interpretation Code Description Data Sirman rce(s) Supporting Document(s) B-Type Natriuretic Peptide BNP <125 Above high normal [facility] Results of this test should always be us ed in conjunction with the patients medical history, clinical presentation, and other findings. ID Date Data Source [id number] 03/21/2021 07:43:00 PM [facility] Name Value Range Interpretation Code Description Data Simran rce(s) Supporting Document(s) Sodium 134 mmol/L 136-145 Below low normal [facility] Potassium 3.5-5.1 Normal (applies to non-numeric resul ts) [facility] Chloride 92 mmol/L 98-107 Below low normal [facility] Carbon Dioxide CO2 21-32 Normal (applies to non-numer ic results) [facility] Anion Gap 5.0-16.0 Normal (applies to non-numeric resul ts) [facility] BUN 29 mg/dL 7-18 Above high normal [facility] Creatinine,Serum 0.8-1.5 Normal (applies to non-numeric results) [facility] GFR >60 Normal (applies to non-numeric results) [facility] Glucose Level 120 mg/dL 60-99 Above high normal [facility] Reference range is only applicable [...] Normal (applies to non-numeric resul ts) [facility] Bilirubin,Total 0.1-1.9 Normal (applies to non-numeric results) [facility] SGOT(AST) 63 U/L 15-37 Above high normal [facility] Note the following drug interference: Sulfasalazine Sulfapyridine Can see falsely depressed Can see falsely elevated result with up to 10% results with up to 10% decrease in measurement increase in measurement Recommend patients be collected for this test prior to administration of either drug. SGPT(ALT) 26 U/L 12-78 Normal (applies to non-numeric resul ts) [facility] Note the following drug interference: Sulfasalazine Sulfapyridine Can see falsely depressed Can see falsely elevated result with up to 29% results with up to 10% decrease in measurement increase in measurement Recommend patients be collected for this test prior to administration of either drug. Alkaline Phosphatase 79 U/L 38-126 Normal (applies to non-num angelia results) [facility] can increase Alkaline Phosp le vels up to 2 times the normal adult value. Normal values for children and adolescents are 2 to 3 times the normal adult value. Total Protein 6.0-8.2 Normal (applies to non-numeric re sults) [facility] Albumin Level 3.4-5.0 Below low normal [facility] ID Date Data Source [id number] 03/21/2021 07:43:00 PM EDT [facility] Name Value Range Interpretation Code Description Data Simran rce(s) Supporting Document(s) Troponin I 0.000-0.056 Normal (applies to non-numeric resu lts) [facility] ID Date Data Source [id number] 03/21/2021 07:43:00 PM EDT [facility] Name Value Range Interpretation Code Description Data Simran rce(s) Supporting Document(s) Lipase 31 U/L 73-393 Below low normal [facility] ID Date Data Source [id number] 03/21/2021 07:20:00 PM EDT [facility] Name Value Range Interpretation Code Description Data [facility] rce(s) Supporting Document(s) White Blood Count 3.5-10.5 Normal (applies to non-numeri c results) [facility] Red Blood Count 4.30-5.70 Normal (applies to non-numeric results) [facility] Hemoglobin 13.5-17.5 Normal (applies to non-numeric resul ts) [facility] Hematocrit 38.8-50.0 Normal (applies to non-numeric resul ts) [facility] Mean Corpuscular Volume 81.2-95.1 Normal (applies to non- numeric results) [facility] Mean Corpuscular Hgb 25.6-32.2 Normal (applies to non-num angelia results) [facility] Mean Corpuscular Hgb Conc 32.0-36.0 Normal (applies to no n-numeric results) [facility] Red Cell Distribution Width 11.8-15.6 Normal (appli es to non-numeric results) [facility] Platelet Count 188 x10 3/uL 150-450 Normal (applies to non-numeric results) [facility] Mean Platelet Volume 9.4-12.4 Normal (applies to non-num angelia results) [facility] Neutrophils% (Auto) 31.0-71.0 Normal (applies to non-nume max results) [facility] Lymphocytes% (Auto) 20.0-55.0 Below low normal [facility] Monocytes% (Auto) 4.0-12.0 Normal (applies to non-numeri c results) [facility] Eosinophils% (Auto) 1.0-8.0 Normal (applies to non-nume max results) [facility] Basophils% (Auto) 0.0-2.0 Normal (applies to non-numeri c results) [facility] Immature Granulocytes% (Auto) 0.0-2.0 Normal (trey lies to non-numeric results) [facility] Neutrophils# (Auto) 1.50-6.20 Normal (applies to non-nume max results) [facility] Lymphocytes# (Auto) 1.20-4.00 Normal (applies to non-nume max results) [facility] Monocytes# (Auto) 0.00-0.90 Normal (applies to non-numeri c results) [facility] Eosinophils# (Auto) 0.00-0.50 Normal (applies to non-nume max results) [facility] Basophils# (Auto) 0.00-0.20 Normal (applies to non-numeri c results) [facility] Immature Granulocytes# (Auto) 0.00-7.00 No rmal (applies to non-numeric results) [facility] ID Date Data Source [id number] 03/22/2021 05:07:00 AM EDT [facility] Imaging Services Department Imaging Report [address] [place], [place] [address] %(RAD)RES..mtdd.print.filter("line") Name: SEBASTIAN FOFANA : 1955 Age/Sex: 65M Ordering Provider: Krista Earl MD Med Rec #: [id number] Reg Status: DEP ER Room #: Date of Service: 03/21/21 Report Number: [id number] cc:Natanael Rosales MD Send Report To: [id number] XRP/XR Chest Xray Portable Reason for exam: [...] Jann Brody MD> 03/22/21 1031 Dictation Date/Time: 03/21/21 1945 Transcribed Date/Time: 03/22/21 0507 Ditch Tender: ROE Name Value Range Interpretation Code Description Data Simran rce(s) Supporting Document(s) ID Date Data Source [id number] 03/17/2021 01:38:33 PM EDT [facility] PCName: Sebastian PengB: 4Provider: Maira [...] as reviewed the official corresponding reports:MRI lumbar [facility] 12/01/2019: L3-4 right synovial cyst with [...] ent treatment conservative options(observation, medication(s), physical therapy, care worker, acupuncture, pain clinic, home exercise program, etc.)--- with pros and cons, potential risks/potential benefits of each option, as well as the chances of successes/failures of each option.At this time, they wish to proceed with:Home exercise program This document was dictated and electronically signed using Oneexchangestreet software. A reasonable attempt at proof reading has been made to minimize errors. Please call with any questions. Signatures Electronically signed by : Yesi Modi M.D.; Mar 17 2021 1:38PM EST (Author) Name Value Range Interpretation Code Description Data Simran rce(s) Supporting Document(s) ID Date Data Source [id number] 02/13/2021 02:35:53 PM EDT [facility] PCName: Dorindacolby AleksandarB: 4Provider: Liang Montgomery: 02/13/2021 Reason For Tonia Fofana is here today [...] document was dictated and electronically signed using Oneexchangestreet software. A reasonable attempt at proof reading has been made to minimize errors. Please call with any questions. Signatures Electronically signed by : Romulo Chan; Feb 13 2021 1:06PM EST (Author) Electronically signed by : Yesi Modi M.D.; Feb 13 2021 2:35PM EST Name Value Range Interpretation Code Description Data Simran rce(s) Supporting Document(s) ID Date Data Source [id number] 02/03/2021 04:29:34 PM EDT [facility] INFORMATIONPatient MRN Name Date of Age Gend*PT [id number] Sebastian Fofana 1955 65 years M IPPT Location Admission Date/Time Visit ID Attending [id number] 01/30/21 0852 --- Yesi Modi MD([id number]) EPI ID CSN Admitting Provider [id number] Yesi Modi MD([id number]) Attestation signed by Yesi Modi MD at 02/03/2021 4:29 PMSignature: CICI Quinonezate: February 03, 2021Time: 4:29 PM --ORTHOPEDIC DISCHARGE SUMMARYPatient Name: Sebastian Fofana of : 1955 Age 65 yearsPrimary Physician: Fernando Fernandes MD PCP Iyrhxdwnj Date: 01/30/2021 Discharge Date: 02/03/2021dmission Provider: Yesi [...] 5 SACRAL 1 LAMINECTOMY FORAMINOTOMIES (N/A) - [facility] Hospital Course:Patient was admitted through ambulatory unit. [...] details.Discharge disposition: He will be discharged from [facility] to home in stable condition.Discharge Weight [...] 140 (H) 01/31/2021ignificant Imaging:noneConsults:noneSignature: [phone]: February 03, 2021Time: 8:31 AM Name Value Range Interpretation Code Description Data Simran rce(s) Supporting Document(s) ID Date Data Source [id number] 02/03/2021 02:19:59 PM EDT [facility] Name Value Range Interpretation Code Description Data Simran rce(s) Supporting Document(s) PHOSPHORUS 3.7 mg/dL (2.5-4.5) [facility] ID Date Data Source [id number] 02/03/2021 02:19:59 PM EDT [facility] Name Value Range Interpretation Code Description Data Simran rce(s) Supporting Document(s) MAGNESIUM 1.8 mg/dL (1.7-2.4) [facility] ID Date Data Source [id number] 02/02/2021 08:18:04 AM EDT [facility] Name Value Range Interpretation Code Description Data Simran rce(s) Supporting Document(s) HCT 35.6 % (41.0-53.0) L [facility] ID Date Data Source [id number] 02/01/2021 05:02:40 PM EDT [facility] Name Value Range Interpretation Code Description Data Simran rce(s) Supporting Document(s) COLOR [facility] APPEARANCE [facility] SPEC GRAV URINE 1.013 (1.003-1.030) [facility] PH URINE 5.5 (5.0-7.5) [facility] LEUK ESTERASE (NEG) [facility] NITRITE URINE (NEG) [facility] PROTEIN URINE (NEG) [facility] GLUCOSE URINE (NEG) [facility] KETONE URINE (NEG) [facility] UROBILINOGEN 0.2 mg/dL (0-1.0) [facility] BILIRUBIN URINE (NEG) [facility] BLOOD/HGB URINE (NEG) [facility] EPITHELIAL CELLS (NEG) [facility] HYALINE CASTS 1.2 [LPF] (0-5) [facility] BACTERIA (NEG) [facility] URINE WBC 1.3 [HPF] (0-8) [facility] URINE RBC 0.5 [HPF] (0-3) [facility] ID Date Data Source [id number] 02/01/2021 06:00:53 AM EDT [facility] Name Value Range Interpretation Code Description Data Simran rce(s) Supporting Document(s) HCT 36.3 % (41.0-53.0) L [facility] ID Date Data Source [id number] 01/31/2021 05:58:15 AM EDT [facility] Name Value Range Interpretation Code Description Data Simran rce(s) Supporting Document(s) SODIUM 133 mmol/L (136-145) L [facility] POTASSIUM 4.8 mmol/L (3.6-5.2) [facility] CHLORIDE 93 mmol/L (100-108) L [facility] CO2 33 mmol/L (22-31) H [facility] ANION GAP 7 mmol/L (7-16) [facility] UREA NITROGEN 29 mg/dL (7-24) H [facility] CREATININE 1.54 mg/dL (0.80-1.30) H [facility] BUN/CREAT RATIO 18.8 RATIO (10.0-20.0) [facility] GLUCOSE 140 mg/dL (70-99) H [facility] CALCIUM 7.9 mg/dL (8.4-10.2) L [facility] GFR 45 ml/min/1.73m2 (>59) L [facility] GFR ( AMER) 55 ml/min/1.73m2 (>59) L [facility] GFR INTERPRETATION [facility] --NORMAL KIDNEY FUNCTION OR MILD DISEASE - GFR >OR= 60CHRONIC KIDNEY DISEASE - GFR 15 - 59RENAL FAILURE - GFR <15 Est. GFR calculation based on the MDRDstudy equation, which assumes a steadystate for creatinine. Est. GFR should notbe used for medication dosing. ID Date Data Source [id number] 01/31/2021 05:25:46 AM EDT [facility] Name Value Range Interpretation Code Description Data Simran rce(s) Supporting Document(s) WBC 7.1 10*3/uL (4.1-11.0) [facility] RBC 3.68 10*6/uL (4.60-6.10) L [facility] HGB 12.1 g/dL (13.5-18.0) L [facility] HCT 36.0 % (41.0-53.0) L [facility] PERFORMED AT [address] [place] [address] [address] [place] [address] MCV 98.0 fL (80.0-95.0) H [facility] MCH 33.0 pg (27.0-32.0) H [facility] MCHC 33.7 g/dL (32.0-36.0) [facility] RDW 14.6 % (10.5-14.5) H [facility] PLT 120 10*3/uL (150-450) L [facility] MPV 9.1 fL (7.1-10.7) [facility] ID Date Data Source [id number] 01/30/2021 03:17:02 PM EDT [address] [id number] Name: SEBASTIAN PENGB: 1955Sex: MOrdering Provider: YESI MODIAuthorizing Prov: YESI MODIReferrjuve Provider: Procedure Performed: / XR OR SPINE LUMBAR CONTINUATIONExam Date: 01/30/2021 15:13MRN: [id number] Number: [id number] Class: InpatientAccount #: [id number] for Exam: Degenerative lumbar disc [M51.36]Spinal stenosis of lumbar region with neurogenic claudication [M48.062]Technique: Lateral view obtained.Comparison: NoneFindings: Spine labeling performed from L1-S1. Superior localizer tip posterior to L3-L4 disc space and inferior localizer tip posterior to L5-S1 disc space.IMPRESSION: Intraoperative localization.Report electronically signed by: Alexander Quiñones On 01/30/2021 3:17 PMWorkstation ID: [id number] Name Value Range Interpretation Code Description Data Simran rce(s) Supporting Document(s) ID Date Data Source [id number] 01/30/2021 02:40:45 PM EDT [facility] NT INFORMATIONPatient MRN Name Date of Age Gend*PT [id number] Sebastian Fofana 1955 65 years M SDCXPT Location Ad[facility] Date[facility] --- Yesi Modi MD([id number]) EPI ID CSN Admitting Provider [id number] Yesi Modi MD([id number])Operative ReportPatient Name: Sebastian Fofana of : 1955 Age 65 yearsPrimary Physician: Fernando Fernandes MD PCP Qxmr of Surgery: 01/30/2021iagnostic InformationPre- Op Diagnosis: Lumbar rykjzrge-clwflliuxtdqjqAucd-Vr Diagnosis: SameProcedure(s) Procedure(s) with comments:LUMBAR 3 4 4 5 5 SACRAL 1 LAMINECTOMY FORAMINOTOMIES (N/A) - MEDTRONICSurgical StaffSurgeon: VERN Quinonezurgical Staff: OR Bus Driver Supervisor: Gonzalo Garcia, RN; So Gutierrez, JOSE ANTONIOurgical Assist: ROSI YingOR Relief Bus Driver Supervisor: Lyndsey Rogers RNOR Relief Scrub: Gaurav Crowe Scrub Person: Citlalli Gómez; Alexander Wilson Intensive Care Medicine Specialist is a Physician's Plow And Boring Machine Tender (ROSI), the Orthopedic Resident wasnot availableAnesthesiaAnesthesia Staff: Anesthesiologist: FORTINO BuitragoRNA: Vlad Marsh CRNAAnesthesia: *Anesthesia ServicesOperative DescriptionProcedure:1. L3 and L4 [...] the procedure, 3.5 loupe magnification was used.Physician assistant to the vice president needed to assist in a safe transfer [...] in the midline nicely each level. Physician assistant to the vice president needed for softtissue retraction, suctioning for visualization and for protection of theneuralelements during this part of the procedure.Again using the Kerrison rongeurs, lateral recesses were decompressed byperforming partial facetectomies and bilateral foraminotomies decompress thebilateral L3, L4, L5 and S1 nerve roots. Physician assistant to the vice president needed for softtissue retraction, suctioning for visualization and for protection of the neuralelements during this part of the procedure as well.Of note-a small spike of bone causing incidental durotomy was repaired primarilywith watertight closure using 5-0 Prolene in a iicyua-kt-djraf fashion.Valsalva 5 count revealed no CSF egressWound wascopiously irrigated. Wound was hemostatic. Deep drain inserted.Fascia closed using #1 Vicryl suture. Subcutaneous tissues injected 30 cc of0.5% marcaine with epinephrine. Skin closed using 2 0 Vicryl for subcu and 3-0Monocryl for skin with application Steri-Strips and sterile dressing.Patient rolled onto stretcher, extubated, moving all 4 extremities and broughtto recovery room stable condition. Physician assistant to the vice president needed to assist in thesafe transfer the patient from the prone position on the operating table/frameto the supine position on the patient's stretcher.Operative InformationSpecimen(s): @ORSPECMN@Grafts/Implants: * No implants in log *All tasks completed under the direction of the primary surgeonYesi Modi MD Name Value Range Interpretation Code Description Data Simran rce(s) Supporting Document(s) ID Date Data Source [id number] 01/30/2021 12:04:43 PM EDT [address] [address]Dbcqjwj Name: SEBASTIAN PENGB: 1955Sex: MOrdering Provider: YESI MODIAuthorizing Prov: YESI MODIReferrjuve Provider: Procedure Performed: / XR OR SPINE LUMBARExam Date: 01/30/2021 11:57MRN: [id number] Number: [id number] Class: InpatientAccount #: [id number] for Exam: Degenerative lumbar disc [M51.36]Spinal stenosis of lumbar region with neurogenic claudication [M48.062]Technique: Lateral view obtained.Comparison: NoneFindings: Localizing needles at the levels of L2-3 and L5-S1.IMPRESSION: Loc alizing needles at L2-3 and L5-S1.Report electronically signed by: HUEY TAYLOR On 01/30/2021 12:04 PMWorkstation ID: [id number] Name Value Range Interpretation Code Description Data Simran rce(s) Supporting Document(s) ID Date Data Source [id number] 01/30/2021 11:42:01 AM EDT [facility] NT INFORMATIONPatient MRN Name Date of Age Gend*PT [id number] Sebastian Fofana 1955 65 years M SDCXPT Location Admission Date/Time Visit ID Attending Provider --- --- --- --- EPI ID CSN Admitting Provider [id number] ---AirwayPatient location during procedure: ORUrgency: electiveDifficult airway: [...] to lips: 23 cmPlacement verified by: + [id number] view: grade IIa - partial view of glottis Name Value Range Interpretation Code Description Data Simran rce(s) Supporting Document(s) ID Date Data Source [id number] 01/30/2021 11:05:20 AM EDT [facility] NT INFORMATIONPatient MRN Name Date of Age Gend*PT [id number] Sebastian Fofana 1955 65 years M SDCXPT Location Admission Date/Time [facility]852 --- Yesi Modi MD([id number]) EPI ID CSN Admitting Provider [id number] Yesi Modi MD([id number])Pre- op note/discusson/H&P review:Long discussion today.Options were reviewedProcedure [...] rce(s) Supporting Document(s) ID Date Data Source [id number] 01/25/2021 02:13:16 PM EDT [facility] NT INFORMATIONPatient MRN Name Date of Age Gend*PT [id number] Sebastian Fofana 1955 65 years M OPPT Location Admission Date/Time Visit ID Attending Provider --- --- --- Yesi Modi MD([id number]) EPI ID CSN Admitting Provider [id number] Yesi Modi MD([id number])OUTPATIENT / OBSERVATIONAL SURGICAL OR INVASIVE PROCEDUREName: Sebastian [...] disease) Has seen Dr. Marr in the [facility] in the past. Has not [...] for pain MDD 8 tablets Historical Provider, MDpotassium chloride SA (K-DUR,KLOR-CON) 10 MEQ tablet Take 10 mEq by mouth dailyHistorical Provider, MDspironolactone (ALDACTONE) 25 MG tablet Take 25 mg by mouth daily HistoricalProvider, zolpidem (AMBIEN) 10 MG tablet Take 10 mg by mouth nightly as needed for sleepHistorical Provider, MDDaily Gabriel (THERAGRAN) per tablet Take 1 tablet by mouth daily 01/25/21Historical Provider, MDpantoprazole (PROTONIX) 40 MG tablet Take 40 mg by mouth daily 01/25/21Historical Provider, MDspironolactone (ALDACTONE) 25 MG tablet Take 25 mg by mouth daily 01/25/21Historical Provider, MDsucralfate (CARAFATE) 1 g tablet Take 1 [...] Age of Onset Dementia Mother Stroke Father Malantoine Hyperthermia Neg HxREVIEW OF SYSTEMS:Respiratory: Reports dyspnea [...] thyromegaly. No carotid bruits.MENTAL / NEUROLOGICAL STATUS: [id number]: Clear to auscultation. No wheezes, rhonchi or [...] lumbar region with neurogenic claudication.PLAN: Procedure: Lumbar 51912 sacral 1 laminectomy foraminotomies.Patient was previously scheduled to postpone for above surgery. He has sincebeen seen by cardiology for restratification. Will need office visit notes andany testing completed.01/25/2021 11:46 Bienvenido Wakefield document or parts of this document, were dictated using [employer] software. A reasonable attempt at proofreading has beenmade to minimize errors. Please call with any questions or corrections.* Name Value Range Interpretation Code Description Data Simran rce(s) Supporting Document(s) ID Date Data Source [id number] 01/25/2021 12:09:31 PM EDT [facility] PCName: Sebastian PengB: 4Provider: Maira Modi: 01/25/2021 Reason For Tonia Fofana is here [...] painPhysical therapy 2019Also saw pain management in [facility] and [place]--injections not helpfulAlso saw neurosurgery in [place], Dr. Akhtar The patient complains of pain [...] as reviewed the official corresponding reports:MRI lumbar [facility] 12/01/2019: L3-4 right synovial cyst with [...] different treatment conservative options(observation, medication(s), physical therapy, care worker, acupuncture, pain clinic, home exercise program, another [...] document was dictated and electronically signed using [employer] software. A reasonable attempt at proof reading has been made to minimize errors. Please call with any questions. Signatures Electronically signed by : Yesi Modi M.D.; Jan 25 2021 12:09PM EST (Author) Name Value Range Interpretation Code Description Data Simran rce(s) Supporting Document(s) ID Date Data Source [id number] 01/25/2021 07:52:06 PM EDT [facility] SPEC EXP DATE 1PATI ENT ABO/Rh A POSITIVEANTIBODY SCREEN NEGATIVETESTING SITE PERFORMED AT [address] [place] [id number] BANK COMMENT BLOOD TYPE CONFIRMED. Name Value Range Interpretation Code Description Data Simran rce(s) Supporting Document(s) TYPE AND SCREEN [facility] ID Date Data Source [id number] 01/25/2021 05:59:55 PM EDT [facility] Name Value Range Interpretation Code Description Data Simran rce(s) Supporting Document(s) SODIUM 131 mmol/L (136-145) L [facility] POTASSIUM 3.6 mmol/L (3.6-5.2) [facility] CHLORIDE 91 mmol/L (100-108) L [facility] CO2 33 mmol/L (22-31) H [facility] ANION GAP 7 mmol/L (7-16) [facility] UREA NITROGEN 39 mg/dL (7-24) H [facility] CREATININE 1.73 mg/dL (0.80-1.30) H [facility] BUN/CREAT RATIO 22.5 RATIO (10.0-20.0) H [facility] GLUCOSE 114 mg/dL (70-99) H [facility] CALCIUM 9.1 mg/dL (8.4-10.2) [facility] TOTAL PROTEIN 7.2 g/dL (6.4-8.2) [facility] ALBUMIN 3.7 g/dL (3.2-4.5) [facility] GLOBULIN 3.5 g/dL (2.7-4.3) [facility] ALB/GLOB RATIO 1.1 RATIO [facility] ALKALINE PHOSPHATASE 52 U/L (45-117) [facility] BILIRUBIN,TOTAL 0.5 mg/dL (0.0-1.0) [facility] PLEASE NOTE:Total bilirubin results may be falselyelevated in patients taking Eltrombopag. AST (SGOT) 35 U/L (11-39) [facility] ALT (SGPT) 17 U/L (12-78) [facility] GFR 40 ml/min/1.73m2 (>59) L [facility] GFR ( AMER) 48 ml/min/1.73m2 (>59) L [facility] GFR INTERPRETATION [facility] --NORMAL KIDNEY FUNCTION OR MILD DISEASE - GFR >OR= 60CHRONIC KIDNEY DISEASE - GFR 15 - 59RENAL FAILURE - GFR <15 Est. GFR calculation based on the MDRDstudy equation, which assumes a steadystate for creatinine. Est. GFR should notbe used for medication dosing. ID Date Data Source [id number] 01/25/2021 05:47:52 PM EDT [facility]ill[facility] JULIAN Name Value Range Interpretation Code Description Data Simran rce(s) Supporting Document(s) APTT 32.5 s (22.0-34.3) [facility] MARIA Y ID Date Data Source [id number] 01/25/2021 05:47:52 PM EDT [facility] IESHA Name Value Range Interpretation Code Description Data Simran rce(s) Supporting Document(s) PT 11.8 s (9.2-11.9) [facility] JULIAN INR 1.14 [facility] I[facility]HA SUGGESTED THERAPEUTIC RANGES USING INR F ORSTABILIZED ANTICOAGULATED PATIENTS:STANDARD DOSE THERAPY INR 2.0-3.0 DVT, PE, PREVENT DVT OR EMBOLISMHIGH DOSE THERAPY INR 2.5-3.5 PREVENT EMBOLISM FROM MECHANICAL HEART VALVE ID Date Data Source [id number] 01/25/2021 05:24:31 PM EDT [facility]ill[facility] JULIAN Name Value Range Interpretation Code Description Data Simran rce(s) Supporting Document(s) HEMOGLOBIN A1C @ 5.8 % (4.0-6.0) [facility] JULIAN Performed using Siemens Cottonwood immunoassa y.Care must be taken when interpreting RbS9grjskifp in patients with a hemoglobin variantor decreased erythrocyte lifespan. Values 5.7 - 6.4% suggest prediabetes.Values >=6.5% are diagnostic for diabetes.REFERENCE: DIABETES CARE 2018: 41(S13-S27). EST AVERAGE GLUCOSE 120 mg/dL [facility] ce [facility] IESHA ID Date Data Source [id number] 01/25/2021 05:06:17 PM EDT [facility] Name Value Range Interpretation Code Description Data Simran rce(s) Supporting Document(s) WBC 9.7 10*3/uL (4.1-11.0) [facility] C [place] RBC 4.26 10*6/uL (4.60-6.10) L [facility] HGB 14.0 g/dL (13.5-18.0) [facility] HCT 41.9 % (41.0-53.0) [facility] MCV 98.5 fL (80.0-95.0) H [facility] MCH 32.8 pg (27.0-32.0) H [facility] MCHC 33.3 g/dL (32.0-36.0) [facility] RDW 14.6 % (10.5-14.5) H [facility] PLT 186 10*3/uL (150-450) [facility] MPV 10.2 fL (7.1-10.7) [facility] MARIA[facility] ID Date Data Source [id number] 01/30/2021 12:00:13 PM EDT [facility] Name Value Range Interpretation Code Description Data Simran rce(s) Supporting Document(s) SARS-COV-2 ROBERT [facility] Not DetectedReference range: Not Detecte d This nucleic acid amplification test was developed and its performance characteristics determined by [employer]. Nucleic acid amplification tests include RT-PCR and [...] detected) result in this assay. Performed At: [facility] [address] [place], [place] [id number] Yamile Barreto PhD Ph:[phone] ID Date Data Source [id number] 01/23/2021 09:13:00 AM EDT [facility] Name Value Range Interpretation Code Description Data Simran rce(s) Supporting Document(s) SARS coronavirus 2 [facility] This lab was ordered by [facility] and reported by [facility]. 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 12/27/2020 - 1016 CLINICAL DIAGNOSIS Left laryngeal lesion 12/26/2020 - 1538 GROSS DIAGNOSIS Received in formalin labeled "left laryngeal biopsy" and consists of multiple fragments of tissue, 2 x 2 x 0.2 cm in aggregate. All in one. -OA 12/26/2020 - 1538 Signed MATHEW SHIELDS MD 12/27/2020 1018 ID Date Data Source [id number] 12/21/2020 12:00:00 PM EDT [facility] Name Value Range Interpretation Code Description Data Simran rce(s) Supporting Document(s) SARS-CoV-2 (COVID-19) RNA [Presence] in Respiratory specimen by ROBERT with probe detection Not Detected [facility] This lab was ordered by [facility] and reported by [employer]. ID Date Data Source [id number] 12/12/2020 07:47:00 AM EDT [facility] Name: SEBASTIAN FOFANA : 1955 Age/Sex: 65M Ordering Provider: Max Saab MD Med Rec #: [id number] Reg Status: DEP REF Room #: Date of Service: 12/06/20 Report Number: [id number] cc:Natanael Rosales MD; Max Saab MD Send Report To: NMSPECT No Charge [id number] SPECT/NMSPECT No Charge Reason for exam: ATRIAL FIBRILLATION BY ELECTROCARDIOGRAM, CHEST PAIN UNSPECIFIED TYPE FINDINGS: Please see dictated report dated 11/29/2020 @ [address] Khoa Gómez. Fluoroscopy time in seconds: CT Dose in mSv: Contrast Agent in ml: Method of Administration: Intraveneous REPORT SIGNATURE ON FILE Reported By: Khoa Gómez MD 12/12/20 0748 Dictation Date/Time: 11/29/201410 Transcribed Date/Time: 12/12/20746 Ditch Tender: AGNES Name Value Range Interpretation Code Description Data Simran rce(s) Supporting Document(s) ID Date Data Source [id number] 12/06/2020 11:37:00 AM EDT [facility] Name: SEBASTIAN FOFANA : 1955 A ge/Sex: 65M Ordering Provider: Max Saab MD Med Rec #: [id number] Reg Status:REG REF Room #: Date of Service: 12/06/20 Report Number: [id number] cc: Max Saab MD; Natanael Rosales MD Send Report To: Echocardiogram Complete Ordering Phys: MAMTA, Accession Number: [id number] Exam Date: 12/06/2020 11:54 Indications: AFIB CHEST [...] OV> Exam Date/Time: 12/06/20 1137 Order #: [id number] Dictation Date/Time: 12/06/20 1154 Transcribed Date/Time: Ditch Tender: Name Value Range Interpretation Code Description Data Simran rce(s) Supporting Document(s) ID Date Data Source [id number] 11/29/2020 12:54:00 PM EDT [facility] Name: SEBASTIAN FOFANA : 1955 Age/Sex: 65M Ordering Provider: Max Saab MD Med Rec #: [id number] Reg Status: DEP REF Room #: Date of Service: 11/29/20 Report Number: [id number] cc:Natanael Rosales MD; Max Saab MD Send [facility] Nas[facility] Spect Ex/Rest Mult Ht (in): 70 Wt (lb): 299 Tech/RN: Gunner Ureña Accession Number: [id number] Procedure: Myocardial Perfusion Study Indications: Persistent atrial fibrillation IMAGE PROTOCOL Rest/Stress 1 Day Radiopharm Dose(mCi) Duration(min) Img Date Img Time Rest: Tc-99m 35.1 20 12/06/2020 Sestamibi Stress: Tc-99m 36.7 12/06/2020 Sestamibi Administration Site: Intravenous SPECT RESULTS [...] 1636 Dictation Date/Time: 11/29/20 1411 Transcribed Date/Time: Ditch Tender: Name Value Range Interpretation Code Description Data Simran rce(s) Supporting Document(s) ID Date Data Source [id number] 11/29/2020 12:54:00 PM EDT [facility] Name: SEBASTIAN FOFANA : 1955 A ge/Sex: 65M Ordering Provider: Max Saab MD Med Rec #: [id number] Reg Status:REG REF Room #: Date of Service: 11/29/20 Report Number: [id number] cc: Max Saab MD; Natanael Rosales MD Send Report To: [facility] Accession Number: [id number] Ht (in): 70 Wt (lb): 299 Tech/RN: [...] HR: 131 % MPHR: 72 Double Product: 54760 BP Response: Stress Termination: On completion of [...] OV> Exam Date/Time: 11/29/20 1254 Order #: [id number] Dictation Date/Time: 11/29/20 1304 Transcribed Date/Time: Ditch Tender: Name Value Range Interpretation Code Description Data Simran rce(s) Supporting Document(s) ID Date Data Source [id number] 11/09/2020 03:29:28 PM EDT [facility] INFORMATIONPatient MRN Name Date of Age Gend*PT [id number] Sebastian Fofana 1955 65 years M OPPT Location Admission Date/Time Visit ID Attending Provider --- --- --- Yesi Modi MD([id number]) EPI ID CSN Admitting Provider [id number] Yesi Modi MD([id number])OUTPATIENT / OBSERVATIONAL SURGICAL OR INVASIVE PROCEDUREName: Sebastian [...] disease) Has seen Dr. Marr in the [facility] in the past. Has not [...] Take 25 mg by mouth daily HistoricalProvider, folic acid (FOLVITE) 1 MG tablet Take [...] thyromegaly. No carotid bruits.MENTAL / NEUROLOGICAL STATUS: [id number]: Clear to auscultation. No wheezes, rhonchi or [...] dental attention regarding his loose tooth.11/09/2020 3:26 PMKathleen Kelli, NPThis document or parts of this document, were dictated using [employer] speaking software. A reasonable attempt at proofreading has beenmade to minimize errors. Please call with any questions or corrections.* Name Value Range Interpretation Code Description Data Simran rce(s) Supporting Document(s) ID Date Data Source [id number] 11/09/2020 12:56:32 PM EDT [facility] Name Value Range Interpretation Code Description Data Simran rce(s) Supporting Document(s) EKG [facility] [id number]fpku2C7S5jPMeI4SnjLRgd5ozH4ZrH7PsEIKcTNQIYB8VbSVg jb2 [file] [id number]+KtizvAMmmYgiVZPCTXXsLlABORPIY7I= ID Date Data Source [id number] 11/10/2020 12:05:26 PM EDT [facility] Name Value Range Interpretation Code Description Data Simran rce(s) Supporting Document(s) SPECIMEN DESCRIPTION [facility] IESHA STAPH SCREEN RESULTS (ONEGSA) A [facility] IESHA COMMENT [facility] GENE TO DETECT STAPH AUREUS. (2) RT-P CR WAS PERFORMED FOR THE mecA AND [employer] GENES TO DETECT METHICILLIN RESISTANCE IN STAPH AUREUS. ID Date Data Source [id number] 11/09/2020 07:32:43 PM EDT [facility] SPEC EXP DATE 11/15/2020ATI ENT ABO/Rh A POSITIVEANTIBODY SCREEN NEGATIVETESTING SITE PERFORMED AT [address] [place] [address] Name Value Range Interpretation Code Description Data Simran rce(s) Supporting Document(s) TYPE AND SCREEN [facility] o f IESHA ID Date Data Source [id number] 11/09/2020 06:27:22 PM EDT [facility] Name Value Range Interpretation Code Description Data Simran rce(s) Supporting Document(s) APTT 26.8 s (22.0-34.3) [facility] MARIA Payan ID Date Data Source [id number] 11/09/2020 06:27:22 PM EDT [facility] Name Value Range Interpretation Code Description Data Simran rce(s) Supporting Document(s) PT 11.2 s (9.2-11.9) [facility] phillip JULIAN INR 1.08 [facility]illip JULIAN SUGGESTED THERAPEUTIC RANGES USING INR F ORSTABILIZED ANTICOAGULATED PATIENTS:STANDARD DOSE THERAPY INR 2.0-3.0 DVT, PE, PREVENT DVT OR EMBOLISMHIGH DOSE THERAPY INR 2.5-3.5 PREVENT EMBOLISM FROM MECHANICAL HEART VALVE ID Date Data Source [id number] 11/09/2020 06:10:49 PM EDT [facility] phillip JULIAN Name Value Range Interpretation Code Description Data Simran rce(s) Supporting Document(s) HEMOGLOBIN A1C @ 5.5 % (4.0-6.0) Lab María Elena Performed using Siemens Cottonwood immunoassa y.Care must be taken when interpreting HuV2soshvpck in patients with a hemoglobin variantor decreased erythrocyte lifespan. Values 5.7 - 6.4% suggest prediabetes.Values >=6.5% are diagnostic for diabetes.REFERENCE: DIABETES CARE 2018: 41(S13-S27). EST AVERAGE GLUCOSE 111 mg/dL [facility] ID Date Data Source [id number] 11/09/2020 06:09:18 PM EDT [facility] Name Value Range Interpretation Code Description Data Simran rce(s) Supporting Document(s) SODIUM 133 mmol/L (136-145) L [facility] POTASSIUM 3.6 mmol/L (3.6-5.2) [facility] CHLORIDE 91 mmol/L (100-108) L [facility] CO2 32 mmol/L (22-31) H [facility] ANION GAP 10 mmol/L (7-16) [facility] UREA NITROGEN 46 mg/dL (7-24) H [facility] CREATININE 1.83 mg/dL (0.80-1.30) H [facility] BUN/CREAT RATIO 25.1 RATIO (10.0-20.0) H [facility] GLUCOSE 122 mg/dL (70-99) H [facility] CALCIUM 10.0 mg/dL (8.4-10.2) [facility] TOTAL PROTEIN 7.9 g/dL (6.4-8.2) [facility] ALBUMIN 4.1 g/dL (3.2-4.5) [facility] GLOBULIN 3.8 g/dL (2.7-4.3) [facility] ALB/GLOB RATIO 1.1 RATIO [facility] ALKALINE PHOSPHATASE 66 U/L (45-117) [facility] BILIRUBIN,TOTAL 1.2 mg/dL (0.0-1.0) H [facility] PLEASE NOTE:Total bilirubin results may be falselyelevated in patients taking Eltrombopag. AST (SGOT) 30 U/L (11-39) [facility] ALT (SGPT) 20 U/L (12-78) [facility] GFR 37 ml/min/1.73m2 (>59) L [facility] GFR ( AMER) 45 ml/min/1.73m2 (>59) L [facility] GFR INTERPRETATION [facility] --NORMAL KIDNEY FUNCTION OR MILD DISEASE - GFR >OR= 60CHRONIC KIDNEY DISEASE - GFR 15 - 59RENAL FAILURE - GFR <15 Est. GFR calculation based on the MDRDstudy equation, which assumes a steadystate for creatinine. Est. GFR should notbe used for medication dosing. ID Date Data Source [id number] 11/09/2020 06:09:18 PM EDT [facility] Name Value Range Interpretation Code Description Data Simran rce(s) Supporting Document(s) BILIRUBIN,UNCONJ. 0.8 mg/dL (0.0-0.7) H [facility] ID Date Data Source [id number] 11/09/2020 06:09:18 PM EDT [facility] Name Value Range Interpretation Code Description Data Simran rce(s) Supporting Document(s) BILIRUBIN,CONJUGATED 0.4 mg/dL (0.0-0.3) H [facility] ID Date Data Source [id number] 11/09/2020 05:54:09 PM EDT [facility] Name Value Range Interpretation Code Description Data Simran rce(s) Supporting Document(s) WBC 12.7 10*3/uL (4.1-11.0) H [facility] RBC 4.84 10*6/uL (4.60-6.10) [facility] HGB 15.9 g/dL (13.5-18.0) [facility] HCT 47.1 % (41.0-53.0) [facility] MCV 97.3 fL (80.0-95.0) H [facility] MCH 32.9 pg (27.0-32.0) H [facility] MCHC 33.8 g/dL (32.0-36.0) Shannon Payan RDW 14.9 % (10.5-14.5) H Shannon Payan PLT 211 10*3/uL (150-450) Shannon Payan MPV 11.2 fL (7.1-10.7) H [facility] María Elena ID Date Data Source [id number] 11/09/2020 10:15:00 AM EDT [facility] Name Value Range Interpretation Code Description Data Simran rce(s) Supporting Document(s) SARS coronavirus 2 RNA Not Detected [facility] This lab was ordered by [facility] and reported by [employer]. ID Date Data Source [id number] 11/10/2020 03:09:05 PM EDT [facility] María Elena Name Value Range Interpretation Code Description Data Simran rce(s) Supporting Document(s) SARS-COV-2 ROBERT [facility] phillip JULIAN Not DetectedReference range: Not Detecte d This nucleic acid amplification test was developed and its performance characteristics determined by [employer]. Nucleic acid amplification tests include RT-PCR and [...] detected) result in this assay. Performed At: [facility] [place], [place] [id number] Quan Greer PhD Ph:[phone] ID Date Data Source [id number] 11/08/2020 04:14:00 PM EDT [facility] Name Value Range Interpretation Code Description Data Simran rce(s) Supporting Document(s) Sodium 135 mmol/L 136-145 Below low normal [facility] Potassium 3.5-5.1 Normal (applies to non-numeric resul ts) [facility] Chloride 94 mmol/L 98-107 Below low normal [facility] Carbon Dioxide CO2 21-32 Normal (applies to non-numer ic results) [facility] Anion Gap 5.0-16.0 Above high normal [facility] BUN 41 mg/dL 7-18 Above high normal [facility] Creatinine,Serum 0.8-1.5 Above high normal [facility] GFR 43 mL/min >60 Below low normal [facility] Glucose Level 115 mg/dL 60-99 Above high normal [facility] Reference range is only applicable when patient is fasting Note the following drug interference: Sulfasalazine Sulfapyridine Can see falsely depressed Can see falsely elevated result with up to 17% results with up to 11% decrease in measurement increase in measurement Recommend patients be collected for this test prior to administration of either drug. Calcium 8.5-10.1 Above high normal [facility] Bilirubin,Total 0.1-1.9 Normal (applies to non-numeric results) [facility] SGOT(AST) 38 U/L 15-37 Above high normal [facility] Note the following drug interference: Sulfasalazine Sulfapyridine Can see falsely depressed Can see falsely elevated result with up to 10% results with up to 10% decrease in measurement increase in measurement Recommend patients be collected for this test prior to administration of either drug. SGPT(ALT) 33 U/L 12-78 Normal (applies to non-numeric resul ts) [facility] Note the following drug interference: Sulfasalazine Sulfapyridine Can see falsely depressed Can see falsely elevated result with up to 29% results with up to 10% decrease in measurement increase in measurement Recommend patients be collected for this test prior to administration of either drug. Alkaline Phosphatase 68 U/L 38-126 Normal (applies to non-num angelia results) [facility] can increase Alkaline Phosp le vels up to 2 times the normal adult value. Normal values for children and adolescents are 2 to 3 times the normal adult value. Total Protein 6.0-8.2 Normal (applies to non-numeric re sults) [facility] Albumin Level 3.4-5.0 Normal (applies to non-numeric re sults) [facility] ID Date Data Source [id number] 11/08/2020 03:44:00 PM EDT [facility] Name Value Range Interpretation Code Description Data Simran rce(s) Supporting Document(s) White Blood Count 3.5-10.5 Above high normal [facility] Red Blood Count 4.30-5.70 Normal (applies to non-numeric results) [facility] Hemoglobin 13.5-17.5 Normal (applies to non-numeric resul ts) [facility] Hematocrit 38.8-50.0 Normal (applies to non-numeric resul ts) [facility] Mean Corpuscular Volume 81.2-95.1 Normal (applies to non- numeric results) [facility] Mean Corpuscular Hgb 25.6-32.2 Normal (applies to non-num angelia results) [facility] Mean Corpuscular Hgb Conc 32.0-36.0 Normal (applies to no n-numeric results) [facility] Red Cell Distribution Width 11.8-15.6 Normal (appli es to non-numeric results) [facility] Platelet Count 279 x10 3/uL 150-450 Normal (applies to non-numeric results) [facility] Mean Platelet Volume 9.4-12.4 Normal (applies to non-num angelia results) [facility] Neutrophils% (Auto) 31.0-71.0 Above high normal [facility] Lymphocytes% (Auto) 20.0-55.0 Below low normal [facility] Monocytes% (Auto) 4.0-12.0 Normal (applies to non-numeri c results) [facility] Eosinophils% (Auto) 1.0-8.0 Normal (applies to non-nume max results) [facility] Basophils% (Auto) 0.0-2.0 Normal (applies to non-numeri c results) [facility] Immature Granulocytes% (Auto) 0.0-2.0 Normal (trey lies to non-numeric results) [facility] Neutrophils# (Auto) 1.50-6.20 Above high normal [facility] Lymphocytes# (Auto) 1.20-4.00 Normal (applies to non-nume max results) [facility] Monocytes# (Auto) 0.00-0.90 Normal (applies to non-numeri c results) [facility] Eosinophils# (Auto) 0.00-0.50 Normal (applies to non-nume max results) [facility] Basophils# (Auto) 0.00-0.20 Normal (applies to non-numeri c results) [facility] Immature Granulocytes# (Auto) 0.00-7.00 No rmal (applies to non-numeric results) [facility] ID Date Data Source [id number] 10/27/2020 11:54:04 AM EDT [facility] PCName: Sebastian BetancourtCatrachitaB: 4Provider: Maira Modi: 10/27/2020 Reason For Tonia [...] ther apy 2019Also saw pain management in [facility] and [place]--injections not helpfulAlso saw neurosurgery in [place], Dr. Akhtar The patient complains of pain [...] as reviewed the official corresponding reports:MRI lumbar [facility] 12/01/2019: L3-4 right synovial cyst with [...] different treatment conservative options(observation, medication(s), physical therapy, care worker, acupuncture, pain clinic, home exercise program, another [...] document was dictated and electronically signed using [employer] software. A reasonable attempt at proof reading has been made to minimize errors. Please call with any questions. Signatures Electronically signed by : Yesi Modi M.D.; Oct 27 2020 11:50AM EST (Author) Electronically signed by : Yesi Modi M.D.; Oct 27 2020 11:54AM EST (Author) Name Value Range Interpretation Code Description Data Simran rce(s) Supporting Document(s) ID Date Data Source [id number] 09/29/2020 05:21:27 PM EDT [facility] PCName: Sebastian PengB: 4Provider: Maira [...] painPhysical therapy 2019Also saw pain management in [facility] and [place]--injections not helpfulAlso saw neurosurgery in [place], Dr. Akhtar The patient complains of pain [...] or weakness. Results/Data XRays previously taken at [facility] were reviewed today. Site: Lumbar Spine Views: 2 Views, AP/Lateral Standing Findings:. degenerative disc disease of a moderate degree. Results/Data OtherBelow diagnostic testing were independently reviewed as well as reviewed the official corresponding reports:MRI lumbar [facility] 12/01/2019: L3-4 right synovial cyst with severe central stenosis; L4-5 severe stenosis; L5-S1 foraminal narrowingMRI lumbar [facility] 09/29/2020: Comparison 12/01/2019-no significant change. L3-4 severe [...] different treatment conservative options(observation, medication(s), physical therapy, care worker, acupuncture, pain clinic, home exercise program, another [...] document was dictated and electronically signed using [employer] software. A reasonable attempt at proof reading has been made to minimize errors. Please call with any questions. Signatures Electronically signed by : Yesi Modi M.D.; Sep 29 2020 5:21PM EST (Author) Name Value Range Interpretation Code Description Data Simran rce(s) Supporting Document(s) ID Date Data Source [id number] 09/29/2020 02:59:00 PM EDT [facility] PATIENT MR#: [id number] NAME: SEBASTIAN COYNE RDATE OF : 4REFERRING [...] rce(s) Supporting Document(s) ID Date Data Source [id number] 09/23/2020 12:14:00 PM EDT [facility] Name Value Range Interpretation Code Description Data Simran rce(s) Supporting Document(s) SARS coronavirus 2 RNA [Presence] in Res piratory specimen by ROBERT with probe detection NEGATIVE [facility] This lab was ordered by [facility] a nd reported by [facility]. ID Date Data Source [id number] 09/15/2020 09:14:37 PM EST [facility] PCName: Sebastian PengB: 4Provider: Yesi ModiKANWAL: 09/15/2020 Reason For Tonia Fofana is here today for Lumbar spine. Sebastian has not had the Covid vaccine. Sebastian Fofana is a new patient. Images imported from [employer]. Patient reports pain in Lumbar spine radiating [...] painPhysical therapy 2019Also saw pain management in [place] and [place]--injections not helpfulAlso saw neurosurgery in [place], Dr. Akhtar The patient complains of pain [...] as reviewed the official corresponding reports:MRI lumbar [facility] 12/01/2019: L3-4 right synovial cyst with [...] different treatment conservative options(observation, medication(s), physical therapy, care worker, acupuncture, pain clinic, home exercise program, another [...] document was dictated and electronically signed using [employer] software. A reasonable attempt at proof reading has been made to minimize errors. Please call with any questions. 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/ZJ5WBMHSCmqWGBuHDGU09FsBOTfMSq OjHEGiEsGN+dXg9FNGOOxSUbKCeWJczJO3LWzz6P1/WI/qhbqE2CrirKtOEboDdOS+lN5K1hDoy4shQ3 PyZTnpA3Y41nDloebT6zmlE8u6tlBAwVsJ5QQnW98OSnDQsT+D2/i63Hl0DgMVRKwOZejHQBMznFGas2 P7r2lu34m90SWpU6DHAosv3x7a4U0fbE7O10WfoH0O WMrwmiR9xBlS5JOKh55Ekn1WxCxjHb8dBBjd302K7sVxCDLf6EjUMU+qPEyWHpxhGIZhGMYK+QfBURo1 VPhgwyEvbUAlNV8POyIcDS2zql9SZmSeHRWpNblMNfq7VVajAB5XsXQbZ8nXPclnA2SfI1QapWneKN3F fHLdQU7FBM5kV1hqXgOyLju9k1DuawWtbZStyrIszH T2X1KkoP9oJ3CoT7KgPSF3fUMmQ2AmmT6NjQU4wNTgZKWvBXVgD0k1IIG6QU8ALC5ooPhvYfZ9Wg9ZcG r4UGWbPa4MrCK3ZQFzL60hJM5YBd5+VEomuGKvEA7NEilP4K73MBRXSm4hQlawQSiigPZPCGqizlJJFr qCNLATALDADBKDAmSUSxtERSVUJQCQ6BQP7EfxsIJL [file] 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 producer/7yP2slDN7g6XMVlixyh78Bi3Up9P+44LeSmnSZk65lOOThmzZ+efgwc8pVMj9mlpzsJEEou06Pu98 Ml6DgTdRre9xX9ehydzksTdyb8fqxt5kOAXPE3u7iYOyo8Cxuo+52icLAugjRkGzDnGnu84br7iqYW4E W/8bDxUn56/uD+HMUhxCktWl0taABou0TI+WlP0jcG la7t4M9Jb/zhsuUaSUaQX0m1J7je5Ot4OSePvGrElCrqxjEJplRx90wLVhCNbSo/ASeEEBxazM9vlJgN YRoUYIA6U1w0zR3TbiN+0ZsS1zKtsZ+5acsa8nUm8lGnQUCp0/OknjldMrPDeOKtCa2k2Z5+PW9oug0w liOJwVz+TvF+glOmACR3MjhsPgCqCq//V/gvOGSyyw 6YGF2pq3GrBCQcLEzeyiWwSywPNjF7TZTnm1CqMHj4PZ1ZLHUgNTtoIN4YK0SgUHH1R8Y9OeM2qHLrOA 4xT7JtXrNjCR6nuJlaHS3AfHWdQUJaD44seQ6nZV45NGyxY19yq1NKhQEpQT2VXJZbP8XCB4WrO2ckvC izBIf1L3akvBpgkELdYkIrIXXwP9VqDVJ8TfTpXlbq oHYfKBhuMezuqFMTFCRtKEBbOBwuQZ2RDBFvezFmXeAmXSSlQNj+Xj5Fq8FnMQSpLGrXvo3ryWyxXUPO BQ8e3D/r6LOXCjjtJApl7pXDqMJQqWBEtULQeOvHStHDnkBskle0drY9mGVA/e7KOA26oNsh0dBMgG8k DIPJZAZXIAMXFVOTZEOQ5t9lqjaXRTaWJSXCKFTYrA hDVqaCxbU08uQj9h+n/+W9vHggk5+I7PREk9HJsRhmt8h2W3qNgWIaI/GTeKPNUxTcMhV2og1e4xYuT9 k6X2IkpkfLasiNZdsoTCyQQYK2ve6IgKuWrizg2d0dKyp94ahs946e5gBpWX20lwIiryP5r/Wdy/e7tk BsBJHNkhJESlGJZI63IBKBFYXTPNBBCVPOUGUDOUXF [file] AgICAgICAgICAgICAgICAgICAgICAgICAgICAgICAgICAgICAgICAgICAgICAgICAgICAgICAgICAgIC CaPYFbDZHwCNLiPCPaVGApEGNoNN8CCLJyCBNfCPGv ICAgICAgICAgICAgICAgICAgICAgICAgICAgICAgICAgICAgICAgICAgICAgICAgICAgICAgICAgICAg IQSaTRPfNLDgBHSbXLCyDSIaOSWmKLHtMTBpZVOfCL3PNKDsXVUqMPLzMTSkNSUzVDJnKKLrWSZjXMLq ICAgICAgICAgICAgICAgICAgICAgICAgICAgICAgIC ZhJSGuFKAgPPRgYOQzXUDqCZAwOAEzUILhXMYaCFPaRWNnDYIiTNZbFG0PYOWiOOEpVVIbYUUrIWPfCX AgICAgICAgICAgICAgICAgICAgICAgICAgICAgICAgICAgICAgICAgICAgICAgICAgICAgICAgICAgIC YxWIUsFGGvDDOeIMNsEAJzWMMcNGYnKD0PPIJwDGRb ICAgICAgICAgICAgICAgICAgICAgICAgICAgICAgICAgICAgICAgICAgICAgICAgICAgICAgICAgICAg OGWzNQPlPTUuNXQtAIPsVPJbTGXxLCUwJBLlKSZyTDUbBM9YJWNcSUFeHGSkDMKoKGUgZPWgWMItDUKl ICAgICAgICAgICAgICAgICAgICAgICAgICAgICAgIC LgTVJlABAuOSBlODYmMQExAMJjPTJpRXDcVNWcPLYqDUMqQZPuORNiTBOhVC4NXPDuEJMpOYAkKUTlCM AgICAgICAgICAgICAgICAgICAgICAgICAgICAgICAgICAgICAgICAgICAgICAgICAgICAgICAgICAgIC RnBMKtQMMtCDCpHVLcHYYnOVSkKFLmLKVpXX9VKUPh ICAgICAgICAgICAgICAgICAgICAgICAgICAgICAgICAgICAgICAgICAgICAgICAgICAgICAgICAgICAg LIJpYQEcWHNhFTStRGZvVAEzTAFmJSFzPEKoCMMgHGUyTQCfPF4OXAFrTJYyTSGgVIOoQUWfAPIiNUYy ICAgICAgICAgICAgICAgICAgICAgICAgICAgICAgIC NaIKCbRRRmGFMiHFMjXGKjIIVdTAVpACJkTIJwIHBfVBWmIXUiETTiJGNeGQKwZJ6ZWSMgTFRmWEGsWA AgICAgICAgICAgICAgICAgICAgICAgICAgICAgICAgICAgICAgICAgICAgICAgICAgICAgICAgICAgIC IkNGIzURRmDLHiEHGbFEXqKCBoPAVtYOHbVSFpZU8W ZX69kUSky1Y2TFFmOP9menc/Di4AHJdjddUmpIFkNN7BTaNgQS0gjv0KHjPhLF9ske4LTHtQMlVkU4U4 yBRwMHQmYJKPGcGxC33pNYyzGb41QScwXAKcCtIcFZm2Vp5FRcDzH4yuZNFmBzV2HNUsHiR1TUGhUyZc HNmuSJ7Ut7FgyDAcNEg+Kt6JDP4lq7QqSNd3NYJzWL 7gnt7YSBdXAmWnL4R0yLBtV3J3ZNwdAu7NIZBwPWEfQixvVTHWYCbsKL6OZT1wekA3PR2TfZVuJADvBF VhiYHpILu1X36scHIvGIqbWL8AVGL+Sapphire+Az2WLWRgRTJwYTAtXuGbIDYRXnMkE98tmFZeCTToCHZ2RZ EsYe6ANKEbM0OjsdJvaSuukfJsWLIiIGNSIF8DRGyf vjGjjVPshWhbEF87jDpxNI9ZYq6KMmWnVR4qiu8ThRKhKj1FEXS7JA6ULCTbYVQiCYXpNKM6WTVnWvIg OZhtLRUpFTZlNOK0GCNbLKIlVG7OFoSwAWCvPlG2PZGbQFLgPFUsvq4BDQTrJMN6GJjoChCsDLAvDUEa DZaqHPLlSRLlLQbpYYAnYNQeUM5RIwOvWZZtAVNfQY FqITGoOYApht7SUCRtNROdOzP3SFEnRJWrVVWrRDpdLSVdEEW9MvZ0PXJsTEIjNO6RNwFdGWEpKMK7OE EeZRJqMFPdhi0BGNMdGOMfTww9YcFtUMIaEOZtIPiiBZKxNTN2CMJ9QIAkNQCbHA5WPoFoNYMiOCakSQ sgECBsJUScee8GZVKrUMWcKVZcWJWwZAVuNZUsJEuh ZABjHBK7SUNlEZKrRKZnUG4VNzPwVZWhTNd7ITruUVDeHLJpyu9EHFSpOBFgHdM2JSJhZNRkZHNeFKjh HNPhIXAoKvysOERtBDHcKW2UJlSwJAZeYIU5XIIcJSFsDZLwtb8LHXXaPJNlOUMwOtGlFGMsGTYpUZeq SHSdYMV7XwnmIBXpDKMdQL0YDsTrOOBnYUVxXUIgHX RdHLCmfc7IWBKdXHJdGMP3LuDfIJCoGNWaHSamZCTnOUJ1EeaeDMIaZVMhUC7BSsIqFHZgYnBkFZNtLM DfKWAczs3PTXMwIZNrJVF0GtWqPBLzXMNzCNghDXNhYSV9DyQ0YWPcUTKyUB6RTaDvPNLmZksyVVWqVK WeAQAdhf8ZHXEnTXRmBWh9ArMbQOQxMOIeESkeFEPl OABcFYwxKSYbKXNlMX5TPeBfFWIjPgM6AdZiWZThPVHexb4OLRZdSWHlGAA6GtWqRAVwRLMuZVdmOBJw PXBuMrQ5LYJmDVOwMB1TOkVgKYMjOSD6OPWlLTHaEQOung0SRNShRWA9YYZ1FXOgSRByPWHeJPqwUKOe WAIiXSR3QYGjTJJbKR9FZsZsJUEsKRZ5IUggKMKaWR Jeir0MGPMrSSB3DVA5FrEoLDClYERdJAltERPtZAXdNWLbYKOnOBRhKE1IKnOqXKHiPwW1HiswDTQaSP Fyoa5ABNJsKDE3XyK7ZnNwLZQdEPUpJSxjWBQrULB7UFB9PDTeZPZzEC7HRjLuNBxoSXRXKsm6UHjnN0 r8XJP5LL0LK1Lkj4KnKAPjUGLWTXvmZZ5mpnMeWLHb Fx5GS6jMGvtkLNGlYbMoArYrMpy6IoW7TYCrKxM0FQI4GdBjFSvdSP1tOHStZROqQ9FxCCW1WTZ1Pmyf BSLlKGfyRJEmZvW8TDHsAbDjHS7QPx3XBqO4RIB8xBQfSu2GWxstVXYDStQtIF3ETXo= ID Date Data Source [id number] 06/12/2020 03:04:00 PM EST [facility] Name Value Range Interpretation Code Description Data Simran rce(s) Supporting Document(s) SARS coronavirus 2 RNA [Presence] in Res piratory specimen by ROBERT with probe detection [facility] This lab was ordered by [facility] a nd reported by [facility]. Procedure Social History Code Duration Value Status Description Data Source(s ) Alcohol intake 01/31/2021 12:00:00 AM EDT Current drinker of al cohol (finding) completed Current drinker of alcohol (finding) [facility] Alcohol intake 01/25/2021 12:00:00 AM EDT Current drinker of al cohol (finding) completed Current drinker of alcohol (finding) [facility] Tobacco use and exposure 11/09/2020 12:00:00 AM EDT Never used co mpleted Never used [facility] Cigarette pack-years 11/09/2020 12:00:00 AM EDT UNK completed [facility] Cigarettes smoked current (pack per day) - Reported 11/10/19 12:00:00 AM EDT UNK completed [facility] Smoking 11/09/2020 12:00:00 AM EDT Current every day smoker co mpleted Current every day smoker [facility] Alcohol intake 11/09/2020 12:00:00 AM EDT Current drinker of al cohol (finding) completed Current drinker of alcohol (finding) [facility] Vital Signs ID Date Data Source UNK Name Value Range Interpretation Code Description Data Source(s) Body temperature 96.8 [degF] 96.8 [degF] [facility] ([facility], ) Body mass index (BMI) [Ratio] 45.7 kg/m2 45.7 k g/m2 [facility] ([facility], ) Diastolic blood pressure 80 mm[Hg] 80 mm[Hg] [facility] ([facility]) Body height 68.5 [in_i] 68.5 [in_i] [facility] ([facility]) 5'8.50" Body surface area Derived from formula 2.46 m2 2.46 m2 [facility] ([facility]) Body weight 138.348 kg 138.348 kg [facility] ([facility]) Systolic blood pressure 110 mm[Hg] 110 mm[Hg] M [facility] ([facility]) Heart rate 71 /min 71 /min [facility] ([facility]) Oxygen saturation in Arterial blood by Pulse oximetry 92 % 92 % [facility] ([facility]) [place] body weight 154 [lb_av] 154 [lb_av] [facility] ([facility], ) Body weight 305.00 [lb_av] 305.00 [lb_av] [facility] ([facility]) Systolic blood pressure 110 mm[Hg] 110 mm[Hg] [facility] Diastolic blood pressure 83 mm[Hg] 83 mm[Hg] [facility] Heart rate 103 /min 103 /min [facility] Body temperature 37.22 Angie 37.22 Angie [facility] Oxygen saturation in Arterial blood by Pulse oximetry 95 % 95 % [facility] Respiratory rate 16 /min 16 /min [facility] Body height 172.7 cm 172.7 cm [facility] Body weight 136.986 kg 136.986 kg [facility] Body mass index (BMI) [Ratio] 45.93 kg/m2 45.93 kg/m2 [facility] Body mass index (BMI) [Ratio] 45.92 kg/m2 45.92 kg/m2 [facility] Systolic blood pressure 121 mm[Hg] 121 mm[Hg] [facility] Diastolic blood pressure 56 mm[Hg] 56 mm[Hg] [facility] Heart rate 59 /min 59 /min [facility] Body height 172.7 cm 172.7 cm [facility] Body weight 136.986 kg 136.986 kg [facility] Oxygen saturation in Arterial blood by Pulse oximetry 93 % 93 % [facility] Heart rate 59 /min 59 /min [facility] ([facility], ) Systolic blood pressure 114 mm[Hg] 114 mm[Hg] M [facility] ([facility]) [place] body weight 154 [lb_av] 154 [lb_av] [facility] T ([facility]) Body height 68.5 [in_i] 68.5 [in_i] [facility] ([facility]) 5'8.50" Diastolic blood pressure 80 mm[Hg] 80 mm[Hg] [facility] ([facility]) Oxygen saturation in Arterial blood by Pulse oximetry 95 % 95 % [facility] ([facility]) Body weight 304.00 [lb_av] 304.00 [lb_av] [facility] ([facility]) Body mass index (BMI) [Ratio] 45.5 kg/m2 45.5 k g/m2 [facility] ([facility]) Body weight 137.894 kg 137.894 kg [facility] ([facility]) Body surface area Derived from formula 2.46 m2 2.46 m2 [facility] ([facility]) Oxygen saturation in Arterial blood by Pulse oximetry 95 % 95 % [facility] ([facility]) Body height 68.5 [in_i] 68.5 [in_i] [facility] ([facility]) 5'8.50" Body weight 304.00 [lb_av] 304.00 [lb_av] [facility] ([facility]) Body mass index (BMI) [Ratio] 45.5 kg/m2 45.5 k g/m2 [facility] ([facility]) [place] body weight 154 [lb_av] 154 [lb_av] [facility] ([facility]) Body weight 137.894 kg 137.894 kg [facility] ([facility]) Body surface area Derived from formula 2.46 m2 2.46 m2 [facility] ([facility]) Systolic blood pressure 110 mm[Hg] 110 mm[Hg] M [facility] ([facility]) Diastolic blood pressure 82 mm[Hg] 82 mm[Hg] [facility] ([facility]) Heart rate 86 /min 86 /min [facility] ([facility]) Oxygen saturation in Arterial blood by Pulse oximetry 93 % 93 % [facility] ([facility]) Body height 68.5 [in_i] 68.5 [in_i] [facility] ([facility]) 5'8.50" Body weight 290.00 [lb_av] 290.00 [lb_av] [facility] T ([facility]) Body mass index (BMI) [Ratio] 43.4 kg/m2 43.4 k g/m2 [facility] ([facility]) [place] body weight 154 [lb_av] 154 [lb_av] [facility] ([facility]) Body weight 131.544 kg 131.544 kg [facility] ([facility]) Body surface area Derived from formula 2.41 m2 2.41 m2 [facility] ([facility]) Body mass index (BMI) [Ratio] 44.84 kg/m2 44.84 kg/m2 [facility] Systolic blood pressure 130 mm[Hg] 130 mm[Hg] [facility] Diastolic blood pressure 88 mm[Hg] 88 mm[Hg] [facility] Oxygen saturation in Arterial blood by Pulse oximetry 92 % 92 % [facility] Heart rate 75 /min 75 /min [facility] Body height 172.7 cm 172.7 cm [facility] Body weight 133.766 kg 133.766 kg [facility] Diastolic blood pressure 95 mm[Hg] 95 mm[Hg] [facility] ([facility]) Body height 72 [in_i] 72 [in_i] [facility] ([facility]) Body mass index (BMI) [Ratio] 40.6 kg/m2 40.6 k g/m2 [facility] ([facility]) Systolic blood pressure 137 mm[Hg] 137 mm[Hg] A THENA ([facility]) Body weight 299.5 [lb_av] 299.5 [lb_av] [facility] ([facility]) Body height 72 [in_i] 72 [in_i] [facility] ([facility]) 6'0" Body weight 190.00 [lb_av] 190.00 [lb_av] [facility] T ([facility]) Body mass index (BMI) [Ratio] 25.8 kg/m2 25.8 k g/m2 [facility] ([facility]) ID Date Data Source [id number] 05/05/2021 08:47:00 AM EDT [facility] Name Value Range Interpretation Code Description Data Source(s) Weight (Calculated Kilograms) 127.14 127.14 [facility] Height (Calculated Centimeters) 180.34 180. 34 [facility] Body Mass Index (BMI) 39.1 39.1 [facility] ID Date Data Source [id number] 05/05/2021 11:38:00 AM EDT [facility] Name Value Range Interpretation Code Description Data Source(s) Weight Measurement Method 1 1 [facility] Weight (Calculated Kilograms) 137.98 137.98 [facility] 4867.2 4867[facility]2 [facility] 7 7 [facility] 97.8 97[facility] [facility] Res[facility] Effort 1 1 [facility] Respiratory Rate 18 18 [facility] Pulse Assessment Method 4 4 [facility] Pulse Rate 78 78 [facility] pital Height (Calculated Centimeters) 182.88 182. 88 [facility] Height 72 72 [facility] pital Blood Pressure 131/84 131/84 [facility] Body Mass Index (BMI) 41.2 41.2 [facility] Weight Measurement Method 1 1 [facility] Weight (Calculated Kilograms) 137.98 137.98 [facility] Weight 4867.2 4867.2 [facility] pital Temperature Source 7 7 [facility] Temperature 97.6 97.6 [facility] spital Respiratory Effort 1 1 [facility] Respiratory Rate 18 18 [facility] Pulse Assessment Method 4 4 [facility] Pulse Rate 74 74 [facility] pital Height (Calculated Centimeters) 182.88 182. 88 [facility] Height 72 72 [facility] pital Blood Pressure 110/58 110/58 [facility] Body Mass Index (BMI) 41.2 41.2 [facility] Weight Measurement Method 1 1 [facility] Weight (Calculated Kilograms) 137.98 137.98 [facility] Weight 4867.2 4867.2 [facility] pital Temperature Source 7 7 [facility] Temperature 97.2 97.[address] [facility] Respiratory Effort 1 1 [facility] Respiratory Rate 16 16 [facility] Pulse Assessment Method 4 4 [facility] Pulse Rate 83 83 [facility] pital Height (Calculated Centimeters) 182.88 182. 88 [facility] Height 72 72 [facility] 130/68 130/68 [facility] Body Mass Index (BMI) 41.2 41.2 [facility] Weight Measurement Method 1 1 [facility] Weight (Calculated Kilograms) 137.98 137.98 [facility] Weight 4867.2 4867.2 [facility] pital Temperature Source 7 7 [facility] Temperature 97.2 97.2 [place] [facility] Respiratory Effort 1 1 [facility] Respiratory Rate 16 16 [facility] Pulse Assessment Method 4 4 [facility] Pulse Rate 83 83 [facility] pital Height (Calculated Centimeters) 182.88 182. 88 [facility] Height 72 72 [facility] pital Blood Pressure 130/68 130/68 [facility] Body Mass Index (BMI) 41.2 41.2 [facility] Weight Measurement Method 8 8 [facility] Weight 4720 4720 [facility] pital Temperature Source 7 7 [facility] Temperature 97.1 97.1 [place] [facility] Respiratory Effort 1 1 [facility] Respiratory Rate 20 20 [facility] Pulse Assessment Method 4 4 [facility] Pulse Rate 77 77 [facility] pital Height 72 72 [facility] pital Blood Pressure 114/95 114/95 [facility] Weight Measurement Method 8 8 [facility] Weight 4720 4720 [facility] pital Temperature Source 7 7 [facility] Temperature 97.1 97.1 [place] [facility] Respiratory Effort 1 1 [facility] Respiratory Rate 20 20 [facility] Pulse Assessment Method 4 4 [facility] Pulse Rate 77 77 [facility]ital Height 72 72 [facility] 114/95 114/95 [facility] Weight Measurement Method 8 8 [facility] Weight 4720 4720 [facility] pital Temperature Source 7 7 [facility] Temperature 97.1 97.1 [place] [facility] Respiratory Effort 1 1 [facility] Respiratory Rate 22 22 [facility] Pulse Assessment Method 4 4 [facility] Pulse Rate 50 50 [facility] pital Height 72 72 [facility] pital Blood Pressure 120/88 120/88 [facility] ID Date Data Source [id number] 04/11/2021 09:48:00 AM EDT [place] [facility] Name Value Range Interpretation Code Description Data Source(s) Weight Measurement Method 8 8 [facility] Weight 4640 4640 [facility] pital Temperature Source 1 1 [facility] Temperature 98 98 [place] [facility] Respiratory Effort 1 1 [facility] Respiratory Rate 19 19 [facility] Pulse Assessment Method 4 4 [facility] Pulse Rate 95 95 [facility] pital Height 72 72 [facility] pital Blood Pressure 169/85 169/85 [facility] Weight Measurement Method 8 8 [facility] Weight 4640 4640 [facility] pital Temperature Source 7 7 [facility] Temperature 98.3 98.3 [facility] spital Respiratory Effort 1 1 [facility] Respiratory Rate 20 20 [facility] Pulse Assessment Method 4 4 [facility] Pulse Rate 105 105 [facility] pital Height 72 72 [facility] pital Blood Pressure 126/69 126/69 [facility] ID Date Data Source [id number] 03/09/2021 10:58:00 AM EDT [facility] Name Value Range Interpretation Code Description Data Source(s) Weight (Calculated Kilograms) 127.14 127.14 [facility] Height (Calculated Centimeters) 180.34 180. 34 [facility] Body Mass Index (BMI) 39.1 39.1 [facility] ID Date Data Source [id number] 04/11/2021 09:39:00 AM EDT [facility] Name Value Range Interpretation Code Description Data Source(s) Weight 4800 4800 [facility] pital Temperature Source 7 7 [facility] Temperature 98 98 [place] [facility] Respiratory Effort 1 1 [facility] Respiratory Rate 18 18 [facility] Pulse Assessment Method 4 4 [facility] Pulse Rate 85 85 [facility] pital Blood Pressure 140/111 140/111 [facility] Weight 4800 4800 [facility] pital Temperature Source 7 7 [facility] Temperature 98 98 [place] [facility] Respiratory Effort 1 1 [facility] Respiratory Rate 18 18 [facility] Pulse Assessment Method 4 4 [facility] Pulse Rate 112 112 [facility] pital Blood Pressure 133/89 133/89 [facility] Weight 4800 4800 [facility] pital Temperature Source 7 7 [facility] Temperature 98 98 [facility] spital Respiratory Effort 1 1 [facility] Respiratory Rate 18 18 [facility] Pulse Assessment Method 4 4 [facility] Pulse Rate 112 112 [facility] pital ID Date Data Source [id number] 01/31/2021 08:26:00 AM [facility] Name Value Range Interpretation Code Description Data Source(s) Weight (Calculated Kilograms) 127.14 127.14 [facility] Height (Calculated Centimeters) 180.34 180. 34 [facility] Body Mass Index (BMI) 39.1 39.1 [facility] ID Date Data Source [id number] 12/15/2020 12:35:00 AM [facility] Name Value Range Interpretation Code Description Data Source(s) Weight (Calculated Kilograms) 127.14 127.14 [facility] Height (Calculated Centimeters) 180.34 180. 34 [facility] Body Mass Index (BMI) 39.1 39.1 [facility] ID Date Data Source [id number] 02/20/2021 07:24:00 AM [facility] Name Value Range Interpretation Code Description Data Source(s) Weight (Calculated Kilograms) 127.14 127.14 [facility] Height (Calculated Centimeters) 180.34 180. 34 [facility] Body Mass Index (BMI) 39.1 39.1 [facility] ID Date Data Source [id number] 12/22/2020 09:21:00 AM [facility] Name Value Range Interpretation Code Description Data Source(s) Weight (Calculated Kilograms) 127.14 127.14 [facility] Height (Calculated Centimeters) 180.34 180. 34 [facility] Body Mass Index (BMI) 39.1 39.1 [facility] ID Date Data Source [id number] 12/16/2020 08:16:00 AM EDT [facility] Name Value Range Interpretation Code Description Data Source(s) Weight (Calculated Kilograms) 127.14 127.14 [facility] Weight 4784 4784 [facility] Height (Calculated Centimeters) 180.34 180. 34 [facility] Height 70 70 [facility] Body Mass Index (BMI) 39.1 39.1 [facility] Weight (Calculated Kilograms) 127.14 127.14 [facility] Weight 4784 4784 [facility] Height (Calculated Centimeters) 180.34 180. 34 [facility] Height 70 70 [facility] Body Mass Index (BMI) 39.1 39.1 [facility] ID Date Data Source [id number] 11/29/2020 09:47:00 AM [facility] Name Value Range Interpretation Code Description Data Source(s) Weight (Calculated Kilograms) 127.14 127.14 [facility] Height (Calculated Centimeters) 180.34 180. 34 [facility] Body Mass Index (BMI) 39.1 39.1 [facility] ID Date Data Source [id number] 11/18/2020 07:36:00 AM [facility] Name Value Range Interpretation Code Description Data Source(s) Weight (Calculated Kilograms) 127.14 127.14 [facility] Height (Calculated Centimeters) 180.34 180. 34 [facility] Body Mass Index (BMI) 39.1 39.1 [facility] ID Date Data Source [id number] 07/22/2020 12:33:00 AM [facility] Name Value Range Interpretation Code Description Data Source(s) Weight (Calculated Kilograms) 127.14 127.14 [facility] Height (Calculated Centimeters) 180.34 180. 34 [facility] Body Mass Index (BMI) 39.1 39.1 [facility] ID Date Data Source [id number] 05/27/2020 08:06:00 AM [facility] Name Value Range Interpretation Code Description Data Source(s) Weight (Calculated Kilograms) 127.14 127.14 [facility] Height (Calculated Centimeters) 180.34 180. 34 [facility] Body Mass Index (BMI) 39.1 39.1 [facility] Weight (Calculated Kilograms) 127.14 127.14 [facility] Height (Calculated Centimeters) 180.34 180. 34 [facility] Body Mass Index (BMI) 39.1 39.1 [facility] Weight (Calculated Kilograms) 127.14 127.14 [facility] Height (Calculated Centimeters) 180.34 180. 34 [facility] Body Mass Index (BMI) 39.1 39.1 [facility] ID Date Data Source [id number] 04/11/2021 09:39:00 AM EDT [facility]ital Name Value Range Interpretation Code Description Data Source(s) Weight 4656 4656 [facility] Height 72 72 [facility] pital Weight Measurement Method 8 8 [facility] Weight 4656 4656 [facility] pital Temperature 97.1 97.1 [facility] spital Respiratory Effort 1 1 [facility] Respiratory Rate 18 18 [facility] Pulse Rate 75 75 [facility] Height 72 72 [facility] Blood Pressure 148/84 148/84 [facility] Weight Measurement Method 8 8 [facility] Weight 4656 4656 [facility] pital Temperature 97.1 97.1 [facility] spital Respiratory Effort 1 1 [facility] Respiratory Rate 18 18 [facility] Pulse Rate 75 75 [facility] pital Height 72 72 [facility] pital Blood Pressure 148/84 148/84 [facility] Weight 4656 4656 [facility]ital Respiratory Rate 17 17 [facility] Pulse Rate 80 80 [facility] pital Height 72 72 [facility] Weight 4656 4656 [facility] Height 72 72 [facility] pital ID Date Data Source [id number] 04/11/2021 09:39:00 AM EDT [facility] Name Value Range Interpretation Code Description Data Source(s) Weight Measurement Method 8 8 [facility] Weight 4480 4480 [facility] pital Temperature Source 7 7 [facility] Temperature 97.4 97.4 [facility] Respiratory Effort 1 1 [facility] Respiratory Rate 18 18 [facility] Pulse Assessment Method 4 4 [facility] Pulse Rate 98 98 [facility] pital Blood Pressure 142/98 142/98 [facility] Weight Measurement Method 8 8 [facility] Weight 4480 4480 [facility] pital Temperature Source 7 7 [facility] Temperature 97.4 97.4 [facility] spital Respiratory Effort 1 1 [facility] Respiratory Rate 18 18 [facility] Pulse Assessment Method 4 4 [facility] Pulse Rate 98 98 [facility] pital Blood Pressure 142/98 142/98 [facility] ID Date Data Source [id number] 04/11/2021 09:39:00 AM EDT [facility] spital Name Value Range Interpretation Code Description Data Source(s) Weight Measurement Method 8 8 [facility] Weight 4648 4648 [facility] pital Temperature Source 7 7 [facility] Temperature 100.3 100.3 [facility] spital Respiratory Effort 1 1 [facility] Respiratory Rate 20 20 [facility] Pulse Assessment Method 4 4 [facility] Pulse Rate 141 141 [facility] pital Height 72 72 [facility] pital Blood Pressure 128/80 128/80 [facility] Weight Measurement Method 8 8 [facility] Weight 4648 4648 [facility] pital Temperature Source 7 7 [facility] Temperature 100.3 100.3 [facility] spital Respiratory Effort 1 1 [facility] Respiratory Rate 20 20 [facility] Pulse Assessment Method 4 4 [facility] Pulse Rate 141 141 [facility] pital Height 72 72 [facility] pital Blood Pressure 128/80 128/80 [facility] ID Date Data Source [id number] 04/11/2021 09:39:00 AM EDT [facility] Name Value Range Interpretation Code Description Data Source(s) Weight Measurement Method 8 8 [facility] Weight 4560 4560 [facility] pital Temperature Source 1 1 [facility] Temperature 98.8 98.8 [facility] Respiratory Effort 1 1 [facility] Respiratory Rate 20 20 [facility] Pulse Assessment Method 4 4 [facility] Pulse Rate 133 133 [facility] pital Height 72 72 [facility] pital Blood Pressure 126/98 126/98 [facility] Weight Measurement Method 8 8 [facility] Weight 4560 4560 [facility] pital Temperature Source 7 7 [facility] Temperature 98.2 98.2 [facility] Respiratory Effort 1 1 [facility] Respiratory Rate 20 20 [facility] Pulse Assessment Method 4 4 [facility] Pulse Rate 123 123 [facility] pital Height 72 72 [facility] pital Blood Pressure 125/68 125/68 [facility] Weight Measurement Method 8 8 [facility] Weight 4560 4560 [facility] pital Temperature Source 7 7 [facility] Temperature 98.2 98.2 [facility] Respiratory Effort 1 1 [facility] Respiratory Rate 22 22 [facility] Pulse Assessment Method 4 4 [facility] Pulse Rate 113 113 [facility] pital Height 72 72 [facility] pital Blood Pressure 130/100 130/100 [facility] Weight Measurement Method 8 8 [facility] Weight 4560 4560 [facility] pital Temperature Source 7 7 [facility] Temperature 98.2 98.2 [facility] Respiratory Effort 1 1 [facility] Respiratory Rate 22 22 [facility] Pulse Assessment Method 4 4 [facility] Pulse Rate 113 113 [facility] pital Height 72 72 [facility] pital Blood Pressure 130/100 130/100 [facility] Weight Measurement Method 8 8 [facility] Weight 4560 4560 [facility] pital Temperature Source 7 7 [facility] Temperature 98.2 98.2 [facility] spital Respiratory Effort 1 1 [facility] Respiratory Rate 22 22 [facility] Pulse Assessment Method 4 4 [facility] Pulse Rate 113 113 [facility] 72 72 [facility] 130/100 130/100 [facility] Weight Measurement Method 8 8 [facility] Weight 4560 4560 [facility] pital Temperature Source 7 7 [facility] Temperature 98.2 98.2 [facility] spital Respiratory Effort 1 1 [facility] Respiratory Rate 22 22 [facility] Pulse Assessment Method 4 4 [facility] Pulse Rate 113 113 [facility] Height 72 72 [facility] 130/100 130/100 [facility] Patient Treatment Plan of Care Planned Activity Planned Date Details Description Data Source (s) rivaroxaban 15 MG Oral Tablet 02/06/2021 12:00:00 AM EDT [facility] Oxycodone Hydrochloride 15 MG Oral Tablet 02/03/2021 12:00:00 AM ED T [facility] oxyCODONE (ROXICODONE) immediate release tablet 15 mg 01/31/2021 11:01:59 AM EDT [facility] Bisacodyl 10 MG Rectal Suppository 01/31/2021 12:00:00 AM EDT [facility] Hydroxyzine Hydrochloride 25 MG Oral Tablet 01/30/2021 09:00:00 PM EDT [facility] Nitroglycerin 0.4 MG Sublingual Tablet 01/30/2021 04:44:16 PM EDT [facility] Ondansetron 4 MG Disintegrating Oral Tablet 01/30/2021 04:44:16 PM EDT [facility] ondansetron (ZOFRAN) injection 4 mg 01/30/2021 04:44:16 PM EDT [facility] Mineral Oil 1000 MG/ML Enema 01/30/2021 04:44:16 PM EDT [facility] Calcium Carbonate 500 MG Chewable Tablet 01/30/2021 04:44:15 PM EDT [facility] Benzocaine 6 MG / Menthol 10 MG Oral Lozenge 01/30/2021 04:44:15 PM EDT [facility] Mupirocin 0.02 MG/MG Topical Ointment 01/25/2021 12:00:00 AM EDT [facility] rivaroxaban 15 MG Oral Tablet [facility] Daily Gabriel (THERAGRAN) per tablet [facility] 1 ML Enoxaparin sodium 150 MG/ML Prefilled Syringe [facility] pantoprazole 40 MG Delayed Release Oral Tablet [facility] Sucralfate 1000 MG Oral Tablet [facility] Spironolactone 25 MG Oral Tablet [facility] Acetaminophen 325 MG / Oxycodone Hydrochloride 10 MG Oral Tablet [facility] Sucralfate 100 MG/ML Oral Suspension PLACIDO ([facility]) Prednisone 20 MG Oral Tablet PLACIDO ([facility]) pantoprazole 40 MG Delayed Release Oral Tablet PLACIDO ([facility]) Acetaminophen 325 MG / Oxycodone Hydrochloride 7.5 MG Oral Tablet PLACIDO ([facility]) Acetaminophen 325 MG / Oxycodone Hydrochloride 5 MG Oral Tablet PLACIDO ([facility]) Oxycodone Hydrochloride 5 MG Oral Tablet PLACIDO ([facility]) Nitroglycerin 0.4 MG Sublingual Tablet PLACIDO ([facility]) Lisinopril 40 MG Oral Tablet [facility]ACIDO ([facility]) Hydroxyzine Hydrochloride 25 MG Oral Tablet [facility] ([facility]) gabapentin 300 MG Oral Tablet [Gralise] PLACIDO ([facility]) Colchicine 0.6 MG Oral Tablet PLACIDO ([facility]) albuterol sulfate HFA 90 mcg/actuation aerosol inhaler PLACIDO ([facility])
[2021-05-06] MEDS ORDERED: MAG SULF 1GM/100ML (MAG RUN) 1 GM in IV 1 EA IV ONE (02:45)
[2021-05-06] MEDS ORDERED: SODIUM CHLORIDE 0.9% 1000ML IV STA (04:58)
[2021-05-06] MEDS ORDERED: VANCOMYCIN HCL 1,000 MG, VIAL MATE ADAPTER 1 EACH in NS 250 ML IV SCH (05:30)
[2021-05-06] MEDS ORDERED: VANCOMYCIN HCL 1,000 MG, VIAL MATE ADAPTER 1 EACH in NS 250 ML IV ONE ×2 (06:00→07:00)
[2021-05-06] MEDS ORDERED: METOPROLOL TART 25 MG TABLET PO SCH (06:00)
[2021-05-06 06:26] LABS: HEMATOCRIT 26.7 % (42.0-52.0); HEMOGLOBIN 8.4 g/dl (13.5-17.5); MEAN CORPUSCULAR HEMOGLOBIN 30.9 pg (27.0-33.0); MEAN CORPUSCULAR HGB CONC 31.5 g/dl (32.0-36.5); MEAN CORPUSCULAR VOLUME 98.2 fl (80.0-96.0); PLATELET COUNT, AUTOMATED 162 10^3/uL (150-450); RED BLOOD COUNT 2.72 10^6/uL (4.30-6.10)
--- NOTE | 2021-05-06 06:34 | REPVR ---
PROCEDURE INFORMATION: Exam: XR Chest Exam date and time: 05/06/2021 5:24 AM Age: 65 years old Clinical indication: Other: Suspect infection; Additional info: Sirs suspect infection TECHNIQUE: Imaging protocol: XR of the chest. Views: 1 view. COMPARISON: CT Chest without contrast 01/13/2020 12:32 PM FINDINGS: Lungs: Mild bilateral perihilar reticulonodular opacities. Pleural spaces: Unremarkable. No pleural effusion. No pneumothorax. Heart/Mediastinum: Cardiomegaly. Vasculature: Atherosclerotic disease of the thoracic aorta. Bones/joints: Unremarkable. IMPRESSION: Mild bilateral perihilar reticulonodular opacities. Electronically signed by: Angel Stearns On 05/06/2021 06:33:14 AM
[2021-05-06 06:45] LABS: PERCENT SATURATION 6.6 % (19.7-50.0)
[2021-05-06 06:46] LABS: ALBUMIN 2.3 GM/DL (3.2-5.2); BILIRUBIN,TOTAL 0.9 MG/DL (0.2-1.0); CALCIUM LEVEL 8.1 MG/DL (8.8-10.2); CREATININE FOR GFR 1.45 MG/DL (0.70-1.30); GLOMERULAR FILTRATION RATE 51.8 (>49); MAGNESIUM LEVEL 1.9 MG/DL (1.8-2.4); TOTAL PROTEIN 5.1 GM/DL (6.4-8.2)
[2021-05-06 06:48] LABS: HEMOGLOBIN A1c 5.3 %
--- NOTE | 2021-05-06 06:58 | IPNPDOC ---
Text Note Date of Service The patient was seen on 05/06/21. NOTE Suspected sepsis -sepsis order set w abx / f/u pancx / dc anti-HTN meds TIFFANIE ARANA MD May 06, 2021 06:58
[2021-05-06] MEDS: DOCUSATE SODIUM 100MG CAPSULE PO SCH ×2 (08:58→21:22)
[2021-05-06] MEDS: allopurinoL 100 MG TAB PO SCH (08:58)
[2021-05-06] MEDS: POTASSIUM CHLORIDE 10MEQ SR TABLET PO SCH (08:58)
[2021-05-06] MEDS: MULTIVITAMINS/MINERALS THERAP 1 TAB PO SCH (08:58)
[2021-05-06] MEDS: FOLIC ACID 1 MG TAB PO SCH (08:58)
[2021-05-06] MEDS: THIAMINE 100 MG TAB PO SCH ×2 (08:58→21:23)
[2021-05-06] MEDS: NS 1,000 ML IV SCH ×2 (08:59→18:44)
[2021-05-06] MEDS ORDERED: FUROSEMIDE 40 MG TAB PO SCH (09:00)
[2021-05-06] MEDS ORDERED: SPIRONOLACTONE 25 MG TAB PO SCH (09:00)
[2021-05-06 09:59] LABS: HEMATOCRIT 25.4 % (42.0-52.0); HEMOGLOBIN 8.1 g/dl (13.5-17.5); MEAN CORPUSCULAR HEMOGLOBIN 31.6 pg (27.0-33.0); MEAN CORPUSCULAR HGB CONC 31.9 g/dl (32.0-36.5); MEAN CORPUSCULAR VOLUME 99.2 fl (80.0-96.0); PLATELET COUNT, AUTOMATED 150 10^3/uL (150-450); RED BLOOD COUNT 2.56 10^6/uL (4.30-6.10); WHITE BLOOD COUNT 13.3 10^3/uL (4.0-10.0)
[2021-05-06 10:24] LABS: CALCIUM LEVEL 8.1 MG/DL (8.8-10.2); CREATININE FOR GFR 1.3 MG/DL (0.70-1.30); GLOMERULAR FILTRATION RATE 58.8 (>49)
[2021-05-06] MEDS: PIPERACILLIN/TAZOBACTAM SOD 4.5 GM in D5W MINI-BAG PLUS 50 ML IV SCH ×3 (10:36→21:22)
[2021-05-06] MEDS: MORPHINE 1MG/ML IN 0.9% NACL 100ML IV BAG IV PRN (11:11)
[2021-05-06] MEDS ORDERED: HumaLOG INSULIN (NovoLOG) PER UNIT SC SCH ×2 (12:00→21:00)
--- NOTE | 2021-05-06 12:21 | IPN ---
PROGRESS NOTE DATE: 05/06/2021 TIME: 11 a.m. PHYSICIAN: Wayne Hernandez MD SERVICE: Orthopedic surgery. SUBJECTIVE: This is a 65-year-old male postop day 1 of left humeral shaft open reduction and internal fixation. The patient was resting comfortably in bed today using his left upper extremity as tolerated. The patient had a restful night and was having much improved pain than prior to surgery. OBJECTIVE: The patient's Prevena negative pressure wound therapy dressing was intact with scant drainage. However, his BOUBACAR drain drained 100 mL of blood over the previous 12 hour shift. Left upper extremity was neurovascularly intact. He had 5/5 motor strength to the axillary, radial, median and ulnar nerve distributions, 4/5 in musculocutaneous musculature. He had sensation intact to light touch to the musculocutaneous, axillary, radial, median and ulnar nerve distributions. He had palpable radial and ulnar pulse with brisk cap refill to the digits. His left hand swelling was much improved. ASSESSMENT: This is a 65-year-old male postop day 1 of left humeral shaft fracture and open reduction and internal fixation surgery. The patient is doing well as expected at this point in time. PLAN: At this point in time I plan to initiate physical therapy for range of motion as tolerated to left upper extremity. I encouraged the patient to move his left upper extremity in order to facilitate drainage of the hematoma as well as in order to encourage reconditioning of his left upper extremity. I recommend physical therapy be initiated as soon as possible, likely at the latest Saturday, 08 of May, in order to return this patient to his baseline activities. This will involve range of motion as tolerated to the left upper extremity and 10-15 pound weight restriction. The patient can use the left upper extremity for transfers and balance. I would focus on elbow and shoulder range of motion and strengthening. Regarding his Prevena wound VAC I recommend maintenance of his Prevena incisional wound VAC likely for another 48 hours at which point I would recommend redressing of the Prevena wound VAC in order to ensure that the surgical incision is maintaining hygiene. The BOUBACAR drain will likely stay in the patient's surgical site for an additional 48 to 72 hours or until the hematoma drainage is under 45 mL which is one container of drainage over a 24 hour shift.
--- NOTE | 2021-05-06 13:07 | IPNPDOC ---
Text Note Date of Service The patient was seen on 05/06/21. NOTE SUBJECTIVE: -Had low grade temp overnight, suspected sepsis was started on fluids ordered for >3L NS, thus far has had 1L, started on vanc/piptazo, otherwise normotensive -Complaining of arm pain -s/p L ORIF overnight OBJECTIVE: VITAL SIGNS: Please see below. GENERAL APPEARANCE: Left arm in sling. NAD HEENT: NCAT, EOMI, MMM CARDIOVASCULAR: Irregularly irregular rhythm. No murmurs, rubs, gallops LUNGS: Diminished breath sounds without noted wheezing, rales, rhonchi ABDOMEN: Normoactive bowel sounds, soft, NTND MUSCULOSKELETAL:Left upper extremity in sling, edematous w/ ecchymoses. EXTREMITIES: No pedal edema, 2+ DP pulses, WWP NEUROLOGICAL: A+Ox3. No focal deficits, sensation present in LUE, moves fingers PSYCHIATRIC: AOx3 LABORATORY DATA: WBC 16 Hgb 8.4 platelets 162 na 127 k 5 Cr 1.45 IMAGING: Hand XR: FINDINGS: Bones/joints: No acute fracture or dislocation. Soft tissues: Diffuse soft tissue swelling of the hand and distal forearm extending into the proximal fingers. IMPRESSION: 1. Diffuse soft tissue swelling. 2. Otherwise negative limited left hand. CXR: Lungs: Mild bilateral perihilar reticulonodular opacities. Pleural spaces: Unremarkable. No pleural effusion. No pneumothorax. Heart/Mediastinum: Cardiomegaly. Vasculature: Atherosclerotic disease of the thoracic aorta. Bones/joints: Unremarkable. IMPRESSION: Mild bilateral perihilar reticulonodular opacities. MICROBIOLOGY: Please see below. ASSESSMENT: 65 y/o M with a history of chronic a-fib on xarelto, htn, liver cirrhosis, copd, gout, fatou who does not wear cpap and obesity who was originally seen in our ED on 04/25 after he suffered a fall and was subsequently diagnosed with a left humeral fracture and discharged home with sling with plan for outpatient repair but subsequently admitted to [place] for management of electrolyte abnormalities with a course that was c/b by development of a large hematoma and severe pain in the left upper extremity and was transferred overnight for surgical intervention now s/p ORIF of left humeral fracture with left humeral intramedullary nail insertion with course c/b presumed sepsis w/ fever, worsening leukocytosis and relative hypotension. 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 - bowel regimen ordered SIRS with c/f sepsis -Overnight all antihypertensives were held including his rate control meds, which I will restart to prevent reflex RVR w/ hx of Afib -thus far has had 1L NS bolus, asked nursing to recheck BP now, if normotensive, will place on maintenance slow fluids, NS instead of giving the other 2L of boluses -continue vanc and pip/tazo, f/u MRSA PCR for de-escalation -CXR showed some hilar reticulonofular opacities, will check procal, UA was bland, BCx NGTD Chronic A-fib - pt had transient episode of rvr while in the pacu most likely 2/2 pain - tele and monitor rate - continue home metoprolol - will continue to hold xarelto for now, to coordinate with ortho when it is safe to restart anticoagulation Alcoholic liver cirrhosis - pt continues to drink, on ciwa protocol - liver enzymes showing 2:1 ast:alt ratio, typical of alcoholic liver dz COPD: no evidence of acute exacerbation - pt requiring oxygen at this time, however this is more likely secondary to anesthesia - will continue o2 titrated to 88-92 - monitor - continue at home inhalers CKD - cr at baseline HTN - Holding amlodipine, lasix, spironolactone while presumed septic Gout - continue allopurinol DVT prophylaxis - mechanical for now VS,Fishbone, I+O VS, Fishbone, I+O Laboratory Tests 05/05/21 23:23 05/06/21 00:24 05/06/21 00:55 05/06/21 05:43 Vital Signs Date Time Temp Pulse Resp B/P (MAP) Pulse Ox O2 Delivery O2 Flow Rate FiO2 05/06/21 06:00 87 98/60 05/06/21 04:30 97.8 20 96 Nasal Cannula 2.0 I&O- Last 24 Hours up to 6 AM 05/06/21 05:59 Intake Total 2695 ml Output Total 1520 ml Balance 1175 ml GRABIEL RIVAS MD May 06, 2021 08:32
[2021-05-06] MEDS: METOPROLOL TART 25 MG TABLET PO SCH ×2 (13:24→21:23)
[2021-05-06] MEDS: PERCOCET 5MG/325MG TAB PO PRN ×2 (15:51→21:28)
[2021-05-06] MEDS ORDERED: VANCOMYCIN HCL 750 MG, VIAL MATE ADAPTER 1 EACH in NS 250 ML IV SCH (21:00)
[2021-05-06] MEDS ORDERED: VANCOMYCIN HCL 500 MG in D5W MINI-BAG PLUS 100 ML IV SCH (22:00)
[2021-05-07] VITALS (18 sets, daily range): BP systolic 95–145; BP diastolic 50–85; O2SAT 88–98
[2021-05-07] MEDS: PIPERACILLIN/TAZOBACTAM SOD 4.5 GM in D5W MINI-BAG PLUS 50 ML IV SCH ×2 (02:05→08:23)
[2021-05-07] MEDS: MORPHINE 1MG/ML IN 0.9% NACL 100ML IV BAG IV PRN (02:40)
[2021-05-07 05:40] LABS: HEMATOCRIT 25.2 % (42.0-52.0); HEMOGLOBIN 7.6 g/dl (13.5-17.5); MEAN CORPUSCULAR HGB CONC 30.2 g/dl (32.0-36.5); MEAN CORPUSCULAR VOLUME 102.9 fl (80.0-96.0); PLATELET COUNT, AUTOMATED 148 10^3/uL (150-450); RED BLOOD COUNT 2.45 10^6/uL (4.30-6.10); WHITE BLOOD COUNT 8.6 10^3/uL (4.0-10.0)
[2021-05-07] MEDS: METOPROLOL TART 25 MG TABLET PO SCH ×3 (05:47→21:23)
[2021-05-07] MEDS: PERCOCET 5MG/325MG TAB PO PRN ×4 (05:51→23:03)
[2021-05-07 06:10] LABS: ALBUMIN 2.4 GM/DL (3.2-5.2); BILIRUBIN,TOTAL 0.8 MG/DL (0.2-1.0); CREATININE FOR GFR 1.28 MG/DL (0.70-1.30); GLOMERULAR FILTRATION RATE 59.9 (>49); MAGNESIUM LEVEL 1.9 MG/DL (1.8-2.4); POTASSIUM SERUM 4.6 MEQ/L (3.5-5.1); TOTAL PROTEIN 5.6 GM/DL (6.4-8.2)
[2021-05-07] MEDS: POTASSIUM CHLORIDE 10MEQ SR TABLET PO SCH (08:23)
[2021-05-07] MEDS: DOCUSATE SODIUM 100MG CAPSULE PO SCH ×2 (08:23→21:23)
[2021-05-07] MEDS: FOLIC ACID 1 MG TAB PO SCH (08:24)
[2021-05-07] MEDS: MULTIVITAMINS/MINERALS THERAP 1 TAB PO SCH (08:24)
[2021-05-07] MEDS: allopurinoL 100 MG TAB PO SCH (08:24)
[2021-05-07] MEDS: THIAMINE 100 MG TAB PO SCH ×2 (08:28→21:23)
--- NOTE | 2021-05-07 09:36 | IPNPDOC ---
Text Note Date of Service The patient was seen on 05/07/21. NOTE SUBJECTIVE: -Complaining of arm pain -Afebrile, no subjective fever or chills OBJECTIVE: VITAL SIGNS: Please see below. GENERAL APPEARANCE: Left arm in sling. NAD HEENT: NCAT, EOMI, MMM CARDIOVASCULAR: Irregularly irregular rhythm. No murmurs, rubs, gallops LUNGS: Diminished breath sounds without noted wheezing, rales, rhonchi ABDOMEN: Normoactive bowel sounds, soft, NTND MUSCULOSKELETAL:Left upper extremity in sling, edematous w/ ecchymoses. EXTREMITIES: No pedal edema, 2+ DP pulses, WWP NEUROLOGICAL: A+Ox3. No focal deficits, sensation present in LUE, moves fingers PSYCHIATRIC: AOx3 LABORATORY DATA: WBC 8.6 Hgb 7.6 platelets 148 na 130 Cr 1.28 MRSA negative IMAGING: Hand XR: FINDINGS: Bones/joints: No acute fracture or dislocation. Soft tissues: Diffuse soft tissue swelling of the hand and distal forearm extending into the proximal fingers. IMPRESSION: 1. Diffuse soft tissue swelling. 2. Otherwise negative limited left hand. CXR: Lungs: Mild bilateral perihilar reticulonodular opacities. Pleural spaces: Unremarkable. No pleural effusion. No pneumothorax. Heart/Mediastinum: Cardiomegaly. Vasculature: Atherosclerotic disease of the thoracic aorta. Bones/joints: Unremarkable. IMPRESSION: Mild bilateral perihilar reticulonodular opacities. MICROBIOLOGY: Please see below. ASSESSMENT: 65 y/o M with a history of chronic a-fib on xarelto, htn, liver cirrhosis, copd, gout, fatou who does not wear cpap and obesity who was originally seen in our ED on 04/25 after he suffered a fall and was subsequently diagnosed with a left humeral fracture and discharged home with sling with plan for outpatient repair but subsequently admitted to [place] for management of electrolyte abnormalities with a course that was c/b by development of a large hematoma and severe pain in the left upper extremity and was transferred for surgical interv ention now s/p ORIF of left humeral fracture with left humeral intramedullary nail insertion with course c/b presumed sepsis w/ fever, worsening leukocytosis and relative hypotension. 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 and home percocet PRN for severe breakthrough pain - bowel regimen ordered SIRS with c/f sepsis -All antihypertensives were held, except for BB -s/p fluids -De-escalate vanc and pip/tazo to ancef -MRSA PCR negative, BCx negative to date, UA negative for bacteria -CXR showed some hilar reticulonofular opacities, f/u procal, UA was bland, BCx NGTD Chronic A-fib - pt had transient episode of rvr while in the pacu most likely 2/2 pain - tele and monitor rate - continue home metoprolol - will continue to hold xarelto for now, to coordinate with ortho when it is safe to restart anticoagulation Alcoholic liver cirrhosis - pt continues to drink, on ciwa protocol - liver enzymes showing 2:1 ast:alt ratio, typical of alcoholic liver dz COPD: no evidence of acute exacerbation - pt requiring oxygen at this time, however this is more likely secondary to anesthesia - will continue o2 titrated to 88-92 - monitor - continue at home inhalers CKD - cr at baseline HTN - Holding amlodipine, lasix, spironolactone while presumed septic Gout - continue allopurinol DVT prophylaxis - mechanical for now VS,Fishbone, I+O VS, Fishbone, I+O Laboratory Tests 05/06/21 09:31 05/07/21 04:56 Vital Signs Date Time Temp Pulse Resp B/P (MAP) Pulse Ox O2 Delivery O2 Flow Rate FiO2 05/07/21 08:00 97.1 92 18 113/66 (82) 96 Nasal Cannula 2.0 I&O- Last 24 Hours up to 6 AM 05/07/21 06:00 Intake Total 2140 ml Output Total 2590 ml Balance -450 ml GRABIEL RIVAS MD May 07, 2021 09:36
[2021-05-07] MEDS: SYMBICORT 80/4.5MCG INHALER 6GM INH SCH ×2 (11:48→20:12)
[2021-05-07] MEDS: guaiFENesin ER 600 MG TAB PO SCH ×2 (12:04→21:23)
[2021-05-07] MEDS: ceFAZolin SOD 1 GM in D5W MINI-BAG PLUS 50 ML IV SCH ×2 (13:45→21:23)
[2021-05-07] MEDS ORDERED: PERCOCET 5MG/325MG TAB PO PRN (18:00)
[2021-05-07] MEDS: zolPIDEM TARTRATE 5 MG TAB PO SCH (21:24)
[2021-05-08] VITALS (16 sets, daily range): BP systolic 125–139; BP diastolic 57–65; O2SAT 88–97
[2021-05-08 05:19] LABS: HEMATOCRIT 29.2 % (42.0-52.0); HEMOGLOBIN 8.8 g/dl (13.5-17.5); MEAN CORPUSCULAR HEMOGLOBIN 30.8 pg (27.0-33.0); MEAN CORPUSCULAR HGB CONC 30.1 g/dl (32.0-36.5); MEAN CORPUSCULAR VOLUME 102.1 fl (80.0-96.0); PLATELET COUNT, AUTOMATED 144 10^3/uL (150-450); RED BLOOD COUNT 2.86 10^6/uL (4.30-6.10)
[2021-05-08 05:36] LABS: ALBUMIN 2.3 GM/DL (3.2-5.2); ALT/SGPT 11 U/L (12-78); BILIRUBIN,TOTAL 0.7 MG/DL (0.2-1.0); BLOOD UREA NITROGEN 23 MG/DL (7-18); CARBON DIOXIDE LEVEL 34 MEQ/L (21-32); CHLORIDE LEVEL 99 MEQ/L (98-107); CREATININE FOR GFR 1.04 MG/DL (0.70-1.30); GLOMERULAR FILTRATION RATE > 60.0 (>49); GLUCOSE, FASTING 111 MG/DL (70-100); MAGNESIUM LEVEL 1.8 MG/DL (1.8-2.4); POTASSIUM SERUM 4.8 MEQ/L (3.5-5.1); SODIUM LEVEL 135 MEQ/L (136-145); TOTAL PROTEIN 5.3 GM/DL (6.4-8.2)
[2021-05-08] MEDS: ceFAZolin SOD 1 GM in D5W MINI-BAG PLUS 50 ML IV SCH (06:26)
[2021-05-08] MEDS: METOPROLOL TART 25 MG TABLET PO SCH ×3 (06:30→21:24)
[2021-05-08] MEDS: allopurinoL 100 MG TAB PO SCH (08:04)
[2021-05-08] MEDS: FOLIC ACID 1 MG TAB PO SCH (08:04)
[2021-05-08] MEDS: MULTIVITAMINS/MINERALS THERAP 1 TAB PO SCH (08:04)
[2021-05-08] MEDS: ACETAMINOPHEN TAB 650MG DOSE (2X325MG) PO PRN ×2 (08:04→21:26)
[2021-05-08] MEDS: guaiFENesin ER 600 MG TAB PO SCH ×2 (08:05→21:20)
[2021-05-08] MEDS: THIAMINE 100 MG TAB PO SCH ×2 (08:05→21:20)
[2021-05-08] MEDS: DOCUSATE SODIUM 100MG CAPSULE PO SCH ×2 (08:05→21:00)
[2021-05-08] MEDS: POTASSIUM CHLORIDE 10MEQ SR TABLET PO SCH (08:05)
[2021-05-08] MEDS: SYMBICORT 80/4.5MCG INHALER 6GM INH SCH ×2 (08:30→19:36)
[2021-05-08] MEDS: PERCOCET 5MG/325MG TAB PO PRN ×2 (10:30→18:08)
[2021-05-08] MEDS: CEPHALEXIN 250MG CAPSULE PO SCH ×2 (12:01→18:06)
[2021-05-08 12:24] LABS: FOLATE 9.2 NG/ML (>5.4)
--- NOTE | 2021-05-08 12:50 | RO ---
OPERATIVE NOTE DATE OF OPERATION: 05/05/2021 PREOPERATIVE DIAGNOSES: 1. Left humeral shaft fracture. 2. 500 mL hematoma. POSTOPERATIVE DIAGNOSES: 1. Left humeral shaft fracture. 2. 500 mL hematoma. PROCEDURE: Left humerus open reduction and internal fixation. SURGEON: Wayne Hernandez MD TAB BUILDER: Ricky Mitchell MD SUPERVISING ATTENDING: Wayne Hernandez MD ANESTHESIA: GETA. TOURNIQUET TIME: None used. ESTIMATED BLOOD LOSS: 300 mL. IV FLUIDS: Please see anesthesia report. IV ANTIBIOTICS: Please see anesthesia report. IMPLANTS: Synthes. CULTURES: None. SPECIMEN: None. FINDINGS: The patient had massive hematoma of the left arm fracture site. Approximately 500 mL of blood within the fracture site encapsulated in the biceps fascia was appreciated. The patient also had significant displacement of humeral shaft fracture. INDICATIONS: This is a 65-year-old male who presented to [facility] on the April, for left midshaft humerus fracture. He presented to [facility] after a ground level fall at [address] in the [address]. Dr. Rapp was initially consulted for the surgery. He was placed in a coaptation splint and sent to the [facility] on the April,. Dr. Rapp transferred the patient's care to myself and he was scheduled for left humerus open reduction and internal fixation. DESCRIPTION OF PROCEDURE: The patient was met in the preoperative holding area. The patient's operative extremity was signed. The patient's consent was confirmed to be correct. The patient's identity was confirmed to be correct. The patient was transported to the operating theater where he was placed in the supine position on regular surgical flattop bed with radiolucent hand table extension. Safety straps secured the patient to the bed. All bony prominences were well padded. Bilateral lower extremity SCDs placed. Time out was called to confirm correct patient, correct operative extremity, and correct consent. All staff was in agreement. The patient was then draped in the usual sterile fashion. We obtained preoperative radiographs to ensure that we marked out our fracture site. We did not use a tourniquet as this would make it difficult to expose the fracture site. I incised the skin sharply utilizing deltopectoral approach proximally and anterior approach to the humeral shaft distally. After incising the skin sharply using meticulous hemostasis I made my way to the lateral border of the fascia of the biceps. At this point in time I realized that I needed to extend my incision proximally and I utilized the deltopectoral interval, identifying the cephalic vein. This was protected throughout the remainder of the case. However, this did lead us proximally to the perfect interval between the pectoralis major and the anterior aspect of the deltoid. This was then extended proximally bluntly to the level of the greater tuberosity. We then turned our attention to the midshaft of the humerus and developed the interval between the lateral aspect of the biceps and the brachialis musculature. The fracture was at this level and had caused significant disruption of the brachialis musculature making this interval essentially deformed at the fracture level. We then retracted the biceps muscle medially, protecting the musculocutaneous nerve and split the remainder of the brachialis musculature cuts off/verified/ml
--- NOTE | 2021-05-08 14:17 | IPNPDOC ---
Text Note Date of Service The patient was seen on 05/08/21. NOTE SUBJECTIVE: -Pain is better controlled now -Afebrile, no subjective fever or chills OBJECTIVE: VITAL SIGNS: Please see below. GENERAL APPEARANCE: Left arm in sling. NAD HEENT: NCAT, EOMI, MMM CARDIOVASCULAR: Irregularly irregular rhythm. No murmurs, rubs, gallops LUNGS: Diminished breath sounds without noted wheezing, rales, rhonchi ABDOMEN: Normoactive bowel sounds, soft, NTND MUSCULOSKELETAL:Left upper extremity in sling, edematous w/ ecchymoses. EXTREMITIES: No pedal edema, 2+ DP pulses, WWP NEUROLOGICAL: A+Ox3. No focal deficits, sensation present in LUE, moves fingers PSYCHIATRIC: AOx3 LABORATORY DATA: WBC 10 Hgb 8.8 platelets 144 na 135 K 4.8 Cr 1.04 MRSA negative IMAGING: Hand XR: FINDINGS: Bones/joints: No acute fracture or dislocation. Soft tissues: Diffuse soft tissue swelling of the hand and distal forearm extending into the proximal fingers. IMPRESSION: 1. Diffuse soft tissue swelling. 2. Otherwise negative limited left hand. CXR: Lungs: Mild bilateral perihilar reticulonodular opacities. Pleural spaces: Unremarkable. No pleural effusion. No pneumothorax. Heart/Mediastinum: Cardiomegaly. Vasculature: Atherosclerotic disease of the thoracic aorta. Bones/joints: Unremarkable. IMPRESSION: Mild bilateral perihilar reticulonodular opacities. MICROBIOLOGY: Please see below. ASSESSMENT: 65 y/o M with a history of chronic a-fib on xarelto, htn, liver cirrhosis, copd, gout, fatou who does not wear cpap and obesity who was originally seen in our ED on 04/25 after he suffered a fall and was subsequently diagnosed with a left humeral fracture and discharged home with sling with plan for outpatient repair but subsequently admitted to [facility] for management of electrolyte abnormalities with a course that was c/b by development of a large hematoma and severe pain in the left upper extremity and was transferred for surgical intervention now s/p ORIF of left humeral fracture with left humeral intramedullary nail insertion with course c/b presumed sepsis w/ fever, worsening leukocytosis and relative hypotension. PLAN: Acute on chronic anemia i/s/o hematoma -s/p 1u pRBC, goal hgb >8 -Borderline iron deficient, with ferritin ~100, and low Fe, will start on ferrous sulfate daily Left humeral fx: s/p L ORIF - S/p orif with orthopedics, ortho on consult - On morphine tie worker for pain control and home percocet PRN for severe breakthrough pain - bowel regimen ordered SIRS with c/f sepsis -All antihypertensives were held, except for BB -s/p fluids -Switch IV ancef to PO keflex -MRSA PCR negative, BCx negative to date, UA negative for bacteria -CXR showed some hilar reticulonofular opacities, f/u procal, UA was bland, BCx NGTD Chronic A-fib - pt had transient episode of rvr while in the pacu most likely 2/2 pain - tele and monitor rate - continue home metoprolol - will continue to hold xarelto for now, to coordinate with ortho when it is safe to restart anticoagulation Alcoholic liver cirrhosis - pt continues to drink, on ciwa protocol - liver enzymes showing 2:1 ast:alt ratio, typical of alcoholic liver dz COPD: no evidence of acute exacerbation - pt requiring oxygen at this time, however this is more likely secondary to anesthesia - will continue o2 titrated to 88-92 - monitor - continue at home inhalers CKD - cr at baseline HTN - Holding amlodipine, lasix, spironolactone while presumed septic Gout - continue allopurinol DVT prophylaxis - mechanical for now VS,Fishbone, I+O VS, Fishbone, I+O Laboratory Tests 05/08/21 04:50 Vital Signs Date Time Temp Pulse Resp B/P (MAP) Pulse Ox O2 Delivery O2 Flow Rate FiO2 05/08/21 08:00 99.6 78 18 129/60 (83) 92 Nasal Cannula 2.0 I&O- Last 24 Hours up to 6 AM 05/08/21 06:00 Intake Total 2410 ml Output Total 3710 ml Balance -1300 ml GRABIEL RIVAS MD May 08, 2021 10:57
[2021-05-08] MEDS: IPRATROPIUM 0.5MG/ALBUTEROL 2.5MG INH SOL UD 3ML (DUONEB) NEB SCH ×2 (15:47→19:36)
[2021-05-08] MEDS: FUROSEMIDE 40 MG TAB PO SCH (18:06)
[2021-05-08] MEDS: zolPIDEM TARTRATE 5 MG TAB PO SCH (21:26)
[2021-05-09] VITALS (11 sets, daily range): BP systolic 116–142; BP diastolic 62–71; O2SAT 94–97
[2021-05-09] MEDS: PERCOCET 5MG/325MG TAB PO PRN ×5 (00:15→20:37)
[2021-05-09] MEDS: CEPHALEXIN 250MG CAPSULE PO SCH ×2 (00:31→05:26)
[2021-05-09] MEDS: IPRATROPIUM 0.5MG/ALBUTEROL 2.5MG INH SOL UD 3ML (DUONEB) NEB SCH ×4 (02:00→20:00)
[2021-05-09] MEDS: METOPROLOL TART 25 MG TABLET PO SCH ×3 (05:27→21:59)
[2021-05-09 05:58] LABS: HEMATOCRIT 29.6 % (42.0-52.0); HEMOGLOBIN 9.1 g/dl (13.5-17.5); MEAN CORPUSCULAR HEMOGLOBIN 30.7 pg (27.0-33.0); MEAN CORPUSCULAR HGB CONC 30.7 g/dl (32.0-36.5); PLATELET COUNT, AUTOMATED 148 10^3/uL (150-450); RED BLOOD COUNT 2.96 10^6/uL (4.30-6.10); WHITE BLOOD COUNT 8.2 10^3/uL (4.0-10.0)
[2021-05-09 06:20] LABS: ALBUMIN 2.3 GM/DL (3.2-5.2); ALT/SGPT 12 U/L (12-78); BILIRUBIN,TOTAL 0.7 MG/DL (0.2-1.0); BLOOD UREA NITROGEN 18 MG/DL (7-18); CALCIUM LEVEL 8.3 MG/DL (8.8-10.2); CARBON DIOXIDE LEVEL 32 MEQ/L (21-32); CHLORIDE LEVEL 100 MEQ/L (98-107); CREATININE FOR GFR 0.78 MG/DL (0.70-1.30); GLOMERULAR FILTRATION RATE > 60.0 (>49); GLUCOSE, FASTING 95 MG/DL (70-100); MAGNESIUM LEVEL 1.8 MG/DL (1.8-2.4); POTASSIUM SERUM 4.5 MEQ/L (3.5-5.1); SODIUM LEVEL 136 MEQ/L (136-145); TOTAL PROTEIN 5.5 GM/DL (6.4-8.2)
[2021-05-09] MEDS: DOCUSATE SODIUM 100MG CAPSULE PO SCH ×2 (08:05→21:58)
[2021-05-09] MEDS: guaiFENesin ER 600 MG TAB PO SCH ×2 (08:05→21:59)
[2021-05-09] MEDS: MULTIVITAMINS/MINERALS THERAP 1 TAB PO SCH (08:05)
[2021-05-09] MEDS: FOLIC ACID 1 MG TAB PO SCH (08:05)
[2021-05-09] MEDS: allopurinoL 100 MG TAB PO SCH (08:06)
[2021-05-09] MEDS: FUROSEMIDE 40 MG TAB PO SCH (08:07)
[2021-05-09] MEDS: SYMBICORT 80/4.5MCG INHALER 6GM INH SCH ×2 (08:43→20:56)
[2021-05-09] MEDS: LevoFLOXacin 750 MG TABLET PO SCH (09:48)
--- NOTE | 2021-05-09 13:36 | IPNPDOC ---
Text Note Date of Service The patient was seen on 05/09/21. NOTE SUBJECTIVE: -More awake this AM -Afebrile, no subjective fever or chills OBJECTIVE: VITAL SIGNS: Please see below. GENERAL APPEARANCE: Left arm in sling. NAD HEENT: NCAT, EOMI, MMM CARDIOVASCULAR: Irregularly irregular rhythm. No murmurs, rubs, gallops LUNGS: Diminished breath sounds without noted wheezing, rales, rhonchi ABDOMEN: Normoactive bowel sounds, soft, NTND MUSCULOSKELETAL:Left upper extremity in sling, edematous w/ ecchymoses. EXTREMITIES: No pedal edema, 2+ DP pulses, WWP NEUROLOGICAL: A+Ox3. No focal deficits, sensation present in LUE, moves fingers PSYCHIATRIC: AOx3 LABORATORY DATA: WBC 8.2 Hgb 9.1 platelets 148 na 136 K 4.5 Cr 0.78 MRSA negative IMAGING: Hand XR: FINDINGS: Bones/joints: No acute fracture or dislocation. Soft tissues: Diffuse soft tissue swelling of the hand and distal forearm extending into the proximal fingers. IMPRESSION: 1. Diffuse soft tissue swelling. 2. Otherwise negative limited left hand. CXR: Lungs: Mild bilateral perihilar reticulonodular opacities. Pleural spaces: Unremarkable. No pleural effusion. No pneumothorax. Heart/Mediastinum: Cardiomegaly. Vasculature: Atherosclerotic disease of the thoracic aorta. Bones/joints: Unremarkable. IMPRESSION: Mild bilateral perihilar reticulonodular opacities. MICROBIOLOGY: Please see below. ASSESSMENT: 65 y/o M with a history of chronic a-fib on xarelto, htn, liver cirrhosis, copd, gout, fatou who does not wear cpap and obesity who was originally seen in our ED on 04/25 after he suffered a fall and was subsequently diagnosed with a left humeral fracture and discharged home with [facility] with plan for outpatient repair but subsequently admitted to [place] for management of electrolyte abnormalities with a course that was c/b by development of a large hematoma and severe pain in the left upper extremity and was transferred for surgical interv ention now s/p ORIF of left humeral fracture with left humeral intramedullary nail insertion with course c/b presumed sepsis w/ fever, mild leukocytosis and now will complete a course for presumed CAP. PLAN: Acute on chronic anemia i/s/o hematoma -s/p 1u pRBC, goal hgb >8 -Borderline iron deficient, with ferritin ~100, and low Fe, will start on ferrous sulfate daily Left humeral fx: s/p L ORIF - S/p orif with orthopedics, ortho on consult - percocet Q4HPRN for severe pain - bowel regimen ordered - PT/OT, pending official recs Sepsis 2/2/ presumed CAP -All antihypertensives were held, except for BB -s/p fluids -Day 3 of abx, on levaquin -MRSA PCR negative, BCx negative to date, UA negative for bacteria -CXR showed some hilar reticulonofular opacities, +procal, UA was bland, BCx NGTD Chronic A-fib - pt had transient episode of rvr while in the pacu most likely 2/2 pain - tele and monitor rate - continue home metoprolol - restart xarelto Alcoholic liver cirrhosis - pt continues to drink, on ciwa protocol - liver enzymes showing 2:1 ast:alt ratio, typical of alcoholic liver dz COPD: no evidence of acute exacerbation - pt requiring oxygen at this time, however this is more likely secondary to anesthesia - will continue o2 titrated to 88-92 - monitor - continue at home inhalers CKD - cr at baseline HTN - Holding amlodipine, lasix, spironolactone while presumed septic Gout - continue allopurinol DVT prophylaxis - mechanical for now Dispo: pending PT/OT recs VS,Carl[place]ana paula, I+O VS, Carlitosbone, I+O Laboratory Tests 05/09/21 05:34 Vital Signs Date Time Temp Pulse Resp B/P (MAP) Pulse Ox O2 Delivery O2 Flow Rate FiO2 05/09/21 08:06 16 93 Nasal Cannula 3.0 05/09/21 08:00 97.5 84 142/67 (92) I&O- Last 24 Hours up to 6 AM 05/09/21 06:00 Intake Total 2590 ml Output Total 2150 ml Balance 440 ml GRABIEL RIVAS MD May 09, 2021 08:48
[2021-05-09] MEDS: zolPIDEM TARTRATE 5 MG TAB PO SCH (21:58)
[2021-05-09] MEDS: ACETAMINOPHEN TAB 650MG DOSE (2X325MG) PO PRN (22:11)
[2021-05-09] MEDS ORDERED: PERCOCET 5MG/325MG TAB PO ONE (23:20)
[2021-05-10] MEDS: IPRATROPIUM 0.5MG/ALBUTEROL 2.5MG INH SOL UD 3ML (DUONEB) NEB SCH ×4 (01:36→19:50)
[2021-05-10] MEDS: PERCOCET 5MG/325MG TAB PO PRN ×4 (03:11→19:57)
[2021-05-10] MEDS: LevoFLOXacin 750 MG TABLET PO SCH (05:46)
[2021-05-10] MEDS: METOPROLOL TART 25 MG TABLET PO SCH ×3 (05:46→21:30)
[2021-05-10 06:00] VITALS: BP 128/72
[2021-05-10 06:50] LABS: HEMOGLOBIN 9.5 g/dl (13.5-17.5); MEAN CORPUSCULAR HEMOGLOBIN 30.4 pg (27.0-33.0); MEAN CORPUSCULAR HGB CONC 30.6 g/dl (32.0-36.5); MEAN CORPUSCULAR VOLUME 99.4 fl (80.0-96.0); PLATELET COUNT, AUTOMATED 168 10^3/uL (150-450); RED BLOOD COUNT 3.12 10^6/uL (4.30-6.10); WHITE BLOOD COUNT 7.7 10^3/uL (4.0-10.0)
[2021-05-10 07:15] LABS: ALBUMIN 2.1 GM/DL (3.2-5.2); ALT/SGPT 14 U/L (12-78); BILIRUBIN,TOTAL 0.6 MG/DL (0.2-1.0); BLOOD UREA NITROGEN 18 MG/DL (7-18); CALCIUM LEVEL 8.9 MG/DL (8.8-10.2); CARBON DIOXIDE LEVEL 35 MEQ/L (21-32); CHLORIDE LEVEL 100 MEQ/L (98-107); CREATININE FOR GFR 1.02 MG/DL (0.70-1.30); GLOMERULAR FILTRATION RATE > 60.0 (>49); GLUCOSE, FASTING 103 MG/DL (70-100); MAGNESIUM LEVEL 1.8 MG/DL (1.8-2.4); SODIUM LEVEL 135 MEQ/L (136-145); TOTAL PROTEIN 5.9 GM/DL (6.4-8.2)
[2021-05-10] MEDS: SYMBICORT 80/4.5MCG INHALER 6GM INH SCH ×2 (07:29→19:50)
--- NOTE | 2021-05-10 09:02 | IPN ---
PROGRESS NOTE DATE: 05/09/2021 TIME: 6:27 p.m. SERVICE: Orthopedic Surgery SUBJECTIVE: This is a 65-year-old male postop day #4 of a left humeral shaft open reduction internal fixation. Patient was resting comfortably in bed today using his upper extremity. His negative pressure wound therapy has been removed and I removed his BOUBACAR drain at today's visit. OBJECTIVE: Wound dressing was clean, dry and intact. His BOUBACAR drain had drained less than 20 ml over the last 12 hour shift. The BOUBACAR drain was removed and there is significant third spacing fluid which was evacuated with a drain, approximately 100 ml. This was serosanguinous third space fluid. The left upper extremity is otherwise neurovascularly intact, 5/5 motor strength to the musculocutaneous, axillary, radial, median and ulnar nerve distributions. He had sensation intact to the musculocutaneous, axillary, radial, median and ulnar nerve distributions. He had a palpable radial and ulnar pulse of the left upper extremity, brisk capillary refill to the digits. His hand swelling is continuing to improve. ASSESSMENT: A 65-year-old male postop day #4, left humeral shaft open reduction internal fixation. Patient is doing very well at this point. PLAN: At this point in time, Physical Therapy needs to continue to work the patient's left upper extremity for range of motion as tolerated, strengthening. There are no limitations to either his weightbearing or his range of motion at this time. I also recommend that Physical Therapy work with him or at least authorize him to proceed with gait training. Patient has been bed-ridden for four days for an upper extremity injury. This is not ideal. I would rather the patient start doing laps with his walker for ambulation. He is free to use his left upper extremity, weightbearing as tolerated on the walker so he can support his weight. This will also help with some of his fluid build-up in his lungs. [facility] 05[facility]16[facility]2021 for a wound check with Dr. Hernandez.
[2021-05-10] MEDS: MULTIVITAMINS/MINERALS THERAP 1 TAB PO SCH (09:24)
[2021-05-10] MEDS: allopurinoL 100 MG TAB PO SCH (09:24)
[2021-05-10] MEDS: guaiFENesin ER 600 MG TAB PO SCH ×2 (09:24→21:30)
[2021-05-10] MEDS: FUROSEMIDE 40 MG TAB PO SCH (09:24)
[2021-05-10] MEDS: DOCUSATE SODIUM 100MG CAPSULE PO SCH ×2 (09:24→21:28)
[2021-05-10] MEDS: FOLIC ACID 1 MG TAB PO SCH (09:25)
[2021-05-10] MEDS: ACETAMINOPHEN TAB 650MG DOSE (2X325MG) PO PRN (10:40)
[2021-05-10 14:00] VITALS: BP 131/77
--- NOTE | 2021-05-10 14:37 | IPNPDOC ---
Text Note Date of Service The patient was seen on 05/10/21. NOTE SUBJECTIVE: -Afebrile, no subjective fever or chills -Frustrated that he may not be able to go to rehab, is not feeling confident about the idea of going home where he lives alone at this time. OBJECTIVE: VITAL SIGNS: Please see below. GENERAL APPEARANCE: Left arm in sling. NAD HEENT: NCAT, EOMI, MMM CARDIOVASCULAR: Irregularly irregular rhythm. No murmurs, rubs, gallops LUNGS: Diminished breath sounds without noted wheezing, rales, rhonchi ABDOMEN: Normoactive bowel sounds, soft, NTND MUSCULOSKELETAL:Left upper extremity in sling, edematous w/ ecchymoses. EXTREMITIES: No pedal edema, 2+ DP pulses, WWP NEUROLOGICAL: A+Ox3. No focal deficits, sensation present in LUE, moves fingers PSYCHIATRIC: AOx3 LABORATORY DATA: Reviewed, stable MRSA negative IMAGING: Hand XR: FINDINGS: Bones/joints: No acute fracture or dislocation. Soft tissues: Diffuse soft tissue swelling of the hand and distal forearm extending into the proximal fingers. IMPRESSION: 1. Diffuse soft tissue swelling. 2. Otherwise negative limited left hand. CXR: Lungs: Mild bilateral perihilar reticulonodular opacities. Pleural spaces: Unremarkable. No pleural effusion. No pneumothorax. Heart/Mediastinum: Cardiomegaly. Vasculature: Atherosclerotic disease of the thoracic aorta. Bones/joints: Unremarkable. IMPRESSION: Mild bilateral perihilar reticulonodular opacities. MICROBIOLOGY: Please see below. ASSESSMENT: 65 y/o M with a history of chronic a-fib on xarelto, htn, liver cirrhosis, copd, gout, fatou who does not wear cpap and obesity who was originally seen in our ED on 04/25 after he suffered a fall and was subsequently diagnosed with a left humeral fracture and discharged home with sling with plan for outpatient repair but subsequently admitted to [place] for management of electrolyte abnormalities with a course that was c/b by development of a large hematoma and severe pain in the left upper extremity and was transferred for surgical intervention now s/p ORIF of left humeral fracture with left humeral intramedullary nail insertion with course c/b presumed sepsis w/ fever, mild leukocytosis and now will complete a course for presumed CAP. PLAN: Acute on chronic anemia i/s/o hematoma: now stable -s/p 1u pRBC, goal hgb >8 -Borderline iron deficient, with ferritin ~100, and low Fe, on ferrous sulfate daily Left humeral fx: s/p L ORIF - S/p orif with orthopedics, ortho on consult - percocet [id number] for severe pain - bowel regimen ordered - PT/OT, pending official recs Sepsis 2/2/ presumed CAP -All antihypertensives were held, except for BB -s/p fluids -Day 4 of abx, on levaquin -MRSA PCR negative, BCx negative to date, UA negative for bacteria -CXR showed some hilar reticulonofular opacities, +procal, UA was bland, BCx NGTD Chronic A-fib - pt had transient episode of rvr while in the pacu most likely 2/2 pain - tele and monitor rate - continue home metoprolol - restart xarelto Alcoholic liver cirrhosis - pt continues to drink, on ciwa protocol - liver enzymes showing 2:1 ast:alt ratio, typical of alcoholic liver dz COPD: no evidence of acute exacerbation - pt requiring oxygen at this time, however this is more likely secondary to anesthesia - will continue o2 titrated to 88-92 - monitor - continue at home inhalers CKD - cr at baseline HTN - Holding amlodipine, lasix, spironolactone while presumed septic Gout - continue allopurinol DVT prophylaxis - mechanical for now Dispo: pending final PT/OT recs, otherwise medically stable, to complete PO abx for CAP which can be done from home or rehab. VS,Fishbone, I+O VS, Fishbone, I+O Laboratory Tests 05/10/21 06:28 Vital Signs Date Time Temp Pulse Resp B/P (MAP) Pulse Ox O2 Delivery O2 Flow Rate FiO2 05/10/21 09:59 18 Room Air 05/10/21 09:29 75 136/73 05/10/21 06:00 98.8 93 05/09/21 14:00 1.0 I&O- Last 24 Hours up to 6 AM 05/10/21 05:59 Intake Total 2820 ml Output Total 2750 ml Balance 70 ml GRABIEL RIVAS MD May 10, 2021 14:37
[2021-05-10] MEDS: zolPIDEM TARTRATE 5 MG TAB PO SCH (21:30)
[2021-05-10 22:00] VITALS: BP 158/83
[2021-05-11] MEDS: PERCOCET 5MG/325MG TAB PO PRN ×4 (00:42→14:35)
[2021-05-11] MEDS: IPRATROPIUM 0.5MG/ALBUTEROL 2.5MG INH SOL UD 3ML (DUONEB) NEB SCH ×3 (01:13→14:00)
[2021-05-11 05:47] VITALS: BP 154/85
[2021-05-11] MEDS: METOPROLOL TART 25 MG TABLET PO SCH (05:47)
[2021-05-11] MEDS: LevoFLOXacin 750 MG TABLET PO SCH (05:48)
[2021-05-11 06:00] VITALS: BP 154/85
[2021-05-11] MEDS: SYMBICORT 80/4.5MCG INHALER 6GM INH SCH (07:19)
[2021-05-11 07:22] LABS: HEMATOCRIT 29.9 % (42.0-52.0); HEMOGLOBIN 9.3 g/dl (13.5-17.5); MEAN CORPUSCULAR HEMOGLOBIN 30.6 pg (27.0-33.0); MEAN CORPUSCULAR HGB CONC 31.1 g/dl (32.0-36.5); MEAN CORPUSCULAR VOLUME 98.4 fl (80.0-96.0); PLATELET COUNT, AUTOMATED 192 10^3/uL (150-450); RED BLOOD COUNT 3.04 10^6/uL (4.30-6.10); WHITE BLOOD COUNT 8.1 10^3/uL (4.0-10.0)
[2021-05-11 07:49] LABS: ALBUMIN 2.2 GM/DL (3.2-5.2); ALT/SGPT 16 U/L (12-78); BILIRUBIN,TOTAL 0.6 MG/DL (0.2-1.0); BLOOD UREA NITROGEN 18 MG/DL (7-18); CALCIUM LEVEL 8.7 MG/DL (8.8-10.2); CARBON DIOXIDE LEVEL 31 MEQ/L (21-32); CHLORIDE LEVEL 97 MEQ/L (98-107); CREATININE FOR GFR 0.98 MG/DL (0.70-1.30); GLOMERULAR FILTRATION RATE > 60.0 (>49); GLUCOSE, FASTING 94 MG/DL (70-100); MAGNESIUM LEVEL 1.8 MG/DL (1.8-2.4); POTASSIUM SERUM 4.4 MEQ/L (3.5-5.1); SODIUM LEVEL 134 MEQ/L (136-145); TOTAL PROTEIN 5.3 GM/DL (6.4-8.2)
[2021-05-11] MEDS: FUROSEMIDE 40 MG TAB PO SCH (07:49)
[2021-05-11] MEDS: MULTIVITAMINS/MINERALS THERAP 1 TAB PO SCH (07:49)
[2021-05-11] MEDS: FOLIC ACID 1 MG TAB PO SCH (07:49)
[2021-05-11] MEDS: allopurinoL 100 MG TAB PO SCH (07:50)
[2021-05-11] MEDS: guaiFENesin ER 600 MG TAB PO SCH (07:50)
[2021-05-11] MEDS: DOCUSATE SODIUM 100MG CAPSULE PO SCH (07:50)
[2021-05-11] MEDS ORDERED: LEVO750T13 PO (08:35)
[2021-05-11] MEDS ORDERED: MUCI600T31 PO (08:35)
--- NOTE | 2021-05-11 10:30 | DS.PDOC ---
Discharge Summary General Date of Admission May 06, 2021 at 00:24 Date of Discharge 05/11/21 Discharge Summary DISCHARGE SUMMARY DICTATED JOB # [id number] Vital Signs/I&Os Vital Signs Date Time Temp Pulse Resp B/P (MAP) Pulse Ox O2 Delivery O2 Flow Rate FiO2 05/11/21 10:19 18 Room Air 05/11/21 06:00 98.0 75 154/85 (108) 95 05/09/21 14:00 1.0 I&O- Last 24 Hours up to 6 AM 05/11/21 06:00 Intake Total 1920 ml Output Total 3750 ml Balance -1830 ml Laboratory Data Labs 24H Laboratory Tests 2 05/11/21 06:59: Nucleated Red Blood Cells % (auto) 0.0, Anion Gap 6L, Glomerular Filtration Rate > 60.0, Calcium Level 8.7L, Magnesium Level 1.8, Total Bilirubin 0.6, Aspartate Amino Transf (AST/SGOT) 23, Alanine Aminotransferase (ALT/SGPT) 16, Alkaline Phosphatase 85, Total Protein 5.3L, Albumin 2.2L, Albumin/Globulin Ratio 0.7 CBC/BMP Laboratory Tests 05/11/21 06:59 Microbiology Microbiology 05/06/21 Blood Culture - Final, Complete NO GROWTH AFTER 5 DAYS 05/06/21 Blood Culture - Final, Complete NO GROWTH AFTER 5 DAYS 05/06/21 Urine Culture - Final, Complete 05/06/21 Respiratory Virus Panel (PCR) (LE) - Final, Complete Discharge Medications Scheduled Allopurinol (Allopurinol) 100 Mg Tablet, 100 MG PO DAILY, (Reported) Amlodipine Besylate (Amlodipine Besylate) 10 Mg Tablet, 10 MG PO DAILY, (Reported) Folic Acid (Folic Acid) 1 Mg Tablet, 1 MG PO DAILY, (Reported) Furosemide (Furosemide) 40 Mg Tablet, 40 MG PO DAILY, (Reported) Guaifenesin (Mucinex) 600 Mg Tab.er.12h, 600 MG PO BID Levofloxacin (Levofloxacin) 750 Mg Tablet, 750 MG PO DAILY@06 Metoprolol Tartrate (Metoprolol Tartrate) 25 Mg Tablet, 25 MG PO TID, (Reported) Potassium Chloride (Potassium Chloride) 10 Meq Tab.er.prt, 10 MEQ PO DAILY, (Reported) Spironolactone (Spironolactone) 25 Mg Tablet, 25 MG PO DAILY, (Reported) Scheduled PRN Albuterol Sulfate (Albuterol Sulfate Hfa) 8.5 Gm Hfa.aer.ad, 2 PUFFS INH QID PRN for SHORTNESS OF BREATH, (Reported) Nitroglycerin (Nitroglycerin) 0.4 Mg Tab.subl, 0.4 MG SL NITRO PRN for CHEST GEN N, (Reported) Oxycodone HCl/Acetaminophen (Oxycodone-Acetaminophen 10-325) 1 Each Tablet, 1 TAB PO TID PRN for PAIN, (Reported) Oxycodone HCl/Acetaminophen (Percocet 5-325 mg Tablet) 1 Each Tablet, 1 TAB PO Q6H PRN for PAIN Zolpidem Tartrate (Zolpidem Tartrate) 10 Mg Tablet, 10 MG PO QHS PRN for SLEEP, (Reported) Allergies Coded Allergies: No Known Allergies (Unverified , 05/02/21) DELANO BARRETO MD May 11, 2021 10:30
[2021-05-11] MEDS ORDERED: PERC10TA26 PO (10:52)
--- NOTE | 2021-05-11 11:37 | DSES ---
DISCHARGE SUMMARY DATE OF ADMISSION: 05/06/2021 DATE OF DISCHARGE: 05/11/2021 MOVEMENT EDUCATION SPECIALIST: Wayne Hernandez MD, Orthopedics. PROCEDURE: 05/05/2021 left humerus open reduction internal fixation with 500 mL hematoma status post 1 unit RBC transfusion. PRIMARY DISCHARGE DIAGNOSES: 1. Left humeral fracture status post left ORIF with 500 mL hematoma in the setting of chronic Xarelto for afib which was held, requiring 1 unit RBC transfusion. 2. Acute on chronic anemia status post hematoma requiring blood transfusion 1 unit. 3. Sepsis secondary to community acquired pneumonia. 4. Chronic atrial fibrillation. 5. Alcoholic liver cirrhosis. 6. COPD. 7. Chronic kidney disease stage 3. 8. Hypertension. 9. Gout. DISCHARGE MEDICATIONS: 1. Mucinex 600 twice a day. 2. Levaquin 750 daily. 3. Albuterol four times a day. 4. Allopurinol 100 daily. 5. Norvasc 10 daily. 6. Folic acid 1 mg daily. 7. Lasix 40 daily. 8. Metoprolol 25 three times a day. 9. Nitroglycerin 0.4 as needed for chest pain. 10. Percocet 1 tablet three times a day for pain. 11. Percocet 1 tablet q6h as needed for severe pain. 12. Potassium 10 mEq daily. 13. Spironolactone 25 daily. 14. Ambien 10 at bedtime. 15. Xarelto held due to recent hematoma requiring 1 unit RBC transfusion. DISCHARGE INSTRUCTIONS: 1. Post-op management per orthopedic surgery. 2. Primary care physician follow up within 5 days of hospital discharge. 3. Orthopedic follow up within 5 days of hospital discharge. HISTORY AND HOSPITAL COURSE: This is a 65-year-old male admitted on 05/06/2021 due to a left humeral fracture, transferred from [facility]. Patient was supposed to have outpatient surgery, but presented to [facility] Emergency Room, found to be hyponatremic with elevated white count with persistent left arm pain and edema. Duplex ultrasound showed a large hematoma that formed. Dr. Hernandez was called by [facility] to transfer the patient to [facility]. Patient underwent left humeral fracture repair with left humeral intramedullary nail insertion with 500 mL post-op hematoma requiring 1 unit RBC transfusion. He had a transient episode of afib with rapid ventricular rate and was controlled on metoprolol. Patient was in PCU until rate was controlled. His COPD remained compensated saturating 88-92%. Patient was found to have elevated AST/ALT due to alcoholic liver cirrhosis without decompensation. Patient worked with physical therapy and occupational therapy, had blood pressure ranging from 128-154, but controlled with medications back into the 120s. He was found on x-ray to have infiltrate and was started on I.V. vanco and Zosyn. Blood cultures were negative. Respiratory panel was negative. No sputum culture was available. Urine culture was negative. Patient had no white count. He had no fever throughout his hospital stay aside from 05/06/2021 at 100.3. He was transitioned to oral Levaquin 750 daily to complete at home. He was rate controlled and still off of his Xarelto due to hemoglobin dropping to 7.6 requiring 1 unit RBC transfusion due to 500 mL hematoma. PHYSICAL EXAMINATION ON DISCHARGE: Temperature 98, pulse 75, respiratory rate 20, blood pressure 154/85, 95% on room air. General: Awake, alert, oriented times 3, no distress, no cyanosis or pallor. Speaks in full sentences. Extremities: Left upper arm in a sling, edematous with ecchymosis. Extremities with no pitting edema. Patient has no neurological deficits of the left upper extremity. Sensation is intact. Radial and ulnar pulses are noted. HEENT: Normocephalic, atraumatic. Moist mucous membranes. Heart: S1 and S2 irregularly irregular not tachycardic. Lungs: Diminished, no wheezes, rhonchi or rales. Abdomen: Soft, nontender, nondistended, positive bowel sounds. Skin: Warm, dry, well perfused, pink in color. LABORATORY DATA/IMAGING STUDIES/MICROBIOLOGY: Please see the chart. Time spent on discharge: Thirty minutes MTDD
== END 2021-05-11 14:50 | disposition home health service (06) | DRG 853 ==
LOC: M SDC 13:02 → M ED INP 05-06 00:24 → M PCU 05-06 01:19 → M MS5PR 05-09 11:11
PROVIDERS: ADMIT Internal Medicine; ATTEND Orthopaedic Surgery
PROC: 0PSG06Z Reposition Left Humeral Shaft with Intramedullary Internal Fixation Device, Open Approach (ICD-10-PCS; principal; 2021-05-05 17:30)
PROC: 30233N1 Transfusion of Nonautologous Red Blood Cells into Peripheral Vein, Percutaneous Approach (ICD-10-PCS; 2021-05-07)
DX: A41.9 Sepsis, unspecified organism (principal); J18.9 Pneumonia, unspecified organism; I48.20 Chronic atrial fibrillation, unspecified; S42.302A Unspecified fracture of shaft of humerus, left arm, initial encounter for closed fracture; I12.9 Hypertensive chronic kidney disease with stage 1 through stage 4 chronic kidney disease, or unspecified chronic kidney disease; K70.30 Alcoholic cirrhosis of liver without ascites; J44.9 Chronic obstructive pulmonary disease, unspecified; M10.9 Gout, unspecified; G47.33 Obstructive sleep apnea (adult) (pediatric); E66.9 Obesity, unspecified; F10.10 Alcohol abuse, uncomplicated; F12.10 Cannabis abuse, uncomplicated; N18.30 Chronic kidney disease, stage 3 unspecified; Z79.899 Other long term (current) drug therapy; Z79.01 Long term (current) use of anticoagulants; Z96.643 Presence of artificial hip joint, bilateral; Z87.891 Personal history of nicotine dependence; Z20.822 Contact with and (suspected) exposure to COVID-19; D64.9 Anemia, unspecified; S40.012A Contusion of left shoulder, initial encounter; W01.0XXA Fall on same level from slipping, tripping and stumbling without subsequent striking against object, initial encounter; Y92.009 Unspecified place in unspecified non-institutional (private) residence as the place of occurrence of the external cause

== ENCOUNTER → 2021-05-16 | Outpatient (CLI) | payer MEDICARE ==
[~2021-05-16] MED LIST changes: +LEVO750T13 PO; -LIDOCAINE 2% 100MG/5ML SDV (FOR ANES.) As Ordered ONE; -MIDAZOLAM INJ 2MG/2ML VIAL (J2250 PER 1MG) As Ordered ONE; +MUCI600T31 PO; -ONDANSETRON 4MG/2ML VIAL As Ordered ONE; +PERC10TA26 PO; -PHENYLephrine 500MCG 5ML (100MCG/ML) SYRINGE As Ordered ONE; -ROCURONIUM BROMIDE 50 MG/5 ML VIAL As Ordered ONE; -SUGAMMADEX SODIUM 500 MG/5 ML VIAL (BRIDION) As Ordered ONE; -dexameTHASONE 4 MG/ML 1ML VIAL (J1100 PER 1MG) As Ordered ONE; -ePHEDrine SULFATE 25 MG/5 ML(5MG/ML) SYRINGE As Ordered ONE; -fentaNYL 250 MCG/5 ML INJECTION (J3010) As Ordered ONE; -propofoL 200 MG/20 ML VIAL As Ordered ONE
--- NOTE | 2021-05-16 17:02 | REP ---
INDICATION: LT HUMERUS FX. COMPARISON: None. TECHNIQUE: Four views of the left humerus were obtained. FINDINGS: A surgical plate and screws stabilize the spiral fractures of the mid left humerus in anatomic position alignment without evidence of complication. IMPRESSION: ORIF without evidence of complication. <Electronically signed by Alexander Evangelista > 05/16/21 [id number]
== END ==
LOC: M SOG 08:51
PROVIDERS: ATTEND Orthopaedic Surgery
DX: S42.302D Unspecified fracture of shaft of humerus, left arm, subsequent encounter for fracture with routine healing (principal); Y92.9 Unspecified place or not applicable; Y93.9 Activity, unspecified; Y99.9 Unspecified external cause status

== ENCOUNTER → 2021-06-27 | Outpatient (CLI) | payer MEDICARE ==
[2021-06-27 13:37] LABS: BASO # 0.1 10^3/uL (0.0-0.2); BASO % 0.8 % (0.0-1.0); EOS # 0.1 10^3/uL (0.0-0.5); EOS % 0.8 % (0.0-3.0); HEMATOCRIT 39.4 % (42.0-52.0); HEMOGLOBIN 12.6 g/dl (13.5-17.5); LYMPH # 0.7 10^3/uL (1.5-5.0); MEAN CORPUSCULAR HEMOGLOBIN 29.2 pg (27.0-33.0); MEAN CORPUSCULAR VOLUME 91.2 fl (80.0-96.0); MONO # 0.7 10^3/uL (0.0-0.8); NEUTROPHILS # 5.8 10^3/uL (1.5-8.5); PLATELET COUNT, AUTOMATED 213 10^3/uL (150-450); RED BLOOD COUNT 4.32 10^6/uL (4.30-6.10); WHITE BLOOD COUNT 7.3 10^3/uL (4.0-10.0)
[2021-06-27 13:58] LABS: ERYTHROCYTE SEDIMENTATION RATE 34 mm/hr (0-20)
== END ==
LOC: M LAB 12:24
PROVIDERS: ATTEND Orthopaedic Surgery
DX: S42.302D Unspecified fracture of shaft of humerus, left arm, subsequent encounter for fracture with routine healing (principal); X58.XXXD Exposure to other specified factors, subsequent encounter; Y92.89 Other specified places as the place of occurrence of the external cause

== ENCOUNTER → 2021-06-27 | Outpatient (CLI) | payer MEDICARE ==
--- NOTE | 2021-06-27 11:01 | REP ---
INDICATION: UNSP FX SHAFT OF HUMERUS LT ARM SUBS FOR FX W ROUTN HEAL. COMPARISON: 05/16/2021 TECHNIQUE: AP, lateral views of the left humerus FINDINGS: The current examination demonstrates a single free screw overlying the superior aspect of the fixation plate which appears to have been dislodged from the superior aspect of the plate itself and there is angulation to the oblique fracture along with extensive surrounding heterotopic ossification in the surrounding soft tissues. IMPRESSION: Extensive subsequent irregular changes highly suspicious for re-injury and displaced orthopedic hardware with the possibility of underlying osteomyelitis. <Electronically signed by Jensen Tadeo > 06/27/21 [id number]
== END ==
LOC: M SOG 08:52
PROVIDERS: ATTEND Orthopaedic Surgery
DX: S42.302D Unspecified fracture of shaft of humerus, left arm, subsequent encounter for fracture with routine healing (principal); R93.7 Abnormal findings on diagnostic imaging of other parts of musculoskeletal system; Y92.9 Unspecified place or not applicable; Y93.9 Activity, unspecified; Y99.9 Unspecified external cause status

== ENCOUNTER → 2021-07-06 | Outpatient (CLI) | payer MEDICARE ==
--- NOTE | 2021-07-06 16:23 | REP ---
INDICATION: LT HUMERUS FX. COMPARISON: 05/16/2021, 06/27/2021 TECHNIQUE: AP and lateral views of the left humerus FINDINGS: Orthopedic plate and screws along with underlying fracture with considerable heterotopic ossification/myositis ossificans is similar to most recent prior examination. IMPRESSION: No change in abnormal findings as compared with 06/27/2021. Underlying osteomyelitis cannot be excluded by radiographic evaluation. <Electronically signed by Jensen Tadeo > 07/06/21 [id number]
== END ==
LOC: M SOG 09:23
PROVIDERS: ATTEND Orthopaedic Surgery
DX: S42.302D Unspecified fracture of shaft of humerus, left arm, subsequent encounter for fracture with routine healing (principal)